=== PATIENT | female | born 1945 | race Caucasian/White ===

== ENCOUNTER → 2020-06-09 09:35 | Outpatient (BNVA) | payer MEDICARE, SELFPAY | PROVIDERS: PCP Internal Medicine; Referring Provider Internal Medicine; Visit Provider Orthopaedic Surgery | DX: M17.12 Unilateral primary osteoarthritis, left knee (principal) | CPT/HCPCS: 20610; 99212; J1040 ==

== ENCOUNTER 2020-08-05 10:40 | Outpatient (REF) | payer MEDICARE, SELFPAY ==
--- NOTE | ~2020-08-05 | XR_ITS ---
EXAMINATION: XR HIP, RIGHT CLINICAL INFORMATION: Pain COMPARISON: None TECHNIQUE: Two views of the right hip and one view of the pelvis. FINDINGS: There is right hip arthritis with joint space narrowing and osteophyte formation. There is a left hip replacement in satisfactory position. There is a soft tissue calcification or ossification adjacent to the left greater trochanter that is unchanged. Bones of the pelvis are unremarkable. There are central pelvic calcifications probably representing calcified fibroids that are stable. There is evidence of atherosclerotic disease. XR/XR hip RT w PEL1V IMPRESSION: Right hip arthritis. Satisfactory appearance of left hip replacement.
== END 2020-08-05 10:41 | disposition home or self-care (01) ==
LOC: HO.HOSX 10:40
PROVIDERS: Visit Provider Orthopaedic Surgery
DX: Z13.89 Encounter for screening for other disorder (principal)

== ENCOUNTER → 2020-08-07 09:01 | Outpatient (BNVA) | payer MEDICARE, SELFPAY | PROVIDERS: Visit Provider Orthopaedic Surgery | DX: M16.11 Unilateral primary osteoarthritis, right hip (principal) | CPT/HCPCS: 73502; 99212 ==

== ENCOUNTER → 2020-09-04 09:09 | Outpatient (BNVA) | payer MEDICARE, SELFPAY | PROVIDERS: Visit Provider Orthopaedic Surgery | DX: M16.11 Unilateral primary osteoarthritis, right hip (principal) | CPT/HCPCS: 99212 ==

== ENCOUNTER 2020-09-15 06:56 | Outpatient (REF) | payer MEDICARE, SELFPAY ==
[2020-09-15 07:29] LABS: Basophils Absolute Auto 0.1 X10*3/uL (0.0-0.2); Basophils Percent Auto 0.8 % (0-2); Eosinophils Absolute Auto 0.4 X10*3/uL (0.0-0.4); Eosinophils Percent Auto 4.5 % (0-4); Hematocrit 40.1 % (37-47); Hemoglobin 13.6 g/dl (12.0-16.0); Imm Gran Abs Auto 0.02 X10*3/uL (0.00-0.03); Imm Gran Pct Auto 0.3 % (0.0-0.4); Lymphocytes Absolute Auto 2.9 X10*3/uL (1.2-4.9); Lymphocytes Percent Auto 36.8 % (20-40); MANUAL DIFF FLAG NO; Mean Corpuscular HGB Conc 33.9 g/dl (31.0-35.0); Mean Corpuscular Hemoglobin 29.4 pg (27.0-33.0); Mean Corpuscular Volume 86.6 fL (80-98); Mean Platelet Volume 9.8 fL (9.4-12.3); Monocytes Absolute Auto 0.4 X10*3/uL (0.1-1.2); Monocytes Percent Auto 5.4 % (2-11); Neutrophils Absolute Auto 4.2 X10*3/uL (2.0-8.3); Neutrophils Percent Auto 52.2 % (45-73); Platelet Count 289 X10*3/uL (160-400); Red Blood Count 4.63 X10*6/uL (4.20-5.50); Red Cell Distribution Width 13.5 % (11.0-16.0)
[2020-09-15 07:55] LABS: Alanine Aminotransferase 24 U/L (0-31); Albumin Level 4.3 g/dL (3.5-5.0); Alkaline Phosphatase 59 U/L (39-117); Anion Gap 16 (12-20); Aspartate Amino Transferase 18 U/L (5-31); Bilirubin Total 0.7 mg/dL (0.0-1.0); Blood Urea Nitrogen 27 mg/dL (9-16); Calcium 9.2 mg/dL (8.4-10.2); Carbon Dioxide 21 mmol/L (22-29); Chloride 107 mmol/L (96-108); Cholesterol 93 mg/dL; Estimated Glomerular Filt Rate 54; Glucose Random 117 mg/dL (60-115); HDL Cholesterol 34 mg/dL; LDL Cholesterol Calculated 24 mg/dl; Potassium 4.8 mmol/L (3.3-5.1); Sodium 139 mmol/L (135-145); Total Protein 6.6 g/dL (6.5-8.0); Triglycerides 176 mg/dL
[2020-09-15 08:14] LABS: Free T4 (Free Thyroxine) 0.89 ng/dL (0.71-1.85); Thyroid Stimulating Hormone 3.23 uIU/mL (0.32-4.0); Vitamin D 25-OH Total 25.2 ng/mL (>30)
[2020-09-15 08:17] LABS: Estimated Average Glucose 157 mg/dL; Hemoglobin A1c % 7.1 %
[2020-09-15 09:28] LABS: Folate > 20.0 ng/mL (> or = 4.0); Vitamin B12 949 pg/mL (200-900)
[2020-09-15 11:19] LABS: Creatinine Urine 141.52 mg/dL; Microalbum/Creatinine Ratio Ur 15.5 ug/mg cr
== END 2020-09-15 06:57 | disposition home or self-care (01) ==
LOC: HO.LAB 06:56
PROVIDERS: PCP Internal Medicine; Visit Provider Internal Medicine
DX: I10 Essential (primary) hypertension (principal); E78.00 Pure hypercholesterolemia, unspecified; E11.65 Type 2 diabetes mellitus with hyperglycemia
CPT/HCPCS: 36415; 80053; 80061; 82043; 82306; 82607; 82746; 83036; 84439; 84443; 85025

== ENCOUNTER 2020-09-19 09:35 | Outpatient (REF) | payer MEDICARE, SELFPAY ==
--- NOTE | ~2020-09-19 | MM_ITS ---
EXAMINATION: MM SCREENING DIGITAL BREAST TOMOSYNTHESIS, BILATERAL CLINICAL INFORMATION: Screening. Asymptomatic. Remote history reduction mammoplasty 1986. The lifetime risk of breast cancer based on the Tyrer-Cuzick Model is 5%. COMPARISON: Mammography: 01/03/2019, 11/19/2015 TECHNIQUE: Digital breast tomosynthesis is performed in both the craniocaudal and mediolateral oblique views along with computer-aided detection (CAD). Synthesized 2D images are generated from the tomosynthesis. FINDINGS: There are scattered areas of fibroglandular density (ACR BI-RADS breast composition Category b). There are no significant masses, abnormal calcifications, or other abnormalities. Again, there is minor background scarring and scattered benign coarse and dystrophic calcifications, greater on left, consistent with the prior reduction mammoplasty. There are some dermal calcifications seen posterior medial breasts and a dermal lesion posterior medial left breast. There are no significant changes from prior studies. MM/MM tomosynthesis screening BI IMPRESSION: No mammographic evidence of malignancy. ASSESSMENT: BI-RADS 2: Benign RECOMMENDATION: Routine annual mammography screening. This patient's information was entered into a reminder system with a target due date for their next mammogram.
== END 2020-09-19 09:36 | disposition home or self-care (01) ==
LOC: HO.MAMMO 09:35
PROVIDERS: PCP Internal Medicine; Visit Provider Internal Medicine
DX: Z12.31 Encounter for screening mammogram for malignant neoplasm of breast (principal)
CPT/HCPCS: 77063; 77067

== ENCOUNTER → 2021-02-03 10:31 | Outpatient (BNVA) | payer MEDICARE, SELFPAY | PROVIDERS: PCP Internal Medicine; Visit Provider Orthopaedic Surgery | DX: M17.12 Unilateral primary osteoarthritis, left knee (principal) | CPT/HCPCS: 20610; 99212; J1040 ==

== ENCOUNTER → 2021-06-04 09:08 | Outpatient (BNVA) | payer MEDICARE, SELFPAY | PROVIDERS: PCP Internal Medicine; Visit Provider Orthopaedic Surgery | DX: M17.12 Unilateral primary osteoarthritis, left knee (principal); E11.65 Type 2 diabetes mellitus with hyperglycemia; F17.210 Nicotine dependence, cigarettes, uncomplicated | CPT/HCPCS: 20610; 99212; J1100 ==

== ENCOUNTER 2021-09-13 06:29 | Outpatient (REF) | payer MEDICARE, SELFPAY ==
[2021-09-13 06:45] LABS: MANUAL DIFF FLAG NO
[2021-09-13 07:21] LABS: Basophils Absolute Auto 0.1 X10*3/uL (0.0-0.2); Basophils Percent Auto 0.6 % (0-2); Eosinophils Absolute Auto 0.4 X10*3/uL (0.0-0.4); Eosinophils Percent Auto 3.3 % (0-4); Hematocrit 43.7 % (37.0-47.0); Hemoglobin 14.2 g/dl (12.0-16.0); Imm Gran Abs Auto 0.05 X10*3/uL (0.00-0.03); Imm Gran Pct Auto 0.4 % (0.0-0.4); Lymphocytes Absolute Auto 3.8 X10*3/uL (1.2-4.9); Lymphocytes Percent Auto 32.2 % (20-40); Mean Corpuscular HGB Conc 32.5 g/dl (31.0-35.0); Mean Corpuscular Hemoglobin 28.4 pg (27.0-33.0); Mean Corpuscular Volume 87.4 fL (80.0-98.0); Mean Platelet Volume 10.2 fL (9.4-12.3); Monocytes Absolute Auto 0.8 X10*3/uL (0.1-1.2); Monocytes Percent Auto 6.6 % (2-11); Neutrophils Absolute Auto 6.7 x10*3/uL (2.0-8.3); Neutrophils Percent Auto 56.9 % (45-73); Platelet Count 383 X10*3/uL (160-400); Red Cell Distribution Width 13.2 % (11.0-16.0); White Blood Count 11.8 X10*3/uL (4.8-10.8)
[2021-09-13 07:29] LABS: Estimated Average Glucose 148 mg/dL; Hemoglobin A1c % 6.8 %
[2021-09-13 07:59] LABS: Alanine Aminotransferase 31 U/L (0-31); Albumin Level 4.3 g/dL (3.5-5.0); Alkaline Phosphatase 71 U/L (39-117); Anion Gap 15 (12-20); Aspartate Amino Transferase 20 U/L (5-31); Bilirubin Total 0.6 mg/dL (0.0-1.0); Blood Urea Nitrogen 20 mg/dL (9-16); Calcium 10.1 mg/dL (8.4-10.2); Carbon Dioxide 21 mmol/L (22-29); Chloride 109 mmol/L (96-108); Cholesterol 87 mg/dL; Estimated Glomerular Filt Rate 55; Glucose Random 171 mg/dL (60-115); HDL Cholesterol 32 mg/dL; LDL Cholesterol Calculated 24 mg/dl; Potassium 5.2 mmol/L (3.3-5.1); Sodium 140 mmol/L (135-145); Total Protein 6.7 g/dL (6.5-8.0); Triglycerides 156 mg/dL
[2021-09-13 08:19] LABS: Free T4 (Free Thyroxine) 0.93 ng/dL (0.71-1.85); Thyroid Stimulating Hormone 2.47 uIU/mL (0.32-4.0); Vitamin D 25-OH Total 27.7 ng/mL (>30)
[2021-09-13 09:08] LABS: Folate > 20.0 ng/mL (> or = 4.0); Vitamin B12 1094 pg/mL (200-900)
[2021-09-13 13:15] LABS: Creatinine Urine 187.46 mg/dL; Microalbum/Creatinine Ratio Ur 33.6 ug/mg cr
== END 2021-09-13 06:30 | disposition home or self-care (01) ==
LOC: HO.LAB 06:29
PROVIDERS: PCP Internal Medicine; Visit Provider Internal Medicine
DX: I10 Essential (primary) hypertension (principal); E11.65 Type 2 diabetes mellitus with hyperglycemia; E78.00 Pure hypercholesterolemia, unspecified
CPT/HCPCS: 36415; 80053; 80061; 82043; 82306; 82607; 82746; 83036; 84439; 84443; 85025

== ENCOUNTER → 2021-10-11 10:23 | Outpatient (BNVA) | payer MEDICARE, SELFPAY | PROVIDERS: PCP Internal Medicine; Visit Provider Orthopaedic Surgery | DX: M17.0 Bilateral primary osteoarthritis of knee (principal); E11.65 Type 2 diabetes mellitus with hyperglycemia | CPT/HCPCS: 20610; 99212; J1100 ==

== ENCOUNTER 2021-10-12 09:33 | Outpatient (REF) | payer MEDICARE, SELFPAY ==
--- NOTE | ~2021-10-12 | MM_ITS ---
EXAMINATION: MM SCREENING DIGITAL BREAST TOMOSYNTHESIS, BILATERAL CLINICAL INFORMATION: Screening. Asymptomatic. Remote reduction mammoplasty, 1986. The lifetime risk of breast cancer based on the Tyrer-Cuzick Model is 4%. COMPARISON: Mammography: 09/19/2020, 01/03/2019, 11/19/2015 TECHNIQUE: Digital breast tomosynthesis is performed in both the craniocaudal and mediolateral oblique views along with computer-aided detection (CAD). Synthesized 2D images are generated from the tomosynthesis. FINDINGS: There are scattered areas of fibroglandular density (ACR BI-RADS breast composition Category b). There are no significant masses, abnormal calcifications, or other abnormalities. Parenchymal pattern is similar to prior studies. There is minor scarring and scattered benign dystrophic calcifications as noted previously consistent with the remote reduction mammoplasty. The axilla are unremarkable. There are no significant changes. MM/MM tomosynthesis screening BI IMPRESSION: No mammographic evidence of malignancy. ASSESSMENT: BI-RADS 2: Benign RECOMMENDATION: Routine annual mammography screening. This patient's information was entered into a reminder system with a target due date for their next mammogram.
== END 2021-10-12 09:34 | disposition home or self-care (01) ==
LOC: HO.MAMMO 09:33
PROVIDERS: PCP Internal Medicine; Visit Provider Internal Medicine
DX: Z12.31 Encounter for screening mammogram for malignant neoplasm of breast (principal)
CPT/HCPCS: 77063; 77067

== ENCOUNTER 2022-02-01 | Outpatient (REF) | payer MEDICARE, SELFPAY ==
--- NOTE | 2022-02-01 12:16 | ECG_ITS ---
Test Reason : z01.818 Blood Pressure : / mmHG Vent. Rate : 069 BPM Atrial Rate : 276 BPM P-R Int : 000 ms QRS Dur : 078 ms QT Int : 392 ms P-R-T Axes : 085 048 024 degrees QTc Int : 420 ms Atrial flutter with 4:1 A-V conduction Septal infarct , age undetermined Abnormal ECG When compared with ECG of 08-FEB-2009 15:12, Atrial flutter has replaced Sinus rhythm Criteria for Inferior infarct are no longer Present QT has shortened Referred By: Yoni Paul Electronically Signed By:PRINCE REYES
[2022-02-01 12:24] LABS: MANUAL DIFF FLAG NO
[2022-02-01 12:43] LABS: Basophils Absolute Auto 0.1 X10*3/uL (0.0-0.2); Basophils Percent Auto 0.7 % (0-2); Eosinophils Absolute Auto 0.4 X10*3/uL (0.0-0.4); Eosinophils Percent Auto 3.5 % (0-4); Hematocrit 44.2 % (37.0-47.0); Hemoglobin 14.9 g/dl (12.0-16.0); Imm Gran Abs Auto 0.05 X10*3/uL (0.00-0.03); Imm Gran Pct Auto 0.5 % (0.0-0.4); Lymphocytes Absolute Auto 2.9 X10*3/uL (1.2-4.9); Lymphocytes Percent Auto 27.5 % (20-40); Mean Corpuscular HGB Conc 33.7 g/dl (31.0-35.0); Mean Corpuscular Volume 83.1 fL (80.0-98.0); Mean Platelet Volume 9.6 fL (9.4-12.3); Monocytes Absolute Auto 0.7 X10*3/uL (0.1-1.2); Monocytes Percent Auto 6.6 % (2-11); Neutrophils Absolute Auto 6.5 x10*3/uL (2.0-8.3); Neutrophils Percent Auto 61.2 % (45-73); Platelet Count 326 X10*3/uL (160-400); Red Blood Count 5.32 X10*6/uL (4.20-5.50); Red Cell Distribution Width 12.6 % (11.0-16.0); White Blood Count 10.6 X10*3/uL (4.8-10.8)
[2022-02-01 13:29] LABS: Anion Gap 18 (12-20); Blood Urea Nitrogen 15 mg/dL (9-16); Carbon Dioxide 24 mmol/L (22-29); Chloride 101 mmol/L (96-108); Estimated Glomerular Filt Rate 51; Glucose Random 199 mg/dL (60-115); Potassium 4.5 mmol/L (3.3-5.1); Sodium 138 mmol/L (135-145)
== END 2022-02-01 00:01 ==
LOC: HO.PAT
PROVIDERS: PCP Internal Medicine; Visit Provider Orthopaedic Surgery
DX: Z01.818 Encounter for other preprocedural examination (principal)
CPT/HCPCS: 36415; 80048; 85025; 93005

== ENCOUNTER 2022-02-01 12:59 | Emergency (ER) | payer MEDICARE, SELFPAY ==
--- NOTE | ~2022-02-01 | XR_ITS ---
EXAMINATION: XR CHEST CLINICAL INFORMATION: Chest pain COMPARISON: 02/08/2009 TECHNIQUE: 2 views of the chest were obtained. FINDINGS: There are mildly increased interstitial markings bilaterally. No evidence of infiltrates nodules or pleural effusion and cardiomediastinal silhouette is normal XR/XR chest 2V IMPRESSION: There is interstitial markings
[2022-02-01 13:05] VITALS: BP 149/73; PULSE 70; RESP 14; O2SAT 97; BMI 28.0
--- NOTE | 2022-02-01 13:21 | ED_ITS ---
HPI - Arrhythmia/Palpitations General Chief Complaint: Arrhythmia/Palpitations Stated Complaint: abnormal ekg Time Seen by Provider: 02/01/22 13:19 Source: patient Mode of arrival: ambulatory Limitations: no limitations History of Present Illness HPI narrative: 76-year-old female who presents emergency department for evaluation of an abnormal EKG. The patient states that she was getting preop EKG and laboratory tests for medical clearance for a right total knee replacement scheduled for 02/15/2022. The patient had an EKG done by the formula technician and was found to be in atrial flutter and 4-1 block therefore she was brought to emergency department for evaluation. The patient does not have a history of atrial fibrillation, atrial flutter, MS or known coronary artery disease. She states that she was in her usual health and was not feeling ill in any way. She states that she occasionally gets chest pain and she had an episode of chest pain 1 week prior which she states was located in her left chest, lasted seconds to minutes, and was a ?faint pain ?which was 2/10 at its worst. She denied fever, chills, rhinorrhea, sore throat. She states she has an occasional nonproductive cough. She denied shortness of breath, dyspnea on exertion, orthopnea, peripheral extremity swelling, nausea, vomiting, diarrhea, abdominal pain. She denied dysuria but states she occasionally gets frequency. She denied black tarry stools or bloody stools. Twelve EKG done here in the emergency department at 12:21 hours revealed atrial flutter with a 4-1 block with poor R-wave progression from V1 through V3. I do not have an old EKG for comparison. Related Data Home Medications Medication Instructions Recorded Confirmed aspirin 81 mg tablet,delayed 81 mg PO DAILY 07/16/20 01/25/22 release (Adult Aspirin Regimen) clonazepam 1 mg tablet (Klonopin) 1 mg PO TID 07/16/20 01/25/22 fenofibrate 160 mg tablet 160 mg PO DAILY 07/16/20 01/25/22 sertraline 50 mg tablet (Zoloft) 50 mg PO DAILY 07/16/20 01/25/22 sitagliptin 100 mg tablet (Januvia) 100 mg PO DAILY 07/16/20 01/25/22 Previous Rx's Medication Instructions Recorded lancets 28 gauge (FreeStyle #3 boxes 10/23/20 Lancets) blood sugar diagnostic (FreeStyle 1 strip miscellaneous DAILY 90 04/19/21 Lite Strips) days #100 caps metformin 1,000 mg tablet 1,000 mg PO BID #180 caps 05/21/21 cholecalciferol (vitamin D3) 25 25 mcg PO DAILY #90 caps 07/01/21 mcg (1,000 unit) tablet lisinopril 20 mg tablet 20 mg PO DAILY #90 caps 07/01/21 cyanocobalamin (vitamin B-12) 1,000 mcg PO DAILY 90 days #90 caps 07/15/21 1,000 mcg tablet (Vitamin B-12) folic acid 1 mg tablet 1 mg PO DAILY #90 tabs 07/29/21 simvastatin 40 mg tablet 40 mg PO DAILY 90 days #90 tabs 07/29/21 Allergies Allergy/AdvReac Type Severity Reaction Status Date / Time No Known Allergies Allergy Verified 01/04/22 10:53 [No Known Allergies*] Review of Systems Review of Systems: Yes all other systems are reviewed and are negative PMFSH Past Medical History Medical History Hypercholesterolemia Hypertension Insomnia Obesity (BMI 30.0-34.9) Osteoarthrosis Overweight (BMI 25.0-29.9) Primary osteoarthritis of left knee Second degree AV block Tobacco abuse Type 2 diabetes mellitus with hyperglycemia Surgical History H/O breast reconstruction History of cholecystectomy History of hip replacement History of tonsillectomy Family History Family History Father Cancer Mother Medical history unknown Brother Liver cancer Sister Hypertension COPD (chronic obstructive pulmonary disease) Social History Social History Housing: Apartment Alcohol intake: never Patient Tobacco Use Status: Current someday Tobacco user Tobacco use type: Cigarette Cigarettes Per Day: 2 e-Cigarette/Vaping Use: Never Used Second Hand Smoke Exposure: No Use of substances other than those prescribed or required for medical reasons: No Advance Directives: No Advance Directives Information Provided: No service: No Current occupational status: retired Current occupation: Right Handed Cognitive needs: No Hearing needs: No Vision needs: Yes Physical Exam Vital Signs: Vital Signs: Last Vital Signs Temp 98.2 F 02/01/22 14:24 Pulse 63 02/01/22 14:24 Resp 13 02/01/22 14:24 BP 168/75 H 02/01/22 14:24 Pulse Ox 96 02/01/22 14:24 O2 Del Method 02/01/22 14:24 BMI result Body Mass Index 28.0 Const: General: cooperative and no acute distress Orientation/consciousness: oriented to person and oriented to place Limitations: no limitations HEENT: Head: Yes normal to inspection, Yes normocephalic and Yes atraumatic Ears: external ears normal General nose exam: Normal external nose present Face and sinus: Yes normal facial exam Mouth: Normal oral and palatal mucosa present Throat: Yes posterior oropharynx normal Eyes: General: appearance normal, both eyes and all related structures Pupils: Equal, round and reactive pupils present Neck: Neck: Yes normal visual inspection, Yes no lymphadenopathy, Yes trachea midline and Yes supple Chest: Chest palpation & inspection: normal inspection of the chest and normal palpation of entire chest wall Resp: Effort & Inspection: normal respiratory effort and able to speak in complete sentences Auscultation: clear to auscultation bilaterally Cardio: Rate: regular rate Rhythm: regular rhythm Heart sounds: S1 normal heart sound present, S2 normal heart sound present and no murmurs GI: Inspection: Yes normal to inspection Palpation (GI): Soft to palpation, nontender and no guarding Auscultation: normal bowel sounds : General: Yes no CVA tenderness Back/Spine/Pelvis: Back: no CVA tenderness Skin: General skin exam: no rashes or lesions noted Neuro: General: oriented to person and oriented to place Cranial nerves: Yes CN's II-XII intact bilaterally and Yes Equal, round and reactive pupils present Cognition (Neuro): normal cognition Motor exam (neuro): 5/5 motor strength present throughout Extrem: General: Yes normal to inspection Psych: Appearance: grossly normal Speech and movement: Normal speech and movement present Affect: normal affect Attitude: cooperative Thought process: Normal thought process present Thought content: Normal thought content present Course Course Course Narrative: 76-year-old female who presents emergency department for evaluation an abnormal EKG. The patient came to the hospital today to get her preop laboratory evaluation and preop EKG for medical clearance for a right total knee replace ment scheduled for 02/15/2022. Patient had an EKG that was consistent with atrial flutter and the EKG here in the emergency department revealed atrial flutter with a rate 70 with a 4-1 AV block. The patient has no symptoms. She states that she occasionally gets chest pain and had an episode of chest pain 1 week prior which was located in her left chest, was brief lasting minutes and was mild in intensity. I did order laboratory evaluation to include CBC, CMP,PT/INR, PTT, troponin, TSH with reflex T4. Two-view chest x-ray will also be obtained. Patient will be kept on a cardiac and O2 saturation monitor while she is here in the emergency department being evaluated. 1736: Patient's laboratory evaluation was unremarkable. Troponin was detectable but not elevated at 16.4. TSH was normal. Chest x-ray is unremarkable. I wanted to admit the patient for further evaluation and manageme nt of her atrial flutter however the patient states that she has to go home and does not want to stay in the hospital. She is aware that her heart rate goes down to 40 beats per minute and that it is possible she could go home, become lightheaded dizzy, fall and injure herself with she may have a stroke secondary to her atrial fibrillation. Despite these possible bad outcomes, the patient still wants to leave against medical advice. MDM - Arrhythmia/Palpitations Lab Data Attestation: I reviewed the patient's lab results. Result diagrams: 02/01/22 13:19 02/01/22 13:19 Labs: Lab Results 02/01/22 02/01/22 02/01/22 Range/Units 13:19 13:19 13:19 WBC 9.4 (4.8-10.8) X10*3/uL RBC 5.07 (4.20-5.50) X10*6/uL Hgb 14.2 (12.0-16.0) g/dl Hct 42.5 (37.0-47.0) % MCV 83.8 (80.0-98.0) fL MCH 28.0 (27.0-33.0) pg MCHC 33.4 (31.0-35.0) g/dl RDW 12.5 (11.0-16.0) % Plt Count 292 (160-400) X10*3/uL MPV 9.4 (9.4-12.3) fL Immature Gran % (Auto) 0.4 (0.0-0.4) % Neut % (Auto) 63.7 (45-73) % Lymph % (Auto) 25.5 (20-40) % [place] % (Auto) 6.3 (2-11) % Eos % (Auto) 3.4 (0-4) % Baso % (Auto) 0.7 (0-2) % Lymph # (Auto) 2.4 (1.2-4.9) X10*3/uL [place] # (Auto) 0.6 (0.1-1.2) X10*3/uL Eos # (Auto) 0.3 (0.0-0.4) X10*3/uL Baso # (Auto) 0.1 (0.0-0.2) X10*3/uL Abs Immat Gran (auto) 0.04 H (0.00-0.03) X10*3/uL Absolute Neuts (auto) 6.0 (2.0-8.3) x10*3/uL Absolute Nucleated RBC 0.000 (0.0-0.012) X10*3/uL Nucleated RBC % (auto) 0.0 (0.0-0.2) /100WBC PT 11.5 (10.0-13.1) SEC INR 1.0 (0.9-1.1) APTT 34.9 (26.0-36.4) SEC Sodium 138 (135-145) mmol/L Potassium 4.2 (3.3-5.1) mmol/L Chloride 102 (96-108) mmol/L Carbon Dioxide 25 (22-29) mmol/L Anion Gap 15 (12-20) BUN 15 (9-16) mg/dL Creatinine 1.03 (0.5-1.4) mg/dL Estim Creat Clear Calc 48.3 Estimated GFR 52 Random Glucose 226 H (60-115) mg/dL Calcium 9.6 (8.4-10.2) mg/dL Total Bilirubin 0.2 (0.0-1.0) mg/dL AST 20 (5-31) U/L ALT 24 (0-31) U/L Alkaline Phosphatase 64 (39-117) U/L Troponin I High Sens (<3.5-17.0) ng/L Total Protein 6.3 L (6.5-8.0) g/dL Albumin 4.0 (3.5-5.0) g/dL TSH 1.61 (0.32-4.0) uIU/mL 02/01/22 Range/Units 13:20 WBC (4.8-10.8) X10*3/uL RBC (4.20-5.50) X10*6/uL Hgb (12.0-16.0) g/dl Hct (37.0-47.0) % MCV (80.0-98.0) fL MCH (27.0-33.0) pg MCHC (31.0-35.0) g/dl RDW (11.0-16.0) % Plt Count (160-400) X10*3/uL MPV (9.4-12.3) fL Immature Gran % (Auto) (0.0-0.4) % Neut % (Auto) (45-73) % Lymph % (Auto) (20-40) % [place] % (Auto) (2-11) % Eos % (Auto) (0-4) % Baso % (Auto) (0-2) % Lymph # (Auto) (1.2-4.9) X10*3/uL [place] # (Auto) (0.1-1.2) X10*3/uL Eos # (Auto) (0.0-0.4) X10*3/uL Baso # (Auto) (0.0-0.2) X10*3/uL Abs Immat Gran (auto) (0.00-0.03) X10*3/uL Absolute Neuts (auto) (2.0-8.3) x10*3/uL Absolute Nucleated RBC (0.0-0.012) X10*3/uL Nucleated RBC % (auto) (0.0-0.2) /100WBC PT (10.0-13.1) SEC INR (0.9-1.1) APTT (26.0-36.4) SEC Sodium (135-145) mmol/L Potassium (3.3-5.1) mmol/L Chloride (96-108) mmol/L Carbon Dioxide (22-29) mmol/L Anion Gap (12-20) BUN (9-16) mg/dL Creatinine (0.5-1.4) mg/dL Estim Creat Clear Calc Estimated GFR Random Glucose (60-115) mg/dL Calcium (8.4-10.2) mg/dL Total Bilirubin (0.0-1.0) mg/dL AST (5-31) U/L ALT (0-31) U/L Alkaline Phosphatase (39-117) U/L Troponin I High Sens 16.4 (<3.5-17.0) ng/L Total Protein (6.5-8.0) g/dL Albumin (3.5-5.0) g/dL TSH (0.32-4.0) uIU/mL ECG Data Attestation: I personally reviewed and interpreted this ECG as follows: Interpretation: 1221: Atrial flutter with a ventricular rate of 69, 4-1 block, no ST segment elevation, no ST segment depression, poor R-wave progression V1 through V3, no PVCs. There is no old EKG for comparison. 1607: Atrial flutter with a rate of 52, no ST segment elevation or depression, poor R-wave progression V1 through V3, no PVCs, unchanged from the 1st EKG done as an outpatient at 12:21 Discharge Plan Discharge Clinical Impression: New onset atrial flutter Patient Disposition: Left Against Medical Advice Instructions: Atrial Flutter (ED) Additional Instructions: Your blood work was unremarkable. Your EKG however is consistent with atrial flutter. Atrial flutter can lead to strokes. Also, your heart rate is very slow and it is possible if you leave the hospital you could pass out, hit your head and . If you change your mind and want to be hospitalized, please return to the emergency department. Follow-up with your doctor tomorrow for re-evaluation. Your doctor can start you on blood thinners possibly other medications to help with your atrial flutter. Please return to the emergency department if your symptoms get worse or if you d evelop any symptoms that are concerning to you. Prescriptions: No Action (DME) lancets [FreeStyle Lancets] 28 gauge misc See Rx Instructions .ROUTE .MEDSUPPLY Qty: 3 3RF Rx Instructions: As directed check BS TID FreeStyle Lite Strips Strip 1 strip miscellaneous DAILY 90 Days Qty: 100 3RF metformin 1,000 mg tablet 1,000 mg PO BID Qty: 180 2RF lisinopril 20 mg tablet 20 mg PO DAILY Qty: 90 3RF cholecalciferol (vitamin D3) 25 mcg (1,000 unit) tablet 25 mcg PO DAILY Qty: 90 3RF cyanocobalamin (vitamin B-12) [Vitamin B-12] 1,000 mcg tablet 1,000 mcg PO DAILY 90 Days Qty: 90 2RF sertraline [Zoloft] 50 mg tablet 50 mg PO DAILY clonazepam [Klonopin] 1 mg tablet 1 mg PO TID fenofibrate 160 mg tablet 160 mg PO DAILY aspirin [Adult Aspirin Regimen] 81 mg tablet,delayed release (DR/EC) 81 mg PO DAILY Januvia 100 mg tablet 100 mg PO DAILY folic acid 1 mg tablet 1 mg PO DAILY Qty: 90 3RF simvastatin 40 mg tablet 40 mg PO DAILY 90 Days Qty: 90 2RF Stand Alone Forms: Against Medical Advice
[2022-02-01 13:25] LABS: MANUAL DIFF FLAG NO
[2022-02-01 13:27] LABS: Basophils Absolute Auto 0.1 X10*3/uL (0.0-0.2); Basophils Percent Auto 0.7 % (0-2); Eosinophils Absolute Auto 0.3 X10*3/uL (0.0-0.4); Eosinophils Percent Auto 3.4 % (0-4); Hematocrit 42.5 % (37.0-47.0); Hemoglobin 14.2 g/dl (12.0-16.0); Imm Gran Abs Auto 0.04 X10*3/uL (0.00-0.03); Imm Gran Pct Auto 0.4 % (0.0-0.4); Lymphocytes Absolute Auto 2.4 X10*3/uL (1.2-4.9); Lymphocytes Percent Auto 25.5 % (20-40); Mean Corpuscular HGB Conc 33.4 g/dl (31.0-35.0); Mean Corpuscular Volume 83.8 fL (80.0-98.0); Mean Platelet Volume 9.4 fL (9.4-12.3); Monocytes Absolute Auto 0.6 X10*3/uL (0.1-1.2); Monocytes Percent Auto 6.3 % (2-11); Neutrophils Percent Auto 63.7 % (45-73); Platelet Count 292 X10*3/uL (160-400); Red Blood Count 5.07 X10*6/uL (4.20-5.50); Red Cell Distribution Width 12.5 % (11.0-16.0); White Blood Count 9.4 X10*3/uL (4.8-10.8)
[2022-02-01 13:32] LABS: Prothrombin Time 11.5 SEC (10.0-13.1)
[2022-02-01 13:45] LABS: Alanine Aminotransferase 24 U/L (0-31); Alkaline Phosphatase 64 U/L (39-117); Anion Gap 15 (12-20); Aspartate Amino Transferase 20 U/L (5-31); Bilirubin Total 0.2 mg/dL (0.0-1.0); Blood Urea Nitrogen 15 mg/dL (9-16); Calcium 9.6 mg/dL (8.4-10.2); Carbon Dioxide 25 mmol/L (22-29); Chloride 102 mmol/L (96-108); Creatinine Clr Calc Pharmacy 48.3; Estimated Glomerular Filt Rate 52; Glucose Random 226 mg/dL (60-115); Potassium 4.2 mmol/L (3.3-5.1); Sodium 138 mmol/L (135-145); Total Protein 6.3 g/dL (6.5-8.0)
[2022-02-01 13:52] LABS: Troponin-I High Sensitivity 16.4 ng/L (<3.5-17.0)
--- NOTE | 2022-02-01 13:53 | PC.NURSE ---
Mitzi (daughter) work phone [phone] ext [phone]
[2022-02-01] MEDS: 0.9 % Sodium Chloride 1,000 ML 999 ML IV (13:56)
[2022-02-01 14:11] LABS: TSH reflex Free T4 1.61 uIU/mL (0.32-4.0)
[2022-02-01 14:24] VITALS: BP 168/75; PULSE 63; RESP 13; TEMP 36.8; O2SAT 96
--- NOTE | 2022-02-01 14:48 | PC.NURSE ---
Addendum entered by Dianne Santizo 02/01/22 14:55: pt's daughter (lyudmila' kodi) work extension is [phone]. Original Note: pt's daughter lyudmila brown (w- [phone]; c- [phone]) [place] [facility] [place].
[2022-02-01 14:52] LABS: Partial Thromboplastin Time 34.9 SEC (26.0-36.4)
--- NOTE | 2022-02-01 14:54 | PC.NURSE ---
Addendum entered by Bri Liu LPN 02/01/22 15:07: patient remains asymptomatic . Original Note: patient a/o x4 . pearrla . lungs clear . heart rate irregular 57-59 beats . skin pink warm and dry . abdomen soft non tender with positive bowel sounds in all four quadrants . patient reports having and EKG done today for preop and being told it was concerning and sent to ED for further evaluation . patient on teletypesetter monitor . patient currently in aflutter asymptomatic . . aware .
--- NOTE | 2022-02-01 16:07 | ECG_ITS ---
Test Reason : repeat Blood Pressure : / mmHG Vent. Rate : 052 BPM Atrial Rate : 264 BPM P-R Int : 000 ms QRS Dur : 100 ms QT Int : 460 ms P-R-T Axes : 259 014 046 degrees QTc Int : 427 ms Atrial flutter with variable A-V block Septal infarct (cited on or before 01-FEB-2022) Abnormal ECG When compared with ECG of 01-FEB-2022 12:21, QRS duration has increased Referred By: Jona Low Electronically Signed By:PRINCE REYES
== END 2022-02-01 18:01 | disposition left against medical advice (07) ==
PROVIDERS: Emergency Provider Emergency Medicine Emergency Medical Services; PCP Internal Medicine
DX: R00.2 Palpitations (principal); I48.92 Unspecified atrial flutter; R94.31 Abnormal electrocardiogram [ECG] [EKG]; F17.210 Nicotine dependence, cigarettes, uncomplicated; Z71.6 Tobacco abuse counseling; Z79.899 Other long term (current) drug therapy
CPT/HCPCS: 36415; 71046; 80053; 84443; 84484; 85025; 85610; 85730; 93005; 96360; 99284; 99285

== ENCOUNTER → 2022-02-11 10:18 | Outpatient (REF) | payer MEDICARE, SELFPAY ==
--- NOTE | 2022-02-11 10:21 | CA_ITS ---
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 Study Quality: Adequate ECG Rhythm: Atrial flutter Conclusions: - The left ventricular systolic function is normal. The calculated ejection fraction is 58% by biplane method. - Moderate to severe focal basal septal hypertrophy. - The basal inferior and basal inferolateral segments are akinetic. - No obvious valvular pathology seen on this study. Findings Left Ventricle Normal left ventricular cavity size. The left ventricular systolic function is normal. The calculated ejection fraction is 58% by biplane method. There is no evidence of regional wall motion abnormalities. Diastolic function is indeterminate on the basis of available data. Moderate to severe focal basal septal hypertrophy. Wall Motion Rest Echo Findings The basal inferior and basal inferolateral segments are akinetic. Right Ventricle Normal right ventricular cavity size and systolic function. Atria The left atrium is mildly dilated. The right atrium is normal in size. Aortic Valve There is a normal trileaflet aortic valve. There is mild calcification of the aortic valve. There is no aortic valve stenosis. There is trace (trivial) aortic valve regurgitation. Mitral Valve The mitral valve appears normal. There is no mitral valve regurgitation. There is no mitral valve stenosis. Pulmonic Valve The pulmonic valve is likely normal. Tricuspid Valve Normal tricuspid valve structure. There is no tricuspid valve regurgitation. Tricuspid regurgitation envelope is inadequate for calculation of right ventricular systolic pressure. Great Vessels The asc aorta is normal in size. Venous The inferior vena cava is normal in size and collapses greater than 50% with inspiration. Pericardium/Pleural There is no evidence of pericardial effusion. Prior Study Comparison No prior study available for comparison. Recommendations, Care & Conclusions No obvious valvular pathology seen on this study. Measurements 2D Linear Measurements IVSd: 1.47 0.6-0.9/0.6-1.0 cm LVIDd: 4.19 3.9-5.3/4.2-5.9 cm LVIDd Index: 2.33 2.4-3.2/2.2-3.1 cm/m2 LVIDs: 3.11 2.0-3.6 cm LVPWd: 0.79 0.7-1.1 cm LA Diam: 4.10 2.7-3.8/3.0-4.0 cm LAIDs Index: 2.28 1.5-2.3 cm/m2 LV Mass: 201.92 67-162/88-224 g LV Mass Index: 112.18 43-95/49-115 g/m2 LVOT Diam: 2.10 3.0+(-)1.3 cm 2D Systolic Function EF 4C: 61.60 >55% EF 2C: 58.60 >55% EF BiP: 57.90 >55% Mitral Valve MV Pk E: 1.23 E'Lateral: 11.00 E'Medial: 7.83 E/E' Med: 15.70 E/E' Lat: 11.20 Aortic Valve AoV Pk Donell: 1.34 AoV Mn Donell: 0.87 AoV VTI: 0.25 AoV Pk Grad: 7.00 Aov Mn Grad: 3.00 SAMIRA Cont.VTI: 2.84 LVOT LVOT Pk Donell: 1.11 LVOT Mn Donell: 0.74 LVOT VTI: 0.20 LVOT Pk Grad: 5.00 LVOT Mn Grad: 2.00 LVOT Diam: 2.10 LVOT Area: 3.46 Diastolic Function MV Pk E: 1.23 E'Medial: 7.83 E/E' Med: 15.70 E' Laterial: 11.00 E/E' Lat: 11.20 Right Ventricle TAPSE (mm): 17.50 TVS' Donell: 13.10 Tricuspid Valve RA Press: 3.00 Great Vessels Aorta Sinus of Valsalva: 3.10 2.0-3.5 cm Ao Asc: 3.30 2.1-3.4 cm Pulmonary Valve PV Pk Donell: 0.80 Peak PV Grad: 3.00 Updated in Other Vendor System with Status of Final Cooper Irizarry MD electronically signed on 02/13/2022 12:40:52 PM with status of Final
== END ==
LOC: HO.CARD 10:18
PROVIDERS: PCP Internal Medicine; Visit Provider Internal Medicine
DX: Z86.73 Personal history of transient ischemic attack (TIA), and cerebral infarction without residual deficits (principal)
CPT/HCPCS: 93306

== ENCOUNTER → 2022-03-10 13:12 | Outpatient (BNVA) | payer MEDICARE, SELFPAY | PROVIDERS: PCP Internal Medicine; Referring Provider Internal Medicine; Visit Provider Internal Medicine | DX: I48.92 Unspecified atrial flutter (principal); I25.10 Atherosclerotic heart disease of native coronary artery without angina pectoris; Z79.01 Long term (current) use of anticoagulants | CPT/HCPCS: 99202 ==

== ENCOUNTER → 2022-03-24 10:30 | Outpatient (BNVA) | payer MEDICARE, SELFPAY | PROVIDERS: PCP Internal Medicine; Visit Provider Orthopaedic Surgery | DX: M17.0 Bilateral primary osteoarthritis of knee (principal) | CPT/HCPCS: 20610; 99212; J1100 ==

== ENCOUNTER → 2022-03-25 10:08 | Outpatient (REF) | payer MEDICARE, SELFPAY ==
--- NOTE | ~2022-03-25 | NM_ITS ---
Myocardial perfusion study Indication: CAD Technique: The patient was brought in for a Lexiscan perfusion study on 03/25/2022. Patient performed low-level exercise and was injected 0.4 mg of Lexiscan intravenously. Within a minute of injection, 25 mCi of sestamibi was given intravenously. Images were obtained using the SPECT gamma camera interlaced with the gating device. Images were obtained in supine position. Resting perfusion study was performed on 03/30/2022. Patient was administered 25 mCi of sestamibi intravenously at rest. Images were then obtained in supine position. Images were processed with the software and compared side to side in short axis, horizontal long axis and vertical long axis views. Findings: The stress perfusion study showed non attenuated images show oral normal uptake of radiotracer in all segments of LV myocardium with some thinning of the apical portion of the inferolateral wall. Attenuation corrected images show overall normal uptake of radiotracer in all segments of LV myocardium on thinning of the apical wall.. The gated study shows normal LV systolic function with visually estimated LVEF of greater than 60%. LV cavity is normal in size. The gated study shows normal systolic wall thickening and contraction of segments. Resting study shows non attenuated images show no significant change compared to stress perfusion study. Attenuation corrected images are suboptimal with moderately reduced uptake in the distal anterior, apical and inferoapical wall of the LV myocardium.. Gating at rest reveals normal systolic wall motion with ejection fraction at 59%. The findings are consistent with likely normal myocardial perfusion. NM/NM saranya perf SPECT rest & str Impression: 1. Myocardial perfusion imaging study shows likely normal myocardial perfusion 2. Gated LVEF is 59% 3. Transient ischemic dilatation not present EKG is nondiagnostic for ischemia
--- NOTE | 2022-03-25 10:13 | CA_ITS ---
Acquisition Time: 2022-03-25 10:22:03 Total Exercise Time: 00:02:00 Test Indications: AFLUTTER Medications: Protocol: LEXISCAN Max HR: 086 BPM 59% of Pred: 144 BPM Max BP: 096/052 mmHG Max Work Load: 1.0 METS Pharmacological stress test with Lexiscan injection while sitting and kicking her legs, without anginal symptoms, with isolated PVCs, with normotensive response to injection, without EKG changes meeting criteria for ischemia. Nuclear images pending. Test reviewed with Dr Stone Referred By: Cooper Irizarry Overread By: LUISANA NOBLES
== END ==
LOC: HO.CARD 10:08
PROVIDERS: Visit Provider Internal Medicine
DX: I25.10 Atherosclerotic heart disease of native coronary artery without angina pectoris (principal); I48.92 Unspecified atrial flutter
CPT/HCPCS: 78452; 93017; A9500; J0280; J2785

== ENCOUNTER → 2022-03-25 12:20 | Outpatient (REF) | payer MEDICARE, SELFPAY | LOC: HO.CARD 12:20 | PROVIDERS: Visit Provider Internal Medicine | DX: Z13.89 Encounter for screening for other disorder (principal) ==

== ENCOUNTER → 2022-04-28 12:52 | Outpatient (BNVA) | payer MEDICARE, SELFPAY | PROVIDERS: PCP Internal Medicine; Referring Provider Internal Medicine; Visit Provider Internal Medicine | DX: Z01.810 Encounter for preprocedural cardiovascular examination (principal); I48.92 Unspecified atrial flutter; I25.10 Atherosclerotic heart disease of native coronary artery without angina pectoris | CPT/HCPCS: 99212 ==

== ENCOUNTER → 2022-05-05 14:55 | Outpatient (REF) | payer MEDICARE, SELFPAY ==
--- NOTE | 2022-05-05 14:59 | HM_ITS ---
Conclusion: 1. Patient was monitored for total period of 1 day and 17 hours with artifactual data 52% of the time 2. Baseline with atrial fibrillation/flutter with average heart of 52 beats per minute 3. Frequent slow ventricular response to atrial flutter/fibrillation with lowest heart rate of 38 beats per minute with heart rate below 60 beats per minute 62% of the time 4. Total of 641 PVCs accounting for 1% total beats account for occasional PVCs 5. No patient reported markers. MTDD
== END ==
LOC: HO.CARD 14:55
PROVIDERS: Visit Provider Internal Medicine
DX: I48.92 Unspecified atrial flutter (principal)
CPT/HCPCS: 93242

== ENCOUNTER 2022-06-28 13:35 | Inpatient (IN) | payer MEDICARE, SELFPAY ==
[2022-06-28] VITALS (14 sets, daily range): BP systolic 58–125; BP diastolic 32–76; PULSE 70–101; RESP 18–30; TEMP 34.9–37.7; O2SAT 90–97; BMI 27.8
--- NOTE | 2022-06-28 | ECG_ITS ---
Test Reason : CP Blood Pressure : / mmHG Vent. Rate : 097 BPM Atrial Rate : 300 BPM P-R Int : 000 ms QRS Dur : 082 ms QT Int : 340 ms P-R-T Axes : 252 048 058 degrees QTc Int : 431 ms Atrial flutter with 3:1 A-V conduction Anteroseptal infarct (cited on or before 01-FEB-2022) Lateral injury pattern ACUTE [place] / STEMI Abnormal ECG When compared with ECG of 28-JUN-2022 14:05, Anterolateral ST elevations present Referred By: Raheel Tobias Electronically Signed By:Howie Steele
--- NOTE | ~2022-06-28 | XR_ITS ---
EXAMINATION: XR CHEST CLINICAL INFORMATION: OG tube placement COMPARISON: 06/28/2022 TECHNIQUE: Frontal view of the chest was obtained. FINDINGS: Endotracheal tube terminates 3.5 cm above the keshia. Enteric tube terminates in the stomach with the side-port near the gastroesophageal junction. The lungs are well expanded. Mild patchy opacities at the left mid to lower lung peripherally are again noted. No pleural effusion or pneumothorax. The cardiomediastinal silhouette is unchanged, with a calcified aorta. XR/XR chest 1V IMPRESSION: 1. Endotracheal tube terminates 3.5 cm above the keshia. 2. Enteric tube terminates in the stomach with the side-port near the gastroesophageal junction. Consider advancement. 3. Patchy peripheral left mid to lower lung opacities are again noted.
--- NOTE | ~2022-06-28 | XR_ITS ---
EXAMINATION: XR ABDOMEN KUB CLINICAL INDICATION: Nausea and abdominal bloating COMPARISON: CT scan of June 28, 2022 TECHNIQUE: AP view of the abdomen. FINDINGS: There are gaseous distended loops of small bowel present measuring up to 5 cm in diameter. No definite secondary signs of free air identified. No evidence of small bowel wall thickening. Stool and gas is seen within nondilated colon. The appearances of possible small bowel obstruction or ileus. Calcified Uterine fibroids are present. There is scoliosis of the lumbar spine convex right with multilevel degenerative change. Patient status post left hip total arthroplasty. There is degenerative change of the right hip present. Status post cholecystectomy. XR/XR KUB IMPRESSION: Distended loops of small bowel consistent with small bowel obstruction or ileus.
--- NOTE | ~2022-06-28 | IR_ITS ---
EXAMINATION: IR FLUOROSCOPY-GUIDED CONVERSION OF TEMPORARY DIALYSIS CATHETER TO RIGHT PERMACATH CLINICAL INFORMATION: Needs permanent long-term dialysis. Temporary dialysis was inserted outside radiology department. COMPARISON: None. TECHNIQUE: Following explaining fluoroscopy-guided conversion of temporary dialysis catheter to a tunneled catheter procedure, benefits and risks, a written consent was obtained from the patient. Patient was placed supine on the angiography table and area around the right neck and right anterior chest wall was cleaned and draped in usual sterile manner. 1% lidocaine was inserted along the anterior chest wall approximately 1 gauze length from the right neck incision. A small skin incision was performed. 1% lidocaine was then administered deep to the subcutaneous tissue from the right anterior chest wall through the right neck incision. A blunt tunneler attached to the permacatheter was then tunneled blindly from the right anterior chest wall incision to the right neck incision. The tunneler with the catheter were pulled through the neck incision. The existent temporary dialysis catheter ports were flushed and aspirated making sure there was patency. A 0.035 J-wire was then advanced through one of the ports into the IVC under fluoroscopy monitoring and making sure there was no atrial fibrillation. The sutures were removed and the temporary dialysis catheter was removed. A 15 Finnish dilator with sheath was then inserted over the guidewire into the SVC. The guidewire and the dilator were removed. Permacatheter with tunneler was then inserted through the peel-away sheath into the SVC. The peel-away sheath was removed as the catheter was held in position. The tip of the catheter lies in the SVC with a slight kink at the neck incision. The catheter was then manipulated and the kink was removed. Both ports of the catheter were flushed with heparinized saline. The catheter was anchored to the right anterior chest wall with 3-0 nonabsorbable nylon sutures. The right neck incision was sutured with a single 3-0 absorbable suture. A simple dressing was applied at the puncture site. Patient tolerated the procedure extremely well. Conscious sedation was administered during the exam and patient monitored for 25 minutes during the exam by IR radiologist and nurse. FINDINGS: Both ports of the temporary dialysis catheter were patent. Successful exchange of temporary dialysis catheter with a tunneled permacatheter was performed without immediate complications. The catheter is 19 cm long and 14.5 Finnish. IR/IR cvc replace central tunnel IMPRESSION: Successful conversion of right temporary dialysis catheter with a tunneled right permacatheter. The catheter tip lies within the [id number] SVC and is ready for use. Fluoroscopy Time: 0.7 minutes. Dose Area Product: 127 cGy-cm2. Sedation Time: 45 minutes.
--- NOTE | ~2022-06-28 | XR_ITS ---
EXAMINATION: XR CHEST CLINICAL INFORMATION: Shortness of breath, Rales COMPARISON: X-ray 07/02/2022 TECHNIQUE: Frontal view of the chest was obtained. FINDINGS: Rotated positioning. Monitoring leads overlie the chest. Right IJ central venous catheter, tip over the proximal right atrium, similar to previous. There is central vascular prominence. There is increased bronchovascular markings in bilateral lungs, more prominent from previous. No dense consolidation. No significant pleural effusion is seen. No pneumothorax. XR/XR chest 1V IMPRESSION: Central vascular prominence. Increased bronchovascular markings in bilateral lungs, more prominent as compared to previous. This may reflect interstitial pulmonary edema, or could reflect infectious/inflammatory process. No dense consolidation is seen. Suggest follow-up imaging for reassessment.
--- NOTE | ~2022-06-28 | XR_ITS ---
EXAMINATION: XR CHEST CLINICAL INFORMATION: Chest pain COMPARISON: Chest x-ray 06/29/2022 TECHNIQUE: Frontal view of the chest was obtained. FINDINGS: Interval extubation and removal of NG tube. Right IJ central venous catheter tip projects over the proximal right atrium, unchanged. Lungs are mildly hypoinflated. Streaky linear opacities in the left mid to lower lung and patchy opacity at the left lung base likely atelectasis, similar to prior. No new focal airspace opacity. No pleural effusion or pneumothorax visualized. Unchanged cardiomediastinal silhouette. No cardiomegaly. Slight prominence of the central pulmonary vascular markings. No evidence of pulmonary edema. No acute osseous injury. Couple surgical clips project in the right upper quadrant. XR/XR chest 1V IMPRESSION: 1. Interval extubation and removal of NG tube. 2. Low lung volumes with probable mild left basilar atelectasis. 3. No acute pulmonary process. 4. No evidence of pulmonary edema or pleural effusions.
--- NOTE | ~2022-06-28 | CT_ITS ---
EXAMINATION: CT ABDOMEN AND PELVIS WITHOUT CONTRAST CLINICAL INFORMATION: Continued abdominal pain and nausea COMPARISON: CT abdomen and pelvis 06/28/2022 TECHNIQUE: Multidetector volumetric imaging was performed from the superior aspect of the liver through the pubic symphysis. Sagittal and coronal reformatted images were obtained on the technologist's workstation. This CT examination was performed using dose optimization techniques as appropriate, variously including the following: *Automated exposure control *Adjustment of mA and/or kV according to patient size (this includes techniques or standardized protocols for targeted exams where dose is matched to indication/reason for exam; i.e. extremities or head) *Use of iterative reconstruction technique DLP: 886 mGy-cm FINDINGS: LUNG BASES: New small left pleural effusion. Improved lingular atelectasis or consolidation with mild residual. Mild dependent left basilar opacity likely mild passive atelectasis. Some small patchy opacities in the right middle and lower lobes are noted in addition to mild atelectasis. Tip of a venous catheter terminates in the proximal right atrium. Coronary artery vascular calcifications noted. LIVER, GALLBLADDER, AND BILIARY TREE: Small subcentimeter hypodensity in segment 8 on series 3-17, too small to characterize likely a tiny cyst. No other liver lesion. No biliary ductal dilation. Status post cholecystectomy. PANCREAS: Unremarkable. SPLEEN: Unremarkable. ADRENAL GLANDS: Unremarkable. KIDNEYS AND URETERS: No hydronephrosis or radiodense urinary tract calculi. Redemonstrated 1.9 cm left lower pole simple appearing renal cyst. Similar smaller finding in the left upper pole. Cluster of thinly septated cyst with mild thin septal calcifications in the right midpole are unchanged. No perinephric fluid collection. BLADDER: Grossly unremarkable allowing for streak artifact from the patient's left hip prosthesis. GASTROINTESTINAL TRACT: Mild descending and proximal sigmoid diverticulosis. No evidence of acute diverticulitis. There is a relatively small overall colonic stool burden with small moderate amount of formed stool mildly distending the rectum. No dilated bowel loops. Gaseous distention of the transverse colon. Fecalization of contents of distal small bowel loops in the right lower quadrant/pelvis suggesting some stasis. Appendix not visualized. No inflammatory change seen at the cecal base. No ascites or free air. Mild presacral edema. ABDOMINAL WALL: Tiny fat-containing umbilical hernia. LYMPH NODES: No lymphadenopathy. VASCULAR: Normal caliber abdominal aorta. Relatively extensive atherosclerotic vascular calcifications including at the origins of the celiac and SMA as well as the proximal SMA. PELVIC VISCERA: Calcified uterine fibroids largest on the right side measuring up to 5.5 cm in approximate size. Small 2.6 cm low-density benign-appearing left adnexal cyst, unchanged. OSSEOUS STRUCTURES: No acute fracture or suspicious osseous lesion. Unchanged mild superior endplate compression deformity of T12. Moderate multilevel degenerative disc disease most advanced at L2-L3. CT/CT abdomen pelvis wo IV con IMPRESSION: 1. No acute intra-abdominal process identified. 2. No evidence of bowel obstruction. Fecalization of contents of distal small bowel loops in the right lower quadrant/pelvis suggesting some stasis. 3. Moderate amount of formed stool in the rectum. 4. New small left pleural effusion. Airspace consolidation in the left upper lobe/lingula has improved. There is some mild patchy opacity in the right middle and right lower lobe, presumably representing inflammatory/infectious etiology 5. Additional chronic findings, as described.
--- NOTE | ~2022-06-28 | XR_ITS ---
EXAMINATION: XR CHEST CLINICAL INFORMATION: Endotracheal tube and CVC placement COMPARISON: Chest x-ray 02/01/2022 TECHNIQUE: Frontal view of the chest was obtained. FINDINGS: Tip of an endotracheal tube terminates approximately 4.2 cm above the keshia. A right IJ central venous catheter tip projects over the right atrium. Patchy airspace opacities in the periphery of the left mid and lower lung and medial left lung base. Some streaky increased reticular markings in the right mid lower lung as well. Mildly increased reticular/vascular markings bilaterally. No pneumothorax. No appreciable pleural effusion. The cardiomediastinal silhouette is within normal limits. No evidence of overt pulmonary edema. No acute osseous injury. Cholecystectomy clips project in the right upper quadrant. XR/XR chest 1V IMPRESSION: 1. Endotracheal tube tip terminates approximately 4.2 cm above the keshia. 2. Right IJ central venous catheter tip projects over the right atrium. 3. No pneumothorax. 4. Patchy bilateral airspace opacities, left greater than right, suspicious for pneumonia.
--- NOTE | ~2022-06-28 | XR_ITS ---
EXAMINATION: XR HIP, RIGHT CLINICAL INFORMATION: Fall. Hip pain. COMPARISON: Pelvis and right hip 09/04/2020 TECHNIQUE: Frontal view of pelvis. Two views of the right hip. FINDINGS: No acute displaced fracture of the hip. There is moderate degenerative joint disease of the right hip with joint narrowing marginal bone spurs. Status post left hip replacement. Calcified fibroids in the pelvis. Solorzano catheter present. Degenerative spondylosis lower lumbar spine. Vascular calcification of femoral arteries. XR/XR hip RT w PEL1V IMPRESSION: 1. No acute displaced fracture of the hip. If the pain persists consider CT for follow-up. 2. 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
--- NOTE | ~2022-06-28 | CT_ITS ---
EXAMINATION: CT HEAD WITHOUT CONTRAST CT CERVICAL SPINE WITHOUT CONTRAST CLINICAL INFORMATION: Fall. COMPARISON: None. TECHNIQUE: Imaging was performed from the skull base to vertex without intravenous administration of contrast. In addition, helical noncontrast CT imaging was acquired through the cervical spine and source images were reviewed along with axial reconstructions and sagittal and coronal MPRs. [This CT examination was performed using dose optimization techniques as appropriate, variously including the following: *Automated exposure control *Adjustment of mA and/or kV according to patient size (this includes techniques or standardized protocols for targeted exams where dose is matched to indication/reason for exam; i.e. extremities or head) *Use of iterative reconstruction technique] DLP: 10.25+672.35+367.23 mGy-cm FINDINGS: HEAD: No intracranial mass, hemorrhage, or midline shift is visualized. There is generalized global volume loss. There is moderate prominence of the ventricles and the sulci . There is mild hypodensity of the periventricular white matter due to chronic small vessel ischemic disease. Stable focal hypodensity in the right frontal periventricular white matter unchanged since prior study likely due to old infarct. There are vascular calcifications of the internal carotid arteries bilaterally. . No extra-axial collections are identified. The paranasal sinuses and mastoid air cells are well aerated. CERVICAL SPINE: There is no evidence of acute cervical spine fracture. Vertebral bodies remain normal in height. Cervical vertebrae have normal alignment. There is multilevel degenerative spondylosis of the cervical spine with disc height narrowing and endplate spurs and facet joint arthrosis No pre- or paravertebral soft tissue abnormality is identified. There are vascular calcification of the carotid arteries bilaterally. Limited assessment of the lung apices is unremarkable. CT/CT cervical spine wo IV con IMPRESSION: 1. No acute intracranial pathology. 2. No CT evidence of acute cervical spine fracture or traumatic subluxation
--- NOTE | ~2022-06-28 | NM_ITS ---
Lexiscan Myocardial perfusion study Indication: Coronary artery disease Technique: The patient was brought in for a Lexiscan perfusion study on 07/06/2022 and was injected 0.4 mg of Lexiscan intravenously. Within a minute of this injection 25 mCi of sestamibi was given intravenously. Images were obtained using the SPECT gamma camera interlaced with the gating device. Images were obtained in supine position. Resting perfusion study was performed on 07/05/2022. Patient was administered 25 mCi of sestamibi intravenously at rest. Images were then obtained in supine position. Total DLP 98mGy-cm. Images were processed with the software and compared side to side in short axis, horizontal long axis and vertical long axis views. Findings: Raw acquisition reviewed. The stress perfusion study showed diminished tracer uptake in the mid to distal part of inferolateral wall. No significant change with CT attenuation correction. The gated study shows normal LV systolic function with calculated LVEF of 59%. LV cavity is normal in size. Reduced wall thickening and contractility in the above area. Resting study shows diminished tracer uptake in the mid to distal part of inferolateral wall, but improved compared to stress acquisition. Gating at rest reveals hypokinesis in the above area with LVEF 65%. The findings are consistent with mid to distal inferolateral defect with reversible/fixed components but mostly reversible. NM/NM saranya perf SPECT rest & str Impression: 1. Myocardial perfusion imaging study shows mixed ischemia/infarct pattern in the mid to distal inferolateral wall. 2. Gated LVEF is 59% during stress and 65% during rest. 3. Transient ischemic dilatation not present. EKG component of the test reported separately.
--- NOTE | ~2022-06-28 | CT_ITS ---
EXAMINATION: CT CHEST, ABDOMEN AND PELVIS WITHOUT CONTRAST CLINICAL INFORMATION: Trauma. COMPARISON: Chest x-ray 02/01/2022 TECHNIQUE: Multidetector volumetric CT imaging of the chest, abdomen and pelvis was obtained without oral or intravenous contrast. Coronal and sagittal reformatted images are performed at CT scanner [This CT examination was performed using dose optimization techniques as appropriate, variously including the following: *Automated exposure control *Adjustment of mA and/or kV according to patient size (this includes techniques or standardized protocols for targeted exams where dose is matched to indication/reason for exam; i.e. extremities or head) *Use of iterative reconstruction technique] DLP: 7.31+7.31+415.54+963.6 mGy-cm. FINDINGS: CT CHEST: Lungs: Focal dense consolidation with air bronchograms in the posterior left upper lobe. This extends into the lingula. There is mild bronchial wall thickening crowding of the bronchovascular markings due to atelectasis at the dependent lung bases bilaterally. Mediastinum: There is no mediastinal mass or significant lymphadenopathy. Heart size is prominent. There are vascular calcifications of aorta. There is no aneurysm of aorta. Pleura: There is no pleural effusion. No pleural mass or thickening. Axilla: No lymphadenopathy. CT ABDOMEN AND PELVIS: Liver, Gallbladder and Biliary Tree: The liver is normal in size, shape, and attenuation. No focal hepatic lesion or biliary ductal dilatation is present. Status post cholecystectomy Pancreas: No acute change of the pancreas. No mass. No pancreatic duct dilatation. Spleen: Spleen normal in size and contour. No focal lesion. Adrenal Glands: Adrenal glands are normal in size. No focal mass. Kidneys and Ureters: Multiple clustered cysts at the midpole of the right kidney. There are small calcification of the wall of several cysts. 2 cm cortical cyst lower pole of left kidney. Fullness of the right renal pelvis without calculus. No hydroureter. No ureteral stone. No stone or hydronephrosis of left kidney. Vascular calcifications of the left renal hilum. No follow-up imaging is recommended for simple renal cyst. Bladder: Unremarkable. Gastrointestinal Tract: The small and large bowel are unremarkable. The appendix is nonvisualized. Mesentery: No focal inflammation. No free fluid. No free air. Abdominal Wall: No significant hernia is appreciated. Lymph Nodes: Normal. Vascular: Vascular calcifications throughout the abdomen and the pelvis. No aneurysm of aorta. Pelvic Viscera: Uterus is anteverted. Calcified fibroids within uterus. Largest at the fundus on the left measuring about 5.7 cm. No adnexal abnormality. Osseous Structures: No acute osseous abnormality. Status post left hip replacement. Marked degenerative joint narrowing and bone spur of the right hip joint. Multilevel degenerative spondylosis of the spine. CT/CT abdomen pelvis wo IV con IMPRESSION: 1. Left upper lobe pneumonia. 2. No acute abnormality the abdomen or pelvis.
--- NOTE | 2022-06-28 13:58 | ECG_ITS ---
Test Reason : FALL Blood Pressure : / mmHG Vent. Rate : 070 BPM Atrial Rate : 280 BPM P-R Int : 000 ms QRS Dur : 078 ms QT Int : 452 ms P-R-T Axes : 090 013 -50 degrees QTc Int : 488 ms Atrial flutter with 4:1 A-V conduction Anteroseptal infarct (cited on or before 01-FEB-2022) ST & T wave abnormality, consider lateral ischemia Abnormal ECG When compared with ECG of 01-FEB-2022 16:07, Significant changes have occurred Referred By: Jona Low Electronically Signed By:Howie Steele
--- NOTE | 2022-06-28 13:59 | ED_ITS ---
HPI - Fall General Chief Complaint: Fall Stated Complaint: FALL T-1,ON FLOOR 24 HRS,+COLLAR Time Seen by Provider: 06/28/22 13:50 Source: patient Mode of arrival: EMS Limitations: no limitations History of Present Illness HPI Narrative: 77-year-old female who presents emergency department for evaluation of a fall t hat occurred 24 hours prior. The patient states she went to the bathroom and when she got up she states that she had a gentle fall to the bathroom floor. She was unable to get up. She states she tried to crawled to a phone but was unable to reach it. She has been lying on the floor for 24 hours. She was found by operations and maintenance manager approximately 1 hour prior to coming to the emergency department. Patient is complaining of pain over her entire body. She states she is feeling very weak. She denied being ill prior to falling. The patient is on Eliquis for atrial fibrillation. I did discuss with the paramedics how they found the patient. Apparently the patient fell in the bathroom and crawled into the living room. She was found in the living room lying on her left side between a table and leaning against a wall. She was incontinent urine and stool. Paramedics suspect that she crawled from the bathroom to the living room. Related Data Home Medications Medication Instructions Recorded Confirmed clonazepam 1 mg tablet (Klonopin) 1 mg PO TID 07/16/20 04/28/22 fenofibrate 160 mg tablet 160 mg PO DAILY 07/16/20 04/28/22 sertraline 50 mg tablet (Zoloft) 50 mg PO DAILY 07/16/20 04/28/22 sitagliptin phosphate 100 mg 100 mg PO DAILY 07/16/20 04/28/22 tablet (Januvia) hydroxyzine HCl 25 mg tablet 25 mg PO BID 03/10/22 04/28/22 Previous Rx's Medication Instructions Recorded lancets 28 gauge (FreeStyle #3 boxes 10/23/20 Lancets) cholecalciferol (vitamin D3) 25 25 mcg PO DAILY #90 caps 07/01/21 mcg (1,000 unit) tablet cyanocobalamin (vitamin B-12) 1,000 mcg PO DAILY 90 days #90 caps 07/15/21 1,000 mcg tablet (Vitamin B-12) folic acid 1 mg tablet 1 mg PO DAILY #90 tabs 07/29/21 metformin 1,000 mg tablet 1,000 mg PO BID #180 caps 02/20/22 lisinopril 40 mg tablet 40 mg PO DAILY 30 days #30 caps 03/01/22 diclofenac sodium 1 % topical gel 4 g topical QID #100 grams 04/19/22 (Voltaren Arthritis Pain) metoprolol succinate 25 mg 25 mg PO DAILY #30 tabs 04/19/22 tablet,extended release 24 hr apixaban 5 mg tablet (Eliquis) 5 mg PO BID #60 tabs 05/01/22 blood sugar diagnostic (FreeStyle 1 strip miscellaneous DAILY 90 05/25/22 Lite Strips) days #100 caps simvastatin 40 mg tablet 40 mg PO DAILY 90 days #90 tabs 06/06/22 Allergies Allergy/AdvReac Type Severity Reaction Status Date / Time No Known Allergies Allergy Verified 04/19/22 10:33 [No Known Allergies*] Review of Systems Review of Systems: Yes all other systems are reviewed and are negative PMFSH Past Medical History Medical History Hypercholesterolemia Hypertension Insomnia Obesity (BMI 30.0-34.9) Osteoarthrosis Overweight (BMI 25.0-29.9) Primary osteoarthritis of left knee Second degree AV block Tobacco abuse Type 2 diabetes mellitus with hyperglycemia Surgical History H/O breast reconstruction History of cholecystectomy History of hip replacement History of tonsillectomy Family History Family History Father Cancer Mother Medical history unknown Brother Liver cancer Sister Hypertension COPD (chronic obstructive pulmonary disease) Social History Social History Housing: Apartment Alcohol intake: former Patient Tobacco Use Status: Current someday Tobacco user Tobacco use type: Cigarette Cigarettes Per Day: 2 Smoked in Last 30 Days: Yes e-Cigarette/Vaping Use: Never Used Second Hand Smoke Exposure: No Advance Directives: No Advance Directives Information Provided: Yes service: No Current occupational status: retired Current occupation: Right Handed Cognitive needs: No Hearing needs: No Vision needs: Yes Physical Exam Vital Signs: Vital Signs: Last Vital Signs Temp 98.0 F 06/28/22 13:49 Pulse 92 06/28/22 14:29 Resp 23 H 06/28/22 14:29 BP 102/48 L 06/28/22 14:29 Pulse Ox 92 06/28/22 14:29 O2 Del Method 06/28/22 14:29 O2 Flow Rate 3 06/28/22 14:29 BMI result Body Mass Index 27.8 Vital signs reviewed, patient's O2 saturation low 91% on room air, BP low 101/57. General: Patient is awake but has a very soft, comprehensible voice, she has a strong ketotic odor to her breath most likely caused by starvation ketosis HEENT: Head is normal cephalic, no obvious hematomas or tenderness palpation of her scalp, pupils were equal round reactive light, sclera contact however normal, mouth revealed very dry mucous membranes, strong ketotic odor to her breath, no erythema or exudates Neck: Diffuse tenderness Chest: Diffusely tender, diffuse bilateral ecchymosis Heart: Regular rate rhythm, normal S1-S2, no murmurs rubs gallops Abdomen: Diffusely tender, obese, normoactive bowel sounds, no rebound Back: Patient has diffuse ecchymosis to her back with no point tenderness Extremities: Patient is weak but can move all her extremities Neurologic exam: Oriented to person and place, able to give history is of events that occurred to her prior to coming to emergency department, cranial nerves are intact strength is diffusely weak but not localizing Medications Administered Discontinued Medications Generic Name Dose Route Start Last Admin Trade Name Freq PRN Reason Stop Dose Admin Sodium Chloride 1,000 mls @ 999 mls/hr 06/28/22 13:55 06/28/22 14:35 Ns IV 06/28/22 14:55 999 mls/hr .Q1H1M STA Administration Sodium Chloride 1,000 mls @ 999 mls/hr 06/28/22 13:55 06/28/22 14:35 Ns IV 06/28/22 14:55 999 mls/hr .Q1H1M STA Administration Medical Decision Making Medical Decision Making MDM Narrative: 77-year-old female who presents emergency department for evaluation of fall in her bathroom that occurred 24 hours prior, the patient has not been able to get offer floor and was found on the floor today by painter sign maintenance approximately 1 hour prior to coming to the emergency department. Patient appears to be very weak and extremely dehydrated. She has a strong ketotic odor to her breath which I believe is more consistent with starvation ketosis from not eating and drinking for the past 24 hours. Patient's point of care glucose was elevated above 300. I ordered CBC, CMP, CPK, lipase, PT/INR, PTT, troponin, lactic acid, urinalysis, blood cultures x2, type and screen. I also ordered CT scan of the head, cervical spine, chest, abdomen and pelvis. I will also obtain a pelvic x- ray to rule out fracture. The patient is on Eliquis and concerned that she may have retroperitoneal bleed from her fall is the cause of her abdominal pain. Patient will be treated with normal saline IV x2 L. 1527: My interpretation patient's laboratory evaluations are as follows: WBC is pending but the patient is 27% bands. INR elevated 1.8. Sodium elevated 149, chloride elevated 112, bicarb low 9, anion gap elevated 33, BUN elevated 62, creatinine elevated 3.64. Glucose elevated 348. Lactic acid elevated 2.7. T bili elevated 1.1. AST and ALT elevated 412 and 180. CK elevated 32,574, troponin greater than 36,000. The patient's x-rays are pending however on my interpretation of the patient's CT scan of the chest she does have a left-sided pneumonia, most likely an aspiration pneumonia.The patient was ordered to get Zosyn 4.5 g IV. The patient's renal failure is most likely secondary rhabdomyolysis and being volume depleted. Her elevated anion gap , low bicarb and elevated take acid are most likely caused by starvation ketosis and not sepsis. Patient has received 2 L of normal saline and now is receiving a 3rd L of lactated Ringer's. I did discuss the patient's presentation with the covering stonework tracer, Dr. Yoo . He is concerned about the patient's renal failure, rhabdomyolysis and is concerned also about possible compartment syndrome. He will evaluate the patient in the emergency department. I did order a Solorzano catheterization so that we can track patient's urine output. 1544: Patient was seen by Dr. Yoo. After our discussion, he recommended that the patient get D5W with 3 amps of bicarb at 200 cc an hour this was ordered by me. Patient will be admitted to the intensive care unit for further treatment Differential Diagnosis Differential includes was not limited to skull fracture, cerebral bleed, cervical fracture, rib fractures, retroperitoneal bleed, hip fracture, anemia secondary to bleed, DKA, starvation ketosis Consult Healthcare Provider I discussed this patient with the stonework tracer, Dr. Yoo I also discuss this patient with the drill runner helper transported the patient to the emergency department for more details. Lab Data [facility] Lab Attestation statement: I reviewed the patient's lab results. Please see [facility] for discussion of results 06/28/22 13:59 06/28/22 13:59 Labs: Lab Results 06/28/22 06/28/22 06/28/22 Range/Units 13:50 13:59 13:59 RBC 4.69 (4.20-5.50) X10*6/uL Hgb 13.4 (12.0-16.0) g/dl Hct 41.7 (37.0-47.0) % MCV 88.9 (80.0-98.0) fL MCH 28.6 (27.0-33.0) pg MCHC 32.1 (31.0-35.0) g/dl RDW 14.0 (11.0-16.0) % Plt Count 407 H D (160-400) X10*3/uL MPV 11.1 (9.4-12.3) fL Immature Gran % (Auto) Cancelled Neut % (Auto) Cancelled Lymph % (Auto) Cancelled [place] % (Auto) Cancelled Eos % (Auto) Cancelled Baso % (Auto) Cancelled Lymph # (Auto) Cancelled [place] # (Auto) Cancelled Eos # (Auto) Cancelled Baso # (Auto) Cancelled Abs Immat Gran (auto) Cancelled Absolute Neuts (auto) Cancelled Absolute Nucleated RBC 0.000 (0.0-0.012) X10*3/uL Nucleated RBC % (auto) 0.0 (0.0-0.2) /100WBC Neutrophils % (Manual) 46 (45-73) % Band Neutrophils % 27 H (3-5) % Lymphocytes % (Manual) 18 L (20-40) % Monocytes % (Manual) 7 (2-11) % Metamyelocytes % 2 % Toxic Vacuolation PRESENT Platelet Estimate SLIGHTLY INCREASED (NORMAL) Plt Morphology Comment NORMAL RBC Morphology NOTED Ovalocytes 1+ (5-14) /OIF Ian Cells 3+ (>5) /OIF Acanthocytes (Spur) 1+ (0-2) /OIF PT 20.6 H (10.0-13.1) SEC INR 1.8 H (0.9-1.1) APTT 35.7 (26.0-36.4) SEC Sodium (135-145) mmol/L Potassium (3.3-5.1) mmol/L Chloride (96-108) mmol/L Carbon Dioxide (22-29) mmol/L Anion Gap (12-20) BUN (9-16) mg/dL Creatinine (0.5-1.4) mg/dL Estim Creat Clear Calc Estimated GFR POC Glucose 312 H (60-115) mg/dL Random Glucose (60-115) mg/dL Lactic Acid (0.5-2.0) mmol/L Calcium (8.4-10.2) mg/dL Total Bilirubin (0.0-1.0) mg/dL AST (5-31) U/L ALT (0-31) U/L Alkaline Phosphatase (39-117) U/L Troponin I High Sens (<3.5-17.0) ng/L Total Protein (6.5-8.0) g/dL Albumin (3.5-5.0) g/dL Lipase (8-78) U/L Blood Type Antibody Screen 06/28/22 06/28/22 06/28/22 Range/Units 13:59 13:59 13:59 RBC (4.20-5.50) X10*6/uL Hgb (12.0-16.0) g/dl Hct (37.0-47.0) % MCV (80.0-98.0) fL MCH (27.0-33.0) pg MCHC (31.0-35.0) g/dl RDW (11.0-16.0) % Plt Count (160-400) X10*3/uL MPV (9.4-12.3) fL Immature Gran % (Auto) Neut % (Auto) Lymph % (Auto) [place] % (Auto) Eos % (Auto) Baso % (Auto) Lymph # (Auto) [place] # (Auto) Eos # (Auto) Baso # (Auto) Abs Immat Gran (auto) Absolute Neuts (auto) Absolute Nucleated RBC (0.0-0.012) X10*3/uL Nucleated RBC % (auto) (0.0-0.2) /100WBC Neutrophils % (Manual) (45-73) % Band Neutrophils % (3-5) % Lymphocytes % (Manual) (20-40) % Monocytes % (Manual) (2-11) % Metamyelocytes % % Toxic Vacuolation Platelet Estimate (NORMAL) Plt Morphology Comment RBC Morphology Ovalocytes /OIF Ian Cells /OIF Acanthocytes (Spur) /OIF PT (10.0-13.1) SEC INR (0.9-1.1) APTT (26.0-36.4) SEC Sodium 149 H (135-145) mmol/L Potassium 4.9 (3.3-5.1) mmol/L Chloride 112 H (96-108) mmol/L Carbon Dioxide 9 L* D (22-29) mmol/L Anion Gap 33 H (12-20) BUN 62 H (9-16) mg/dL Creatinine 3.64 H (0.5-1.4) mg/dL Estim Creat Clear Calc 13.3 Estimated GFR 12 POC Glucose (60-115) mg/dL Random Glucose 348 H (60-115) mg/dL Lactic Acid 2.7 H* (0.5-2.0) mmol/L Calcium 9.3 (8.4-10.2) mg/dL Total Bilirubin 1.1 H (0.0-1.0) mg/dL AST 412 H (5-31) U/L ALT 180 H (0-31) U/L Alkaline Phosphatase 62 (39-117) U/L Troponin I High Sens > 3600.0 H* (<3.5-17.0) ng/L Total Protein 6.0 L (6.5-8.0) g/dL Albumin 3.6 (3.5-5.0) g/dL Lipase 9 (8-78) U/L Blood Type Antibody Screen 06/28/22 Range/Units 14:04 RBC (4.20-5.50) X10*6/uL Hgb (12.0-16.0) g/dl Hct (37.0-47.0) % MCV (80.0-98.0) fL MCH (27.0-33.0) pg MCHC (31.0-35.0) g/dl RDW (11.0-16.0) % Plt Count (160-400) X10*3/uL MPV (9.4-12.3) fL Immature Gran % (Auto) Neut % (Auto) Lymph % (Auto) [place] % (Auto) Eos % (Auto) Baso % (Auto) Lymph # (Auto) [place] # (Auto) Eos # (Auto) Baso # (Auto) Abs Immat Gran (auto) Absolute Neuts (auto) Absolute Nucleated RBC (0.0-0.012) X10*3/uL Nucleated RBC % (auto) (0.0-0.2) /100WBC Neutrophils % (Manual) (45-73) % Band Neutrophils % (3-5) % Lymphocytes % (Manual) (20-40) % Monocytes % (Manual) (2-11) % Metamyelocytes % % Toxic Vacuolation Platelet Estimate (NORMAL) Plt Morphology Comment RBC Morphology Ovalocytes /OIF [place] Cells /OIF Acanthocytes (Spur) /OIF PT (10.0-13.1) SEC INR (0.9-1.1) APTT (26.0-36.4) SEC Sodium (135-145) mmol/L Potassium (3.3-5.1) mmol/L Chloride (96-108) mmol/L Carbon Dioxide (22-29) mmol/L Anion Gap (12-20) BUN (9-16) mg/dL Creatinine (0.5-1.4) mg/dL Estim Creat Clear Calc Estimated GFR POC Glucose (60-115) mg/dL Random Glucose (60-115) mg/dL Lactic Acid (0.5-2.0) mmol/L Calcium (8.4-10.2) mg/dL Total Bilirubin (0.0-1.0) mg/dL AST (5-31) U/L ALT (0-31) U/L Alkaline Phosphatase (39-117) U/L Troponin I High Sens (<3.5-17.0) ng/L Total Protein (6.5-8.0) g/dL Albumin (3.5-5.0) g/dL Lipase (8-78) U/L Blood Type O Positive Antibody Screen NEGATIVE Independent Interpretation I performed an independent interpretation of an: EKG Interpretation: My independent interpretation of the patient's EKG done at 14:05: Atrial flutter with a 4-1 av conduction block with a ventricular rate of 70, normal QRS interval, prolonged QTC of 488 milliseconds, no ST segment elevation, no ST segment depression, no significant T-wave abnormalities Q-waves V1 through V3. Compared to EKG dated 02/01/2022 the Q-waves in V1 through V3 are old, atrial flutter is old-there are no acute changes. Radiology Impression Discussion of test interpretation with radiology: I have reviewed the radiologist's reading. Independent Historian Clinical information obtained from an independent historian. History obtained from or confirmed by: Other (I did get more information from the patient's daughter, Mitzi) Critical Care Time Critical Care Time Critical Care Time: Yes Total Critical Care Time: 80 Attestation: Critical Care: The patient was critically ill with a high probability of imminent or life threatening deterioration. I spent greater than 30 minutes of discontinuous time evaluating the patient,delivering critical care at the bedside, discussing and evaluating pertinent data with consultants. Critical care time does not include time spent performing separately billable procedures or teaching. Total time spent performing critical care was 80 minutes. Discharge Plan Discharge Prescriptions: No Action (DME) lancets [FreeStyle Lancets] 28 gauge misc See Rx Instructions .ROUTE .MEDSUPPLY Qty: 3 3RF Rx Instructions: As directed check BS TID cholecalciferol (vitamin D3) 25 mcg (1,000 unit) tablet 25 mcg PO DAILY Qty: 90 3RF cyanocobalamin (vitamin B-12) [Vitamin B-12] 1,000 mcg tablet 1,000 mcg PO DAILY 90 Days Qty: 90 2RF metformin 1,000 mg tablet 1,000 mg PO BID Qty: 180 2RF lisinopril 40 mg tablet 40 mg PO DAILY 30 Days Qty: 30 3RF Eliquis 5 mg tablet 5 mg PO BID Qty: 60 1RF FreeStyle Lite Strips Strip 1 strip miscellaneous DAILY 90 Days Qty: 100 3RF simvastatin 40 mg tablet 40 mg PO DAILY 90 Days Qty: 90 2RF sertraline [Zoloft] 50 mg tablet 50 mg PO DAILY clonazepam [Klonopin] 1 mg tablet 1 mg PO TID fenofibrate 160 mg tablet 160 mg PO DAILY Januvia 100 mg tablet 100 mg PO DAILY metoprolol succinate 25 mg tablet extended release 24 hr 25 mg PO DAILY Qty: 30 3RF diclofenac sodium [Voltaren Arthritis Pain] 1 % gel 4 g topical QID Qty: 100 4RF Rx Instructions: apply to single knee, ankle, foot; for foot includes sole/toes/top of foot folic acid 1 mg tablet 1 mg PO DAILY Qty: 90 3RF hydroxyzine HCl 25 mg tablet 25 mg PO BID
[2022-06-28 14:09] LABS: Glucose, Whole Blood 312 mg/dL (60-115)
[2022-06-28 14:23] LABS: Hematocrit 41.7 % (37.0-47.0); Hemoglobin 13.4 g/dl (12.0-16.0); Mean Corpuscular HGB Conc 32.1 g/dl (31.0-35.0); Mean Corpuscular Hemoglobin 28.6 pg (27.0-33.0); Mean Corpuscular Volume 88.9 fL (80.0-98.0); Mean Platelet Volume 11.1 fL (9.4-12.3); Platelet Count 407 X10*3/uL (160-400); Red Blood Count 4.69 X10*6/uL (4.20-5.50)
[2022-06-28 14:24] LABS: WBC ABN SCTR FOR CBC 1
[2022-06-28 14:29] LABS: INTERNATIONAL NORM RATIO 1.8 (0.9-1.1); Prothrombin Time 20.6 SEC (10.0-13.1)
[2022-06-28 14:32] LABS: Partial Thromboplastin Time 35.7 SEC (26.0-36.4)
[2022-06-28] MEDS: 0.9 % Sodium Chloride 1,000 ML 999 ML IV ×2 (14:35)
[2022-06-28 14:39] LABS: Alanine Aminotransferase 180 U/L (0-31); Albumin Level 3.6 g/dL (3.5-5.0); Alkaline Phosphatase 62 U/L (39-117); Aspartate Amino Transferase 412 U/L (5-31); Bilirubin Total 1.1 mg/dL (0.0-1.0); Blood Urea Nitrogen 62 mg/dL (9-16); Calcium 9.3 mg/dL (8.4-10.2); Creatinine Clr Calc Pharmacy 13.3; Estimated Glomerular Filt Rate 12; Glucose Random 348 mg/dL (60-115); Lipase 9 U/L (8-78)
--- NOTE | 2022-06-28 14:50 | PC.NURSE ---
patient a/ox3 . pearrla .heart rate irregular at 70-104 beats per minute . breathing even and labored . lungs clear throughout . skin dusky , bruising noted down left side of of hip , knee and foot . patient reports falling at 6am yesterday am after tripping on gown and being on ground at home since then no LOC . abdomen soft . positive bowel sounds in all four quadrants . patient to CT for images . patient on flight physician . normal saline started as ordered . patient remains in c-spin collar .till images return .labs have been set . patient and daughter aware of plan of care .
--- NOTE | 2022-06-28 14:51 | PC.NURSE ---
Crackles noted in upper airway .
[2022-06-28 14:53] LABS: Troponin-I High Sensitivity > 3600.0 ng/L (<3.5-17.0)
[2022-06-28 14:55] LABS: Anion Gap 33 (12-20); Carbon Dioxide 9 mmol/L (22-29); Chloride 112 mmol/L (96-108); Lactic Acid 2.7 mmol/L (0.5-2.0); Neutrophils Percent Manual 46 % (45-73); Potassium 4.9 mmol/L (3.3-5.1); Sodium 149 mmol/L (135-145)
[2022-06-28 14:57] LABS: Band Neutrophils Percent 27 % (3-5); Lymphocytes Percent Manual 18 % (20-40); Metamyelocytes Percent 2 %; Monocytes Percent Manual 7 % (2-11)
[2022-06-28 14:58] LABS: Platelet Estimate SLIGHTLY INCREASED (NORMAL); Platelet Morphology Comment NORMAL; RBC Morphology NOTED
[2022-06-28 14:59] LABS: Acanthocytes 1+ (0-2) /OIF; Burr Cells 3+ (>5) /OIF; Ovalocytes 1+ (5-14) /OIF; Toxic Vacuolation PRESENT
[2022-06-28] MEDS: Lactated Ringers 1,000 ML 999 ML IV (15:26)
[2022-06-28 15:40] LABS: Acetone, serum QL Moderate (Negative); Lymphocytes Absolute Manual 4.7 X10*3/uL (1.2-4.9); Metamyelocytes Absolute 0.5 X10*3/uL; Monocytes Absolute Manual 1.8 X10*3/uL (0.1-1.2); Neutrophils Absolute Manual 18.9 X10*3/uL (2.0-8.3); White Blood Count 25.9 X10*3/uL (4.8-10.8)
[2022-06-28 15:46] LABS: Influenza A PCR NEGATIVE (Negative); Influenza B PCR NEGATIVE (Negative); Resp Syncy Virus RNA Qual PCR NEGATIVE (Negative); SARS COV2 PCR INHOUSE NEGATIVE (Negative)
[2022-06-28] MEDS: Piperacillin Sodium/Tazobactam 4.5 GM in 0.9 % Sodium Chloride 100 ML IV (15:50)
[2022-06-28 16:01] LABS: VBG Base Excess -20.9 mmol/L; VBG HCO3 8 mmol/L (22-26); VBG pCO2 26 mmHg; VBG pH 7.06 (7.32-7.43); VBG pO2 51 mmHg
[2022-06-28 16:15] LABS: Reflex Lactate? Lactic Acid Added
--- NOTE | 2022-06-28 16:20 | PC.NURSE ---
Solorzano catheter placed , 200 ml dark armani urine out . patient tolerated well . U.A sent to lab . patient aware of plan of care .
[2022-06-28] MEDS: Sodium Bicarbonate 8.4% 50 MEQ/50 ML SYRINGE 100 MEQ IVPUSH (16:21)
[2022-06-28 16:22] LABS: Venous Blood Gas Refer to POC result
[2022-06-28 16:32] LABS: Appearance Urine Cloudy; Color Urine Dark Yellow; Glucose Urine UA >=1000 mg/dL (Negative); Leukocyte Esterase Urine Small (1+) (Negative); Nitrite Urine Negative (Negative); PH 5.5 (5.0-9.0); Specific Gravity - Urine >= 1.030 (1.005-1.025); UMIC TRIGGER UACC YES; Urine Blood Large (3+) (Negative); Urine Ketones 15 mg/dL (Negative); Urine Protein 300 (3+) mg/dL (Neg-Trace)
--- NOTE | 2022-06-28 16:43 | PC.NURSE ---
Patient to Xray for images . patient aware of plan of care .
[2022-06-28 16:51] LABS: Bacteria Urine None Seen (None Seen); Hyaline Casts Urine 0-2 /LPF (0-2); Other Crystals Urine Present; RBC Urine >20 /HPF (0-2); UACC Culture Trigger YES; WBC Urine 21-50 /HPF (0-5)
[2022-06-28 17:19] LABS: ~Lactic Acid-LAB USE ONLY 3.1 mmol/L (0.5-2.0)
[2022-06-28] MEDS: Sodium Bicarbonate 8.4% 150 MEQ in Dextrose 5 % 850 ML 200 MEQ IV ×2 (17:22→17:58)
[2022-06-28 18:06] LABS: ABG Base Excess -15.4 mmol/L; ABG HCO3 10 mmol/L (22-26); ABG pCO2 25 mmHg (32-45); ABG pH 7.21 (7.35-7.45); ABG pO2 73 mmHg (83-108)
--- NOTE | 2022-06-28 18:24 | PHA.MEDREC ---
Pharmacy Consult ? Medication Reconciliation Pharmacy has completed the medication reconciliation. Spoke with patient's daugther Mitzi who was able to confirm medications. She was unsure about sertraline and metformin both recently filled in [facility]. Delia Shukla, PharmD
--- NOTE | 2022-06-28 18:38 | PC.NURSE ---
RECEIVED REPORT FROM ER NURSE, PATIENT BROUGHT DOWN ON [employer]INFORMATICS ASSOCIATE. ADMISSION ASSESSMENT COMPLETED. PATIENT IN A-FLUTTER. WHEEZING NOTED TO LEFT LUNG PATIENT NOTED TO HAVE EXTENSIVE BRUISING AND REDNESS, PHOTOGRAPHS TAKEN AND DOCUMENTED. PATIENT DROWSY AND CONFUSED, SEE ASSESSMENT FOR FULL DETAILS. PATIENT CABRERA EMPTIED AND ACCOUNTED FOR. AFTER 1 HOUR NO URINE EMPTIED, BLADDER SCANNED FOR 289ML OF URINE. CABRERA FLUSHED WITH 10ML FLUSHED MD BEDSIDE FOR SCAN, INFORMED TO RESCAN BLADDER AT 1930. PATIENT BATHED, ORIENTED TO ROOM, AND INFORMED ON HEALTH STATUS.
[2022-06-28 18:41] LABS: Reflex Lactate? 2 Y
[2022-06-28 18:45] LABS: Glucose, Whole Blood 299 mg/dL (60-115)
[2022-06-28] MEDS: Insulin Lispro 100 UNIT/ML 3 ML VIAL SUBCUT ×2 (19:04→22:00)
[2022-06-28] MEDS: Heparin Sodium,Porcine 5,000 UNIT/ML VIAL 5000 UNIT SUBCUT (19:05)
--- NOTE | 2022-06-28 19:34 | P.HPCC_ITS ---
History of Present Illness Date of Service: 06/28/22 Attending physician on admission: Daryl Yoo Chief Complaint: Fall Patient is a 77-year-old female with a past medical history of diabetes mellitus, atrial flutter / atrial fibrillation ( on Eliquis), hypertension, CVA, coronary artery disease, hypercholesterolemia, and smoker who presented to the emergency room? after sustaining a fall. Patient reports fall over 24 hour before coming to the? emergency room where she lay on the floor for? prolonged periods of time on the left side.? She reported pain all over body, and felt very weak after the fall.?? On the emergency room,? patient was noted to be weak,? respiratory rate 30s, p ressure 101/57, satting 91% on room air.? ?Laboratory data? significant for WBC 25.9, platelets 407, serum sodium 149, chloride 112, serum bicarb 9, and anion gap 33, BUN 62, creatinine 3.64, serum o sm 352,? lactic acid 2.7, AST 412, [place] 180[place] [address], Trop sens >3600 Initial blood venous gas? 7.12/12/51/8 Imaging:? ?Head/ Cervical spine CT-? no acute findings ?Chest CT-? left lower pneumonia ?Abdominal CT:? no acute finding Xray of R Hip- No acute issues? ED course:? ?C-spine was cleared by ED physician ?Patient received Zosyn 4.5 g, 3 L fluid, 3 amps of bicarb IV push, and started on bicarb drip with 3 amp at 200 mL/ hr.? On arrival at ICU Patient alert and oriented x 3, slightly lethargic, but able to answer question appropriately, denied any chest pain, only reported pain on left hip and arm. Patient anuric. ? Repeat ABGs 7.21//73/10, BPs with MAP of 59-65. Renal consulted, spoke with Dr Ugalde, initially HD was not advised at this time , requested better perfusion with vasopressor support and further lab work.? Later, patient mentation worsened, minimally responding to painful stimuli,? required emergent intubation? for airway protection. Attending Dr Yoo, aware of the case,? He personally spoke to Renal, agreeable to start emergent hemodialysis. Dialysis catheter placed.? ?Patient also went into wide complex tachycardia? with a pulse. Previously the patient denies chest pain,? EKG did not show any acute finding.? Repeated? troponin and chemistries?? Review of Systems Constitutional: Constitutional: Denies anorexia, Denies chills, Denies fatigue, Denies headache(s) and Reports weakness ENT: Denies dizziness and Denies headache(s) Cardiovascular: Cardiovascular: Denies chest pain, Denies lightheadedness, Denies Loss of Consciousness and Denies dyspnea Respiratory: Respiratory: Denies cough and Denies dyspnea Genitourinary: Genitourinary: Reports urinary incontinence Musculoskeletal: Musculoskeletal: Denies muscle weakness and Denies numbness Integumentary/Breasts: Skin/Breast: Reports lesions and Reports erythema Comments: Extensive bruising on left Neurologic: Denies dizziness, Denies headache(s), Denies numbness and Reports weakness Endocrine: Endocrine: Denies fatigue PMFSH Past Medical History Medical History Hypercholesterolemia Hypertension Insomnia Obesity (BMI 30.0-34.9) Osteoarthrosis Overweight (BMI 25.0-29.9) Primary osteoarthritis of left knee Second degree AV block Tobacco abuse Type 2 diabetes mellitus with hyperglycemia Family History Family History Father Cancer Mother Medical history unknown Brother Liver cancer Sister Hypertension COPD (chronic obstructive pulmonary disease) Surgical History Surgical History H/O breast reconstruction History of cholecystectomy History of hip replacement History of tonsillectomy Social History Social History Household Members: Significant Other Housing: Apartment Do you presently have visiting nurse or other home services: No Alcohol intake: former Patient Tobacco Use Status: Former Tobacco user Tobacco use type: Cigarette Cigarettes Per Day: 2 Smoked in Last 30 Days: Yes e-Cigarette/Vaping Use: Never Used Second Hand Smoke Exposure: No Use of substances other than those prescribed or required for medical reasons: No Currently Displaying Signs/Symptoms of Drug Intoxication Withdrawal: No Have you been hit, kicked, punched, or otherwise hurt by someone within the past year? If so, by whom?: No Do you feel safe in your current relationship?: Yes Advance Directives: No Advance Directives Information Provided: Yes Do you have thoughts of harming others: None Do you have a plan to hurt others: No Plan Recently lost weight without trying: No Patient : No : No service: No Current occupational status: retired Current occupation: Right Handed Cognitive needs: No Hearing needs: No Vision needs: Yes Meds Allergies Allergy/AdvReac Type Severity Reaction Status Date / Time No Known Allergies Allergy Verified 04/19/22 10:33 [No Known Allergies*] Active Medications: Current Medications Heparin Sodium (Porcine) (Heparin Sodium,Porcine 5,000 Unit/Ml Vial) 5,000 unit SUBCUT Q8H [facility] Last Admin: 06/28/22 19:05 Dose: 5,000 unit Sodium Bicarbonate 150 meq/ (Dextrose) 1,000 mls @ 200 mls/hr IV .Q5H [facility] Last Admin: 06/28/22 17:58 Dose: 200 mls/hr Insulin Human Lispro (Insulin Lispro 100 Unit/Ml 3 Ml Vial) 0 unit SUBCUT Q6H [facility]; Protocol Last Admin: 06/28/22 19:04 Dose: 6 unit Home Medications Medication Instructions Recorded Confirmed Last Taken Type clonazepam 1 mg tablet (Klonopin) 1 mg PO BID 07/16/20 06/28/22 Unknown History hydroxyzine HCl 25 mg tablet 25 mg PO BID PRN Anxiety 03/10/22 06/28/22 Unknown History cholestyramine-aspartame 4 gram 1 ea PO BID diarrhea 06/28/22 06/28/22 Unknown History oral powder (Cholestyramine Light) diclofenac sodium 1 % topical gel 4 g topical QID PRN Pain 06/28/22 06/28/22 Unknown History (Voltaren Arthritis Pain) glipizide 5 mg tablet 1 tab PO DAILY 06/28/22 06/28/22 Unknown History sertraline 100 mg tablet 1 tab PO DAILY 06/28/22 06/28/22 Unknown History Physical Exam Vital Signs: Vital Signs: Last Vital Signs Temp 97.9 F 06/28/22 17:06 Pulse 76 06/28/22 19:00 Resp 28 H 06/28/22 19:00 BP 97/49 L 06/28/22 19:00 Pulse Ox 92 06/28/22 19:00 O2 Del Method 06/28/22 19:00 O2 Flow Rate 3 06/28/22 19:00 BMI result Body Mass Index 27.8 ?General:? Alert oriented x3, lethargic. Able to answer questions appropiately ?HEENT:? Head is normocephalic, atraumatic, pupils equal round reactive to light accommodation bilaterally.? Extraocular movements appear intact.? Buccal mucosa is dry, Neck is supple without lymphadenopathy. ?Cardiac:A flutter 3:1. no murmurs rubs or gallops. ?Pulmonary:Rhonchi throughout, no wheezes. No resp distress ?Abdomen:? ?Abdomen soft, non-tender, non-distended. Normal bowel sounds. No pulsatile mass. ?Musculoskeletal:? Moving all 4 extremities upon request a major joints, there is no crepitus or tenderness.? The strength is 5/5 bilaterally and throughout all 4 extremities.? Gait not assessed at this point. ?Neurologic:? cranial nerves 2-12 are grossly intact.? No focal deficits noted.Motor strength as above.?? ?Skin:? Multiple bruises on left side extending from arm to left hip. Vascular:? 2+ pulses upper and lower extremities distally Results Labs 06/28/22 13:59 06/28/22 13:59 Labs: Laboratory Results - last 24 hr 06/28/22 06/28/22 06/28/22 13:50 13:59 13:59 MCV 88.9 MCH 28.6 MCHC 32.1 RDW 14.0 Plt Count 407 H D MPV 11.1 Immature Gran % (Auto) Cancelled Neut % (Auto) Cancelled Lymph % (Auto) Cancelled [place] % (Auto) Cancelled Eos % (Auto) Cancelled Baso % (Auto) Cancelled Lymph # (Auto) Cancelled [place] # (Auto) Cancelled Eos # (Auto) Cancelled Baso # (Auto) Cancelled Abs Immat Gran (auto) Cancelled Absolute Neuts (auto) Cancelled Absolute Nucleated RBC 0.000 Nucleated RBC % (auto) 0.0 Neutrophils % (Manual) 46 Band Neutrophils % 27 H Lymphocytes % (Manual) 18 L Monocytes % (Manual) 7 Metamyelocytes % 2 Abs Neuts (Manual) 18.9 H Lymphocytes # (Manual) 4.7 Monocytes # (Manual) 1.8 H Metamyelocytes # 0.5 Toxic Vacuolation PRESENT Platelet Estimate SLIGHTLY INCREASED Plt Morphology Comment NORMAL RBC Morphology NOTED Ovalocytes 1+ (5-14) Ian Cells 3+ (>5) Acanthocytes (Spur) 1+ (0-2) PT 20.6 H INR 1.8 H APTT 35.7 O2 Saturation ABG pH at Pt Temp ABG pCO2 at Pt Temp ABG pO2 at Pt Temp ABG HCO3 ABG Base Excess (Actual) VBG pH VBG pCO2 VBG pO2 VBG HCO3 VBG O2 Saturation VBG Base Excess Anion Gap Estim Creat Clear Calc Estimated GFR POC Glucose 312 H Random Glucose Lactic Acid Lactic Acid F/U @ 2Hr Calcium Total Bilirubin AST ALT Alkaline Phosphatase Total Creatine Kinase Troponin I High Sens Total Protein Albumin Lipase Urine Color Urine Appearance Urine pH Ur Specific [place] Urine Protein Urine Glucose (UA) Urine Ketones Urine Blood Urine Nitrite Ur Leukocyte Esterase Urine RBC Urine WBC Ur Squamous Epith Cells Other Crystals Urine Bacteria Hyaline Casts Acetone, Qual Influenza Type A (PCR) Influenza Type B (PCR) RSV RNA Qual (PCR) SARS-CoV-2 RNA (RT-PCR) Blood Type Antibody Screen 06/28/22 06/28/22 06/28/22 13:59 13:59 13:59 MCV MCH MCHC RDW Plt Count MPV Immature Gran % (Auto) Neut % (Auto) Lymph % (Auto) [place] % (Auto) Eos % (Auto) Baso % (Auto) Lymph # (Auto) [place] # (Auto) Eos # (Auto) Baso # (Auto) Abs Immat Gran (auto) Absolute Neuts (auto) Absolute Nucleated RBC Nucleated RBC % (auto) Neutrophils % (Manual) Band Neutrophils % Lymphocytes % (Manual) Monocytes % (Manual) Metamyelocytes % Abs Neuts (Manual) Lymphocytes # (Manual) Monocytes # (Manual) Metamyelocytes # Toxic Vacuolation Platelet Estimate Plt Morphology Comment RBC Morphology Ovalocytes [place] Cells Acanthocytes (Spur) PT INR APTT O2 Saturation ABG pH at Pt Temp ABG pCO2 at Pt Temp ABG pO2 at Pt Temp ABG HCO3 ABG Base Excess (Actual) VBG pH VBG pCO2 VBG pO2 VBG HCO3 VBG O2 Saturation VBG Base Excess Anion Gap 33 H Estim Creat Clear Calc 13.3 Estimated GFR 12 POC Glucose Random Glucose 348 H Lactic Acid 2.7 H* Lactic Acid F/U @ 2Hr Calcium 9.3 Total Bilirubin 1.1 H AST 412 H ALT 180 H Alkaline Phosphatase 62 Total Creatine Kinase 74768 H Troponin I High Sens > 3600.0 H* Total Protein 6.0 L Albumin 3.6 Lipase 9 Urine Color Urine Appearance Urine pH Ur Specific [place] Urine Protein Urine Glucose (UA) Urine Ketones Urine Blood Urine Nitrite Ur Leukocyte Esterase Urine RBC Urine WBC Ur Squamous Epith Cells Other Crystals Urine Bacteria Hyaline Casts Acetone, Qual Moderate H Influenza Type A (PCR) Influenza Type B (PCR) RSV RNA Qual (PCR) SARS-CoV-2 RNA (RT-PCR) Blood Type Antibody Screen 06/28/22 06/28/22 06/28/22 14:04 15:00 15:47 MCV MCH MCHC RDW Plt Count MPV Immature Gran % (Auto) Neut % (Auto) Lymph % (Auto) [place] % (Auto) Eos % (Auto) Baso % (Auto) Lymph # (Auto) [place] # (Auto) Eos # (Auto) Baso # (Auto) Abs Immat Gran (auto) Absolute Neuts (auto) Absolute Nucleated RBC Nucleated RBC % (auto) Neutrophils % (Manual) Band Neutrophils % Lymphocytes % (Manual) Monocytes % (Manual) Metamyelocytes % Abs Neuts (Manual) Lymphocytes # (Manual) Monocytes # (Manual) Metamyelocytes # Toxic Vacuolation Platelet Estimate Plt Morphology Comment RBC Morphology Ovalocytes Ian Cells Acanthocytes (Spur) PT INR APTT O2 Saturation ABG pH at Pt Temp ABG pCO2 at Pt Temp ABG pO2 at Pt Temp ABG HCO3 ABG Base Excess (Actual) VBG pH VBG pCO2 VBG pO2 VBG HCO3 VBG O2 Saturation VBG Base Excess Anion Gap Estim Creat Clear Calc Estimated GFR POC Glucose Random Glucose Lactic Acid Lactic Acid F/U @ 2Hr Calcium Total Bilirubin AST ALT Alkaline Phosphatase Total Creatine Kinase 45414 H Troponin I High Sens Total Protein Albumin Lipase Urine Color Urine Appearance Urine pH Ur Specific [place] Urine Protein Urine Glucose (UA) Urine Ketones Urine Blood Urine Nitrite Ur Leukocyte Esterase Urine RBC Urine WBC Ur Squamous Epith Cells Other Crystals Urine Bacteria Hyaline Casts Acetone, Qual Influenza Type A (PCR) NEGATIVE Influenza Type B (PCR) NEGATIVE RSV RNA Qual (PCR) NEGATIVE SARS-CoV-2 RNA (RT-PCR) NEGATIVE Blood Type O Positive Antibody Screen NEGATIVE 06/28/22 06/28/22 06/28/22 15:52 16:19 16:37 MCV MCH MCHC RDW Plt Count MPV Immature Gran % (Auto) Neut % (Auto) Lymph % (Auto) [place] % (Auto) Eos % (Auto) Baso % (Auto) Lymph # (Auto) [place] # (Auto) Eos # (Auto) Baso # (Auto) Abs Immat Gran (auto) Absolute Neuts (auto) Absolute Nucleated RBC Nucleated RBC % (auto) Neutrophils % (Manual) Band Neutrophils % Lymphocytes % (Manual) Monocytes % (Manual) Metamyelocytes % Abs Neuts (Manual) Lymphocytes # (Manual) Monocytes # (Manual) Metamyelocytes # Toxic Vacuolation Platelet Estimate Plt Morphology Comment RBC Morphology Ovalocytes [place] Cells Acanthocytes (Spur) PT INR APTT O2 Saturation ABG pH at Pt Temp ABG pCO2 at Pt Temp ABG pO2 at Pt Temp ABG HCO3 ABG Base Excess (Actual) VBG pH 7.06 L* VBG pCO2 26 VBG pO2 51 VBG HCO3 8 L VBG O2 Saturation 68.0 VBG Base Excess -20.9 Anion Gap Estim Creat Clear Calc Estimated GFR POC Glucose Random Glucose Lactic Acid Lactic Acid F/U @ 2Hr 3.1 H* Calcium Total Bilirubin AST ALT Alkaline Phosphatase Total Creatine Kinase Troponin I High Sens Total Protein Albumin Lipase Urine Color Dark Yellow Urine Appearance Cloudy Urine pH 5.5 Ur Specific [place] >= 1.030 H Urine Protein 300 (3+) H Urine Glucose (UA) >=1000 H Urine Ketones 15 Urine Blood Large (3+) H Urine Nitrite Negative Ur Leukocyte Esterase Small (1+) H Urine RBC >20 H Urine WBC 21-50 H Ur Squamous Epith Cells 6-10 Other Crystals Present Urine Bacteria None Seen Hyaline Casts 0-2 Acetone, Qual Influenza Type A (PCR) Influenza Type B (PCR) RSV RNA Qual (PCR) SARS-CoV-2 RNA (RT-PCR) Blood Type Antibody Screen 06/28/22 06/28/22 17:58 18:41 MCV MCH MCHC RDW Plt Count MPV Immature Gran % (Auto) Neut % (Auto) Lymph % (Auto) [place] % (Auto) Eos % (Auto) Baso % (Auto) Lymph # (Auto) [place] # (Auto) Eos # (Auto) Baso # (Auto) Abs Immat Gran (auto) Absolute Neuts (auto) Absolute Nucleated RBC Nucleated RBC % (auto) Neutrophils % (Manual) Band Neutrophils % Lymphocytes % (Manual) Monocytes % (Manual) Metamyelocytes % Abs Neuts (Manual) Lymphocytes # (Manual) Monocytes # (Manual) Metamyelocytes # Toxic Vacuolation Platelet Estimate Plt Morphology Comment RBC Morphology Ovalocytes Ian Cells Acanthocytes (Spur) PT INR APTT O2 Saturation 90.0 ABG pH at Pt Temp 7.21 L ABG pCO2 at Pt Temp 25 L ABG pO2 at Pt Temp 73 L ABG HCO3 10 L ABG Base Excess (Actual) -15.4 VBG pH VBG pCO2 VBG pO2 VBG HCO3 VBG O2 Saturation VBG Base Excess Anion Gap Estim Creat Clear Calc Estimated GFR POC Glucose 299 H Random Glucose Lactic Acid Lactic Acid F/U @ 2Hr Calcium Total Bilirubin AST ALT Alkaline Phosphatase Total Creatine Kinase Troponin I High Sens Total Protein Albumin Lipase Urine Color Urine Appearance Urine pH Ur Specific [place] Urine Protein Urine Glucose (UA) Urine Ketones Urine Blood Urine Nitrite Ur Leukocyte Esterase Urine RBC Urine WBC Ur Squamous Epith Cells Other Crystals Urine Bacteria Hyaline Casts Acetone, Qual Influenza Type A (PCR) Influenza Type B (PCR) RSV RNA Qual (PCR) SARS-CoV-2 RNA (RT-PCR) Blood Type Antibody Screen Imaging Radiologist's Impressions: Impressions Chest CT 06/28/22 14:53 IMPRESSION: 1. Left upper lobe pneumonia. 2. No acute abnormality the abdomen or pelvis. Head CT 06/28/22 14:54 IMPRESSION: 1. No acute intracranial pathology. 2. No CT evidence of acute cervical spine fracture or traumatic subluxation Abdomen/Pelvis CT 06/28/22 14:55 IMPRESSION: 1. Left upper lobe pneumonia. 2. No acute abnormality the abdomen or pelvis. Cervical Spine CT 06/28/22 14:55 IMPRESSION: 1. No acute intracranial pathology. 2. No CT evidence of acute cervical spine fracture or traumatic subluxation Hip/Pelvis X-Ray 06/28/22 17:00 IMPRESSION: 1. No acute displaced fracture of the hip. If the pain persists consider CT for follow-up. 2. 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 Assessment and Plan (1) Acute renal failure: Status: Acute (2) Rhabdomyolysis: Qualifiers: Encounter type: initial encounter Status: Acute (3) Fluid volume depletion: Status: Acute (4) Fall: Qualifiers: Encounter type: initial encounter Qualified Code(s): W19.XXXA - Unspecified fall, initial encounter Status: Acute (5) Anuria: Status: Acute (6) Aspiration pneumonia: Qualifiers: Laterality: left Lung location: lower lobe of lung Status: Acute (7) Elevated troponin: Status: Acute (8) Atrial flutter: Status: Acute (9) Torsades de pointes: Status: Acute (10) Pneumonia: Status: Acute (11) Hyperglycemia: Status: Acute (12) Transaminitis: Status: Acute Plan Neuro:? Fall-? patient described a mechanical fall at home. CT head/cervical spine negative? for acute findings. Neuro assessment intact.? Cardiac:?? ?Rhabdomyolysis- Patient sustained a fall and was on the floor for approximately a day.? [place]? [place] [id number], with elevated BUN and creat. Received x 3 L fluids in ED.. Started on Bicarb drip with 150meq at 200/hr. Will cont with IV fluids ? Elevated troponin-? troponin >3600. patient denied chest pain during initial assessment.? Initial EKG? was stable.? Repeat troponin still >3600.? Will send out to [facility]? to have accurate reading.? ? Wide complex tachycardia? with pulse-? patient had? x2 episodes of torsades with a pulse.? Laboratory data show a drop? in magnesium.? Will place magnesium.? ? Elevated lactic-? no evidence of septic shock,? elevated lactic? likely in the setting of rhabdo.?? Pulmonary:? ?Left lower lobe pneumonia- Chest CT? did show some left lower lobe pneumonia. Requiring minimal amount of supplemental oxygenation. ? Treated with Zosyn in the ED.? Will continue Zosyn Renal:?? ?Acute renal failure: patient likely ATN from volume depletion and rhabdo. Received 3l in the ED. Had 200 Ml of urine during initial placement of cummings, but later became anuric. Renal consulted as stated above. Emergent dialysis tonight. Will repeat labs post dialysis. Labs send to outside hosp. Endo:?? ?Hyperglycemia- Patient sudden decompensation not likely DKA, but will initiate insulin drip for elevated blood sugar.? GI:? ?Transaminitis- ? no coagulopathy, could be related to rhabdo? Continue to trend LFTs? ?? ID:?? ?Left lower lobe pneumonia-? continue Zosyn.? Heme/Onc:? No acute issues. Psych:? No acute issues. Misc:? Patient? daughterTricia? updated of patient?s? status throughout the night Diet:NPO? Prophylaxis: on Eliquis at home, will use? pneumonic. GI: IV pepsid? Code? status:? FULL CODE, ? code status was confirmed with patient prior to? rapid decline.? ?Critical care time: x 120 min of critical care time? ?Case discussed with attending Dr Yoo? Time Spent With Patient Time: Total time managing care of this patient today __120__ minutes.
[2022-06-28 19:48] LABS: ~Lactic Acid-LAB USE ONLY 2.1 mmol/L (0.5-2.0)
[2022-06-28 20:47] LABS: VBG Base Excess -11.5 mmol/L; VBG HCO3 15 mmol/L (22-26); VBG pCO2 37 mmHg; VBG pH 7.21 (7.32-7.43); VBG pO2 46 mmHg
[2022-06-28 20:49] LABS: Venous Blood Gas Refer to POC result
--- NOTE | 2022-06-28 21:01 | P.PNCC_ITS ---
Critical Care Event Note Summary Date of Service: 06/28/22 Code activated: No Narrative: Case discussed with horse stud worker on-call Dr. Ugalde and emergent hemodialysis for profound metabolic acidosis requested. Investment Banking Manager on-call does not see a need for emergent hemodialysis and requests further work up including serum osmolality and work up for toxic ingestion. Serum osmolality is pending. Toxic alcohol panel is a send out lab - ordered. Critical Care Time (minutes): 0
[2022-06-28] MEDS: Sodium Bicarbonate 8.4% 50 MEQ/50 ML SYRINGE IVPUSH ×2 (21:10→21:38)
[2022-06-28 21:19] LABS: Osmolality, Serum 352 mosm/kg (281-305)
[2022-06-28 21:37] LABS: Anion Gap 28 (12-20); Blood Urea Nitrogen 67 mg/dL (9-16); Carbon Dioxide 14 mmol/L (22-29); Chloride 111 mmol/L (96-108); Creatinine Clr Calc Pharmacy 13.4; Estimated Glomerular Filt Rate 12; Ethanol < 10 mg/dL; Glucose Random 385 mg/dL (60-115); Potassium 4.3 mmol/L (3.3-5.1); Sodium 149 mmol/L (135-145)
[2022-06-28] MEDS: propofoL 200 MG/20 ML VIAL 100 MG IVPUSH (21:37)
[2022-06-28] MEDS: propofoL 1,000 MG/100 ML VIAL 13.66 MG IVCONT (21:38)
[2022-06-28] MEDS: Norepinephrine Bitartrate/D5W 8 MG/250 ML PLAST..BAG 7.12 MG IV (21:38)
--- NOTE | 2022-06-28 21:50 | ECG_ITS ---
Test Reason : CP Blood Pressure : / mmHG Vent. Rate : 101 BPM Atrial Rate : 303 BPM P-R Int : 000 ms QRS Dur : 082 ms QT Int : 324 ms P-R-T Axes : 080 029 029 degrees QTc Int : 420 ms Atrial flutter with 3:1 A-V conduction Low voltage QRS Septal infarct (cited on or before 01-FEB-2022) Abnormal ECG When compared with ECG of 28-JUN-2022 14:05, ST elevations improved in anterolateral leads Referred By: Raheel Tobias Electronically Signed By:Howie Steele
[2022-06-28] MEDS: Amiodarone/Dextrose 150 MG/100 ML PLAST..BAG 600 MG IV (22:00)
[2022-06-28 22:05] LABS: VBG Base Excess -3.9 mmol/L; VBG HCO3 20 mmol/L (22-26); VBG pCO2 34 mmHg; VBG pH 7.37 (7.32-7.43); VBG pO2 53 mmHg
[2022-06-28 22:36] LABS: Amphetamine Screen Urine Not Detected (Not Detect); Barbiturates, Urine Not Detected (Not Detect); Benzodiazepines Screen Urine Not Detected (Not Detect); Cannabinoid Screen Urine Not Detected (Not Detect); Cocaine Screen Urine Not Detected (Not Detect); Fentanyl, urine Not Detected (Not Detect); Opiate Screen Urine Not Detected (Not Detect); Phencyclidine Screen Urine Not Detected (Not Detect)
[2022-06-28 22:43] LABS: Alanine Aminotransferase 159 U/L (0-31); Albumin Level 2.9 g/dL (3.5-5.0); Alkaline Phosphatase 54 U/L (39-117); Anion Gap 30 (12-20); Aspartate Amino Transferase 300 U/L (5-31); Blood Urea Nitrogen 69 mg/dL (9-16); Carbon Dioxide 19 mmol/L (22-29); Chloride 109 mmol/L (96-108); Creatinine Clr Calc Pharmacy 12.6; Estimated Glomerular Filt Rate 11; Glucose Random 391 mg/dL (60-115); Sodium 154 mmol/L (135-145); Total Protein 4.7 g/dL (6.5-8.0)
[2022-06-28] MEDS: Insulin Regular/NS 100 UNIT/100 ML PLAST..BAG IVCONT (22:55)
[2022-06-28 23:04] LABS: Magnesium 1.6 mg/dL (1.6-2.6); Phosphorus 6.9 mg/dL (2.7-4.5)
[2022-06-28 23:13] LABS: Troponin-I High Sensitivity > 3600.0 ng/L (<3.5-17.0)
[2022-06-28] MEDS: Magnesium Sulfate/H2O 2 GM/50 ML PIGGYBACK IV (23:22)
[2022-06-29] VITALS (44 sets, daily range): BP systolic 79–154; BP diastolic 39–73; PULSE 72–94; RESP 15–35; TEMP 34.9–37.9; O2SAT 95–100; BMI 31.5
--- NOTE | 2022-06-29 00:04 | W.PM.CCHP ---
Procedures Date of Service Date of Service: 06/28/22 Intubation Intubation Comments: Patient required to be intubated for airway protection, Patient intubated with 7.5 cuffed ET tube under glide scope guidance with visualization of vocal cords, without immediate complications. ET with tube position verified with Chest XRAY. Consent for Procedure: Emergent-no informed consent obtained Time out performed: Yes Sedative: propofol Mg given: 100 ET tube size: 7.5 ET tube uncuffed: No Tube secured depth (cm): 22 Tube secured location: lips Tube placement confirmation: visualized tube passing through cords, equal breath sounds bilaterally, no breath sounds over epigastrium and confirmation by capnometry Patient tolerated procedure: well and no complications Intubation complications: none
[2022-06-29 00:18] LABS: Glucose, Whole Blood 258 mg/dL (60-115)
[2022-06-29] MEDS: Sodium Bicarbonate 8.4% 150 MEQ in Dextrose 5 % 850 ML 200 MEQ IV (01:04)
[2022-06-29 01:10] LABS: Glucose, Whole Blood 217 mg/dL (60-115)
[2022-06-29] MEDS: Sodium Bicarbonate 8.4% 50 MEQ/50 ML VIAL IVPUSH (01:30)
[2022-06-29] MEDS: Norepinephrine Bitartrate/D5W 8 MG/250 ML PLAST..BAG 55.5 MG IV (01:55)
[2022-06-29] MEDS: propofoL 1,000 MG/100 ML VIAL 13.66 MG IVCONT ×3 (01:56→21:56)
[2022-06-29 02:03] LABS: Glucose, Whole Blood 200 mg/dL (60-115)
[2022-06-29 03:12] LABS: Glucose, Whole Blood 175 mg/dL (60-115)
[2022-06-29 04:07] LABS: VBG Base Excess 2.3 mmol/L; VBG HCO3 26 mmol/L (22-26); VBG pCO2 37 mmHg; VBG pH 7.44 (7.32-7.43); VBG pO2 46 mmHg
[2022-06-29 04:09] LABS: Glucose, Whole Blood 196 mg/dL (60-115)
[2022-06-29 04:44] LABS: Hematocrit 36.5 % (37.0-47.0); Hemoglobin 12.4 g/dl (12.0-16.0); Mean Corpuscular Hemoglobin 28.4 pg (27.0-33.0); Mean Corpuscular Volume 83.7 fL (80.0-98.0); Mean Platelet Volume 10.4 fL (9.4-12.3); NRBC Pct Auto 0.1 /100WBC (0.0-0.2); Platelet Count 383 X10*3/uL (160-400); Red Blood Count 4.36 X10*6/uL (4.20-5.50); Red Cell Distribution Width 13.9 % (11.0-16.0)
[2022-06-29] MEDS: Dextrose 5 % and Lactated Ring 1,000 ML 150 ML IVCONT (04:44)
[2022-06-29] MEDS: Piperacillin Sodium/Tazobactam 2.25 GM in 0.9 % Sodium Chloride 50 ML IV ×4 (04:45→21:56)
[2022-06-29 05:05] LABS: Alanine Aminotransferase 161 U/L (0-31); Albumin Level 3.1 g/dL (3.5-5.0); Alkaline Phosphatase 69 U/L (39-117); Anion Gap 20 (12-20); Aspartate Amino Transferase 275 U/L (5-31); Bilirubin Total 1.2 mg/dL (0.0-1.0); Blood Urea Nitrogen 20 mg/dL (9-16); Calcium 8.1 mg/dL (8.4-10.2); Carbon Dioxide 22 mmol/L (22-29); Chloride 98 mmol/L (96-108); Estimated Glomerular Filt Rate 33; Glucose Random 207 mg/dL (60-115); Magnesium 1.6 mg/dL (1.6-2.6); Phosphorus 3.1 mg/dL (2.7-4.5); Potassium 3.2 mmol/L (3.3-5.1); Sodium 137 mmol/L (135-145)
[2022-06-29 05:07] LABS: Troponin-I High Sensitivity > 3600.0 ng/L (<3.5-17.0)
[2022-06-29 05:08] LABS: WBC ABN SCTR FOR CBC 1
[2022-06-29 05:09] LABS: White Blood Count 23.4 X10*3/uL (4.8-10.8)
[2022-06-29 05:17] LABS: Band Neutrophils Percent 25 % (3-5); Lymphocytes Absolute Manual 3.7 X10*3/uL (1.2-4.9); Lymphocytes Percent Manual 16 % (20-40); Metamyelocytes Absolute 0.7 X10*3/uL; Metamyelocytes Percent 3 %; Monocytes Absolute Manual 1.2 X10*3/uL (0.1-1.2); Monocytes Percent Manual 5 % (2-11); Myelocytes Absolute 0.2 X10*/uL; Myelocytes Percent 1 %; Neutrophils Absolute Manual 17.6 X10*3/uL (2.0-8.3); Neutrophils Percent Manual 50 % (45-73); RBC Morphology NOTED
[2022-06-29 05:17] LABS: Glucose, Whole Blood 203 mg/dL (60-115)
[2022-06-29 05:19] LABS: Acanthocytes 1+ (0-2) /OIF; Burr Cells 3+ (>5) /OIF; Dohle Bodies PRESENT; Large Platelet PRESENT; Ovalocytes 1+ (5-14) /OIF; Platelet Estimate NORMAL (NORMAL); Platelet Morphology Comment NORMAL; Toxic Vacuolation PRESENT
[2022-06-29] MEDS: Potassium Chloride/H20 40 MEQ/100 ML PIGGYBACK 50 MEQ IV (05:31)
[2022-06-29] MEDS: Magnesium Sulfate/H2O 2 GM/50 ML PIGGYBACK IV ×2 (05:31→09:51)
[2022-06-29 06:12] LABS: Glucose, Whole Blood 216 mg/dL (60-115)
[2022-06-29] MEDS: Norepinephrine Bitartrate/D5W 8 MG/250 ML PLAST..BAG 35.58 MG IV (06:14)
--- NOTE | 2022-06-29 06:19 | PC.NURSE ---
Upon initial assessment at 1900- Pt A&Ox3, lethargic, answers questions appropriately, Rashad changed at 1930 per PROCESS DESIGNER d/t ?patency, remains anuric. On bicarb gtt per aug. Nephrology consulted. At approx 2100- pt in respiratory distress (RR 30s, using accessory muscles, SpO2 90% on 5L NC), AMS- decision made to intubate for airway protection. Given propofol 100 mg IVP for RSI. At 2145- pt went into NSVT/TdP x2 on tele, PROCESS DESIGNER notified and to bedside. Given amiodarone 150 mg IV bolus x1 and magnesium 2 gm IV x1. HD cath placed to R IJ, HD started at 2320. pCXR completed. Insulin gtt started at approx 0000 for glucose of 391, started per protocol. Pt sedated on propofol, RASS -3, +cough/gag, responds to noxious stimuli. Aflutter 3:1 on tele, HR 70-90s. Levophed ordered and titrated to maintain MAP > 65. ETT #7.5, 22 cm at lip. On AC settings- 16/350/5/60%, RR 20s. 16fr OGT placed, connected to LWS, approx 100 ml of coffee grounds noted. Solorzano in place, anuric, 20 ml drained [id number]. IVF changed per aug. KCL 40 mEq IV x1 and magnesium 2 gm IV x1 replaced. Skin- extensive bruising to B/L extremities and flank, skin tear to L elbow and R foot, foam dressings placed. Full CHG bath given this AM. Repositioned q2hr, wedges utilized. Family updated by PROCESS DESIGNER on pt status/plan of care.
--- NOTE | 2022-06-29 07:00 | CA_ITS ---
Transthoracic Echocardiogram Patient (Last, First, Middle): Jennifer English K Gender: Female Date of : 1945 Age: 77 Procedure Date: 06/29/2022 Procedure Type: Transthoracic Echocardiogram Location: ICU Height: 165.1 cm Weight: 85.73 kg BSA: 1.93 m2 Heart Rate: 75 bpm BP: 134 / 64 mmHg Epic Manager: SB Referring MD: Daryl Yoo MD Symptoms: dyspnea Study Quality: Adequate w contrast ECG Rhythm: Atrial flutter Conclusions: - Normal left ventricular cavity size. There is mildly increased left ventricular wall thickness. The left ventricular systolic function is mildly decreased. The visually estimated ejection fraction is between 40-45%. - The entire apex is akinetic. 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 - The right ventricular systolic pressure is 45 mmHg. Moderately elevated right atrial pressure. Mild pulmonary hypertension is present. Findings Procedure Information Contrast agent, definity, is being given per protocol without apparent complications. Left Ventricle Normal left ventricular cavity size. There is mildly increased left ventricular wall thickness. The left ventricular systolic function is mildly decreased. The visually estimated ejection fraction is between 40-45%. There is evidence of regional wall motion abnormalities. Diastolic function is indeterminate on the basis of available data. There is severe septal asymmetric hypertrophy. Wall Motion Rest Echo Findings The entire apex is akinetic. Right Ventricle Normal right ventricular cavity size and systolic function. Atria The left atrium is mildly dilated. The right atrium is mildly dilated. Aortic Valve There is a normal trileaflet aortic valve. There is mild thickening of the aortic valve. There is no aortic valve stenosis. There is trace (trivial) aortic valve regurgitation. Mitral Valve Normal mitral valve structure and function. There is trace mitral valve regurgitation. There is no mitral valve stenosis. Pulmonic Valve Normal pulmonic valve structure and function. There is no pulmonic valve regurgitation. Tricuspid Valve Normal tricuspid valve structure. There is mild tricuspid valve regurgitation. The right ventricular systolic pressure is 45 mmHg. Moderately elevated right atrial pressure. Mild pulmonary hypertension is present. Great Vessels All visible segments of the aorta are normal in size. The visualized portions of the pulmonary artery and branches are normal. Venous The inferior vena cava is normal in size and collapses less than 50% with inspiration. Pericardium/Pleural There is no evidence of pericardial effusion. Prior Study Comparison Changes noted compared to prior study dated: 02/11/2022. EF 40-45%, apical RWMA Measurements 2D Linear Measurements IVSd: 1.53 0.6-0.9/0.6-1.0 cm LVIDd: 4.08 3.9-5.3/4.2-5.9 cm LVIDd Index: 2.11 2.4-3.2/2.2-3.1 cm/m2 LVIDs: 2.45 2.0-3.6 cm LVPWd: 0.91 0.7-1.1 cm LA Diam: 3.80 2.7-3.8/3.0-4.0 cm LAIDs Index: 1.97 1.5-2.3 cm/m2 LV Mass: 217.36 67-162/88-224 g LV Mass Index: 112.62 43-95/49-115 g/m2 LVOT Diam: 2.10 3.0+(-)1.3 cm 2D Systolic Function EF 4C: 45.80 >55% EF 2C: 47.50 >55% EF BiP: 44.90 >55% Mitral Valve MV Pk E: 0.72 Aortic Valve AoV Pk Donell: 1.32 AoV Pk Grad: 7.00 SAMIRA: 2.90 LVOT LVOT Pk Donell: 1.04 LVOT Mn Donell: 0.72 LVOT VTI: 0.16 LVOT Pk Grad: 4.00 LVOT Mn Grad: 2.00 LVOT Diam: 2.10 LVOT Area: 3.46 Diastolic Function MV Pk E: 0.72 Right Ventricle TAPSE (mm): 15.20 TVS' Donell: 15.40 Tricuspid Valve TR Pk Donell: 3.06 TR Pk Grad: 37.00 RA Press: 8.00 RVSP: 45.00 Great Vessels Aorta Sinus of Valsalva: 3.10 2.0-3.5 cm Ao Asc: 2.80 2.1-3.4 cm Pulmonary Valve PV Pk Donell: 0.83 Peak PV Grad: 3.00 Updated in Other Vendor System with Status of Final Howie Steele MD electronically signed on 06/29/2022 3:46:34 PM with status of Final
[2022-06-29 07:09] LABS: Glucose, Whole Blood 225 mg/dL (60-115)
[2022-06-29] MEDS: Famotidine/PF 20 MG/2 ML VIAL IVPUSH (07:36)
[2022-06-29] MEDS: Chlorhexidine Gluc Oral Rinse 15 ML MOUTHWASH BUCCAL ×3 (07:36→21:56)
[2022-06-29 07:56] LABS: Glucose, Whole Blood 241 mg/dL (60-115)
[2022-06-29] MEDS: Insulin Glargine,Hum.rec.anlog 100 UNIT/ML 10 ML VIAL 30 UNIT SUBCUT (08:02)
[2022-06-29] MEDS: Potassium Chloride/H20 40 MEQ/100 ML PIGGYBACK 100 MEQ IV (08:19)
[2022-06-29 09:08] LABS: Glucose, Whole Blood 214 mg/dL (60-115)
[2022-06-29] MEDS: Heparin Sodium,Porcine 5,000 UNIT/ML VIAL 5000 UNIT SUBCUT ×2 (09:51→18:07)
[2022-06-29 10:03] LABS: Analysis Performed on: WHOLE BLOOD; Methyl Alcohol Level NONE DETECTED (NONE DETECTED)
[2022-06-29 10:03] LABS: Acetone 33 mg/dL (NONE DETECTED); Analysis performed on: WHOLE BLOOD; Ethyl Alcohol g/dL (%) NONE DETECTED g/dL(%) (NONE DETECTED); Ethyl Alcohol mg/dL NONE DETECTED (NONE DETECTED); Isopropanol NONE DETECTED (NONE DETECTED)
--- NOTE | 2022-06-29 10:25 | MHC.CLN ---
RE: CONSULT PT IS INTUBATED AND SEDATED CURRENTLY NPO IF TF NEEDED; RECOMMEND GLUCERNA AT MAX GOAL RATE 50ML/HR TO PROVIDE 1200KCALS (1560KCALS WITH SEDATION; 23KCALS/KG), 50G PROTEIN, 1023ML FREE WATER FROM FORMULA MONITOR TOLERANCE, RESIDUALS AND LYTES SEE ALSO FULL CLINICAL NUTRITION ASSESSMENT
[2022-06-29 10:58] LABS: Methyl Alcohol NONE DETECTED
[2022-06-29 11:03] LABS: Ethylene Glycol NONE DETECTED (NONE DETECTED)
[2022-06-29 11:49] LABS: ABG Refer to POC result
[2022-06-29 11:50] LABS: Venous Blood Gas Refer to POC result
[2022-06-29 11:55] LABS: Venous Blood Gas Refer to POC result
[2022-06-29 11:59] LABS: Glucose, Whole Blood 247 mg/dL (60-115)
[2022-06-29] MEDS: Insulin Lispro 100 UNIT/ML 3 ML VIAL SUBCUT ×2 (12:00→17:06)
[2022-06-29] MEDS: propofoL 1,000 MG/100 ML VIAL 18.22 MG IVCONT ×2 (12:08→15:44)
--- NOTE | 2022-06-29 14:14 | MHC.CM.PN ---
This typewriter assembler meet w/ patient's daughter @ bedside to complete CM assessment. Patient from home, lives alone in apartment with no services prior to hospitalization. Vaccinated for COVID w/ booster. Daughter is unsure if patient has a completed HCP- call placed to [facility] records in search for copy. IMM delivered to daughter. PCP Dr. Pavon. D/C plan is pending ICU course, daughter is open to STR or Home w/ [facility] as appropriate.
--- NOTE | 2022-06-29 15:27 | PM.CCPN ---
Subjective Subjective Date of Service: 06/29/22 Interval History: 77-year-old lady underlying history of diabetes mellitus, a flutter on Eliquis, hypertension, CVA, CAD admitted on 06/28/2022 after patient sustained a mechanical fall and was on the floor for approximately 24 hours in her apartment, found by maintenance and brought to ER by EMS. On ER evaluation patient with acute renal failure, anuric, rhabdomyolysis with performed metabolic acidosis, admitted to the intensive care unit. Patient required initiation of home urgent hemodialysis support secondary to overwhelming of ability for respiratory compensation, also requiring intubation and ventilatory support. Empirically covered with broad-spectrum antibiotics. Acidosis and pressor requirements improved with dialysis. Events overnight as above, with nonsustained V-tach,still anuric. Critical Care Time (minutes): 60 Physical Exam Vital Signs: Vital Signs: Last Vital Signs Temp 99.5 F 06/29/22 15:00 Pulse 75 06/29/22 15:00 Resp 29 H 06/29/22 15:00 BP 109/57 L 06/29/22 15:00 Pulse Ox 100 06/29/22 15:00 O2 Del Method 06/29/22 15:00 O2 Flow Rate 3 06/28/22 20:00 FiO2 50 06/29/22 15:00 BMI result Body Mass Index 31.5 Const: General: no acute distress and other ( Sedated on the vent) Eyes: Sclerae: sclerae normal EOM: EOMs intact bilaterally Neck: Neck: Yes no lymphadenopathy, Yes trachea midline and Yes supple Resp: Effort & Inspection: normal respiratory effort and no respiratory distress Auscultation: clear to auscultation bilaterally Cardio: Rate: regular rate Rhythm: abnormal rhythm regularly irregular ( aflutter) Heart sounds: no gallops, no murmurs and no rubs GI: Palpation (GI): Soft to palpation and Other GI palpation findings present ( Nontender) Auscultation: normal bowel sounds Skin: General skin exam: ecchymosis ( over the left side /back) Extrem: General: No clubbing, No cyanosis and Yes edema ( trace bilateral) Objective Data Labs 06/29/22 04:00 06/29/22 04:00 Labs: Laboratory Results - last 24 hr 06/28/22 06/28/22 06/28/22 13:59 13:59 15:00 WBC 25.9 H RBC Hgb Hct MCV MCH MCHC RDW Plt Count MPV Immature Gran % (Auto) Neut % (Auto) Lymph % (Auto) [place] % (Auto) Eos % (Auto) Baso % (Auto) Lymph # (Auto) [place] # (Auto) Eos # (Auto) Baso # (Auto) Abs Immat Gran (auto) Absolute Neuts (auto) Absolute Nucleated RBC Nucleated RBC % (auto) Neutrophils % (Manual) Band Neutrophils % Lymphocytes % (Manual) Monocytes % (Manual) Metamyelocytes % Myelocytes % Abs Neuts (Manual) 18.9 H Lymphocytes # (Manual) 4.7 Monocytes # (Manual) 1.8 H Metamyelocytes # 0.5 Myelocytes # Toxic Vacuolation Dohle Bodies Platelet Estimate Large Platelets Plt Morphology Comment RBC Morphology Ovalocytes [place] Cells Acanthocytes (Spur) O2 Saturation ABG pH at Pt Temp ABG pCO2 at Pt Temp ABG pO2 at Pt Temp ABG HCO3 ABG Base Excess (Actual) VBG pH VBG pCO2 VBG pO2 VBG HCO3 VBG O2 Saturation VBG Base Excess Sodium Potassium Chloride Carbon Dioxide Anion Gap BUN Creatinine Estim Creat Clear Calc Estimated GFR POC Glucose Random Glucose Osmolality Lactic Acid F/U @ 2Hr Lactic Acid F/U @ 4Hr Calcium Phosphorus Magnesium Total Bilirubin AST ALT Alkaline Phosphatase Total Creatine Kinase Troponin I High Sens Total Protein Albumin Urine Color Urine Appearance Urine pH Ur Specific [place] Urine Protein Urine Glucose (UA) Urine Ketones Urine Blood Urine Nitrite Ur Leukocyte Esterase Urine RBC Urine WBC Ur Squamous Epith Cells Other Crystals Urine Bacteria Hyaline Casts Urine Opiates Screen Urine Fentanyl Screen Ur Barbiturates Screen Ur Phencyclidine Scrn Ur Amphetamines Screen U Benzodiazepines Scrn Urine Cocaine Screen U Marijuana (THC) Screen Ethylene Glycol Volat Analys Perform On Ethyl Alcohol Ethyl Alcohol mg/dL Ethyl Alcohol g/dL Methyl Alcohol Level Isopropyl Alc, Quant Acetone, Qual Moderate H Acetone Level Influenza Type A (PCR) NEGATIVE Influenza Type B (PCR) NEGATIVE RSV RNA Qual (PCR) NEGATIVE SARS-CoV-2 RNA (RT-PCR) NEGATIVE 06/28/22 06/28/22 06/28/22 15:47 15:52 16:19 WBC RBC Hgb Hct MCV MCH MCHC RDW Plt Count MPV Immature Gran % (Auto) Neut % (Auto) Lymph % (Auto) [place] % (Auto) Eos % (Auto) Baso % (Auto) Lymph # (Auto) [place] # (Auto) Eos # (Auto) Baso # (Auto) Abs Immat Gran (auto) Absolute Neuts (auto) Absolute Nucleated RBC Nucleated RBC % (auto) Neutrophils % (Manual) Band Neutrophils % Lymphocytes % (Manual) Monocytes % (Manual) Metamyelocytes % Myelocytes % Abs Neuts (Manual) Lymphocytes # (Manual) Monocytes # (Manual) Metamyelocytes # Myelocytes # Toxic Vacuolation Dohle Bodies Platelet Estimate Large Platelets Plt Morphology Comment RBC Morphology Ovalocytes [place] Cells Acanthocytes (Spur) O2 Saturation ABG pH at Pt Temp ABG pCO2 at Pt Temp ABG pO2 at Pt Temp ABG HCO3 ABG Base Excess (Actual) VBG pH 7.06 L* VBG pCO2 26 VBG pO2 51 VBG HCO3 8 L VBG O2 Saturation 68.0 VBG Base Excess -20.9 Sodium Potassium Chloride Carbon Dioxide Anion Gap BUN Creatinine Estim Creat Clear Calc Estimated GFR POC Glucose Random Glucose Osmolality Lactic Acid F/U @ 2Hr Lactic Acid F/U @ 4Hr Calcium Phosphorus Magnesium Total Bilirubin AST ALT Alkaline Phosphatase Total Creatine Kinase 73272 H Troponin I High Sens Total Protein Albumin Urine Color Dark Yellow Urine Appearance Cloudy Urine pH 5.5 Ur Specific [place] >= 1.030 H Urine Protein 300 (3+) H Urine Glucose (UA) >=1000 H Urine Ketones 15 Urine Blood Large (3+) H Urine Nitrite Negative Ur Leukocyte Esterase Small (1+) H Urine RBC >20 H Urine WBC 21-50 H Ur Squamous Epith Cells 6-10 Other Crystals Present Urine Bacteria None Seen Hyaline Casts 0-2 Urine Opiates Screen Urine Fentanyl Screen Ur Barbiturates Screen Ur Phencyclidine Scrn Ur Amphetamines Screen U Benzodiazepines Scrn Urine Cocaine Screen U Marijuana (THC) Screen Ethylene Glycol Volat Analys Perform On Ethyl Alcohol Ethyl Alcohol mg/dL Ethyl Alcohol g/dL Methyl Alcohol Level Isopropyl Alc, Quant Acetone, Qual Acetone Level Influenza Type A (PCR) Influenza Type B (PCR) RSV RNA Qual (PCR) SARS-CoV-2 RNA (RT-PCR) 06/28/22 06/28/22 06/28/22 16:37 17:58 18:41 WBC RBC Hgb Hct MCV MCH MCHC RDW Plt Count MPV Immature Gran % (Auto) Neut % (Auto) Lymph % (Auto) [place] % (Auto) Eos % (Auto) Baso % (Auto) Lymph # (Auto) [place] # (Auto) Eos # (Auto) Baso # (Auto) Abs Immat Gran (auto) Absolute Neuts (auto) Absolute Nucleated RBC Nucleated RBC % (auto) Neutrophils % (Manual) Band Neutrophils % Lymphocytes % (Manual) Monocytes % (Manual) Metamyelocytes % Myelocytes % Abs Neuts (Manual) Lymphocytes # (Manual) Monocytes # (Manual) Metamyelocytes # Myelocytes # Toxic Vacuolation Dohle Bodies Platelet Estimate Large Platelets Plt Morphology Comment RBC Morphology Ovalocytes Ian Cells Acanthocytes (Spur) O2 Saturation 90.0 ABG pH at Pt Temp 7.21 L ABG pCO2 at Pt Temp 25 L ABG pO2 at Pt Temp 73 L ABG HCO3 10 L ABG Base Excess (Actual) -15.4 VBG pH VBG pCO2 VBG pO2 VBG HCO3 VBG O2 Saturation VBG Base Excess Sodium Potassium Chloride Carbon Dioxide Anion Gap BUN Creatinine Estim Creat Clear Calc Estimated GFR POC Glucose 299 H Random Glucose Osmolality Lactic Acid F/U @ 2Hr 3.1 H* Lactic Acid F/U @ 4Hr Calcium Phosphorus Magnesium Total Bilirubin AST ALT Alkaline Phosphatase Total Creatine Kinase Troponin I High Sens Total Protein Albumin Urine Color Urine Appearance Urine pH Ur Specific [place] Urine Protein Urine Glucose (UA) Urine Ketones Urine Blood Urine Nitrite Ur Leukocyte Esterase Urine RBC Urine WBC Ur Squamous Epith Cells Other Crystals Urine Bacteria Hyaline Casts Urine Opiates Screen Urine Fentanyl Screen Ur Barbiturates Screen Ur Phencyclidine Scrn Ur Amphetamines Screen U Benzodiazepines Scrn Urine Cocaine Screen U Marijuana (THC) Screen Ethylene Glycol Volat Analys Perform On Ethyl Alcohol Ethyl Alcohol mg/dL Ethyl Alcohol g/dL Methyl Alcohol Level Isopropyl Alc, Quant Acetone, Qual Acetone Level Influenza Type A (PCR) Influenza Type B (PCR) RSV RNA Qual (PCR) SARS-CoV-2 RNA (RT-PCR) 06/28/22 06/28/22 06/28/22 19:21 20:31 20:31 WBC RBC Hgb Hct MCV MCH MCHC RDW Plt Count MPV Immature Gran % (Auto) Neut % (Auto) Lymph % (Auto) [place] % (Auto) Eos % (Auto) Baso % (Auto) Lymph # (Auto) [place] # (Auto) Eos # (Auto) Baso # (Auto) Abs Immat Gran (auto) Absolute Neuts (auto) Absolute Nucleated RBC Nucleated RBC % (auto) Neutrophils % (Manual) Band Neutrophils % Lymphocytes % (Manual) Monocytes % (Manual) Metamyelocytes % Myelocytes % Abs Neuts (Manual) Lymphocytes # (Manual) Monocytes # (Manual) Metamyelocytes # Myelocytes # Toxic Vacuolation Dohle Bodies Platelet Estimate Large Platelets Plt Morphology Comment RBC Morphology Ovalocytes [place] Cells Acanthocytes (Spur) O2 Saturation ABG pH at Pt Temp ABG pCO2 at Pt Temp ABG pO2 at Pt Temp ABG HCO3 ABG Base Excess (Actual) VBG pH VBG pCO2 VBG pO2 VBG HCO3 VBG O2 Saturation VBG Base Excess Sodium Potassium Chloride Carbon Dioxide Anion Gap BUN Creatinine Estim Creat Clear Calc Estimated GFR POC Glucose Random Glucose Osmolality 352 H Cancelled Lactic Acid F/U @ 2Hr Lactic Acid F/U @ 4Hr 2.1 H* Calcium Phosphorus Magnesium Total Bilirubin AST ALT Alkaline Phosphatase Total Creatine Kinase Troponin I High Sens Total Protein Albumin Urine Color Urine Appearance Urine pH Ur Specific [place] Urine Protein Urine Glucose (UA) Urine Ketones Urine Blood Urine Nitrite Ur Leukocyte Esterase Urine RBC Urine WBC Ur Squamous Epith Cells Other Crystals Urine Bacteria Hyaline Casts Urine Opiates Screen Urine Fentanyl Screen Ur Barbiturates Screen Ur Phencyclidine Scrn Ur Amphetamines Screen U Benzodiazepines Scrn Urine Cocaine Screen U Marijuana (THC) Screen Ethylene Glycol Volat Analys Perform On Ethyl Alcohol Ethyl Alcohol mg/dL Ethyl Alcohol g/dL Methyl Alcohol Level Isopropyl Alc, Quant Acetone, Qual Acetone Level Influenza Type A (PCR) Influenza Type B (PCR) RSV RNA Qual (PCR) SARS-CoV-2 RNA (RT-PCR) 06/28/22 06/28/22 06/28/22 20:31 20:37 20:38 WBC RBC Hgb Hct MCV MCH MCHC RDW Plt Count MPV Immature Gran % (Auto) Neut % (Auto) Lymph % (Auto) [place] % (Auto) Eos % (Auto) Baso % (Auto) Lymph # (Auto) [place] # (Auto) Eos # (Auto) Baso # (Auto) Abs Immat Gran (auto) Absolute Neuts (auto) Absolute Nucleated RBC Nucleated RBC % (auto) Neutrophils % (Manual) Band Neutrophils % Lymphocytes % (Manual) Monocytes % (Manual) Metamyelocytes % Myelocytes % Abs Neuts (Manual) Lymphocytes # (Manual) Monocytes # (Manual) Metamyelocytes # Myelocytes # Toxic Vacuolation Dohle Bodies Platelet Estimate Large Platelets Plt Morphology Comment RBC Morphology Ovalocytes [place] Cells Acanthocytes (Spur) O2 Saturation ABG pH at Pt Temp ABG pCO2 at Pt Temp ABG pO2 at Pt Temp ABG HCO3 ABG Base Excess (Actual) VBG pH 7.21 L VBG pCO2 37 VBG pO2 46 VBG HCO3 15 L VBG O2 Saturation 66.0 VBG Base Excess -11.5 Sodium 149 H Potassium 4.3 Chloride 111 H Carbon Dioxide 14 L Anion Gap 28 H BUN 67 H Creatinine 3.63 H Estim Creat Clear Calc 13.4 Estimated GFR 12 POC Glucose Random Glucose 385 H* Osmolality Lactic Acid F/U @ 2Hr Lactic Acid F/U @ 4Hr Calcium 8.0 L D Phosphorus Magnesium Total Bilirubin AST ALT Alkaline Phosphatase Total Creatine Kinase Troponin I High Sens Total Protein Albumin Urine Color Urine Appearance Urine pH Ur Specific [place] Urine Protein Urine Glucose (UA) Urine Ketones Urine Blood Urine Nitrite Ur Leukocyte Esterase Urine RBC Urine WBC Ur Squamous Epith Cells Other Crystals Urine Bacteria Hyaline Casts Urine Opiates Screen Not Detected Urine Fentanyl Screen Not Detected Ur Barbiturates Screen Not Detected Ur Phencyclidine Scrn Not Detected Ur Amphetamines Screen Not Detected U Benzodiazepines Scrn Not Detected Urine Cocaine Screen Not Detected U Marijuana (THC) Screen Not Detected Ethylene Glycol Volat Analys Perform On Ethyl Alcohol < 10 Ethyl Alcohol mg/dL Ethyl Alcohol g/dL Methyl Alcohol Level Isopropyl Alc, Quant Acetone, Qual Acetone Level Influenza Type A (PCR) Influenza Type B (PCR) RSV RNA Qual (PCR) SARS-CoV-2 RNA (RT-PCR) 06/28/22 06/28/22 06/28/22 21:58 22:02 22:02 WBC RBC Hgb Hct MCV MCH MCHC RDW Plt Count MPV Immature Gran % (Auto) Neut % (Auto) Lymph % (Auto) [place] % (Auto) Eos % (Auto) Baso % (Auto) Lymph # (Auto) [place] # (Auto) Eos # (Auto) Baso # (Auto) Abs Immat Gran (auto) Absolute Neuts (auto) Absolute Nucleated RBC Nucleated RBC % (auto) Neutrophils % (Manual) Band Neutrophils % Lymphocytes % (Manual) Monocytes % (Manual) Metamyelocytes % Myelocytes % Abs Neuts (Manual) Lymphocytes # (Manual) Monocytes # (Manual) Metamyelocytes # Myelocytes # Toxic Vacuolation Dohle Bodies Platelet Estimate Large Platelets Plt Morphology Comment RBC Morphology Ovalocytes [place] Cells Acanthocytes (Spur) O2 Saturation ABG pH at Pt Temp ABG pCO2 at Pt Temp ABG pO2 at Pt Temp ABG HCO3 ABG Base Excess (Actual) VBG pH 7.37 VBG pCO2 34 VBG pO2 53 VBG HCO3 20 L VBG O2 Saturation 79.0 VBG Base Excess -3.9 Sodium Potassium Chloride Carbon Dioxide Anion Gap BUN Creatinine Estim Creat Clear Calc Estimated GFR POC Glucose Random Glucose Osmolality Lactic Acid F/U @ 2Hr Lactic Acid F/U @ 4Hr Calcium Phosphorus Magnesium Total Bilirubin AST ALT Alkaline Phosphatase Total Creatine Kinase Troponin I High Sens > 3600.0 H* D Total Protein Albumin Urine Color Urine Appearance Urine pH Ur Specific [place] Urine Protein Urine Glucose (UA) Urine Ketones Urine Blood Urine Nitrite Ur Leukocyte Esterase Urine RBC Urine WBC Ur Squamous Epith Cells Other Crystals Urine Bacteria Hyaline Casts Urine Opiates Screen Urine Fentanyl Screen Ur Barbiturates Screen Ur Phencyclidine Scrn Ur Amphetamines Screen U Benzodiazepines Scrn Urine Cocaine Screen U Marijuana (THC) Screen Ethylene Glycol Volat Analys Perform On WHOLE BLOOD Ethyl Alcohol Ethyl Alcohol mg/dL NONE DETECTED Ethyl Alcohol g/dL NONE DETECTED Methyl Alcohol Level NONE DETECTED Isopropyl Alc, Quant NONE DETECTED Acetone, Qual Acetone Level 33 H Influenza Type A (PCR) Influenza Type B (PCR) RSV RNA Qual (PCR) SARS-CoV-2 RNA (RT-PCR) 06/28/22 06/28/22 06/28/22 22:02 22:05 22:11 WBC RBC Hgb Hct MCV MCH MCHC RDW Plt Count MPV Immature Gran % (Auto) Neut % (Auto) Lymph % (Auto) [place] % (Auto) Eos % (Auto) Baso % (Auto) Lymph # (Auto) [place] # (Auto) Eos # (Auto) Baso # (Auto) Abs Immat Gran (auto) Absolute Neuts (auto) Absolute Nucleated RBC Nucleated RBC % (auto) Neutrophils % (Manual) Band Neutrophils % Lymphocytes % (Manual) Monocytes % (Manual) Metamyelocytes % Myelocytes % Abs Neuts (Manual) Lymphocytes # (Manual) Monocytes # (Manual) Metamyelocytes # Myelocytes # Toxic Vacuolation Dohle Bodies Platelet Estimate Large Platelets Plt Morphology Comment RBC Morphology Ovalocytes Ian Cells Acanthocytes (Spur) O2 Saturation ABG pH at Pt Temp ABG pCO2 at Pt Temp ABG pO2 at Pt Temp ABG HCO3 ABG Base Excess (Actual) VBG pH VBG pCO2 VBG pO2 VBG HCO3 VBG O2 Saturation VBG Base Excess Sodium 154 H Potassium 4.0 Chloride 109 H Carbon Dioxide 19 L Anion Gap 30 H BUN 69 H D Creatinine 3.86 H Estim Creat Clear Calc 12.6 Estimated GFR 11 POC Glucose Random Glucose 391 H* Osmolality Lactic Acid F/U @ 2Hr Lactic Acid F/U @ 4Hr Calcium 8.0 L Phosphorus 6.9 H Magnesium 1.6 Total Bilirubin 1.0 AST 300 H ALT 159 H Alkaline Phosphatase 54 Total Creatine Kinase Troponin I High Sens Total Protein 4.7 L D Albumin 2.9 L D Urine Color Urine Appearance Urine pH Ur Specific [place] Urine Protein Urine Glucose (UA) Urine Ketones Urine Blood Urine Nitrite Ur Leukocyte Esterase Urine RBC Urine WBC Ur Squamous Epith Cells Other Crystals Urine Bacteria Hyaline Casts Urine Opiates Screen Urine Fentanyl Screen Ur Barbiturates Screen Ur Phencyclidine Scrn Ur Amphetamines Screen U Benzodiazepines Scrn Urine Cocaine Screen U Marijuana (THC) Screen Ethylene Glycol NONE DETECTED Volat Analys Perform On Ethyl Alcohol Ethyl Alcohol mg/dL Ethyl Alcohol g/dL Methyl Alcohol Level Isopropyl Alc, Quant Acetone, Qual Acetone Level Influenza Type A (PCR) Influenza Type B (PCR) RSV RNA Qual (PCR) SARS-CoV-2 RNA (RT-PCR) 06/28/22 06/29/22 06/29/22 22:11 00:06 01:06 WBC RBC Hgb Hct MCV MCH MCHC RDW Plt Count MPV Immature Gran % (Auto) Neut % (Auto) Lymph % (Auto) [place] % (Auto) Eos % (Auto) Baso % (Auto) Lymph # (Auto) [place] # (Auto) Eos # (Auto) Baso # (Auto) Abs Immat Gran (auto) Absolute Neuts (auto) Absolute Nucleated RBC Nucleated RBC % (auto) Neutrophils % (Manual) Band Neutrophils % Lymphocytes % (Manual) Monocytes % (Manual) Metamyelocytes % Myelocytes % Abs Neuts (Manual) Lymphocytes # (Manual) Monocytes # (Manual) Metamyelocytes # Myelocytes # Toxic Vacuolation Dohle Bodies Platelet Estimate Large Platelets Plt Morphology Comment RBC Morphology Ovalocytes [place] Cells Acanthocytes (Spur) O2 Saturation ABG pH at Pt Temp ABG pCO2 at Pt Temp ABG pO2 at Pt Temp ABG HCO3 ABG Base Excess (Actual) VBG pH VBG pCO2 VBG pO2 VBG HCO3 VBG O2 Saturation VBG Base Excess Sodium Potassium Chloride Carbon Dioxide Anion Gap BUN Creatinine Estim Creat Clear Calc Estimated GFR POC Glucose 258 H 217 H Random Glucose Osmolality Lactic Acid F/U @ 2Hr Lactic Acid F/U @ 4Hr Calcium Phosphorus Magnesium Total Bilirubin AST ALT Alkaline Phosphatase Total Creatine Kinase Troponin I High Sens Total Protein Albumin Urine Color Urine Appearance Urine pH Ur Specific [place] Urine Protein Urine Glucose (UA) Urine Ketones Urine Blood Urine Nitrite Ur Leukocyte Esterase Urine RBC Urine WBC Ur Squamous Epith Cells Other Crystals Urine Bacteria Hyaline Casts Urine Opiates Screen Urine Fentanyl Screen Ur Barbiturates Screen Ur Phencyclidine Scrn Ur Amphetamines Screen U Benzodiazepines Scrn Urine Cocaine Screen U Marijuana (THC) Screen Ethylene Glycol Volat Analys Perform On WHOLE BLOOD Ethyl Alcohol Ethyl Alcohol mg/dL Ethyl Alcohol g/dL Methyl Alcohol Level NONE DETECTED Isopropyl Alc, Quant Acetone, Qual Acetone Level Influenza Type A (PCR) Influenza Type B (PCR) RSV RNA Qual (PCR) SARS-CoV-2 RNA (RT-PCR) 06/29/22 06/29/22 06/29/22 01:59 03:07 04:00 WBC 23.4 H RBC 4.36 Hgb 12.4 Hct 36.5 L MCV 83.7 D MCH 28.4 MCHC 34.0 RDW 13.9 Plt Count 383 MPV 10.4 Immature Gran % (Auto) Cancelled Neut % (Auto) Cancelled Lymph % (Auto) Cancelled [place] % (Auto) Cancelled Eos % (Auto) Cancelled Baso % (Auto) Cancelled Lymph # (Auto) Cancelled [place] # (Auto) Cancelled Eos # (Auto) Cancelled Baso # (Auto) Cancelled Abs Immat Gran (auto) Cancelled Absolute Neuts (auto) Cancelled Absolute Nucleated RBC 0.030 H Nucleated RBC % (auto) 0.1 Neutrophils % (Manual) 50 Band Neutrophils % 25 H Lymphocytes % (Manual) 16 L Monocytes % (Manual) 5 Metamyelocytes % 3 Myelocytes % 1 Abs Neuts (Manual) 17.6 H Lymphocytes # (Manual) 3.7 Monocytes # (Manual) 1.2 Metamyelocytes # 0.7 Myelocytes # 0.2 Toxic Vacuolation PRESENT Dohle Bodies PRESENT Platelet Estimate NORMAL Large Platelets PRESENT Plt Morphology Comment NORMAL RBC Morphology NOTED Ovalocytes 1+ (5-14) [place] Cells 3+ (>5) Acanthocytes (Spur) 1+ (0-2) O2 Saturation ABG pH at Pt Temp ABG pCO2 at Pt Temp ABG pO2 at Pt Temp ABG HCO3 ABG Base Excess (Actual) VBG pH VBG pCO2 VBG pO2 VBG HCO3 VBG O2 Saturation VBG Base Excess Sodium Potassium Chloride Carbon Dioxide Anion Gap BUN Creatinine Estim Creat Clear Calc Estimated GFR POC Glucose 200 H 175 H Random Glucose Osmolality Lactic Acid F/U @ 2Hr Lactic Acid F/U @ 4Hr Calcium Phosphorus Magnesium Total Bilirubin AST ALT Alkaline Phosphatase Total Creatine Kinase Troponin I High Sens Total Protein Albumin Urine Color Urine Appearance Urine pH Ur Specific [place] Urine Protein Urine Glucose (UA) Urine Ketones Urine Blood Urine Nitrite Ur Leukocyte Esterase Urine RBC Urine WBC Ur Squamous Epith Cells Other Crystals Urine Bacteria Hyaline Casts Urine Opiates Screen Urine Fentanyl Screen Ur Barbiturates Screen Ur Phencyclidine Scrn Ur Amphetamines Screen U Benzodiazepines Scrn Urine Cocaine Screen U Marijuana (THC) Screen Ethylene Glycol Volat Analys Perform On Ethyl Alcohol Ethyl Alcohol mg/dL Ethyl Alcohol g/dL Methyl Alcohol Level Isopropyl Alc, Quant Acetone, Qual Acetone Level Influenza Type A (PCR) Influenza Type B (PCR) RSV RNA Qual (PCR) SARS-CoV-2 RNA (RT-PCR) 06/29/22 06/29/22 06/29/22 04:00 04:00 04:00 WBC RBC Hgb Hct MCV MCH MCHC RDW Plt Count MPV Immature Gran % (Auto) Neut % (Auto) Lymph % (Auto) [place] % (Auto) Eos % (Auto) Baso % (Auto) Lymph # (Auto) [place] # (Auto) Eos # (Auto) Baso # (Auto) Abs Immat Gran (auto) Absolute Neuts (auto) Absolute Nucleated RBC Nucleated RBC % (auto) Neutrophils % (Manual) Band Neutrophils % Lymphocytes % (Manual) Monocytes % (Manual) Metamyelocytes % Myelocytes % Abs Neuts (Manual) Lymphocytes # (Manual) Monocytes # (Manual) Metamyelocytes # Myelocytes # Toxic Vacuolation Dohle Bodies Platelet Estimate Large Platelets Plt Morphology Comment RBC Morphology Ovalocytes [place] Cells Acanthocytes (Spur) O2 Saturation ABG pH at Pt Temp ABG pCO2 at Pt Temp ABG pO2 at Pt Temp ABG HCO3 ABG Base Excess (Actual) VBG pH 7.44 H VBG pCO2 37 VBG pO2 46 VBG HCO3 26 VBG O2 Saturation 74.0 VBG Base Excess 2.3 Sodium 137 Potassium 3.2 L Chloride 98 Carbon Dioxide 22 Anion Gap 20 BUN 20 H D Creatinine 1.52 H Estim Creat Clear Calc 32.0 Estimated GFR 33 POC Glucose Random Glucose 207 H Osmolality Lactic Acid F/U @ 2Hr Lactic Acid F/U @ 4Hr Calcium 8.1 L Phosphorus 3.1 Magnesium 1.6 Total Bilirubin 1.2 H AST 275 H ALT 161 H Alkaline Phosphatase 69 D Total Creatine Kinase 89920 H Troponin I High Sens > 3600.0 H* Total Protein 5.0 L Albumin 3.1 L Urine Color Urine Appearance Urine pH Ur Specific [place] Urine Protein Urine Glucose (UA) Urine Ketones Urine Blood Urine Nitrite Ur Leukocyte Esterase Urine RBC Urine WBC Ur Squamous Epith Cells Other Crystals Urine Bacteria Hyaline Casts Urine Opiates Screen Urine Fentanyl Screen Ur Barbiturates Screen Ur Phencyclidine Scrn Ur Amphetamines Screen U Benzodiazepines Scrn Urine Cocaine Screen U Marijuana (THC) Screen Ethylene Glycol Volat Analys Perform On Ethyl Alcohol Ethyl Alcohol mg/dL Ethyl Alcohol g/dL Methyl Alcohol Level Isopropyl Alc, Quant Acetone, Qual Acetone Level Influenza Type A (PCR) Influenza Type B (PCR) RSV RNA Qual (PCR) SARS-CoV-2 RNA (RT-PCR) 06/29/22 06/29/22 06/29/22 04:06 05:13 06:05 WBC RBC Hgb Hct MCV MCH MCHC RDW Plt Count MPV Immature Gran % (Auto) Neut % (Auto) Lymph % (Auto) [place] % (Auto) Eos % (Auto) Baso % (Auto) Lymph # (Auto) [place] # (Auto) Eos # (Auto) Baso # (Auto) Abs Immat Gran (auto) Absolute Neuts (auto) Absolute Nucleated RBC Nucleated RBC % (auto) Neutrophils % (Manual) Band Neutrophils % Lymphocytes % (Manual) Monocytes % (Manual) Metamyelocytes % Myelocytes % Abs Neuts (Manual) Lymphocytes # (Manual) Monocytes # (Manual) Metamyelocytes # Myelocytes # Toxic Vacuolation Dohle Bodies Platelet Estimate Large Platelets Plt Morphology Comment RBC Morphology Ovalocytes Ian Cells Acanthocytes (Spur) O2 Saturation ABG pH at Pt Temp ABG pCO2 at Pt Temp ABG pO2 at Pt Temp ABG HCO3 ABG Base Excess (Actual) VBG pH VBG pCO2 VBG pO2 VBG HCO3 VBG O2 Saturation VBG Base Excess Sodium Potassium Chloride Carbon Dioxide Anion Gap BUN Creatinine Estim Creat Clear Calc Estimated GFR POC Glucose 196 H 203 H 216 H Random Glucose Osmolality Lactic Acid F/U @ 2Hr Lactic Acid F/U @ 4Hr Calcium Phosphorus Magnesium Total Bilirubin AST ALT Alkaline Phosphatase Total Creatine Kinase Troponin I High Sens Total Protein Albumin Urine Color Urine Appearance Urine pH Ur Specific [place] Urine Protein Urine Glucose (UA) Urine Ketones Urine Blood Urine Nitrite Ur Leukocyte Esterase Urine RBC Urine WBC Ur Squamous Epith Cells Other Crystals Urine Bacteria Hyaline Casts Urine Opiates Screen Urine Fentanyl Screen Ur Barbiturates Screen Ur Phencyclidine Scrn Ur Amphetamines Screen U Benzodiazepines Scrn Urine Cocaine Screen U Marijuana (THC) Screen Ethylene Glycol Volat Analys Perform On Ethyl Alcohol Ethyl Alcohol mg/dL Ethyl Alcohol g/dL Methyl Alcohol Level Isopropyl Alc, Quant Acetone, Qual Acetone Level Influenza Type A (PCR) Influenza Type B (PCR) RSV RNA Qual (PCR) SARS-CoV-2 RNA (RT-PCR) 06/29/22 06/29/22 06/29/22 07:06 07:53 09:02 WBC RBC Hgb Hct MCV MCH MCHC RDW Plt Count MPV Immature Gran % (Auto) Neut % (Auto) Lymph % (Auto) [place] % (Auto) Eos % (Auto) Baso % (Auto) Lymph # (Auto) [place] # (Auto) Eos # (Auto) Baso # (Auto) Abs Immat Gran (auto) Absolute Neuts (auto) Absolute Nucleated RBC Nucleated RBC % (auto) Neutrophils % (Manual) Band Neutrophils % Lymphocytes % (Manual) Monocytes % (Manual) Metamyelocytes % Myelocytes % Abs Neuts (Manual) Lymphocytes # (Manual) Monocytes # (Manual) Metamyelocytes # Myelocytes # Toxic Vacuolation Dohle Bodies Platelet Estimate Large Platelets Plt Morphology Comment RBC Morphology Ovalocytes Ian Cells Acanthocytes (Spur) O2 Saturation ABG pH at Pt Temp ABG pCO2 at Pt Temp ABG pO2 at Pt Temp ABG HCO3 ABG Base Excess (Actual) VBG pH VBG pCO2 VBG pO2 VBG HCO3 VBG O2 Saturation VBG Base Excess Sodium Potassium Chloride Carbon Dioxide Anion Gap BUN Creatinine Estim Creat Clear Calc Estimated GFR POC Glucose 225 H 241 H 214 H Random Glucose Osmolality Lactic Acid F/U @ 2Hr Lactic Acid F/U @ 4Hr Calcium Phosphorus Magnesium Total Bilirubin AST ALT Alkaline Phosphatase Total Creatine Kinase Troponin I High Sens Total Protein Albumin Urine Color Urine Appearance Urine pH Ur Specific [place] Urine Protein Urine Glucose (UA) Urine Ketones Urine Blood Urine Nitrite Ur Leukocyte Esterase Urine RBC Urine WBC Ur Squamous Epith Cells Other Crystals Urine Bacteria Hyaline Casts Urine Opiates Screen Urine Fentanyl Screen Ur Barbiturates Screen Ur Phencyclidine Scrn Ur Amphetamines Screen U Benzodiazepines Scrn Urine Cocaine Screen U Marijuana (THC) Screen Ethylene Glycol Volat Analys Perform On Ethyl Alcohol Ethyl Alcohol mg/dL Ethyl Alcohol g/dL Methyl Alcohol Level Isopropyl Alc, Quant Acetone, Qual Acetone Level Influenza Type A (PCR) Influenza Type B (PCR) RSV RNA Qual (PCR) SARS-CoV-2 RNA (RT-PCR) 06/29/22 11:54 WBC RBC Hgb Hct MCV MCH MCHC RDW Plt Count MPV Immature Gran % (Auto) Neut % (Auto) Lymph % (Auto) [place] % (Auto) Eos % (Auto) Baso % (Auto) Lymph # (Auto) [place] # (Auto) Eos # (Auto) Baso # (Auto) Abs Immat Gran (auto) Absolute Neuts (auto) Absolute Nucleated RBC Nucleated RBC % (auto) Neutrophils % (Manual) Band Neutrophils % Lymphocytes % (Manual) Monocytes % (Manual) Metamyelocytes % Myelocytes % Abs Neuts (Manual) Lymphocytes # (Manual) Monocytes # (Manual) Metamyelocytes # Myelocytes # Toxic Vacuolation Dohle Bodies Platelet Estimate Large Platelets Plt Morphology Comment RBC Morphology Ovalocytes [place] Cells Acanthocytes (Spur) O2 Saturation ABG pH at Pt Temp ABG pCO2 at Pt Temp ABG pO2 at Pt Temp ABG HCO3 ABG Base Excess (Actual) VBG pH VBG pCO2 VBG pO2 VBG HCO3 VBG O2 Saturation VBG Base Excess Sodium Potassium Chloride Carbon Dioxide Anion Gap BUN Creatinine Estim Creat Clear Calc Estimated GFR POC Glucose 247 H Random Glucose Osmolality Lactic Acid F/U @ 2Hr Lactic Acid F/U @ 4Hr Calcium Phosphorus Magnesium Total Bilirubin AST ALT Alkaline Phosphatase Total Creatine Kinase Troponin I High Sens Total Protein Albumin Urine Color Urine Appearance Urine pH Ur Specific [place] Urine Protein Urine Glucose (UA) Urine Ketones Urine Blood Urine Nitrite Ur Leukocyte Esterase Urine RBC Urine WBC Ur Squamous Epith Cells Other Crystals Urine Bacteria Hyaline Casts Urine Opiates Screen Urine Fentanyl Screen Ur Barbiturates Screen Ur Phencyclidine Scrn Ur Amphetamines Screen U Benzodiazepines Scrn Urine Cocaine Screen U Marijuana (THC) Screen Ethylene Glycol Volat Analys Perform On Ethyl Alcohol Ethyl Alcohol mg/dL Ethyl Alcohol g/dL Methyl Alcohol Level Isopropyl Alc, Quant Acetone, Qual Acetone Level Influenza Type A (PCR) Influenza Type B (PCR) RSV RNA Qual (PCR) SARS-CoV-2 RNA (RT-PCR) Microbiology Microbiology Results: Microbiology 06/28/22 17:03 Urine clean catch - Urine ryan top Urine Culture - Preliminary No growth to date. Progress Note: A&P Assessment and plan (1) Acute renal failure: Status: Acute (2) Rhabdomyolysis: Status: Acute (3) Aspiration pneumonitis: Status: Acute (4) Elevated troponin: Status: Acute (5) Atherosclerotic cardiovascular disease: Status: Acute (6) Atrial flutter: Status: Acute (7) Type 2 diabetes mellitus with hyperglycemia: Status: Acute (8) Acute respiratory failure: Status: Acute Plan Assessment: Plan: Neuro: No acute issues. Underlying history of CVA. Cardiac: Elevated troponin, increased mildly from 1400 to 1600 on reference lab examination, not consistent with acute UT. underlying a flutter, restart rate control and anticoagulation as tolerated. Pulmonary: Acute respiratory failure requiring ventilatory support, continue to titrate off as tolerated. Renal: Acute renal failure with anuria, likely ATN from volume depletion. Now requiring hemodialysis support. Metabolic acidosis resolved with hemodialysis. Nephrology service care appreciated. Continue to monitor renal indices and urine output. Endo: No acute issues. GI: No acute issues. ID: Empirically covered with broad-spectrum antibiotics, though sepsis is unlikely. Hypotension, elevated lactate, and end-organ dysfunction is from intravascular volume depletion and acute renal failure. Heme/Onc: No acute issues. Psych: No acute issues. Miscellaneous: No acute issues. Prophylaxis: Heparin Diet: nothing by mouth Critical care time spent: 60 minutes Quality Stroke Does the patient have a stroke diagnosis?: No VTE Prior VTE?: No VTE Risk Level:: Medical - moderate - high VTE Device Contraindication: N/A - Device Ordered VTE Drug Contraindication: Treatment Not Tolerated
[2022-06-29] MEDS: Norepinephrine Bitartrate/D5W 8 MG/250 ML PLAST..BAG 12.81 MG IV (15:46)
[2022-06-29 16:57] LABS: Glucose, Whole Blood 244 mg/dL (60-115)
[2022-06-29] MEDS: fentaNYL citrate/PF 100 MCG/2 ML VIAL IVPUSH (19:45)
--- NOTE | 2022-06-29 19:47 | P.CONNP_ITS ---
History of Present Illness Reason for Consult Consult date: 06/29/22 Chief Complaint Chief complaint: fall critical History of Present Illness Narrative: 77-year-old lady underlying history of diabetes mellitus, a flutter on Eliquis, hypertension, CVA, CAD admitted on 06/28/2022 after patient sustained a mechanical fall and was on the floor for approximately 24 hours in her apartment, found by maintenance and brought to? ER by EMS.? On ER evaluation patient with acute renal failure, anuric, rhabdomyolysis with performed metabolic acidosis, admitted to the intensive care unit.? Nephrology has been consulted to assist in her clinical care during her current hospital stay Review of Systems Review of Systems Yes Unobtainable due to mental condition PMFSH Past Medical History Medical History Hypercholesterolemia Hypertension Insomnia Obesity (BMI 30.0-34.9) Osteoarthrosis Overweight (BMI 25.0-29.9) Primary osteoarthritis of left knee Second degree AV block Tobacco abuse Type 2 diabetes mellitus with hyperglycemia Family History Family History Father Cancer Mother Medical history unknown Brother Liver cancer Sister Hypertension COPD (chronic obstructive pulmonary disease) Surgical History Surgical History H/O breast reconstruction History of cholecystectomy History of hip replacement History of tonsillectomy Social History Social History Household Members: Significant Other Housing: Apartment Do you presently have visiting nurse or other home services: No Alcohol intake: former Patient Tobacco Use Status: Former Tobacco user Tobacco use type: Cigarette Cigarettes Per Day: 2 Smoked in Last 30 Days: Yes e-Cigarette/Vaping Use: Never Used Second Hand Smoke Exposure: No Use of substances other than those prescribed or required for medical reasons: No Currently Displaying Signs/Symptoms of Drug Intoxication Withdrawal: No Have you been hit, kicked, punched, or otherwise hurt by someone within the past year? If so, by whom?: No Do you feel safe in your current relationship?: Yes Advance Directives: No Advance Directives Information Provided: Yes Do you have thoughts of harming others: None Do you have a plan to hurt others: No Plan Recently lost weight without trying: No Patient : No : No service: No Current occupational status: retired Current occupation: Right Handed Cognitive needs: No Hearing needs: No Vision needs: Yes Meds Allergies Allergy/AdvReac Type Severity Reaction Status Date / Time No Known Allergies Allergy Verified 04/19/22 10:33 [No Known Allergies*] Active Medications: Current Medications Amiodarone HCl (Amiodarone Hcl 200 Mg Tablet) 200 mg PO BID [facility] Chlorhexidine Gluconate (Chlorhexidine Gluc Oral Rinse 15 Ml Mouthwash) 15 ml BUCCAL TID [facility] Last Admin: 06/29/22 14:49 Dose: 15 ml Dextrose (Dextrose 50 % 25 Gm/50 Ml Syringe) 25 gm IVPUSH Q30M PRN PRN Reason: Nursing Actions in Insulin Infusion Protocol Famotidine (Famotidine/Pf 20 Mg/2 Ml Vial) 20 mg IVPUSH DAILY [facility] Last Admin: 06/29/22 07:36 Dose: 20 mg Heparin Sodium (Porcine) (Heparin Sodium,Porcine 5,000 Unit/Ml Vial) 5,000 unit SUBCUT Q8H [facility] Last Admin: 06/29/22 18:07 Dose: 5,000 unit Propofol (Diprivan) 1,000 mg in 100 mls @ 0 mls/hr IVCONT .Q0M [facility]; Protocol Last Titration: 06/29/22 16:00 Dose: 30 mcg/kg/min, 13.66 mls/hr Norepinephrine Bitartrate (Levophed) 8 mg in 250 mls @ 0 mls/hr IV .Q0M [facility]; Protocol Last Titration: 06/29/22 18:11 Dose: 0.7 mcg/kg/min, 99.62 mls/hr Piperacillin Sod/Tazobactam (Sod 2.25 gm/ Sodium Chloride) 50 mls @ 100 mls/hr IV Q6H [facility] Last Infusion: 06/29/22 17:07 Dose: Infused Insulin Glargine (Insulin Glargine,Hum.Rec.Anlog 100 Unit/Ml 10 Ml Vial) 30 unit SUBCUT DAILY [facility] Last Admin: 06/29/22 08:02 Dose: 30 unit Insulin Human Lispro (Insulin Lispro 100 Unit/Ml 3 Ml Vial) 0 unit SUBCUT Q6H [facility]; Protocol Last Admin: 06/29/22 17:06 Dose: 4 unit Home Medications Medication Instructions Recorded Confirmed Last Taken Type clonazepam 1 mg tablet (Klonopin) 1 mg PO BID 07/16/20 06/28/22 Unknown History hydroxyzine HCl 25 mg tablet 25 mg PO BID PRN Anxiety 03/10/22 06/28/22 Unknown History cholestyramine-aspartame 4 gram 1 ea PO BID diarrhea 06/28/22 06/28/22 Unknown History oral powder (Cholestyramine Light) diclofenac sodium 1 % topical gel 4 g topical QID PRN Pain 06/28/22 06/28/22 Unknown History (Voltaren Arthritis Pain) glipizide 5 mg tablet 1 tab PO DAILY 06/28/22 06/28/22 Unknown History sertraline 100 mg tablet 1 tab PO DAILY 06/28/22 06/28/22 Unknown History Physical Exam Vital Signs: Last Vital Signs Temp 99.9 F 06/29/22 19:00 Pulse 75 06/29/22 19:00 Resp 30 H 06/29/22 19:00 BP 123/61 06/29/22 19:00 Pulse Ox 96 06/29/22 19:00 O2 Del Method 06/29/22 19:00 O2 Flow Rate 3 06/28/22 20:00 FiO2 30 06/29/22 19:27 BMI result Body Mass Index 31.5 Const Other: Intubated and Ventilated General: no acute distress Neck Neck: Yes supple Resp Auscultation: diminished lung sounds Cardio Rate: regular rate GI Palpation (GI): Soft to palpation Neuro Other: Sedated Results Lab Results 06/29/22 04:00 06/29/22 04:00 Lab results: Chemistry 06/28/22 06/28/22 06/28/22 13:59 20:31 22:02 Sodium 149 H 149 H 154 H Potassium 4.9 4.3 4.0 Carbon Dioxide 9 L* D 14 L 19 L BUN 62 H 67 H 69 H D Creatinine 3.64 H 3.63 H 3.86 H Calcium 9.3 8.0 L D 8.0 L Phosphorus 6.9 H 06/29/22 04:00 Sodium 137 Potassium 3.2 L Carbon Dioxide 22 BUN 20 H D Creatinine 1.52 H Calcium 8.1 L Phosphorus 3.1 Hematology 06/28/22 06/29/22 13:59 04:00 WBC 25.9 H 23.4 H Hgb 13.4 12.4 Plt Count 407 H D 383 Urinalysis 06/28/22 16:19 Urine Color Dark Yellow Urine Appearance Cloudy Urine pH 5.5 Ur Specific [place] >= 1.030 H Urine Protein 300 (3+) H Urine Glucose (UA) >=1000 H Urine Ketones 15 Urine Blood Large (3+) H Urine Nitrite Negative Ur Leukocyte Esterase Small (1+) H Urine RBC >20 H Urine WBC 21-50 H Ur Squamous Epith Cells 6-10 Hyaline Casts 0-2 Assessment and Plan (1) Acute renal failure: Status: Acute Plan JHONNY due to tubular injury secondary to myoglobin Oligo anuric needing emergent HD Acidosis and lytes acceptable May need HD tomorrow C/W rest of current management Shall monitor closely for renal recovery Time Spent With Patient Time: Total time managing care of this patient today ____ minutes. Procedures Date of Service Date of Service: 06/29/22
[2022-06-29] MEDS: Norepinephrine Bitartrate/D5W 8 MG/250 ML PLAST..BAG 28.46 MG IV (21:50)
[2022-06-29] MEDS: Amiodarone HCL 200 MG TABLET PO (22:04)
[2022-06-30] VITALS (35 sets, daily range): BP systolic 101–142; BP diastolic 55–72; PULSE 56–79; RESP 19–26; TEMP 35–37.7; O2SAT 96–99; BMI 35.0
[2022-06-30] LABS: Glucose, Whole Blood 249 mg/dL (60-115)
[2022-06-30] MEDS: propofoL 1,000 MG/100 ML VIAL 13.66 MG IVCONT ×4 (03:33→19:24)
[2022-06-30] MEDS: Heparin Sodium,Porcine 5,000 UNIT/ML VIAL 5000 UNIT SUBCUT ×3 (03:35→18:12)
[2022-06-30] MEDS: Piperacillin Sodium/Tazobactam 2.25 GM in 0.9 % Sodium Chloride 50 ML IV ×4 (04:56→22:59)
[2022-06-30 05:10] LABS: VBG Base Excess -2.4 mmol/L; VBG HCO3 20 mmol/L (22-26); VBG pCO2 29 mmHg; VBG pH 7.44 (7.32-7.43); VBG pO2 46 mmHg
[2022-06-30 05:22] LABS: Hematocrit 34.5 % (37.0-47.0); Hemoglobin 11.7 g/dl (12.0-16.0); Mean Corpuscular HGB Conc 33.9 g/dl (31.0-35.0); Mean Corpuscular Volume 85.4 fL (80.0-98.0); Mean Platelet Volume 10.8 fL (9.4-12.3); Platelet Count 330 X10*3/uL (160-400); Red Blood Count 4.04 X10*6/uL (4.20-5.50); Red Cell Distribution Width 14.2 % (11.0-16.0); WBC ABN SCTR FOR CBC 1
[2022-06-30 05:24] LABS: White Blood Count 19.5 X10*3/uL (4.8-10.8)
[2022-06-30 05:49] LABS: Albumin Level 2.8 g/dL (3.5-5.0); Anion Gap 23 (12-20); Blood Urea Nitrogen 38 mg/dL (9-16); Carbon Dioxide 19 mmol/L (22-29); Chloride 103 mmol/L (96-108); Creatinine Clr Calc Pharmacy 14.2; Estimated Glomerular Filt Rate 12; Glucose Random 221 mg/dL (60-115); Magnesium 2.7 mg/dL (1.6-2.6); Phosphorus 4.6 mg/dL (2.7-4.5); Potassium 4.6 mmol/L (3.3-5.1); Sodium 140 mmol/L (135-145)
[2022-06-30 05:51] LABS: Band Neutrophils Percent 17 % (3-5); Eosinophils Absolute Manual 0.2 X10*3/uL (0.0-0.4); Eosinophils Percent Manual 1 % (0-4); Lymphocytes Absolute Manual 2.5 X10*3/uL (1.2-4.9); Lymphocytes Percent Manual 13 % (20-40); Monocytes Absolute Manual 0.6 X10*3/uL (0.1-1.2); Monocytes Percent Manual 3 % (2-11); Neutrophils Absolute Manual 16.2 X10*3/uL (2.0-8.3); Neutrophils Percent Manual 66 % (45-73)
[2022-06-30 05:51] LABS: Glucose, Whole Blood 211 mg/dL (60-115)
[2022-06-30 05:53] LABS: Burr Cells 1+ (0-2) /OIF; Platelet Estimate NORMAL (NORMAL); Platelet Morphology Comment NORMAL; RBC Morphology NOTED; Toxic Vacuolation PRESENT
[2022-06-30 05:59] LABS: Venous Blood Gas Refer to POC result
[2022-06-30] MEDS: Insulin Lispro 100 UNIT/ML 3 ML VIAL SUBCUT ×3 (06:00→13:03)
--- NOTE | 2022-06-30 06:34 | PC.NURSE ---
assumed care 0 seddated on prop,absent cough and gag, PERRLA, unarousable to noxious stimuli. rr 30s SUSTAINABLE DEVELOPMENT POLICY ANALYST Raheel made aware new order for 100mcg fentynal with good effect. bp Stable on levo. pt aflutter on tele, no urine outpt all shif SUSTAINABLE DEVELOPMENT POLICY ANALYST raheel made aware. pt diaphoretic, personal care provided multiple times throughout shift. Small BM this shift.
[2022-06-30] MEDS: Amiodarone HCL 200 MG TABLET PO (07:26)
[2022-06-30] MEDS: Famotidine/PF 20 MG/2 ML VIAL IVPUSH (07:27)
[2022-06-30] MEDS: Chlorhexidine Gluc Oral Rinse 15 ML MOUTHWASH BUCCAL ×3 (07:27→22:57)
[2022-06-30] MEDS: Insulin Glargine,Hum.rec.anlog 100 UNIT/ML 10 ML VIAL 30 UNIT SUBCUT (07:27)
[2022-06-30] MEDS: Albumin Human 25 % 100 ML IV ×3 (08:58→19:30)
--- NOTE | 2022-06-30 10:07 | PM.PNNEP ---
Subjective Subjective Date of Service: 06/30/22 Interval history: Seen AM. Oligoanuric. All recent data reviewed. D/W daughter Physical Exam Vital Signs: Vital Signs: Last Vital Signs Temp 99.1 F 06/30/22 10:00 Pulse 70 06/30/22 10:00 Resp 21 H 06/30/22 10:00 BP 112/64 06/30/22 10:00 Pulse Ox 98 06/30/22 10:00 O2 Del Method 06/30/22 10:00 O2 Flow Rate 3 06/28/22 20:00 FiO2 30 06/30/22 10:00 BMI result Body Mass Index 35.0 Const: Other: Intubated Neck: Neck: Yes supple Resp: Auscultation: diminished lung sounds Cardio: Rate: regular rate GI: Palpation (GI): Soft to palpation Neuro: Other: Sedated Objective Data Labs 06/30/22 05:05 06/30/22 05:05 Labs: Laboratory Results - last 24 hr 06/28/22 06/28/22 06/28/22 22:00 22:02 22:11 WBC RBC Hgb Hct MCV MCH MCHC RDW Plt Count MPV Immature Gran % (Auto) Neut % (Auto) Lymph % (Auto) [place] % (Auto) Eos % (Auto) Baso % (Auto) Lymph # (Auto) [place] # (Auto) Eos # (Auto) Baso # (Auto) Abs Immat Gran (auto) Absolute Neuts (auto) Absolute Nucleated RBC Nucleated RBC % (auto) Neutrophils % (Manual) Band Neutrophils % Lymphocytes % (Manual) Monocytes % (Manual) Eosinophils % (Manual) Abs Neuts (Manual) Lymphocytes # (Manual) Monocytes # (Manual) Eosinophils # (Manual) Toxic Vacuolation Platelet Estimate Plt Morphology Comment RBC Morphology [place] Cells VBG pH VBG pCO2 VBG pO2 VBG HCO3 VBG O2 Saturation VBG Base Excess Sodium Potassium Chloride Carbon Dioxide Anion Gap BUN Creatinine Estim Creat Clear Calc Estimated GFR POC Glucose Random Glucose Calcium Phosphorus Magnesium Albumin Ethylene Glycol NONE DETECTED Methyl Alcohol Level NONE DETECTED Ref Lab Test Result SEE NOTE 06/29/22 06/29/22 06/29/22 04:00 11:54 16:49 WBC RBC Hgb Hct MCV MCH MCHC RDW Plt Count MPV Immature Gran % (Auto) Neut % (Auto) Lymph % (Auto) [place] % (Auto) Eos % (Auto) Baso % (Auto) Lymph # (Auto) [place] # (Auto) Eos # (Auto) Baso # (Auto) Abs Immat Gran (auto) Absolute Neuts (auto) Absolute Nucleated RBC Nucleated RBC % (auto) Neutrophils % (Manual) Band Neutrophils % Lymphocytes % (Manual) Monocytes % (Manual) Eosinophils % (Manual) Abs Neuts (Manual) Lymphocytes # (Manual) Monocytes # (Manual) Eosinophils # (Manual) Toxic Vacuolation Platelet Estimate Plt Morphology Comment RBC Morphology [place] Cells VBG pH VBG pCO2 VBG pO2 VBG HCO3 VBG O2 Saturation VBG Base Excess Sodium Potassium Chloride Carbon Dioxide Anion Gap BUN Creatinine Estim Creat Clear Calc Estimated GFR POC Glucose 247 H 244 H Random Glucose Calcium Phosphorus Magnesium Albumin Ethylene Glycol Methyl Alcohol Level Ref Lab Test Result SEE NOTE 06/29/22 06/30/22 06/30/22 23:55 05:03 05:05 WBC 19.5 H RBC 4.04 L Hgb 11.7 L Hct 34.5 L MCV 85.4 MCH 29.0 MCHC 33.9 RDW 14.2 Plt Count 330 MPV 10.8 Immature Gran % (Auto) Cancelled Neut % (Auto) Cancelled Lymph % (Auto) Cancelled [place] % (Auto) Cancelled Eos % (Auto) Cancelled Baso % (Auto) Cancelled Lymph # (Auto) Cancelled [place] # (Auto) Cancelled Eos # (Auto) Cancelled Baso # (Auto) Cancelled Abs Immat Gran (auto) Cancelled Absolute Neuts (auto) Cancelled Absolute Nucleated RBC 0.000 Nucleated RBC % (auto) 0.0 Neutrophils % (Manual) 66 Band Neutrophils % 17 H Lymphocytes % (Manual) 13 L Monocytes % (Manual) 3 Eosinophils % (Manual) 1 Abs Neuts (Manual) 16.2 H Lymphocytes # (Manual) 2.5 Monocytes # (Manual) 0.6 Eosinophils # (Manual) 0.2 Toxic Vacuolation PRESENT Platelet Estimate NORMAL Plt Morphology Comment NORMAL RBC Morphology NOTED Ian Cells 1+ (0-2) VBG pH 7.44 H VBG pCO2 29 VBG pO2 46 VBG HCO3 20 L VBG O2 Saturation 70.0 VBG Base Excess -2.4 Sodium Potassium Chloride Carbon Dioxide Anion Gap BUN Creatinine Estim Creat Clear Calc Estimated GFR POC Glucose 249 H Random Glucose Calcium Phosphorus Magnesium Albumin Ethylene Glycol Methyl Alcohol Level Ref Lab Test Result 06/30/22 06/30/22 05:05 05:42 WBC RBC Hgb Hct MCV MCH MCHC RDW Plt Count MPV Immature Gran % (Auto) Neut % (Auto) Lymph % (Auto) [place] % (Auto) Eos % (Auto) Baso % (Auto) Lymph # (Auto) [place] # (Auto) Eos # (Auto) Baso # (Auto) Abs Immat Gran (auto) Absolute Neuts (auto) Absolute Nucleated RBC Nucleated RBC % (auto) Neutrophils % (Manual) Band Neutrophils % Lymphocytes % (Manual) Monocytes % (Manual) Eosinophils % (Manual) Abs Neuts (Manual) Lymphocytes # (Manual) Monocytes # (Manual) Eosinophils # (Manual) Toxic Vacuolation Platelet Estimate Plt Morphology Comment RBC Morphology [place] Cells VBG pH VBG pCO2 VBG pO2 VBG HCO3 VBG O2 Saturation VBG Base Excess Sodium 140 Potassium 4.6 D Chloride 103 Carbon Dioxide 19 L Anion Gap 23 H BUN 38 H Creatinine 3.65 H Estim Creat Clear Calc 14.2 Estimated GFR 12 POC Glucose 211 H Random Glucose 221 H Calcium 8.0 L Phosphorus 4.6 H Magnesium 2.7 H Albumin 2.8 L Ethylene Glycol Methyl Alcohol Level Ref Lab Test Result Microbiology Microbiology Results: Microbiology 06/28/22 15:42 Blood - Venous Blood Culture - Preliminary No growth after 24 hours. 06/28/22 13:59 Blood - Venous Blood Culture - Preliminary No growth after 24 hours. 06/28/22 17:03 Urine clean catch - Urine ryan top Urine Culture - Preliminary No growth to date. Procedures Date of Service Date of Service: 06/30/22 Assessment & Plan Assessment and plan (1) Acute renal failure: Status: Acute Assessment and Plan: JHONNY due to tubular injury secondary to myoglobin Oligo anuric needing emergent HD; Shall dialyze again today Acidosis and lytes acceptable; C/W rest of current management Shall monitor closely for renal recovery; C/W rest of current supp mgt Progress Note: Quality Stroke Does the patient have a stroke diagnosis?: No
[2022-06-30 12:55] LABS: Glucose, Whole Blood 220 mg/dL (60-115)
[2022-06-30] MEDS: Heparin Sodium,Porcine 5,000 UNIT/ML VIAL 5000 UNIT INTRACATH (13:03)
--- NOTE | 2022-06-30 14:37 | P.PNCC_ITS ---
Subjective Subjective Date of Service: 06/30/22 Interval History: 77-year-old lady underlying history of diabetes mellitus, a flutter on Eliquis, hypertension, CVA, CAD admitted on 06/28/2022 after patient sustained a mechanical fall and was on the floor for approximately 24 hours in her a partment, found by maintenance and brought to ER by EMS. On ER evaluation patient with acute renal failure, anuric, rhabdomyolysis with performed metabolic acidosis, admitted to the intensive care unit. Patient required initiation of home urgent hemodialysis support secondary to overwhelming of ability for respiratory compensation, also requiring intubation and ventilatory support. Empirically covered with broad-spectrum antibiotics. Acidosis and pressor requirements improved with dialysis. Patient still remains anuric. No events overnight. FiO2 requirements improved. Critical Care Time (minutes): 45 Physical Exam Vital Signs: Vital Signs: Last Vital Signs Temp 99.0 F 06/30/22 14:00 Pulse 70 06/30/22 14:00 Resp 20 06/30/22 14:00 BP 122/66 06/30/22 14:00 Pulse Ox 97 06/30/22 14:00 O2 Del Method 06/30/22 14:00 O2 Flow Rate 3 06/28/22 20:00 FiO2 30 06/30/22 14:00 BMI result Body Mass Index 35.0 Const: General: no acute distress and other (Sedated on the vent) Eyes: Sclerae: sclerae normal EOM: EOMs intact bilaterally Neck: Neck: Yes no lymphadenopathy, Yes trachea midline and Yes supple Resp: Auscultation: clear to auscultation bilaterally Cardio: Rate: regular rate (Aflutter) Rhythm: regular rhythm Heart sounds: no gallops, no murmurs and no rubs GI: Palpation (GI): Soft to palpation and Other GI palpation findings present ( Nontender) Auscultation: normal bowel sounds Extrem: General: Yes no pedal edema, No clubbing, No cyanosis and Yes edema (1+ bilateral) Objective Data Labs 06/30/22 05:05 06/30/22 05:05 Labs: Laboratory Results - last 24 hr 06/28/22 06/29/22 06/29/22 22:00 04:00 16:49 WBC RBC Hgb Hct MCV MCH MCHC RDW Plt Count MPV Immature Gran % (Auto) Neut % (Auto) Lymph % (Auto) [place] % (Auto) Eos % (Auto) Baso % (Auto) Lymph # (Auto) [place] # (Auto) Eos # (Auto) Baso # (Auto) Abs Immat Gran (auto) Absolute Neuts (auto) Absolute Nucleated RBC Nucleated RBC % (auto) Neutrophils % (Manual) Band Neutrophils % Lymphocytes % (Manual) Monocytes % (Manual) Eosinophils % (Manual) Abs Neuts (Manual) Lymphocytes # (Manual) Monocytes # (Manual) Eosinophils # (Manual) Toxic Vacuolation Platelet Estimate Plt Morphology Comment RBC Morphology Ian Cells VBG pH VBG pCO2 VBG pO2 VBG HCO3 VBG O2 Saturation VBG Base Excess Sodium Potassium Chloride Carbon Dioxide Anion Gap BUN Creatinine Estim Creat Clear Calc Estimated GFR POC Glucose 244 H Random Glucose Calcium Phosphorus Magnesium Albumin Ref Lab Test Result SEE NOTE SEE NOTE 06/29/22 06/30/22 06/30/22 23:55 05:03 05:05 WBC 19.5 H RBC 4.04 L Hgb 11.7 L Hct 34.5 L MCV 85.4 MCH 29.0 MCHC 33.9 RDW 14.2 Plt Count 330 MPV 10.8 Immature Gran % (Auto) Cancelled Neut % (Auto) Cancelled Lymph % (Auto) Cancelled [place] % (Auto) Cancelled Eos % (Auto) Cancelled Baso % (Auto) Cancelled Lymph # (Auto) Cancelled [place] # (Auto) Cancelled Eos # (Auto) Cancelled Baso # (Auto) Cancelled Abs Immat Gran (auto) Cancelled Absolute Neuts (auto) Cancelled Absolute Nucleated RBC 0.000 Nucleated RBC % (auto) 0.0 Neutrophils % (Manual) 66 Band Neutrophils % 17 H Lymphocytes % (Manual) 13 L Monocytes % (Manual) 3 Eosinophils % (Manual) 1 Abs Neuts (Manual) 16.2 H Lymphocytes # (Manual) 2.5 Monocytes # (Manual) 0.6 Eosinophils # (Manual) 0.2 Toxic Vacuolation PRESENT Platelet Estimate NORMAL Plt Morphology Comment NORMAL RBC Morphology NOTED Ian Cells 1+ (0-2) VBG pH 7.44 H VBG pCO2 29 VBG pO2 46 VBG HCO3 20 L VBG O2 Saturation 70.0 VBG Base Excess -2.4 Sodium Potassium Chloride Carbon Dioxide Anion Gap BUN Creatinine Estim Creat Clear Calc Estimated GFR POC Glucose 249 H Random Glucose Calcium Phosphorus Magnesium Albumin Ref Lab Test Result 06/30/22 06/30/22 06/30/22 05:05 05:42 12:50 WBC RBC Hgb Hct MCV MCH MCHC RDW Plt Count MPV Immature Gran % (Auto) Neut % (Auto) Lymph % (Auto) [place] % (Auto) Eos % (Auto) Baso % (Auto) Lymph # (Auto) [place] # (Auto) Eos # (Auto) Baso # (Auto) Abs Immat Gran (auto) Absolute Neuts (auto) Absolute Nucleated RBC Nucleated RBC % (auto) Neutrophils % (Manual) Band Neutrophils % Lymphocytes % (Manual) Monocytes % (Manual) Eosinophils % (Manual) Abs Neuts (Manual) Lymphocytes # (Manual) Monocytes # (Manual) Eosinophils # (Manual) Toxic Vacuolation Platelet Estimate Plt Morphology Comment RBC Morphology [place] Cells VBG pH VBG pCO2 VBG pO2 VBG HCO3 VBG O2 Saturation VBG Base Excess Sodium 140 Potassium 4.6 D Chloride 103 Carbon Dioxide 19 L Anion Gap 23 H BUN 38 H Creatinine 3.65 H Estim Creat Clear Calc 14.2 Estimated GFR 12 POC Glucose 211 H 220 H Random Glucose 221 H Calcium 8.0 L Phosphorus 4.6 H Magnesium 2.7 H Albumin 2.8 L Ref Lab Test Result Microbiology Microbiology Results: Microbiology 06/28/22 17:03 Urine clean catch - Urine ryan top Urine Culture - Final 06/28/22 15:42 Blood - Venous Blood Culture - Preliminary No growth after 24 hours. 06/28/22 13:59 Blood - Venous Blood Culture - Preliminary No growth after 24 hours. Progress Note: A&P Assessment and plan (1) Acute respiratory failure: Status: Acute (2) Aspiration pneumonitis: Status: Acute (3) Acute renal failure: Status: Acute (4) Rhabdomyolysis: Status: Acute (5) Atrial flutter: Status: Acute (6) Type 2 diabetes mellitus with hyperglycemia: Status: Acute Plan Assessment: Plan: Neuro: No acute issues. Underlying history of CVA. Cardiac: Elevated troponin, increased mildly from 1400 to 1600 on reference lab examination, not consistent with acute [place]. Underlying Aflutter, restart rate control and Eliquis. Pulmonary: Acute respiratory failure requiring ventilatory support, continue to titrate off as tolerated. Renal: Acute renal failure with anuria, likely ATN from volume depletion. Now requiring hemodialysis support. Metabolic acidosis resolved with hemodialysis. Nephrology service care appreciated. Continue to monitor renal indices and urine output. Endo: No acute issues. GI: No acute issues. ID: Empirically covered with broad-spectrum antibiotics, though sepsis is unlikely. Hypotension, elevated lactate, and end-organ dysfunction is from intravascular volume depletion and acute renal failure. Heme/Onc: No acute issues. Psych: No acute issues. Miscellaneous: No acute issues. Prophylaxis: Eliquis Diet: nothing by mouth Critical care time spent: 45 minutes Quality Stroke Does the patient have a stroke diagnosis?: No VTE Prior VTE?: No VTE Risk Level:: Medical - moderate - high VTE Device Contraindication: N/A - Device Ordered VTE Drug Contraindication: Treatment Not Tolerated
[2022-06-30 18:13] LABS: Glucose, Whole Blood 142 mg/dL (60-115)
[2022-06-30] MEDS: Norepinephrine Bitartrate/D5W 8 MG/250 ML PLAST..BAG 8.54 MG IV (18:13)
[2022-07-01] VITALS (34 sets, daily range): BP systolic 95–157; BP diastolic 50–77; PULSE 47–92; RESP 13–24; TEMP 34.9–37.3; O2SAT 90–99; BMI 31.5
[2022-07-01] LABS: Glucose, Whole Blood 152 mg/dL (60-115)
[2022-07-01] MEDS: fentaNYL citrate/PF 100 MCG/2 ML VIAL 50 MCG IVPUSH (00:41)
[2022-07-01] MEDS: propofoL 1,000 MG/100 ML VIAL 13.66 MG IVCONT ×2 (01:30→06:13)
[2022-07-01] MEDS: Albumin Human 25 % 100 ML IV (01:49)
[2022-07-01] MEDS: Heparin Sodium,Porcine 5,000 UNIT/ML VIAL 5000 UNIT SUBCUT ×2 (01:53→18:13)
[2022-07-01] MEDS: DOPamine HCL/D5W 400 MG/250 ML PLAST..BAG 17.93 MG IVCONT (04:47)
[2022-07-01] MEDS: Piperacillin Sodium/Tazobactam 2.25 GM in 0.9 % Sodium Chloride 50 ML IV ×2 (04:57→11:28)
--- NOTE | 2022-07-01 05:00 | PC.NURSE ---
assumed care at 1900 intubated, weak cough and gag, pupils round and reactive, sedated on prop, bp stable on levo, aflutter on tele HR dropping low 50s It Application Support Analyst raheel made aware, hold PO amnio, pt heart rate continue to dip into 50s, and low 40s, prop decreased to 20 pt arousable not following commands or answering questions, Hr continues to dip into 40s, Raheel made aware, new order to start Dopamine see aug. levo paused, Hr aflutter 60s-70s, pt anuric throughout shift, bp 150 systolic after Dopa started, turned and repo q2 hours, bed bath provided
[2022-07-01 05:25] LABS: VBG Base Excess -1.9 mmol/L; VBG HCO3 20 mmol/L (22-26); VBG pCO2 29 mmHg; VBG pH 7.45 (7.32-7.43); VBG pO2 58 mmHg; Venous Blood Gas Refer to POC result
[2022-07-01 05:37] LABS: MANUAL DIFF FLAG NO
[2022-07-01 05:41] LABS: Glucose, Whole Blood 165 mg/dL (60-115)
[2022-07-01 05:41] LABS: Basophils Absolute Auto 0.1 X10*3/uL (0.0-0.2); Basophils Percent Auto 0.5 % (0-2); Eosinophils Absolute Auto 0.1 X10*3/uL (0.0-0.4); Eosinophils Percent Auto 0.7 % (0-4); Hematocrit 30.5 % (37.0-47.0); Hemoglobin 10.2 g/dl (12.0-16.0); Imm Gran Abs Auto 0.15 X10*3/uL (0.00-0.03); Imm Gran Pct Auto 1.1 % (0.0-0.4); Lymphocytes Absolute Auto 1.7 X10*3/uL (1.2-4.9); Lymphocytes Percent Auto 13.2 % (20-40); Mean Corpuscular HGB Conc 33.4 g/dl (31.0-35.0); Mean Corpuscular Hemoglobin 28.8 pg (27.0-33.0); Mean Corpuscular Volume 86.2 fL (80.0-98.0); Mean Platelet Volume 10.8 fL (9.4-12.3); Monocytes Absolute Auto 0.6 X10*3/uL (0.1-1.2); Monocytes Percent Auto 4.9 % (2-11); Neutrophils Absolute Auto 10.5 x10*3/uL (2.0-8.3); Neutrophils Percent Auto 79.6 % (45-73); Platelet Count 226 X10*3/uL (160-400); Red Blood Count 3.54 X10*6/uL (4.20-5.50); Red Cell Distribution Width 14.2 % (11.0-16.0); White Blood Count 13.2 X10*3/uL (4.8-10.8)
[2022-07-01 06:01] LABS: Albumin Level 4.1 g/dL (3.5-5.0); Anion Gap 23 (12-20); Blood Urea Nitrogen 34 mg/dL (9-16); Calcium 8.6 mg/dL (8.4-10.2); Carbon Dioxide 17 mmol/L (22-29); Chloride 104 mmol/L (96-108); Creatinine Clr Calc Pharmacy 14.9; Estimated Glomerular Filt Rate 12; Glucose Random 160 mg/dL (60-115); Magnesium 2.4 mg/dL (1.6-2.6); Phosphorus 4.4 mg/dL (2.7-4.5); Sodium 140 mmol/L (135-145)
--- NOTE | 2022-07-01 09:42 | MHC.CLN ---
F/U PT IS INTUBATED DISCUSSED AT ROUNDS WITH MD REMAINS NPO GOAL FOR TODAY IS TO EXTUBATE IF DIET TO START; RECOMMEND 1500DM 2GM NA MONITOR PO INTAKE CLOSELY
[2022-07-01 10:32] LABS: Glucose, Whole Blood 156 mg/dL (60-115)
[2022-07-01] MEDS: Haloperidol Lactate 5 MG/ML VIAL IVPUSH (11:28)
--- NOTE | 2022-07-01 11:43 | P.PNCC_ITS ---
Subjective Subjective Date of Service: 07/01/22 Interval History: 77-year-old lady underlying history of diabetes mellitus, a flutter on Eliquis, hypertension, CVA, CAD admitted on 06/28/2022 after patient sustained a mechanical fall and was on the floor for approximately 24 hours in her a partment, found by maintenance and brought to ER by EMS. On ER evaluation patient with acute renal failure, anuric, rhabdomyolysis with performed metabolic acidosis, admitted to the intensive care unit. Patient required initiation of home urgent hemodialysis support secondary to overwhelming of ability for respiratory compensation, also requiring intubation and ventilatory support. Empirically covered with broad-spectrum antibiotics. Acidosis and pressor requirements improved with dialysis. Patient still remains anuric. No events overnight. Extubated uneventfully this a.m.. After extubation with significant delirium component. Critical Care Time (minutes): 45 Physical Exam Vital Signs: Vital Signs: Last Vital Signs Temp 98.2 F 07/01/22 10:00 Pulse 64 07/01/22 10:00 Resp 18 07/01/22 10:00 BP 137/61 07/01/22 10:00 Pulse Ox 91 L 07/01/22 10:00 O2 Del Method 07/01/22 10:00 O2 Flow Rate 3.5 07/01/22 10:00 FiO2 30 07/01/22 09:00 BMI result Body Mass Index 31.5 Const: General: no acute distress, alert and awake Eyes: Sclerae: sclerae normal EOM: EOMs intact bilaterally Neck: Neck: Yes no lymphadenopathy, Yes trachea midline and Yes supple Resp: Effort & Inspection: normal respiratory effort and no respiratory distress Auscultation: clear to auscultation bilaterally Cardio: Rate: regular rate Rhythm: regular rhythm (AFlutter) Heart sounds: no gallops, no murmurs and no rubs GI: Palpation (GI): Soft to palpation and Other GI palpation findings present ( Nontender) Auscultation: normal bowel sounds Extrem: General: Yes no pedal edema, No clubbing and No cyanosis Objective Data Labs 07/01/22 05:24 07/01/22 05:24 Labs: Laboratory Results - last 24 hr 06/30/22 06/30/22 06/30/22 12:50 18:09 23:56 WBC RBC Hgb Hct MCV MCH MCHC RDW Plt Count MPV Immature Gran % (Auto) Neut % (Auto) Lymph % (Auto) [place] % (Auto) Eos % (Auto) Baso % (Auto) Lymph # (Auto) [place] # (Auto) Eos # (Auto) Baso # (Auto) Abs Immat Gran (auto) Absolute Neuts (auto) Absolute Nucleated RBC Nucleated RBC % (auto) VBG pH VBG pCO2 VBG pO2 VBG HCO3 VBG O2 Saturation VBG Base Excess Sodium Potassium Chloride Carbon Dioxide Anion Gap BUN Creatinine Estim Creat Clear Calc Estimated GFR POC Glucose 220 H 142 H 152 H Random Glucose Calcium Phosphorus Magnesium Albumin 07/01/22 07/01/22 07/01/22 05:18 05:24 05:24 WBC 13.2 H RBC 3.54 L Hgb 10.2 L Hct 30.5 L MCV 86.2 MCH 28.8 MCHC 33.4 RDW 14.2 Plt Count 226 D MPV 10.8 Immature Gran % (Auto) 1.1 H Neut % (Auto) 79.6 H Lymph % (Auto) 13.2 L [place] % (Auto) 4.9 Eos % (Auto) 0.7 Baso % (Auto) 0.5 Lymph # (Auto) 1.7 [place] # (Auto) 0.6 Eos # (Auto) 0.1 Baso # (Auto) 0.1 Abs Immat Gran (auto) 0.15 H Absolute Neuts (auto) 10.5 H Absolute Nucleated RBC 0.000 Nucleated RBC % (auto) 0.0 VBG pH 7.45 H VBG pCO2 29 VBG pO2 58 VBG HCO3 20 L VBG O2 Saturation 84.0 VBG Base Excess -1.9 Sodium 140 Potassium 4.0 Chloride 104 Carbon Dioxide 17 L Anion Gap 23 H BUN 34 H Creatinine 3.67 H Estim Creat Clear Calc 14.9 Estimated GFR 12 POC Glucose Random Glucose 160 H Calcium 8.6 D Phosphorus 4.4 Magnesium 2.4 Albumin 4.1 07/01/22 07/01/22 05:32 10:27 WBC RBC Hgb Hct MCV MCH MCHC RDW Plt Count MPV Immature Gran % (Auto) Neut % (Auto) Lymph % (Auto) [place] % (Auto) Eos % (Auto) Baso % (Auto) Lymph # (Auto) [place] # (Auto) Eos # (Auto) Baso # (Auto) Abs Immat Gran (auto) Absolute Neuts (auto) Absolute Nucleated RBC Nucleated RBC % (auto) VBG pH VBG pCO2 VBG pO2 VBG HCO3 VBG O2 Saturation VBG Base Excess Sodium Potassium Chloride Carbon Dioxide Anion Gap BUN Creatinine Estim Creat Clear Calc Estimated GFR POC Glucose 165 H 156 H Random Glucose Calcium Phosphorus Magnesium Albumin Microbiology Microbiology Results: Microbiology 06/28/22 15:42 Blood - Venous Blood Culture - Preliminary No growth after 48 hours. 06/28/22 13:59 Blood - Venous Blood Culture - Preliminary No growth after 48 hours. 06/28/22 17:03 Urine clean catch - Urine ryan top Urine Culture - Final Progress Note: A&P Assessment and plan (1) Acute renal failure: Status: Acute (2) Atrial flutter: Status: Acute (3) Delirium: Status: Acute (4) Type 2 diabetes mellitus with hyperglycemia: Status: Acute Plan Assessment: Plan: Neuro: hospital-acquired delirium secondary to underlying medical condition, continue to monitor clinically. Underlying history of CVA. Cardiac: Elevated troponin, increased mildly from 1400 to 1600 on reference lab examination, not consistent with acute [place]. Underlying Aflutter, continue rate control and Eliquis. Pulmonary: Acute respiratory failure requiring ventilatory support, extubated uneventfully this morning. Continue to titrate of supplemental oxyg en. Renal: Acute renal failure with anuria, likely ATN from volume depletion. Now requiring hemodialysis support. Metabolic acidosis resolved with hemodialysis. Nephrology service care appreciated. Continue to monitor renal indices and urine output. Endo: No acute issues. GI: No acute issues. ID: Empirically covered with broad-spectrum antibiotics, until cultures are finalized. Heme/Onc: No acute issues. Psych: No acute issues. Miscellaneous: No acute issues. Prophylaxis: Eliquis Diet: Pending swallow evaluation Critical care time spent: 45 minutes Quality Stroke Does the patient have a stroke diagnosis?: No VTE Prior VTE?: No VTE Risk Level:: Medical - moderate - high VTE Device Contraindication: N/A - Device Ordered VTE Drug Contraindication: Treatment Not Tolerated
[2022-07-01 12:13] LABS: Glucose, Whole Blood 166 mg/dL (60-115)
--- NOTE | 2022-07-01 12:15 | P.PNNP_ITS ---
Subjective Subjective Date of Service: 07/01/22 Interval history: seen and examined confused Physical Exam Vital Signs: Vital Signs: Last Vital Signs Temp 98.2 F 07/01/22 10:00 Pulse 64 07/01/22 10:00 Resp 18 07/01/22 10:00 BP 137/61 07/01/22 10:00 Pulse Ox 91 L 07/01/22 10:00 O2 Del Method 07/01/22 10:00 O2 Flow Rate 3.5 07/01/22 10:00 FiO2 30 07/01/22 09:00 BMI result Body Mass Index 31.5 Const: General: no acute distress HEENT: Head: Yes normocephalic and Yes atraumatic Neck: Neck: Yes supple Resp: Auscultation: diminished lung sounds Cardio: Heart sounds: S1 normal heart sound present and S2 normal heart sound present GI: Palpation (GI): Soft to palpation and nontender Extrem: General: No edema Objective Data Labs 07/01/22 05:24 07/01/22 05:24 Labs: Laboratory Results - last 24 hr 06/30/22 06/30/22 06/30/22 12:50 18:09 23:56 WBC RBC Hgb Hct MCV MCH MCHC RDW Plt Count MPV Immature Gran % (Auto) Neut % (Auto) Lymph % (Auto) [place] % (Auto) Eos % (Auto) Baso % (Auto) Lymph # (Auto) [place] # (Auto) Eos # (Auto) Baso # (Auto) Abs Immat Gran (auto) Absolute Neuts (auto) Absolute Nucleated RBC Nucleated RBC % (auto) VBG pH VBG pCO2 VBG pO2 VBG HCO3 VBG O2 Saturation VBG Base Excess Sodium Potassium Chloride Carbon Dioxide Anion Gap BUN Creatinine Estim Creat Clear Calc Estimated GFR POC Glucose 220 H 142 H 152 H Random Glucose Calcium Phosphorus Magnesium Albumin 07/01/22 07/01/22 07/01/22 05:18 05:24 05:24 WBC 13.2 H RBC 3.54 L Hgb 10.2 L Hct 30.5 L MCV 86.2 MCH 28.8 MCHC 33.4 RDW 14.2 Plt Count 226 D MPV 10.8 Immature Gran % (Auto) 1.1 H Neut % (Auto) 79.6 H Lymph % (Auto) 13.2 L [place] % (Auto) 4.9 Eos % (Auto) 0.7 Baso % (Auto) 0.5 Lymph # (Auto) 1.7 [place] # (Auto) 0.6 Eos # (Auto) 0.1 Baso # (Auto) 0.1 Abs Immat Gran (auto) 0.15 H Absolute Neuts (auto) 10.5 H Absolute Nucleated RBC 0.000 Nucleated RBC % (auto) 0.0 VBG pH 7.45 H VBG pCO2 29 VBG pO2 58 VBG HCO3 20 L VBG O2 Saturation 84.0 VBG Base Excess -1.9 Sodium 140 Potassium 4.0 Chloride 104 Carbon Dioxide 17 L Anion Gap 23 H BUN 34 H Creatinine 3.67 H Estim Creat Clear Calc 14.9 Estimated GFR 12 POC Glucose Random Glucose 160 H Calcium 8.6 D Phosphorus 4.4 Magnesium 2.4 Albumin 4.1 07/01/22 07/01/22 07/01/22 05:32 10:27 12:06 WBC RBC Hgb Hct MCV MCH MCHC RDW Plt Count MPV Immature Gran % (Auto) Neut % (Auto) Lymph % (Auto) [place] % (Auto) Eos % (Auto) Baso % (Auto) Lymph # (Auto) [place] # (Auto) Eos # (Auto) Baso # (Auto) Abs Immat Gran (auto) Absolute Neuts (auto) Absolute Nucleated RBC Nucleated RBC % (auto) VBG pH VBG pCO2 VBG pO2 VBG HCO3 VBG O2 Saturation VBG Base Excess Sodium Potassium Chloride Carbon Dioxide Anion Gap BUN Creatinine Estim Creat Clear Calc Estimated GFR POC Glucose 165 H 156 H 166 H Random Glucose Calcium Phosphorus Magnesium Albumin Microbiology Microbiology Results: Microbiology 06/28/22 15:42 Blood - Venous Blood Culture - Preliminary No growth after 48 hours. 06/28/22 13:59 Blood - Venous Blood Culture - Preliminary No growth after 48 hours. 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 Progress Note: Quality Stroke Does the patient have a stroke diagnosis?: No
--- NOTE | 2022-07-01 14:30 | MHC.CM.PN ---
Pt extubated today and on n/c O2. Delerium noted. Original d/c plan for a return to home w/family support however, this seems unlikely given her ICU stay. Will follow over the weekend for clinical improvement following extubation and reassess pt's needs on 07/04 with pt family
[2022-07-01] MEDS: Nystatin Oral Susp 500,000 UNIT/5 ML ORAL.SUSP 100000 UNIT BUCCAL ×2 (15:28→20:35)
[2022-07-01] MEDS: Acetaminophen 325 MG TABLET 650 MG PO ×2 (15:32→19:41)
[2022-07-01 16:50] LABS: Glucose, Whole Blood 173 mg/dL (60-115)
[2022-07-01] MEDS: Insulin Lispro 100 UNIT/ML 3 ML VIAL SUBCUT (17:45)
[2022-07-01] MEDS: fentaNYL citrate/PF 100 MCG/2 ML VIAL 25 MCG IVPUSH (18:12)
--- NOTE | 2022-07-01 19:45 | PC.NURSE ---
Assumed care at 07:00. Patient tolerated sedation vacation well. Was able to follow commands and was extubated about 10 am, and continued on 3 LPM without any further respirtory trouble. Passed bedside swallow eval. Was cleared to eat diabetic diet. This morning patient was delierious at first, and was only orineted to self initially, was expressing paranoid concerns, and MD was notified and 5 mg of haldol was given IV. Patient also had pulled out an IV and was trying to pull another, and was not redirectable this mornning, and required re-ordering of bilateral upper extremity soft limb restraints. Family was contacted and came in to attend patient at bedside with good effect, and restraints were also discontinued without further incident. Patient has had 6 BMs this shift. MD and COMPRESSOR OPERATOR PORTABLE aware. Patient also with generalized pain report, discussed with MD, new order for tylenol, administered with minimal effect. MD re-notified and new order for one-time 25 mcg of fentanyl administered with good effect. Patient does have generalized brusing and abrasions scattered throughout her left side of her body, upper and lower extremities, also maceration marco a-anally, and had scant bleeding from coccygeal area after wiping, and a foam was applied there. Patient blood pressure and HR tolerated weaning off dopamine gtt per MD. HR 50's-80's, atrial flutter on telemetry.
[2022-07-02] VITALS (18 sets, daily range): BP systolic 137–181; BP diastolic 63–84; PULSE 58–76; RESP 14–27; TEMP 36.4–36.9; O2SAT 94–98; BMI 33.5
--- NOTE | 2022-07-02 | ECG_ITS ---
Test Reason : aflutter Blood Pressure : / mmHG Vent. Rate : 062 BPM Atrial Rate : 278 BPM P-R Int : 000 ms QRS Dur : 090 ms QT Int : 528 ms P-R-T Axes : -28 -16 -25 degrees QTc Int : 535 ms Atrial flutter with variable A-V block Low voltage QRS Anterior infarct , age undetermined ST & T wave abnormality, consider lateral ischemia Prolonged QT Abnormal ECG When compared with ECG of 02-JUL-2022 13:25, Left bundle branch block is no longer Present Minimal criteria for Anterior infarct are now Present Referred By: Leland Stearns Electronically Signed By:Howie Steele
[2022-07-02 05:24] LABS: VBG HCO3 19 mmol/L (22-26); VBG pCO2 26 mmHg; VBG pH 7.46 (7.32-7.43); VBG pO2 60 mmHg
[2022-07-02 05:27] LABS: MANUAL DIFF FLAG NO
[2022-07-02 05:37] LABS: Basophils Absolute Auto 0.1 X10*3/uL (0.0-0.2); Basophils Percent Auto 0.9 % (0-2); Eosinophils Absolute Auto 0.2 X10*3/uL (0.0-0.4); Eosinophils Percent Auto 1.1 % (0-4); Hematocrit 35.3 % (37.0-47.0); Hemoglobin 11.9 g/dl (12.0-16.0); Imm Gran Abs Auto 0.34 X10*3/uL (0.00-0.03); Imm Gran Pct Auto 2.5 % (0.0-0.4); Lymphocytes Absolute Auto 1.6 X10*3/uL (1.2-4.9); Lymphocytes Percent Auto 11.6 % (20-40); Mean Corpuscular HGB Conc 33.7 g/dl (31.0-35.0); Mean Corpuscular Hemoglobin 28.5 pg (27.0-33.0); Mean Corpuscular Volume 84.7 fL (80.0-98.0); Mean Platelet Volume 10.8 fL (9.4-12.3); Monocytes Absolute Auto 0.7 X10*3/uL (0.1-1.2); Monocytes Percent Auto 5.3 % (2-11); Neutrophils Absolute Auto 10.8 x10*3/uL (2.0-8.3); Neutrophils Percent Auto 78.6 % (45-73); Platelet Count 264 X10*3/uL (160-400); Red Blood Count 4.17 X10*6/uL (4.20-5.50); Red Cell Distribution Width 14.1 % (11.0-16.0); White Blood Count 13.7 X10*3/uL (4.8-10.8)
[2022-07-02 06:07] LABS: Albumin Level 3.5 g/dL (3.5-5.0); Anion Gap 25 (12-20); Blood Urea Nitrogen 62 mg/dL (9-16); Calcium 8.7 mg/dL (8.4-10.2); Carbon Dioxide 16 mmol/L (22-29); Chloride 92 mmol/L (96-108); Creatinine Clr Calc Pharmacy 10.5; Estimated Glomerular Filt Rate 8; Glucose Random 224 mg/dL (60-115); Magnesium 2.1 mg/dL (1.6-2.6); Phosphorus 5.4 mg/dL (2.7-4.5); Potassium 3.6 mmol/L (3.3-5.1); Sodium 127 mmol/L (135-145)
[2022-07-02 06:17] LABS: Venous Blood Gas Refer to POC result
[2022-07-02 07:38] LABS: Glucose, Whole Blood 215 mg/dL (60-115)
[2022-07-02] MEDS: Insulin Lispro 100 UNIT/ML 3 ML VIAL SUBCUT ×4 (08:11→20:11)
[2022-07-02] MEDS: Insulin Glargine,Hum.rec.anlog 100 UNIT/ML 10 ML VIAL 30 UNIT SUBCUT (08:11)
[2022-07-02] MEDS: Amiodarone HCL 200 MG TABLET PO (08:12)
--- NOTE | 2022-07-02 08:40 | ECG_ITS ---
Test Reason : chest pain Blood Pressure : / mmHG Vent. Rate : 065 BPM Atrial Rate : 278 BPM P-R Int : 000 ms QRS Dur : 094 ms QT Int : 422 ms P-R-T Axes : 240 043 019 degrees QTc Int : 438 ms Atrial flutter with variable A-V block with premature ventricular or aberrantly conducted complexes Minimal voltage criteria for LVH, may be normal variant ( [place] product ) Anteroseptal infarct (cited on or before 01-FEB-2022) Abnormal ECG When compared with ECG of 28-JUN-2022 23:24, Vent. rate has decreased BY 36 BPM Nonspecific T wave abnormality, improved in Anterolateral leads Referred By: Daryl Yoo Electronically Signed By:Howie Steele
[2022-07-02] MEDS: fentaNYL citrate/PF 100 MCG/2 ML VIAL 25 MCG IVPUSH (08:45)
--- NOTE | 2022-07-02 09:37 | PM.PNNEP ---
Subjective Subjective Date of Service: 07/02/22 Interval history: seen and examined discussed with ICU attending no complaints Physical Exam Vital Signs: Vital Signs: Last Vital Signs Temp 98.2 F 07/02/22 08:00 Pulse 69 07/02/22 09:00 Resp 26 H 07/02/22 09:00 BP 171/84 H 07/02/22 09:00 Pulse Ox 97 07/02/22 09:00 O2 Del Method 07/02/22 09:00 O2 Flow Rate 3 07/02/22 07:00 FiO2 30 07/01/22 09:00 BMI result Body Mass Index 33.5 Const: General: no acute distress HEENT: Head: Yes normocephalic and Yes atraumatic Neck: Neck: Yes supple Resp: Auscultation: diminished lung sounds Cardio: Heart sounds: S1 normal heart sound present and S2 normal heart sound present GI: Palpation (GI): Soft to palpation and nontender Extrem: General: No edema Objective Data Labs 07/02/22 05:17 07/02/22 05:17 Labs: Laboratory Results - last 24 hr 07/01/22 07/01/22 07/01/22 10:27 12:06 16:45 WBC RBC Hgb Hct MCV MCH MCHC RDW Plt Count MPV Immature Gran % (Auto) Neut % (Auto) Lymph % (Auto) [place] % (Auto) Eos % (Auto) Baso % (Auto) Lymph # (Auto) [place] # (Auto) Eos # (Auto) Baso # (Auto) Abs Immat Gran (auto) Absolute Neuts (auto) Absolute Nucleated RBC Nucleated RBC % (auto) VBG pH VBG pCO2 VBG pO2 VBG HCO3 VBG O2 Saturation VBG Base Excess Sodium Potassium Chloride Carbon Dioxide Anion Gap BUN Creatinine Estim Creat Clear Calc Estimated GFR POC Glucose 156 H 166 H 173 H Random Glucose Calcium Phosphorus Magnesium Albumin 07/02/22 07/02/22 07/02/22 05:17 05:17 05:17 WBC 13.7 H RBC 4.17 L Hgb 11.9 L Hct 35.3 L MCV 84.7 MCH 28.5 MCHC 33.7 RDW 14.1 Plt Count 264 MPV 10.8 Immature Gran % (Auto) 2.5 H Neut % (Auto) 78.6 H Lymph % (Auto) 11.6 L [place] % (Auto) 5.3 Eos % (Auto) 1.1 Baso % (Auto) 0.9 Lymph # (Auto) 1.6 [place] # (Auto) 0.7 Eos # (Auto) 0.2 Baso # (Auto) 0.1 Abs Immat Gran (auto) 0.34 H Absolute Neuts (auto) 10.8 H Absolute Nucleated RBC 0.000 Nucleated RBC % (auto) 0.0 VBG pH 7.46 H VBG pCO2 26 VBG pO2 60 VBG HCO3 19 L VBG O2 Saturation 87.0 VBG Base Excess -3.0 Sodium 127 L Potassium 3.6 Chloride 92 L Carbon Dioxide 16 L Anion Gap 25 H BUN 62 H Creatinine 5.06 H* Estim Creat Clear Calc 10.5 Estimated GFR 8 POC Glucose Random Glucose 224 H Calcium 8.7 Phosphorus 5.4 H Magnesium 2.1 Albumin 3.5 07/02/22 07:33 WBC RBC Hgb Hct MCV MCH MCHC RDW Plt Count MPV Immature Gran % (Auto) Neut % (Auto) Lymph % (Auto) [place] % (Auto) Eos % (Auto) Baso % (Auto) Lymph # (Auto) [place] # (Auto) Eos # (Auto) Baso # (Auto) Abs Immat Gran (auto) Absolute Neuts (auto) Absolute Nucleated RBC Nucleated RBC % (auto) VBG pH VBG pCO2 VBG pO2 VBG HCO3 VBG O2 Saturation VBG Base Excess Sodium Potassium Chloride Carbon Dioxide Anion Gap BUN Creatinine Estim Creat Clear Calc Estimated GFR POC Glucose 215 H Random Glucose Calcium Phosphorus Magnesium Albumin Microbiology Microbiology Results: Microbiology 06/28/22 15:42 Blood - Venous Blood Culture - Preliminary No growth after 48 hours. 06/28/22 13:59 Blood - Venous Blood Culture - Preliminary No growth after 48 hours. 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 Progress Note: Quality Stroke Does the patient have a stroke diagnosis?: No
[2022-07-02] MEDS: amLODIPine Besylate 10 MG TABLET PO (10:01)
[2022-07-02] MEDS: Heparin Sodium,Porcine 5,000 UNIT/ML VIAL 5000 UNIT SUBCUT (10:01)
--- NOTE | 2022-07-02 10:01 | P.PNCC_ITS ---
Subjective Subjective Date of Service: 07/02/22 Interval History: 77-year-old lady underlying history of diabetes mellitus, a flutter on Eliquis, hypertension, CVA, CAD admitted on 06/28/2022 after patient sustained a mechanical fall and was on the floor for approximately 24 hours in her a partment, found by maintenance and brought to ER by EMS. On ER evaluation patient with acute renal failure, anuric, rhabdomyolysis with performed metabolic acidosis, admitted to the intensive care unit. Patient required initiation of home urgent hemodialysis support secondary to overwhelming of ability for respiratory compensation, also requiring intubation and ventilatory support. Empirically covered with broad-spectrum antibiotics. Acidosis and pressor requirements improved with dialysis. Patient still remains anuric. No events overnight.Delirium is improving. Still is anuric. Critical Care Time (minutes): 0 Physical Exam Vital Signs: Vital Signs: Last Vital Signs Temp 98.2 F 07/02/22 08:00 Pulse 61 07/02/22 10:00 Resp 22 H 07/02/22 10:00 BP 171/84 H 07/02/22 10:00 Pulse Ox 94 07/02/22 10:00 O2 Del Method 07/02/22 10:00 O2 Flow Rate 3 07/02/22 07:00 FiO2 30 07/01/22 09:00 BMI result Body Mass Index 33.5 Const: General: no acute distress, alert and awake Eyes: Sclerae: sclerae normal EOM: EOMs intact bilaterally Neck: Neck: Yes no lymphadenopathy, Yes trachea midline and Yes supple Resp: Effort & Inspection: normal respiratory effort and no respiratory distress Auscultation: clear to auscultation bilaterally Cardio: Rate: regular rate Rhythm: regular rhythm (AFlutter) Heart sounds: no gallops, no murmurs and no rubs GI: Palpation (GI): Soft to palpation and Other GI palpation findings present ( Nontender) Auscultation: normal bowel sounds Extrem: General: No clubbing, No cyanosis and Yes edema ( Trace bilateral) Objective Data Labs 07/02/22 05:17 07/02/22 05:17 Labs: Laboratory Results - last 24 hr 07/01/22 07/01/22 07/01/22 10:27 12:06 16:45 WBC RBC Hgb Hct MCV MCH MCHC RDW Plt Count MPV Immature Gran % (Auto) Neut % (Auto) Lymph % (Auto) [place] % (Auto) Eos % (Auto) Baso % (Auto) Lymph # (Auto) [place] # (Auto) Eos # (Auto) Baso # (Auto) Abs Immat Gran (auto) Absolute Neuts (auto) Absolute Nucleated RBC Nucleated RBC % (auto) VBG pH VBG pCO2 VBG pO2 VBG HCO3 VBG O2 Saturation VBG Base Excess Sodium Potassium Chloride Carbon Dioxide Anion Gap BUN Creatinine Estim Creat Clear Calc Estimated GFR POC Glucose 156 H 166 H 173 H Random Glucose Calcium Phosphorus Magnesium Albumin 07/02/22 07/02/22 07/02/22 05:17 05:17 05:17 WBC 13.7 H RBC 4.17 L Hgb 11.9 L Hct 35.3 L MCV 84.7 MCH 28.5 MCHC 33.7 RDW 14.1 Plt Count 264 MPV 10.8 Immature Gran % (Auto) 2.5 H Neut % (Auto) 78.6 H Lymph % (Auto) 11.6 L [place] % (Auto) 5.3 Eos % (Auto) 1.1 Baso % (Auto) 0.9 Lymph # (Auto) 1.6 [place] # (Auto) 0.7 Eos # (Auto) 0.2 Baso # (Auto) 0.1 Abs Immat Gran (auto) 0.34 H Absolute Neuts (auto) 10.8 H Absolute Nucleated RBC 0.000 Nucleated RBC % (auto) 0.0 VBG pH 7.46 H VBG pCO2 26 VBG pO2 60 VBG HCO3 19 L VBG O2 Saturation 87.0 VBG Base Excess -3.0 Sodium 127 L Potassium 3.6 Chloride 92 L Carbon Dioxide 16 L Anion Gap 25 H BUN 62 H Creatinine 5.06 H* Estim Creat Clear Calc 10.5 Estimated GFR 8 POC Glucose Random Glucose 224 H Calcium 8.7 Phosphorus 5.4 H Magnesium 2.1 Albumin 3.5 07/02/22 07:33 WBC RBC Hgb Hct MCV MCH MCHC RDW Plt Count MPV Immature Gran % (Auto) Neut % (Auto) Lymph % (Auto) [place] % (Auto) Eos % (Auto) Baso % (Auto) Lymph # (Auto) [place] # (Auto) Eos # (Auto) Baso # (Auto) Abs Immat Gran (auto) Absolute Neuts (auto) Absolute Nucleated RBC Nucleated RBC % (auto) VBG pH VBG pCO2 VBG pO2 VBG HCO3 VBG O2 Saturation VBG Base Excess Sodium Potassium Chloride Carbon Dioxide Anion Gap BUN Creatinine Estim Creat Clear Calc Estimated GFR POC Glucose 215 H Random Glucose Calcium Phosphorus Magnesium Albumin Microbiology Microbiology Results: Microbiology 06/28/22 15:42 Blood - Venous Blood Culture - Preliminary No growth after 48 hours. 06/28/22 13:59 Blood - Venous Blood Culture - Preliminary No growth after 48 hours. 06/28/22 17:03 Urine clean catch - Urine ryan top Urine Culture - Final Progress Note: A&P Assessment and plan (1) JHONNY (acute kidney injury): Status: Acute (2) Acute respiratory failure: Status: Acute (3) History of CVA (cerebrovascular accident): Status: Acute (4) Atrial flutter: Status: Acute (5) Type 2 diabetes mellitus with hyperglycemia: Status: Acute Plan Assessment: 77-year-old lady with underlying diabetes mellitus, a aflutter, hypertension admitted with anuric acute renal failure requiring hemodialysis likely secondary to combination of rhabdomyolysis, intravascular volume depletion, arthrosclerotic disease on the background of falling down and laying on the floor for 24 hours, further complicated by profound metabolic acidosis requiring intubation and ventilatory support, now extubated Plan: Neuro: hospital-acquired delirium secondary to underlying medical condition, improved significantly, continue to monitor clinically. Underlying history of CVA. Cardiac: Elevated troponin, increased mildly from 1400 to 1600 on reference lab examination, not consistent with acute PR. Underlying Aflutter, continue r ate control and Eliquis. Pulmonary: Acute respiratory failure requiring ventilatory support, ext ubated on 07/01/2022. Continue to titrate of supplemental oxygen. Renal: Acute renal failure with anuria, likely ATN from volume depletion. Now requiring hemodialysis support. Metabolic acidosis resolved with hemodialysis. Nephrology service care appreciated. Continue to monitor renal indices and urine output. Endo: No acute issues. GI: No acute issues. ID: no acute issues. Initially covered with broad-spectrum antibiotics, now discontinued after cultures finalized. Heme/Onc: No acute issues. Psych: No acute issues. Miscellaneous: No acute issues. Prophylaxis: Eliquis Diet: Diabetic At this time patient is stable for transfer to telemetry [place]. Quality Stroke Does the patient have a stroke diagnosis?: No VTE Prior VTE?: No VTE Risk Level:: Medical - moderate - high VTE Device Contraindication: N/A - Device Ordered VTE Drug Contraindication: Treatment Not Tolerated
[2022-07-02] MEDS: Midazolam HCl/PF 2 MG/2 ML VIAL 0.5 MG IVPUSH (11:21)
[2022-07-02 12:18] LABS: Glucose, Whole Blood 157 mg/dL (60-115)
[2022-07-02] MEDS: Loperamide HCl Oral Liquid 2 MG/15 ML LIQUID 4 MG PO (12:21)
[2022-07-02] MEDS: clonazePAM 0.5 MG TABLET PO (12:21)
--- NOTE | 2022-07-02 13:24 | ECG_ITS ---
Test Reason : rhythm check Blood Pressure : / mmHG Vent. Rate : 071 BPM Atrial Rate : 300 BPM P-R Int : 000 ms QRS Dur : 178 ms QT Int : 502 ms P-R-T Axes : 265 -53 117 degrees QTc Int : 545 ms Atrial flutter Left axis deviation Left bundle branch block Abnormal ECG When compared with ECG of 02-JUL-2022 08:46, Left bundle branch block is now Present Referred By: Daryl Yoo Electronically Signed By:Howie Steele
[2022-07-02 15:11] LABS: Anion Gap 25 (12-20); Blood Urea Nitrogen 31 mg/dL (9-16); Calcium 9.2 mg/dL (8.4-10.2); Carbon Dioxide 16 mmol/L (22-29); Chloride 97 mmol/L (96-108); Creatinine Clr Calc Pharmacy 17.6; Estimated Glomerular Filt Rate 15; Glucose Random 158 mg/dL (60-115); Potassium 4.2 mmol/L (3.3-5.1); Sodium 134 mmol/L (135-145)
[2022-07-02 16:10] LABS: Glucose, Whole Blood 274 mg/dL (60-115)
[2022-07-02] MEDS: Clopidogrel Bisulfate 75 MG TABLET PO (16:34)
[2022-07-02] MEDS: Aspirin Enteric Coated 81 MG TABLET.DR PO (16:34)
[2022-07-02] MEDS: Nitroglycerin 2 % Oint 1 GM Packet 1 INCH TRANSDERMA (16:34)
[2022-07-02 16:45] LABS: Troponin-I High Sensitivity 655.2 ng/L (<3.5-17.0)
--- NOTE | 2022-07-02 17:36 | PC.NURSE ---
Report taken from ICU nurse pt on the floor. Transfer completed assessment and incontinent care provided. Complaining of 10/10 chest pain. Provider notified at bedside trop, EKG performed. Med given as order. Trop resulted high provider notify. Safety precautions maintained. PHR maintained.
--- NOTE | 2022-07-02 17:58 | PM.EVENT ---
Event Note Date of Service: 07/02/22 Event Note: Patient complaining of 10/10 chest pain midsternal. EKG with signs of ischemia; reviewed with Cardiology. Given Plavix nitro paste and morphine. Not a candidate for acute intervention at this time. Medical management Time Spent With Patient Time: Total time managing care of this patient today ____ minutes.
[2022-07-02] MEDS: Morphine Sulfate 4 MG/ML CARTRIDGE 3 MG IVPUSH (18:23)
[2022-07-02 19:51] LABS: Glucose, Whole Blood 256 mg/dL (60-115)
[2022-07-02] MEDS: Apixaban 2.5 MG TABLET PO (20:11)
[2022-07-02] MEDS: Nystatin Oral Susp 500,000 UNIT/5 ML ORAL.SUSP 100000 UNIT BUCCAL (20:11)
[2022-07-03] VITALS: BP 140/64; PULSE 69; RESP 20; TEMP 36.1; O2SAT 94
[2022-07-03 03:19] VITALS: BP 158/75; PULSE 69; RESP 20; TEMP 36.6; O2SAT 97
[2022-07-03 06:43] LABS: Hematocrit 36.9 % (37.0-47.0); Hemoglobin 12.7 g/dl (12.0-16.0); Mean Corpuscular HGB Conc 34.4 g/dl (31.0-35.0); Mean Corpuscular Hemoglobin 28.2 pg (27.0-33.0); Mean Corpuscular Volume 81.8 fL (80.0-98.0); Mean Platelet Volume 10.3 fL (9.4-12.3); Platelet Count 322 X10*3/uL (160-400); Red Blood Count 4.51 X10*6/uL (4.20-5.50); Red Cell Distribution Width 13.6 % (11.0-16.0); White Blood Count 17.5 X10*3/uL (4.8-10.8)
[2022-07-03 07:11] LABS: Atypical Lymph Absolute Manual 0.2 x10*3/uL; Atypical Lymphs Percent Manual 1 % (0-6); Band Neutrophils Percent 8 % (3-5); Eosinophils Absolute Manual 1.1 X10*3/uL (0.0-0.4); Eosinophils Percent Manual 6 % (0-4); Lymphocytes Absolute Manual 1.4 X10*3/uL (1.2-4.9); Lymphocytes Percent Manual 8 % (20-40); Metamyelocytes Absolute 0.4 X10*3/uL; Metamyelocytes Percent 2 %; Monocytes Absolute Manual 0.9 X10*3/uL (0.1-1.2); Monocytes Percent Manual 5 % (2-11); Neutrophils Absolute Manual 13.7 X10*3/uL (2.0-8.3); Neutrophils Percent Manual 70 % (45-73)
[2022-07-03 07:12] LABS: Burr Cells 2+ (3-5) /OIF; Platelet Estimate NORMAL (NORMAL); Platelet Morphology Comment NORMAL; RBC Morphology NOTED
[2022-07-03] MEDS: amLODIPine Besylate 10 MG TABLET PO (07:34)
[2022-07-03 07:35] LABS: Glucose, Whole Blood 147 mg/dL (60-115)
[2022-07-03] MEDS: Nystatin Oral Susp 500,000 UNIT/5 ML ORAL.SUSP 100000 UNIT BUCCAL ×3 (07:35→20:43)
[2022-07-03] MEDS: Amiodarone HCL 200 MG TABLET PO (07:35)
[2022-07-03] MEDS: Apixaban 2.5 MG TABLET PO ×2 (07:35→20:44)
[2022-07-03] MEDS: Insulin Glargine,Hum.rec.anlog 100 UNIT/ML 10 ML VIAL 30 UNIT SUBCUT (07:35)
[2022-07-03 07:38] LABS: Albumin Level 3.3 g/dL (3.5-5.0); Anion Gap 20 (12-20); Blood Urea Nitrogen 49 mg/dL (9-16); Calcium 8.9 mg/dL (8.4-10.2); Carbon Dioxide 20 mmol/L (22-29); Chloride 93 mmol/L (96-108); Creatinine Clr Calc Pharmacy 12.7; Estimated Glomerular Filt Rate 10; Glucose Random 139 mg/dL (60-115); Magnesium 1.9 mg/dL (1.6-2.6); Phosphorus 5.7 mg/dL (2.7-4.5); Potassium 4.1 mmol/L (3.3-5.1); Sodium 129 mmol/L (135-145)
[2022-07-03 08:00] VITALS: BP 175/83; PULSE 69; RESP 20; TEMP 36.5; O2SAT 97
--- NOTE | 2022-07-03 08:45 | PM.PNNEP ---
Subjective Subjective Date of Service: 07/03/22 Interval history: seen and examined had HD yesterday daughter at bedside updated feels weak Physical Exam Vital Signs: Vital Signs: Last Vital Signs Temp 97.7 F 07/03/22 08:00 Pulse 69 07/03/22 08:00 Resp 20 07/03/22 08:00 BP 175/83 H 07/03/22 08:00 Pulse Ox 97 07/03/22 08:00 O2 Del Method 07/03/22 08:00 O2 Flow Rate 3 07/02/22 07:00 FiO2 30 07/01/22 09:00 BMI result Body Mass Index 33.5 Const: General: no acute distress HEENT: Head: Yes normocephalic and Yes atraumatic Neck: Neck: Yes supple Resp: Auscultation: diminished lung sounds Cardio: Heart sounds: S1 normal heart sound present and S2 normal heart sound present GI: Palpation (GI): Soft to palpation and nontender Extrem: General: No edema Objective Data Labs 07/03/22 06:21 07/03/22 06:22 Labs: Laboratory Results - last 24 hr 07/02/22 07/02/22 07/02/22 12:14 14:29 15:51 WBC RBC Hgb Hct MCV MCH MCHC RDW Plt Count MPV Immature Gran % (Auto) Neut % (Auto) Lymph % (Auto) [place] % (Auto) Eos % (Auto) Baso % (Auto) Lymph # (Auto) [place] # (Auto) Eos # (Auto) Baso # (Auto) Abs Immat Gran (auto) Absolute Neuts (auto) Absolute Nucleated RBC Nucleated RBC % (auto) Neutrophils % (Manual) Band Neutrophils % Lymphocytes % (Manual) Atypical Lymphs % (Man) Monocytes % (Manual) Eosinophils % (Manual) Metamyelocytes % Abs Neuts (Manual) Lymphocytes # (Manual) Atyp Lymphs # (Manual) Monocytes # (Manual) Eosinophils # (Manual) Metamyelocytes # Platelet Estimate Plt Morphology Comment RBC Morphology [place] Cells Sodium 134 L Potassium 4.2 Chloride 97 Carbon Dioxide 16 L Anion Gap 25 H BUN 31 H Creatinine 3.04 H Estim Creat Clear Calc 17.6 Estimated GFR 15 POC Glucose 157 H Random Glucose 158 H Calcium 9.2 Phosphorus Magnesium 2.0 Total Creatine Kinase Troponin I High Sens 655.2 H* D Albumin 01/07/02/22 07/03/22 16:01 19:48 06:21 WBC 17.5 H RBC 4.51 Hgb 12.7 Hct 36.9 L MCV 81.8 MCH 28.2 MCHC 34.4 RDW 13.6 Plt Count 322 MPV 10.3 Immature Gran % (Auto) Cancelled Neut % (Auto) Cancelled Lymph % (Auto) Cancelled [place] % (Auto) Cancelled Eos % (Auto) Cancelled Baso % (Auto) Cancelled Lymph # (Auto) Cancelled [place] # (Auto) Cancelled Eos # (Auto) Cancelled Baso # (Auto) Cancelled Abs Immat Gran (auto) Cancelled Absolute Neuts (auto) Cancelled Absolute Nucleated RBC 0.000 Nucleated RBC % (auto) 0.0 Neutrophils % (Manual) 70 Band Neutrophils % 8 H Lymphocytes % (Manual) 8 L Atypical Lymphs % (Man) 1 Monocytes % (Manual) 5 Eosinophils % (Manual) 6 H Metamyelocytes % 2 Abs Neuts (Manual) 13.7 H Lymphocytes # (Manual) 1.4 Atyp Lymphs # (Manual) 0.2 Monocytes # (Manual) 0.9 Eosinophils # (Manual) 1.1 H Metamyelocytes # 0.4 Platelet Estimate NORMAL Plt Morphology Comment NORMAL RBC Morphology NOTED [place] Cells 2+ (3-5) Sodium Potassium Chloride Carbon Dioxide Anion Gap BUN Creatinine Estim Creat Clear Calc Estimated GFR POC Glucose 274 H 256 H Random Glucose Calcium Phosphorus Magnesium Total Creatine Kinase Troponin I High Sens Albumin 07/03/22 07/03/22 06:22 07:28 WBC RBC Hgb Hct MCV MCH MCHC RDW Plt Count MPV Immature Gran % (Auto) Neut % (Auto) Lymph % (Auto) [place] % (Auto) Eos % (Auto) Baso % (Auto) Lymph # (Auto) [place] # (Auto) Eos # (Auto) Baso # (Auto) Abs Immat Gran (auto) Absolute Neuts (auto) Absolute Nucleated RBC Nucleated RBC % (auto) Neutrophils % (Manual) Band Neutrophils % Lymphocytes % (Manual) Atypical Lymphs % (Man) Monocytes % (Manual) Eosinophils % (Manual) Metamyelocytes % Abs Neuts (Manual) Lymphocytes # (Manual) Atyp Lymphs # (Manual) Monocytes # (Manual) Eosinophils # (Manual) Metamyelocytes # Platelet Estimate Plt Morphology Comment RBC Morphology [place] Cells Sodium 129 L Potassium 4.1 Chloride 93 L Carbon Dioxide 20 L Anion Gap 20 BUN 49 H Creatinine 4.20 H* Estim Creat Clear Calc 12.7 Estimated GFR 10 POC Glucose 147 H Random Glucose 139 H Calcium 8.9 Phosphorus 5.7 H Magnesium 1.9 Total Creatine Kinase 1086 H Troponin I High Sens Albumin 3.3 L Microbiology Microbiology Results: Microbiology 06/28/22 15:42 Blood - Venous Blood Culture - Preliminary No growth after 48 hours. 06/28/22 13:59 Blood - Venous Blood Culture - Preliminary No growth after 48 hours. 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 Progress Note: Quality Stroke Does the patient have a stroke diagnosis?: No
[2022-07-03] MEDS: Nitroglycerin 2 % Oint 1 GM Packet 1 INCH TRANSDERMA (10:31)
[2022-07-03 11:24] LABS: Glucose, Whole Blood 318 mg/dL (60-115)
--- NOTE | 2022-07-03 11:27 | PM.CNCAR ---
History of Present Illness History of Present Illness Date of Service: 07/03/22 Requesting physician: Leland Stearns Chief complaint: NSTEMI Narrative: 77-year-old female who presented to the hospital after fall and rhabdomyolysis. She had acute kidney injury and required hemodialysis. She is still oliguric and not making significant amount of urine and requiring dialysis. On admission she had high sensitivity troponin levels drawn which were more than 3600. She has background of atrial flutter and was on Eliquis. She had echocardiogram performed which showed apical akinesis with differentials of multivessel disease versus takotsubo cardiomyopathy. Patient did not complain of any chest discomfort earlier. Her EKG on admission also showed anterolateral ST elevations in 1 of the ECGs which evolved into T-wave inversions. She still has biphasic T-waves precordial E and also had EKG which showed new left bundle-branch block. She started complaining of some chest discomfort last night while she was on the floor. She has been downgraded from ICU recently. Given the fact that she was on Eliquis already she was not given heparin but after discussion Plavix was added. Patient is complaining of a sharp sensation on the left side of her chest. She is saying it hurts sometimes when she breathes in but the area is not tender to touch. My discussion with Hospital Medicine has been that she has been vague in describing her overall symptoms. As mentioned she is still on hemodialysis. [facility] Past Medical History Medical History Hypercholesterolemia Hypertension Insomnia Obesity (BMI 30.0-34.9) Osteoarthrosis Overweight (BMI 25.0-29.9) Primary osteoarthritis of left knee Second degree AV block Tobacco abuse Type 2 diabetes mellitus with hyperglycemia Family History Family History Father Cancer Mother Medical history unknown Brother Liver cancer Sister Hypertension COPD (chronic obstructive pulmonary disease) Surgical History Surgical History H/O breast reconstruction History of cholecystectomy History of hip replacement History of tonsillectomy Social History Social History Household Members: Significant Other Housing: Apartment Do you presently have visiting nurse or other home services: No Alcohol intake: former Patient Tobacco Use Status: Former Tobacco user Tobacco use type: Cigarette Cigarettes Per Day: 2 e-Cigarette/Vaping Use: Never Used Second Hand Smoke Exposure: No service: No Current occupational status: retired Current occupation: Right Handed Cognitive needs: No Hearing needs: No Vision needs: Yes Meds Allergies Allergy/AdvReac Type Severity Reaction Status Date / Time No Known Allergies Allergy Verified 04/19/22 10:33 [No Known Allergies*] Active Medications: Current Medications Acetaminophen (Acetaminophen 325 Mg Tablet) 650 mg PO Q6H PRN PRN Reason: Pain, Moderate (Pain Scale 4-6 Last Admin: 07/01/22 19:41 Dose: 650 mg Amiodarone HCl (Amiodarone Hcl 200 Mg Tablet) 200 mg PO DAILY [facility] Last Admin: 07/03/22 07:35 Dose: 200 mg Amlodipine Besylate (Amlodipine Besylate 10 Mg Tablet) 10 mg PO DAILY [facility]; Protocol Last Admin: 07/03/22 07:34 Dose: 10 mg Apixaban (Apixaban 2.5 Mg Tablet) 2.5 mg PO BID [facility] Last Admin: 07/03/22 07:35 Dose: 2.5 mg Clonazepam (Clonazepam 0.5 Mg Tablet) 0.5 mg PO TID PRN PRN Reason: Anxiety Last Admin: 07/02/22 12:21 Dose: 0.5 mg Dextrose (Dextrose 50 % 25 Gm/50 Ml Syringe) 25 gm IVPUSH Q30M PRN PRN Reason: Nursing Actions in Insulin Infusion Protocol Fentanyl (Fentanyl Citrate/Pf 100 Mcg/2 Ml Vial) 50 mcg IVPUSH Q2H PRN; Protocol PRN Reason: Ventilator synchrony Last Admin: 07/01/22 00:41 Dose: 50 mcg Insulin Glargine (Insulin Glargine,Hum.Rec.Anlog 100 Unit/Ml 10 Ml Vial) 30 unit SUBCUT DAILY [facility] Last Admin: 07/03/22 07:35 Dose: 30 unit Insulin Human Lispro (Insulin Lispro 100 Unit/Ml 3 Ml Vial) 0.1 - 10 unit SUBCUT QIDACHS [facility]; Protocol Last Admin: 07/03/22 07:31 Dose: Not Given Loperamide HCl (Loperamide Hcl Oral Liquid 2 Mg/15 Ml Liquid) 4 mg PO Q6H PRN PRN Reason: Diarrhea Last Admin: 07/02/22 12:21 Dose: 4 mg Morphine Sulfate (Morphine Sulfate 4 Mg/Ml Cartridge) 3 mg IVPUSH Q3H PRN; Protocol PRN Reason: Pain, Severe (Pain Scale 7-10) Nitroglycerin (Nitroglycerin 0.4 Mg Tab.Subl) 0.4 mg SUBLINGUAL Q5MX3 PRN PRN Reason: Chest Pain Nitroglycerin (Nitroglycerin 2 % Oint 1 Gm Packet) 1 inch TRANSDERMA Q6H [facility] Last Admin: 07/03/22 10:31 Dose: 1 inch Nystatin (Nystatin Oral Susp 500,000 Unit/5 Ml Oral.Susp) 100,000 unit BUCCAL TID [facility]; Protocol Last Admin: 07/03/22 07:35 Dose: 100,000 unit Home Medications Medication Instructions Recorded Confirmed Last Taken Type clonazepam 1 mg tablet (Klonopin) 1 mg PO BID 07/16/20 06/28/22 Unknown History hydroxyzine HCl 25 mg tablet 25 mg PO BID PRN Anxiety 03/10/22 06/28/22 Unknown History cholestyramine-aspartame 4 gram 1 ea PO BID diarrhea 06/28/22 06/28/22 Unknown History oral powder (Cholestyramine Light) diclofenac sodium 1 % topical gel 4 g topical QID PRN Pain 06/28/22 06/28/22 Unknown History (Voltaren Arthritis Pain) glipizide 5 mg tablet 1 tab PO DAILY 06/28/22 06/28/22 Unknown History sertraline 100 mg tablet 1 tab PO DAILY 06/28/22 06/28/22 Unknown History Physical Exam Vital Signs: Vital Signs: Last Vital Signs Temp 97.7 F 07/03/22 08:00 Pulse 69 07/03/22 08:00 Resp 20 07/03/22 08:00 BP 175/83 H 07/03/22 08:00 Pulse Ox 97 07/03/22 08:00 O2 Del Method 07/03/22 08:00 O2 Flow Rate 3 07/02/22 07:00 FiO2 30 07/01/22 09:00 BMI result Body Mass Index 33.5 GENERAL APPEARANCE: in no acute distress. SKIN: no suspicious lesions, warm and dry. HEART: no murmurs, regular rate and rhythm. LUNGS: clear to auscultation bilaterally. No chest wall tenderness. ABDOMEN: soft, nontender. EXTREMITIES: no edema. PERIPHERAL PULSES: equal. NEUROLOGIC: No gross deficits, AAO X 3 Objective Labs and Meds 07/03/22 06:21 07/03/22 06:22 Lab results: Laboratory Results - last 24 hr 07/02/22 07/02/22 07/02/22 12:14 14:29 15:51 WBC RBC Hgb Hct MCV MCH MCHC RDW Plt Count MPV Immature Gran % (Auto) Neut % (Auto) Lymph % (Auto) [place] % (Auto) Eos % (Auto) Baso % (Auto) Lymph # (Auto) [place] # (Auto) Eos # (Auto) Baso # (Auto) Abs Immat Gran (auto) Absolute Neuts (auto) Absolute Nucleated RBC Nucleated RBC % (auto) Neutrophils % (Manual) Band Neutrophils % Lymphocytes % (Manual) Atypical Lymphs % (Man) Monocytes % (Manual) Eosinophils % (Manual) Metamyelocytes % Abs Neuts (Manual) Lymphocytes # (Manual) Atyp Lymphs # (Manual) Monocytes # (Manual) Eosinophils # (Manual) Metamyelocytes # Platelet Estimate Plt Morphology Comment RBC Morphology [place] Cells Sodium 134 L Potassium 4.2 Chloride 97 Carbon Dioxide 16 L Anion Gap 25 H BUN 31 H Creatinine 3.04 H Estim Creat Clear Calc 17.6 Estimated GFR 15 POC Glucose 157 H Random Glucose 158 H Calcium 9.2 Phosphorus Magnesium 2.0 Total Creatine Kinase Troponin I High Sens 655.2 H* D Albumin 07/02/22 07/02/22 07/03/22 16:01 19:48 06:21 WBC 17.5 H RBC 4.51 Hgb 12.7 Hct 36.9 L MCV 81.8 MCH 28.2 MCHC 34.4 RDW 13.6 Plt Count 322 MPV 10.3 Immature Gran % (Auto) Cancelled Neut % (Auto) Cancelled Lymph % (Auto) Cancelled [place] % (Auto) Cancelled Eos % (Auto) Cancelled Baso % (Auto) Cancelled Lymph # (Auto) Cancelled [place] # (Auto) Cancelled Eos # (Auto) Cancelled Baso # (Auto) Cancelled Abs Immat Gran (auto) Cancelled Absolute Neuts (auto) Cancelled Absolute Nucleated RBC 0.000 Nucleated RBC % (auto) 0.0 Neutrophils % (Manual) 70 Band Neutrophils % 8 H Lymphocytes % (Manual) 8 L Atypical Lymphs % (Man) 1 Monocytes % (Manual) 5 Eosinophils % (Manual) 6 H Metamyelocytes % 2 Abs Neuts (Manual) 13.7 H Lymphocytes # (Manual) 1.4 Atyp Lymphs # (Manual) 0.2 Monocytes # (Manual) 0.9 Eosinophils # (Manual) 1.1 H Metamyelocytes # 0.4 Platelet Estimate NORMAL Plt Morphology Comment NORMAL RBC Morphology NOTED [place] Cells 2+ (3-5) Sodium Potassium Chloride Carbon Dioxide Anion Gap BUN Creatinine Estim Creat Clear Calc Estimated GFR POC Glucose 274 H 256 H Random Glucose Calcium Phosphorus Magnesium Total Creatine Kinase Troponin I High Sens Albumin 07/03/22 07/03/22 07/03/22 06:22 07:28 11:10 WBC RBC Hgb Hct MCV MCH MCHC RDW Plt Count MPV Immature Gran % (Auto) Neut % (Auto) Lymph % (Auto) [place] % (Auto) Eos % (Auto) Baso % (Auto) Lymph # (Auto) [place] # (Auto) Eos # (Auto) Baso # (Auto) Abs Immat Gran (auto) Absolute Neuts (auto) Absolute Nucleated RBC Nucleated RBC % (auto) Neutrophils % (Manual) Band Neutrophils % Lymphocytes % (Manual) Atypical Lymphs % (Man) Monocytes % (Manual) Eosinophils % (Manual) Metamyelocytes % Abs Neuts (Manual) Lymphocytes # (Manual) Atyp Lymphs # (Manual) Monocytes # (Manual) Eosinophils # (Manual) Metamyelocytes # Platelet Estimate Plt Morphology Comment RBC Morphology [place] Cells Sodium 129 L Potassium 4.1 Chloride 93 L Carbon Dioxide 20 L Anion Gap 20 BUN 49 H Creatinine 4.20 H* Estim Creat Clear Calc 12.7 Estimated GFR 10 POC Glucose 147 H 318 H Random Glucose 139 H Calcium 8.9 Phosphorus 5.7 H Magnesium 1.9 Total Creatine Kinase 1086 H Troponin I High Sens Albumin 3.3 L Imaging Radiologist's impression: Impressions Chest X-Ray 07/02/22 16:17 IMPRESSION: 1. Interval extubation and removal of NG tube. 2. Low lung volumes with probable mild left basilar atelectasis. 3. No acute pulmonary process. 4. No evidence of pulmonary edema or pleural effusions. Assessment and Plan (1) JHONNY (acute kidney injury): Status: Acute (2) Atrial flutter: Status: Acute (3) NSTEMI (non-ST elevated myocardial infarction): Status: Acute Plan 77-year-old female who is presenting with fall and rhabdomyolysis with acute kidney injury requiring hemodialysis. On admission she had EKGs performed which have dynamic changes with anterolateral ST elevations and echocardiography showed apical wall motion abnormality with elevated biomarkers. A bio markers are difficult to explain purely from cardiovascular point of view given the fact that she had rhabdomyolysis which also leads to troponin elevation. She has complained of chest pain overnight and EKGs have shown biphasic T-waves in the precordial leads. I think this is just evolution of changes that were seen on admission. If this was an ischemic event this is at least 5-day-old at this stage. She is on Eliquis and I would not recommend giving her heparin because of increased risk of bleeding. Recommend adding Plavix to the regimen. She is extremely frail and weak right now and is having trouble moving her legs due to deconditioning. Also the fact that she has acute commencement of hemodialysis and it is unclear whether there will be any renal recovery or not I think giving her any contrast exposure can have consequences long-term. She is not complaining of any cardiac sounding chest pain to me right now. She is complaining of sharp left-sided chest discomfort which can be some pericarditis after acute coronary syndrome. She also has diarrhea right now also I would recommend not giving her colchicine. We will repeat limited echocardiogram on her tomorrow to see how the ejection fraction and wall motion appears. Blood pressure is elevated. She is already on amlodipine 10 mg daily. Would at 30 mg of isosorbide and consider stopping the nitro paste for now. Stop the amiodarone and put her on 25 mg b.i.d. of metoprolol tartrate. Thank you for allowing me to participate in the care of your patient. Please feel free to contact me if you have any questions. Time Spent With Patient Time: Total time managing care of this patient today ____ minutes. Procedures Date of Service Date of Service: 07/03/22
[2022-07-03 11:34] VITALS: BP 140/65; PULSE 68; RESP 20; TEMP 36.8; O2SAT 94
[2022-07-03] MEDS: Insulin Lispro 100 UNIT/ML 3 ML VIAL SUBCUT ×3 (11:48→20:44)
--- NOTE | 2022-07-03 13:11 | P.PNIM_ITS ---
Subjective Subjective Date of Service: 07/03/22 Interval History: Episodic 10/10 left-sided chest pain this a.m. similar to last evening. EKG reviewed with anterior changes. Given nitro paste and morphine with good results. Improved this a.m. Review of Systems Admits to intermittent chest pain Denies shortness of breath Denies nausea vomiting diarrhea Denies fever chills Physical Exam Vital Signs: Vital Signs: Last Vital Signs Temp 98.2 F 07/03/22 11:34 Pulse 68 07/03/22 11:34 Resp 20 07/03/22 11:34 BP 140/65 H 07/03/22 11:34 Pulse Ox 94 07/03/22 11:34 O2 Del Method 07/03/22 11:34 O2 Flow Rate 3 07/02/22 07:00 FiO2 30 07/01/22 09:00 BMI result Body Mass Index 33.5 Const: Other: Ill-appearing no acute distress Resp: Other: Diminished at bases but otherwise clear no rales rhonchi wheezes Cardio: Other: No S4; positive S1-S2; no S3 murmurs rubs or gallops Extrem: Other: Bilateral edema Objective Data Active Medications Acetaminophen (Acetaminophen 325 Mg Tablet) 650 mg PO Q6H PRN PRN Reason: Pain, Moderate (Pain Scale 4-6 Last Admin: 07/01/22 19:41 Dose: 650 mg Documented By: LUKAS Amiodarone HCl (Amiodarone Hcl 200 Mg Tablet) 200 mg PO DAILY [facility] Last Admin: 07/03/22 07:35 Dose: 200 mg Documented By: ELISA Amlodipine Besylate (Amlodipine Besylate 10 Mg Tablet) 10 mg PO DAILY [facility]; Protocol Last Admin: 07/03/22 07:34 Dose: 10 mg Documented By: ELISA Apixaban (Apixaban 2.5 Mg Tablet) 2.5 mg PO BID [facility] Last Admin: 07/03/22 07:35 Dose: 2.5 mg Documented By: ELISA Clonazepam (Clonazepam 0.5 Mg Tablet) 0.5 mg PO TID PRN PRN Reason: Anxiety Last Admin: 07/02/22 12:21 Dose: 0.5 mg Documented By: ELISA Clopidogrel Bisulfate (Clopidogrel Bisulfate 75 Mg Tablet) 75 mg PO DAILY [facility] Dextrose (Dextrose 50 % 25 Gm/50 Ml Syringe) 25 gm IVPUSH Q30M PRN PRN Reason: Nursing Actions in Insulin Infusion Protocol Fentanyl (Fentanyl Citrate/Pf 100 Mcg/2 Ml Vial) 50 mcg IVPUSH Q2H PRN; Protocol PRN Reason: Ventilator synchrony Last Admin: 07/01/22 00:41 Dose: 50 mcg Documented By: MARY Insulin Glargine (Insulin Glargine,Hum.Rec.Anlog 100 Unit/Ml 10 Ml Vial) 30 unit SUBCUT DAILY [facility] Last Admin: 07/03/22 07:35 Dose: 30 unit Documented By: ELISA Insulin Human Lispro (Insulin Lispro 100 Unit/Ml 3 Ml Vial) 0.1 - 10 unit SUBCUT QIDACHS [facility]; Protocol Last Admin: 07/03/22 11:48 Dose: 8 unit Documented By: ELISA Loperamide HCl (Loperamide Hcl Oral Liquid 2 Mg/15 Ml Liquid) 4 mg PO Q6H PRN PRN Reason: Diarrhea Last Admin: 07/02/22 12:21 Dose: 4 mg Documented By: ELISA Morphine Sulfate (Morphine Sulfate 4 Mg/Ml Cartridge) 3 mg IVPUSH Q3H PRN; Protocol PRN Reason: Pain, Severe (Pain Scale 7-10) Nitroglycerin (Nitroglycerin 0.4 Mg Tab.Subl) 0.4 mg SUBLINGUAL Q5MX3 PRN PRN Reason: Chest Pain Nystatin (Nystatin Oral Susp 500,000 Unit/5 Ml Oral.Susp) 100,000 unit BUCCAL TID [facility]; Protocol Last Admin: 07/03/22 07:35 Dose: 100,000 unit Documented By: ELISA Labs 07/03/22 06:21 07/03/22 06:22 Labs: Laboratory Results - last 24 hr 07/02/22 07/02/22 07/02/22 14:29 15:51 16:01 MCV MCH MCHC RDW Plt Count MPV Immature Gran % (Auto) Neut % (Auto) Lymph % (Auto) [place] % (Auto) Eos % (Auto) Baso % (Auto) Lymph # (Auto) [place] # (Auto) Eos # (Auto) Baso # (Auto) Abs Immat Gran (auto) Absolute Neuts (auto) Absolute Nucleated RBC Nucleated RBC % (auto) Neutrophils % (Manual) Band Neutrophils % Lymphocytes % (Manual) Atypical Lymphs % (Man) Monocytes % (Manual) Eosinophils % (Manual) Metamyelocytes % Abs Neuts (Manual) Lymphocytes # (Manual) Atyp Lymphs # (Manual) Monocytes # (Manual) Eosinophils # (Manual) Metamyelocytes # Platelet Estimate Plt Morphology Comment RBC Morphology [place] Cells Anion Gap 25 H Estim Creat Clear Calc 17.6 Estimated GFR 15 POC Glucose 274 H Random Glucose 158 H Calcium 9.2 Phosphorus Magnesium 2.0 Total Creatine Kinase Troponin I High Sens 655.2 H* D Albumin 07/02/22 07/03/22 07/03/22 19:48 06:21 06:22 MCV 81.8 MCH 28.2 MCHC 34.4 RDW 13.6 Plt Count 322 MPV 10.3 Immature Gran % (Auto) Cancelled Neut % (Auto) Cancelled Lymph % (Auto) Cancelled [place] % (Auto) Cancelled Eos % (Auto) Cancelled Baso % (Auto) Cancelled Lymph # (Auto) Cancelled [place] # (Auto) Cancelled Eos # (Auto) Cancelled Baso # (Auto) Cancelled Abs Immat Gran (auto) Cancelled Absolute Neuts (auto) Cancelled Absolute Nucleated RBC 0.000 Nucleated RBC % (auto) 0.0 Neutrophils % (Manual) 70 Band Neutrophils % 8 H Lymphocytes % (Manual) 8 L Atypical Lymphs % (Man) 1 Monocytes % (Manual) 5 Eosinophils % (Manual) 6 H Metamyelocytes % 2 Abs Neuts (Manual) 13.7 H Lymphocytes # (Manual) 1.4 Atyp Lymphs # (Manual) 0.2 Monocytes # (Manual) 0.9 Eosinophils # (Manual) 1.1 H Metamyelocytes # 0.4 Platelet Estimate NORMAL Plt Morphology Comment NORMAL RBC Morphology NOTED [place] Cells 2+ (3-5) Anion Gap 20 Estim Creat Clear Calc 12.7 Estimated GFR 10 POC Glucose 256 H Random Glucose 139 H Calcium 8.9 Phosphorus 5.7 H Magnesium 1.9 Total Creatine Kinase 1086 H Troponin I High Sens Albumin 3.3 L 07/03/22 07/03/22 07:28 11:10 MCV MCH MCHC RDW Plt Count MPV Immature Gran % (Auto) Neut % (Auto) Lymph % (Auto) [place] % (Auto) Eos % (Auto) Baso % (Auto) Lymph # (Auto) [place] # (Auto) Eos # (Auto) Baso # (Auto) Abs Immat Gran (auto) Absolute Neuts (auto) Absolute Nucleated RBC Nucleated RBC % (auto) Neutrophils % (Manual) Band Neutrophils % Lymphocytes % (Manual) Atypical Lymphs % (Man) Monocytes % (Manual) Eosinophils % (Manual) Metamyelocytes % Abs Neuts (Manual) Lymphocytes # (Manual) Atyp Lymphs # (Manual) Monocytes # (Manual) Eosinophils # (Manual) Metamyelocytes # Platelet Estimate Plt Morphology Comment RBC Morphology [place] Cells Anion Gap Estim Creat Clear Calc Estimated GFR POC Glucose 147 H 318 H Random Glucose Calcium Phosphorus Magnesium Total Creatine Kinase Troponin I High Sens Albumin Assessment and Plan (1) NSTEMI (non-ST elevated myocardial infarction): Status: Acute (2) Rhabdomyolysis: Status: Acute (3) Acute renal failure: Status: Acute Plan 77-year-old female presents emergency department after a fall in her bathroom any 24-36 hour down time. Patient found to have sodium 149 chloride 112; BUN creatinine 3.64; also noted to have a total CK of 32,000 and a troponin greater than 36,000. Was given volume in the ER along with empiric Zosyn for what appeared to be left upper lobe pneumonia on CT. She was found to be extremely acidotic and mildly hypotensive and was intubated for safety. 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 She was successfully extubated and transferred to the floor. Initially EKG with changes however patient was too unstable for any intervention. 1.NSTEMI -as per Cardiology; will treat conservatively with nitrates beta blockades Plavix and aspirin. -limited echo to assess LV function in a.m. -consideration for invasive imaging if condition worsens 2. Rhabdomyolysis -CK is 1000 this a.m. -continue to follow clinically 3. Pigment nephropathy requiring HD -as per Renal -follow renals/divalents -HD -- 4.HTN -acceptable control -follow response to cardiac medicine adjustments 5. Atrial flutter -acceptable rate control -continue Daryl Brito Full Code Patient requires ongoing hospitalization for hemodialysis treat pigment nephr opathy Time Spent With Patient Time: Total time managing care of this patient today ____ minutes. Quality Stroke Does the patient have a stroke diagnosis?: No VTE Prior VTE?: No VTE Risk Level:: Medical - moderate - high VTE Device Contraindication: N/A - Device Ordered VTE Drug Contraindication: Treatment Not Tolerated
[2022-07-03 15:36] VITALS: BP 156/72; PULSE 69; RESP 17; TEMP 36.4; O2SAT 94
[2022-07-03 15:43] LABS: Glucose, Whole Blood 253 mg/dL (60-115)
[2022-07-03] MEDS: clonazePAM 0.5 MG TABLET PO (15:45)
[2022-07-03] MEDS: Clopidogrel Bisulfate 75 MG TABLET PO (15:46)
[2022-07-03] MEDS: Isosorbide Mononitrate 30 MG TAB.ER.24H PO (15:46)
--- NOTE | 2022-07-03 18:19 | PC.NURSE ---
PATIENT ANXIOUS DAY WENT ON. 0.5MG PRN KLONOPIN GIVEN, SEE EMAR. GOOD EFFECT NOTED PER PATIENT STATEMENT. PATIENT AND FAMILY UPDATED ON CURRENT HEALTH STATUS.
[2022-07-03 19:13] VITALS: BP 119/58; PULSE 68; RESP 16; TEMP 36.3; O2SAT 96
[2022-07-03 19:30] LABS: Glucose, Whole Blood 178 mg/dL (60-115)
[2022-07-04] VITALS (8 sets, daily range): BP systolic 108–160; BP diastolic 57–79; PULSE 51–88; RESP 16–20; TEMP 36.1–36.7; O2SAT 92–96; BMI 28.9
[2022-07-04 07:15] LABS: Hematocrit 34.5 % (37.0-47.0); Hemoglobin 11.9 g/dl (12.0-16.0); Mean Corpuscular HGB Conc 34.5 g/dl (31.0-35.0); Mean Corpuscular Hemoglobin 28.3 pg (27.0-33.0); Mean Corpuscular Volume 81.9 fL (80.0-98.0); Mean Platelet Volume 10.1 fL (9.4-12.3); Platelet Count 369 X10*3/uL (160-400); Red Blood Count 4.21 X10*6/uL (4.20-5.50); Red Cell Distribution Width 13.4 % (11.0-16.0)
[2022-07-04 07:16] LABS: WBC ABN SCTR FOR CBC 1
[2022-07-04 07:18] LABS: Alanine Aminotransferase 101 U/L (0-31); Albumin Level 3.2 g/dL (3.5-5.0); Alkaline Phosphatase 63 U/L (39-117); Aspartate Amino Transferase 56 U/L (5-31); Bilirubin Total 0.6 mg/dL (0.0-1.0); Blood Urea Nitrogen 68 mg/dL (9-16); Calcium 8.9 mg/dL (8.4-10.2); Creatinine Clr Calc Pharmacy 8.8; Estimated Glomerular Filt Rate 7; Glucose Fasting 106 mg/dL (60-99); Total Protein 5.2 g/dL (6.5-8.0)
[2022-07-04 07:32] LABS: Anion Gap 26 (12-20); Carbon Dioxide 16 mmol/L (22-29); Chloride 93 mmol/L (96-108); Potassium 4.8 mmol/L (3.3-5.1); Sodium 130 mmol/L (135-145)
[2022-07-04 07:35] LABS: Glucose, Whole Blood 149 mg/dL (60-115)
[2022-07-04 08:07] LABS: Band Neutrophils Percent 6 % (3-5); Eosinophils Percent Manual 4 % (0-4); Lymphocytes Percent Manual 16 % (20-40); Monocytes Percent Manual 5 % (2-11); Neutrophils Percent Manual 69 % (45-73)
[2022-07-04 08:08] LABS: Burr Cells 2+ (3-5) /OIF; Platelet Estimate NORMAL (NORMAL); Platelet Morphology Comment NORMAL; RBC Morphology NOTED; Toxic Granulation PRESENT
[2022-07-04 08:09] LABS: Eosinophils Absolute Manual 0.8 X10*3/uL (0.0-0.4); Lymphocytes Absolute Manual 3.3 X10*3/uL (1.2-4.9); Neutrophils Absolute Manual 15.3 X10*3/uL (2.0-8.3); White Blood Count 20.4 X10*3/uL (4.8-10.8)
[2022-07-04] MEDS: Metoprolol Tartrate 25 MG TABLET PO ×2 (09:25→20:34)
[2022-07-04] MEDS: Isosorbide Mononitrate 30 MG TAB.ER.24H PO (09:25)
[2022-07-04] MEDS: Apixaban 2.5 MG TABLET PO ×2 (09:25→20:33)
[2022-07-04] MEDS: Clopidogrel Bisulfate 75 MG TABLET PO (09:25)
[2022-07-04] MEDS: amLODIPine Besylate 10 MG TABLET PO (09:25)
[2022-07-04] MEDS: Insulin Glargine,Hum.rec.anlog 100 UNIT/ML 10 ML VIAL 30 UNIT SUBCUT (09:26)
[2022-07-04] MEDS: Nystatin Oral Susp 500,000 UNIT/5 ML ORAL.SUSP 100000 UNIT BUCCAL ×2 (09:27→20:34)
--- NOTE | 2022-07-04 09:28 | P.PNNP_ITS ---
Subjective Subjective Date of Service: 07/04/22 Interval history: seen and examined no complaints Physical Exam Vital Signs: Vital Signs: Last Vital Signs Temp 98.1 F 07/04/22 08:00 Pulse 66 07/04/22 08:00 Resp 18 07/04/22 08:00 BP 160/72 H 07/04/22 08:00 Pulse Ox 95 07/04/22 08:00 O2 Del Method 07/04/22 08:00 O2 Flow Rate 3 07/02/22 07:00 FiO2 30 07/01/22 09:00 BMI result Body Mass Index 28.9 Const: General: no acute distress HEENT: Head: Yes normocephalic and Yes atraumatic Neck: Neck: Yes supple Resp: Auscultation: diminished lung sounds Cardio: Heart sounds: S1 normal heart sound present and S2 normal heart sound present GI: Palpation (GI): Soft to palpation and nontender Extrem: General: No edema Objective Data Labs 07/04/22 06:20 07/04/22 06:20 Labs: Laboratory Results - last 24 hr 07/03/22 07/03/22 07/03/22 11:10 15:39 19:16 WBC RBC Hgb Hct MCV MCH MCHC RDW Plt Count MPV Immature Gran % (Auto) Neut % (Auto) Lymph % (Auto) [place] % (Auto) Eos % (Auto) Baso % (Auto) Lymph # (Auto) [place] # (Auto) Eos # (Auto) Baso # (Auto) Abs Immat Gran (auto) Absolute Neuts (auto) Absolute Nucleated RBC Nucleated RBC % (auto) Neutrophils % (Manual) Band Neutrophils % Lymphocytes % (Manual) Monocytes % (Manual) Eosinophils % (Manual) Abs Neuts (Manual) Lymphocytes # (Manual) Monocytes # (Manual) Eosinophils # (Manual) Toxic Granulation Platelet Estimate Plt Morphology Comment RBC Morphology [place] Cells Sodium Potassium Chloride Carbon Dioxide Anion Gap BUN Creatinine Estim Creat Clear Calc Estimated GFR POC Glucose 318 H 253 H 178 H Fasting Glucose Calcium Total Bilirubin AST ALT Alkaline Phosphatase Total Creatine Kinase Total Protein Albumin 07/04/22 07/04/22 07/04/22 06:20 06:20 07:29 WBC 20.4 H RBC 4.21 Hgb 11.9 L Hct 34.5 L MCV 81.9 MCH 28.3 MCHC 34.5 RDW 13.4 Plt Count 369 MPV 10.1 Immature Gran % (Auto) Cancelled Neut % (Auto) Cancelled Lymph % (Auto) Cancelled [place] % (Auto) Cancelled Eos % (Auto) Cancelled Baso % (Auto) Cancelled Lymph # (Auto) Cancelled [place] # (Auto) Cancelled Eos # (Auto) Cancelled Baso # (Auto) Cancelled Abs Immat Gran (auto) Cancelled Absolute Neuts (auto) Cancelled Absolute Nucleated RBC 0.000 Nucleated RBC % (auto) 0.0 Neutrophils % (Manual) 69 Band Neutrophils % 6 H Lymphocytes % (Manual) 16 L Monocytes % (Manual) 5 Eosinophils % (Manual) 4 Abs Neuts (Manual) 15.3 H Lymphocytes # (Manual) 3.3 Monocytes # (Manual) 1.0 Eosinophils # (Manual) 0.8 H Toxic Granulation PRESENT Platelet Estimate NORMAL Plt Morphology Comment NORMAL RBC Morphology NOTED [place] Cells 2+ (3-5) Sodium 130 L Potassium 4.8 Chloride 93 L Carbon Dioxide 16 L Anion Gap 26 H BUN 68 H Creatinine 5.59 H* Estim Creat Clear Calc 8.8 Estimated GFR 7 POC Glucose 149 H Fasting Glucose 106 H Calcium 8.9 Total Bilirubin 0.6 AST 56 H ALT 101 H Alkaline Phosphatase 63 Total Creatine Kinase 428 H Total Protein 5.2 L Albumin 3.2 L Microbiology Microbiology Results: Microbiology 06/28/22 15:42 Blood - Venous Blood Culture - Final No growth after 5 days. 06/28/22 13:59 Blood - Venous Blood Culture - Final No growth after 5 days. 06/28/22 17:03 Urine clean catch - Urine ryan top Urine Culture - Final Procedures Date of Service Date of Service: 07/04/22 Assessment & Plan Assessment and plan (1) JHONNY (acute kidney injury): Status: Acute (2) Hyponatremia: Status: Acute (3) Metabolic acidosis: Status: Acute Plan oligo anuric JHONNY due to heme pigment nephrotoxicity HD dependent no sign of recovery yet normal baseline kidney function hypervolemic hyponatremia REC HD today UF as tolerated monitor urine output follow kidney function and electrolytes Time Spent With Patient Time: Total time managing care of this patient today ____ minutes. Progress Note: Quality Stroke Does the patient have a stroke diagnosis?: No
--- NOTE | 2022-07-04 10:19 | PM.PNCARD ---
Subjective Subjective Date of Service: 07/04/22 Principal diagnosis: atrial flutter, NSTEMI Interval history: patient currently not having any chest pain. Said sharp chest pain yesterday worse with breathing. Remains in atrial flutter. Kidney functions are still not improved. Denies shortness of breath or orthopnea. Review of Systems Constitutional: Reports no additional constitutional complaints Cardiovascular: Reports chest pain ( Sharp worse with breathing yesterday), Denies lightheadedness, Denies palpitations and Denies orthopnea Respiratory: Reports no additional respiratory complaints Genitourinary: Reports no additional female genitourinary complaints Musculoskeletal: Reports no additional musculoskeletal complaints Endocrine: Denies palpitations Physical Exam Vital Signs: Last Vital Signs Temp 98.1 F 07/04/22 08:00 Pulse 66 07/04/22 08:00 Resp 18 07/04/22 08:00 BP 160/72 H 07/04/22 08:00 Pulse Ox 95 07/04/22 08:00 O2 Del Method 07/04/22 08:00 O2 Flow Rate 3 07/02/22 07:00 FiO2 30 07/01/22 09:00 BMI result Body Mass Index 28.9 GENERAL APPEARANCE: in no acute distress. SKIN: no suspicious lesions, warm and dry. HEART: no murmurs, regular rate and rhythm. LUNGS: clear to auscultation bilaterally. No chest wall tenderness. ABDOMEN: soft, nontender. EXTREMITIES: no edema. PERIPHERAL PULSES: equal. NEUROLOGIC: No gross deficits, AAO X 3 Objective Labs and Meds 07/04/22 06:20 07/04/22 06:20 Lab results: Laboratory Results - last 24 hr 07/03/22 07/03/22 07/03/22 11:10 15:39 19:16 WBC RBC Hgb Hct MCV MCH MCHC RDW Plt Count MPV Immature Gran % (Auto) Neut % (Auto) Lymph % (Auto) [place] % (Auto) Eos % (Auto) Baso % (Auto) Lymph # (Auto) [place] # (Auto) Eos # (Auto) Baso # (Auto) Abs Immat Gran (auto) Absolute Neuts (auto) Absolute Nucleated RBC Nucleated RBC % (auto) Neutrophils % (Manual) Band Neutrophils % Lymphocytes % (Manual) Monocytes % (Manual) Eosinophils % (Manual) Abs Neuts (Manual) Lymphocytes # (Manual) Monocytes # (Manual) Eosinophils # (Manual) Toxic Granulation Platelet Estimate Plt Morphology Comment RBC Morphology [place] Cells Sodium Potassium Chloride Carbon Dioxide Anion Gap BUN Creatinine Estim Creat Clear Calc Estimated GFR POC Glucose 318 H 253 H 178 H Fasting Glucose Calcium Total Bilirubin AST ALT Alkaline Phosphatase Total Creatine Kinase Total Protein Albumin 07/04/22 07/04/22 07/04/22 06:20 06:20 07:29 WBC 20.4 H RBC 4.21 Hgb 11.9 L Hct 34.5 L MCV 81.9 MCH 28.3 MCHC 34.5 RDW 13.4 Plt Count 369 MPV 10.1 Immature Gran % (Auto) Cancelled Neut % (Auto) Cancelled Lymph % (Auto) Cancelled [place] % (Auto) Cancelled Eos % (Auto) Cancelled Baso % (Auto) Cancelled Lymph # (Auto) Cancelled [place] # (Auto) Cancelled Eos # (Auto) Cancelled Baso # (Auto) Cancelled Abs Immat Gran (auto) Cancelled Absolute Neuts (auto) Cancelled Absolute Nucleated RBC 0.000 Nucleated RBC % (auto) 0.0 Neutrophils % (Manual) 69 Band Neutrophils % 6 H Lymphocytes % (Manual) 16 L Monocytes % (Manual) 5 Eosinophils % (Manual) 4 Abs Neuts (Manual) 15.3 H Lymphocytes # (Manual) 3.3 Monocytes # (Manual) 1.0 Eosinophils # (Manual) 0.8 H Toxic Granulation PRESENT Platelet Estimate NORMAL Plt Morphology Comment NORMAL RBC Morphology NOTED [place] Cells 2+ (3-5) Sodium 130 L Potassium 4.8 Chloride 93 L Carbon Dioxide 16 L Anion Gap 26 H BUN 68 H Creatinine 5.59 H* Estim Creat Clear Calc 8.8 Estimated GFR 7 POC Glucose 149 H Fasting Glucose 106 H Calcium 8.9 Total Bilirubin 0.6 AST 56 H ALT 101 H Alkaline Phosphatase 63 Total Creatine Kinase 428 H Total Protein 5.2 L Albumin 3.2 L Progress Note: A&P Assessment and plan (1) NSTEMI (non-ST elevated myocardial infarction): Status: Acute Assessment and Plan: NSTEMI in this elderly woman could be multifactorial, could be secondary related acute kidney injury and medical illness, takotsubo cardiomyopathy or with underlying significant coronary artery disease given her risk factors. Consider repeat echocardiogram at this point in time. If she has completely normalized apical wall motion abnormality would most likely suggest stress-induced cardiomyopathy management with medical therapy. She has lot of other medical issues. She has persistent wall motion abnormality would suggest ischemic workup with vasodilating myocardial perfusion imaging tomorrow and day after tomorrow. Management still would be conservative given her multiple medical issues and frailty at this point in time. But will help with prognosis and better blood pressure control is required. consider adding Isordil and hydralazine to her regimen (2) Atrial flutter: Status: Acute Assessment and Plan: atrial flutter with adequate rate control. Continue full oral anticoagulation currently on apixaban 2.5 mg b.i.d. for renal failure. Will continue to follow with the patient Time Spent With Patient Time: Total time managing care of this patient today ____ minutes. Progress Note: Quality Stroke Does the patient have a stroke diagnosis?: No Procedures Date of Service Date of Service: 07/04/22
--- NOTE | 2022-07-04 10:24 | MHC.CM.PN ---
Per ROUNDS discussion, Patient is not yet medically cleared for dc (new HD/awaiting recovery & ECHO today); STR appears likely pending PT eval and CM will continue to follow.
--- NOTE | 2022-07-04 10:55 | MHC.CLN ---
F/U PO INTAKE VARIABLE RANGING FROM 25-100% DIET RX: 1800DM-APPROPRIATE MONITOR PO INTAKE CLOSELY
--- NOTE | 2022-07-04 11:30 | P.PNIM_ITS ---
Subjective Subjective Date of Service: 07/04/22 Interval History: denies chest pain no dyspnea to HD today Review of Systems Review of Systems: Yes all other systems are reviewed and are negative Physical Exam Vital Signs: Vital Signs: Last Vital Signs Temp 97.5 F 07/04/22 11:24 Pulse 66 07/04/22 11:24 Resp 18 07/04/22 11:24 BP 150/68 H 07/04/22 11:24 Pulse Ox 95 07/04/22 11:24 O2 Del Method 07/04/22 11:24 O2 Flow Rate 3 07/02/22 07:00 FiO2 30 07/01/22 09:00 BMI result Body Mass Index 28.9 Gen: in no acute distress HEENT: sclera anicteric, moist mucus membranes Neck: supple, RIJ HD catheter Lungs: clear to auscultation bilaterally Heart: regular rate and rhythm, no murmurs Abd: soft, non-tender, non-distended Ext: no edema Skin: warm/well-perfused Neuro: alert and oriented x3, no focal findings Psych: appropriate affect Objective Data Active Medications Acetaminophen (Acetaminophen 325 Mg Tablet) 650 mg PO Q6H PRN PRN Reason: Pain, Moderate (Pain Scale 4-6 Last Admin: 07/01/22 19:41 Dose: 650 mg Documented By: LUKAS Amlodipine Besylate (Amlodipine Besylate 10 Mg Tablet) 10 mg PO DAILY [facility]; Protocol Last Admin: 07/04/22 09:25 Dose: 10 mg Documented By: SONJA Apixaban (Apixaban 2.5 Mg Tablet) 2.5 mg PO BID [facility] Last Admin: 07/04/22 09:25 Dose: 2.5 mg Documented By: SONJA Clonazepam (Clonazepam 0.5 Mg Tablet) 0.5 mg PO TID PRN PRN Reason: Anxiety Last Admin: 07/03/22 15:45 Dose: 0.5 mg Documented By: ELISA Clopidogrel Bisulfate (Clopidogrel Bisulfate 75 Mg Tablet) 75 mg PO DAILY [facility] Last Admin: 07/04/22 09:25 Dose: 75 mg Documented By: SONJA Dextrose (Dextrose 50 % 25 Gm/50 Ml Syringe) 25 gm IVPUSH Q30M PRN PRN Reason: Nursing Actions in Insulin Infusion Protocol Fentanyl (Fentanyl Citrate/Pf 100 Mcg/2 Ml Vial) 50 mcg IVPUSH Q2H PRN; Protocol PRN Reason: Ventilator synchrony Last Admin: 07/01/22 00:41 Dose: 50 mcg Documented By: MARY Insulin Glargine (Insulin Glargine,Hum.Rec.Anlog 100 Unit/Ml 10 Ml Vial) 30 unit SUBCUT DAILY [facility] Last Admin: 07/04/22 09:26 Dose: 30 unit Documented By: SONJA Insulin Human Lispro (Insulin Lispro 100 Unit/Ml 3 Ml Vial) 0.1 - 10 unit SUBCUT QIDACHS [facility]; Protocol Last Admin: 07/04/22 08:58 Dose: Not Given Documented By: SONJA Non-Admin Reason: No Insulin Coverage Isosorbide Mononitrate (Isosorbide Mononitrate 30 Mg Tab.Er.24h) 30 mg PO DAILY [facility]; Protocol Last Admin: 07/04/22 09:25 Dose: 30 mg Documented By: SONJA Loperamide HCl (Loperamide Hcl Oral Liquid 2 Mg/15 Ml Liquid) 4 mg PO Q6H PRN PRN Reason: Diarrhea Last Admin: 07/02/22 12:21 Dose: 4 mg Documented By: ELISA Metoprolol Tartrate (Metoprolol Tartrate 25 Mg Tablet) 25 mg PO BID [facility]; Protocol Last Admin: 07/04/22 09:25 Dose: 25 mg Documented By: SONJA Morphine Sulfate (Morphine Sulfate 4 Mg/Ml Cartridge) 3 mg IVPUSH Q3H PRN; Protocol PRN Reason: Pain, Severe (Pain Scale 7-10) Nitroglycerin (Nitroglycerin 0.4 Mg Tab.Subl) 0.4 mg SUBLINGUAL Q5MX3 PRN PRN Reason: Chest Pain Nystatin (Nystatin Oral Susp 500,000 Unit/5 Ml Oral.Susp) 100,000 unit BUCCAL TID [facility]; Protocol Last Admin: 07/04/22 09:27 Dose: 100,000 unit Documented By: SONJA Labs 07/04/22 06:20 07/04/22 06:20 Labs: Laboratory Results - last 24 hr 07/03/22 07/03/22 07/04/22 15:39 19:16 06:20 MCV 81.9 MCH 28.3 MCHC 34.5 RDW 13.4 Plt Count 369 MPV 10.1 Immature Gran % (Auto) Cancelled Neut % (Auto) Cancelled Lymph % (Auto) Cancelled [place] % (Auto) Cancelled Eos % (Auto) Cancelled Baso % (Auto) Cancelled Lymph # (Auto) Cancelled [place] # (Auto) Cancelled Eos # (Auto) Cancelled Baso # (Auto) Cancelled Abs Immat Gran (auto) Cancelled Absolute Neuts (auto) Cancelled Absolute Nucleated RBC 0.000 Nucleated RBC % (auto) 0.0 Neutrophils % (Manual) 69 Band Neutrophils % 6 H Lymphocytes % (Manual) 16 L Monocytes % (Manual) 5 Eosinophils % (Manual) 4 Abs Neuts (Manual) 15.3 H Lymphocytes # (Manual) 3.3 Monocytes # (Manual) 1.0 Eosinophils # (Manual) 0.8 H Toxic Granulation PRESENT Platelet Estimate NORMAL Plt Morphology Comment NORMAL RBC Morphology NOTED [place] Cells 2+ (3-5) Anion Gap Estim Creat Clear Calc Estimated GFR POC Glucose 253 H 178 H Fasting Glucose Calcium Total Bilirubin AST ALT Alkaline Phosphatase Total Creatine Kinase Total Protein Albumin 07/04/22 07/04/22 06:20 07:29 MCV MCH MCHC RDW Plt Count MPV Immature Gran % (Auto) Neut % (Auto) Lymph % (Auto) [place] % (Auto) Eos % (Auto) Baso % (Auto) Lymph # (Auto) [place] # (Auto) Eos # (Auto) Baso # (Auto) Abs Immat Gran (auto) Absolute Neuts (auto) Absolute Nucleated RBC Nucleated RBC % (auto) Neutrophils % (Manual) Band Neutrophils % Lymphocytes % (Manual) Monocytes % (Manual) Eosinophils % (Manual) Abs Neuts (Manual) Lymphocytes # (Manual) Monocytes # (Manual) Eosinophils # (Manual) Toxic Granulation Platelet Estimate Plt Morphology Comment RBC Morphology [place] Cells Anion Gap 26 H Estim Creat Clear Calc 8.8 Estimated GFR 7 POC Glucose 149 H Fasting Glucose 106 H Calcium 8.9 Total Bilirubin 0.6 AST 56 H ALT 101 H Alkaline Phosphatase 63 Total Creatine Kinase 428 H Total Protein 5.2 L Albumin 3.2 L Microbiology Microbiology Results: Microbiology 06/28/22 15:42 Blood Culture - Final Blood - Venous No growth after 5 days. 06/28/22 13:59 Blood Culture - Final Blood - Venous No growth after 5 days. Assessment and Plan (1) NSTEMI (non-ST elevated myocardial infarction): Status: Acute (2) Rhabdomyolysis: Status: Acute (3) Acute renal failure: Status: Acute Plan d#7 77yo F with DM, HTN, atrial flutter who fell in her bathroom and was down an estimated 24-36 hr. Found to be an JHONNY due to rhabdomyolysis, with NSTEMI. Intubated and subsequently required HD. 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 if persistent WMA, more likely ACS and will need inpatient MPS. 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 # acute metabolic acidosis # rhabdomyolysis - Nephro following, on HD MWF, awaiting renal recovery - CPK now well below 1000 # atrial flutter - rate-controlled on metoprolol, continue apixaban # HTN - continue metoprolol + amlodipine; Isordil + hydralazine as above # DM2 - basal-bolus insulin # VTE ppx: apixaban # dispo: PT eval, will eventually need STR In my clinical judgment, the patient requires continued inpatient hospitalization for the following reasons: JHONNY, NSTEMI Time Spent With Patient Time: Total time managing care of this patient today __50__ minutes. Quality Stroke Does the patient have a stroke diagnosis?: No VTE Prior VTE?: No VTE Risk Level:: Medical - moderate - high VTE Device Contraindication: N/A - Device Ordered VTE Drug Contraindication: Treatment Not Tolerated
[2022-07-04 11:51] LABS: Glucose, Whole Blood 80 mg/dL (60-115)
[2022-07-04 17:26] LABS: Glucose, Whole Blood 146 mg/dL (60-115)
[2022-07-04] MEDS: Isosorbide Dinitrate 10 MG TABLET PO (17:34)
[2022-07-04 20:18] LABS: Glucose, Whole Blood 212 mg/dL (60-115)
[2022-07-04] MEDS: hydrALAZINE HCl 25 MG TABLET PO (20:33)
[2022-07-04] MEDS: Melatonin 3 MG TABLET 6 MG PO (20:34)
[2022-07-04] MEDS: clonazePAM 0.5 MG TABLET PO (20:34)
[2022-07-05] VITALS (7 sets, daily range): BP systolic 122–143; BP diastolic 50–67; PULSE 43–65; RESP 16–18; TEMP 36.1–36.6; O2SAT 94–96
--- NOTE | 2022-07-05 | CA_ITS ---
Acquisition Time: 2022-07-06 10:23:02 Total Exercise Time: 00:02:00 Test Indications: I25.10 Medications: See H Protocol: LEXISCAN Max HR: 067 BPM 46% of Pred: 144 BPM Max BP: 132/050 mmHG Max Work Load: 1.0 METS Pharmacological stress test with Lexiscan injection, while laying on strecher and moving feet, without anginal symptoms, without arrythmia, with normotensive response to injection, with nondiagnostic EKG for ischemia. Nuclear images pending. Test reviewed with Dr Stone Referred By: Valeriano Pichardo Overread By: LUISANA NOBLES
[2022-07-05 06:53] LABS: Hemoglobin 11.5 g/dl (12.0-16.0); Mean Corpuscular HGB Conc 33.8 g/dl (31.0-35.0); Mean Corpuscular Hemoglobin 28.3 pg (27.0-33.0); Mean Corpuscular Volume 83.7 fL (80.0-98.0); Mean Platelet Volume 10.2 fL (9.4-12.3); Platelet Count 443 X10*3/uL (160-400); Red Blood Count 4.06 X10*6/uL (4.20-5.50); Red Cell Distribution Width 13.8 % (11.0-16.0); WBC ABN SCTR FOR CBC 1
--- NOTE | 2022-07-05 07:00 | CA_ITS ---
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 Left Ventricle Normal left ventricular cavity size. The left ventricular systolic function is normal. The visually estimated ejection fraction is between 60-65%. Spectral Doppler is indicative of an impaired relaxation filling pattern. Wall Motion Rest Echo Findings The apex, apical anterior, apical lateral, and apical septum segments are hypokinetic. The basal inferior segment is akinetic. All other scored wall segments showed normal motion. Venous The inferior vena cava is normal in size and collapses greater than 50% with inspiration. Prior Study Comparison Changes noted compared to prior study dated: 06/29/2022. LV systolic function has improved but regional wall motion abnormality a persistent Measurements 2D Systolic Function EF 4C: 73.70 >55% EF 2C: 63.80 >55% EF BiP: 69.70 >55% Tricuspid Valve RA Press: 8.00 Updated in Other Vendor System with Status of Final David Stone MD electronically signed on 07/05/2022 12:13:35 PM with status of Final
[2022-07-05 07:15] LABS: Alanine Aminotransferase 84 U/L (0-31); Alkaline Phosphatase 63 U/L (39-117); Aspartate Amino Transferase 46 U/L (5-31); Bilirubin Total 0.6 mg/dL (0.0-1.0); Blood Urea Nitrogen 48 mg/dL (9-16); Calcium 8.4 mg/dL (8.4-10.2); Creatinine Clr Calc Pharmacy 10.9; Estimated Glomerular Filt Rate 9; Glucose Fasting 150 mg/dL (60-99); Total Protein 5.1 g/dL (6.5-8.0)
[2022-07-05 07:26] LABS: Anion Gap 21 (12-20); Carbon Dioxide 17 mmol/L (22-29); Chloride 97 mmol/L (96-108); Potassium 4.1 mmol/L (3.3-5.1); Sodium 131 mmol/L (135-145)
[2022-07-05 07:36] LABS: Band Neutrophils Percent 12 % (3-5); Eosinophils Percent Manual 2 % (0-4); Lymphocytes Percent Manual 16 % (20-40); Monocytes Percent Manual 7 % (2-11); Neutrophils Percent Manual 63 % (45-73)
[2022-07-05 07:41] LABS: Burr Cells 3+ (>5) /OIF; Ovalocytes 1+ (5-14) /OIF; RBC Morphology NOTED
[2022-07-05 07:43] LABS: Toxic Granulation PRESENT
[2022-07-05 07:45] LABS: Platelet Estimate SLIGHTLY DECREASED (NORMAL); Platelet Morphology Comment NORM
[2022-07-05 07:46] LABS: Eosinophils Absolute Manual 0.4 X10*3/uL (0.0-0.4); Lymphocytes Absolute Manual 3.1 X10*3/uL (1.2-4.9); Monocytes Absolute Manual 1.4 X10*3/uL (0.1-1.2); Neutrophils Absolute Manual 14.7 X10*3/uL (2.0-8.3); White Blood Count 19.6 X10*3/uL (4.8-10.8)
[2022-07-05 08:06] LABS: Glucose, Whole Blood 152 mg/dL (60-115)
[2022-07-05] MEDS: Apixaban 2.5 MG TABLET PO ×2 (08:33→21:26)
[2022-07-05] MEDS: Isosorbide Dinitrate 10 MG TABLET PO ×3 (08:33→16:40)
[2022-07-05] MEDS: amLODIPine Besylate 10 MG TABLET PO (08:33)
[2022-07-05] MEDS: Clopidogrel Bisulfate 75 MG TABLET PO (08:33)
[2022-07-05] MEDS: Nystatin Oral Susp 500,000 UNIT/5 ML ORAL.SUSP 100000 UNIT BUCCAL ×3 (08:34→21:26)
[2022-07-05] MEDS: hydrALAZINE HCl 25 MG TABLET PO ×3 (08:34→21:26)
[2022-07-05] MEDS: Insulin Lispro 100 UNIT/ML 3 ML VIAL SUBCUT ×4 (08:36→21:26)
[2022-07-05] MEDS: Insulin Glargine,Hum.rec.anlog 100 UNIT/ML 10 ML VIAL 30 UNIT SUBCUT (08:37)
--- NOTE | 2022-07-05 10:38 | P.PNNP_ITS ---
Subjective Subjective Date of Service: 07/05/22 Principal diagnosis: atrial flutter, NSTEMI Interval history: Events noted HD yesterday UO sluggish Physical Exam Vital Signs: Vital Signs: Last Vital Signs Temp 97.6 F 07/05/22 07:34 Pulse 64 07/05/22 09:49 Resp 18 07/05/22 07:34 BP 143/67 H 07/05/22 07:34 Pulse Ox 96 07/05/22 07:34 O2 Del Method 07/05/22 07:34 O2 Flow Rate 3 07/02/22 07:00 FiO2 30 07/01/22 09:00 BMI result Body Mass Index 28.9 Const: General: no acute distress HEENT: Head: Yes normocephalic and Yes atraumatic Neck: Neck: Yes supple Resp: Auscultation: diminished lung sounds Cardio: Rate: regular rate Heart sounds: S1 normal heart sound present and S2 normal heart sound present GI: Palpation (GI): Soft to palpation and nontender Neuro: Other: Sedated Extrem: General: No edema Objective Data Labs 07/05/22 06:13 07/05/22 06:13 Labs: Laboratory Results - last 24 hr 07/04/22 07/04/22 07/04/22 11:35 17:22 20:03 WBC RBC Hgb Hct MCV MCH MCHC RDW Plt Count MPV Immature Gran % (Auto) Neut % (Auto) Lymph % (Auto) [place] % (Auto) Eos % (Auto) Baso % (Auto) Lymph # (Auto) [place] # (Auto) Eos # (Auto) Baso # (Auto) Abs Immat Gran (auto) Absolute Neuts (auto) Absolute Nucleated RBC Nucleated RBC % (auto) Neutrophils % (Manual) Band Neutrophils % Lymphocytes % (Manual) Monocytes % (Manual) Eosinophils % (Manual) Abs Neuts (Manual) Lymphocytes # (Manual) Monocytes # (Manual) Eosinophils # (Manual) Toxic Granulation Platelet Estimate Plt Morphology Comment RBC Morphology Ovalocytes Ian Cells Sodium Potassium Chloride Carbon Dioxide Anion Gap BUN Creatinine Estim Creat Clear Calc Estimated GFR POC Glucose 80 146 H 212 H Fasting Glucose Calcium Total Bilirubin AST ALT Alkaline Phosphatase Total Creatine Kinase Total Protein Albumin 07/05/22 07/05/22 07/05/22 06:13 06:13 07:58 WBC 19.6 H RBC 4.06 L Hgb 11.5 L Hct 34.0 L MCV 83.7 MCH 28.3 MCHC 33.8 RDW 13.8 Plt Count 443 H MPV 10.2 Immature Gran % (Auto) Cancelled Neut % (Auto) Cancelled Lymph % (Auto) Cancelled [place] % (Auto) Cancelled Eos % (Auto) Cancelled Baso % (Auto) Cancelled Lymph # (Auto) Cancelled [place] # (Auto) Cancelled Eos # (Auto) Cancelled Baso # (Auto) Cancelled Abs Immat Gran (auto) Cancelled Absolute Neuts (auto) Cancelled Absolute Nucleated RBC 0.000 Nucleated RBC % (auto) 0.0 Neutrophils % (Manual) 63 Band Neutrophils % 12 H Lymphocytes % (Manual) 16 L Monocytes % (Manual) 7 Eosinophils % (Manual) 2 Abs Neuts (Manual) 14.7 H Lymphocytes # (Manual) 3.1 Monocytes # (Manual) 1.4 H Eosinophils # (Manual) 0.4 Toxic Granulation PRESENT Platelet Estimate SLIGHTLY DECREASED Plt Morphology Comment NORM RBC Morphology NOTED Ovalocytes 1+ (5-14) [place] Cells 3+ (>5) Sodium 131 L Potassium 4.1 Chloride 97 Carbon Dioxide 17 L Anion Gap 21 H BUN 48 H Creatinine 4.53 H* Estim Creat Clear Calc 10.9 Estimated GFR 9 POC Glucose 152 H Fasting Glucose 150 H Calcium 8.4 Total Bilirubin 0.6 AST 46 H ALT 84 H Alkaline Phosphatase 63 Total Creatine Kinase 719 H Total Protein 5.1 L Albumin 3.0 L Microbiology Microbiology Results: Microbiology 06/28/22 15:42 Blood - Venous Blood Culture - Final No growth after 5 days. 06/28/22 13:59 Blood - Venous Blood Culture - Final No growth after 5 days. 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 Progress Note: Quality Stroke Does the patient have a stroke diagnosis?: No
[2022-07-05 11:14] LABS: Glucose, Whole Blood 234 mg/dL (60-115)
--- NOTE | 2022-07-05 11:55 | P.PNIM_ITS ---
Subjective Subjective Date of Service: 07/05/22 Interval History: no chest pain no dizziness awaiting renal recovery Review of Systems Review of Systems: Yes all other systems are reviewed and are negative Physical Exam Vital Signs: Vital Signs: Last Vital Signs Temp 97.9 F 07/05/22 11:53 Pulse 52 07/05/22 11:53 Resp 16 07/05/22 11:53 BP 136/62 07/05/22 11:53 Pulse Ox 96 07/05/22 11:53 O2 Del Method 07/05/22 11:53 O2 Flow Rate 3 07/02/22 07:00 FiO2 30 07/01/22 09:00 BMI result Body Mass Index 28.9 Gen: in no acute distress HEENT: sclera anicteric, moist mucus membranes Neck: supple, RIJ HD catheter Lungs: clear to auscultation bilaterally Heart: bradycardic [in atrial flutter], no murmurs Abd: soft, non-tender, non-distended Ext: no edema Skin: warm/well-perfused Neuro: alert and oriented x3, no focal findings Psych: appropriate affect Objective Data Active Medications Acetaminophen (Acetaminophen 325 Mg Tablet) 650 mg PO Q6H PRN PRN Reason: Pain, Moderate (Pain Scale 4-6 Last Admin: 07/01/22 19:41 Dose: 650 mg Documented By: LUKAS Amlodipine Besylate (Amlodipine Besylate 10 Mg Tablet) 10 mg PO DAILY [facility]; Protocol Last Admin: 07/05/22 08:33 Dose: 10 mg Documented By: FREDDIE Apixaban (Apixaban 2.5 Mg Tablet) 2.5 mg PO BID [facility] Last Admin: 07/05/22 08:33 Dose: 2.5 mg Documented By: FREDDIE Clonazepam (Clonazepam 0.5 Mg Tablet) 0.5 mg PO TID PRN PRN Reason: Anxiety Last Admin: 07/04/22 20:34 Dose: 0.5 mg Documented By: BARBZEToby Clopidogrel Bisulfate (Clopidogrel Bisulfate 75 Mg Tablet) 75 mg PO DAILY [facility] Last Admin: 07/05/22 08:33 Dose: 75 mg Documented By: FREDDIE Dextrose (Dextrose 50 % 25 Gm/50 Ml Syringe) 25 gm IVPUSH Q30M PRN PRN Reason: Nursing Actions in Insulin Infusion Protocol Hydralazine HCl (Hydralazine Hcl 25 Mg Tablet) 25 mg PO TID [facility]; Protocol Last Admin: 07/05/22 08:34 Dose: 25 mg Documented By: FREDDIE Insulin Glargine (Insulin Glargine,Hum.Rec.Anlog 100 Unit/Ml 10 Ml Vial) 30 unit SUBCUT DAILY [facility] Last Admin: 07/05/22 08:37 Dose: 30 unit Documented By: FREDDIE Insulin Human Lispro (Insulin Lispro 100 Unit/Ml 3 Ml Vial) 0.1 - 10 unit SUBCUT QIDACHS [facility]; Protocol Last Admin: 07/05/22 08:36 Dose: 2 unit Documented By: FREDDIE Isosorbide Dinitrate (Isosorbide Dinitrate 10 Mg Tablet) 10 mg PO TID@0800,1300,1800 [facility]; Protocol Last Admin: 07/05/22 08:33 Dose: 10 mg Documented By: FREDDIE Loperamide HCl (Loperamide Hcl Oral Liquid 2 Mg/15 Ml Liquid) 4 mg PO Q6H PRN PRN Reason: Diarrhea Last Admin: 07/02/22 12:21 Dose: 4 mg Documented By: MELLYEAPartha Melatonin (Melatonin 3 Mg Tablet) 6 mg PO BEDTIME PRN PRN Reason: insomnia Last Admin: 07/04/22 20:34 Dose: 6 mg Documented By: ANAHI-NURAZEToby Metoprolol Tartrate (Metoprolol Tartrate 25 Mg Tablet) 25 mg PO BID [facility]; Protocol Last Admin: 07/05/22 09:20 Dose: Not Given Documented By: FREDDIE Non-Admin Reason: per policy Morphine Sulfate (Morphine Sulfate 4 Mg/Ml Cartridge) 3 mg IVPUSH Q3H PRN; Protocol PRN Reason: Pain, Severe (Pain Scale 7-10) Nitroglycerin (Nitroglycerin 0.4 Mg Tab.Subl) 0.4 mg SUBLINGUAL Q5MX3 PRN PRN Reason: Chest Pain Nystatin (Nystatin Oral Susp 500,000 Unit/5 Ml Oral.Susp) 100,000 unit BUCCAL TID [facility]; Protocol Last Admin: 07/05/22 08:34 Dose: 100,000 unit Documented By: FREDDIE Labs 07/05/22 06:13 07/05/22 06:13 Labs: Laboratory Results - last 24 hr 07/04/22 07/04/22 07/05/22 17:22 20:03 06:13 MCV 83.7 MCH 28.3 MCHC 33.8 RDW 13.8 Plt Count 443 H MPV 10.2 Immature Gran % (Auto) Cancelled Neut % (Auto) Cancelled Lymph % (Auto) Cancelled [place] % (Auto) Cancelled Eos % (Auto) Cancelled Baso % (Auto) Cancelled Lymph # (Auto) Cancelled [place] # (Auto) Cancelled Eos # (Auto) Cancelled Baso # (Auto) Cancelled Abs Immat Gran (auto) Cancelled Absolute Neuts (auto) Cancelled Absolute Nucleated RBC 0.000 Nucleated RBC % (auto) 0.0 Neutrophils % (Manual) 63 Band Neutrophils % 12 H Lymphocytes % (Manual) 16 L Monocytes % (Manual) 7 Eosinophils % (Manual) 2 Abs Neuts (Manual) 14.7 H Lymphocytes # (Manual) 3.1 Monocytes # (Manual) 1.4 H Eosinophils # (Manual) 0.4 Toxic Granulation PRESENT Platelet Estimate SLIGHTLY DECREASED Plt Morphology Comment NORM RBC Morphology NOTED Ovalocytes 1+ (5-14) [place] Cells 3+ (>5) Anion Gap Estim Creat Clear Calc Estimated GFR POC Glucose 146 H 212 H Fasting Glucose Calcium Total Bilirubin AST ALT Alkaline Phosphatase Total Creatine Kinase Total Protein Albumin 07/05/22 07/05/22 07/05/22 06:13 07:58 11:08 MCV MCH MCHC RDW Plt Count MPV Immature Gran % (Auto) Neut % (Auto) Lymph % (Auto) [place] % (Auto) Eos % (Auto) Baso % (Auto) Lymph # (Auto) [place] # (Auto) Eos # (Auto) Baso # (Auto) Abs Immat Gran (auto) Absolute Neuts (auto) Absolute Nucleated RBC Nucleated RBC % (auto) Neutrophils % (Manual) Band Neutrophils % Lymphocytes % (Manual) Monocytes % (Manual) Eosinophils % (Manual) Abs Neuts (Manual) Lymphocytes # (Manual) Monocytes # (Manual) Eosinophils # (Manual) Toxic Granulation Platelet Estimate Plt Morphology Comment RBC Morphology Ovalocytes [place] Cells Anion Gap 21 H Estim Creat Clear Calc 10.9 Estimated GFR 9 POC Glucose 152 H 234 H Fasting Glucose 150 H Calcium 8.4 Total Bilirubin 0.6 AST 46 H ALT 84 H Alkaline Phosphatase 63 Total Creatine Kinase 719 H Total Protein 5.1 L Albumin 3.0 L Assessment and Plan (1) NSTEMI (non-ST elevated myocardial infarction): Status: Acute (2) Rhabdomyolysis: Status: Acute (3) Acute renal failure: Status: Acute Plan d#8 77yo F with DM, HTN, atrial flutter who fell in her bathroom and was down an estimated 24-36 hr. Found to be an JHONNY due to rhabdomyolysis, with NSTEMI. Intubated and subsequently required HD. 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 if persistent WMA, more likely ACS and will need inpatient MPS. 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 # acute metabolic acidosis # rhabdomyolysis - Nephro following, on HD MWF, awaiting renal recovery- will convert to Permacath - CPK now well below 1000 # atrial flutter - rate-controlled on metoprolol- decrease dose as HR is in the 40s-50s, continue apixaban # HTN - continue metoprolol + amlodipine; Isordil + hydralazine as above # DM2 - basal-bolus insulin # VTE ppx: apixaban # dispo: will eventually need AIR In my clinical judgment, the patient requires continued inpatient hospitalization for the following reasons: JHONNY, NSTEMI Time Spent With Patient Time: Total time managing care of this patient today __40__ minutes. Quality Stroke Does the patient have a stroke diagnosis?: No VTE Prior VTE?: No VTE Risk Level:: Medical - moderate - high VTE Device Contraindication: N/A - Device Ordered VTE Drug Contraindication: Treatment Not Tolerated
[2022-07-05 16:13] LABS: Glucose, Whole Blood 162 mg/dL (60-115)
[2022-07-05] MEDS: Loperamide HCl Oral Liquid 2 MG/15 ML LIQUID 4 MG PO (17:30)
[2022-07-05 20:02] LABS: Glucose, Whole Blood 177 mg/dL (60-115)
[2022-07-05] MEDS: Melatonin 3 MG TABLET 6 MG PO (21:26)
[2022-07-05] MEDS: clonazePAM 0.5 MG TABLET PO (21:26)
[2022-07-06] VITALS (7 sets, daily range): BP systolic 123–134; BP diastolic 60–63; PULSE 51–68; RESP 15–20; TEMP 36.1–36.7; O2SAT 94–96; BMI 28.8
[2022-07-06] MEDS: Loperamide HCl Oral Liquid 2 MG/15 ML LIQUID 4 MG PO
[2022-07-06 02:33] LABS: Beta-Hydroxybutyrate 6.69 mmol/L
[2022-07-06 06:12] LABS: Hemoglobin 10.9 g/dl (12.0-16.0); Mean Corpuscular Hemoglobin 28.5 pg (27.0-33.0); Mean Corpuscular Volume 86.4 fL (80.0-98.0); Mean Platelet Volume 9.7 fL (9.4-12.3); Platelet Count 437 X10*3/uL (160-400); Red Blood Count 3.82 X10*6/uL (4.20-5.50)
[2022-07-06 06:13] LABS: WBC ABN SCTR FOR CBC 1; White Blood Count 19.6 X10*3/uL (4.8-10.8)
[2022-07-06 06:41] LABS: Alanine Aminotransferase 75 U/L (0-31); Alkaline Phosphatase 63 U/L (39-117); Anion Gap 20 (12-20); Aspartate Amino Transferase 44 U/L (5-31); Bilirubin Total 0.6 mg/dL (0.0-1.0); Blood Urea Nitrogen 67 mg/dL (9-16); Calcium 8.5 mg/dL (8.4-10.2); Carbon Dioxide 17 mmol/L (22-29); Chloride 99 mmol/L (96-108); Glucose Fasting 92 mg/dL (60-99); Glucose Random 92 mg/dL (60-115); Sodium 132 mmol/L (135-145); Total Protein 5.1 g/dL (6.5-8.0)
[2022-07-06 06:42] LABS: Band Neutrophils Percent 6 % (3-5); Creatinine Clr Calc Pharmacy 8.5; Eosinophils Absolute Manual 0.4 X10*3/uL (0.0-0.4); Eosinophils Percent Manual 2 % (0-4); Estimated Glomerular Filt Rate 7; Lymphocytes Absolute Manual 1.2 X10*3/uL (1.2-4.9); Lymphocytes Percent Manual 6 % (20-40); Metamyelocytes Absolute 0.2 X10*3/uL; Metamyelocytes Percent 1 %; Neutrophils Absolute Manual 17.8 X10*3/uL (2.0-8.3); Neutrophils Percent Manual 85 % (45-73)
[2022-07-06 06:43] LABS: Burr Cells 1+ (0-2) /OIF; Platelet Estimate SLIGHTLY INCREASED (NORMAL); Platelet Morphology Comment NORMAL; RBC Morphology NORMAL; Smudge Cells PRESENT; Toxic Granulation PRESENT
[2022-07-06 07:36] LABS: Glucose, Whole Blood 87 mg/dL (60-115)
[2022-07-06 08:00] LABS: HBS Num1 6.78 mIU/mL (0-7.99); HBc Num1 0.16 S/CO (0.00-0.79); Hepatitis B Core Antibody Nonreactive (Nonreactive); Hepatitis B Surface Antigen Negative (Negative); ~Hepatitis B Surface Antibody NONREACTIVE (Nonreactive)
--- NOTE | 2022-07-06 10:50 | HO.PM.IMPN ---
Subjective Subjective Date of Service: 07/06/22 Interval History: denies chest pain or dyspnea HD and stress test today Physical Exam Vital Signs: Vital Signs: Last Vital Signs Temp 97.7 F 07/06/22 07:22 Pulse 51 07/06/22 07:22 Resp 20 07/06/22 07:22 BP 134/63 07/06/22 07:22 Pulse Ox 95 07/06/22 07:22 O2 Del Method 07/06/22 07:22 O2 Flow Rate 3 07/02/22 07:00 FiO2 30 07/01/22 09:00 BMI result Body Mass Index 28.8 Gen: in no acute distress HEENT: sclera anicteric, moist mucus membranes Neck: supple, RIJ HD catheter Lungs: clear to auscultation bilaterally Heart: bradycardic [in atrial flutter], no murmurs Abd: soft, non-tender, non-distended Ext: no edema Skin: warm/well-perfused Neuro: alert and oriented x3, no focal findings Psych: appropriate affect Objective Data Active Medications Acetaminophen (Acetaminophen 325 Mg Tablet) 650 mg PO Q6H PRN PRN Reason: Pain, Moderate (Pain Scale 4-6 Last Admin: 07/01/22 19:41 Dose: 650 mg Documented By: LUKAS Amlodipine Besylate (Amlodipine Besylate 10 Mg Tablet) 10 mg PO DAILY [facility]; Protocol Last Admin: 07/06/22 09:49 Dose: Not Given Documented By: FREDDIE Non-Admin Reason: Off Unit: Surgery Apixaban (Apixaban 2.5 Mg Tablet) 2.5 mg PO BID [facility] Last Admin: 07/06/22 09:49 Dose: Not Given Documented By: FREDDIE Non-Admin Reason: Off Unit: Surgery Clonazepam (Clonazepam 0.5 Mg Tablet) 0.5 mg PO TID PRN PRN Reason: Anxiety Last Admin: 07/05/22 21:26 Dose: 0.5 mg Documented By: LILLIAN Clopidogrel Bisulfate (Clopidogrel Bisulfate 75 Mg Tablet) 75 mg PO DAILY [facility] Last Admin: 07/06/22 09:49 Dose: Not Given Documented By: FREDDIE Non-Admin Reason: Off Unit: Surgery Dextrose (Dextrose 50 % 25 Gm/50 Ml Syringe) 25 gm IVPUSH Q30M PRN PRN Reason: Nursing Actions in Insulin Infusion Protocol Hydralazine HCl (Hydralazine Hcl 25 Mg Tablet) 25 mg PO TID [facility]; Protocol Last Admin: 07/06/22 09:49 Dose: Not Given Documented By: FREDDIE Non-Admin Reason: Off Unit: Surgery Insulin Glargine (Insulin Glargine,Hum.Rec.Anlog 100 Unit/Ml 10 Ml Vial) 30 unit SUBCUT DAILY [facility] Last Admin: 07/06/22 09:48 Dose: Not Given Documented By: FREDDIE Non-Admin Reason: Off Unit: Surgery Insulin Human Lispro (Insulin Lispro 100 Unit/Ml 3 Ml Vial) 0.1 - 10 unit SUBCUT QIDACHS [facility]; Protocol Last Admin: 07/06/22 09:47 Dose: Not Given Documented By: FREDDIE Non-Admin Reason: No Insulin Coverage Isosorbide Dinitrate (Isosorbide Dinitrate 10 Mg Tablet) 10 mg PO TID@0800,1300,1800 [facility]; Protocol Last Admin: 07/06/22 09:50 Dose: Not Given Documented By: FREDDIE Non-Admin Reason: Off Unit: Surgery Loperamide HCl (Loperamide Hcl Oral Liquid 2 Mg/15 Ml Liquid) 4 mg PO Q6H PRN PRN Reason: Diarrhea Last Admin: 07/06/22 00:00 Dose: 4 mg Documented By: LILLIAN Melatonin (Melatonin 3 Mg Tablet) 6 mg PO BEDTIME PRN PRN Reason: insomnia Last Admin: 07/05/22 21:26 Dose: 6 mg Documented By: LILLIAN Metoprolol Tartrate (Metoprolol Tartrate 12.5 Mg Halftab) 12.5 mg PO BID [facility]; Protocol Last Admin: 07/06/22 09:54 Dose: Not Given Documented By: FREDDIE Non-Admin Reason: hr below 60 Morphine Sulfate (Morphine Sulfate 4 Mg/Ml Cartridge) 3 mg IVPUSH Q3H PRN; Protocol PRN Reason: Pain, Severe (Pain Scale 7-10) Nitroglycerin (Nitroglycerin 0.4 Mg Tab.Subl) 0.4 mg SUBLINGUAL Q5MX3 PRN PRN Reason: Chest Pain Nystatin (Nystatin Oral Susp 500,000 Unit/5 Ml Oral.Susp) 100,000 unit BUCCAL TID [facility]; Protocol Last Admin: 07/06/22 09:54 Dose: Not Given Documented By: FREDDIE Non-Admin Reason: Off Unit: Surgery Labs 07/06/22 06:01 07/06/22 06:01 Labs: Laboratory Results - last 24 hr 06/28/22 07/05/22 07/05/22 22:02 11:08 16:10 MCV MCH MCHC RDW Plt Count MPV Immature Gran % (Auto) Neut % (Auto) Lymph % (Auto) [place] % (Auto) Eos % (Auto) Baso % (Auto) Lymph # (Auto) [place] # (Auto) Eos # (Auto) Baso # (Auto) Abs Immat Gran (auto) Absolute Neuts (auto) Absolute Nucleated RBC Nucleated RBC % (auto) Neutrophils % (Manual) Band Neutrophils % Lymphocytes % (Manual) Eosinophils % (Manual) Metamyelocytes % Abs Neuts (Manual) Lymphocytes # (Manual) Eosinophils # (Manual) Metamyelocytes # Smudge Cells Toxic Granulation Platelet Estimate Plt Morphology Comment RBC Morphology [place] Cells Anion Gap Estim Creat Clear Calc Estimated GFR POC Glucose 234 H 162 H Random Glucose Fasting Glucose Calcium Total Bilirubin AST ALT Alkaline Phosphatase Total Creatine Kinase Total Protein Albumin Beta-Hydroxybutyrate/Acetoacetate 6.69 H Hep Bs Antigen Hep Bs Antibody Hep B Core Total Ab 07/05/22 07/06/22 07/06/22 19:59 06:01 06:01 MCV 86.4 MCH 28.5 MCHC 33.0 RDW 14.0 Plt Count 437 H MPV 9.7 Immature Gran % (Auto) Cancelled Neut % (Auto) Cancelled Lymph % (Auto) Cancelled [place] % (Auto) Cancelled Eos % (Auto) Cancelled Baso % (Auto) Cancelled Lymph # (Auto) Cancelled [place] # (Auto) Cancelled Eos # (Auto) Cancelled Baso # (Auto) Cancelled Abs Immat Gran (auto) Cancelled Absolute Neuts (auto) Cancelled Absolute Nucleated RBC 0.000 Nucleated RBC % (auto) 0.0 Neutrophils % (Manual) 85 H Band Neutrophils % 6 H Lymphocytes % (Manual) 6 L Eosinophils % (Manual) 2 Metamyelocytes % 1 Abs Neuts (Manual) 17.8 H Lymphocytes # (Manual) 1.2 Eosinophils # (Manual) 0.4 Metamyelocytes # 0.2 [place] Cells PRESENT Toxic Granulation PRESENT Platelet Estimate SLIGHTLY INCREASED Plt Morphology Comment NORMAL RBC Morphology NORMAL [place] Cells 1+ (0-2) Anion Gap 20 Estim Creat Clear Calc 8.5 Estimated GFR 7 POC Glucose 177 H Random Glucose 92 Fasting Glucose 92 Calcium 8.5 Total Bilirubin 0.6 AST 44 H ALT 75 H Alkaline Phosphatase 63 Total Creatine Kinase 665 H Total Protein 5.1 L Albumin 3.0 L Beta-Hydroxybutyrate/Acetoacetate Hep Bs Antigen Hep Bs Antibody Hep B Core Total Ab 07/06/22 07/06/22 06:01 07:24 MCV MCH MCHC RDW Plt Count MPV Immature Gran % (Auto) Neut % (Auto) Lymph % (Auto) [place] % (Auto) Eos % (Auto) Baso % (Auto) Lymph # (Auto) [place] # (Auto) Eos # (Auto) Baso # (Auto) Abs Immat Gran (auto) Absolute Neuts (auto) Absolute Nucleated RBC Nucleated RBC % (auto) Neutrophils % (Manual) Band Neutrophils % Lymphocytes % (Manual) Eosinophils % (Manual) Metamyelocytes % Abs Neuts (Manual) Lymphocytes # (Manual) Eosinophils # (Manual) Metamyelocytes # [place] Cells Toxic Granulation Platelet Estimate Plt Morphology Comment RBC Morphology [place] Cells Anion Gap Estim Creat Clear Calc Estimated GFR POC Glucose 87 Random Glucose Fasting Glucose Calcium Total Bilirubin AST ALT Alkaline Phosphatase Total Creatine Kinase Total Protein Albumin Beta-Hydroxybutyrate/Acetoacetate Hep Bs Antigen Negative Hep Bs Antibody NONREACTIVE Hep B Core Total Ab Nonreactive TTE 07/05/22 - Normal LV systolic function persistent regional wall motion? ? abnormality in mid to distal LAD territory ? Assessment and Plan (1) NSTEMI (non-ST elevated myocardial infarction): Status: Acute (2) Rhabdomyolysis: Status: Acute (3) Acute renal failure: Status: Acute Plan d#9 77yo F with DM, HTN, atrial flutter who fell in her bathroom and was down an estimated 24-36 hr. Found to be an JHONNY due to rhabdomyolysis, with NSTEMI. Intubated and subsequently required HD. 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 Quality Stroke Does the patient have a stroke diagnosis?: No VTE Prior VTE?: No VTE Risk Level:: Medical - moderate - high VTE Device Contraindication: N/A - Device Ordered VTE Drug Contraindication: Treatment Not Tolerated
--- NOTE | 2022-07-06 11:03 | PM.PNNEP ---
Subjective Subjective Date of Service: 07/07/22 Principal diagnosis: atrial flutter, NSTEMI Interval history: Events noted Physical Exam Vital Signs: Vital Signs: Last Vital Signs Temp 97.7 F 07/06/22 07:22 Pulse 51 07/06/22 07:22 Resp 20 07/06/22 07:22 BP 134/63 07/06/22 07:22 Pulse Ox 95 07/06/22 07:22 O2 Del Method 07/06/22 07:22 O2 Flow Rate 3 07/02/22 07:00 FiO2 30 07/01/22 09:00 BMI result Body Mass Index 28.8 Const: General: no acute distress HEENT: Head: Yes normocephalic and Yes atraumatic Neck: Neck: Yes supple Resp: Auscultation: diminished lung sounds Cardio: Rate: regular rate Heart sounds: S1 normal heart sound present and S2 normal heart sound present GI: Palpation (GI): Soft to palpation and nontender Neuro: Other: Sedated Extrem: General: No edema Objective Data Labs 07/06/22 06:01 07/06/22 06:01 Labs: Laboratory Results - last 24 hr 06/28/22 07/05/22 07/05/22 22:02 11:08 16:10 WBC RBC Hgb Hct MCV MCH MCHC RDW Plt Count MPV Immature Gran % (Auto) Neut % (Auto) Lymph % (Auto) [place] % (Auto) Eos % (Auto) Baso % (Auto) Lymph # (Auto) [place] # (Auto) Eos # (Auto) Baso # (Auto) Abs Immat Gran (auto) Absolute Neuts (auto) Absolute Nucleated RBC Nucleated RBC % (auto) Neutrophils % (Manual) Band Neutrophils % Lymphocytes % (Manual) Eosinophils % (Manual) Metamyelocytes % Abs Neuts (Manual) Lymphocytes # (Manual) Eosinophils # (Manual) Metamyelocytes # [place] Cells Toxic Granulation Platelet Estimate Plt Morphology Comment RBC Morphology [place] Cells Sodium Potassium Chloride Carbon Dioxide Anion Gap BUN Creatinine Estim Creat Clear Calc Estimated GFR POC Glucose 234 H 162 H Random Glucose Fasting Glucose Calcium Total Bilirubin AST ALT Alkaline Phosphatase Total Creatine Kinase Total Protein Albumin Beta-Hydroxybutyrate/Acetoacetate 6.69 H Hep Bs Antigen Hep Bs Antibody Hep B Core Total Ab 07/05/22 07/06/22 07/06/22 19:59 06:01 06:01 WBC 19.6 H RBC 3.82 L Hgb 10.9 L Hct 33.0 L MCV 86.4 MCH 28.5 MCHC 33.0 RDW 14.0 Plt Count 437 H MPV 9.7 Immature Gran % (Auto) Cancelled Neut % (Auto) Cancelled Lymph % (Auto) Cancelled [place] % (Auto) Cancelled Eos % (Auto) Cancelled Baso % (Auto) Cancelled Lymph # (Auto) Cancelled [place] # (Auto) Cancelled Eos # (Auto) Cancelled Baso # (Auto) Cancelled Abs Immat Gran (auto) Cancelled Absolute Neuts (auto) Cancelled Absolute Nucleated RBC 0.000 Nucleated RBC % (auto) 0.0 Neutrophils % (Manual) 85 H Band Neutrophils % 6 H Lymphocytes % (Manual) 6 L Eosinophils % (Manual) 2 Metamyelocytes % 1 Abs Neuts (Manual) 17.8 H Lymphocytes # (Manual) 1.2 Eosinophils # (Manual) 0.4 Metamyelocytes # 0.2 [place] Cells PRESENT Toxic Granulation PRESENT Platelet Estimate SLIGHTLY INCREASED Plt Morphology Comment NORMAL RBC Morphology NORMAL [place] Cells 1+ (0-2) Sodium 132 L Potassium 4.0 Chloride 99 Carbon Dioxide 17 L Anion Gap 20 BUN 67 H Creatinine 5.80 H* Estim Creat Clear Calc 8.5 Estimated GFR 7 POC Glucose 177 H Random Glucose 92 Fasting Glucose 92 Calcium 8.5 Total Bilirubin 0.6 AST 44 H ALT 75 H Alkaline Phosphatase 63 Total Creatine Kinase 665 H Total Protein 5.1 L Albumin 3.0 L Beta-Hydroxybutyrate/Acetoacetate Hep Bs Antigen Hep Bs Antibody Hep B Core Total Ab 07/06/22 07/06/22 06:01 07:24 WBC RBC Hgb Hct MCV MCH MCHC RDW Plt Count MPV Immature Gran % (Auto) Neut % (Auto) Lymph % (Auto) [place] % (Auto) Eos % (Auto) Baso % (Auto) Lymph # (Auto) [place] # (Auto) Eos # (Auto) Baso # (Auto) Abs Immat Gran (auto) Absolute Neuts (auto) Absolute Nucleated RBC Nucleated RBC % (auto) Neutrophils % (Manual) Band Neutrophils % Lymphocytes % (Manual) Eosinophils % (Manual) Metamyelocytes % Abs Neuts (Manual) Lymphocytes # (Manual) Eosinophils # (Manual) Metamyelocytes # [place] Cells Toxic Granulation Platelet Estimate Plt Morphology Comment RBC Morphology Ian Cells Sodium Potassium Chloride Carbon Dioxide Anion Gap BUN Creatinine Estim Creat Clear Calc Estimated GFR POC Glucose 87 Random Glucose Fasting Glucose Calcium Total Bilirubin AST ALT Alkaline Phosphatase Total Creatine Kinase Total Protein Albumin Beta-Hydroxybutyrate/Acetoacetate Hep Bs Antigen Negative Hep Bs Antibody NONREACTIVE Hep B Core Total Ab Nonreactive Microbiology Microbiology Results: Microbiology 06/28/22 15:42 Blood - Venous Blood Culture - Final No growth after 5 days. 06/28/22 13:59 Blood - Venous Blood Culture - Final No growth after 5 days. 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 Progress Note: Quality Stroke Does the patient have a stroke diagnosis?: No
--- NOTE | 2022-07-06 11:48 | MHC.CM.PN ---
Per ROUNDS discussion, Patient is not yet medically cleared for dc (stress test today, needs perma cath for HD); STR is now the goal (denied at all 3 Acute Rehabs)and CM will continue to follow.
[2022-07-06 12:03] LABS: Glucose, Whole Blood 154 mg/dL (60-115)
[2022-07-06] MEDS: Insulin Lispro 100 UNIT/ML 3 ML VIAL SUBCUT ×2 (12:05→21:59)
[2022-07-06 16:05] LABS: Glucose, Whole Blood 98 mg/dL (60-115)
--- NOTE | 2022-07-06 16:25 | P.PNCA_ITS ---
Subjective Subjective Date of Service: 07/06/22 <ERLIN Ernandez - Last Filed: 07/06/22 16:45> 07/06/22 <David Stone MD - Last Filed: 07/06/22 20:37> Principal diagnosis: atrial flutter, NSTEMI <ERLIN Ernandez - Last Filed: 07/06/22 16:45> Interval history: Seen at 1000. In stress lab this am, laying on stretcher. Reports feeling tired but denies having chest pains or sob. No heart palpitations or dizziness reported. blind hanger showing atrial flutter with rates 50-60s. Cr remains elevated, 5.8 today. She reports plan for dialysis later today. <ERLIN Ernandez - Last Filed: 07/06/22 16:45> Review of Systems Review of Systems as above <ERLIN Ernandez - Last Filed: 07/06/22 16:45> Yes all other systems are reviewed and are negative <ERLIN Ernandez - Last Filed: 07/06/22 16:45> Physical Exam Vital Signs: Last Vital Signs Temp 97.0 F 07/06/22 12:00 Pulse 66 07/06/22 12:00 Resp 18 07/06/22 12:00 BP 131/63 07/06/22 12:00 Pulse Ox 94 07/06/22 12:00 O2 Del Method 07/06/22 12:00 O2 Flow Rate 3 07/02/22 07:00 FiO2 30 07/01/22 09:00 BMI result Body Mass Index 28.8 <ERLIN Ernandez - Last Filed: 07/06/22 16:45> Const General: cooperative and no acute distress <ERLIN Ernandez Last Filed: 07/06/22 16:45> Orientation/consciousness: patient oriented x3 <ERLIN Ernandez Last Filed: 07/06/22 16:45> HEENT Head: Yes normal to inspection <ERLIN Ernandez Last Filed: 07/06/22 16:45> Neck Neck: Yes normal visual inspection and Yes no JVD <ERLIN Ernandez Last Filed: 07/06/22 16:45> Resp Effort & Inspection: normal respiratory effort <Renetta Crawford [facility] - Last Filed: 07/06/22 16:45> Auscultation: clear to auscultation bilaterally, no rhonchi and no wheezes <Renetta Crawford [facility] - Last Filed: 07/06/22 16:45> Cardio Rate: regular rate <Renetta Crawford [facility] - Last Filed: 07/06/22 16:45> Rhythm: regular rhythm <Renetta Crawford [facility] - Last Filed: 07/06/22 16:45> Heart sounds: S1 normal heart sound present, S2 normal heart sound present, no gallops, no murmurs and no rubs <Renetta Crawford [facility] - Last Filed: 07/06/22 16:45> Peripheral pulses: Peripheral pulses 2+ throughout <Renetta Crawford [facility] - Last Filed: 07/06/22 16:45> GI Inspection: Yes normal to inspection <Renetta Crawford [facility] - Last Filed: 07/06/22 16:45> Neuro General: patient oriented x3 <Renetta Crawford [facility] - Last Filed: 07/06/22 16:45> Extrem General: Yes normal to inspection <Renetta Crawford [facility] - Last Filed: 07/06/22 16:45> Psych Mental Status: mental status grossly normal <Renetta Crawford [facility] - Last Filed: 07/06/22 16:45> Speech and movement: Normal speech and movement present <Renetta Crawford [facility] - Last Filed: 07/06/22 16:45> Objective Labs and Meds Result diagrams: 07/06/22 06:01 07/06/22 06:01 <Renetta Crawford [facility] - Last Filed: 07/06/22 16:45> Lab results: Laboratory Results - last 24 hr 06/28/22 07/05/22 07/06/22 22:02 19:59 06:01 WBC 19.6 H RBC 3.82 L Hgb 10.9 L Hct 33.0 L MCV 86.4 MCH 28.5 MCHC 33.0 RDW 14.0 Plt Count 437 H MPV 9.7 Immature Gran % (Auto) Cancelled Neut % (Auto) Cancelled Lymph % (Auto) Cancelled Hand % (Auto) Cancelled Eos % (Auto) Cancelled Baso % (Auto) Cancelled Lymph # (Auto) Cancelled Hand # (Auto) Cancelled Eos # (Auto) Cancelled Baso # (Auto) Cancelled Abs Immat Gran (auto) Cancelled Absolute Neuts (auto) Cancelled Absolute Nucleated RBC 0.000 Nucleated RBC % (auto) 0.0 Neutrophils % (Manual) 85 H Band Neutrophils % 6 H Lymphocytes % (Manual) 6 L Eosinophils % (Manual) 2 Metamyelocytes % 1 Abs Neuts (Manual) 17.8 H Lymphocytes # (Manual) 1.2 Eosinophils # (Manual) 0.4 Metamyelocytes # 0.2 Smudge Cells PRESENT Toxic Granulation PRESENT Platelet Estimate SLIGHTLY INCREASED Plt Morphology Comment NORMAL RBC Morphology NORMAL Ian Cells 1+ (0-2) Sodium Potassium Chloride Carbon Dioxide Anion Gap BUN Creatinine Estim Creat Clear Calc Estimated GFR POC Glucose 177 H Random Glucose Fasting Glucose Calcium Total Bilirubin AST ALT Alkaline Phosphatase Total Creatine Kinase Total Protein Albumin Beta-Hydroxybutyrate/Acetoacetate 6.69 H Hep Bs Antigen Hep Bs Antibody Hep B Core Total Ab 07/06/22 07/06/22 07/06/22 06:01 06:01 07:24 WBC RBC Hgb Hct MCV MCH MCHC RDW Plt Count MPV Immature Gran % (Auto) Neut % (Auto) Lymph % (Auto) Hand % (Auto) Eos % (Auto) Baso % (Auto) Lymph # (Auto) Hand # (Auto) Eos # (Auto) Baso # (Auto) Abs Immat Gran (auto) Absolute Neuts (auto) Absolute Nucleated RBC Nucleated RBC % (auto) Neutrophils % (Manual) Band Neutrophils % Lymphocytes % (Manual) Eosinophils % (Manual) Metamyelocytes % Abs Neuts (Manual) Lymphocytes # (Manual) Eosinophils # (Manual) Metamyelocytes # Smudge Cells Toxic Granulation Platelet Estimate Plt Morphology Comment RBC Morphology Ian Cells Sodium 132 L Potassium 4.0 Chloride 99 Carbon Dioxide 17 L Anion Gap 20 BUN 67 H Creatinine 5.80 H* Estim Creat Clear Calc 8.5 Estimated GFR 7 POC Glucose 87 Random Glucose 92 Fasting Glucose 92 Calcium 8.5 Total Bilirubin 0.6 AST 44 H ALT 75 H Alkaline Phosphatase 63 Total Creatine Kinase 665 H Total Protein 5.1 L Albumin 3.0 L Beta-Hydroxybutyrate/Acetoacetate Hep Bs Antigen Negative Hep Bs Antibody NONREACTIVE Hep B Core Total Ab Nonreactive 07/06/22 07/06/22 12:00 16:03 WBC RBC Hgb Hct MCV MCH MCHC RDW Plt Count MPV Immature Gran % (Auto) Neut % (Auto) Lymph % (Auto) Hand % (Auto) Eos % (Auto) Baso % (Auto) Lymph # (Auto) Hand # (Auto) Eos # (Auto) Baso # (Auto) Abs Immat Gran (auto) Absolute Neuts (auto) Absolute Nucleated RBC Nucleated RBC % (auto) Neutrophils % (Manual) Band Neutrophils % Lymphocytes % (Manual) Eosinophils % (Manual) Metamyelocytes % Abs Neuts (Manual) Lymphocytes # (Manual) Eosinophils # (Manual) Metamyelocytes # Smudge Cells Toxic Granulation Platelet Estimate Plt Morphology Comment RBC Morphology Ian Cells Sodium Potassium Chloride Carbon Dioxide Anion Gap BUN Creatinine Estim Creat Clear Calc Estimated GFR POC Glucose 154 H 98 Random Glucose Fasting Glucose Calcium Total Bilirubin AST ALT Alkaline Phosphatase Total Creatine Kinase Total Protein Albumin Beta-Hydroxybutyrate/Acetoacetate Hep Bs Antigen Hep Bs Antibody Hep B Core Total Ab <ERLIN Ernandez - Last Filed: 07/06/22 16:45> Imaging Radiologist's impression: Impressions Myocardial Perfusion Scan Nuc Med 07/06/22 12:00 Impression: 1. Myocardial perfusion imaging study shows mixed ischemia/infarct pattern in the mid to distal inferolateral wall. 2. Gated LVEF is 59% during stress and 65% during rest. 3. Transient ischemic dilatation not present. EKG component of the test reported separately. <ERLIN Ernandez - Last Filed: 07/06/22 16:45> Progress Note: A&P Assessment and plan (1) NSTEMI (non-ST elevated myocardial infarction): Status: Acute <ERLIN Ernandez - Last Filed: 07/06/22 16:45> Assessment and Plan: Admit after fall with rhabdomyolysis. Has JHONNY and has required dialysis. She ruled in for NSTEMI which could be multifactorial: possibly secondary to JHONNY, acute illness, Takotsubo CMP and possible significant CAD. Initial echo 06/29/22 with EF 40-45%, apex akinetic. She did have a repeat echo yesterday with EF 60-65%, with WMA in mid to distal LAD territory. She is undergoing a nuclear stress test to evaluate for ischemia. Stress images obtained today and rest images will be obtained tomorrow. She denies having CP or sob presently. She is currently being managed medically with Plavix, Isordil, hydralazine, Metoprolol, Amlodipine. She is not on aspirin as she is on Eliquis. Will continue conservative care given her multiple medical issues and frailty. We plan to review stress test results when available. We will follow. <ERLIN Ernandez - Last Filed: 07/06/22 16:45> Admit after fall with rhabdomyolysis. Has JHONNY and has required dialysis. She ruled in for NSTEMI which could be multifactorial: possibly secondary to JHONNY, acute illness, Takotsubo CMP and possible significant CAD. Initial echo 06/29/22 with EF 40-45%, apex akinetic. She did have a repeat echo yesterday with EF 60-65%, with WMA in mid to distal LAD territory. She is undergoing a nuclear stress test to evaluate for ischemia. Stress images obtained today and rest images will be obtained tomorrow. She denies having CP or sob presently. She is currently being managed medically with Plavix, Isordil, hydralazine, Metoprolol, Amlodipine. She is not on aspirin as she is on Eliquis. Will continue conservative care given her multiple medical issues and frailty. We plan to review stress test results when available. We will follow. Patient discussed with Renetta. No cardiac symptoms at present. Stree MIBI showing distal infero;ateral [place]/ischemia, brnach vessel in LCx distribution. Medical therapy will be pursued with metoprolol, amlodipine, statins and Eliquis. May discharge on medical therapy <Dvaid Stone MD - Last Filed: 07/06/22 20:37> (2) Atrial flutter: Status: Acute <ERLIN Ernandez - Last Filed: 07/06/22 16:45> Assessment and Plan: Persistent atrial flutter. Rate controlled with Metoprolol. She denies heart palpitations. On Eliquis at renal dose for anticoagulation. No bleeding issues noted. Ongoing tele monitoring while inpt. <ERLIN Ernandez - Last Filed: 07/06/22 16:45> Persistent atrial flutter. Rate controlled with Metoprolol. She denies heart palpitations. On Eliquis at renal dose for anticoagulation. No bleeding issues noted. Ongoing tele monitoring while inpt. Plan as above <David Stone MD - Last Filed: 07/06/22 20:37> Time Spent With Patient Time: Total time managing care of this patient today _22___ minutes. <ERLIN Ernandez - Last Filed: 07/06/22 16:45> Progress Note: Quality Stroke Does the patient have a stroke diagnosis?: No <ERLIN Ernandez - Last Filed: 07/06/22 16:45> Procedures Date of Service Date of Service: 07/06/22 <ERLIN Ernandez - Last Filed: 07/06/22 16:45>
[2022-07-06] MEDS: Nystatin Oral Susp 500,000 UNIT/5 ML ORAL.SUSP 100000 UNIT BUCCAL ×2 (16:50→20:53)
[2022-07-06] MEDS: hydrALAZINE HCl 25 MG TABLET PO ×2 (16:51→20:53)
[2022-07-06] MEDS: Isosorbide Dinitrate 10 MG TABLET PO (16:51)
[2022-07-06 19:52] LABS: Glucose, Whole Blood 193 mg/dL (60-115)
[2022-07-06] MEDS: Metoprolol Tartrate 12.5 MG HALFTAB PO (20:53)
[2022-07-06] MEDS: Cholestyramine (With Sugar) 4 GM POWD.PACK 2 GM PO (20:53)
[2022-07-07 03:41] VITALS: BP 132/42; PULSE 55; RESP 15; TEMP 35.9; O2SAT 95
[2022-07-07 05:52] VITALS: BMI 29.0
[2022-07-07 07:54] VITALS: BP 138/65; PULSE 51; RESP 20; TEMP 36.6; O2SAT 95
[2022-07-07 08:06] LABS: Glucose, Whole Blood 146 mg/dL (60-115)
[2022-07-07] MEDS: Nystatin Oral Susp 500,000 UNIT/5 ML ORAL.SUSP 100000 UNIT BUCCAL ×3 (09:27→20:35)
[2022-07-07] MEDS: Clopidogrel Bisulfate 75 MG TABLET PO (09:27)
[2022-07-07] MEDS: hydrALAZINE HCl 25 MG TABLET PO ×3 (09:27→20:36)
[2022-07-07] MEDS: amLODIPine Besylate 10 MG TABLET PO (09:27)
[2022-07-07] MEDS: Isosorbide Dinitrate 10 MG TABLET PO ×3 (09:27→16:37)
[2022-07-07] MEDS: Metoprolol Tartrate 12.5 MG HALFTAB PO ×2 (09:27→20:36)
[2022-07-07] MEDS: Insulin Glargine,Hum.rec.anlog 100 UNIT/ML 10 ML VIAL 30 UNIT SUBCUT (09:28)
--- NOTE | 2022-07-07 10:54 | HO.PM.IMPN ---
Subjective Subjective Date of Service: 07/07/22 Physical Exam Vital Signs: Vital Signs: Last Vital Signs Temp 97.8 F 07/07/22 07:54 Pulse 51 07/07/22 07:54 Resp 20 07/07/22 07:54 BP 138/65 07/07/22 07:54 Pulse Ox 95 07/07/22 07:54 O2 Del Method 07/07/22 07:54 O2 Flow Rate 3 07/02/22 07:00 FiO2 30 07/01/22 09:00 BMI result Body Mass Index 29.0 Gen: in no acute distress HEENT: sclera anicteric, moist mucus membranes Neck: supple, RIJ HD catheter Lungs: clear to auscultation bilaterally Heart: regular, no murmurs Abd: soft, non-tender, non-distended Ext: no edema Skin: warm/well-perfused Neuro: alert and oriented x3, no focal findings Psych: appropriate affect Objective Data Active Medications Acetaminophen (Acetaminophen 325 Mg Tablet) 650 mg PO Q6H PRN PRN Reason: Pain, Moderate (Pain Scale 4-6 Last Admin: 07/01/22 19:41 Dose: 650 mg Documented By: LUKAS Amlodipine Besylate (Amlodipine Besylate 10 Mg Tablet) 10 mg PO DAILY [facility]; Protocol Last Admin: 07/07/22 09:27 Dose: 10 mg Documented By: BUDDY Apixaban (Apixaban 2.5 Mg Tablet) 2.5 mg PO BID [facility] Last Admin: 07/06/22 09:49 Dose: Not Given Documented By: FREDDIE Non-Admin Reason: Off Unit: Surgery Clonazepam (Clonazepam 0.5 Mg Tablet) 0.5 mg PO TID PRN PRN Reason: Anxiety Last Admin: 07/05/22 21:26 Dose: 0.5 mg Documented By: LILLIAN Clopidogrel Bisulfate (Clopidogrel Bisulfate 75 Mg Tablet) 75 mg PO DAILY [facility] Last Admin: 07/07/22 09:27 Dose: 75 mg Documented By: BUDDY Dextrose (Dextrose 50 % 25 Gm/50 Ml Syringe) 25 gm IVPUSH Q30M PRN PRN Reason: Nursing Actions in Insulin Infusion Protocol Hydralazine HCl (Hydralazine Hcl 25 Mg Tablet) 25 mg PO TID [facility]; Protocol Last Admin: 07/07/22 09:27 Dose: 25 mg Documented By: BUDDY Insulin Glargine (Insulin Glargine,Hum.Rec.Anlog 100 Unit/Ml 10 Ml Vial) 30 unit SUBCUT DAILY [facility] Last Admin: 07/07/22 09:28 Dose: 30 unit Documented By: BUDDY Insulin Human Lispro (Insulin Lispro 100 Unit/Ml 3 Ml Vial) 0.1 - 10 unit SUBCUT QIDACHS [facility]; Protocol Last Admin: 07/07/22 08:15 Dose: Not Given Documented By: BUDDY Non-Admin Reason: No Insulin Coverage Isosorbide Dinitrate (Isosorbide Dinitrate 10 Mg Tablet) 10 mg PO TID@0800,1300,1800 [facility]; Protocol Last Admin: 07/07/22 09:27 Dose: 10 mg Documented By: BUDDY Loperamide HCl (Loperamide Hcl 2 Mg Capsule) 2 mg PO Q4H PRN PRN Reason: diarrhea Melatonin (Melatonin 3 Mg Tablet) 6 mg PO BEDTIME PRN PRN Reason: insomnia Last Admin: 07/05/22 21:26 Dose: 6 mg Documented By: LILLIAN Metoprolol Tartrate (Metoprolol Tartrate 12.5 Mg Halftab) 12.5 mg PO BID [facility]; Protocol Last Admin: 07/07/22 09:27 Dose: 12.5 mg Documented By: BUDDY Morphine Sulfate (Morphine Sulfate 4 Mg/Ml Cartridge) 3 mg IVPUSH Q3H PRN; Protocol PRN Reason: Pain, Severe (Pain Scale 7-10) Nitroglycerin (Nitroglycerin 0.4 Mg Tab.Subl) 0.4 mg SUBLINGUAL Q5MX3 PRN PRN Reason: Chest Pain Nystatin (Nystatin Oral Susp 500,000 Unit/5 Ml Oral.Susp) 100,000 unit BUCCAL TID [facility]; Protocol Last Admin: 07/07/22 09:27 Dose: 100,000 unit Documented By: BUDDY Labs 07/06/22 06:01 07/06/22 06:01 Labs: Laboratory Results - last 24 hr 07/06/22 07/06/22 07/06/22 12:00 16:03 19:48 POC Glucose 154 H 98 193 H 07/07/22 07:56 POC Glucose 146 H Assessment and Plan (1) NSTEMI (non-ST elevated myocardial infarction): Status: Acute (2) Rhabdomyolysis: Status: Acute (3) Acute renal failure: Status: Acute Plan d#10 77yo F with DM, HTN, atrial flutter who fell in her bathroom and was down an estimated 24-36 hr. Found to be an JHONNY due to rhabdomyolysis, with NSTEMI. Intubated and subsequently required HD. Extubated and stepped down to C 07/02/22. Now HD-dependent. Also has positive stress MIBI. # NSTEMI - persistent WMA on repeat TTE, nuclear stress test with mixed ischemia/infarct pattern in the mid to distal inferolateral wall. 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 # acute metabolic acidosis # rhabdomyolysis - Nephro following, on HD MWF, awaiting renal recovery- will convert to Permacath- scheduled for 07/11/22 - CPK now well below 1000 # atrial flutter - rate-controlled on metoprolol, continue apixaban [apixaban on hold for Permacath placement] # HTN - continue metoprolol + amlodipine; Isordil + hydralazine as above # DM2 - basal-bolus insulin # L elbow wound - Wound Care consult # VTE ppx: apixaban [on hold for Permacath placement] # dispo: will eventually need AIR In my clinical judgment, the patient requires continued inpatient hospitalization for the following reasons: JHONNY, NSTEMI Daughter Mitzi updated by phone yesterday Time Spent With Patient Time: Total time managing care of this patient today _50___ minutes. Quality Stroke Does the patient have a stroke diagnosis?: No VTE Prior VTE?: No VTE Risk Level:: Medical - moderate - high VTE Device Contraindication: N/A - Device Ordered VTE Drug Contraindication: Treatment Not Tolerated
[2022-07-07 11:30] LABS: Glucose, Whole Blood 213 mg/dL (60-115)
[2022-07-07 12:00] VITALS: BP 124/60; PULSE 63; RESP 20; TEMP 36.6; O2SAT 95
--- NOTE | 2022-07-07 12:14 | P.CONWO_ITS ---
History of Present Illness Data of Consult Service Date: 07/07/22 Requesting physician: Valeriano Pichardo Primary Care Provider: Nayan Pavon MD [facility] Reason for consult: left elbow wound [id number]: 77-year-old female out of the ICU now intermed care unit, after fall in the bathroom with unclear down time, DKA and renal failure upon admission confounded by left lower lobe pneumonia. On Eliquis for aflutter. Denies history of stroke with neurologic deficit. Requires cues for orientation . Most recently seen by Nephrology. Currently in pursuit of ACS/non STEMI work up per documentation. Denies shortness of breath and chest pain right now. Dry clean gauze is removed from the left elbow. Denies localized pain to left elbow. Thinks she may have dragged along the carpet to get help when she fell. Sees Dr. Paul for knee arthritis per her report but no recent surgery reported. Central line catheter observed in right IJ. On modified diet to include thickened liquids. Review of Systems Review of Systems: No left elbow pain. Denies fever/chills. No chest pain or shortness of breath. Yes all other systems are reviewed and are negative [facility] Medical History Hypercholesterolemia Hypertension Insomnia Obesity (BMI 30.0-34.9) Osteoarthrosis Overweight (BMI 25.0-29.9) Primary osteoarthritis of left knee Second degree AV block Tobacco abuse Type 2 diabetes mellitus with hyperglycemia Family History Father Cancer Mother Medical history unknown Brother Liver cancer Sister Hypertension COPD (chronic obstructive pulmonary disease) Surgical History H/O breast reconstruction History of cholecystectomy History of hip replacement History of tonsillectomy Social History Household Members: Significant Other Housing: Apartment Do you presently have visiting nurse or other home services: No Alcohol intake: former Patient Tobacco Use Status: Former Tobacco user Tobacco use type: Cigarette Cigarettes Per Day: 2 e-Cigarette/Vaping Use: Never Used Second Hand Smoke Exposure: No service: No Current occupational status: retired Current occupation: Right Handed Cognitive needs: No Hearing needs: No Vision needs: Yes Meds Allergies Allergy/AdvReac Type Severity Reaction Status Date / Time No Known Allergies Allergy Verified 04/19/22 10:33 [No Known Allergies*] Active Medications: Current Medications Acetaminophen (Acetaminophen 325 Mg Tablet) 650 mg PO Q6H PRN PRN Reason: Pain, Moderate (Pain Scale 4-6 Last Admin: 07/01/22 19:41 Dose: 650 mg Amlodipine Besylate (Amlodipine Besylate 10 Mg Tablet) 10 mg PO DAILY [facility]; Protocol Last Admin: 07/07/22 09:27 Dose: 10 mg Apixaban (Apixaban 2.5 Mg Tablet) 2.5 mg PO BID [facility] Last Admin: 07/06/22 09:49 Dose: Not Given Clonazepam (Clonazepam 0.5 Mg Tablet) 0.5 mg PO TID PRN PRN Reason: Anxiety Last Admin: 07/05/22 21:26 Dose: 0.5 mg Clopidogrel Bisulfate (Clopidogrel Bisulfate 75 Mg Tablet) 75 mg PO DAILY [facility] Last Admin: 07/07/22 09:27 Dose: 75 mg Dextrose (Dextrose 50 % 25 Gm/50 Ml Syringe) 25 gm IVPUSH Q30M PRN PRN Reason: Nursing Actions in Insulin Infusion Protocol Hydralazine HCl (Hydralazine Hcl 25 Mg Tablet) 25 mg PO TID [facility]; Protocol Last Admin: 07/07/22 09:27 Dose: 25 mg Insulin Glargine (Insulin Glargine,Hum.Rec.Anlog 100 Unit/Ml 10 Ml Vial) 30 unit SUBCUT DAILY [facility] Last Admin: 07/07/22 09:28 Dose: 30 unit Insulin Human Lispro (Insulin Lispro 100 Unit/Ml 3 Ml Vial) 0.1 - 10 unit SUBCUT QIDACHS [facility]; Protocol Last Admin: 07/07/22 08:15 Dose: Not Given Isosorbide Dinitrate (Isosorbide Dinitrate 10 Mg Tablet) 10 mg PO TID@0800,1300,1800 [facility]; Protocol Last Admin: 07/07/22 09:27 Dose: 10 mg Loperamide HCl (Loperamide Hcl 2 Mg Capsule) 2 mg PO Q4H PRN PRN Reason: diarrhea Melatonin (Melatonin 3 Mg Tablet) 6 mg PO BEDTIME PRN PRN Reason: insomnia Last Admin: 07/05/22 21:26 Dose: 6 mg Metoprolol Tartrate (Metoprolol Tartrate 12.5 Mg Halftab) 12.5 mg PO BID [facility]; Protocol Last Admin: 07/07/22 09:27 Dose: 12.5 mg Morphine Sulfate (Morphine Sulfate 4 Mg/Ml Cartridge) 3 mg IVPUSH Q3H PRN; Protocol PRN Reason: Pain, Severe (Pain Scale 7-10) Nitroglycerin (Nitroglycerin 0.4 Mg Tab.Subl) 0.4 mg SUBLINGUAL Q5MX3 PRN PRN Reason: Chest Pain Nystatin (Nystatin Oral Susp 500,000 Unit/5 Ml Oral.Susp) 100,000 unit BUCCAL TID [facility]; Protocol Last Admin: 07/07/22 09:27 Dose: 100,000 unit Home Medications Medication Instructions Recorded Confirmed Last Taken Type clonazepam 1 mg tablet (Klonopin) 1 mg PO BID 07/16/20 06/28/22 Unknown History hydroxyzine HCl 25 mg tablet 25 mg PO BID PRN Anxiety 03/10/22 06/28/22 Unknown History cholestyramine-aspartame 4 gram 1 ea PO BID diarrhea 06/28/22 06/28/22 Unknown History oral powder (Cholestyramine Light) diclofenac sodium 1 % topical gel 4 g topical QID PRN Pain 06/28/22 06/28/22 Unknown History (Voltaren Arthritis Pain) glipizide 5 mg tablet 1 tab PO DAILY 06/28/22 06/28/22 Unknown History sertraline 100 mg tablet 1 tab PO DAILY 06/28/22 06/28/22 Unknown History Physical Exam Vital Signs and Narrative: Vital Signs: Last Vital Signs Temp 97.8 F 07/07/22 07:54 Pulse 51 07/07/22 07:54 Resp 20 07/07/22 07:54 BP 138/65 07/07/22 07:54 Pulse Ox 95 07/07/22 07:54 O2 Del Method 07/07/22 07:54 O2 Flow Rate 3 07/02/22 07:00 FiO2 30 07/01/22 09:00 BMI result Body Mass Index 29.0 No focal edema of the left elbow to suggest acute fracture. Moderate lateral epicondylar pain to palpation but medial epicondyle and olecranon bursa palpation do not cause pain. She can pronate and supinate without pain, mild restriction with extension but near full extension achieved passively. Eschar of biceps is dry and intact. Large wet area of slough directly over olecranon is associated with 2 cm blister/seroma which expresses serous drainage. No warmth or streaking to suggest cellulititis. Surrounding periwound is abraded, possibly from carpet burn , partial thickness at the perimeter but could be full thickness beneath large intact blister. One ponders the possibility of septic arthritis as opposed to just localized trauma given longevity of hospital stay. No suggestion of pressure, friction or shear from bedding as contributing factor. Results Labs 07/06/22 06:01 07/06/22 06:01 Labs: Laboratory Results - last 24 hr 07/06/22 07/06/22 07/07/22 16:03 19:48 07:56 POC Glucose 98 193 H 146 H 07/07/22 11:24 POC Glucose 213 H Imaging Radiologist's Impressions: Impressions Myocardial Perfusion Scan Nuc Med 07/06/22 12:00 Impression: 1. Myocardial perfusion imaging study shows mixed ischemia/infarct pattern in the mid to distal inferolateral wall. 2. Gated LVEF is 59% during stress and 65% during rest. 3. Transient ischemic dilatation not present. EKG component of the test reported separately. Assessment and Plan (1) Abrasion of left elbow: Status: Acute Plan 77-year-old female with medical complexity to include ACS/ non STEMI with ?torsades documented after unwitnessed trauma, followed closely for renal insufficiency after bout of dehydration and ketoacidosis with prolonged down time. If clinical picture allows, a left elbow x-ray may be indicated to rule out fracture in the setting of unwitnessed trauma. She does not have clinical olecranon fracture but septic arthritis might be a consideration verses local ized large serous draining blister. Silver alginate cut to fit the open wound is the best topical dressing. This will help manage drainage and keep the area affected clean and dry. Secondary dressing of gauze in either [place] wrap or spandage. Wound care follow up is appropriate after discharge or orthopedics, particularly if left elbow XR is abnormal. Time Spent With Patient Time: Total time managing care of this patient today ____ minutes.
[2022-07-07] MEDS: Insulin Lispro 100 UNIT/ML 3 ML VIAL SUBCUT ×3 (12:16→20:41)
--- NOTE | 2022-07-07 13:55 | PM.PNNEP ---
Subjective Subjective Date of Service: 07/07/22 Principal diagnosis: atrial flutter, NSTEMI Interval history: Events noted Physical Exam Vital Signs: Vital Signs: Last Vital Signs Temp 97.9 F 07/07/22 12:00 Pulse 63 07/07/22 12:00 Resp 20 07/07/22 12:00 BP 124/60 07/07/22 12:00 Pulse Ox 95 07/07/22 12:00 O2 Del Method 07/07/22 12:00 O2 Flow Rate 3 07/02/22 07:00 FiO2 30 07/01/22 09:00 BMI result Body Mass Index 29.0 Const: General: no acute distress HEENT: Head: Yes normocephalic and Yes atraumatic Neck: Neck: Yes supple Resp: Auscultation: diminished lung sounds Cardio: Rate: regular rate Heart sounds: S1 normal heart sound present and S2 normal heart sound present GI: Palpation (GI): Soft to palpation and nontender Neuro: Other: Sedated Extrem: General: No edema Objective Data Labs 07/06/22 06:01 07/06/22 06:01 Labs: Laboratory Results - last 24 hr 07/06/22 07/06/22 07/07/22 16:03 19:48 07:56 POC Glucose 98 193 H 146 H 07/07/22 11:24 POC Glucose 213 H Microbiology Microbiology Results: Microbiology 06/28/22 15:42 Blood - Venous Blood Culture - Final No growth after 5 days. 06/28/22 13:59 Blood - Venous Blood Culture - Final No growth after 5 days. 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 Progress Note: Quality Stroke Does the patient have a stroke diagnosis?: No
[2022-07-07 14:56] VITALS: BP 160/70; PULSE 66; RESP 20; TEMP 36.1; O2SAT 97
[2022-07-07 16:10] LABS: Glucose, Whole Blood 157 mg/dL (60-115)
[2022-07-07 20:00] VITALS: BP 137/61; PULSE 61; RESP 20; TEMP 36.4; O2SAT 96
[2022-07-07] MEDS: Cholestyramine (With Sugar) 4 GM POWD.PACK PO (20:34)
[2022-07-07] MEDS: Melatonin 3 MG TABLET 6 MG PO (20:36)
[2022-07-07] MEDS: clonazePAM 0.5 MG TABLET PO (20:36)
[2022-07-07 20:43] LABS: Glucose, Whole Blood 190 mg/dL (60-115)
[2022-07-08] VITALS (7 sets, daily range): BP systolic 118–154; BP diastolic 58–69; PULSE 43–94; RESP 16–20; TEMP 36.3–37.2; O2SAT 94–96
[2022-07-08 07:00] LABS: Hematocrit 32.4 % (37.0-47.0); Hemoglobin 10.8 g/dl (12.0-16.0); Mean Corpuscular HGB Conc 33.3 g/dl (31.0-35.0); Mean Corpuscular Hemoglobin 28.2 pg (27.0-33.0); Mean Corpuscular Volume 84.6 fL (80.0-98.0); Mean Platelet Volume 9.4 fL (9.4-12.3); Platelet Count 448 X10*3/uL (160-400); Red Blood Count 3.83 X10*6/uL (4.20-5.50); Red Cell Distribution Width 14.3 % (11.0-16.0); White Blood Count 20.1 X10*3/uL (4.8-10.8)
[2022-07-08 07:18] LABS: Anion Gap 20 (12-20); Blood Urea Nitrogen 62 mg/dL (9-16); Calcium 8.2 mg/dL (8.4-10.2); Carbon Dioxide 16 mmol/L (22-29); Chloride 98 mmol/L (96-108); Creatinine Clr Calc Pharmacy 8.1; Estimated Glomerular Filt Rate 7; Glucose Random 123 mg/dL (60-115); Potassium 4.3 mmol/L (3.3-5.1); Sodium 130 mmol/L (135-145)
[2022-07-08 07:26] LABS: INTERNATIONAL NORM RATIO 1.1 (0.9-1.1); Prothrombin Time 12.3 SEC (10.0-13.1)
[2022-07-08 07:28] LABS: Partial Thromboplastin Time 29.2 SEC (26.0-36.4)
[2022-07-08 07:41] LABS: Glucose, Whole Blood 135 mg/dL (60-115)
[2022-07-08] MEDS: Insulin Glargine,Hum.rec.anlog 100 UNIT/ML 10 ML VIAL 30 UNIT SUBCUT (08:14)
[2022-07-08] MEDS: Nystatin Oral Susp 500,000 UNIT/5 ML ORAL.SUSP 100000 UNIT BUCCAL ×3 (08:14→21:05)
--- NOTE | 2022-07-08 08:20 | PC.NURSE ---
Pt off unit at this time; pt at dialysis. Blood pressure medication held at this time per Unique Brown
--- NOTE | 2022-07-08 11:12 | PM.PNNEP ---
Subjective Subjective Date of Service: 07/08/22 Principal diagnosis: atrial flutter, NSTEMI Interval history: Events noted Seen on HD Physical Exam Vital Signs: Vital Signs: Last Vital Signs Temp 97.5 F 07/08/22 07:19 Pulse 50 07/08/22 07:19 Resp 20 07/08/22 07:19 BP 154/69 H 07/08/22 07:19 Pulse Ox 94 07/08/22 07:19 O2 Del Method 07/08/22 07:19 O2 Flow Rate 3 07/02/22 07:00 FiO2 30 07/01/22 09:00 BMI result Body Mass Index 29.0 Const: General: no acute distress HEENT: Head: Yes normocephalic and Yes atraumatic Neck: Neck: Yes supple Resp: Auscultation: diminished lung sounds Cardio: Rate: regular rate Heart sounds: S1 normal heart sound present and S2 normal heart sound present GI: Palpation (GI): Soft to palpation and nontender Neuro: Other: Sedated Extrem: General: No edema Objective Data Labs 07/08/22 06:45 07/08/22 06:45 Labs: Laboratory Results - last 24 hr 07/07/22 07/07/22 07/07/22 11:24 16:03 20:35 WBC RBC Hgb Hct MCV MCH MCHC RDW Plt Count MPV Absolute Nucleated RBC Nucleated RBC % (auto) PT INR APTT Sodium Potassium Chloride Carbon Dioxide Anion Gap BUN Creatinine Estim Creat Clear Calc Estimated GFR POC Glucose 213 H 157 H 190 H Random Glucose Calcium 07/08/22 07/08/22 07/08/22 06:45 06:45 06:45 WBC 20.1 H RBC 3.83 L Hgb 10.8 L Hct 32.4 L MCV 84.6 MCH 28.2 MCHC 33.3 RDW 14.3 Plt Count 448 H MPV 9.4 Absolute Nucleated RBC 0.000 Nucleated RBC % (auto) 0.0 PT 12.3 INR 1.1 APTT 29.2 Sodium 130 L Potassium 4.3 Chloride 98 Carbon Dioxide 16 L Anion Gap 20 BUN 62 H Creatinine 6.16 H* Estim Creat Clear Calc 8.1 Estimated GFR 7 POC Glucose Random Glucose 123 H Calcium 8.2 L 07/08/22 07:32 WBC RBC Hgb Hct MCV MCH MCHC RDW Plt Count MPV Absolute Nucleated RBC Nucleated RBC % (auto) PT INR APTT Sodium Potassium Chloride Carbon Dioxide Anion Gap BUN Creatinine Estim Creat Clear Calc Estimated GFR POC Glucose 135 H Random Glucose Calcium Microbiology Microbiology Results: Microbiology 06/28/22 15:42 Blood - Venous Blood Culture - Final No growth after 5 days. 06/28/22 13:59 Blood - Venous Blood Culture - Final No growth after 5 days. 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 Progress Note: Quality Stroke Does the patient have a stroke diagnosis?: No
--- NOTE | 2022-07-08 11:30 | PC.NURSE ---
Pt back from dialysis at this time. Blood pressure checked; morning b.p medication given at this time. Blood pressure reassessed and within normal limits.
[2022-07-08 11:49] LABS: Glucose, Whole Blood 120 mg/dL (60-115)
[2022-07-08] MEDS: hydrALAZINE HCl 25 MG TABLET PO ×2 (12:05→21:04)
[2022-07-08] MEDS: Isosorbide Dinitrate 10 MG TABLET PO ×2 (12:05→17:13)
[2022-07-08] MEDS: amLODIPine Besylate 10 MG TABLET PO (12:05)
[2022-07-08] MEDS: Metoprolol Tartrate 12.5 MG HALFTAB PO ×2 (12:05→21:04)
--- NOTE | 2022-07-08 13:31 | HO.PM.IMPN ---
Subjective Subjective Date of Service: 07/08/22 Review of Systems Follow up nstemi no pain abd felt gassy she stated Physical Exam Vital Signs: Vital Signs: Last Vital Signs Temp 98.6 F 07/08/22 11:49 Pulse 60 07/08/22 11:49 Resp 20 07/08/22 11:49 BP 135/63 07/08/22 11:49 Pulse Ox 95 07/08/22 11:49 O2 Del Method 07/08/22 11:49 O2 Flow Rate 3 07/02/22 07:00 FiO2 30 07/01/22 09:00 BMI result Body Mass Index 29.0 Appearing in no acute distress head is normocephalic atraumatic eyes pupils are PERRLA sclera is anicteric mouth throat mucous membranes are intact and moist neck is supple no lymphadenopathy, no JVD noted lung sounds are clear to auscultation heart regular rate rhythm, clear S1, S2 positive bowel sounds, abdomen is soft, nontender neuro patient is alert x3, no focal deficits Objective Data Active Medications Acetaminophen (Acetaminophen 325 Mg Tablet) 650 mg PO Q6H PRN PRN Reason: Pain, Moderate (Pain Scale 4-6 Last Admin: 07/01/22 19:41 Dose: 650 mg Documented By: LUKAS Amlodipine Besylate (Amlodipine Besylate 10 Mg Tablet) 10 mg PO DAILY [facility]; Protocol Last Admin: 07/08/22 12:05 Dose: 10 mg Documented By: BUDDY Apixaban (Apixaban 2.5 Mg Tablet) 2.5 mg PO BID [facility] Last Admin: 07/06/22 09:49 Dose: Not Given Documented By: FREDDIE Non-Admin Reason: Off Unit: Surgery Clonazepam (Clonazepam 0.5 Mg Tablet) 0.5 mg PO TID PRN PRN Reason: Anxiety Last Admin: 07/07/22 20:36 Dose: 0.5 mg Documented By: MARLEN Clopidogrel Bisulfate (Clopidogrel Bisulfate 75 Mg Tablet) 75 mg PO DAILY [facility] Last Admin: 07/07/22 09:27 Dose: 75 mg Documented By: BUDDY Dextrose (Dextrose 50 % 25 Gm/50 Ml Syringe) 25 gm IVPUSH Q30M PRN PRN Reason: Nursing Actions in Insulin Infusion Protocol Hydralazine HCl (Hydralazine Hcl 25 Mg Tablet) 25 mg PO TID [facility]; Protocol Last Admin: 07/08/22 12:05 Dose: 25 mg Documented By: BUDDY Insulin Glargine (Insulin Glargine,Hum.Rec.Anlog 100 Unit/Ml 10 Ml Vial) 30 unit SUBCUT DAILY [facility] Last Admin: 07/08/22 08:14 Dose: 30 unit Documented By: BUDDY Insulin Human Lispro (Insulin Lispro 100 Unit/Ml 3 Ml Vial) 0.1 - 10 unit SUBCUT QIDACHS [facility]; Protocol Last Admin: 07/08/22 12:01 Dose: Not Given Documented By: BUDDY Non-Admin Reason: No Insulin Coverage Isosorbide Dinitrate (Isosorbide Dinitrate 10 Mg Tablet) 10 mg PO TID@0800,1300,1800 [facility]; Protocol Last Admin: 07/08/22 12:05 Dose: 10 mg Documented By: BUDDY Loperamide HCl (Loperamide Hcl 2 Mg Capsule) 2 mg PO Q4H PRN PRN Reason: diarrhea Melatonin (Melatonin 3 Mg Tablet) 6 mg PO BEDTIME PRN PRN Reason: insomnia Last Admin: 07/07/22 20:36 Dose: 6 mg Documented By: MARLEN Metoprolol Tartrate (Metoprolol Tartrate 12.5 Mg Halftab) 12.5 mg PO BID [facility]; Protocol Last Admin: 07/08/22 12:05 Dose: 12.5 mg Documented By: BUDDY Nitroglycerin (Nitroglycerin 0.4 Mg Tab.Subl) 0.4 mg SUBLINGUAL Q5MX3 PRN PRN Reason: Chest Pain Nystatin (Nystatin Oral Susp 500,000 Unit/5 Ml Oral.Susp) 100,000 unit BUCCAL TID [facility]; Protocol Last Admin: 07/08/22 08:14 Dose: 100,000 unit Documented By: BUDDY Labs 07/08/22 06:45 07/08/22 06:45 Labs: Laboratory Results - last 24 hr 07/07/22 07/07/22 07/08/22 16:03 20:35 06:45 MCV 84.6 MCH 28.2 MCHC 33.3 RDW 14.3 Plt Count 448 H MPV 9.4 Absolute Nucleated RBC 0.000 Nucleated RBC % (auto) 0.0 PT INR APTT Anion Gap Estim Creat Clear Calc Estimated GFR POC Glucose 157 H 190 H Random Glucose Calcium 07/08/22 07/08/22 07/08/22 06:45 06:45 07:32 MCV MCH MCHC RDW Plt Count MPV Absolute Nucleated RBC Nucleated RBC % (auto) PT 12.3 INR 1.1 APTT 29.2 Anion Gap 20 Estim Creat Clear Calc 8.1 Estimated GFR 7 POC Glucose 135 H Random Glucose 123 H Calcium 8.2 L 07/08/22 11:45 MCV MCH MCHC RDW Plt Count MPV Absolute Nucleated RBC Nucleated RBC % (auto) PT INR APTT Anion Gap Estim Creat Clear Calc Estimated GFR POC Glucose 120 H Random Glucose Calcium Assessment and Plan (1) NSTEMI (non-ST elevated myocardial infarction): Status: Acute Plan 77yo F with DM, HTN, atrial flutter who fell in her bathroom and was down an estimated 24-36 hr.? Found to be an JHONNY due to rhabdomyolysis, with NSTEMI.? Intubated and subsequently required HD.? Extubated and stepped down to [facility] 07/02/22.? Now HD-dependent.? Also has positive stress MIBI. 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 Garcia In my clinical judgment, the patient requires continued inpatient hospitalization for the following reasons: JHONNY, NSTEMI Time Spent With Patient Time: Total time managing care of this patient today ____ minutes. Quality Stroke Does the patient have a stroke diagnosis?: No VTE Prior VTE?: No VTE Risk Level:: Medical - moderate - high VTE Device Contraindication: N/A - Device Ordered VTE Drug Contraindication: Treatment Not Tolerated
[2022-07-08 15:58] LABS: Glucose, Whole Blood 168 mg/dL (60-115)
[2022-07-08] MEDS: Insulin Lispro 100 UNIT/ML 3 ML VIAL SUBCUT (17:14)
[2022-07-08 20:24] LABS: Glucose, Whole Blood 147 mg/dL (60-115)
[2022-07-08] MEDS: Loperamide HCl 2 MG CAPSULE PO (21:04)
[2022-07-08] MEDS: Melatonin 3 MG TABLET 6 MG PO (21:04)
[2022-07-08] MEDS: clonazePAM 0.5 MG TABLET PO (21:04)
[2022-07-09 04:00] VITALS: BP 120/57; PULSE 48; RESP 16; TEMP 36.2; O2SAT 94
[2022-07-09 06:00] VITALS: BMI 27.8
[2022-07-09 07:05] LABS: Anion Gap 18 (12-20); Blood Urea Nitrogen 41 mg/dL (9-16); Calcium 8.6 mg/dL (8.4-10.2); Carbon Dioxide 20 mmol/L (22-29); Chloride 100 mmol/L (96-108); Creatinine Clr Calc Pharmacy 10.4; Estimated Glomerular Filt Rate 9; Glucose Random 68 mg/dL (60-115); Potassium 3.9 mmol/L (3.3-5.1); Sodium 134 mmol/L (135-145)
[2022-07-09 07:26] VITALS: BP 140/70; PULSE 43; RESP 16; TEMP 36.2; O2SAT 95
[2022-07-09 07:29] LABS: Glucose, Whole Blood 74 mg/dL (60-115)
[2022-07-09] MEDS: amLODIPine Besylate 10 MG TABLET PO (08:26)
[2022-07-09] MEDS: Nystatin Oral Susp 500,000 UNIT/5 ML ORAL.SUSP 100000 UNIT BUCCAL ×3 (08:26→20:30)
[2022-07-09] MEDS: hydrALAZINE HCl 25 MG TABLET PO ×3 (08:26→20:30)
[2022-07-09] MEDS: Isosorbide Dinitrate 10 MG TABLET PO ×3 (08:26→18:43)
[2022-07-09] MEDS: Insulin Glargine,Hum.rec.anlog 100 UNIT/ML 10 ML VIAL 30 UNIT SUBCUT (08:28)
--- NOTE | 2022-07-09 09:07 | HO.PM.IMPN ---
Subjective Subjective Date of Service: 07/10/22 Review of Systems Follow up nstemi no pain abd felt gassy and she is nauseas Physical Exam Vital Signs: Vital Signs: Last Vital Signs Temp 97.2 F 07/09/22 07:26 Pulse 43 L 07/09/22 07:26 Resp 16 07/09/22 07:26 BP 140/70 H 07/09/22 07:26 Pulse Ox 95 07/09/22 07:26 O2 Del Method 07/09/22 07:26 O2 Flow Rate 3 07/02/22 07:00 FiO2 30 07/01/22 09:00 BMI result Body Mass Index 27.8 Appearing in no acute distress lung sounds are clear to auscultation heart regular rate rhythm, clear S1, S2 positive bowel sounds, abdomen is soft, nontender neuro patient is alert x3, no focal deficits Objective Data Active Medications Acetaminophen (Acetaminophen 325 Mg Tablet) 650 mg PO Q6H PRN PRN Reason: Pain, Moderate (Pain Scale 4-6 Last Admin: 07/01/22 19:41 Dose: 650 mg Documented By: LUKAS Amlodipine Besylate (Amlodipine Besylate 10 Mg Tablet) 10 mg PO DAILY [facility]; Protocol Last Admin: 07/09/22 08:26 Dose: 10 mg Documented By: FREDDIE Apixaban (Apixaban 2.5 Mg Tablet) 2.5 mg PO BID [facility] Last Admin: 07/06/22 09:49 Dose: Not Given Documented By: FREDDIE Non-Admin Reason: Off Unit: Surgery Clonazepam (Clonazepam 0.5 Mg Tablet) 0.5 mg PO TID PRN PRN Reason: Anxiety Last Admin: 07/08/22 21:04 Dose: 0.5 mg Documented By: EVON Clopidogrel Bisulfate (Clopidogrel Bisulfate 75 Mg Tablet) 75 mg PO DAILY [facility] Last Admin: 07/07/22 09:27 Dose: 75 mg Documented By: BUDDY Dextrose (Dextrose 50 % 25 Gm/50 Ml Syringe) 25 gm IVPUSH Q30M PRN PRN Reason: Nursing Actions in Insulin Infusion Protocol Hydralazine HCl (Hydralazine Hcl 25 Mg Tablet) 25 mg PO TID [facility]; Protocol Last Admin: 07/09/22 08:26 Dose: 25 mg Documented By: FREDDIE Insulin Glargine (Insulin Glargine,Hum.Rec.Anlog 100 Unit/Ml 10 Ml Vial) 30 unit SUBCUT DAILY [facility] Last Admin: 07/09/22 08:28 Dose: 30 unit Documented By: FREDDIE Insulin Human Lispro (Insulin Lispro 100 Unit/Ml 3 Ml Vial) 0.1 - 10 unit SUBCUT QIDACHS [facility]; Protocol Last Admin: 07/09/22 07:30 Dose: Not Given Documented By: FREDDIE Non-Admin Reason: No Insulin Coverage Isosorbide Dinitrate (Isosorbide Dinitrate 10 Mg Tablet) 10 mg PO TID@0800,1300,1800 [facility]; Protocol Last Admin: 07/09/22 08:26 Dose: 10 mg Documented By: FREDDIE Loperamide HCl (Loperamide Hcl 2 Mg Capsule) 2 mg PO Q4H PRN PRN Reason: diarrhea Last Admin: 07/08/22 21:04 Dose: 2 mg Documented By: EVON Melatonin (Melatonin 3 Mg Tablet) 6 mg PO BEDTIME PRN PRN Reason: insomnia Last Admin: 07/08/22 21:04 Dose: 6 mg Documented By: EVON Metoprolol Tartrate (Metoprolol Tartrate 12.5 Mg Halftab) 12.5 mg PO BID [facility]; Protocol Last Admin: 07/08/22 21:04 Dose: 12.5 mg Documented By: EVON Nitroglycerin (Nitroglycerin 0.4 Mg Tab.Subl) 0.4 mg SUBLINGUAL Q5MX3 PRN PRN Reason: Chest Pain Nystatin (Nystatin Oral Susp 500,000 Unit/5 Ml Oral.Susp) 100,000 unit BUCCAL TID [facility]; Protocol Last Admin: 07/09/22 08:26 Dose: 100,000 unit Documented By: FREDDIE Labs 07/08/22 06:45 07/09/22 06:23 Labs: Laboratory Results - last 24 hr 07/08/22 07/08/22 07/08/22 11:45 15:54 20:21 Anion Gap Estim Creat Clear Calc Estimated GFR POC Glucose 120 H 168 H 147 H Random Glucose Calcium 07/09/22 07/09/22 06:23 07:24 Anion Gap 18 Estim Creat Clear Calc 10.4 Estimated GFR 9 POC Glucose 74 Random Glucose 68 Calcium 8.6 Assessment and Plan (1) NSTEMI (non-ST elevated myocardial infarction): Status: Acute Plan 77yo F with DM, HTN, atrial flutter who fell in her bathroom and was down an estimated 24-36 hr.? Found to be an JHONNY due to rhabdomyolysis, with NSTEMI.? Intubated and subsequently required HD.? Extubated and stepped down to [facility] [place] 07/02/22.? Now HD-dependent.? Also has positive stress MIBI. Nausea and abd bloating KUB pending simethicone NSTEMI persistent WMA on repeat TTE, nuclear stress test with?mixed ischemia / infarct to the mid to distal inferior lateral wall, medical management as per Cardiology Isordil, hydralazine, metoprolol, and clopidogrel [clopidogrel on hold for Permacath placement] Hyponatremia. 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 Dowling In my clinical judgment, the patient requires continued inpatient hospitalization for the following reasons: JHONNY, NSTEMI Time Spent With Patient Time: Total time managing care of this patient today ____ minutes. Quality Stroke Does the patient have a stroke diagnosis?: No VTE Prior VTE?: No VTE Risk Level:: Medical - moderate - high VTE Device Contraindication: N/A - Device Ordered VTE Drug Contraindication: Treatment Not Tolerated
[2022-07-09 09:51] LABS: Magnesium 1.8 mg/dL (1.6-2.6)
[2022-07-09 11:07] LABS: Glucose, Whole Blood 156 mg/dL (60-115)
[2022-07-09] MEDS: Insulin Lispro 100 UNIT/ML 3 ML VIAL SUBCUT ×2 (11:13→20:30)
[2022-07-09 11:26] VITALS: BP 125/62; PULSE 68; RESP 16; TEMP 36.3; O2SAT 97
[2022-07-09] MEDS: Simethicone 80 MG TAB.CHEW PO ×3 (13:03→20:30)
--- NOTE | 2022-07-09 13:27 | PM.PNNEP ---
Subjective Subjective Date of Service: 07/09/22 Principal diagnosis: atrial flutter, NSTEMI Interval history: Events noted c/o Nausea Physical Exam Vital Signs: Vital Signs: Last Vital Signs Temp 97.3 F 07/09/22 11:26 Pulse 68 07/09/22 11:26 Resp 16 07/09/22 11:26 BP 125/62 07/09/22 11:26 Pulse Ox 97 07/09/22 11:26 O2 Del Method 07/09/22 11:26 O2 Flow Rate 3 07/02/22 07:00 FiO2 30 07/01/22 09:00 BMI result Body Mass Index 27.8 Appearing in no acute distress lung sounds are clear to auscultation heart regular rate rhythm, clear S1, S2 positive bowel sounds, abdomen is soft, nontender neuro patient is alert x3, no focal deficits Objective Data Labs 07/08/22 06:45 07/09/22 06:23 Labs: Laboratory Results - last 24 hr 07/08/22 07/08/22 07/09/22 15:54 20:21 06:23 Sodium 134 L Potassium 3.9 Chloride 100 Carbon Dioxide 20 L Anion Gap 18 BUN 41 H Creatinine 4.70 H* Estim Creat Clear Calc 10.4 Estimated GFR 9 POC Glucose 168 H 147 H Random Glucose 68 Calcium 8.6 Magnesium 1.8 07/09/22 07/09/22 07:24 11:02 Sodium Potassium Chloride Carbon Dioxide Anion Gap BUN Creatinine Estim Creat Clear Calc Estimated GFR POC Glucose 74 156 H Random Glucose Calcium Magnesium Microbiology Microbiology Results: Microbiology 06/28/22 15:42 Blood - Venous Blood Culture - Final No growth after 5 days. 06/28/22 13:59 Blood - Venous Blood Culture - Final No growth after 5 days. 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 Mancini - Apparently going to be done on Monday follow kidney function and electrolytes Time Spent With Patient Time: Total time managing care of this patient today ____ minutes. Progress Note: Quality Stroke Does the patient have a stroke diagnosis?: No
[2022-07-09 16:00] VITALS: BP 110/61; PULSE 60; TEMP 36.4; O2SAT 95
[2022-07-09 16:17] LABS: Glucose, Whole Blood 110 mg/dL (60-115)
[2022-07-09 19:08] VITALS: BP 122/58; PULSE 57; RESP 18; TEMP 36.2; O2SAT 93
[2022-07-09 20:04] LABS: Glucose, Whole Blood 167 mg/dL (60-115)
[2022-07-09] MEDS: Loperamide HCl 2 MG CAPSULE PO (20:35)
[2022-07-09] MEDS: Melatonin 3 MG TABLET 6 MG PO (20:35)
[2022-07-09] MEDS: clonazePAM 0.5 MG TABLET PO (20:35)
[2022-07-09 23:49] VITALS: BP 130/62; PULSE 52; RESP 20; TEMP 36; O2SAT 94
--- NOTE | 2022-07-10 | ECG_ITS ---
Test Reason : cp Blood Pressure : / mmHG Vent. Rate : 054 BPM Atrial Rate : 267 BPM P-R Int : 000 ms QRS Dur : 090 ms QT Int : 464 ms P-R-T Axes : 000 -13 -30 degrees QTc Int : 440 ms Atrial flutter with variable A-V block Low voltage QRS Septal infarct (cited on or before 02-JUL-2022) ST & T wave abnormality, consider anterolateral ischemia Abnormal ECG When compared with ECG of 02-JUL-2022 15:49, No significant changes seen Referred By: Unique Brown Electronically Signed By:SHIRA PASCUAL
[2022-07-10 03:11] VITALS: BP 134/63; PULSE 62; RESP 20; TEMP 36.1; O2SAT 93
[2022-07-10 05:43] VITALS: BMI 27.8
[2022-07-10 07:16] VITALS: BP 142/65; PULSE 59; RESP 16; TEMP 36.3; O2SAT 95
[2022-07-10 07:22] LABS: Glucose, Whole Blood 101 mg/dL (60-115)
[2022-07-10] MEDS: Isosorbide Dinitrate 10 MG TABLET PO ×3 (07:46→17:32)
[2022-07-10] MEDS: Simethicone 80 MG TAB.CHEW PO ×4 (07:47→20:13)
[2022-07-10] MEDS: hydrALAZINE HCl 25 MG TABLET PO ×3 (07:47→20:13)
[2022-07-10] MEDS: Cholestyramine (With Sugar) 4 GM POWD.PACK PO (07:47)
[2022-07-10] MEDS: Magnesium Sulfate/H2O 2 GM/50 ML PIGGYBACK IV (07:59)
[2022-07-10] MEDS: Nystatin Oral Susp 500,000 UNIT/5 ML ORAL.SUSP 100000 UNIT BUCCAL ×3 (08:00→20:12)
[2022-07-10] MEDS: Insulin Glargine,Hum.rec.anlog 100 UNIT/ML 10 ML VIAL 30 UNIT SUBCUT (08:00)
[2022-07-10] MEDS: amLODIPine Besylate 10 MG TABLET PO (08:00)
[2022-07-10 08:38] LABS: MANUAL DIFF FLAG NO
[2022-07-10 08:41] LABS: Basophils Absolute Auto 0.1 X10*3/uL (0.0-0.2); Basophils Percent Auto 0.4 % (0-2); Eosinophils Absolute Auto 0.2 X10*3/uL (0.0-0.4); Eosinophils Percent Auto 0.9 % (0-4); Imm Gran Abs Auto 0.33 X10*3/uL (0.00-0.03); Imm Gran Pct Auto 1.7 % (0.0-0.4); Lymphocytes Percent Auto 10.3 % (20-40); Mean Corpuscular HGB Conc 33.3 g/dl (31.0-35.0); Mean Corpuscular Hemoglobin 28.6 pg (27.0-33.0); Mean Corpuscular Volume 85.7 fL (80.0-98.0); Mean Platelet Volume 9.3 fL (9.4-12.3); Monocytes Percent Auto 5.2 % (2-11); Neutrophils Absolute Auto 15.5 x10*3/uL (2.0-8.3); Neutrophils Percent Auto 81.5 % (45-73); Platelet Count 427 X10*3/uL (160-400); Red Cell Distribution Width 14.4 % (11.0-16.0)
--- NOTE | 2022-07-10 08:51 | P.CONGS_ITS ---
History of Present Illness Consult details Consult date: 07/10/22 Narrative: The patient is a 77-year-old woman who fell and has been admitted to the hospital since around June 28. She denies any prior abdominal operations that would lead to adhesions but notes she has had a lap choly in the past, many years ago. She notes that since admission, she has had bloating and decreased appetite. She is passing gas and had a small bowel movement yesterday. Flat plate of the abdomen showed an ileus versus small-bowel obstruction, I was asked to see the patient for a small-bowel obstruction although the patient is not having any vomiting or crampy abdominal pain typical of an SBO. She denies prior history of SBO. Review of Systems Review of Systems: Yes all other systems are reviewed and are negative Constitutional: Constitutional: Reports as per [facility] Past Medical History Medical History Hypercholesterolemia Hypertension Insomnia Obesity (BMI 30.0-34.9) Osteoarthrosis Overweight (BMI 25.0-29.9) Primary osteoarthritis of left knee Second degree AV block Tobacco abuse Type 2 diabetes mellitus with hyperglycemia Family History Family History Father Cancer Mother Medical history unknown Brother Liver cancer Sister Hypertension COPD (chronic obstructive pulmonary disease) Surgical History Surgical History H/O breast reconstruction History of cholecystectomy History of hip replacement History of tonsillectomy Social History Social History Household Members: Significant Other Housing: Apartment Do you presently have visiting nurse or other home services: No Alcohol intake: former Patient Tobacco Use Status: Former Tobacco user Tobacco use type: Cigarette Cigarettes Per Day: 2 e-Cigarette/Vaping Use: Never Used Second Hand Smoke Exposure: No service: No Current occupational status: retired Current occupation: Right Handed Cognitive needs: No Hearing needs: No Vision needs: Yes Meds Allergies Allergy/AdvReac Type Severity Reaction Status Date / Time No Known Allergies Allergy Verified 04/19/22 10:33 [No Known Allergies*] Active Medications: Current Medications Acetaminophen (Acetaminophen 325 Mg Tablet) 650 mg PO Q6H PRN PRN Reason: Pain, Moderate (Pain Scale 4-6 Last Admin: 07/01/22 19:41 Dose: 650 mg Amlodipine Besylate (Amlodipine Besylate 10 Mg Tablet) 10 mg PO DAILY [facility]; Protocol Last Admin: 07/10/22 08:00 Dose: 10 mg Apixaban (Apixaban 2.5 Mg Tablet) 2.5 mg PO BID [facility] Last Admin: 07/06/22 09:49 Dose: Not Given Cholestyramine Resin (Cholestyramine (With Sugar) 4 Gm Powd.Pack) 4 gm PO DAILY [facility] Last Admin: 07/10/22 07:47 Dose: 4 gm Clonazepam (Clonazepam 0.5 Mg Tablet) 0.5 mg PO TID PRN PRN Reason: Anxiety Last Admin: 07/09/22 20:35 Dose: 0.5 mg Clopidogrel Bisulfate (Clopidogrel Bisulfate 75 Mg Tablet) 75 mg PO DAILY [facility] Last Admin: 07/07/22 09:27 Dose: 75 mg Dextrose (Dextrose 50 % 25 Gm/50 Ml Syringe) 25 gm IVPUSH Q30M PRN PRN Reason: Nursing Actions in Insulin Infusion Protocol Hydralazine HCl (Hydralazine Hcl 25 Mg Tablet) 25 mg PO TID [facility]; Protocol Last Admin: 07/10/22 07:47 Dose: 25 mg Magnesium Sulfate (Magnesium Sulfate/H2o) 2 gm in 50 mls @ 25 mls/hr IV ONCE ONE Stop: 07/10/22 09:44 Last Admin: 07/10/22 07:59 Dose: 25 mls/hr Dextrose/Sodium Chloride (D5ns) 1,000 mls @ 50 mls/hr IVCONT .Q20H [facility] Insulin Glargine (Insulin Glargine,Hum.Rec.Anlog 100 Unit/Ml 10 Ml Vial) 30 unit SUBCUT DAILY [facility] Last Admin: 07/10/22 08:00 Dose: 30 unit Insulin Human Lispro (Insulin Lispro 100 Unit/Ml 3 Ml Vial) 0.1 - 10 unit SUBCUT QIDACHS [facility]; Protocol Last Admin: 07/10/22 07:37 Dose: Not Given Isosorbide Dinitrate (Isosorbide Dinitrate 10 Mg Tablet) 10 mg PO TID@0800,1300,1800 [facility]; Protocol Last Admin: 07/10/22 07:46 Dose: 10 mg Loperamide HCl (Loperamide Hcl 2 Mg Capsule) 2 mg PO Q4H PRN PRN Reason: diarrhea Last Admin: 07/09/22 20:35 Dose: 2 mg Melatonin (Melatonin 3 Mg Tablet) 6 mg PO BEDTIME PRN PRN Reason: insomnia Last Admin: 07/09/22 20:35 Dose: 6 mg Metoprolol Tartrate (Metoprolol Tartrate 12.5 Mg Halftab) 12.5 mg PO BID [facility]; Protocol Last Admin: 07/08/22 21:04 Dose: 12.5 mg Nitroglycerin (Nitroglycerin 0.4 Mg Tab.Subl) 0.4 mg SUBLINGUAL Q5MX3 PRN PRN Reason: Chest Pain Nystatin (Nystatin Oral Susp 500,000 Unit/5 Ml Oral.Susp) 100,000 unit BUCCAL TID [facility]; Protocol Last Admin: 07/10/22 08:00 Dose: 100,000 unit Simethicone (Simethicone 80 Mg Tab.Chew) 80 mg PO QIDWMHS [facility] Last Admin: 07/10/22 07:47 Dose: 80 mg Home Medications Medication Instructions Recorded Confirmed Last Taken Type clonazepam 1 mg tablet (Klonopin) 1 mg PO BID 07/16/20 06/28/22 Unknown History hydroxyzine HCl 25 mg tablet 25 mg PO BID PRN Anxiety 03/10/22 06/28/22 Unknown History cholestyramine-aspartame 4 gram 1 ea PO BID diarrhea 06/28/22 06/28/22 Unknown History oral powder (Cholestyramine Light) diclofenac sodium 1 % topical gel 4 g topical QID PRN Pain 06/28/22 06/28/22 Unknown History (Voltaren Arthritis Pain) glipizide 5 mg tablet 1 tab PO DAILY 06/28/22 06/28/22 Unknown History sertraline 100 mg tablet 1 tab PO DAILY 06/28/22 06/28/22 Unknown History Physical Exam Vital Signs: Vital Signs: Last Vital Signs Temp 97.4 F 07/10/22 07:16 Pulse 59 07/10/22 07:16 Resp 16 07/10/22 07:16 BP 142/65 H 07/10/22 07:16 Pulse Ox 95 07/10/22 07:16 O2 Del Method 07/10/22 07:16 O2 Flow Rate 3 07/02/22 07:00 FiO2 30 07/01/22 09:00 BMI result Body Mass Index 27.8 The patient is non-toxic & in good spirits NC/AT, PERRLA, EOMI Mood, affect & judgment all appear appropriate Sclera anicteric conjunctiva pink and moist Oropharynx is clear with no aphthous ulcers, mucous membranes moist Neck is supple with no masses, adenopathy or bruits Heart is regular, normal S1-S2 no rubs or murmurs Lungs are clear and equal anteriorly with no audible wheezing, rubs or dullness to percussion Abdomen is overweight with no demonstrable incisional or inguinal hernias. No HSM, rebound, rigidity, guarding, masses or bruits are present. Tympany is noted with no peritoneal sign Rectal exam is deferred Skin has good turgor and is free of rashes Extremities free of cyanosis clubbing edema Results Labs 07/10/22 08:11 07/09/22 06:23 Labs: Abnormal lab results 07/09/22 07/09/22 07/10/22 Range/Units 11:02 19:58 08:11 WBC 19.0 H (4.8-10.8) X10*3/uL RBC 3.50 L (4.20-5.50) X10*6/uL Hgb 10.0 L (12.0-16.0) g/dl Hct 30.0 L (37.0-47.0) % Plt Count 427 H (160-400) X10*3/uL MPV 9.3 L (9.4-12.3) fL Immature Gran % (Auto) 1.7 H (0.0-0.4) % Neut % (Auto) 81.5 H (45-73) % Lymph % (Auto) 10.3 L (20-40) % Abs Immat Gran (auto) 0.33 H (0.00-0.03) X10*3/uL Absolute Neuts (auto) 15.5 H (2.0-8.3) x10*3/uL POC Glucose 156 H 167 H (60-115) mg/dL Short CBC 07/10/22 Range/Units 08:11 WBC 19.0 H (4.8-10.8) X10*3/uL Hgb 10.0 L (12.0-16.0) g/dl Hct 30.0 L (37.0-47.0) % Plt Count 427 H (160-400) X10*3/uL Urine 06/28/22 Range/Units 16:19 Urine Color Dark Yellow Urine Appearance Cloudy Urine pH 5.5 (5.0-9.0) Ur Specific Barry >= 1.030 H (1.005-1.025) Urine Protein 300 (3+) H (Neg-Trace) mg/dL Urine Glucose (UA) >=1000 H (Negative) mg/dL All other labs normal. Imaging Abdominal x-ray: report reviewed and image reviewed Assessment and Plan (1) Ileus: Status: Acute (2) NSTEMI (non-ST elevated myocardial infarction): Status: Acute (3) JHONNY (acute kidney injury): Status: Acute (4) Fall: Qualifiers: Encounter type: initial encounter Qualified Code(s): W19.XXXA - Unspecified fall, initial encounter Status: Acute (5) Tobacco abuse: Status: Acute (6) Hypertension: Qualifiers: Hypertension type: essential hypertension Qualified Code(s): I10 - Essential (primary) hypertension Status: Acute (7) Type 2 diabetes mellitus with hyperglycemia: Qualifiers: Diabetes mellitus detention insulin use: 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 There does not appear to be an acute surgical process and her history and exam are not consistent with an acute small-bowel obstruction but rather an ileus. Would minimize narcotics, optimize her electrolytes and blood sugars, taper wean the antidiarrhea medication. A bowel regime is in order and if additional help with this is required, discussion with Gastroenterology may be helpful. Patient does not have abdominal operations that typically cause adhesions for small-bowel obstruction and does not have any inguinal or femoral or umbilical hernias on exam, so I think a CT will be low yield. Please call if other questions arise. Time Spent With Patient Time: Total time managing care of this patient today ____ minutes. Procedures Date of Service Date of Service: 07/10/22
--- NOTE | 2022-07-10 08:59 | P.PNIM_ITS ---
Subjective Subjective Date of Service: 07/10/22 Review of Systems Follow up nstemi no pain abd felt gassy and she is nauseas Physical Exam Vital Signs: Vital Signs: Last Vital Signs Temp 97.4 F 07/10/22 07:16 Pulse 59 07/10/22 07:16 Resp 16 07/10/22 07:16 BP 142/65 H 07/10/22 07:16 Pulse Ox 95 07/10/22 07:16 O2 Del Method 07/10/22 07:16 O2 Flow Rate 3 07/02/22 07:00 FiO2 30 07/01/22 09:00 BMI result Body Mass Index 27.8 Appearing in no acute distress lung sounds are clear to auscultation heart regular rate rhythm, clear S1, S2 positive bowel sounds, abdomen is soft, diffuse tenderness neuro patient is alert x3, no focal deficits Objective Data Active Medications Acetaminophen (Acetaminophen 325 Mg Tablet) 650 mg PO Q6H PRN PRN Reason: Pain, Moderate (Pain Scale 4-6 Last Admin: 07/01/22 19:41 Dose: 650 mg Documented By: LUKAS Amlodipine Besylate (Amlodipine Besylate 10 Mg Tablet) 10 mg PO DAILY [facility]; Protocol Last Admin: 07/10/22 08:00 Dose: 10 mg Documented By: FREDDIE Apixaban (Apixaban 2.5 Mg Tablet) 2.5 mg PO BID [facility] Last Admin: 07/06/22 09:49 Dose: Not Given Documented By: FREDDIE Non-Admin Reason: Off Unit: Surgery Cholestyramine Resin (Cholestyramine (With Sugar) 4 Gm Powd.Pack) 4 gm PO DAILY [facility] Last Admin: 07/10/22 07:47 Dose: 4 gm Documented By: FREDDIE Clonazepam (Clonazepam 0.5 Mg Tablet) 0.5 mg PO TID PRN PRN Reason: Anxiety Last Admin: 07/09/22 20:35 Dose: 0.5 mg Documented By: LUIS ANGEL Clopidogrel Bisulfate (Clopidogrel Bisulfate 75 Mg Tablet) 75 mg PO DAILY [facility] Last Admin: 07/07/22 09:27 Dose: 75 mg Documented By: BUDDY Dextrose (Dextrose 50 % 25 Gm/50 Ml Syringe) 25 gm IVPUSH Q30M PRN PRN Reason: Nursing Actions in Insulin Infusion Protocol Hydralazine HCl (Hydralazine Hcl 25 Mg Tablet) 25 mg PO TID [facility]; Protocol Last Admin: 07/10/22 07:47 Dose: 25 mg Documented By: FREDDIE Magnesium Sulfate (Magnesium Sulfate/H2o) 2 gm in 50 mls @ 25 mls/hr IV ONCE ONE Stop: 07/10/22 09:44 Last Admin: 07/10/22 07:59 Dose: 25 mls/hr Documented By: FREDDIE Dextrose/Sodium Chloride (D5ns) 1,000 mls @ 50 mls/hr IVCONT .Q20H [facility] Insulin Glargine (Insulin Glargine,Hum.Rec.Anlog 100 Unit/Ml 10 Ml Vial) 30 unit SUBCUT DAILY [facility] Last Admin: 07/10/22 08:00 Dose: 30 unit Documented By: FREDDIE Insulin Human Lispro (Insulin Lispro 100 Unit/Ml 3 Ml Vial) 0.1 - 10 unit SUBCU T QIDACHS [facility]; Protocol Last Admin: 07/10/22 07:37 Dose: Not Given Documented By: FREDDIE Non-Admin Reason: No Insulin Coverage Isosorbide Dinitrate (Isosorbide Dinitrate 10 Mg Tablet) 10 mg PO TID@0800,1300,1800 [facility]; Protocol Last Admin: 07/10/22 07:46 Dose: 10 mg Documented By: FREDDIE Loperamide HCl (Loperamide Hcl 2 Mg Capsule) 2 mg PO Q4H PRN PRN Reason: diarrhea Last Admin: 07/09/22 20:35 Dose: 2 mg Documented By: LUIS ANGEL Melatonin (Melatonin 3 Mg Tablet) 6 mg PO BEDTIME PRN PRN Reason: insomnia Last Admin: 07/09/22 20:35 Dose: 6 mg Documented By: LUIS ANGEL Metoprolol Tartrate (Metoprolol Tartrate 12.5 Mg Halftab) 12.5 mg PO BID [facility]; Protocol Last Admin: 07/08/22 21:04 Dose: 12.5 mg Documented By: EVON Nitroglycerin (Nitroglycerin 0.4 Mg Tab.Subl) 0.4 mg SUBLINGUAL Q5MX3 PRN PRN Reason: Chest Pain Nystatin (Nystatin Oral Susp 500,000 Unit/5 Ml Oral.Susp) 100,000 unit BUCCAL TID [facility]; Protocol Last Admin: 07/10/22 08:00 Dose: 100,000 unit Documented By: FREDDIE Simethicone (Simethicone 80 Mg Tab.Chew) 80 mg PO QIDWMHS [facility] Last Admin: 07/10/22 07:47 Dose: 80 mg Documented By: FREDDIE Labs 07/10/22 08:11 07/09/22 06:23 Labs: Laboratory Results - last 24 hr 07/09/22 07/09/22 07/09/22 06:23 11:02 16:09 MCV MCH MCHC RDW Plt Count MPV Immature Gran % (Auto) Neut % (Auto) Lymph % (Auto) [place] % (Auto) Eos % (Auto) Baso % (Auto) Lymph # (Auto) [place] # (Auto) Eos # (Auto) Baso # (Auto) Abs Immat Gran (auto) Absolute Neuts (auto) Absolute Nucleated RBC Nucleated RBC % (auto) POC Glucose 156 H 110 Magnesium 1.8 07/09/22 07/10/22 07/10/22 19:58 07:18 08:11 MCV 85.7 MCH 28.6 MCHC 33.3 RDW 14.4 Plt Count 427 H MPV 9.3 L Immature Gran % (Auto) 1.7 H Neut % (Auto) 81.5 H Lymph % (Auto) 10.3 L [place] % (Auto) 5.2 Eos % (Auto) 0.9 Baso % (Auto) 0.4 Lymph # (Auto) 2.0 [place] # (Auto) 1.0 Eos # (Auto) 0.2 Baso # (Auto) 0.1 Abs Immat Gran (auto) 0.33 H Absolute Neuts (auto) 15.5 H Absolute Nucleated RBC 0.000 Nucleated RBC % (auto) 0.0 POC Glucose 167 H 101 Magnesium Assessment and Plan (1) NSTEMI (non-ST elevated myocardial infarction): Status: Acute Plan 77yo F with DM, HTN, atrial flutter who fell in her bathroom and was down an estimated 24-36 hr.? Found to be an JHONNY due to rhabdomyolysis, with NSTEMI.? Intubated and subsequently required HD.? Extubated and stepped down to [facility] 07/02/22.? Now HD-dependent.? Also has positive stress MIBI. Nausea and abd bloating KUB showing SBO v ileus no vomiting or abdominal cramping gen surg consult, seems more likely ileus rather than SBO, rec bowel regimine stop loperamide NSTEMI persistent WMA on repeat TTE, nuclear stress test with?mixed ischemia / infarct to the mid to distal inferior lateral wall, medical management as per Cardiology Isordil, hydralazine, metoprolol, and clopidogrel [clopidogrel on hold for Permacath placement] Hyponatremia. 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 Stearns In my clinical judgment, the patient requires continued inpatient hospitalizat ion for the following reasons: JHONNY, NSTEMI Time Spent With Patient Time: Total time managing care of this patient today ____ minutes. Quality Stroke Does the patient have a stroke diagnosis?: No VTE Prior VTE?: No VTE Risk Level:: Medical - moderate - high VTE Device Contraindication: N/A - Device Ordered VTE Drug Contraindication: Treatment Not Tolerated
[2022-07-10 09:16] LABS: Anion Gap 22 (12-20); Blood Urea Nitrogen 68 mg/dL (9-16); Calcium 8.3 mg/dL (8.4-10.2); Carbon Dioxide 16 mmol/L (22-29); Chloride 100 mmol/L (96-108); Creatinine Clr Calc Pharmacy 7.7; Estimated Glomerular Filt Rate 6; Glucose Random 102 mg/dL (60-115); Potassium 4.2 mmol/L (3.3-5.1); Sodium 134 mmol/L (135-145)
[2022-07-10 09:26] LABS: Estimated Average Glucose 169 mg/dL; Hemoglobin A1c % 7.5 %
[2022-07-10] MEDS: Dextrose 5 % and 0.9 % NaCl 1,000 ML 50 ML IVCONT (10:31)
[2022-07-10 10:54] VITALS: BP 126/60; PULSE 60; RESP 16; TEMP 36.4; O2SAT 95
[2022-07-10 11:00] LABS: Glucose, Whole Blood 184 mg/dL (60-115)
[2022-07-10] MEDS: Insulin Lispro 100 UNIT/ML 3 ML VIAL SUBCUT (11:21)
[2022-07-10] MEDS: Docusate Sodium 100 MG CAPSULE PO ×2 (11:25→20:13)
[2022-07-10] MEDS: Sennosides 8.6 MG TABLET PO (11:25)
--- NOTE | 2022-07-10 14:36 | PM.PNNEP ---
Subjective Subjective Date of Service: 07/10/22 Principal diagnosis: atrial flutter, NSTEMI Interval history: Events noted c/o Nausea Physical Exam Vital Signs: Vital Signs: Last Vital Signs Temp 97.5 F 07/10/22 10:54 Pulse 60 07/10/22 10:54 Resp 16 07/10/22 10:54 BP 126/60 07/10/22 10:54 Pulse Ox 95 07/10/22 10:54 O2 Del Method 07/10/22 10:54 O2 Flow Rate 3 07/02/22 07:00 FiO2 30 07/01/22 09:00 BMI result Body Mass Index 27.8 Appearing in no acute distress lung sounds are clear to auscultation heart regular rate rhythm, clear S1, S2 positive bowel sounds, abdomen is soft, diffuse tenderness neuro patient is alert x3, no focal deficits Objective Data Labs 07/10/22 08:11 07/10/22 08:11 Labs: Laboratory Results - last 24 hr 07/09/22 07/09/22 07/10/22 16:09 19:58 07:18 WBC RBC Hgb Hct MCV MCH MCHC RDW Plt Count MPV Immature Gran % (Auto) Neut % (Auto) Lymph % (Auto) [place] % (Auto) Eos % (Auto) Baso % (Auto) Lymph # (Auto) [place] # (Auto) Eos # (Auto) Baso # (Auto) Abs Immat Gran (auto) Absolute Neuts (auto) Absolute Nucleated RBC Nucleated RBC % (auto) Sodium Potassium Chloride Carbon Dioxide Anion Gap BUN Creatinine Estim Creat Clear Calc Estimated GFR POC Glucose 110 167 H 101 Random Glucose Estimat Average Glucose Hemoglobin A1c % Calcium 07/10/22 07/10/22 07/10/22 08:11 08:11 08:11 WBC 19.0 H RBC 3.50 L Hgb 10.0 L Hct 30.0 L MCV 85.7 MCH 28.6 MCHC 33.3 RDW 14.4 Plt Count 427 H MPV 9.3 L Immature Gran % (Auto) 1.7 H Neut % (Auto) 81.5 H Lymph % (Auto) 10.3 L [place] % (Auto) 5.2 Eos % (Auto) 0.9 Baso % (Auto) 0.4 Lymph # (Auto) 2.0 [place] # (Auto) 1.0 Eos # (Auto) 0.2 Baso # (Auto) 0.1 Abs Immat Gran (auto) 0.33 H Absolute Neuts (auto) 15.5 H Absolute Nucleated RBC 0.000 Nucleated RBC % (auto) 0.0 Sodium 134 L Potassium 4.2 Chloride 100 Carbon Dioxide 16 L Anion Gap 22 H BUN 68 H Creatinine 6.30 H* Estim Creat Clear Calc 7.7 Estimated GFR 6 POC Glucose Random Glucose 102 Estimat Average Glucose 169 Hemoglobin A1c % 7.5 Calcium 8.3 L 07/10/22 10:56 WBC RBC Hgb Hct MCV MCH MCHC RDW Plt Count MPV Immature Gran % (Auto) Neut % (Auto) Lymph % (Auto) [place] % (Auto) Eos % (Auto) Baso % (Auto) Lymph # (Auto) [place] # (Auto) Eos # (Auto) Baso # (Auto) Abs Immat Gran (auto) Absolute Neuts (auto) Absolute Nucleated RBC Nucleated RBC % (auto) Sodium Potassium Chloride Carbon Dioxide Anion Gap BUN Creatinine Estim Creat Clear Calc Estimated GFR POC Glucose 184 H Random Glucose Estimat Average Glucose Hemoglobin A1c % Calcium Microbiology Microbiology Results: Microbiology 06/28/22 15:42 Blood - Venous Blood Culture - Final No growth after 5 days. 06/28/22 13:59 Blood - Venous Blood Culture - Final No growth after 5 days. 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 Mancini - Apparently going to be done on Monday -Please confirm with IR Keep Pt NPO after MN follow kidney function and electrolytes Time Spent With Patient Time: Total time managing care of this patient today ____ minutes. Progress Note: Quality Stroke Does the patient have a stroke diagnosis?: No
[2022-07-10 15:17] VITALS: BP 135/78; PULSE 66; RESP 18; TEMP 36.6; O2SAT 97
[2022-07-10 15:33] LABS: Glucose, Whole Blood 132 mg/dL (60-115)
[2022-07-10 20:00] VITALS: BP 129/61; PULSE 61; RESP 20; TEMP 36.2; O2SAT 94
[2022-07-10 20:01] LABS: Glucose, Whole Blood 100 mg/dL (60-115)
[2022-07-10] MEDS: Sennosides 8.6 MG TABLET 17.2 MG PO (20:13)
[2022-07-10] MEDS: clonazePAM 0.5 MG TABLET PO (20:13)
[2022-07-10 23:37] VITALS: BP 125/60; PULSE 44; RESP 20; TEMP 36.2; O2SAT 97
[2022-07-11] VITALS (7 sets, daily range): BP systolic 123–150; BP diastolic 55–79; PULSE 50–71; RESP 12–20; TEMP 36.3–37.1; O2SAT 92–98; BMI 31.0
[2022-07-11] MEDS: Dextrose 5 % and 0.9 % NaCl 1,000 ML 50 ML IVCONT (05:19)
[2022-07-11 07:18] LABS: Glucose, Whole Blood 74 mg/dL (60-115)
[2022-07-11] MEDS: Simethicone 80 MG TAB.CHEW PO ×4 (09:06→20:39)
[2022-07-11] MEDS: Docusate Sodium 100 MG CAPSULE PO ×2 (09:07→20:39)
[2022-07-11] MEDS: Nystatin Oral Susp 500,000 UNIT/5 ML ORAL.SUSP 100000 UNIT BUCCAL ×3 (09:07→20:39)
[2022-07-11] MEDS: Isosorbide Dinitrate 10 MG TABLET PO ×2 (09:07→18:11)
[2022-07-11] MEDS: Sennosides 8.6 MG TABLET 17.2 MG PO ×2 (09:07→20:43)
[2022-07-11] MEDS: amLODIPine Besylate 10 MG TABLET PO (09:07)
[2022-07-11] MEDS: hydrALAZINE HCl 25 MG TABLET PO ×3 (09:09→20:39)
--- NOTE | 2022-07-11 09:50 | HO.PM.IMPN ---
Subjective Subjective Date of Service: 07/11/22 Review of Systems Follow up nstemi no pain abd felt gassy and she is nauseas Physical Exam Vital Signs: Vital Signs: Last Vital Signs Temp 97.3 F 07/11/22 07:34 Pulse 52 07/11/22 07:34 Resp 12 07/11/22 07:34 BP 150/79 H 07/11/22 07:34 Pulse Ox 94 07/11/22 07:34 O2 Del Method 07/11/22 07:34 O2 Flow Rate 3 07/02/22 07:00 FiO2 30 07/01/22 09:00 BMI result Body Mass Index 31.0 Appearing in no acute distress lung sounds are clear to auscultation heart regular rate rhythm, clear S1, S2 positive bowel sounds, abdomen is soft, nontender neuro patient is alert x3, no focal deficits Left elbow eschar noted Objective Data Active Medications Acetaminophen (Acetaminophen 325 Mg Tablet) 650 mg PO Q6H PRN PRN Reason: Pain, Moderate (Pain Scale 4-6 Last Admin: 07/01/22 19:41 Dose: 650 mg Documented By: LUKAS Amlodipine Besylate (Amlodipine Besylate 10 Mg Tablet) 10 mg PO DAILY [facility]; Protocol Last Admin: 07/11/22 09:07 Dose: 10 mg Documented By: TERRELL Apixaban (Apixaban 2.5 Mg Tablet) 2.5 mg PO BID [facility] Last Admin: 07/06/22 09:49 Dose: Not Given Documented By: FREDDIE Non-Admin Reason: Off Unit: Surgery Cholestyramine Resin (Cholestyramine (With Sugar) 4 Gm Powd.Pack) 4 gm PO DAILY [facility] Last Admin: 07/10/22 07:47 Dose: 4 gm Documented By: FREDDIE Clonazepam (Clonazepam 0.5 Mg Tablet) 0.5 mg PO TID PRN PRN Reason: Anxiety Last Admin: 07/10/22 20:13 Dose: 0.5 mg Documented By: TISH Clopidogrel Bisulfate (Clopidogrel Bisulfate 75 Mg Tablet) 75 mg PO DAILY [facility] Last Admin: 07/07/22 09:27 Dose: 75 mg Documented By: BUDDY Dextrose (Dextrose 50 % 25 Gm/50 Ml Syringe) 25 gm IVPUSH Q30M PRN PRN Reason: Nursing Actions in Insulin Infusion Protocol Docusate Sodium (Docusate Sodium 100 Mg Capsule) 100 mg PO BID [facility] Last Admin: 07/11/22 09:07 Dose: 100 mg Documented By: TERRELL Hydralazine HCl (Hydralazine Hcl 25 Mg Tablet) 25 mg PO TID [facility]; Protocol Last Admin: 07/11/22 09:09 Dose: 25 mg Documented By: TERRELL Insulin Glargine (Insulin Glargine,Hum.Rec.Anlog 100 Unit/Ml 10 Ml Vial) 30 unit SUBCUT DAILY [facility] Last Admin: 07/11/22 09:09 Dose: Not Given Documented By: TERRELL Non-Admin Reason: NPO Insulin Human Lispro (Insulin Lispro 100 Unit/Ml 3 Ml Vial) 0.1 - 10 unit SUBCUT QIDACHS [facility]; Protocol Last Admin: 07/11/22 07:27 Dose: Not Given Documented By: TERRELL Non-Admin Reason: No Insulin Coverage Isosorbide Dinitrate (Isosorbide Dinitrate 10 Mg Tablet) 10 mg PO TID@0800,1300,1800 [facility]; Protocol Last Admin: 07/11/22 09:07 Dose: 10 mg Documented By: TERRELL Melatonin (Melatonin 3 Mg Tablet) 6 mg PO BEDTIME PRN PRN Reason: insomnia Last Admin: 07/09/22 20:35 Dose: 6 mg Documented By: LUIS ANGEL Metoprolol Tartrate (Metoprolol Tartrate 12.5 Mg Halftab) 12.5 mg PO BID [facility]; Protocol Last Admin: 07/08/22 21:04 Dose: 12.5 mg Documented By: EVON Nitroglycerin (Nitroglycerin 0.4 Mg Tab.Subl) 0.4 mg SUBLINGUAL Q5MX3 PRN PRN Reason: Chest Pain Nystatin (Nystatin Oral Susp 500,000 Unit/5 Ml Oral.Susp) 100,000 unit BUCCAL TID [facility]; Protocol Last Admin: 07/11/22 09:07 Dose: 100,000 unit Documented By: TERRELL Ondansetron HCl (Ondansetron Hcl 4 Mg/2 Ml Vial) 4 mg IVPUSH Q8H PRN PRN Reason: nausea Senna (Sennosides 8.6 Mg Tablet) 17.2 mg PO BID [facility] Last Admin: 07/11/22 09:07 Dose: 17.2 mg Documented By: TERRELL Simethicone (Simethicone 80 Mg Tab.Chew) 80 mg PO QIDWMHS [facility] Last Admin: 07/11/22 09:06 Dose: 80 mg Documented By: TERRELL Labs 07/10/22 08:11 07/10/22 08:11 Labs: Laboratory Results - last 24 hr 07/10/22 07/10/22 07/10/22 10:56 15:29 19:58 POC Glucose 184 H 132 H 100 07/11/22 07:10 POC Glucose 74 Assessment and Plan (1) NSTEMI (non-ST elevated myocardial infarction): Status: Acute Plan 77yo F with DM, HTN, atrial flutter who fell in her bathroom and was down an estimated 24-36 hr.? Found to be an JHONNY due to rhabdomyolysis, with NSTEMI.? Intubated and subsequently required HD.? Extubated and stepped down to [facility] 07/02/22.? Now HD-dependent.? Also has positive stress MIBI. L elbow wound Wound Care consult rec Silver alginate cut to fit wound and gauze gen surg consult for debridement, not needed at this time continue wound care orders every other day Nausea and abd bloating KUB showing SBO v ileus no vomiting or abdominal cramping gen surg consult, ileus still with abd pain, abd CT not showing SBO or ileus but stool stasis, fleets enema and continue bowel regime NSTEMI persistent WMA on repeat TTE, nuclear stress test with?mixed ischemia / infarct to the mid to distal inferior lateral wall, medical management as per Cardiology Isordil, hydralazine, metoprolol, and clopidogrel [clopidogrel on hold for Permacath placement] Hyponatremia. 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 Garcia In my clinical judgment, the patient requires continued inpatient hospitalization for the following reasons: JHONNY, NSTEMI Time Spent With Patient Time: Total time managing care of this patient today ____ minutes. Quality Stroke Does the patient have a stroke diagnosis?: No VTE Prior VTE?: No VTE Risk Level:: Medical - moderate - high VTE Device Contraindication: N/A - Device Ordered VTE Drug Contraindication: Treatment Not Tolerated
--- NOTE | 2022-07-11 10:11 | PC.NURSE ---
LATE ENTRY: [employer] message sent to Boris Brown NP 07/08/22 0944am asking what is causing WBC to be elevated. No reply received. Pt has an order for Permacath on 07/11/22. Dr Dennison was notified and he also sent a [employer] message on 07/08/22 inquiring about elevated WBC.
--- NOTE | 2022-07-11 10:43 | P.CONGS_ITS ---
History of Present Illness Consult details Consult date: 07/11/22 Narrative: 77 year old female patient? presenting with a past medical history of a flutter on Eliquis, non STEMI, acute kidney injury, aspiration pneumonia, atherosclerotic cardiovascular disease, and CVA presenting after a fall upon transfer to a [facility] resulting in injury to the left elbow. Patient reports pain in the left elbow with an open wound with some bleeding. The pain is localized to the elbow and slightly below. She is able to bend her elbow without difficulties. She was seen by wound care on 07/07/2022 and silver alginate recommended. Surgical consultation was requested for possible debridement. She is awaiting access for dialysis. Review of Systems Review of Systems: Yes Unobtainable due to mental condition PMF Past Medical History Medical History Hypercholesterolemia Hypertension Insomnia Obesity (BMI 30.0-34.9) Osteoarthrosis Overweight (BMI 25.0-29.9) Primary osteoarthritis of left knee Second degree AV block Tobacco abuse Type 2 diabetes mellitus with hyperglycemia Family History Family History Father Cancer Mother Medical history unknown Brother Liver cancer Sister Hypertension COPD (chronic obstructive pulmonary disease) Surgical History Surgical History H/O breast reconstruction History of cholecystectomy History of hip replacement History of tonsillectomy Social History Social History Household Members: Significant Other Housing: Apartment Do you presently have visiting nurse or other home services: No Alcohol intake: former Patient Tobacco Use Status: Former Tobacco user Tobacco use type: Cigarette Cigarettes Per Day: 2 e-Cigarette/Vaping Use: Never Used Second Hand Smoke Exposure: No service: No Current occupational status: retired Current occupation: Right Handed Cognitive needs: No Hearing needs: No Vision needs: Yes Meds Allergies Allergy/AdvReac Type Severity Reaction Status Date / Time No Known Allergies Allergy Verified 04/19/22 10:33 [No Known Allergies*] Active Medications: Current Medications Acetaminophen (Acetaminophen 325 Mg Tablet) 650 mg PO Q6H PRN PRN Reason: Pain, Moderate (Pain Scale 4-6 Last Admin: 07/01/22 19:41 Dose: 650 mg Amlodipine Besylate (Amlodipine Besylate 10 Mg Tablet) 10 mg PO DAILY [facility]; Protocol Last Admin: 07/11/22 09:07 Dose: 10 mg Apixaban (Apixaban 2.5 Mg Tablet) 2.5 mg PO BID [facility] Last Admin: 07/06/22 09:49 Dose: Not Given Cholestyramine Resin (Cholestyramine (With Sugar) 4 Gm Powd.Pack) 4 gm PO DAILY [facility] Last Admin: 07/10/22 07:47 Dose: 4 gm Clonazepam (Clonazepam 0.5 Mg Tablet) 0.5 mg PO TID PRN PRN Reason: Anxiety Last Admin: 07/10/22 20:13 Dose: 0.5 mg Clopidogrel Bisulfate (Clopidogrel Bisulfate 75 Mg Tablet) 75 mg PO DAILY [facility] Last Admin: 07/07/22 09:27 Dose: 75 mg Dextrose (Dextrose 50 % 25 Gm/50 Ml Syringe) 25 gm IVPUSH Q30M PRN PRN Reason: Nursing Actions in Insulin Infusion Protocol Docusate Sodium (Docusate Sodium 100 Mg Capsule) 100 mg PO BID [facility] Last Admin: 07/11/22 09:07 Dose: 100 mg Hydralazine HCl (Hydralazine Hcl 25 Mg Tablet) 25 mg PO TID [facility]; Protocol Last Admin: 07/11/22 09:09 Dose: 25 mg Insulin Glargine (Insulin Glargine,Hum.Rec.Anlog 100 Unit/Ml 10 Ml Vial) 30 unit SUBCUT DAILY [facility] Last Admin: 07/11/22 09:09 Dose: Not Given Insulin Human Lispro (Insulin Lispro 100 Unit/Ml 3 Ml Vial) 0.1 - 10 unit SUBCUT QIDACHS [facility]; Protocol Last Admin: 07/11/22 07:27 Dose: Not Given Isosorbide Dinitrate (Isosorbide Dinitrate 10 Mg Tablet) 10 mg PO TID@0800,1300,1800 [facility]; Protocol Last Admin: 07/11/22 09:07 Dose: 10 mg Melatonin (Melatonin 3 Mg Tablet) 6 mg PO BEDTIME PRN PRN Reason: insomnia Last Admin: 07/09/22 20:35 Dose: 6 mg Metoprolol Tartrate (Metoprolol Tartrate 12.5 Mg Halftab) 12.5 mg PO BID [facility]; Protocol Last Admin: 07/08/22 21:04 Dose: 12.5 mg Nitroglycerin (Nitroglycerin 0.4 Mg Tab.Subl) 0.4 mg SUBLINGUAL Q5MX3 PRN PRN Reason: Chest Pain Nystatin (Nystatin Oral Susp 500,000 Unit/5 Ml Oral.Susp) 100,000 unit BUCCAL TID [facility]; Protocol Last Admin: 07/11/22 09:07 Dose: 100,000 unit Ondansetron HCl (Ondansetron Hcl 4 Mg/2 Ml Vial) 4 mg IVPUSH Q8H PRN PRN Reason: nausea Senna (Sennosides 8.6 Mg Tablet) 17.2 mg PO BID [facility] Last Admin: 07/11/22 09:07 Dose: 17.2 mg Simethicone (Simethicone 80 Mg Tab.Chew) 80 mg PO QIDWMHS [facility] Last Admin: 07/11/22 09:06 Dose: 80 mg Home Medications Medication Instructions Recorded Confirmed Last Taken Type clonazepam 1 mg tablet (Klonopin) 1 mg PO BID 07/16/20 06/28/22 Unknown History hydroxyzine HCl 25 mg tablet 25 mg PO BID PRN Anxiety 03/10/22 06/28/22 Unknown History cholestyramine-aspartame 4 gram 1 ea PO BID diarrhea 06/28/22 06/28/22 Unknown History oral powder (Cholestyramine Light) diclofenac sodium 1 % topical gel 4 g topical QID PRN Pain 06/28/22 06/28/22 Unknown History (Voltaren Arthritis Pain) glipizide 5 mg tablet 1 tab PO DAILY 06/28/22 06/28/22 Unknown History sertraline 100 mg tablet 1 tab PO DAILY 06/28/22 06/28/22 Unknown History Physical Exam Vital Signs: Vital Signs: Last Vital Signs Temp 97.3 F 07/11/22 07:34 Pulse 68 07/11/22 10:24 Resp 12 07/11/22 07:34 BP 150/79 H 07/11/22 07:34 Pulse Ox 94 07/11/22 07:34 O2 Del Method 07/11/22 07:34 O2 Flow Rate 3 07/02/22 07:00 FiO2 30 07/01/22 09:00 BMI result Body Mass Index 31.0 Const: General: no acute distress, lethargic and tired appearing Nutritional Appearance: well nourished Orientation/consciousness: lethargic HEENT: Head: Yes normocephalic and Yes atraumatic Ears: hearing grossly normal bilaterally Resp: Effort & Inspection: normal respiratory effort, no audible wheezes, no cough and no respiratory distress Skin: Other: warm, dry, no rash, see extremities below Extrem: Other: left arm with an open wound measuring approximately 5 cm in diameter with a central area of eschar and a surrounding area of de-epithelialized skin. No underlying abscess is appreciated. Eschar appears to be lifting and there is no under lying cellulitis or infection. Patient has good range of motion at the elbow. The injury is located just below the elbow as noted below. Results Labs 07/10/22 08:11 07/10/22 08:11 Labs: Abnormal lab results 07/10/22 07/10/22 Range/Units 10:56 15:29 POC Glucose 184 H 132 H (60-115) mg/dL Urine 06/28/22 Range/Units 16:19 Urine Color Dark Yellow Urine Appearance Cloudy Urine pH 5.5 (5.0-9.0) Ur Specific Jones >= 1.030 H (1.005-1.025) Urine Protein 300 (3+) H (Neg-Trace) mg/dL Urine Glucose (UA) >=1000 H (Negative) mg/dL All other labs normal. Assessment and Plan (1) Abrasion of left elbow: Status: Acute Plan 77-year-old female patient status post fall with abrasion to the left elbow. Patient has a central area of eschar with surrounding area of the epithelialized skin. Eschar should lift with time and does not require debridement at this time. Recommend applying silver alginate to the wound q.o.d. followed by fluffed gauze. Please avoid applying tape to skin in use stockinette instead to hold dressing in place. Will monitor the the wound during her hospitalization. Time Spent With Patient Time: Total time managing care of this patient today ____ minutes. Procedures Date of Service Date of Service: 07/11/22
[2022-07-11 10:47] LABS: Glucose, Whole Blood 70 mg/dL (60-115)
[2022-07-11] MEDS: Cholestyramine (With Sugar) 4 GM POWD.PACK PO (12:46)
--- NOTE | 2022-07-11 15:11 | MHC.CM.PN ---
DP STR VIA BLS. [facility] is following. Updated clinical information has been sent to the facility. A [employer] text has been sent to Dr Santos informing him of the STR following. Permacath is Pending.
[2022-07-11 16:23] LABS: Glucose, Whole Blood 85 mg/dL (60-115)
[2022-07-11] MEDS: Mineral OiL enema 133 ML ENEMA PR (19:09)
--- NOTE | 2022-07-11 19:18 | PC.NURSE ---
This am Pt NPO awaiting a procedure for permacath placement. Blood glucose 74 hold lispro/lantus and gave a sip of apple juice with morning meds per provider orders. At 11am BG was 70, notify surgical team and medical provider to verify if pt was ok to go for the procedure with a BG of 70. Per medical provider instructions a sip of apple juice given. Surgical team reschedule the procedure for tomorrow as pt should be NPO.
[2022-07-11 19:59] LABS: Glucose, Whole Blood 202 mg/dL (60-115)
[2022-07-11] MEDS: clonazePAM 0.5 MG TABLET PO (20:39)
--- NOTE | 2022-07-11 23:00 | PM.PNNEP ---
Subjective Subjective Date of Service: 07/11/22 Principal diagnosis: atrial flutter, NSTEMI Interval history: Seen and examined, events noted Physical Exam Vital Signs: Vital Signs: Last Vital Signs Temp 98.2 F 07/11/22 19:22 Pulse 71 07/11/22 19:22 Resp 20 07/11/22 19:22 BP 123/55 L 07/11/22 19:22 Pulse Ox 94 07/11/22 19:22 O2 Del Method 07/11/22 19:22 O2 Flow Rate 3 07/02/22 07:00 FiO2 30 07/01/22 09:00 BMI result Body Mass Index 31.0 Const: Other: Intubated General: no acute distress HEENT: Head: Yes normocephalic and Yes atraumatic Neck: Neck: Yes supple Resp: Auscultation: diminished lung sounds Cardio: Rate: regular rate Heart sounds: S1 normal heart sound present and S2 normal heart sound present GI: Palpation (GI): Soft to palpation and nontender Neuro: Other: Sedated Extrem: General: No edema Objective Data Labs 07/10/22 08:11 07/10/22 08:11 Labs: Laboratory Results - last 24 hr 07/11/22 07/11/22 07/11/22 07:10 10:44 16:20 POC Glucose 74 70 85 07/11/22 19:54 POC Glucose 202 H Microbiology Microbiology Results: Microbiology 06/28/22 15:42 Blood - Venous Blood Culture - Final No growth after 5 days. 06/28/22 13:59 Blood - Venous Blood Culture - Final No growth after 5 days. 06/28/22 17:03 Urine clean catch - Urine ryan top Urine Culture - Final Procedures Date of Service Date of Service: 07/11/22 Assessment & Plan Assessment and plan (1) JHONNY (acute kidney injury): Status: Acute (2) Hyponatremia: Status: Acute (3) Metabolic acidosis: Status: Acute Plan - Oliguric JHONNY: working Dx is Rhabdo assoc ATN with delayed recovery and cont HD dependent BSL SCr 1.0 -Hemoaccess: PC arianne placed by IR REC: cont HD mwf for now and I will arrange an outpt HD spot;ideally would consider a Dx kidney Bx but overall very frail and thus willhold off with Bx for now and instead cont to monitor for signs of renal recovery Time Spent With Patient Time: Total time managing care of this patient today ____ minutes. Progress Note: Quality Stroke Does the patient have a stroke diagnosis?: No
[2022-07-12 03:10] VITALS: BP 138/63; PULSE 68; RESP 18; TEMP 36.7; O2SAT 96
[2022-07-12 05:32] VITALS: BMI 27.6
[2022-07-12 06:28] LABS: Anion Gap 18 (12-20); Blood Urea Nitrogen 39 mg/dL (9-16); Calcium 8.3 mg/dL (8.4-10.2); Carbon Dioxide 20 mmol/L (22-29); Chloride 100 mmol/L (96-108); Creatinine Clr Calc Pharmacy 10.4; Estimated Glomerular Filt Rate 9; Glucose Random 119 mg/dL (60-115); Potassium 3.9 mmol/L (3.3-5.1); Sodium 134 mmol/L (135-145)
[2022-07-12 07:09] VITALS: BP 143/61; PULSE 66; RESP 12; TEMP 36.3; O2SAT 94
[2022-07-12 07:30] LABS: Glucose, Whole Blood 124 mg/dL (60-115)
--- NOTE | 2022-07-12 07:52 | HO.PM.IMPN ---
Subjective Subjective Date of Service: 07/12/22 Review of Systems Follow up nstemi, jhonny no pain sitting u in bed working with PT feels better after having BM Physical Exam Vital Signs: Vital Signs: Last Vital Signs Temp 97.4 F 07/12/22 07:09 Pulse 66 07/12/22 07:09 Resp 12 07/12/22 07:09 BP 143/61 H 07/12/22 07:09 Pulse Ox 94 07/12/22 07:09 O2 Del Method 07/12/22 07:09 O2 Flow Rate 3 07/02/22 07:00 FiO2 30 07/01/22 09:00 BMI result Body Mass Index 27.6 Appearing in no acute distress lung sounds are clear to auscultation heart regular rate rhythm, clear S1, S2 positive bowel sounds, abdomen is soft, nontender neuro patient is alert x3, no focal deficits Left foot Left elbow Objective Data Active Medications Acetaminophen (Acetaminophen 325 Mg Tablet) 650 mg PO Q6H PRN PRN Reason: Pain, Moderate (Pain Scale 4-6 Last Admin: 07/01/22 19:41 Dose: 650 mg Documented By: LUKAS Amlodipine Besylate (Amlodipine Besylate 10 Mg Tablet) 10 mg PO DAILY [facility]; Protocol Last Admin: 07/11/22 09:07 Dose: 10 mg Documented By: TERRELL Apixaban (Apixaban 2.5 Mg Tablet) 2.5 mg PO BID [facility] Last Admin: 07/06/22 09:49 Dose: Not Given Documented By: FREDDIE Non-Admin Reason: Off Unit: Surgery Cholestyramine Resin (Cholestyramine (With Sugar) 4 Gm Powd.Pack) 4 gm PO DAILY [facility] Last Admin: 07/11/22 12:46 Dose: 4 gm Documented By: TERRELL Clonazepam (Clonazepam 0.5 Mg Tablet) 0.5 mg PO TID PRN PRN Reason: anxiety/restlessness Last Admin: 07/11/22 20:39 Dose: 0.5 mg Documented By: EVON Clopidogrel Bisulfate (Clopidogrel Bisulfate 75 Mg Tablet) 75 mg PO DAILY [facility] Last Admin: 07/07/22 09:27 Dose: 75 mg Documented By: BUDDY Dextrose (Dextrose 50 % 25 Gm/50 Ml Syringe) 25 gm IVPUSH Q30M PRN PRN Reason: Nursing Actions in Insulin Infusion Protocol Docusate Sodium (Docusate Sodium 100 Mg Capsule) 100 mg PO BID [facility] Last Admin: 07/11/22 20:39 Dose: 100 mg Documented By: EVON Hydralazine HCl (Hydralazine Hcl 25 Mg Tablet) 25 mg PO TID [facility]; Protocol Last Admin: 07/11/22 20:39 Dose: 25 mg Documented By: EVON Insulin Glargine (Insulin Glargine,Hum.Rec.Anlog 100 Unit/Ml 10 Ml Vial) 30 unit SUBCUT DAILY [facility] Last Admin: 07/11/22 09:09 Dose: Not Given Documented By: TERRELL Non-Admin Reason: NPO Insulin Human Lispro (Insulin Lispro 100 Unit/Ml 3 Ml Vial) 0.1 - 10 unit SUBCUT QIDACHS [facility]; Protocol Last Admin: 07/11/22 20:52 Dose: Not Given Documented By: EVON Non-Admin Reason: Physician Held Med Isosorbide Dinitrate (Isosorbide Dinitrate 10 Mg Tablet) 10 mg PO TID@0800,1300,1800 [facility]; Protocol Last Admin: 07/11/22 18:11 Dose: 10 mg Documented By: TERRELL Melatonin (Melatonin 3 Mg Tablet) 6 mg PO BEDTIME PRN PRN Reason: insomnia Last Admin: 07/09/22 20:35 Dose: 6 mg Documented By: LUIS ANGEL Metoprolol Tartrate (Metoprolol Tartrate 12.5 Mg Halftab) 12.5 mg PO BID [facility]; Protocol Last Admin: 07/08/22 21:04 Dose: 12.5 mg Documented By: EVON Nitroglycerin (Nitroglycerin 0.4 Mg Tab.Subl) 0.4 mg SUBLINGUAL Q5MX3 PRN PRN Reason: Chest Pain Nystatin (Nystatin Oral Susp 500,000 Unit/5 Ml Oral.Susp) 100,000 unit BUCCAL TID [facility]; Protocol Last Admin: 07/11/22 20:39 Dose: 100,000 unit Documented By: EVON Ondansetron HCl (Ondansetron Hcl 4 Mg/2 Ml Vial) 4 mg IVPUSH Q8H PRN PRN Reason: nausea Senna (Sennosides 8.6 Mg Tablet) 17.2 mg PO BID [facility] Last Admin: 07/11/22 20:43 Dose: 17.2 mg Documented By: EVON Simethicone (Simethicone 80 Mg Tab.Chew) 80 mg PO QIDWMHS [facility] Last Admin: 07/11/22 20:39 Dose: 80 mg Documented By: EVON Labs 07/10/22 08:11 07/12/22 05:42 Labs: Laboratory Results - last 24 hr 07/11/22 07/11/22 07/11/22 10:44 16:20 19:54 Anion Gap Estim Creat Clear Calc Estimated GFR POC Glucose 70 85 202 H Random Glucose Calcium 07/12/22 07/12/22 05:42 07:08 Anion Gap 18 Estim Creat Clear Calc 10.4 Estimated GFR 9 POC Glucose 124 H Random Glucose 119 H Calcium 8.3 L Assessment and Plan (1) NSTEMI (non-ST elevated myocardial infarction): Status: Acute Plan 77yo F with DM, HTN, atrial flutter who fell in her bathroom and was down an estimated 24-36 hr.? Found to be an JHONNY due to rhabdomyolysis, with NSTEMI.? Intubated and subsequently required HD.? Extubated and stepped down to [facility] 07/02/22.? Now HD-dependent.? Also has positive stress MIBI. L elbow wound, left foot wound, left hip, coccyx Wound Care consult rec Silver alginate cut to fit wound and gauze gen surg consult for debridement for elbow wound, not needed at this time continue wound care orders every other day Nausea and abd bloating. KUB showing SBO v ileus, gen surg consult suggest ileus abd CT not showed no SBO or ileus but stool stasis resolved after multiple BM's after fleets enema, continue bowel regime diet will advance to solid ada diet after permacath placed NSTEMI persistent WMA on repeat TTE, nuclear stress test with?mixed ischemia / infarct to the mid to distal inferior lateral wall, medical management as per Cardiology Isordil, hydralazine, metoprolol, and clopidogrel [clopidogrel on hold for Permacath placement] Hyponatremia. 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 Garcia DISPO plan for STR when medically clear, maybe next 1-2 days In my clinical judgment, the patient requires continued inpatient hospitalization for the following reasons: JHONNY, NSTEMI Time Spent With Patient Time: Total time managing care of this patient today ____ minutes. Quality Stroke Does the patient have a stroke diagnosis?: No VTE Prior VTE?: No VTE Risk Level:: Medical - moderate - high VTE Device Contraindication: N/A - Device Ordered VTE Drug Contraindication: Treatment Not Tolerated
[2022-07-12] MEDS: Isosorbide Dinitrate 10 MG TABLET PO ×2 (08:44→17:14)
[2022-07-12] MEDS: hydrALAZINE HCl 25 MG TABLET PO ×2 (08:44→20:26)
[2022-07-12] MEDS: Sennosides 8.6 MG TABLET 17.2 MG PO ×2 (08:44→20:26)
[2022-07-12] MEDS: Docusate Sodium 100 MG CAPSULE PO ×2 (08:44→20:26)
[2022-07-12] MEDS: amLODIPine Besylate 10 MG TABLET PO (08:44)
[2022-07-12] MEDS: Simethicone 80 MG TAB.CHEW PO ×3 (08:44→20:26)
[2022-07-12] MEDS: Nystatin Oral Susp 500,000 UNIT/5 ML ORAL.SUSP 100000 UNIT BUCCAL ×2 (08:45→20:25)
[2022-07-12 08:52] LABS: Alcohol, Ethyl Urine Screen NEGATIVE
[2022-07-12 10:58] VITALS: BP 118/59; PULSE 62; RESP 12; TEMP 36.2; O2SAT 96
--- NOTE | 2022-07-12 11:00 | MHC.CM.PN ---
CM spoke with Patient's Daughter/Malissa @ [phone], Ext. [phone] and per her request, CM has left a blank HCP in Patient's room. CM discussed dc planning with Patient and Malissa and the goal is STR @ [facility] or [facility] (both have on-site HD); CM will follow.
[2022-07-12 11:13] LABS: Glucose, Whole Blood 135 mg/dL (60-115)
--- NOTE | 2022-07-12 12:40 | PM.PNNEP ---
Subjective Subjective Date of Service: 07/12/22 Principal diagnosis: atrial flutter, NSTEMI Interval history: Seen and examined, events noted Physical Exam Vital Signs: Vital Signs: Last Vital Signs Temp 97.1 F 07/12/22 10:58 Pulse 62 07/12/22 10:58 Resp 12 07/12/22 10:58 BP 118/59 L 07/12/22 10:58 Pulse Ox 96 07/12/22 10:58 O2 Del Method 07/12/22 10:58 O2 Flow Rate 3 07/02/22 07:00 FiO2 30 07/01/22 09:00 BMI result Body Mass Index 27.6 Const: Other: Intubated General: no acute distress HEENT: Head: Yes normocephalic and Yes atraumatic Neck: Neck: Yes supple Resp: Auscultation: diminished lung sounds Cardio: Rate: regular rate Heart sounds: S1 normal heart sound present and S2 normal heart sound present GI: Palpation (GI): Soft to palpation and nontender Neuro: Other: Sedated Extrem: General: No edema Objective Data Labs 07/10/22 08:11 07/12/22 05:42 Labs: Laboratory Results - last 24 hr 06/28/22 07/11/22 07/11/22 20:37 16:20 19:54 Sodium Potassium Chloride Carbon Dioxide Anion Gap BUN Creatinine Estim Creat Clear Calc Estimated GFR POC Glucose 85 202 H Random Glucose Calcium Urine Ethyl Alcohol NEGATIVE 07/12/22 07/12/22 07/12/22 05:42 07:08 10:59 Sodium 134 L Potassium 3.9 Chloride 100 Carbon Dioxide 20 L Anion Gap 18 BUN 39 H Creatinine 4.66 H* Estim Creat Clear Calc 10.4 Estimated GFR 9 POC Glucose 124 H 135 H Random Glucose 119 H Calcium 8.3 L Urine Ethyl Alcohol Microbiology Microbiology Results: Microbiology 06/28/22 15:42 Blood - Venous Blood Culture - Final No growth after 5 days. 06/28/22 13:59 Blood - Venous Blood Culture - Final No growth after 5 days. 06/28/22 17:03 Urine clean catch - Urine ryan top Urine Culture - Final Procedures Date of Service Date of Service: 07/12/22 Assessment & Plan Assessment and plan (1) JHONNY (acute kidney injury): Status: Acute (2) Hyponatremia: Status: Acute (3) Metabolic acidosis: Status: Acute Plan - Oliguric JHONNY: working Dx is Rhabdo assoc ATN with delayed recovery and cont HD dependent BSL SCr 1.0 -Hemoaccess: PC to be placed by IR ( was not done yesterday) REC: cont HD mwf for now and I will arrange an outpt HD spot ( I called and they are working on getting her a spot);ideally would consider a Dx kidney Bx but overall very frail and thus will hold off with Bx for now and instead cont to monitor for signs of renal recovery Time Spent With Patient Time: Total time managing care of this patient today ____ minutes. Progress Note: Quality Stroke Does the patient have a stroke diagnosis?: No
[2022-07-12 13:16] LABS: Glucose, Whole Blood 127 mg/dL (60-115)
--- NOTE | 2022-07-12 13:23 | P.CDIC_ITS ---
CDI Concurrent Query Documentation Clarification: PHYSICIAN'S DOCUMENTATION REQUEST Date of Query: 07/12/22 1323 Patient Name: Jennifer English Admit Date: 06/28/22 Dear Doctor, A review of the medical record indicates additional documentation may be needed. Please review below and update the documentation accordingly. Clinical Indicators: The suspected diagnosis of septic arthritis was documented on 07/08/22 but is not consistently noted in subsequent documentation. Please confirm/rule out this diagnosis based on the correlated findings below: Risk Factors/Clinical Indicators/Treatments POA/RESOLVED/TREAT/RULE OUT Per wound consult on 07/08: septic arthritis might be a consideration verses localized large serous draining blister Per provider progress notes: L elbow wound Wound Care consult rec Silver alginate cut to fit wound and gauze gen surg consult for debridement Other indicators: -(+) leukocytosis -lactic acid elevated on admission (06/28 : 2.7) -Patient with tachypnea on admission (RR reaching 27) Please clarify the following: * Septic arthritis was present on admission and is now resolved * Septic arthritis was present on admission and is still being monitored, evaluated, or treated * Septic arthritis is still a likely, suspected, probable diagnosis * Septic arthritis is/was ruled out * Other (please specify) * Unable to determine Use of terms such as suspected, likely, concern for, or probable (associated with a specific diagnosis that is being evaluated, monitored, or treated as if it exists) are acceptable and can be coded in the inpatient setting, when documented at the time of discharge. Thank you, Dianna Young MS, RN, CCRN Extension: [phone] Please use your independent medical judgment in providing your response. THIS QUERY IS PART OF THE PERMANENT MEDICAL RECORD Other Diagnosis: not septic arthritis
--- NOTE | 2022-07-12 13:36 | P.CDIC_ITS ---
CDI Concurrent Query Documentation Clarification: PHYSICIAN'S DOCUMENTATION REQUEST Date of Query: 07/12/22 1338 Patient Name: Jennifer English Admit Date: 06/28/22 Dear Doctor, A review of the medical record indicates additional documentation may be needed. Please review below and update the documentation accordingly. Clinical Indicators: Is there a diagnosis that correlates with the findings below: Risk Factors/Clinical Indicators/Treatments Per chest xray on 07/11: Central vascular prominence. Increased bronchovascular markings in bilateral lungs, more prominent as compared to previous. This may reflect interstitial pulmonary edema Other indicators/risk factors: -Patient treated for PNA -Patient treated for NSTEMI -Patient with ARF Based on the above, could you please provide, in the Progress Notes, further specificity regarding the acuity and etiology of the pulmonary edema? * Pulmonary edema * Other * Unable to determine Use of terms such as suspected, likely, concern for, or probable (associated with a specific diagnosis that is being evaluated, monitored, or treated as if it exists) are acceptable and can be coded in the inpatient setting, when documented at the time of discharge. Thank you, Dianna Young, MS, RN, CCRN Extension: [phone] Please use your independent medical judgment in providing your response. THIS QUERY IS PART OF THE PERMANENT MEDICAL RECORD Other Diagnosis: not pulmonary edema
[2022-07-12 15:00] VITALS: BP 115/41; PULSE 53; RESP 17; TEMP 36.7; O2SAT 94
[2022-07-12 15:15] VITALS: BP 114/48; PULSE 56; RESP 17; TEMP 36.6; O2SAT 95
[2022-07-12 16:04] LABS: Glucose, Whole Blood 120 mg/dL (60-115)
[2022-07-12 20:00] VITALS: BP 144/87; PULSE 68; RESP 20; TEMP 36.8; O2SAT 94
[2022-07-12 20:12] LABS: Glucose, Whole Blood 214 mg/dL (60-115)
[2022-07-12] MEDS: Insulin Lispro 100 UNIT/ML 3 ML VIAL SUBCUT (20:25)
[2022-07-12] MEDS: clonazePAM 0.5 MG TABLET PO (20:26)
[2022-07-12] MEDS: Melatonin 3 MG TABLET 6 MG PO (20:27)
[2022-07-13] VITALS (8 sets, daily range): BP systolic 117–150; BP diastolic 55–67; PULSE 60–74; RESP 18–20; TEMP 36.7–37; O2SAT 94–97; BMI 28.8
[2022-07-13] MEDS: Acetaminophen 325 MG TABLET 650 MG PO (05:59)
[2022-07-13] MEDS: Simethicone 80 MG TAB.CHEW PO ×4 (06:01→19:48)
[2022-07-13 06:22] LABS: Hematocrit 26.9 % (37.0-47.0); Hemoglobin 9.1 g/dl (12.0-16.0); Mean Corpuscular HGB Conc 33.8 g/dl (31.0-35.0); Mean Corpuscular Hemoglobin 28.7 pg (27.0-33.0); Mean Corpuscular Volume 84.9 fL (80.0-98.0); Mean Platelet Volume 9.5 fL (9.4-12.3); Platelet Count 293 X10*3/uL (160-400); Red Blood Count 3.17 X10*6/uL (4.20-5.50); Red Cell Distribution Width 14.5 % (11.0-16.0); White Blood Count 14.2 X10*3/uL (4.8-10.8)
[2022-07-13 07:46] LABS: Anion Gap 23 (12-20); Blood Urea Nitrogen 63 mg/dL (9-16); Calcium 8.1 mg/dL (8.4-10.2); Carbon Dioxide 16 mmol/L (22-29); Chloride 96 mmol/L (96-108); Creatinine Clr Calc Pharmacy 7.5; Estimated Glomerular Filt Rate 6; Glucose Random 144 mg/dL (60-115); Potassium 4.9 mmol/L (3.3-5.1); Sodium 130 mmol/L (135-145)
[2022-07-13 08:02] LABS: Glucose, Whole Blood 125 mg/dL (60-115)
[2022-07-13] MEDS: hydrALAZINE HCl 25 MG TABLET PO ×3 (10:06→19:48)
[2022-07-13] MEDS: Cholestyramine (With Sugar) 4 GM POWD.PACK PO (10:06)
[2022-07-13] MEDS: Sennosides 8.6 MG TABLET 17.2 MG PO ×2 (10:09→19:48)
[2022-07-13] MEDS: amLODIPine Besylate 10 MG TABLET PO (10:10)
[2022-07-13] MEDS: Nystatin Oral Susp 500,000 UNIT/5 ML ORAL.SUSP 100000 UNIT BUCCAL ×2 (10:10→19:49)
[2022-07-13] MEDS: Isosorbide Dinitrate 10 MG TABLET PO ×3 (10:10→18:01)
[2022-07-13] MEDS: Insulin Glargine,Hum.rec.anlog 100 UNIT/ML 10 ML VIAL 30 UNIT SUBCUT (10:11)
[2022-07-13] MEDS: Docusate Sodium 100 MG CAPSULE PO ×2 (10:11→19:48)
--- NOTE | 2022-07-13 10:30 | MHC.CM.PN ---
Per ROUNDS discussion, Patient is medically cleared for dc. Patient has been accepted at both SNFs that have on-site HD but [facility] will not have a HD slot until Monday07/15/2022 and [facility] will not have a HD slot until week of 07/18/2022. CM has reached out to Dr. Santos and informed Dr. Dowling of this information. CM will follow.
[2022-07-13 11:09] LABS: Glucose, Whole Blood 224 mg/dL (60-115)
[2022-07-13] MEDS: Insulin Lispro 100 UNIT/ML 3 ML VIAL SUBCUT ×3 (11:45→20:08)
[2022-07-13] MEDS: clonazePAM 0.5 MG TABLET PO ×2 (11:48→19:48)
--- NOTE | 2022-07-13 15:36 | HO.PM.IMPN ---
Subjective Subjective Date of Service: 07/13/22 Interval History: Resting in bed offers no acute complaints other than tiredness, status post PermCath placement yesterday, Plavix and Eliquis are on hold, denies chest pain complaining of discomfort elbow left foot at site of wound, denies fever chills no other acute issues overnight, received hemodialysis this morning Review of Systems Review of Systems: Yes all other systems are reviewed and are negative Physical Exam Vital Signs: Vital Signs: Last Vital Signs Temp 98.4 F 07/13/22 11:01 Pulse 74 07/13/22 11:59 Resp 20 07/13/22 11:01 BP 137/64 07/13/22 11:01 Pulse Ox 96 07/13/22 11:01 O2 Del Method 07/13/22 11:01 O2 Flow Rate 3 07/02/22 07:00 FiO2 30 07/01/22 09:00 BMI result Body Mass Index 28.8 Const: Other: General frail appearing, resting comfortably in no acute distress. Neck is supple no JVD. CVS regular rate rhythm, Respiratory lungs clear to auscultation, no respiratory distress, no wheeze, no rhonchi. Gastrointestinal abdomen soft, nontender, bowel sounds audible Extremities no edema. Neuro nonfocal, speech clear. Left foot plantar ulcer, left elbow wound with dressing in place no drainage Psych flat affect Objective Data Active Medications Acetaminophen (Acetaminophen 325 Mg Tablet) 650 mg PO Q6H PRN PRN Reason: Pain, Moderate (Pain Scale 4-6 Last Admin: 07/13/22 05:59 Dose: 650 mg Documented By: IFRAH Amlodipine Besylate (Amlodipine Besylate 10 Mg Tablet) 10 mg PO DAILY [facility]; Protocol Last Admin: 07/13/22 10:10 Dose: 10 mg Documented By: IFRAH Apixaban (Apixaban 2.5 Mg Tablet) 2.5 mg PO BID [facility] Last Admin: 07/06/22 09:49 Dose: Not Given Documented By: FREDDIE Non-Admin Reason: Off Unit: Surgery Cholestyramine Resin (Cholestyramine (With Sugar) 4 Gm Powd.Pack) 4 gm PO DAILY [facility] Last Admin: 07/13/22 10:06 Dose: 4 gm Documented By: IFRAH Clonazepam (Clonazepam 0.5 Mg Tablet) 0.5 mg PO TID PRN PRN Reason: anxiety/restlessness Last Admin: 07/13/22 11:48 Dose: 0.5 mg Documented By: GLENDY Clopidogrel Bisulfate (Clopidogrel Bisulfate 75 Mg Tablet) 75 mg PO DAILY [facility] Last Admin: 07/07/22 09:27 Dose: 75 mg Documented By: BUDDY Dextrose (Dextrose 50 % 25 Gm/50 Ml Syringe) 25 gm IVPUSH Q30M PRN PRN Reason: Nursing Actions in Insulin Infusion Protocol Docusate Sodium (Docusate Sodium 100 Mg Capsule) 100 mg PO BID [facility] Last Admin: 07/13/22 10:11 Dose: 100 mg Documented By: IFRAH Hydralazine HCl (Hydralazine Hcl 25 Mg Tablet) 25 mg PO TID [facility]; Protocol Last Admin: 07/13/22 10:06 Dose: 25 mg Documented By: IFRAH Insulin Glargine (Insulin Glargine,Hum.Rec.Anlog 100 Unit/Ml 10 Ml Vial) 30 unit SUBCUT DAILY [facility] Last Admin: 07/13/22 10:11 Dose: 30 unit Documented By: IFRAH Insulin Human Lispro (Insulin Lispro 100 Unit/Ml 3 Ml Vial) 0.1 - 10 unit SUBCUT QIDACHS [facility]; Protocol Last Admin: 07/13/22 11:45 Dose: 4 unit Documented By: GLENDY Isosorbide Dinitrate (Isosorbide Dinitrate 10 Mg Tablet) 10 mg PO TID@0800,1300,1800 [facility]; Protocol Last Admin: 07/13/22 14:49 Dose: 10 mg Documented By: GLENDY Melatonin (Melatonin 3 Mg Tablet) 6 mg PO BEDTIME PRN PRN Reason: insomnia Last Admin: 07/12/22 20:27 Dose: 6 mg Documented By: MARLEN Metoprolol Tartrate (Metoprolol Tartrate 12.5 Mg Halftab) 12.5 mg PO BID [facility]; Protocol Last Admin: 07/08/22 21:04 Dose: 12.5 mg Documented By: EVON Nitroglycerin (Nitroglycerin 0.4 Mg Tab.Subl) 0.4 mg SUBLINGUAL Q5MX3 PRN PRN Reason: Chest Pain Nystatin (Nystatin Oral Susp 500,000 Unit/5 Ml Oral.Susp) 100,000 unit BUCCAL TID [facility]; Protocol Last Admin: 07/13/22 14:51 Dose: Not Given Documented By: GLENDY Non-Admin Reason: Patient Refused Ondansetron HCl (Ondansetron Hcl 4 Mg/2 Ml Vial) 4 mg IVPUSH Q8H PRN PRN Reason: nausea Senna (Sennosides 8.6 Mg Tablet) 17.2 mg PO BID [facility] Last Admin: 07/13/22 10:09 Dose: 17.2 mg Documented By: IFRAH Simethicone (Simethicone 80 Mg Tab.Chew) 80 mg PO QIDWMHS [facility] Last Admin: 07/13/22 11:45 Dose: 80 mg Documented By: GLENDY Labs 07/13/22 05:36 07/13/22 05:36 Labs: Laboratory Results - last 24 hr 07/12/22 07/12/22 07/13/22 15:57 20:09 05:36 MCV 84.9 MCH 28.7 MCHC 33.8 RDW 14.5 Plt Count 293 D MPV 9.5 Absolute Nucleated RBC 0.000 Nucleated RBC % (auto) 0.0 Anion Gap Estim Creat Clear Calc Estimated GFR POC Glucose 120 H 214 H Random Glucose Calcium 07/13/22 07/13/22 07/13/22 05:36 07:58 11:05 MCV MCH MCHC RDW Plt Count MPV Absolute Nucleated RBC Nucleated RBC % (auto) Anion Gap 23 H Estim Creat Clear Calc 7.5 Estimated GFR 6 POC Glucose 125 H 224 H Random Glucose 144 H Calcium 8.1 L Assessment and Plan (1) NSTEMI (non-ST elevated myocardial infarction): Status: Acute Plan 77yo F with DM, HTN, atrial flutter who fell in her bathroom and was down an estimated 24-36 hr.? Found to be an JHONNY due to rhabdomyolysis, with NSTEMI.? Intubated and subsequently required HD.? Extubated and stepped down [facility] 07[facility]22.? Now HD-dependent.? Also has positive stress MIBI. L elbow wound, left foot wound, left hip, coccyx Wound Care consult rec. Silver alginate cut to fit wound and gauze Seen by Dr. Mazzucco he recommend no further debridement,continue wound care orders every other day Nausea and abd. bloating due to stool stasis, patient received Fleet enema with good results. Continue ada diet. NSTEMI persistent WMA on repeat TTE, nuclear stress test with?mixed ischemia / infarct to the mid to distal inferior lateral wall, patient did not receive heparin since was on Eliquis, subsequently Plavix added, medical management as per Cardiology continue Isordil, hydralazine, metoprolol, and clopidogrel Hyponatremia. 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 Hypertension continue amlodipine; Isordil, metoprolol and hydralazine DM2 Blood sugar elevated this morning continue insulin sliding scale, ada diet VTE ppx: apixaban DISPO plan for STR In my clinical judgment, the patient requires continued inpatient hospitalization for continued hemodialysis while arrangements being made for outpatient hemodialysis. Time Spent With Patient Time: Total time managing care of this patient today ____ minutes. Quality Stroke Does the patient have a stroke diagnosis?: No VTE Prior VTE?: No VTE Risk Level:: Medical - moderate - high VTE Device Contraindication: N/A - Device Ordered VTE Drug Contraindication: Treatment Not Tolerated
[2022-07-13 16:35] LABS: Glucose, Whole Blood 293 mg/dL (60-115)
[2022-07-13] MEDS: Melatonin 3 MG TABLET 6 MG PO (19:48)
[2022-07-13] MEDS: Apixaban 2.5 MG TABLET PO (19:48)
[2022-07-13 20:00] LABS: Glucose, Whole Blood 168 mg/dL (60-115)
[2022-07-14] VITALS (7 sets, daily range): BP systolic 116–148; BP diastolic 54–73; PULSE 66–70; RESP 12–20; TEMP 36.2–36.6; O2SAT 92–96; BMI 27.3
[2022-07-14 07:49] LABS: Glucose, Whole Blood 133 mg/dL (60-115)
[2022-07-14] MEDS: Nystatin Oral Susp 500,000 UNIT/5 ML ORAL.SUSP 100000 UNIT BUCCAL ×3 (08:25→20:50)
[2022-07-14] MEDS: Cholestyramine (With Sugar) 4 GM POWD.PACK PO (08:25)
[2022-07-14] MEDS: Insulin Glargine,Hum.rec.anlog 100 UNIT/ML 10 ML VIAL 30 UNIT SUBCUT (08:25)
[2022-07-14] MEDS: Apixaban 2.5 MG TABLET PO ×2 (08:26→20:49)
[2022-07-14] MEDS: Isosorbide Dinitrate 10 MG TABLET PO ×3 (08:26→16:05)
[2022-07-14] MEDS: Simethicone 80 MG TAB.CHEW PO ×4 (08:26→20:48)
[2022-07-14] MEDS: hydrALAZINE HCl 25 MG TABLET PO ×3 (08:26→20:51)
[2022-07-14] MEDS: Docusate Sodium 100 MG CAPSULE PO ×2 (08:26→20:48)
[2022-07-14] MEDS: Sennosides 8.6 MG TABLET 17.2 MG PO ×2 (08:26→20:49)
[2022-07-14] MEDS: amLODIPine Besylate 10 MG TABLET PO (08:27)
[2022-07-14] MEDS: Clopidogrel Bisulfate 75 MG TABLET PO (08:27)
[2022-07-14] MEDS: clonazePAM 0.5 MG TABLET PO ×2 (08:31→20:49)
[2022-07-14 11:35] LABS: Glucose, Whole Blood 202 mg/dL (60-115)
--- NOTE | 2022-07-14 11:49 | PM.PNNEP ---
Subjective Subjective Date of Service: 07/14/22 Principal diagnosis: atrial flutter, NSTEMI Interval history: Seen and examined, events noted Physical Exam Vital Signs: Vital Signs: Last Vital Signs Temp 97.6 F 07/14/22 11:25 Pulse 70 07/14/22 11:25 Resp 12 07/14/22 11:25 BP 119/58 L 07/14/22 11:25 Pulse Ox 96 07/14/22 11:25 O2 Del Method 07/14/22 11:25 O2 Flow Rate 3 07/02/22 07:00 FiO2 30 07/01/22 09:00 BMI result Body Mass Index 27.3 Const: Other: Intubated General: no acute distress HEENT: Head: Yes normocephalic and Yes atraumatic Neck: Neck: Yes supple Resp: Auscultation: diminished lung sounds Cardio: Rate: regular rate Heart sounds: S1 normal heart sound present and S2 normal heart sound present GI: Palpation (GI): Soft to palpation and nontender Neuro: Other: Sedated Extrem: General: No edema Objective Data Labs 07/13/22 05:36 07/13/22 05:36 Labs: Laboratory Results - last 24 hr 07/13/22 07/13/22 07/14/22 16:32 19:54 07:28 POC Glucose 293 H 168 H 133 H 07/14/22 11:21 POC Glucose 202 H Microbiology Microbiology Results: Microbiology 06/28/22 15:42 Blood - Venous Blood Culture - Final No growth after 5 days. 06/28/22 13:59 Blood - Venous Blood Culture - Final No growth after 5 days. 06/28/22 17:03 Urine clean catch - Urine ryan top Urine Culture - Final Procedures Date of Service Date of Service: 07/14/22 Assessment & Plan Assessment and plan (1) JHONNY (acute kidney injury): Status: Acute (2) Hyponatremia: Status: Acute (3) Metabolic acidosis: Status: Acute Plan - Oliguric JHONNY: working Dx is Rhabdo assoc ATN with delayed recovery and cont HD dependent BSL SCr 1.0 -Hemoaccess: PC to be placed by IR ( was not done yesterday) REC: cont HD mwf for now and I will arrange an outpt HD spot ( I called and they are working on getting her a spot);ideally would consider a Dx kidney Bx but overall very frail and thus will hold off with Bx for now and instead cont to monitor for signs of renal recovery and will consider kidney Bx next wk as outpt but would need to be off eliquis to do Bx Time Spent With Patient Time: Total time managing care of this patient today ____ minutes. Progress Note: Quality Stroke Does the patient have a stroke diagnosis?: No
[2022-07-14] MEDS: Insulin Lispro 100 UNIT/ML 3 ML VIAL SUBCUT ×3 (12:08→20:57)
[2022-07-14 15:30] LABS: Glucose, Whole Blood 199 mg/dL (60-115)
--- NOTE | 2022-07-14 15:48 | HO.PM.IMPN ---
Subjective Subjective Date of Service: 07/14/22 Physical Exam Vital Signs: Vital Signs: Last Vital Signs Temp 97.9 F 07/14/22 14:59 Pulse 67 07/14/22 14:59 Resp 17 07/14/22 14:59 BP 128/65 07/14/22 14:59 Pulse Ox 95 07/14/22 14:59 O2 Del Method 07/14/22 14:59 O2 Flow Rate 3 07/02/22 07:00 FiO2 30 07/01/22 09:00 BMI result Body Mass Index 27.3 Objective Data Active Medications Acetaminophen (Acetaminophen 325 Mg Tablet) 650 mg PO Q6H PRN PRN Reason: Pain, Moderate (Pain Scale 4-6 Last Admin: 07/13/22 05:59 Dose: 650 mg Documented By: IFRAH Amlodipine Besylate (Amlodipine Besylate 10 Mg Tablet) 10 mg PO DAILY [facility]; Protocol Last Admin: 07/14/22 08:27 Dose: 10 mg Documented By: HORACE Apixaban (Apixaban 2.5 Mg Tablet) 2.5 mg PO BID [facility] Last Admin: 07/14/22 08:26 Dose: 2.5 mg Documented By: HORACE Cholestyramine Resin (Cholestyramine (With Sugar) 4 Gm Powd.Pack) 4 gm PO DAILY [facility] Last Admin: 07/14/22 08:25 Dose: 4 gm Documented By: HORACE Clonazepam (Clonazepam 0.5 Mg Tablet) 0.5 mg PO TID PRN PRN Reason: anxiety/restlessness Last Admin: 07/14/22 08:31 Dose: 0.5 mg Documented By: HORACE Clopidogrel Bisulfate (Clopidogrel Bisulfate 75 Mg Tablet) 75 mg PO DAILY [facility] Last Admin: 07/14/22 08:27 Dose: 75 mg Documented By: HORACE Dextrose (Dextrose 50 % 25 Gm/50 Ml Syringe) 25 gm IVPUSH Q30M PRN PRN Reason: Nursing Actions in Insulin Infusion Protocol Docusate Sodium (Docusate Sodium 100 Mg Capsule) 100 mg PO BID [facility] Last Admin: 07/14/22 08:26 Dose: 100 mg Documented By: HORACE Hydralazine HCl (Hydralazine Hcl 25 Mg Tablet) 25 mg PO TID [facility]; Protocol Last Admin: 07/14/22 08:26 Dose: 25 mg Documented By: HORACE Insulin Glargine (Insulin Glargine,Hum.Rec.Anlog 100 Unit/Ml 10 Ml Vial) 30 unit SUBCUT DAILY [facility] Last Admin: 07/14/22 08:25 Dose: 30 unit Documented By: HORACE Insulin Human Lispro (Insulin Lispro 100 Unit/Ml 3 Ml Vial) 0.1 - 10 unit SUBCUT QIDACHS [facility]; Protocol Last Admin: 07/14/22 12:08 Dose: 4 unit Documented By: HORACE Isosorbide Dinitrate (Isosorbide Dinitrate 10 Mg Tablet) 10 mg PO TID@0800,1300,1800 [facility]; Protocol Last Admin: 07/14/22 12:08 Dose: 10 mg Documented By: HORACE Melatonin (Melatonin 3 Mg Tablet) 6 mg PO BEDTIME PRN PRN Reason: insomnia Last Admin: 07/13/22 19:48 Dose: 6 mg Documented By: ED Metoprolol Tartrate (Metoprolol Tartrate 12.5 Mg Halftab) 12.5 mg PO BID [facility]; Protocol Last Admin: 07/08/22 21:04 Dose: 12.5 mg Documented By: EVON Nitroglycerin (Nitroglycerin 0.4 Mg Tab.Subl) 0.4 mg SUBLINGUAL Q5MX3 PRN PRN Reason: Chest Pain Nystatin (Nystatin Oral Susp 500,000 Unit/5 Ml Oral.Susp) 100,000 unit BUCCAL TID [facility]; Protocol Last Admin: 07/14/22 08:25 Dose: 100,000 unit Documented By: HORACE Ondansetron HCl (Ondansetron Hcl 4 Mg/2 Ml Vial) 4 mg IVPUSH Q8H PRN PRN Reason: nausea Senna (Sennosides 8.6 Mg Tablet) 17.2 mg PO BID [facility] Last Admin: 07/14/22 08:26 Dose: 17.2 mg Documented By: HORACE Sertraline HCl (Sertraline Hcl 25 Mg Tablet) 25 mg PO BEDTIME [facility] Simethicone (Simethicone 80 Mg Tab.Chew) 80 mg PO QIDWMHS [facility] Last Admin: 07/14/22 12:08 Dose: 80 mg Documented By: HORACE Labs 07/13/22 05:36 07/13/22 05:36 Labs: Laboratory Results - last 24 hr 07/13/22 07/13/22 07/14/22 16:32 19:54 07:28 POC Glucose 293 H 168 H 133 H 07/14/22 07/14/22 11:21 15:25 POC Glucose 202 H 199 H Assessment and Plan (1) NSTEMI (non-ST elevated myocardial infarction): Status: Acute Plan 77yo F with DM, HTN, atrial flutter who fell in her bathroom and was down an estimated 24-36 hr.? Found to be an JHONNY due to rhabdomyolysis, with NSTEMI.? Intubated and subsequently required HD.? Extubated and stepped down to [facility] 07/02/22.? Now HD-dependent.? Also has positive stress MIBI. L elbow wound, left foot wound, left hip, coccyx Wound Care consult rec. Silver alginate cut to fit wound and gauze Seen by Dr. Singh he recommend no further debridement,continue wound care orders every other day Nausea and abd. bloating due to stool stasis, patient received Fleet enema with good results. Continue ada diet. Acute MA persistent WMA on repeat TTE, nuclear stress test with?mixed ischemia/infarct to the mid to distal inferior lateral wall, patient did not receive heparin since was on Eliquis, subsequently Plavix added, medical management as per Cardiology continue Isordil, hydralazine, metoprolol, and clopidogrel. Hyponatremia. 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 Hypertension continue amlodipine; Isordil, and hydralazine DM2 Blood sugar elevated , on insulin sliding scale, ada diet was on glipizide and metformin, hemoglobin A1c 7.5 Depression patient complained of being depressed, was started on Klonopin 0.5 mg t.i.d. as needed, patient wishes to be seen by psychiatrist therefore psychiatry consult obtained patient seen by Dr. Morataya and started on low-dose Zoloft psych also recommend therapy. VTE ppx: apixaban DISPO plan for STR In my clinical judgment, the patient requires continued inpatient hospitalization for continued hemodialysis while arrangements being made for outpatient hemodialysis. Time Spent With Patient Time: Total time managing care of this patient today ____ minutes. Quality Stroke Does the patient have a stroke diagnosis?: No VTE Prior VTE?: No VTE Risk Level:: Medical - moderate - high VTE Device Contraindication: N/A - Device Ordered VTE Drug Contraindication: Treatment Not Tolerated
[2022-07-14] MEDS: Acetaminophen 325 MG TABLET 650 MG PO (16:05)
--- NOTE | 2022-07-14 18:28 | P.CNPS_ITS ---
History of Present Illness Date of Service: 07/14/2022 Chief Complaint: Dialysis Reason for Consult: depression HPI Narrative: CTSP for c/o depression. pt is a 77 yo female with recent complicated and severe medical problems, who reportedly has complained of low mood since admission. she reports having been admitted between 1 and 2 weeks ago. she states that prior to her admission to the hospital her mood was good, she was sleeping 8 hours nightly (her usual), she was motivated and enjoyed her usual activities, she was not having hopeless or ruminatively guilty thoughts, her energy was good, her concentration was adequate, her appetite was good, and she had no suicidal ideations. in short, she was having no symptoms of depression. her demoralization in the face of such serious medical problems was normalized, and she was strongly encouraged to engage in therapy to get through this difficult time in her life. she requested medication as well, and R/B of sertraline were discussed with her. she agreed to start sertraline 25 mg QHS as of tonight. Past Psychiatric History: hospitalizations: pt reports h/o 2 psychiatric hospitalizations, remote, for depression SA: denies suicide attempt. SIB: denies self-injurious behavior. denies h/o trauma, explicitly physical or sexual abuse. reports ongoing therapy, once every 2-3 months denies any h/o psychiatric medication, including during and after her 2 hospitalizations. Medical Evaluation Reviewed: Yes [facility] Medical History Hypercholesterolemia Hypertension Insomnia Obesity (BMI 30.0-34.9) Osteoarthrosis Overweight (BMI 25.0-29.9) Primary osteoarthritis of left knee Second degree AV block Tobacco abuse Type 2 diabetes mellitus with hyperglycemia Surgical History H/O breast reconstruction History of cholecystectomy History of hip replacement History of tonsillectomy Family History: denies Social History: HS grad. 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 lives in a rented apartment, alone. never , one child, a daughter now 51 yo. one of 4 children. her brother and one of her two sisters are . her surviving sister was at bedside at the start of the interview. Substance History: alcohol - states none in 1-2 years tobacco - last used a few months ago denies problematic substance use Hx or use of substances other than the above. Trauma History: denies Diagnostics Vital Signs (24Hr): Vital Signs - 24 hr 07/13/22 19:39 07/13/22 23:52 07/14/22 03:26 Temperature 98.4 F 98.6 F 97.4 F Pulse Rate 70 68 67 Respiratory Rate 18 18 14 Blood Pressure 134/61 139/60 148/73 H Pulse Oximetry 96 94 94 Oxygen Delivery Method Room Air Room Air Room Air 07/14/22 08:00 07/14/22 11:25 07/14/22 14:59 Temperature 97.5 F 97.6 F 97.9 F Pulse Rate 69 70 67 Respiratory Rate 12 12 17 Blood Pressure 141/61 H 119/58 L 128/65 Pulse Oximetry 92 96 95 Oxygen Delivery Method Room Air Room Air Room Air BMI result Body Mass Index 27.3 Labs 07/13/22 05:36 07/13/22 05:36 Labs: Laboratory Results - last 48 hr 07/12/22 07/13/22 07/13/22 20:09 05:36 05:36 WBC 14.2 H RBC 3.17 L Hgb 9.1 L Hct 26.9 L MCV 84.9 MCH 28.7 MCHC 33.8 RDW 14.5 Plt Count 293 D MPV 9.5 Absolute Nucleated RBC 0.000 Nucleated RBC % (auto) 0.0 Sodium 130 L Potassium 4.9 D Chloride 96 Carbon Dioxide 16 L Anion Gap 23 H BUN 63 H Creatinine 6.58 H* Estim Creat Clear Calc 7.5 Estimated GFR 6 POC Glucose 214 H Random Glucose 144 H Calcium 8.1 L 07/13/22 07/13/22 07/13/22 07:58 11:05 16:32 WBC RBC Hgb Hct MCV MCH MCHC RDW Plt Count MPV Absolute Nucleated RBC Nucleated RBC % (auto) Sodium Potassium Chloride Carbon Dioxide Anion Gap BUN Creatinine Estim Creat Clear Calc Estimated GFR POC Glucose 125 H 224 H 293 H Random Glucose Calcium 07/13/22 07/14/22 07/14/22 19:54 07:28 11:21 WBC RBC Hgb Hct MCV MCH MCHC RDW Plt Count MPV Absolute Nucleated RBC Nucleated RBC % (auto) Sodium Potassium Chloride Carbon Dioxide Anion Gap BUN Creatinine Estim Creat Clear Calc Estimated GFR POC Glucose 168 H 133 H 202 H Random Glucose Calcium 07/14/22 15:25 WBC RBC Hgb Hct MCV MCH MCHC RDW Plt Count MPV Absolute Nucleated RBC Nucleated RBC % (auto) Sodium Potassium Chloride Carbon Dioxide Anion Gap BUN Creatinine Estim Creat Clear Calc Estimated GFR POC Glucose 199 H Random Glucose Calcium Imaging Radiology Impressions: ITS Impressions Chest CT 06/28/22 14:53 IMPRESSION: 1. Left upper lobe pneumonia. 2. No acute abnormality the abdomen or pelvis. Head CT 06/28/22 14:54 IMPRESSION: 1. No acute intracranial pathology. 2. No CT evidence of acute cervical spine fracture or traumatic subluxation Abdomen/Pelvis CT 06/28/22 14:55 IMPRESSION: 1. Left upper lobe pneumonia. 2. No acute abnormality the abdomen or pelvis. Cervical Spine CT 06/28/22 14:55 IMPRESSION: 1. No acute intracranial pathology. 2. No CT evidence of acute cervical spine fracture or traumatic subluxation Hip/Pelvis X-Ray 06/28/22 17:00 IMPRESSION: 1. No acute displaced fracture of the hip. If the pain persists consider CT for follow-up. 2. 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 Chest X-Ray 06/28/22 22:00 IMPRESSION: 1. Endotracheal tube tip terminates approximately 4.2 cm above the keshia. 2. Right IJ central venous catheter tip projects over the right atrium. 3. No pneumothorax. 4. Patchy bilateral airspace opacities, left greater than right, suspicious for pneumonia. Chest X-Ray 06/29/22 04:55 IMPRESSION: 1. Endotracheal tube terminates 3.5 cm above the keshia. 2. Enteric tube terminates in the stomach with the side-port near the gastroesophageal junction. Consider advancement. 3. Patchy peripheral left mid to lower lung opacities are again noted. Chest X-Ray 07/02/22 16:17 IMPRESSION: 1. Interval extubation and removal of NG tube. 2. Low lung volumes with probable mild left basilar atelectasis. 3. No acute pulmonary process. 4. No evidence of pulmonary edema or pleural effusions. Myocardial Perfusion Scan Nuc Med 07/06/22 12:00 Impression: 1. Myocardial perfusion imaging study shows mixed ischemia/infarct pattern in the mid to distal inferolateral wall. 2. Gated LVEF is 59% during stress and 65% during rest. 3. Transient ischemic dilatation not present. EKG component of the test reported separately. KUB X-Ray 07/09/22 09:56 IMPRESSION: Distended loops of small bowel consistent with small bowel obstruction or ileus. Chest X-Ray 07/11/22 10:13 IMPRESSION: Central vascular prominence. Increased bronchovascular markings in bilateral lungs, more prominent as compared to previous. This may reflect interstitial pulmonary edema, or could reflect infectious/inflammatory process. No dense consolidation is seen. Suggest follow-up imaging for reassessment. Abdomen/Pelvis CT 07/11/22 17:37 IMPRESSION: 1. No acute intra-abdominal process identified. 2. No evidence of bowel obstruction. Fecalization of contents of distal small bowel loops in the right lower quadrant/pelvis suggesting some stasis. 3. Moderate amount of formed stool in the rectum. 4. New small left pleural effusion. Airspace consolidation in the left upper lobe/lingula has improved. There is some mild patchy opacity in the right middle and right lower lobe, presumably representing inflammatory/infectious etiology 5. Additional chronic findings, as described. Catheter Change 07/12/22 14:46 IMPRESSION: Successful conversion of right temporary dialysis catheter with a tunneled right permacatheter. The catheter tip lies within the [id number] SVC and is ready for use. Fluoroscopy Time: 0.7 minutes. Dose Area Product: 127 cGy-cm2. Sedation Time: 45 minutes. Mental Status Exam Mental Status Exam Narrative: supine in hospital bed wearing [facility]. disheveled. no PMA/PMR. cooperative. speech soft, flat, decreased in amount, increased in latency. thoughts linear and logical without delusions or paranoia. affect constricted, hypo-intense, non-labile. mood not too bad today. denies SI/HI/AVH. grossly cognitively intact. Medications Medications Current Medications Acetaminophen (Acetaminophen 325 Mg Tablet) 650 mg PO Q6H PRN PRN Reason: Pain, Moderate (Pain Scale 4-6 Last Admin: 07/14/22 16:05 Dose: 650 mg Amlodipine Besylate (Amlodipine Besylate 10 Mg Tablet) 10 mg PO DAILY [facility]; Protocol Last Admin: 07/14/22 08:27 Dose: 10 mg Apixaban (Apixaban 2.5 Mg Tablet) 2.5 mg PO BID [facility] Last Admin: 07/14/22 08:26 Dose: 2.5 mg Cholestyramine Resin (Cholestyramine (With Sugar) 4 Gm Powd.Pack) 4 gm PO DAILY [facility] Last Admin: 07/14/22 08:25 Dose: 4 gm Clonazepam (Clonazepam 0.5 Mg Tablet) 0.5 mg PO TID PRN PRN Reason: anxiety/restlessness Last Admin: 07/14/22 08:31 Dose: 0.5 mg Clopidogrel Bisulfate (Clopidogrel Bisulfate 75 Mg Tablet) 75 mg PO DAILY [facility] Last Admin: 07/14/22 08:27 Dose: 75 mg Dextrose (Dextrose 50 % 25 Gm/50 Ml Syringe) 25 gm IVPUSH Q30M PRN PRN Reason: Nursing Actions in Insulin Infusion Protocol Docusate Sodium (Docusate Sodium 100 Mg Capsule) 100 mg PO BID [facility] Last Admin: 07/14/22 08:26 Dose: 100 mg Hydralazine HCl (Hydralazine Hcl 25 Mg Tablet) 25 mg PO TID [facility]; Protocol Last Admin: 07/14/22 15:59 Dose: 25 mg Insulin Glargine (Insulin Glargine,Hum.Rec.Anlog 100 Unit/Ml 10 Ml Vial) 30 unit SUBCUT DAILY [facility] Last Admin: 07/14/22 08:25 Dose: 30 unit Insulin Human Lispro (Insulin Lispro 100 Unit/Ml 3 Ml Vial) 0.1 - 10 unit SUBCUT QIDACHS [facility]; Protocol Last Admin: 07/14/22 15:59 Dose: 2 unit Isosorbide Dinitrate (Isosorbide Dinitrate 10 Mg Tablet) 10 mg PO TID@0800,1300,1800 [facility]; Protocol Last Admin: 07/14/22 16:05 Dose: 10 mg Melatonin (Melatonin 3 Mg Tablet) 6 mg PO BEDTIME PRN PRN Reason: insomnia Last Admin: 07/13/22 19:48 Dose: 6 mg Metoprolol Tartrate (Metoprolol Tartrate 12.5 Mg Halftab) 12.5 mg PO BID [facility]; Protocol Last Admin: 07/08/22 21:04 Dose: 12.5 mg Nitroglycerin (Nitroglycerin 0.4 Mg Tab.Subl) 0.4 mg SUBLINGUAL Q5MX3 PRN PRN Reason: Chest Pain Nystatin (Nystatin Oral Susp 500,000 Unit/5 Ml Oral.Susp) 100,000 unit BUCCAL TID [facility]; Protocol Last Admin: 07/14/22 15:58 Dose: 100,000 unit Ondansetron HCl (Ondansetron Hcl 4 Mg/2 Ml Vial) 4 mg IVPUSH Q8H PRN PRN Reason: nausea Senna (Sennosides 8.6 Mg Tablet) 17.2 mg PO BID [facility] Last Admin: 07/14/22 08:26 Dose: 17.2 mg Sertraline HCl (Sertraline Hcl 25 Mg Tablet) 25 mg PO BEDTIME [facility] Simethicone (Simethicone 80 Mg Tab.Chew) 80 mg PO QIDWMHS [facility] Last Admin: 07/14/22 15:59 Dose: 80 mg Allergies Allergies Allergy/AdvReac Type Severity Reaction Status Date / Time No Known Allergies Allergy Verified 04/19/22 10:33 [No Known Allergies*] Assessment & Plan Assessment & Plan (1) Adjustment disorder with depressed mood: Status: Acute Code(s): F43.21 - Adjustment disorder with depressed mood Plan pt counseled to engage in therapy through this difficult time. she requested antidepressant, zoloft was started at 25 mg QHS. Total time managing care of this patient today ___50_ minutes.
[2022-07-14 19:33] LABS: Glucose, Whole Blood 183 mg/dL (60-115)
[2022-07-14] MEDS: Melatonin 3 MG TABLET 6 MG PO (20:48)
[2022-07-14] MEDS: Sertraline HCL 25 MG TABLET PO (20:49)
[2022-07-15 04:00] VITALS: BP 144/75; PULSE 68; RESP 20; TEMP 36.3; O2SAT 94
[2022-07-15 06:00] VITALS: BMI 28.5
[2022-07-15 08:00] VITALS: BP 152/66; PULSE 69; RESP 14; TEMP 36.3; O2SAT 94
[2022-07-15 08:10] LABS: Glucose, Whole Blood 116 mg/dL (60-115)
[2022-07-15] MEDS: Apixaban 2.5 MG TABLET PO (09:12)
[2022-07-15] MEDS: Clopidogrel Bisulfate 75 MG TABLET PO (09:12)
[2022-07-15] MEDS: Nystatin Oral Susp 500,000 UNIT/5 ML ORAL.SUSP 100000 UNIT BUCCAL ×2 (09:12→16:33)
[2022-07-15] MEDS: Docusate Sodium 100 MG CAPSULE PO (09:12)
[2022-07-15] MEDS: Cholestyramine (With Sugar) 4 GM POWD.PACK PO (09:12)
[2022-07-15] MEDS: Simethicone 80 MG TAB.CHEW PO ×3 (09:12→16:33)
[2022-07-15] MEDS: hydrALAZINE HCl 25 MG TABLET PO ×2 (09:13→16:32)
[2022-07-15] MEDS: Sennosides 8.6 MG TABLET 17.2 MG PO (09:13)
[2022-07-15] MEDS: Isosorbide Dinitrate 10 MG TABLET PO ×2 (09:13→13:30)
[2022-07-15] MEDS: amLODIPine Besylate 10 MG TABLET PO (09:14)
--- NOTE | 2022-07-15 11:44 | PM.PNNEP ---
Subjective Subjective Date of Service: 07/15/22 Principal diagnosis: atrial flutter, NSTEMI Interval history: seen and examined on dialysis no complaints Physical Exam Vital Signs: Vital Signs: Last Vital Signs Temp 97.3 F 07/15/22 08:00 Pulse 69 07/15/22 08:00 Resp 14 07/15/22 08:00 BP 152/66 H 07/15/22 08:00 Pulse Ox 94 07/15/22 08:00 O2 Del Method 07/15/22 08:00 O2 Flow Rate 3 07/02/22 07:00 FiO2 30 07/01/22 09:00 BMI result Body Mass Index 28.5 Const: General: no acute distress HEENT: Head: Yes normocephalic and Yes atraumatic Neck: Neck: Yes supple Resp: Auscultation: diminished lung sounds Cardio: Heart sounds: S1 normal heart sound present and S2 normal heart sound present GI: Palpation (GI): Soft to palpation and nontender Extrem: General: No edema Objective Data Labs 07/13/22 05:36 07/13/22 05:36 Labs: Laboratory Results - last 24 hr 07/14/22 07/14/22 07/15/22 15:25 19:24 08:05 POC Glucose 199 H 183 H 116 H Microbiology Microbiology Results: Microbiology 06/28/22 15:42 Blood - Venous Blood Culture - Final No growth after 5 days. 06/28/22 13:59 Blood - Venous Blood Culture - Final No growth after 5 days. 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 Progress Note: Quality Stroke Does the patient have a stroke diagnosis?: No
[2022-07-15 11:46] LABS: Glucose, Whole Blood 153 mg/dL (60-115)
--- NOTE | 2022-07-15 13:12 | P.DS_ITS ---
DS: Providers Provider Date of Service: 07/15/22 Date of admission: 06/28/22 15:59 Primary care physician: Nayan Pavon MD Consults: 06/28/22 19:30 Consult to Nephrology Stat Consulting Provider: Jerilyn Ugalde Reason for consultation: Dialysis Has provider been notified: Yes 07/03/22 09:25 Consult to Cardiology Stat Consulting Provider: Howie Steele Reason for consultation: chest pain Has provider been notified: Yes 07/06/22 17:21 Consult to Wound Care Routine Consulting Provider: Karen Blanchard Reason for consultation: wound to Left elbow Has provider been notified: Yes 07/10/22 07:46 Consult to General Surgery Routine Consulting Provider: Calvin Zamora Reason for consultation: SBO 07/11/22 07:34 Consult to General Surgery Routine Consulting Provider: Evans Singh Reason for consultation: elbow debridement 07/14/22 11:12 Consult to Psychiatry Routine Consulting Provider: Zayda Diaz Reason for consultation: depression Has provider been notified: No DS: Diagnosis Discharge Diagnosis (1) JHONNY (acute kidney injury): Status: Acute (2) Metabolic acidosis: Status: Acute DS: Summary Hospital Course Hospital Course: Date of Service: 06/28/22 Attending physician on admission: Daryl Yoo Chief Complaint: Fall Patient is a 77-year-old female with a past medical history of diabetes mellitus, atrial flutter / atrial fibrillation ( on Eliquis), hypertension, CVA, coronary artery disease, hypercholesterolemia, and smoker who presented to the emergency room? after sustaining a fall. Patient reports fall over 24 hour before coming to the? emergency room where she lay on the floor for? prolonged periods of time on the left side.? She reported pain all over body, and felt very weak after the fall.?? On the emergency room,? patient was noted to be weak,? respiratory rate 30s, pressure 101/57, satting 91% on room air.? ?Laboratory data? significant for WBC 25.9, platelets 407, serum sodium 149, chloride 112, serum bicarb 9, and anion gap 33, BUN 62, creatinine 3.64, serum osm 352,? lactic acid 2.7, AST 412, [place] 180[place] [address], Trop sens >3600 Initial blood venous gas? 7.06/26/51/8 Imaging:? ?Head/ Cervical spine CT-? no acute findings ?Chest CT-? left lower pneumonia ?Abdominal CT:? no acute finding Xray of R Hip- No acute issues? ED course:? ?C-spine was cleared by ED physician ?Patient received Zosyn 4.5 g, 3 L fluid, 3 amps of bicarb IV push, and started on bicarb drip with 3 amp at 200 mL/ hr.? On arrival at ICU Patient alert and oriented x 3, slightly lethargic, but able to answer question appropriately, denied any chest pain, only reported pain on left hip and arm. Patient anuric. ? Repeat ABGs 7.//10, BPs with MAP of 59-65. Renal consulted, spoke with Dr Ugalde, initially HD was not advised at this time , requested better perfusion with vasopressor support and further lab work.? Later, patient mentation worsened, minimally responding to painful stimuli,? required emergent intubation? for airway protection. Attending Dr Yoo, aware of the case,? He personally spoke to Renal, agreeable to start emergent hemodialysis. Dialysis catheter placed.? ?Patient also went into wide complex tachycardia? with a pulse. Previously the patient denies chest pain,? EKG did not show any acute finding.? Repeated? troponin and chemistries. Hospital course 77yo F with DM, HTN, atrial flutter who fell in her bathroom and was down an estimated 24-36 hr.? Found to be an JHONNY due to rhabdomyolysis, with acute ND.? Intubated and subsequently required HD.? Extub[place] and [place] [facility].? Now HD-dependent.? Also has positive stress MIBI. 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 Sanots. Acute ND patient also noted to have abnormal EKG and elevated troponins, had no chest pain initial echo showed wall motion abnormality with low EF there was concern for takotsubo cardiomyopathy versus underlying ischemia a repeat Angel transthoracic echo go showed persistent WMA , therefore underwent nuclear stress test with?mixed ischemia/infarct to the mid to distal inferior lateral wall, patient did not receive heparin since was on Eliquis, subsequently Plavix added, was followed closely by Cardiology they recommend medical management due to multiple comorbidities, patient started on Plavix, Isordil, hydralazine, and metoprolol that was subsequently discontinued due to bradycardia. Hyponatremia. Sodium 130,secondary to hypervolemia, continue dialysis MWF, and follow BMP In regard to atrial flutter continue Eliquis renally dosed patient was on metoprolol that was discontinued due to bradycardia continue to follow ventricular rate at present patient is in atrial flutter with ventricular rate in 70s L elbow wound, left foot wound, left hip,and coccyx due to fall, patient seen by Wound Care they rec. Silver alginate cut to fit wound and gauze, Seen by Dr. Singh from General surgery he recommend no further debridement,continue wound care orders every other day Hypertension good blood pressure control, continue? amlodipine; Isordil, and hydralazine DM2 was on glipizide and metformin that are discontinued patient now on Lantus insulin and and insulin sliding scale hemoglobin A1c 7.5 Depression evaluated by Psychiatry patient placed on low-dose Zoloft 25 mg and on Klonopin 0.5 mg t.i.d. as needed for anxiety. Time Spent with Patient Time attestation: Total time managing care of this patient today ____ minutes. Discharge coordination time: Greater than 30 minutes Quality: Safe Use of Opioids Does Pt have an Active Cancer Diagnosis on the Problem List?: No Quality: Stroke Does the patient have a stroke diagnosis?: No Physical Exam Vital Signs: Vital Signs: Last Vital Signs Temp 97.3 F 07/15/22 08:00 Pulse 69 07/15/22 08:00 Resp 14 07/15/22 08:00 BP 152/66 H 07/15/22 08:00 Pulse Ox 94 07/15/22 08:00 O2 Del Method 07/15/22 08:00 O2 Flow Rate 3 07/02/22 07:00 FiO2 30 07/01/22 09:00 BMI result Body Mass Index 28.5 Const: Other: General frail appe aring, resting com fortably in no acu te distress.? Neck is supple no JVD. CVS? regular rate rhythm, Respirato ry lungs clear to auscultation, no r espiratory distres s, no wheeze, no r honchi. Gastrointe stinal abdomen sof t, nontender, romero l sounds audible E xtremities no scar a. Neuro nonfocal, speech clear. 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 Acute ND Left elbow, left foot and left coccyx wound Atrial flutter rate control Hypertension Referrals: [facility] [Outside] - 1 Week Po,Nayan Rodriguez MD [Primary Care Provider] - 1 Week Discharge Medications: New Eliquis 2.5 mg Tablet 2.5 mg PO BID Qty: 60 0RF insulin glargine [Lantus U-100 Insulin] 100 unit/mL Solution 30 unit subcut DAILY Qty: 10 0RF clopidogrel 75 mg Tablet 75 mg PO DAILY Qty: 30 0RF insulin lispro [Humalog U-100 Insulin] 100 unit/mL Solution 0.1 - 10 unit subcut QIDACHS Qty: 10 0RF Protocol: Insulin Correction Scale Less than or equal to 110 ---- Give (units): 0 111 to 150 Give (units): 0 151 to 200 Give (units): 2 201 to 250 Give (units): 4 251 to 300 Give (units): 6 301 to 350 Give (units): 8 Greater than 350 Give (units): 10 Call MD if Blood Glucose > : 350 melatonin 3 mg Tablet 6 mg PO BEDTIME PRN (Reason: insomnia) Qty: 30 0RF clonazepam 0.5 mg Tablet 0.5 mg PO TID PRN (Reason: Anxiety/Restlessness) Qty: 20 0RF amlodipine 10 mg Tablet 10 mg PO DAILY Qty: 10 0RF Protocol: Hold for SBP< HOLD for SBP < : 90 sertraline 25 mg Tablet 25 mg PO BEDTIME Qty: 30 0RF isosorbide dinitrate 10 mg Tablet 10 mg PO TID@0800,1300,1800 Qty: 90 0RF Protocol: Hold for SBP< HOLD for SBP < : 90 acetaminophen 325 mg Tablet 650 mg PO Q6H PRN (Reason: Pain, Moderate (Pain Scale 4-6) Qty: 30 0RF hydralazine 25 mg Tablet 25 mg PO TID Qty: 90 0RF Protocol: Hold for SBP< HOLD for SBP < : 90 nitroglycerin [Nitrostat] 0.4 mg Tablet, Sublingual 0.4 mg sublingual Q5MX3 PRN (Reason: Chest Pain) Qty: 30 0RF docusate sodium 100 mg Capsule 100 mg PO BID Qty: 60 0RF sennosides [Senna Lax] 8.6 mg Tablet 17.2 mg PO BID Qty: 30 0RF simethicone [Gas Relief (simethicone)] 80 mg Tablet,Chewable 80 mg PO BID PRN (Reason: gastrointestinal spasms or cramping) Qty: 30 0RF Continued cholecalciferol (vitamin D3) 25 mcg (1,000 unit) tablet 25 mcg PO DAILY Qty: 90 3RF cyanocobalamin (vitamin B-12) [Vitamin B-12] 1,000 mcg tablet 1,000 mcg PO DAILY 90 Days Qty: 90 2RF simvastatin 40 mg tablet 40 mg PO DAILY 90 Days Qty: 90 2RF folic acid 1 mg tablet 1 mg PO DAILY Qty: 90 3RF Discontinued (DME) lancets [FreeStyle Lancets] 28 gauge misc See Rx Instructions .ROUTE .MEDSUPPLY Qty: 3 3RF Rx Instructions: As directed check BS TID metformin 1,000 mg tablet 1,000 mg PO BID Qty: 180 2RF lisinopril 40 mg tablet 40 mg PO DAILY 30 Days Qty: 30 3RF Eliquis 5 mg tablet 5 mg PO BID Qty: 60 1RF sertraline 100 mg tablet 1 tab PO DAILY Cholestyramine Light 4 gram powder 1 ea PO BID glipizide 5 mg tablet 1 tab PO DAILY diclofenac sodium [Voltaren Arthritis Pain] 1 % gel 4 g topical QID PRN (Reason: Pain) Rx Instructions: apply to single knee, ankle, foot; for foot includes sole/toes/top of foot clonazepam [Klonopin] 1 mg tablet 1 mg PO BID metoprolol succinate 25 mg tablet extended release 24 hr 25 mg PO DAILY Qty: 30 3RF hydroxyzine HCl 25 mg tablet 25 mg PO BID PRN (Reason: Anxiety) Discharge Orders: Discharge Order (Routine); Ordered 07/15/22 Ordered By: Nelly Dowling Diet: Diabetic diet Activity on Discharge: As tolerated Stand Alone Forms: Patient Portal Discharge page Care Plan Goals: Acute kidney injury now hemodialysis dependent continue hemodialysis Wednesdays and Fridays Acute ND continue all medications as prescribed beta-blockers held due to bradycardia, follow LFTs in 2-3 weeks since started back on Zocor, follow-up with Cardiology Continue stool softeners and hold for diarrhea Diabetes mellitus started on Lantus and insulin sliding scale monitor blood sugar q.i.d. Health Concerns: Dressing order Silver alginate to left elbow, left foot, left hip and coccyx wounds with gauze and non stick dressing Plan of Treatment: Follow-up with primary care physician call for appointment, follow up with Nephrology continue hemodialysis Monday and Monday, return to hospital with symptoms of chest pain shortness of breath. Assessment: As above
[2022-07-15] MEDS: Insulin Lispro 100 UNIT/ML 3 ML VIAL SUBCUT ×2 (13:50→17:18)
[2022-07-15 14:02] LABS: COVID-19 Test Negative (Negative); IDNOW Serial# BCCEAD1C
--- NOTE | 2022-07-15 14:04 | MHC.CM.PN ---
IMM 07/15/22 Patient is discharged today. She will transfer to [facility] via [facility]
[2022-07-15 14:41] VITALS: BP 134/67; PULSE 70; RESP 18; TEMP 36.2; O2SAT 95
[2022-07-15 15:35] LABS: Glucose, Whole Blood 197 mg/dL (60-115)
== END 2022-07-15 18:18 | disposition skilled nursing facility (03) | DRG 673 ==
LOC: HO.ED 15:53 → HO.EDOVER 16:08 → HO.ICU 16:11 → HO.IMC 07-02 13:30
PROVIDERS: Family Medicine; Hospitalist; Internal Medicine Hypertension Specialist; Nurse Practitioner Acute Care; Radiology Diagnostic Radiology; Registered Nurse Community Health; Surgery; Admitting Provider Internal Medicine Pulmonary Disease; Emergency Provider Emergency Medicine Emergency Medical Services; PCP Internal Medicine; Visit Provider Hospitalist
PROC: 0JH63XZ Insertion of Tunneled Vascular Access Device into Chest Subcutaneous Tissue and Fascia, Percutaneous Approach (ICD-10-PCS; principal; 2022-07-12 13:30)
DX: N17.0 Acute kidney failure with tubular necrosis (principal); I21.4 Non-ST elevation (NSTEMI) myocardial infarction; J69.0 Pneumonitis due to inhalation of food and vomit; J96.01 Acute respiratory failure with hypoxia; M62.82 Rhabdomyolysis; I48.92 Unspecified atrial flutter; I47.21 Torsades de pointes; F05 Delirium due to known physiological condition; E87.1 Hypo-osmolality and hyponatremia; I51.81 Takotsubo syndrome; E87.21 Acute metabolic acidosis; K56.7 Ileus, unspecified; I44.7 Left bundle-branch block, unspecified; E78.00 Pure hypercholesterolemia, unspecified; I25.10 Atherosclerotic heart disease of native coronary artery without angina pectoris; I10 Essential (primary) hypertension; E86.1 Hypovolemia; I95.9 Hypotension, unspecified; N14.11 Contrast-induced nephropathy; E11.65 Type 2 diabetes mellitus with hyperglycemia; T50.8X5A Adverse effect of diagnostic agents, initial encounter; F43.21 Adjustment disorder with depressed mood; S70.212A Abrasion, left hip, initial encounter; S30.810A Abrasion of lower back and pelvis, initial encounter; S50.312A Abrasion of left elbow, initial encounter; R74.01 Elevation of levels of liver transaminase levels; W19.XXXA Unspecified fall, initial encounter; Z20.822 Contact with and (suspected) exposure to COVID-19; Z99.2 Dependence on renal dialysis; Z86.73 Personal history of transient ischemic attack (TIA), and cerebral infarction without residual deficits; Z87.891 Personal history of nicotine dependence; Z79.01 Long term (current) use of anticoagulants; Z79.4 Long term (current) use of insulin; Z79.899 Other long term (current) drug therapy
CPT/HCPCS: 0241U; 36415; 36581; 36600; 70450; 71045; 71250; 72125; 73502; 74018; 74176; 78452; 80048; 80053; 80307; 80320; 81001; 82009; 82010; 82040; 82077; 82550; 82693; 82803; 82947; 83036; 83605; 83690; 83735; 83930; 84100; 84484; 85007; 85025; 85027; 85610; 85730; 86704; 86706; 86850; 86900; 86901; 87040; 87086; 87340; 87635; 90935; 90999; 93005; 93017; 93306; 93308; 94002; 94003; 97110; 97116; 97162; 97166; 97530; 97535; 99153; 99285; A9500; C1751; C1758; C1769; J0283; J1265; J1643; J2250; J2270; J2543; J2785; J3010; J3475; P9047; Q9957

== ENCOUNTER 2022-07-18 06:53 | Outpatient (REF) | payer MEDICARE, SELFPAY ==
[2022-07-18 06:56] LABS: MANUAL DIFF FLAG NO
[2022-07-18 07:48] LABS: Basophils Absolute Auto 0.1 X10*3/uL (0.0-0.2); Basophils Percent Auto 0.8 % (0-2); Eosinophils Absolute Auto 0.3 X10*3/uL (0.0-0.4); Eosinophils Percent Auto 3.5 % (0-4); Hematocrit 25.5 % (37.0-47.0); Hemoglobin 8.4 g/dl (12.0-16.0); Imm Gran Abs Auto 0.07 X10*3/uL (0.00-0.03); Imm Gran Pct Auto 0.7 % (0.0-0.4); Lymphocytes Absolute Auto 1.8 X10*3/uL (1.2-4.9); Lymphocytes Percent Auto 18.5 % (20-40); Mean Corpuscular HGB Conc 32.9 g/dl (31.0-35.0); Mean Corpuscular Hemoglobin 28.2 pg (27.0-33.0); Mean Corpuscular Volume 85.6 fL (80.0-98.0); Mean Platelet Volume 9.9 fL (9.4-12.3); Monocytes Absolute Auto 0.6 X10*3/uL (0.1-1.2); Monocytes Percent Auto 6.4 % (2-11); Neutrophils Absolute Auto 6.6 x10*3/uL (2.0-8.3); Neutrophils Percent Auto 70.1 % (45-73); Platelet Count 325 X10*3/uL (160-400); Red Blood Count 2.98 X10*6/uL (4.20-5.50); Red Cell Distribution Width 14.1 % (11.0-16.0); White Blood Count 9.5 X10*3/uL (4.8-10.8)
[2022-07-18 08:21] LABS: Alanine Aminotransferase 11 U/L (0-31); Albumin Level 2.9 g/dL (3.5-5.0); Alkaline Phosphatase 68 U/L (39-117); Anion Gap 21 (12-20); Aspartate Amino Transferase 23 U/L (5-31); Bilirubin Total 0.5 mg/dL (0.0-1.0); Blood Urea Nitrogen 70 mg/dL (9-16); Calcium 8.3 mg/dL (8.4-10.2); Carbon Dioxide 17 mmol/L (22-29); Chloride 102 mmol/L (96-108); Estimated Glomerular Filt Rate 8; Glucose Random 102 mg/dL (60-115); Potassium 4.8 mmol/L (3.3-5.1); Sodium 135 mmol/L (135-145); Total Protein 5.1 g/dL (6.5-8.0)
== END 2022-07-18 06:54 | disposition home or self-care (01) ==
LOC: HO.MMNH2L 06:53
PROVIDERS: Visit Provider Family Medicine
DX: N18.6 End stage renal disease (principal)
CPT/HCPCS: 36415; 80053; 85025

== ENCOUNTER 2022-07-25 07:23 | Outpatient (REF) | payer MEDICARE, SELFPAY ==
[2022-07-25 06:36] LABS: MANUAL DIFF FLAG NO
[2022-07-25 07:04] LABS: Basophils Absolute Auto 0.1 X10*3/uL (0.0-0.2); Basophils Percent Auto 0.9 % (0-2); Eosinophils Absolute Auto 0.4 X10*3/uL (0.0-0.4); Eosinophils Percent Auto 5.7 % (0-4); Hematocrit 23.8 % (37.0-47.0); Hemoglobin 7.7 g/dl (12.0-16.0); Imm Gran Abs Auto 0.06 X10*3/uL (0.00-0.03); Imm Gran Pct Auto 0.9 % (0.0-0.4); Lymphocytes Percent Auto 28.4 % (20-40); Mean Corpuscular HGB Conc 32.4 g/dl (31.0-35.0); Mean Corpuscular Volume 86.5 fL (80.0-98.0); Mean Platelet Volume 9.9 fL (9.4-12.3); Monocytes Absolute Auto 0.5 X10*3/uL (0.1-1.2); Neutrophils Percent Auto 57.1 % (45-73); Platelet Count 321 X10*3/uL (160-400); Red Blood Count 2.75 X10*6/uL (4.20-5.50); Red Cell Distribution Width 14.2 % (11.0-16.0)
[2022-07-25 07:34] LABS: Anion Gap 13 (12-20); Blood Urea Nitrogen 26 mg/dL (9-16); Calcium 8.3 mg/dL (8.4-10.2); Carbon Dioxide 25 mmol/L (22-29); Chloride 104 mmol/L (96-108); Estimated Glomerular Filt Rate 32; Glucose Random 97 mg/dL (60-115); Potassium 3.2 mmol/L (3.3-5.1); Sodium 139 mmol/L (135-145)
== END 2022-07-25 07:24 | disposition home or self-care (01) ==
LOC: HO.MMNH1L 07:23
PROVIDERS: Visit Provider Family Medicine
DX: N18.6 End stage renal disease (principal)
CPT/HCPCS: 36415; 80048; 85025

== ENCOUNTER 2022-09-23 19:16 | Inpatient (IN) | payer MEDICARE, SELFPAY ==
--- NOTE | 2022-09-23 | ECG_ITS ---
Test Reason : CHEST PAIN Blood Pressure : / mmHG Vent. 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
--- NOTE | ~2022-09-23 | CT_ITS ---
EXAMINATION: CT HEAD WITHOUT CONTRAST CT CERVICAL SPINE WITHOUT CONTRAST CLINICAL INFORMATION: Trauma. COMPARISON: CT head and cervical spine 06/28/2022. TECHNIQUE: Contiguous axial imaging was performed from the skull base to vertex without intravenous administration of contrast. Contiguous axial imaging was performed from the upper chest through the skull base without intravenous administration of contrast. Coronal and sagittal reformats were obtained at the acquisition workstation. This CT examination was performed using dose optimization techniques as appropriate, variously including the following: *Automated exposure control *Adjustment of mA and/or kV according to patient size (this includes techniques or standardized protocols for targeted exams where dose is matched to indication/reason for exam; i.e. extremities or head) *Use of iterative reconstruction technique DLP: 607 and 371 mGy-cm FINDINGS: Head: Chronic encephalomalacia/gliosis adjacent to the right frontal horn (3:46). Chronic bilateral lacunar infarctions in the basal ganglia. There is no evidence of acute intracranial hemorrhage or edematous territorial infarction. Scattered hypoattenuation in the periventricular and deep white matter are consistent with moderate microangiopathy. Ty-white matter differentiation is preserved. Proportional prominence of the ventricles and sulcal spaces. No evidence for obstructive hydrocephalus. No abnormal mass effect or midline shift. No extra-axial fluid collections. No acute soft tissue or osseous abnormalities. The mastoid air cells and paranasal sinuses are clear. Cervical Spine: Evaluation is limited by motion. The atlantooccipital and atlantoaxial articulations remain well aligned. Straightening of the normal cervical lordosis. Otherwise, there is anatomic alignment of the vertebral bodies and posterior elements. No evidence of acute fracture or subluxation. Multilevel cervical spondylosis causing various degrees of neural foraminal encroachment and central canal stenosis. There is no prevertebral soft tissue swelling. The thyroid gland and remaining cervical soft tissues are normal in appearance. Limited evaluation of the upper lungs due to motion with emphysematous changes. CT/CT cervical spine wo IV con IMPRESSION: 1. No acute intracranial pathology. 2. Chronic encephalomalacia/gliosis adjacent to the right frontal horn. Chronic bilateral lacunar infarctions in the basal ganglia. 3. Nonspecific straightening of the cervical lordosis with moderate to severe multifocal cervical spondylosis. No acute compression deformity or evidence of traumatic subluxation.
--- NOTE | ~2022-09-23 | XR_ITS ---
EXAMINATION: XR CHEST CLINICAL INFORMATION: Weakness. COMPARISON: Chest radiograph 07/11/2022. TECHNIQUE: Frontal view of the chest was obtained. FINDINGS: Stable appearance of the cardiomediastinal silhouette. Right IJ large bore central venous catheter with the tip projecting over the superior cavoatrial junction. Increased central vasculature congestion and diffuse reticulation suggesting pulmonary edema. No pleural effusion or pneumothorax. No displaced rib fractures. XR/XR chest 1V IMPRESSION: 1. Findings most suggestive of pulmonary edema. 2. No pleural effusion or pneumothorax. 3. No displaced rib fractures.
--- NOTE | ~2022-09-23 | XR_ITS ---
X-ray bilateral knees CLINICAL HISTORY: Pain. COMPARISON: 02/20/2019. TECHNIQUE: 3 views of each knee. FINDINGS: Right knee: No acute fractures or subluxation. Moderate joint space narrowing and subcortical sclerosis of the medial and patellofemoral compartments. Tricompartmental marginal osteophytes. Small joint effusion. Scattered vascular calcifications. Left knee: No acute fracture or subluxation. Moderate joint space narrowing and subcortical cirrhosis of the medial and patellofemoral compartments with marginal osteophytes. No joint effusion. Scattered vascular calcifications. XR/XR knee LT 3V IMPRESSION: 1. No acute fractures or subluxation. 2. Moderate degenerative osteoarthritis of the medial and patellofemoral compartments of both knees, slightly greater on the left knee. 3. Small right-sided joint effusion.
--- NOTE | ~2022-09-23 | CT_ITS ---
EXAMINATION: CT ABDOMEN AND PELVIS WITH CONTRAST CLINICAL INFORMATION: Vomiting, elevated white blood cell count. COMPARISON: CT abdomen/pelvis 07/11/2022. TECHNIQUE: Multidetector volumetric images were obtained from the superior aspect of the liver through the pubic symphysis following administration 85 mL of Omnipaque 350 intravenous contrast. Sagittal and coronal reformatted images were obtained on the technologist's workstation. Oral contrast: No This CT examination was performed using dose optimization techniques as appropriate, variously including the following: *Automated exposure control *Adjustment of mA and/or kV according to patient size (this includes techniques or standardized protocols for targeted exams where dose is matched to indication/reason for exam; i.e. extremities or head) *Use of iterative reconstruction technique DLP: 528 mGy-cm FINDINGS: LUNG BASES: No focal consolidation or pleural effusion. LIVER, GALLBLADDER, AND BILIARY TREE: Mild hepatomegaly with decreased attenuation of the parenchyma suggesting hepatic steatosis. Stable calcifications along the periphery of the right hepatic lobe. No new focal liver lesion. Cholecystectomy. Unchanged mild dilatation of the common bile duct. No intrahepatic biliary ductal dilatation. PANCREAS: Atrophic. No peripancreatic free fluid or fat stranding. SPLEEN: Unchanged mild splenomegaly. ADRENAL GLANDS: No adrenal mass. KIDNEYS AND URETERS: Redemonstration of clustered of cysts in the mid to lower right kidney, one of which demonstrates multiple septations with associated calcifications measuring approximately 3.2 cm (3:40). Simple cysts in the left kidney, for which no imaging follow-up is indicated. No hydronephrosis or significant perinephric fat stranding. BLADDER: Unremarkable. GASTROINTESTINAL TRACT: Small hiatal hernia. The stomach and the small bowel are nondilated. Mild wall thickening of the descending colon with no significant associated pericolonic inflammatory changes. Query additional area of wall thickening in the mid transverse colon (4:298). No evidence of bowel obstruction. Large stool content in the rectum. ABDOMINAL WALL: Depending anasarca. No significant hernia. LYMPH NODES: No lymphadenopathy. VASCULAR: Extensive atherosclerotic disease. No aneurysm. PELVIC VISCERA: Enlarged uterus with redemonstration of multiple masses, many of which are calcified. The endometrial cavity is not well seen. No adnexal mass. No free fluid. OSSEOUS STRUCTURES: Stable compression deformity in the superior endplate of T12. Multilevel degenerative changes of the spine. Left-sided hip arthroplasty. CT/CT abdomen pelvis w IV con IMPRESSION: 1. Mild wall thickening of the descending colon, most suggestive of acute colitis, less likely diverticulitis in view of the long segment of involvement. Possible additional area of short segment of wall thickening in the mid transverse colon, suboptimally assessed due to underdistention, if not recently obtained correlation with colonoscopy is recommended to ensure the absence of underlying mass. 2. Large stool burden in the rectum suggesting constipation. 3. Redemonstration of cluster of septated cysts in the right kidney, one of which demonstrates multiple internal septations with coarse calcifications; recommend further evaluation with a dynamic abdominal MRI with and without IV contrast renal mass protocol to better distinguishing in between a Bosniak 2F versus 3 cystic mass. 4. Enlarged uterus with multiple masses, many of which are calcified, statistically favored to represent fibroids. The endometrial cavity is not well seen in this examination. If indicated, correlation with a pelvic ultrasound could be obtained. 5. Mild hepatosplenomegaly with hepatic steatosis, unchanged.
--- NOTE | ~2022-09-23 | XR_ITS ---
X-ray bilateral knees CLINICAL HISTORY: Pain. COMPARISON: 02/20/2019. TECHNIQUE: 3 views of each knee. FINDINGS: Right knee: No acute fractures or subluxation. Moderate joint space narrowing and subcortical sclerosis of the medial and patellofemoral compartments. Tricompartmental marginal osteophytes. Small joint effusion. Scattered vascular calcifications. Left knee: No acute fracture or subluxation. Moderate joint space narrowing and subcortical cirrhosis of the medial and patellofemoral compartments with marginal osteophytes. No joint effusion. Scattered vascular calcifications. XR/XR knee RT 3V IMPRESSION: 1. No acute fractures or subluxation. 2. Moderate degenerative osteoarthritis of the medial and patellofemoral compartments of both knees, slightly greater on the left knee. 3. Small right-sided joint effusion.
--- NOTE | ~2022-09-23 | XR_ITS ---
EXAMINATION: XR ELBOW, LEFT CLINICAL INFORMATION: Pain. COMPARISON: None available. TECHNIQUE: AP, lateral, and oblique views of the left elbow. FINDINGS: No acute fractures or subluxation. No joint effusion. No unexpected radiopaque foreign bodies. XR/XR elbow LT min 3V IMPRESSION: No acute fractures or subluxation.
[2022-09-23 19:28] VITALS: BP 128/68; BP 198/44; PULSE 90; PULSE 94; RESP 20; TEMP 36.8; O2SAT 95; O2SAT 97; BMI 25.8
[2022-09-23 20:12] LABS: Anion Gap 20 (12-20); Blood Urea Nitrogen 17 mg/dL (9-16); Calcium 9.3 mg/dL (8.4-10.2); Carbon Dioxide 15 mmol/L (22-29); Chloride 96 mmol/L (96-108); Creatinine Clr Calc Pharmacy 40.3; Estimated Glomerular Filt Rate 43; Glucose Random 464 mg/dL (60-115); Potassium 5.4 mmol/L (3.3-5.1); Sodium 126 mmol/L (135-145)
[2022-09-23 20:12] LABS: INTERNATIONAL NORM RATIO 1.6 (0.9-1.1); Prothrombin Time 18.3 SEC (10.0-13.1)
[2022-09-23 20:15] LABS: Partial Thromboplastin Time 35.7 SEC (26.0-36.4)
[2022-09-23 20:15] LABS: Troponin-I High Sensitivity 70.2 ng/L (<3.5-17.0)
[2022-09-23 20:17] LABS: Hematocrit 37.9 % (37.0-47.0); Hemoglobin 12.7 g/dl (12.0-16.0); Mean Corpuscular HGB Conc 33.5 g/dl (31.0-35.0); Mean Corpuscular Hemoglobin 28.8 pg (27.0-33.0); Mean Corpuscular Volume 85.9 fL (80.0-98.0); Platelet Count 246 X10*3/uL (160-400); Red Blood Count 4.41 X10*6/uL (4.20-5.50); Red Cell Distribution Width 13.6 % (11.0-16.0); White Blood Count 21.9 X10*3/uL (4.8-10.8)
--- OUTSIDE RECORDS SUMMARY | 2022-09-23 20:33 | XMS_ITS ---
Author Name Alvaro Persaud Address [address] [place] [address] Organization [facility] Address [address] [place] [address] Care Team Providers Care Senior Technical Specialist Name Role Phone Alvaro Persaud Unavailable [phone] PROBLEMS Type Condition ICD9-CM Code [id number] Code Onset Dates Condition Status SNOMED Code Problem Change in bowel function R19.4 Active 24348438 Problem Diarrhea, unspecified type R19.7 Active 15688916 Problem Encounter for screening for malignant neoplasm of colon Z12.11 Active 514117406 ALLERGIES No Known Allergies ENCOUNTERS Encounter Location Date Diagnosis [facility] [address] [place] [phone] Sep, [facility] [address] [place] [phone] Aug, [facility] [address] [place] [phone] Mar, Diarrhea, unspecified type R19.7 [facility] [address] [place] [phone] Nov, Diarrhea, unspecified type R19.7 and Change in bowel function R19.4 [facility] [address] [place] [phone] Sep, [facility] [address] [place] [phone] Jul, [facility] [address] [place] [phone] Mar, [facility] [address] [place] [address] Feb, [facility] [address] [place] [address] [place], [facility] [address] [facility] [place] [phone] Dec, [facility] [address] [place] [address] Nov, Diarrhea, unspecified type R19.7 ; Change in bowel function R19.4 and Encounter for screening for malignant neoplasm of colon Z12.11 [facility] [address] [place] [address] Nov, [facility] [address] [place] [address] October, [facility] [address] [place] [address] Sep, [facility] [place] [address] [facility] [place] [phone] May, [facility] [place] [address] [facility] [place] [phone] Nov, IMMUNIZATIONS No Known Immunizations SOCIAL HISTORY Qualifiers Date Current Smoker REASON FOR REFERRAL FUNCTIONAL STATUS PLAN OF CARE Activity Details VITAL SIGNS Weight 177 lbs 2020-04-14 Weight 170 lbs 2019-11-27 Weight 175 lbs 2016-12-08 Height 65 in 2020-04-14 Height 65 in 2019-11-27 Height 65 in 2016-12-08 BMI 29.45 kg/m2 2020-04-14 BMI 28.29 kg/m2 2019-11-27 BMI 29.12 kg/m2 2016-12-08 Heart Rate 60 /min 2016-12-08 Temperature 97.1 degrees Fahrenheit Blood pressure systolic 000 mm Hg Blood pressure diastolic 00 mm Hg 2020-03 MEDICATIONS Medication Instructions Dosage Frequency Start Date End Date Duration Status Sertraline HCl 50 MG TAKE ONE TABLET BY MOUTH EVERY DAY 30 Active Fenofibrate 160 MG TAKE 1 TABLET BY MOUTH ONCE A DAY (WITH A MEAL) 30 Active Aspirin 81 81 MG Orally Once a day 1 tablet 24h 30 day(s) Active Vitamin D3 25 MCG (1000 UT) TAKE 1 TABLET BY MOUTH ONCE A DAY.. 90 Active Cholestyramine Light 4 GM Orally Once or twice a day for diarrhea 1 scoop Sep, 30 day(s) Active metFORMIN HCl 500 MG TAKE TWO TABLETS BY MOUTH EVERY MORNING AND 1 TABLET IN THE EVENING BY MOUTH TWICE DAILY 30 Active Folic Acid 1 MG TAKE ONE TABLET BY MOUTH EVERY DAY 30 Active Dicyclomine HCl 10 MG Orally Four times a day prn abdominal discomfort/bloa ting/cramps 1-2 capsules Jan, 30 day(s) Active clonazePAM 1 MG (Schedule IV Drug) TAKE 1 TABLET BY MOUTH TWICE DAILY NEEDED FOR ANXIETY 30 Active chlorproMAZINE HCl 50 MG TAKE ONE TABLET BY MOUTH AT BEDTIME 30 Active hydrOXYzine HCl 25 MG TAKE ONE TABLET BY MOUTH TWICE A DAY NEEDED 30 Active Lisinopril 20 MG TAKE 1 TABLET BY MOUTH ONCE A DAY 30 Active Cholestyramine Light 4 GM/DOSE TAKE ONE SCOOP BY MOUTH EVERY DAY TO TWO TIMES A DAY FOR DIARRHEA (MIX IN 2 TO 4 OUNCES OF BEVERAGE BEFORE CONSUMING). 30 Active Dicyclomine HCl 10 MG Orally Four times a day prn abdominal pain/discomfort 1-2 capsules Sep, 30 day(s) Active Cholestyramine 4 GM/DOSE Orally QD-BID for diarrhea 1/2 to 1 scoop mixed in water or OJ Aug, 30 day(s) Not-[place] bishop glipiZIDE 5 MG TAKE 1 TABLET DAILY 30 Active Simvastatin 40 MG TAKE ONE TABLET BY MOUTH EVERY DAY 90 Active Dicyclomine HCl 10 MG Orally Four times a day prn abdominal cramps/discomfo rt/bloating 1-2 capsules Feb, 30 day(s) Active PROCEDURES Procedure Date Ordered Result Body Site BP SCR PRFRM RCMDD DEFIND SCR INTVL Apr 14, 2020 TOBACCO NON-USER Apr 14, 2020 DOC MEDS VERIFIED W/PT OR RE Apr 14, 2020 COLORECTAL CA SCREEN DOC REV Apr 14, 2020 PRES/ABSN URINE INCON ASSESS Apr 14, 2020 TV 21+ Minutes November 27, 2019 RESULTS Name Result Date Reference Range GI BIOPSY 2017-01-02 G.I. BIOPSY T4 (THYROXINE) 2016-12-08 T4 3.8 4.5-12.0 TSH (THYROID STIMULATING HORMONE) 2016-11 TSH 1.97 0.32-4.0 CBC with MANUAL DIFFERENTIAL 2016-12-08 WBC 8.6 4.8-10.8 ABSOLUTE NEUTROPHIL COUNT 4.3 2. 2-7.9 RBC 4.79 4.20-5.50 HEMOGLOBIN 14.3 12.0-16.0 HEMATOCRIT 41.5 37-47 MCV 86.7 80-98 MCH 29.9 27.0-33.0 MCHC 34.4 31.0-35.0 PLATELET COUNT 305 160-400 RDW 12.7 11.0-16.0 SEGS 47 45-73 BANDS 1 3-5 LYMPHOCYTES 37 20-40 VARIANT LYMPHS 4 0-6 MONOCYTES 10 2-11 EOSINOPHILS 1 0-4 PLATELET ESTIMATE NORMAL NORMAL PLATELET MORPHOLOGY NORMAL NORMAL RBC MORPHOLOGY NORMAL NORMAL CELIAC PANEL #10 2016-12-08 IgA, SERUM 82 81-463 ANTI-GLIADIN AB - IGA 3 <20 ANTI-GLIADIN AB - IGG 4 <20 TRANSGLUTAMINASE AB IGA 1 <4 TRANSGLUTAMINASE AB IGG 1 <6 REASON FOR VISIT refill Cholestyramine , refill: Cholestyramine , PATIENT PRESENTS TODAY FOR diarrhea, PATIENT PRESENTS TODAY FOR diarrhea, needs r/f on dicyclomine, still having diarrhea, refill on medication, INCREASED DICYCLOMINE, abd pain,diarrhea,food not digesting, screening colonoscopy, diarrhea, diarrhea, Dr Pavon would like sooner appt, diarrhea, PRE-COLON Insurance Providers Health Insurance Type Health Plan Insurance Address Health Plan Insurance Phone Health Plan Insurance Name Health Plan Coverage Dates Member ID Patient Relationship to Subscriber Patient Address Patient Phone Patient Name Patient Date of Subscriber ID Subscriber Name Subscriber Date of Group [facility] [address] [place] [phone] [place] [address] teresa Baugh [id number]
[2022-09-23] MEDS: 0.9 % Sodium Chloride 1,000 ML 999 ML IV (20:37)
--- NOTE | 2022-09-23 20:39 | ED.GENADULT ---
HPI - General Adult General Chief complaint: Fall Stated complaint: FALLS Time Seen by Provider: 09/23/22 19:45 Source: patient, EMS, RN notes reviewed and old records reviewed Mode of arrival: EMS Limitations: no limitations History of Present Illness HPI narrative: 77-year-old female with past medical history significant for diabetes, atrial flutter on Eliquis, hypertension, CVA, coronary artery disease, hyperlipidemia who presents to the ER for evaluation of multiple falls. Patient reports that she fell out of bed twice today, once at 6:00 a.m. and again around noon. She denies any prolonged period of lying on the ground. Patient denies any injuries She states that she has chronic bilateral knee pain which is unchanged. Per nursing notes, the patient reports to feeling increased weakness for the last 3 weeks Denies any fevers, chills, cough, abdominal pain, nausea vomiting, urinary complaints Of note, the patient a very complicated hospital admission at this facility in June of this year for JHONNY, rhabdomyolysis and a subsequent MA Related Data Home Medications Medication Instructions Recorded Confirmed metformin 1,000 mg tablet 1,000 mg PO BIDWMEAL 08/05/22 08/05/22 Previous Rx's Medication Instructions Recorded cyanocobalamin (vitamin B-12) 1,000 mcg PO DAILY 90 days #90 caps 07/15/21 1,000 mcg tablet (Vitamin B-12) simvastatin 40 mg tablet 40 mg PO DAILY 90 days #90 tabs 06/06/22 acetaminophen 325 mg tablet 650 mg PO Q6H PRN Pain, Moderate 07/15/22 (Pain Scale 4-6 #30 tabs amlodipine 10 mg tablet 10 mg PO DAILY #10 tabs 07/15/22 clonazepam 0.5 mg tablet 0.5 mg PO TID PRN 07/15/22 Anxiety/Restlessness #20 tabs clopidogrel 75 mg tablet 75 mg PO DAILY #30 tabs 07/15/22 hydralazine 25 mg tablet 25 mg PO TID #90 tabs 07/15/22 isosorbide dinitrate 10 mg tablet 10 mg PO TID@0800,1300,1800 #90 07/15/22 tabs melatonin 3 mg tablet 6 mg PO BEDTIME PRN insomnia #30 07/15/22 tabs nitroglycerin 0.4 mg sublingual 0.4 mg sublingual [id number] PRN Chest 07/15/22 tablet (Nitrostat) Pain #30 tabs sennosides 8.6 mg tablet (Senna 17.2 mg PO BID #30 tabs 07/15/22 Lax) sertraline 25 mg tablet 25 mg PO BEDTIME #30 tabs 07/15/22 simethicone 80 mg chewable tablet 80 mg PO BID PRN gastrointestinal 07/15/22 (Gas Relief (simethicone)) spasms or cramping #30 tabs cholecalciferol (vitamin D3) 25 25 mcg PO DAILY #90 caps 08/03/22 mcg (1,000 unit) tablet apixaban 2.5 mg tablet (Eliquis) 2.5 mg PO BID 90 days #180 tabs 08/23/22 folic acid 1 mg tablet 1 mg PO DAILY #90 tabs 09/05/22 lancets 28 gauge (FreeStyle #100 ea 09/12/22 Lancets) Allergies Allergy/AdvReac Type Severity Reaction Status Date / Time No Known Allergies Allergy Verified 08/05/22 12:37 [No Known Allergies*] Review of Systems Constitutional: Constitutional: Reports as per HPI, Denies chills, Denies fever(s) and Denies headache(s) ENT: Denies headache(s) Cardiovascular: Cardiovascular: Denies chest pain and Denies dyspnea Respiratory: Respiratory: Denies cough and Denies dyspnea Gastrointestinal: Gastrointestinal: Denies abdominal pain, Denies constipation and Denies vomiting Genitourinary: Genitourinary: Denies dysuria Musculoskeletal: Musculoskeletal: Reports arthralgias and Reports joint swelling Neurologic: Denies headache(s) and Denies focal weakness [facility] Past Medical History Medical History (Updated 09/24/22 @ 02:47 by Juancarlos Hill) Adjustment disorder with depressed mood Annual physical exam Annual physical exam Atherosclerotic cardiovascular disease Atrial flutter Frequency of micturition Generalized anxiety disorder History of CVA (cerebrovascular accident) Hypercholesterolemia Hypertension Hyponatremia Impacted cerumen of both ears Insomnia Obesity (BMI 30.0-34.9) Osteoarthrosis Overweight (BMI 25.0-29.9) Preop exam for internal medicine Preoperative cardiovascular examination Primary osteoarthritis of left knee Second degree AV block Tobacco abuse Type 2 diabetes mellitus with hyperglycemia Surgical History H/O breast reconstruction History of cholecystectomy History of hip replacement History of tonsillectomy Family History Family History Father Cancer Mother Medical history unknown Brother Liver cancer Sister Hypertension COPD (chronic obstructive pulmonary disease) Social History Social History Household Members: Significant Other Housing: Apartment Do you presently have visiting nurse or other home services: No Alcohol intake: never Patient Tobacco Use Status: Former Tobacco user Tobacco use type: Cigarette Cigarettes Per Day: 2 Smoked in Last 30 Days: No e-Cigarette/Vaping Use: Never Used Second Hand Smoke Exposure: No Use of substances other than those prescribed or required for medical reasons: No Advance Directives: No Advance Directives Information Provided: No service: No Current occupational status: retired Current occupation: Right Handed Cognitive needs: No Hearing needs: No Vision needs: Yes Physical Exam ED Vital Signs: Vital Signs - 24 hr 09/23/22 19:28 09/23/22 22:01 09/23/22 23:42 Temperature 98.2 F 98 F 99.9 F Pulse Rate 94 90 93 Respiratory Rate 20 18 18 Blood Pressure 198/44 H 137/59 L 180/68 H Pulse Oximetry 95 97 94 Oxygen Delivery Method Room Air Room Air Room Air 09/24/22 00:41 09/24/22 02:10 Temperature 100 F 98.3 F Pulse Rate 87 73 Respiratory Rate 18 18 Blood Pressure 100/68 160/86 H Pulse Oximetry 94 97 Oxygen Delivery Method Room Air Room Air BMI result Body Mass Index 25.8 Const General: healthy appearing, comfortable, no acute distress, alert and awake Nutritional Appearance: well nourished Orientation/consciousness: patient oriented x3 HENMT Head: Yes normocephalic and Yes atraumatic Throat: Yes posterior oropharynx normal Eyes Eyelids: Yes eyelids normal Conjunctivae: conjunctivae normal Sclerae: sclerae normal Corneas: corneas normal Pupils: Equal, round and reactive pupils present EOM: EOMs intact bilaterally and Nystagmus present (left lateral nystagmus) Neck Neck: Yes full ROM Resp Effort & Inspection: normal respiratory effort, able to speak in complete sentences, no audible wheezes and not labored Auscultation: clear to auscultation bilaterally Cardio Rate: regular rate Rhythm: regular rhythm GI Inspection: No distended Palpation (GI): Soft to palpation, not firm, nontender, no guarding and not rigid Auscultation: normoactive bowel sounds Skin Other: Patient has chronic appearing wounds to the bilateral knees have scabbed over. There is also a chronic wound to the left elbow with some surrounding erythema, no increased warmth or purulence General skin exam: elasticity normal Neuro General: patient oriented x3 Cranial nerves: Yes CN's II-XII intact bilaterally, Yes Equal, round and reactive pupils present, Yes Bilaterally intact EOM present and Yes Nystagmus present (left lateral nystagmus) Cognition (Neuro): normal cognition Extrem Other: Tenderness to manipulation of the bilateral knees with mild edema. No calf tenderness or edema Course Course Course Narrative: Patient's sodium was low at 126, but corrected for her glucose is 135. Potassium is 5.4 which is likely related to hypovolemia. Patient's creatinine is actually the limits at 1.21. Troponin is elevated to 70.2 which is significantly improved from recent admission but still elevated. Will get a repeat in 3 hours. The patient denies any chest pain and her EKG is without acute findings. [place] [id number], we will look for infectious causes. The patient's chest x-ray shows findings consistent with pulmonary edema, however clinically, the patient is hypovolemic. I did add on a BNP Reevaluation(s) Reevaluation #1: Patient now the temperature of 99.9?, we will obtain blood cultures, lactic acid, treat the patient with Tylenol. I will also give CT scan of the abdomen and pelvis, as the patient vomited once which is new for the patient. I re-evaluated the patient, she denies abdominal pain reports she vomited because she was ?choking on my phlegm. ? However given the significant white count of 21.9 K, we will get a CT scan of the abdomen pelvis. Patient's troponin from 70-79, there were no EKG changes the patient does not have any chest pain. Time: 23:32 Reevaluation #2: Patient's CT scan shows findings consistent with acute colitis and constipation. The patient reports her last bowel movement was testing was normal. She reports a history of persistent diarrhea has been given medication to present loose stools. She feels as though her bowel movements have been quite regular. She denies any abdominal pain and has no abdominal tenderness on exam. No other source of infection has been found. The patient does have a right chest dialysis catheter that on inspection does not have any sterile dressing. The patient reports that the dressing ?fell off 1 week ago. She reports that the catheter is due to be removed this coming . A 3rd blood culture was drawn off this line to check for infection of the line. Time: 01:48 Reevaluation #3: I discussed with patient's daughter, Mitzi. She reports the patient lives by herself and has had numerous frequent falls in the last couple of weeks. She has no further history to add. Will discuss with hospitalist for admission. Discussed with Dr Thurman who recommends holding vancomycin unless the blood culture from the dialysis line is positive. We will give Zosyn to cover colitis and the possible UTI Time: 02:15 Additional Reevaluation(s): The patient was seen by Dr. Thurman who would like to start vancomycin as she is also concerned about line infection after evaluating the patient. This was ordered Medications Administered Discontinued Medications Generic Name Dose Route Start Last Admin Trade Name Freq PRN Reason Stop Dose Admin Acetaminophen 975 mg 09/23/22 23:33 09/23/22 23:53 Acetaminophen 325 Mg Tablet PO 09/23/22 23:34 975 mg ONCE ONE Administration Sodium Chloride 1,000 mls @ 999 mls/hr 09/23/22 20:30 09/23/22 21:14 Ns IV 09/23/22 21:30 Infused .Q1H1M MADELINE Infusion Insulin Human Regular 10 unit 09/23/22 20:46 09/23/22 21:04 Insulin Regular, Human 100 Unit/Ml 3 Ml Vial IVPUSH 09/23/22 20:47 10 unit ONCE ONE Administration Iohexol 85 ml 09/24/22 00:41 09/24/22 00:42 Iohexol 350 Mg/Ml 100 Ml Infus..Btl IV 09/24/22 00:42 85 ml ONCE ONE Administration Medical Decision Making Medical Decision Making [facility] Narrative: This is a 77-year-old female presented with weakness and frequent falls. We will work the patient up for traumatic injuries including the knees, left elbow, cervical spine and brain. Will also look for metabolic causes for increased weakness check basic labs, chest x-ray, EKG. Will also check a UA. The patient is hypertensive to 198/44 on arrival. No other significant abnormalities vital signs, she is afebrile. Differential Diagnosis Weakness UTI Sepsis Rhabdomyolysis Cardiac arrhythmia Knee fracture Knee sprain Contusion Elbow fracture Intracranial hemorrhage Cervical spine fracture JHONNY DKA Lab Data MDM Lab Attestation statement: I reviewed the patient's lab results. (See above) 09/23/22 19:46 09/23/22 19:46 Labs: Lab Results 09/23/22 09/23/22 09/23/22 Range/Units 19:46 19:46 19:46 WBC 21.9 H (4.8-10.8) X10*3/uL RBC 4.41 D (4.20-5.50) X10*6/uL Hgb 12.7 D (12.0-16.0) g/dl Hct 37.9 D (37.0-47.0) % MCV 85.9 (80.0-98.0) fL MCH 28.8 (27.0-33.0) pg MCHC 33.5 (31.0-35.0) g/dl RDW 13.6 (11.0-16.0) % Plt Count 246 (160-400) X10*3/uL MPV 10.0 (9.4-12.3) fL Absolute Nucleated RBC 0.000 (0.0-0.012) X10*3/uL Nucleated RBC % (auto) 0.0 (0.0-0.2) /100WBC PT (10.0-13.1) SEC INR (0.9-1.1) APTT (26.0-36.4) SEC Sodium 126 L (135-145) mmol/L Potassium 5.4 H D (3.3-5.1) mmol/L Chloride 96 (96-108) mmol/L Carbon Dioxide 15 L (22-29) mmol/L Anion Gap 20 (12-20) BUN 17 H (9-16) mg/dL Creatinine 1.21 (0.5-1.4) mg/dL Estim Creat Clear Calc 40.3 Estimated GFR 43 POC Glucose (60-115) mg/dL Random Glucose 464 H* (60-115) mg/dL Lactic Acid (0.5-2.0) mmol/L Lactic Acid F/U @ 2Hr (0.5-2.0) mmol/L Calcium 9.3 D (8.4-10.2) mg/dL Total Bilirubin 0.8 (0.0-1.0) mg/dL Direct Bilirubin 0.3 (0.0-0.5) mg/dL AST 20 (5-31) U/L ALT 20 (0-31) U/L Alkaline Phosphatase 70 (39-117) U/L Total Creatine Kinase 224 H (26-140) U/L Troponin I High Sens 70.2 H* D (<3.5-17.0) ng/L B-Natriuretic Peptide (<100) pg/mL Total Protein 6.6 (6.5-8.0) g/dL Albumin 4.1 (3.5-5.0) g/dL Lipase 18 (8-78) U/L Urine Color Urine Appearance Urine pH (5.0-9.0) Ur Specific [place] (1.005-1.025) Urine Protein (Neg-Trace) mg/dL Urine Glucose (UA) (Negative) mg/dL Urine Ketones (Negative) mg/dL Urine Blood (Negative) Urine Nitrite (Negative) Ur Leukocyte Esterase (Negative) Urine RBC (0-2) /HPF Urine WBC (0-5) /HPF Ur Squamous Epith Cells (0-2) /HPF Urine Bacteria (None Seen) Hyaline Casts (0-2) /LPF Influenza Type A (PCR) (Negative) Influenza Type B (PCR) (Negative) RSV RNA Qual (PCR) (Negative) SARS-CoV-2 RNA (RT-PCR) (Negative) 09/23/22 09/23/22 09/23/22 Range/Units 20:00 21:38 22:50 WBC (4.8-10.8) X10*3/uL RBC (4.20-5.50) X10*6/uL Hgb (12.0-16.0) g/dl Hct (37.0-47.0) % MCV (80.0-98.0) fL MCH (27.0-33.0) pg MCHC (31.0-35.0) g/dl RDW (11.0-16.0) % Plt Count (160-400) X10*3/uL MPV (9.4-12.3) fL Absolute Nucleated RBC (0.0-0.012) X10*3/uL Nucleated RBC % (auto) (0.0-0.2) /100WBC PT 18.3 H (10.0-13.1) SEC INR 1.6 H (0.9-1.1) APTT 35.7 D (26.0-36.4) SEC Sodium (135-145) mmol/L Potassium (3.3-5.1) mmol/L Chloride (96-108) mmol/L Carbon Dioxide (22-29) mmol/L Anion Gap (12-20) BUN (9-16) mg/dL Creatinine (0.5-1.4) mg/dL Estim Creat Clear Calc Estimated GFR POC Glucose 287 H (60-115) mg/dL Random Glucose (60-115) mg/dL Lactic Acid (0.5-2.0) mmol/L Lactic Acid F/U @ 2Hr (0.5-2.0) mmol/L Calcium (8.4-10.2) mg/dL Total Bilirubin (0.0-1.0) mg/dL Direct Bilirubin (0.0-0.5) mg/dL AST (5-31) U/L ALT (0-31) U/L Alkaline Phosphatase (39-117) U/L Total Creatine Kinase (26-140) U/L Troponin I High Sens 79.0 H* (<3.5-17.0) ng/L B-Natriuretic Peptide (<100) pg/mL Total Protein (6.5-8.0) g/dL Albumin (3.5-5.0) g/dL Lipase (8-78) U/L Urine Color Urine Appearance Urine pH (5.0-9.0) Ur Specific [place] (1.005-1.025) Urine Protein (Neg-Trace) mg/dL Urine Glucose (UA) (Negative) mg/dL Urine Ketones (Negative) mg/dL Urine Blood (Negative) Urine Nitrite (Negative) Ur Leukocyte Esterase (Negative) Urine RBC (0-2) /HPF Urine WBC (0-5) /HPF Ur Squamous Epith Cells (0-2) /HPF Urine Bacteria (None Seen) Hyaline Casts (0-2) /LPF Influenza Type A (PCR) (Negative) Influenza Type B (PCR) (Negative) RSV RNA Qual (PCR) (Negative) SARS-CoV-2 RNA (RT-PCR) (Negative) 09/23/22 09/23/22 09/23/22 Range/Units 23:34 23:38 23:39 WBC (4.8-10.8) X10*3/uL RBC (4.20-5.50) X10*6/uL Hgb (12.0-16.0) g/dl Hct (37.0-47.0) % MCV (80.0-98.0) fL MCH (27.0-33.0) pg MCHC (31.0-35.0) g/dl RDW (11.0-16.0) % Plt Count (160-400) X10*3/uL MPV (9.4-12.3) fL Absolute Nucleated RBC (0.0-0.012) X10*3/uL Nucleated RBC % (auto) (0.0-0.2) /100WBC PT (10.0-13.1) SEC INR (0.9-1.1) APTT (26.0-36.4) SEC Sodium (135-145) mmol/L Potassium (3.3-5.1) mmol/L Chloride (96-108) mmol/L Carbon Dioxide (22-29) mmol/L Anion Gap (12-20) BUN (9-16) mg/dL Creatinine (0.5-1.4) mg/dL Estim Creat Clear Calc Estimated GFR POC Glucose (60-115) mg/dL Random Glucose (60-115) mg/dL Lactic Acid 2.2 H* (0.5-2.0) mmol/L Lactic Acid F/U @ 2Hr (0.5-2.0) mmol/L Calcium (8.4-10.2) mg/dL Total Bilirubin (0.0-1.0) mg/dL Direct Bilirubin (0.0-0.5) mg/dL AST (5-31) U/L ALT (0-31) U/L Alkaline Phosphatase (39-117) U/L Total Creatine Kinase (26-140) U/L Troponin I High Sens (<3.5-17.0) ng/L B-Natriuretic Peptide (<100) pg/mL Total Protein (6.5-8.0) g/dL Albumin (3.5-5.0) g/dL Lipase (8-78) U/L Urine Color Yellow Urine Appearance Cloudy Urine pH 5.5 (5.0-9.0) Ur Specific [place] >= 1.030 H (1.005-1.025) Urine Protein 30 (1+) H (Neg-Trace) mg/dL Urine Glucose (UA) >=1000 H (Negative) mg/dL Urine Ketones 40 (Negative) mg/dL Urine Blood Trace H (Negative) Urine Nitrite Negative (Negative) Ur Leukocyte Esterase Trace H (Negative) Urine RBC 0-2 (0-2) /HPF Urine WBC 0-5 (0-5) /HPF Ur Squamous Epith Cells 0-2 (0-2) /HPF Urine Bacteria Trace (None Seen) Hyaline Casts 0-2 (0-2) /LPF Influenza Type A (PCR) NEGATIVE (Negative) Influenza Type B (PCR) NEGATIVE (Negative) RSV RNA Qual (PCR) NEGATIVE (Negative) SARS-CoV-2 RNA (RT-PCR) NEGATIVE (Negative) 09/23/22 09/24/22 09/24/22 Range/Units 23:57 00:12 01:56 WBC (4.8-10.8) X10*3/uL RBC (4.20-5.50) X10*6/uL Hgb (12.0-16.0) g/dl Hct (37.0-47.0) % MCV (80.0-98.0) fL MCH (27.0-33.0) pg MCHC (31.0-35.0) g/dl RDW (11.0-16.0) % Plt Count (160-400) X10*3/uL MPV (9.4-12.3) fL Absolute Nucleated RBC (0.0-0.012) X10*3/uL Nucleated RBC % (auto) (0.0-0.2) /100WBC PT (10.0-13.1) SEC INR (0.9-1.1) APTT (26.0-36.4) SEC Sodium (135-145) mmol/L Potassium (3.3-5.1) mmol/L Chloride (96-108) mmol/L Carbon Dioxide (22-29) mmol/L Anion Gap (12-20) BUN (9-16) mg/dL Creatinine (0.5-1.4) mg/dL Estim Creat Clear Calc Estimated GFR POC Glucose 261 H (60-115) mg/dL Random Glucose (60-115) mg/dL Lactic Acid (0.5-2.0) mmol/L Lactic Acid F/U @ 2Hr 1.4 (0.5-2.0) mmol/L Calcium (8.4-10.2) mg/dL Total Bilirubin (0.0-1.0) mg/dL Direct Bilirubin (0.0-0.5) mg/dL AST (5-31) U/L ALT (0-31) U/L Alkaline Phosphatase (39-117) U/L Total Creatine Kinase (26-140) U/L Troponin I High Sens (<3.5-17.0) ng/L B-Natriuretic Peptide 528 H (<100) pg/mL Total Protein (6.5-8.0) g/dL Albumin (3.5-5.0) g/dL Lipase (8-78) U/L Urine Color Urine Appearance Urine pH (5.0-9.0) Ur Specific [place] (1.005-1.025) Urine Protein (Neg-Trace) mg/dL Urine Glucose (UA) (Negative) mg/dL Urine Ketones (Negative) mg/dL Urine Blood (Negative) Urine Nitrite (Negative) Ur Leukocyte Esterase (Negative) Urine RBC (0-2) /HPF Urine WBC (0-5) /HPF Ur Squamous Epith Cells (0-2) /HPF Urine Bacteria (None Seen) Hyaline Casts (0-2) /LPF Influenza Type A (PCR) (Negative) Influenza Type B (PCR) (Negative) RSV RNA Qual (PCR) (Negative) SARS-CoV-2 RNA (RT-PCR) (Negative) Radiology Impression Discussion of test interpretation with radiology: I have reviewed the radiologist's reading. (Findings most consistent with pulmonary edema) Discharge Plan Discharge Clinical Impression: Weakness, Colitis Patient Disposition: Admitted As Inpatient
[2022-09-23] MEDS: Insulin Regular, Human 100 UNIT/ML 3 ML VIAL 10 UNIT IVPUSH (21:04)
[2022-09-23 21:05] LABS: Alanine Aminotransferase 20 U/L (0-31); Albumin Level 4.1 g/dL (3.5-5.0); Alkaline Phosphatase 70 U/L (39-117); Aspartate Amino Transferase 20 U/L (5-31); Bilirubin Direct 0.3 mg/dL (0.0-0.5); Bilirubin Total 0.8 mg/dL (0.0-1.0); Total Protein 6.6 g/dL (6.5-8.0)
[2022-09-23 21:28] LABS: Lipase 18 U/L (8-78)
[2022-09-23 21:42] LABS: Glucose, Whole Blood 287 mg/dL (60-115)
[2022-09-23 22:01] VITALS: BP 137/59; PULSE 90; RESP 18; TEMP 36.6; O2SAT 97
[2022-09-23 23:40] LABS: Appearance Urine Cloudy; Color Urine Yellow; Glucose Urine UA >=1000 mg/dL (Negative); Leukocyte Esterase Urine Trace (Negative); Nitrite Urine Negative (Negative); PH 5.5 (5.0-9.0); Specific Gravity - Urine >= 1.030 (1.005-1.025); UMIC TRIGGER UACC YES; Urine Blood Trace (Negative); Urine Ketones 40 mg/dL (Negative); Urine Protein 30 (1+) mg/dL (Neg-Trace)
[2022-09-23 23:42] VITALS: BP 180/68; PULSE 93; RESP 18; TEMP 37.7; O2SAT 94
[2022-09-23 23:44] LABS: Bacteria Urine Trace (None Seen); Hyaline Casts Urine 0-2 /LPF (0-2); RBC Urine 0-2 /HPF (0-2); Squamous Epithelial Cell Urine 0-2 /HPF (0-2); WBC Urine 0-5 /HPF (0-5)
[2022-09-23] MEDS: Acetaminophen 325 MG TABLET 975 MG PO (23:53)
[2022-09-24] VITALS (9 sets, daily range): BP systolic 100–160; BP diastolic 49–86; PULSE 66–91; RESP 18–21; TEMP 36.1–37.7; O2SAT 92–97; BMI 25.0
[2022-09-24 00:07] LABS: Lactic Acid 2.2 mmol/L (0.5-2.0)
[2022-09-24 00:16] LABS: Glucose, Whole Blood 261 mg/dL (60-115)
[2022-09-24 00:31] LABS: B Type Natriuretic Peptide 528 pg/mL (<100)
[2022-09-24 00:32] LABS: Influenza A PCR NEGATIVE (Negative); Influenza B PCR NEGATIVE (Negative); Resp Syncy Virus RNA Qual PCR NEGATIVE (Negative); SARS COV2 PCR INHOUSE NEGATIVE (Negative)
[2022-09-24] MEDS: iohexoL 350 MG/ML 100 ML INFUS..BTL 85 ML IV (00:42)
[2022-09-24 01:52] LABS: Reflex Lactate? Lactic Acid Added
[2022-09-24 02:19] LABS: ~Lactic Acid-LAB USE ONLY 1.4 mmol/L (0.5-2.0)
[2022-09-24] MEDS: Piperacillin Sodium/Tazobactam 3.375 GM in 0.9 % Sodium Chloride 50 ML IV ×4 (03:34→21:48)
[2022-09-24 04:58] LABS: Glucose, Whole Blood 302 mg/dL (60-115)
[2022-09-24] MEDS: Lactated Ringers 1,000 ML 100 ML IVCONT (05:02)
[2022-09-24] MEDS: vancomycin HCL 1,000 MG in 0.9 % Sodium Chloride 250 ML 270 MG IV (05:03)
[2022-09-24 06:42] LABS: MANUAL DIFF FLAG NO
[2022-09-24 06:46] LABS: Basophils Absolute Auto 0.1 X10*3/uL (0.0-0.2); Basophils Percent Auto 0.4 % (0-2); Eosinophils Absolute Auto 0.2 X10*3/uL (0.0-0.4); Hematocrit 33.1 % (37.0-47.0); Hemoglobin 11.1 g/dl (12.0-16.0); Imm Gran Abs Auto 0.09 X10*3/uL (0.00-0.03); Imm Gran Pct Auto 0.5 % (0.0-0.4); Lymphocytes Absolute Auto 1.1 X10*3/uL (1.2-4.9); Lymphocytes Percent Auto 6.5 % (20-40); Mean Corpuscular HGB Conc 33.5 g/dl (31.0-35.0); Mean Corpuscular Hemoglobin 29.2 pg (27.0-33.0); Mean Corpuscular Volume 87.1 fL (80.0-98.0); Mean Platelet Volume 9.7 fL (9.4-12.3); Monocytes Percent Auto 6.1 % (2-11); Neutrophils Absolute Auto 14.1 x10*3/uL (2.0-8.3); Neutrophils Percent Auto 85.5 % (45-73); Platelet Count 197 X10*3/uL (160-400); White Blood Count 16.5 X10*3/uL (4.8-10.8)
--- NOTE | 2022-09-24 06:46 | P.HPHOSP_ITS ---
History of Present Illness Date of Service: 09/24/22 Chief Complaint: weakness This is a 77-year-old female with past medical history of CVA, HTN, HLD, type 2 diabetes, history a flutter, presents the hospital with complaints of weakness. Patient reports that she has been progressively getting weaker over the past few weeks, she denies having any headache or change in vision, no chest pain, no abdominal pain nausea or vomiting, no diarrhea constipation, no urinary symptoms and no lower extremity edema. She denies any frequency urgency or dysuria. She just states that she has had difficulty with ambulation, had 2 falls yesterday, without loss of consciousness, no chest pain, no palpitations. She states is just generally weak with no acute complaint otherwise. Of note patient had an extensive hospital stay in June due to acute [place], JHONNY, Rhabdo, intibated and requiring HD. Patient currently has a PermCath in place because she is hemodialysis dependent. She denies any pain, or drainage from th e site of the PermCath. On arrival to the ED patient found to have temp of 99.9, blood pressure 180/68, WBC count of 16.5, hemoglobin of 11.1, hematocrit 33.1, INR of 1.6, sodium 131 corrected for hyperglycemia, potassium of 5.4, glucose of 464, lactic acid of 2.2, troponin of 70 increased to 79, BNP of 528, and UA that is positive for leukocyte Estrace and WBC as well as bacteria COVID-19 negative, Review of Systems Review of Systems: Yes all other systems are reviewed and are negative [facility] Medical History Adjustment disorder with depressed mood Annual physical exam Annual physical exam Atherosclerotic cardiovascular disease Atrial flutter Frequency of micturition Generalized anxiety disorder History of CVA (cerebrovascular accident) Hypercholesterolemia Hypertension Hyponatremia Impacted cerumen of both ears Insomnia Obesity (BMI 30.0-34.9) Osteoarthrosis Overweight (BMI 25.0-29.9) Preop exam for internal medicine Preoperative cardiovascular examination Primary osteoarthritis of left knee Second degree AV block Tobacco abuse Type 2 diabetes mellitus with hyperglycemia Family History Father Cancer Mother Medical history unknown Brother Liver cancer Sister Hypertension COPD (chronic obstructive pulmonary disease) Surgical History H/O breast reconstruction History of cholecystectomy History of hip replacement History of tonsillectomy Social History Household Members: None Housing: Apartment Do you presently have visiting nurse or other home services: No Alcohol intake: never Patient Tobacco Use Status: Former Tobacco user Quit Date: 06/2022 Tobacco use type: Cigarette Cigarettes Per Day: 2 Smoked in Last 30 Days: No e-Cigarette/Vaping Use: Never Used Patient Interested in Nicotine Replacement: No Second Hand Smoke Exposure: No Use of substances other than those prescribed or required for medical reasons: No Have you been hit, kicked, punched, or otherwise hurt by someone within the past year? If so, by whom?: No Do you feel safe in your current relationship?: No Current Relationship Is there a partner from a previous relationship who is making you feel unsafe now?: No Are you made to feel afraid or neglected: No Advance Directives: No Advance Directives Information Provided: No Do you have thoughts of harming others: None Do you have a plan to hurt others: No Plan Recently lost weight without trying: No Nutrition Risks: No Nutritional Risk Patient : No : No Poor oral hygiene: No service: No Current occupational status: retired Current occupation: Right Handed Cognitive needs: No Hearing needs: No Vision needs: Yes Meds Allergies Allergy/AdvReac Type Severity Reaction Status Date / Time No Known Allergies Allergy Verified 08/05/22 12:37 [No Known Allergies*] Active Medications: Current Medications Acetaminophen (Acetaminophen 325 Mg Tablet) 650 mg PO Q6H PRN PRN Reason: Pain, Mild (Pain Scale 1-3) Lactated Ringer's (Lr) 1,000 mls @ 100 mls/hr IVCONT .Q10H MADELINE Last Admin: 09/24/22 05:02 Dose: 100 mls/hr Vancomycin HCl 1,250 mg/ (Sodium Chloride) 250 mls @ 166.667 mls/hr IV Q12H MADELINE Piperacillin Sod/Tazobactam (Sod 3.375 gm/ Sodium Chloride) 50 mls @ 100 mls/hr IV Q6H MADELINE Ondansetron HCl (Ondansetron Hcl 4 Mg/2 Ml Vial) 4 mg IVPUSH Q8H PRN PRN Reason: Nausea and Vomiting Pharmacy Consult (Consult Rx Perform Med Rec) 1 each MISCELLANE ONCE PRN PRN Reason: Consult order Pharmacy Consult (Consult Rx Vancomycin Dosing) 1 each MISCELLANE DAILY PRN PRN Reason: Consult order Sodium Chloride (0.9 % Sodium Chloride Flush 3 Ml Syringe) [facility] Medications Medication Instructions Recorded Confirmed Last Taken Type metformin 1,000 mg tablet 1,000 mg PO BIDWMEAL 08/05/22 08/05/22 Unknown History Physical Exam Vital Signs and Narrative: Vital Signs: Last Vital Signs Temp 98 F 09/24/22 04:00 Pulse 69 09/24/22 04:00 Resp 18 09/24/22 04:00 BP 105/54 L 09/24/22 04:00 Pulse Ox 95 09/24/22 04:00 O2 Del Method Room Air 09/24/22 04:00 BMI result Body Mass Index 25.0 Const: General: cooperative and no acute distress Orientation/consciousness: patient oriented x3 Eyes: General: appearance normal, both eyes and all related structures Chest: Other: Patient has a right PermCath in place and the subclavian, the site appears erythematous, warm Resp: Effort & Inspection: normal respiratory effort Auscultation: clear to auscultation bilaterally Cardio: Rate: regular rate Rhythm: regular rhythm GI: Palpation (GI): Soft to palpation Auscultation: normal bowel sounds Skin: Other: site of the permacath on the left chest appears, warm, erythmatous General skin exam: no rashes or lesions noted Neuro: General: patient oriented x3 Cognition (Neuro): normal cognition Extrem: General: Yes normal to inspection and Yes no pedal edema Results Labs 09/23/22 19:46 09/23/22 19:46 Labs: Laboratory Results - last 24 hr 09/23/22 09/23/22 09/23/22 19:46 19:46 19:46 MCV 85.9 MCH 28.8 MCHC 33.5 RDW 13.6 Plt Count 246 MPV 10.0 Absolute Nucleated RBC 0.000 Nucleated RBC % (auto) 0.0 PT INR APTT Anion Gap 20 Estim Creat Clear Calc 40.3 Estimated GFR 43 POC Glucose Random Glucose 464 H* Lactic Acid Lactic Acid F/U @ 2Hr Calcium 9.3 D Total Bilirubin 0.8 Direct Bilirubin 0.3 AST 20 ALT 20 Alkaline Phosphatase 70 Total Creatine Kinase 224 H Troponin I High Sens 70.2 H* D B-Natriuretic Peptide Total Protein 6.6 Albumin 4.1 Lipase 18 Urine Color Urine Appearance Urine pH Ur Specific [place] Urine Protein Urine Glucose (UA) Urine Ketones Urine Blood Urine Nitrite Ur Leukocyte Esterase Urine RBC Urine WBC Ur Squamous Epith Cells Urine Bacteria Hyaline Casts Influenza Type A (PCR) Influenza Type B (PCR) RSV RNA Qual (PCR) SARS-CoV-2 RNA (RT-PCR) 09/23/22 09/23/22 09/23/22 20:00 21:38 22:50 MCV MCH MCHC RDW Plt Count MPV Absolute Nucleated RBC Nucleated RBC % (auto) PT 18.3 H INR 1.6 H APTT 35.7 D Anion Gap Estim Creat Clear Calc Estimated GFR POC Glucose 287 H Random Glucose Lactic Acid Lactic Acid F/U @ 2Hr Calcium Total Bilirubin Direct Bilirubin AST ALT Alkaline Phosphatase Total Creatine Kinase Troponin I High Sens 79.0 H* B-Natriuretic Peptide Total Protein Albumin Lipase Urine Color Urine Appearance Urine pH Ur Specific [place] Urine Protein Urine Glucose (UA) Urine Ketones Urine Blood Urine Nitrite Ur Leukocyte Esterase Urine RBC Urine WBC Ur Squamous Epith Cells Urine Bacteria Hyaline Casts Influenza Type A (PCR) Influenza Type B (PCR) RSV RNA Qual (PCR) SARS-CoV-2 RNA (RT-PCR) 09/23/22 09/23/22 09/23/22 23:34 23:38 23:39 MCV MCH MCHC RDW Plt Count MPV Absolute Nucleated RBC Nucleated RBC % (auto) PT INR APTT Anion Gap Estim Creat Clear Calc Estimated GFR POC Glucose Random Glucose Lactic Acid 2.2 H* Lactic Acid F/U @ 2Hr Calcium Total Bilirubin Direct Bilirubin AST ALT Alkaline Phosphatase Total Creatine Kinase Troponin I High Sens B-Natriuretic Peptide Total Protein Albumin Lipase Urine Color Yellow Urine Appearance Cloudy Urine pH 5.5 Ur Specific [place] >= 1.030 H Urine Protein 30 (1+) H Urine Glucose (UA) >=1000 H Urine Ketones 40 Urine Blood Trace H Urine Nitrite Negative Ur Leukocyte Esterase Trace H Urine RBC 0-2 Urine WBC 0-5 Ur Squamous Epith Cells 0-2 Urine Bacteria Trace Hyaline Casts 0-2 Influenza Type A (PCR) NEGATIVE Influenza Type B (PCR) NEGATIVE RSV RNA Qual (PCR) NEGATIVE SARS-CoV-2 RNA (RT-PCR) NEGATIVE 09/23/22 09/24/22 09/24/22 23:57 00:12 01:56 MCV MCH MCHC RDW Plt Count MPV Absolute Nucleated RBC Nucleated RBC % (auto) PT INR APTT Anion Gap Estim Creat Clear Calc Estimated GFR POC Glucose 261 H Random Glucose Lactic Acid Lactic Acid F/U @ 2Hr 1.4 Calcium Total Bilirubin Direct Bilirubin AST ALT Alkaline Phosphatase Total Creatine Kinase Troponin I High Sens B-Natriuretic Peptide 528 H Total Protein Albumin Lipase Urine Color Urine Appearance Urine pH Ur Specific [place] Urine Protein Urine Glucose (UA) Urine Ketones Urine Blood Urine Nitrite Ur Leukocyte Esterase Urine RBC Urine WBC Ur Squamous Epith Cells Urine Bacteria Hyaline Casts Influenza Type A (PCR) Influenza Type B (PCR) RSV RNA Qual (PCR) SARS-CoV-2 RNA (RT-PCR) 09/24/22 04:54 MCV MCH MCHC RDW Plt Count MPV Absolute Nucleated RBC Nucleated RBC % (auto) PT INR APTT Anion Gap Estim Creat Clear Calc Estimated GFR POC Glucose 302 H Random Glucose Lactic Acid Lactic Acid F/U @ 2Hr Calcium Total Bilirubin Direct Bilirubin AST ALT Alkaline Phosphatase Total Creatine Kinase Troponin I High Sens B-Natriuretic Peptide Total Protein Albumin Lipase Urine Color Urine Appearance Urine pH Ur Specific [place] Urine Protein Urine Glucose (UA) Urine Ketones Urine Blood Urine Nitrite Ur Leukocyte Esterase Urine RBC Urine WBC Ur Squamous Epith Cells Urine Bacteria Hyaline Casts Influenza Type A (PCR) Influenza Type B (PCR) RSV RNA Qual (PCR) SARS-CoV-2 RNA (RT-PCR) Imaging Radiologist's Impressions: Impressions Cervical Spine CT 09/23/22 20:23 IMPRESSION: 1. No acute intracranial pathology. 2. Chronic encephalomalacia/gliosis adjacent to the right frontal horn. Chronic bilateral lacunar infarctions in the basal ganglia. 3. Nonspecific straightening of the cervical lordosis with moderate to severe multifocal cervical spondylosis. No acute compression deformity or evidence of traumatic subluxation. Head CT 09/23/22 20:23 IMPRESSION: 1. No acute intracranial pathology. 2. Chronic encephalomalacia/gliosis adjacent to the right frontal horn. Chronic bilateral lacunar infarctions in the basal ganglia. 3. Nonspecific straightening of the cervical lordosis with moderate to severe multifocal cervical spondylosis. No acute compression deformity or evidence of traumatic subluxation. Chest X-Ray 09/23/22 20:25 IMPRESSION: 1. Findings most suggestive of pulmonary edema. 2. No pleural effusion or pneumothorax. 3. No displaced rib fractures. Elbow X-Ray 09/23/22 20:25 IMPRESSION: No acute fractures or subluxation. Knee X-Ray 09/23/22 20:25 IMPRESSION: 1. No acute fractures or subluxation. 2. Moderate degenerative osteoarthritis of the medial and patellofemoral compartments of both knees, slightly greater on the left knee. 3. Small right-sided joint effusion. Knee X-Ray 09/23/22 20:25 IMPRESSION: 1. No acute fractures or subluxation. 2. Moderate degenerative osteoarthritis of the medial and patellofemoral compartments of both knees, slightly greater on the left knee. 3. Small right-sided joint effusion. Abdomen/Pelvis CT 09/24/22 00:46 IMPRESSION: 1. Mild wall thickening of the descending colon, most suggestive of acute colitis, less likely diverticulitis in view of the long segment of involvement. Possible additional area of short segment of wall thickening in the mid transverse colon, suboptimally assessed due to underdistention, if not recently obtained correlation with colonoscopy is recommended to ensure the absence of underlying mass. 2. Large stool burden in the rectum suggesting constipation. 3. Redemonstration of cluster of septated cysts in the right kidney, one of which demonstrates multiple internal septations with coarse calcifications; recommend further evaluation with a dynamic abdominal MRI with and without IV contrast renal mass protocol to better distinguishing in between a Bosniak 2F versus 3 cystic mass. 4. Enlarged uterus with multiple masses, many of which are calcified, statistically favored to represent fibroids. The endometrial cavity is not well seen in this examination. If indicated, correlation with a pelvic ultrasound could be obtained. 5. Mild hepatosplenomegaly with hepatic steatosis, unchanged. Assessment and Plan (1) Leukocytosis: Status: Acute (2) Weakness: Status: Acute (3) Colitis: Status: Acute (4) UTI (urinary tract infection): Status: Acute (5) Central line infection: Status: Acute Plan 77-year-old female with past medical history that includes HTN HLD, recent MRI in June, JHONNY secondary to rhabdomyolysis in June that is now hemodialysis dependent with a PermCath in place presents to the hospital with weakness. Found to have multiple abnormalities. # leukocytosis - possibly secondary to colitis versus UTI versus multifactorial as well as evidence of PermCath site infection - will treat with IV antibiotics - follow cultures # colitis - patient has no abdominal pain, denies any nausea vomiting or diarrhea - given the leukocytosis, weakness, will treat with broad-spectrum antibiotic - folic cultures # acute UTI - given weakness and fall will treat positive UA - follow cultures # there is evidence of cellulitis surrounding the PermCath line with erythema, warmth, slightly tender - blood cultures have been drawn from the line - at this time will keep the line pending cultures - pt started on broad spectrum abx - follow cultures # HDS- Nephrology consulted # Fall - Likely multifactorial but cn be attributed to acute infections mentioned above - PT/OT eval prior to discharge # DM/Hyperglycemia - LDDSI -hold oral antihyperglyceimics - Diabetic diet # A flutter - continue eliquis # HTN - continue home antihypertensives DVT ppx: Eliquis given pt need for IV abx while further evaluation acute issues including acute leukocytosis pt will require min 2 nights inpatient hospital stay for furthe rmanagement # recent history of CAD Time Spent With Patient Time: Total time managing care of this patient today ____ minutes. Quality Stroke Does the patient have a stroke diagnosis?: No VTE Prior VTE?: No VTE Risk Level:: Medical - moderate - high VTE Device Contraindication: Treatment Not Indicated VTE Drug Contraindication: N/A - Med Ordered
[2022-09-24 07:08] LABS: Anion Gap 15 (12-20); Blood Urea Nitrogen 18 mg/dL (9-16); Calcium 8.7 mg/dL (8.4-10.2); Carbon Dioxide 17 mmol/L (22-29); Chloride 103 mmol/L (96-108); Creatinine Clr Calc Pharmacy 43.9; Estimated Glomerular Filt Rate 53; Glucose Random 293 mg/dL (60-115); Potassium 4.4 mmol/L (3.3-5.1); Sodium 131 mmol/L (135-145)
[2022-09-24 08:08] LABS: Glucose, Whole Blood 278 mg/dL (60-115)
[2022-09-24] MEDS: Insulin Lispro 100 UNIT/ML 3 ML VIAL SUBCUT ×4 (09:13→21:47)
--- NOTE | 2022-09-24 10:22 | PHA.MEDREC ---
Pharmacy Consult ? Medication Reconciliation Pharmacy has completed the medication reconciliation. The patient states they do not take several medications they were supposed to start after their discharge on 07/15/22. The patient states they do not currently take amlodipine 10mg daily, clopidogrel 75mg daily, hydralazine 25mg TID, Lantus 30 units daily, Humalog SS QID, isosorbide dinitrate 10mg TID, and Nitrostat. However, these are new medications that the patient was supposed to be discharged with by Dr. Dowling on 07/15/22. The patient's pharmacy also states that these medications were never filled. In addition, the patient states that they are currently taking medications that were supposed to be discontinued on the same date. These medications include Cholestyramine, Metformin 1g BID, and Sertraline 100mg daily. The patient's pharmacy also states that the patient had picked up a Metoprolol succinate 25mg daily prescription after the discharge date (08/12/22), but this medication was also supposed to be discontinued.
[2022-09-24 11:58] LABS: Glucose, Whole Blood 343 mg/dL (60-115)
--- NOTE | 2022-09-24 15:35 | MHC.CM.PN ---
IMM 09/24/22 DELIVERED TO BEDSIDE, EMR REVIEWED, PT ADMITTED W/SEPSIS AND INFECTED CENTRAL LINE, CM MET W/PT WHO REPORTS HER REHAB AT [facility] WENT WELL AND HER CREDIT RESOLUTION REPRESENTATIVE TOLD HER SHE DIDN'T NEED TO BE ON HD ANYMORE, PT REPORTS SHE HAS A WALKER/WC FOR DME AND HAS VNA SERVICES HOWEVER DOES NOT RECALL THE NAME OF THE COMPANY, CM HAS LEFT MESSAGE FOR [facility] AT NUMBER ON FILE W/REQUEST FOR VNA INFO, PT REPORTS SHE HAS ALSO CONTACTED [facility] AND HAS AN APPT TO BE ASSESSED FOR HOME HEALTH SERVICES, PT UNSURE OF DATE OF APPT. PT VERIFIES PCP IS CHARY WINSLOW, HCP IS [facility]TR CHERRY [phone] EXT [phone], COVID VAX X3. DISPO PENDING PT MENDYAL
[2022-09-24 17:01] LABS: Glucose, Whole Blood 363 mg/dL (60-115)
[2022-09-24 20:31] LABS: Glucose, Whole Blood 302 mg/dL (60-115)
[2022-09-24] MEDS: 0.9 % Sodium Chloride Flush 3 ML SYRINGE IVFLUSH (21:54)
[2022-09-24] MEDS: Apixaban 2.5 MG TABLET PO (22:22)
[2022-09-24] MEDS: chlorproMAZINE HCl 25 MG TABLET 50 MG PO (22:23)
[2022-09-24] MEDS: clonazePAM 1 MG TABLET PO (22:23)
[2022-09-25] MEDS: Piperacillin Sodium/Tazobactam 3.375 GM in 0.9 % Sodium Chloride 50 ML IV ×4 (03:16→20:28)
--- NOTE | 2022-09-25 03:19 | CONS_ITS ---
DATE OF SERVICE: REASON FOR CONSULTATION: Consult requested by the medical team to evaluate and help in management of patient with renal insufficiency. HISTORY OF PRESENT ILLNESS: The patient is a 77-year-old female with past medical history of CVA, history of hyperlipidemia, hypertension, type 2 diabetes. Patient presents to hospital with complaints of weakness. This has been happening for the last few weeks. She denies any chest pain, shortness of breath, abdominal pain, nausea, vomiting. There is no diarrhea. No edema. She denies any frequent urination or dysuria. She has had difficulty in ambulating. She has had extensive history in June when she was in the hospital with acute kidney injury, AKA, rhabdo, and intubated requiring hemodialysis. She did have a PermCath placed and was on hemodialysis at [facility]. Apparently, the PermCath dialysis was stopped. In the ER, patient was febrile and uncontrolled hypertension. BUN and creatinine were acceptable around 18 and 1.21. When she was discharged, her creatinine was 5.09. There was redness around the PermCath site, but there was no discharge or pain. REVIEW OF SYSTEMS: As noted above. Other systems were reviewed, negative. PAST MEDICAL HISTORY: CVA, history of anxiety disorder, depression, history of coronary artery disease, hypercholesterolemia, hypertension, hyponatremia, insomnia, obesity, osteoarthritis, second-degree AV block, tobacco abuse, type 2 diabetes mellitus, chronic kidney disease at baseline. FAMILY HISTORY: Patient's father had cancer, the exact cancer is unknown. Brother had liver disease. PAST SURGICAL HISTORY: History of breast reconstruction, cholecystectomy, hip replacement, tonsillectomy. SOCIAL HISTORY: Patient does not drink alcohol. Was a former smoker, quit in June 2022. Does not use drugs at the present time. ALLERGIES: PATIENT HAS NO KNOWN DRUG ALLERGIES. HOME MEDICATIONS: Include metformin and other medications are unknown. PHYSICAL EXAMINATION: GENERAL: Patient is resting in the bed. Awake, alert, comfortable. VITAL SIGNS: Blood pressure was 105/54, pulse 69, afebrile. HEENT: Shows pupils equal bilaterally. No jugular venous distention noted. Mucosa dry. There is no scleral icterus or conjunctival congestion. There was redness around the PermCath site. There was no discharge. No tenderness. NECK: Supple. No thyromegaly is noted. CARDIOVASCULAR SYSTEM: S1, S2 without rub or murmur. RESPIRATORY: Decreased in bases. No crepitation or rhonchi noted. ABDOMEN: Soft, nontender. No guarding noted. Bowel sounds normal. EXTREMITIES: Showed no edema. There is no peripheral cyanosis or clubbing. LABORATORY DATA: Done today WBC 16.5, hemoglobin 11.1, hematocrit 33.1, platelets 197, Polys 85.5, lymphocytes 6.5. INR 1.6, PTT 35.7. Sodium 131, potassium 4.4, chloride 103, CO2 of 17, anion gap 15, BUN 18, creatinine 1.02, estimated GFR was 53, glucose 302, calcium 8.7. Urine studies were reviewed. IMPRESSION: 1. A 77-year-old female with acute kidney injury in the setting of acute tubular necrosis/rhabdomyolysis/pigment nephropathy, which is improved. She is off dialysis at the present time. 2. Chronic kidney disease stage 3 at baseline in setting of longstanding hypertension and DM in the setting of acute kidney injury. 3. Leukocytosis with fever, likely due to PermCath related infection. 4. Colitis. 5. Type 2 diabetes mellitus. RECOMMENDATION: At this juncture, the patient's volume status is acceptable. She does not require renal replacement therapy and her renal function is acceptable. There is no need for the PermCath at this juncture, and I have advised medical team to get Interventional Radiology or Surgery to remove the PermCath as soon as possible. I agree with the following with blood cultures results and continue vancomycin for now. Follow vancomycin level. We should avoid using nephrotoxic agents on this patient. The patient has mild hyperkalemia and I have given a dose of Lokelma 10 g. The patient also has metabolic acidosis and I will initiate the patient on sodium bicarbonate 650 mg p.o. b.i.d. Once bicarb improves to above 22, we can discontinue this medication. Thank you for allowing me to participate in medical management MD DANIELLE Alvarado/RACQUEL / [phone] MTDLonnie
[2022-09-25 04:00] VITALS: BP 124/58; PULSE 88; RESP 18; TEMP 36.7; O2SAT 93
[2022-09-25 08:00] VITALS: BP 133/63; PULSE 84; RESP 20; TEMP 37.1; O2SAT 94
[2022-09-25] MEDS: Cholestyramine (With Sugar) 4 GM POWD.PACK PO (08:43)
[2022-09-25] MEDS: Insulin Lispro 100 UNIT/ML 3 ML VIAL SUBCUT ×4 (08:43→20:28)
[2022-09-25] MEDS: Folic Acid 1 MG TABLET PO (08:44)
[2022-09-25] MEDS: Insulin Glargine,Hum.rec.anlog 100 UNIT/ML 10 ML VIAL 8 UNIT SUBCUT (08:44)
[2022-09-25] MEDS: Apixaban 2.5 MG TABLET PO ×2 (08:44→20:28)
[2022-09-25] MEDS: clonazePAM 1 MG TABLET PO ×2 (08:44→20:28)
[2022-09-25] MEDS: Atorvastatin Calcium 20 MG TABLET PO (08:44)
[2022-09-25] MEDS: Sertraline HCL 100 MG TABLET PO (08:44)
[2022-09-25] MEDS: Cyanocobalamin (Vitamin B-12) 1,000 MCG TABLET 1000 MCG PO (08:44)
[2022-09-25] MEDS: 0.9 % Sodium Chloride Flush 3 ML SYRINGE IVFLUSH ×2 (08:45→17:38)
[2022-09-25 08:55] LABS: Glucose, Whole Blood 248 mg/dL (60-115)
--- NOTE | 2022-09-25 10:58 | P.CONGS_ITS ---
History of Present Illness Consult details Consult date: 09/25/22 Narrative: The chart was reviewed and patient evaluated. Consult for removal of hemodialysis PermCath because of bacteremia / infection From the catheter. [facility] Past Medical History Medical History Adjustment disorder with depressed mood Annual physical exam Annual physical exam Atherosclerotic cardiovascular disease Atrial flutter Frequency of micturition Generalized anxiety disorder History of CVA (cerebrovascular accident) Hypercholesterolemia Hypertension Hyponatremia Impacted cerumen of both ears Insomnia Obesity (BMI 30.0-34.9) Osteoarthrosis Overweight (BMI 25.0-29.9) Preop exam for internal medicine Preoperative cardiovascular examination Primary osteoarthritis of left knee Second degree AV block Tobacco abuse Type 2 diabetes mellitus with hyperglycemia Family History Family History Father Cancer Mother Medical history unknown Brother Liver cancer Sister Hypertension COPD (chronic obstructive pulmonary disease) Surgical History Surgical History H/O breast reconstruction History of cholecystectomy History of hip replacement History of tonsillectomy Social History Social History Household Members: None Housing: Apartment Do you presently have visiting nurse or other home services: No Alcohol intake: never Patient Tobacco Use Status: Former Tobacco user Quit Date: 06/2022 Tobacco use type: Cigarette Cigarettes Per Day: 2 Smoked in Last 30 Days: No e-Cigarette/Vaping Use: Never Used Patient Interested in Nicotine Replacement: No Second Hand Smoke Exposure: No Use of substances other than those prescribed or required for medical reasons: No Currently Displaying Signs/Symptoms of Drug Intoxication Withdrawal: No Have you been hit, kicked, punched, or otherwise hurt by someone within the past year? If so, by whom?: No Do you feel safe in your current relationship?: No Current Relationship Is there a partner from a previous relationship who is making you feel unsafe now?: No Are you made to feel afraid or neglected: No Advance Directives: No Advance Directives Information Provided: No Do you have thoughts of harming others: None Do you have a plan to hurt others: No Plan Recently lost weight without trying: No Nutrition Risks: No Nutritional Risk Patient : No : No Poor oral hygiene: No service: No Current occupational status: retired Current occupation: Right Handed Cognitive needs: No Hearing needs: No Vision needs: Yes Meds Allergies Allergy/AdvReac Type Severity Reaction Status Date / Time No Known Allergies Allergy Verified 08/05/22 12:37 [No Known Allergies*] Active Medications: Current Medications Acetaminophen (Acetaminophen 325 Mg Tablet) 650 mg PO Q6H PRN PRN Reason: Pain, Mild (Pain Scale 1-3) Apixaban (Apixaban 2.5 Mg Tablet) 2.5 mg PO BID [facility] Last Admin: 09/25/22 08:44 Dose: 2.5 mg Atorvastatin Calcium (Atorvastatin Calcium 20 Mg Tablet) 20 mg PO DAILY [facility] Last Admin: 09/25/22 08:44 Dose: 20 mg Chlorpromazine HCl (Chlorpromazine Hcl 25 Mg Tablet) 50 mg PO BEDTIME [facility] Last Admin: 09/24/22 22:23 Dose: 50 mg Cholestyramine Resin (Cholestyramine (With Sugar) 4 Gm Powd.Pack) 4 gm PO DAILY [facility] Last Admin: 09/25/22 08:43 Dose: 4 gm Clonazepam (Clonazepam 1 Mg Tablet) 1 mg PO BID [facility] Last Admin: 09/25/22 08:44 Dose: 1 mg Cyanocobalamin (Cyanocobalamin (Vitamin B-12) 1,000 Mcg Tablet) 1,000 mcg PO DAILY [facility] Last Admin: 09/25/22 08:44 Dose: 1,000 mcg Folic Acid (Folic Acid 1 Mg Tablet) 1 mg PO DAILY [facility] Last Admin: 09/25/22 08:44 Dose: 1 mg Glucose (Glucose Gel 15 Gm Gel..Gram.) 15 gm PO Q15M PRN; Protocol PRN Reason: per Hypoglycemia Standing Ord. Piperacillin Sod/Tazobactam (Sod 3.375 gm/ Sodium Chloride) 50 mls @ 100 mls/hr IV Q6H [facility] Last Admin: 09/25/22 08:45 Dose: 100 mls/hr Dextrose (D10) 250 mls @ 750 mls/hr IV Q15M PRN; Protocol PRN Reason: per Hypoglycemia Standing Ord. Vancomycin HCl 1,250 mg/ (Sodium Chloride) 250 mls @ 166.667 mls/hr IV Q24H [facility] Insulin Glargine (Insulin Glargine,Hum.Rec.Anlog 100 Unit/Ml 10 Ml Vial) 8 unit SUBCUT DAILY [facility] Last Admin: 09/25/22 08:44 Dose: 8 unit Insulin Human Lispro (Insulin Lispro 100 Unit/Ml 3 Ml Vial) 0 unit SUBCUT QIDACHS [facility]; Protocol Last Admin: 09/25/22 08:43 Dose: 4 unit Melatonin (Melatonin 3 Mg Tablet) 6 mg PO BEDTIME PRN PRN Reason: insomnia Ondansetron HCl (Ondansetron Hcl 4 Mg/2 Ml Vial) 4 mg IVPUSH Q8H PRN PRN Reason: Nausea and Vomiting Pharmacy Consult (Consult Rx Perform Med Rec) 1 each MISCELLANE ONCE PRN PRN Reason: Consult order Pharmacy Consult (Consult Rx Vancomycin Dosing) 1 each MISCELLANE DAILY PRN PRN Reason: Consult order Sertraline HCl (Sertraline Hcl 100 Mg Tablet) 100 mg PO DAILY [facility] Last Admin: 09/25/22 08:44 Dose: 100 mg Sodium Chloride (0.9 % Sodium Chloride Flush 3 Ml Syringe) [facility] Last Admin: 09/25/22 08:45 Dose: 3 ml Home Medications Medication Instructions Recorded Confirmed Last Taken Type metformin 1,000 mg tablet 1,000 mg PO BIDWMEAL 08/05/22 09/24/22 09/23/22 History chlorpromazine 50 mg tablet 50 mg PO BEDTIME 09/24/22 09/24/22 09/23/22 History cholestyramine-aspartame 4 gram 1 ea PO DAILY diarrhea 09/24/22 09/24/22 09/23/22 History oral powder (Cholestyramine Light) clonazepam 1 mg tablet 1 mg PO BID 09/24/22 09/24/22 Unknown History sertraline 100 mg tablet 100 mg PO DAILY 09/24/22 09/24/22 09/23/22 History Physical Exam Vital Signs: Vital Signs: Last Vital Signs Temp 98.8 F 09/25/22 08:00 Pulse 84 09/25/22 08:00 Resp 20 09/25/22 08:00 BP 133/63 09/25/22 08:00 Pulse Ox 94 09/25/22 08:00 O2 Del Method Room Air 09/25/22 08:00 BMI result Body Mass Index 25.0 Chest: Other: Chest; breathsounds bilaterally. right subclavian PermCath with surrounding erythema and edema Results Labs 09/24/22 06:29 09/24/22 06:29 Labs: Abnormal lab results 09/24/22 09/24/22 09/24/22 Range/Units 11:02 16:33 20:17 POC Glucose 343 H 363 H* 302 H (60-115) mg/dL 09/25/22 Range/Units 08:04 POC Glucose 248 H (60-115) mg/dL Urine 09/23/22 Range/Units 23:34 Urine Color Yellow Urine Appearance Cloudy Urine pH 5.5 (5.0-9.0) Ur Specific [place] >= 1.030 H (1.005-1.025) Urine Protein 30 (1+) H (Neg-Trace) mg/dL Urine Glucose (UA) >=1000 H (Negative) mg/dL All other labs normal. Assessment and Plan (1) Central line infection: Status: Acute Plan The risks, benefits, alternatives of perm-A-Cath removal reviewed with the patient and included but not limited to bleeding, infection, numbness, pain, scarring and she wished to proceed. Patient is apparently finished with her hemodialysis and will not require a new PermCath which would not be placed at this sitting in light of the infection anyway. Time Spent With Patient Time: Total time managing care of this patient today ____ minutes. Procedures Date of Service Date of Service: 09/25/22
[2022-09-25 11:18] VITALS: BP 149/66; PULSE 73; RESP 19; TEMP 36.8; O2SAT 97
--- NOTE | 2022-09-25 12:13 | P.CONAN_ITS ---
HPI - Anesthesia Eval Consult details Narrative: Infected Perm-catheter PMFSH Active Problems Active Problems: All Active Problems (Updated 09/24/22 @ 07:03 by Claudette Thurman MD) Central line infection (Acute) UTI (urinary tract infection) (Acute) Leukocytosis (Acute) Weakness (Acute) Colitis (Acute) Type 2 diabetes mellitus with hyperglycemia (Acute) Adjustment disorder with depressed mood (Acute) Atherosclerotic cardiovascular disease (Acute) Atrial flutter (Acute) Open wound of left elbow (Acute) End stage renal disease (Acute) Myocardial infarction (Acute) Abrasion of left elbow (Acute) Metabolic acidosis (Acute) Age-related osteoporosis without current pathological fracture (Acute) Primary localized osteoarthritis of knees, bilateral (Acute) Primary osteoarthritis of right hip (Acute) Overweight (BMI 25.0-29.9) (Acute) Insomnia (Acute) Hypercholesterolemia (Acute) Osteoarthrosis (Acute) Past Medical History Medical History Adjustment disorder with depressed mood Annual physical exam Annual physical exam Atherosclerotic cardiovascular disease Atrial flutter Frequency of micturition Generalized anxiety disorder History of CVA (cerebrovascular accident) Hypercholesterolemia Hypertension Hyponatremia Impacted cerumen of both ears Insomnia Obesity (BMI 30.0-34.9) Osteoarthrosis Overweight (BMI 25.0-29.9) Preop exam for internal medicine Preoperative cardiovascular examination Primary osteoarthritis of left knee Second degree AV block Tobacco abuse Type 2 diabetes mellitus with hyperglycemia Family History Family History Father Cancer Mother Medical history unknown Brother Liver cancer Sister Hypertension COPD (chronic obstructive pulmonary disease) Family history of problems with anesthesia: No Surgical History Surgical History H/O breast reconstruction History of cholecystectomy History of hip replacement History of tonsillectomy History of Problems with Anesthesia: No Social History Social History Household Members: None Housing: Apartment Do you presently have visiting nurse or other home services: No Alcohol intake: never Patient Tobacco Use Status: Former Tobacco user Quit Date: 06/2022 Tobacco use type: Cigarette Cigarettes Per Day: 2 Smoked in Last 30 Days: No e-Cigarette/Vaping Use: Never Used Patient Interested in Nicotine Replacement: No Second Hand Smoke Exposure: No Use of substances other than those prescribed or required for medical reasons: No Currently Displaying Signs/Symptoms of Drug Intoxication Withdrawal: No Have you been hit, kicked, punched, or otherwise hurt by someone within the past year? If so, by whom?: No Do you feel safe in your current relationship?: No Current Relationship Is there a partner from a previous relationship who is making you feel unsafe now?: No Are you made to feel afraid or neglected: No Advance Directives: No Advance Directives Information Provided: No Do you have thoughts of harming others: None Do you have a plan to hurt others: No Plan Recently lost weight without trying: No Nutrition Risks: No Nutritional Risk Patient : No : No Poor oral hygiene: No service: No Current occupational status: retired Current occupation: Right Handed Cognitive needs: No Hearing needs: No Vision needs: Yes Meds Allergies Allergy/AdvReac Type Severity Reaction Status Date / Time No Known Allergies Allergy Verified 08/05/22 12:37 [No Known Allergies*] Active Medications: Current Medications Acetaminophen (Acetaminophen 325 Mg Tablet) 650 mg PO Q6H PRN PRN Reason: Pain, Mild (Pain Scale 1-3) Apixaban (Apixaban 2.5 Mg Tablet) 2.5 mg PO BID [facility] Last Admin: 09/25/22 08:44 Dose: 2.5 mg Atorvastatin Calcium (Atorvastatin Calcium 20 Mg Tablet) 20 mg PO DAILY [facility] Last Admin: 09/25/22 08:44 Dose: 20 mg Chlorpromazine HCl (Chlorpromazine Hcl 25 Mg Tablet) 50 mg PO BEDTIME [facility] Last Admin: 09/24/22 22:23 Dose: 50 mg Cholestyramine Resin (Cholestyramine (With Sugar) 4 Gm Powd.Pack) 4 gm PO DAILY [facility] Last Admin: 09/25/22 08:43 Dose: 4 gm Clonazepam (Clonazepam 1 Mg Tablet) 1 mg PO BID [facility] Last Admin: 09/25/22 08:44 Dose: 1 mg Cyanocobalamin (Cyanocobalamin (Vitamin B-12) 1,000 Mcg Tablet) 1,000 mcg PO DAILY [facility] Last Admin: 09/25/22 08:44 Dose: 1,000 mcg Folic Acid (Folic Acid 1 Mg Tablet) 1 mg PO DAILY [facility] Last Admin: 09/25/22 08:44 Dose: 1 mg Glucose (Glucose Gel 15 Gm Gel..Gram.) 15 gm PO Q15M PRN; Protocol PRN Reason: per Hypoglycemia Standing Ord. Piperacillin Sod/Tazobactam (Sod 3.375 gm/ Sodium Chloride) 50 mls @ 100 mls/hr IV Q6H [facility] Last Admin: 09/25/22 08:45 Dose: 100 mls/hr Dextrose (D10) 250 mls @ 750 mls/hr IV Q15M PRN; Protocol PRN Reason: per Hypoglycemia Standing Ord. Vancomycin HCl 1,250 mg/ (Sodium Chloride) 250 mls @ 166.667 mls/hr IV Q24H [facility] Insulin Glargine (Insulin Glargine,Hum.Rec.Anlog 100 Unit/Ml 10 Ml Vial) 8 unit SUBCUT DAILY [facility] Last Admin: 09/25/22 08:44 Dose: 8 unit Insulin Human Lispro (Insulin Lispro 100 Unit/Ml 3 Ml Vial) 0 unit SUBCUT QIDACHS [facility]; Protocol Last Admin: 09/25/22 08:43 Dose: 4 unit Melatonin (Melatonin 3 Mg Tablet) 6 mg PO BEDTIME PRN PRN Reason: insomnia Ondansetron HCl (Ondansetron Hcl 4 Mg/2 Ml Vial) 4 mg IVPUSH Q8H PRN PRN Reason: Nausea and Vomiting Pharmacy Consult (Consult Rx Perform Med Rec) 1 each MISCELLANE ONCE PRN PRN Reason: Consult order Pharmacy Consult (Consult Rx Vancomycin Dosing) 1 each MISCELLANE DAILY PRN PRN Reason: Consult order Sertraline HCl (Sertraline Hcl 100 Mg Tablet) 100 mg PO DAILY [facility] Last Admin: 09/25/22 08:44 Dose: 100 mg Sodium Chloride (0.9 % Sodium Chloride Flush 3 Ml Syringe) [facility] Last Admin: 09/25/22 08:45 Dose: 3 ml Home Medications Medication Instructions Recorded Confirmed Last Taken Type metformin 1,000 mg tablet 1,000 mg PO BIDWMEAL 08/05/22 09/24/22 09/23/22 History chlorpromazine 50 mg tablet 50 mg PO BEDTIME 09/24/22 09/24/22 09/23/22 History cholestyramine-aspartame 4 gram 1 ea PO DAILY diarrhea 09/24/22 09/24/22 09/23/22 History oral powder (Cholestyramine Light) clonazepam 1 mg tablet 1 mg PO BID 09/24/22 09/24/22 Unknown History sertraline 100 mg tablet 100 mg PO DAILY 09/24/22 09/24/22 09/23/22 History Exam Exam Date and Time: September 25, 2022 1213 Height,Weight and Vital Signs: Height 5 ft 6 in Weight 70.2 kg Last Vital Signs Temp 98.2 F 09/25/22 11:18 Pulse 73 09/25/22 11:18 Resp 19 09/25/22 11:18 BP 149/66 H 09/25/22 11:18 Pulse Ox 97 09/25/22 11:18 O2 Del Method Room Air 09/25/22 11:18 Pertinent Lab Results Pertinent Lab Results: Laboratory Tests 09/23/22 09/23/22 09/23/22 19:46 19:46 19:46 WBC 21.9 H RBC 4.41 D Hgb 12.7 D Hct 37.9 D MCV 85.9 MCH 28.8 MCHC 33.5 RDW 13.6 Plt Count 246 MPV 10.0 Immature Gran % (Auto) Neut % (Auto) Lymph % (Auto) [place] % (Auto) Eos % (Auto) Baso % (Auto) Lymph # (Auto) [place] # (Auto) Eos # (Auto) Baso # (Auto) Abs Immat Gran (auto) Absolute Neuts (auto) Absolute Nucleated RBC 0.000 Nucleated RBC % (auto) 0.0 PT INR APTT Sodium 126 L Potassium 5.4 H D Chloride 96 Carbon Dioxide 15 L Anion Gap 20 BUN 17 H Creatinine 1.21 Estim Creat Clear Calc 40.3 Estimated GFR 43 POC Glucose Random Glucose 464 H* Lactic Acid Lactic Acid F/U @ 2Hr Calcium 9.3 D Total Bilirubin 0.8 Direct Bilirubin 0.3 AST 20 ALT 20 Alkaline Phosphatase 70 Total Creatine Kinase 224 H Troponin I High Sens 70.2 H* D B-Natriuretic Peptide Total Protein 6.6 Albumin 4.1 Lipase 18 Urine Color Urine Appearance Urine pH Ur Specific [place] Urine Protein Urine Glucose (UA) Urine Ketones Urine Blood Urine Nitrite Ur Leukocyte Esterase Urine RBC Urine WBC Ur Squamous Epith Cells Urine Bacteria Hyaline Casts Influenza Type A (PCR) Influenza Type B (PCR) RSV RNA Qual (PCR) SARS-CoV-2 RNA (RT-PCR) 09/23/22 09/23/22 09/23/22 20:00 21:38 22:50 WBC RBC Hgb Hct MCV MCH MCHC RDW Plt Count MPV Immature Gran % (Auto) Neut % (Auto) Lymph % (Auto) [place] % (Auto) Eos % (Auto) Baso % (Auto) Lymph # (Auto) [place] # (Auto) Eos # (Auto) Baso # (Auto) Abs Immat Gran (auto) Absolute Neuts (auto) Absolute Nucleated RBC Nucleated RBC % (auto) PT 18.3 H INR 1.6 H APTT 35.7 D Sodium Potassium Chloride Carbon Dioxide Anion Gap BUN Creatinine Estim Creat Clear Calc Estimated GFR POC Glucose 287 H Random Glucose Lactic Acid Lactic Acid F/U @ 2Hr Calcium Total Bilirubin Direct Bilirubin AST ALT Alkaline Phosphatase Total Creatine Kinase Troponin I High Sens 79.0 H* B-Natriuretic Peptide Total Protein Albumin Lipase Urine Color Urine Appearance Urine pH Ur Specific [place] Urine Protein Urine Glucose (UA) Urine Ketones Urine Blood Urine Nitrite Ur Leukocyte Esterase Urine RBC Urine WBC Ur Squamous Epith Cells Urine Bacteria Hyaline Casts Influenza Type A (PCR) Influenza Type B (PCR) RSV RNA Qual (PCR) SARS-CoV-2 RNA (RT-PCR) 09/23/22 09/23/22 09/23/22 23:34 23:38 23:39 WBC RBC Hgb Hct MCV MCH MCHC RDW Plt Count MPV Immature Gran % (Auto) Neut % (Auto) Lymph % (Auto) [place] % (Auto) Eos % (Auto) Baso % (Auto) Lymph # (Auto) [place] # (Auto) Eos # (Auto) Baso # (Auto) Abs Immat Gran (auto) Absolute Neuts (auto) Absolute Nucleated RBC Nucleated RBC % (auto) PT INR APTT Sodium Potassium Chloride Carbon Dioxide Anion Gap BUN Creatinine Estim Creat Clear Calc Estimated GFR POC Glucose Random Glucose Lactic Acid 2.2 H* Lactic Acid F/U @ 2Hr Calcium Total Bilirubin Direct Bilirubin AST ALT Alkaline Phosphatase Total Creatine Kinase Troponin I High Sens B-Natriuretic Peptide Total Protein Albumin Lipase Urine Color Yellow Urine Appearance Cloudy Urine pH 5.5 Ur Specific [place] >= 1.030 H Urine Protein 30 (1+) H Urine Glucose (UA) >=1000 H Urine Ketones 40 Urine Blood Trace H Urine Nitrite Negative Ur Leukocyte Esterase Trace H Urine RBC 0-2 Urine WBC 0-5 Ur Squamous Epith Cells 0-2 Urine Bacteria Trace Hyaline Casts 0-2 Influenza Type A (PCR) NEGATIVE Influenza Type B (PCR) NEGATIVE RSV RNA Qual (PCR) NEGATIVE SARS-CoV-2 RNA (RT-PCR) NEGATIVE 09/23/22 09/24/22 09/24/22 23:57 00:12 01:56 WBC RBC Hgb Hct MCV MCH MCHC RDW Plt Count MPV Immature Gran % (Auto) Neut % (Auto) Lymph % (Auto) [place] % (Auto) Eos % (Auto) Baso % (Auto) Lymph # (Auto) [place] # (Auto) Eos # (Auto) Baso # (Auto) Abs Immat Gran (auto) Absolute Neuts (auto) Absolute Nucleated RBC Nucleated RBC % (auto) PT INR APTT Sodium Potassium Chloride Carbon Dioxide Anion Gap BUN Creatinine Estim Creat Clear Calc Estimated GFR POC Glucose 261 H Random Glucose Lactic Acid Lactic Acid F/U @ 2Hr 1.4 Calcium Total Bilirubin Direct Bilirubin AST ALT Alkaline Phosphatase Total Creatine Kinase Troponin I High Sens B-Natriuretic Peptide 528 H Total Protein Albumin Lipase Urine Color Urine Appearance Urine pH Ur Specific [place] Urine Protein Urine Glucose (UA) Urine Ketones Urine Blood Urine Nitrite Ur Leukocyte Esterase Urine RBC Urine WBC Ur Squamous Epith Cells Urine Bacteria Hyaline Casts Influenza Type A (PCR) Influenza Type B (PCR) RSV RNA Qual (PCR) SARS-CoV-2 RNA (RT-PCR) 09/24/22 09/24/22 09/24/22 04:54 06:29 06:29 WBC 16.5 H RBC 3.80 L Hgb 11.1 L Hct 33.1 L MCV 87.1 MCH 29.2 MCHC 33.5 RDW 14.0 Plt Count 197 MPV 9.7 Immature Gran % (Auto) 0.5 H Neut % (Auto) 85.5 H Lymph % (Auto) 6.5 L [place] % (Auto) 6.1 Eos % (Auto) 1.0 Baso % (Auto) 0.4 Lymph # (Auto) 1.1 L [place] # (Auto) 1.0 Eos # (Auto) 0.2 Baso # (Auto) 0.1 Abs Immat Gran (auto) 0.09 H Absolute Neuts (auto) 14.1 H Absolute Nucleated RBC 0.000 Nucleated RBC % (auto) 0.0 PT INR APTT Sodium 131 L Potassium 4.4 Chloride 103 Carbon Dioxide 17 L Anion Gap 15 BUN 18 H Creatinine 1.02 Estim Creat Clear Calc 43.9 Estimated GFR 53 POC Glucose 302 H Random Glucose 293 H Lactic Acid Lactic Acid F/U @ 2Hr Calcium 8.7 D Total Bilirubin Direct Bilirubin AST ALT Alkaline Phosphatase Total Creatine Kinase Troponin I High Sens B-Natriuretic Peptide Total Protein Albumin Lipase Urine Color Urine Appearance Urine pH Ur Specific [place] Urine Protein Urine Glucose (UA) Urine Ketones Urine Blood Urine Nitrite Ur Leukocyte Esterase Urine RBC Urine WBC Ur Squamous Epith Cells Urine Bacteria Hyaline Casts Influenza Type A (PCR) Influenza Type B (PCR) RSV RNA Qual (PCR) SARS-CoV-2 RNA (RT-PCR) 09/24/22 09/24/22 09/24/22 07:23 11:02 16:33 WBC RBC Hgb Hct MCV MCH MCHC RDW Plt Count MPV Immature Gran % (Auto) Neut % (Auto) Lymph % (Auto) [place] % (Auto) Eos % (Auto) Baso % (Auto) Lymph # (Auto) [place] # (Auto) Eos # (Auto) Baso # (Auto) Abs Immat Gran (auto) Absolute Neuts (auto) Absolute Nucleated RBC Nucleated RBC % (auto) PT INR APTT Sodium Potassium Chloride Carbon Dioxide Anion Gap BUN Creatinine Estim Creat Clear Calc Estimated GFR POC Glucose 278 H 343 H 363 H* Random Glucose Lactic Acid Lactic Acid F/U @ 2Hr Calcium Total Bilirubin Direct Bilirubin AST ALT Alkaline Phosphatase Total Creatine Kinase Troponin I High Sens B-Natriuretic Peptide Total Protein Albumin Lipase Urine Color Urine Appearance Urine pH Ur Specific [place] Urine Protein Urine Glucose (UA) Urine Ketones Urine Blood Urine Nitrite Ur Leukocyte Esterase Urine RBC Urine WBC Ur Squamous Epith Cells Urine Bacteria Hyaline Casts Influenza Type A (PCR) Influenza Type B (PCR) RSV RNA Qual (PCR) SARS-CoV-2 RNA (RT-PCR) 09/24/22 09/25/22 20:17 08:04 WBC RBC Hgb Hct MCV MCH MCHC RDW Plt Count MPV Immature Gran % (Auto) Neut % (Auto) Lymph % (Auto) [place] % (Auto) Eos % (Auto) Baso % (Auto) Lymph # (Auto) [place] # (Auto) Eos # (Auto) Baso # (Auto) Abs Immat Gran (auto) Absolute Neuts (auto) Absolute Nucleated RBC Nucleated RBC % (auto) PT INR APTT Sodium Potassium Chloride Carbon Dioxide Anion Gap BUN Creatinine Estim Creat Clear Calc Estimated GFR POC Glucose 302 H 248 H Random Glucose Lactic Acid Lactic Acid F/U @ 2Hr Calcium Total Bilirubin Direct Bilirubin AST ALT Alkaline Phosphatase Total Creatine Kinase Troponin I High Sens B-Natriuretic Peptide Total Protein Albumin Lipase Urine Color Urine Appearance Urine pH Ur Specific [place] Urine Protein Urine Glucose (UA) Urine Ketones Urine Blood Urine Nitrite Ur Leukocyte Esterase Urine RBC Urine WBC Ur Squamous Epith Cells Urine Bacteria Hyaline Casts Influenza Type A (PCR) Influenza Type B (PCR) RSV RNA Qual (PCR) SARS-CoV-2 RNA (RT-PCR) Airway Mallampati Class: II TM Dist: >3cm Heart: RRR Lungs: CTA Assessment and Plan Assessment Anesthesia Assessment: Anesthesia Plan Discussed and Chart Reviewed Final Anesthetic Review Family History of Problems with Anesthesia: No History of Problems with Anesthesia: No NPO: No ASA Class: III and Emergency Final Preanesthetic Review: No Changes in Pt Med Stat, Meds/Allgs Chart Reviewed, Consent Obtained/Reviewed and Anes Risks/Benef Reviewed Patient Risk: High Procedure Risk: Low Anesthetic Plan Anesthetic Plan: MAC: Disposition: Standard PACU
[2022-09-25 12:19] LABS: Glucose, Whole Blood 341 mg/dL (60-115)
--- NOTE | 2022-09-25 12:35 | HO.PM.IMPN ---
Subjective Subjective Date of Service: 09/25/22 Interval History: Seen and evaluated this morning report feeling weak and has no energy denies any fever or chills blood cultures positive for GPC no other overnight events reported Review of Systems Review of Systems: Yes all other systems are reviewed and are negative Physical Exam Vital Signs: Vital Signs: Last Vital Signs Temp 98.2 F 09/25/22 11:18 Pulse 73 09/25/22 11:18 Resp 19 09/25/22 11:18 BP 149/66 H 09/25/22 11:18 Pulse Ox 97 09/25/22 11:18 O2 Del Method Room Air 09/25/22 11:18 BMI result Body Mass Index 25.0 Const: Other: Constitutional : Awake, interactive, not in distress Neck : Normal inspection, Supple Chest: site of Permacath with erythema, tenderness Cardiovascular : RRR, no JVP, no lower extremity edema Respiratory : good bilateral air entry, no crackles, wheezes or rhonchi Gastrointestinal: soft, lax, Normal bowel sounds, Non tender Skin : Warm, Dry Neurological : Alert & oriented x3, No focal deficit , CN 2-12 within normal Objective Data Active Medications Acetaminophen (Acetaminophen 325 Mg Tablet) 650 mg PO Q6H PRN PRN Reason: Pain, Mild (Pain Scale 1-3) Apixaban (Apixaban 2.5 Mg Tablet) 2.5 mg PO BID [facility] Last Admin: 09/25/22 08:44 Dose: 2.5 mg Documented By: SELINA Atorvastatin Calcium (Atorvastatin Calcium 20 Mg Tablet) 20 mg PO DAILY [facility] Last Admin: 09/25/22 08:44 Dose: 20 mg Documented By: SELINA Chlorpromazine HCl (Chlorpromazine Hcl 25 Mg Tablet) 50 mg PO BEDTIME [facility] Last Admin: 09/24/22 22:23 Dose: 50 mg Documented By: SHARMAINE Cholestyramine Resin (Cholestyramine (With Sugar) 4 Gm Powd.Pack) 4 gm PO DAILY [facility] Last Admin: 09/25/22 08:43 Dose: 4 gm Documented By: SELINA Clonazepam (Clonazepam 1 Mg Tablet) 1 mg PO BID [facility] Last Admin: 09/25/22 08:44 Dose: 1 mg Documented By: SELINA Cyanocobalamin (Cyanocobalamin (Vitamin B-12) 1,000 Mcg Tablet) 1,000 mcg PO DAILY [facility] Last Admin: 09/25/22 08:44 Dose: 1,000 mcg Documented By: SELINA Fentanyl (Fentanyl Citrate/Pf 100 Mcg/2 Ml Vial) 25 mcg IVPUSH Q5M PRN; Protocol PRN Reason: Pain, Moderate (Pain Scale 4-6 Folic Acid (Folic Acid 1 Mg Tablet) 1 mg PO DAILY [facility] Last Admin: 09/25/22 08:44 Dose: 1 mg Documented By: SELINA Glucose (Glucose Gel 15 Gm Gel..Gram.) 15 gm PO Q15M PRN; Protocol PRN Reason: per Hypoglycemia Standing Ord. Piperacillin Sod/Tazobactam (Sod 3.375 gm/ Sodium Chloride) 50 mls @ 100 mls/hr IV Q6H [facility] Last Admin: 09/25/22 08:45 Dose: 100 mls/hr Documented By: SELINA Dextrose (D10) 250 mls @ 750 mls/hr IV Q15M PRN; Protocol PRN Reason: per Hypoglycemia Standing Ord. Vancomycin HCl 1,250 mg/ (Sodium Chloride) 250 mls @ 166.667 mls/hr IV Q24H [facility] Insulin Glargine (Insulin Glargine,Hum.Rec.Anlog 100 Unit/Ml 10 Ml Vial) 8 unit SUBCUT DAILY [facility] Last Admin: 09/25/22 08:44 Dose: 8 unit Documented By: SELINA Insulin Human Lispro (Insulin Lispro 100 Unit/Ml 3 Ml Vial) 0 unit SUBCUT QIDACHS [facility]; Protocol Last Admin: 09/25/22 08:43 Dose: 4 unit Documented By: SELINA Melatonin (Melatonin 3 Mg Tablet) 6 mg PO BEDTIME PRN PRN Reason: insomnia Ondansetron HCl (Ondansetron Hcl 4 Mg/2 Ml Vial) 4 mg IVPUSH Q8H PRN PRN Reason: Nausea and Vomiting Pharmacy Consult (Consult Rx Perform Med Rec) 1 each MISCELLANE ONCE PRN PRN Reason: Consult order Pharmacy Consult (Consult Rx Vancomycin Dosing) 1 each MISCELLANE DAILY PRN PRN Reason: Consult order Sertraline HCl (Sertraline Hcl 100 Mg Tablet) 100 mg PO DAILY [facility] Last Admin: 09/25/22 08:44 Dose: 100 mg Documented By: SELINA Sodium Chloride (0.9 % Sodium Chloride Flush 3 Ml Syringe) 3 ml IVFLUSH QSHIFT [facility] Last Admin: 09/25/22 08:45 Dose: 3 ml Documented By: SELINA Labs 09/24/22 06:29 09/24/22 06:29 Labs: Laboratory Results - last 24 hr 09/24/22 09/24/22 09/25/22 16:33 20:17 08:04 POC Glucose 363 H* 302 H 248 H 09/25/22 11:17 POC Glucose 341 H Microbiology Microbiology Results: Microbiology 09/24/22 02:53 Blood Culture - Preliminary Blood - Central Line Staphylococcus aureus 09/23/22 23:52 Blood Culture - Preliminary Blood - Venous Staphylococcus aureus 09/23/22 23:40 Blood Culture - Preliminary Blood - Venous Staphylococcus aureus 09/24/22 13:49 Blood Culture - Preliminary Blood - Venous Prelim: GPC Gram Stain only 09/24/22 13:42 Blood Culture - Preliminary Blood - Venous Prelim: GPC Gram Stain only Assessment and Plan (1) Central line infection: Status: Acute (2) Colitis: Status: Acute (3) Staphylococcus aureus bacteremia: Status: Acute Plan 77-year-old female with past medical history that includes HTN HLD, recent MRI in June, JHONNY secondary to rhabdomyolysis in June that is now hemodialysis dependent with a PermCath in place presents to the hospital with weakness. Found to have multiple abnormalities. # staph aureus bacteremia 2/2 PermCath site infection repeated cx positive, to repeat On Vancomycin and Zosyn Surgery to remove the Permacath ID consult follow vanco trough # questionable colitis CT scan showing mild colon wall thickening abdominal pain, denies any nausea vomiting or diarrhea on broad-spectrum antibiotic tolerating diet # Hx of hemodialysis did no t need HD for 2 weeks # Fall multifactorial PT/OT eval prior to discharge # DM/Hyperglycemia LDDSI hold oral antihyperglyceimics Diabetic diet # A flutter continue eliquis # HTN continue home antihypertensives DVT ppx: Eliquis given pt need for IV abx while further evaluation acute issues including acute leukocytosis pt will overnight inpatient hospital stay for furthe rmanagement # recent history of CAD Time Spent With Patient Time: Total time managing care of this patient today ____ minutes. Quality Stroke Does the patient have a stroke diagnosis?: No VTE Prior VTE?: No VTE Risk Level:: Medical - moderate - high VTE Device Contraindication: Treatment Not Indicated VTE Drug Contraindication: N/A - Med Ordered
--- NOTE | 2022-09-25 13:17 | P.OP_ITS ---
Operative Note Operative Note Date of Service: 09/25/22 Narrative: Preoperative diagnosis: [] Postop diagnosis: [] infected right neck PermCath Procedure [] same Surgeon: [] right Production Assembly Operator: [] Type of Anesthesia: [] MAC Indication for surgery: [] infected PermCath Findings: [] Infected PermCath. Culture of tip was undertaken. The patient brought the OR, and kept in her transport bed, and after adequate level of preparation of the patient, the PermCath was being prepped and a was very infected and slimy and actually removed quite easily. Tip of catheter was sent for permanent culture. Entry site was irrigated, secured hemostasis, and sterile dressing applied. Sponge, needle, and instrument counts were reported to be correct. Patient tolerated procedure well and emerged from the OR room in stable condition. EBL minimum
--- NOTE | 2022-09-25 13:40 | PM.PNNEP ---
Subjective Subjective Date of Service: 10/20/22 Interval history: Seen and evaluated report feeling weak denies any fever or chills blood cultures positive for GPC no other overnight events reported Physical Exam Vital Signs: Vital Signs: Last Vital Signs Temp 98.2 F 09/25/22 11:18 Pulse 73 09/25/22 11:18 Resp 19 09/25/22 11:18 BP 149/66 H 09/25/22 11:18 Pulse Ox 97 09/25/22 11:18 O2 Del Method Room Air 09/25/22 11:18 BMI result Body Mass Index 25.0 Const: Other: Constitutional : Awake, interactive, not in distress Neck : Normal inspection, Supple Chest: site of Permacath with erythema, tenderness Cardiovascular : RRR, no JVP, no lower extremity edema Respiratory : good bilateral air entry, no crackles, wheezes or rhonchi Gastrointestinal: soft, lax, Normal bowel sounds, Non tender Skin : Warm, Dry Neurological : Alert & oriented x3, No focal deficit , CN 2-12 within normal Objective Data Labs 09/24/22 06:29 09/24/22 06:29 Labs: Laboratory Results - last 24 hr 09/24/22 09/24/22 09/25/22 16:33 20:17 08:04 POC Glucose 363 H* 302 H 248 H 09/25/22 11:17 POC Glucose 341 H Microbiology Microbiology Results: Microbiology 09/24/22 02:53 Blood - Central Line Blood Culture - Preliminary Staphylococcus aureus 09/23/22 23:52 Blood - Venous Blood Culture - Preliminary Staphylococcus aureus 09/23/22 23:40 Blood - Venous Blood Culture - Preliminary Staphylococcus aureus 09/24/22 13:49 Blood - Venous Blood Culture - Preliminary Prelim: GPC Gram Stain only 09/24/22 13:42 Blood - Venous Blood Culture - Preliminary Prelim: GPC Gram Stain only Procedures Date of Service Date of Service: 09/25/22 Assessment & Plan Assessment and plan (1) JHONNY (acute kidney injury): Status: Resolved (2) Metabolic acidosis: Status: Resolved Plan JHONNY : 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 Progress Note: Quality Stroke Does the patient have a stroke diagnosis?: No
[2022-09-25 15:00] VITALS: BP 109/59; PULSE 70; RESP 20; TEMP 36.7; O2SAT 94
[2022-09-25] MEDS: metFORMIN HCl 1,000 MG TABLET 1000 MG PO (17:38)
[2022-09-25 19:01] VITALS: BP 136/61; PULSE 75; RESP 20; TEMP 36.7; O2SAT 94
[2022-09-25 20:01] LABS: Glucose, Whole Blood 315 mg/dL (60-115)
[2022-09-25] MEDS: chlorproMAZINE HCl 25 MG TABLET 50 MG PO (20:28)
[2022-09-25] MEDS: Melatonin 3 MG TABLET 6 MG PO (20:30)
[2022-09-26] MEDS: 0.9 % Sodium Chloride Flush 3 ML SYRINGE IVFLUSH ×3 (00:07→17:20)
[2022-09-26 03:07] VITALS: BP 121/59; PULSE 65; RESP 20; TEMP 36.6; O2SAT 93
[2022-09-26] MEDS: Piperacillin Sodium/Tazobactam 3.375 GM in 0.9 % Sodium Chloride 50 ML IV ×2 (03:36→08:24)
[2022-09-26 06:00] VITALS: BMI 27.0
[2022-09-26 06:39] LABS: Hematocrit 30.4 % (37.0-47.0); Hemoglobin 10.1 g/dl (12.0-16.0); Mean Corpuscular HGB Conc 33.2 g/dl (31.0-35.0); Mean Corpuscular Hemoglobin 28.7 pg (27.0-33.0); Mean Corpuscular Volume 86.4 fL (80.0-98.0); Mean Platelet Volume 10.4 fL (9.4-12.3); Platelet Count 222 X10*3/uL (160-400); Red Blood Count 3.52 X10*6/uL (4.20-5.50); White Blood Count 9.4 X10*3/uL (4.8-10.8)
[2022-09-26 07:01] LABS: Vancomycin Trough 2.7 mcg/mL (10.0-20.0)
[2022-09-26 07:12] VITALS: BP 119/58; PULSE 61; RESP 20; TEMP 37.2; O2SAT 95
[2022-09-26 07:19] LABS: Anion Gap 13 (12-20); Blood Urea Nitrogen 18 mg/dL (9-16); Calcium 8.4 mg/dL (8.4-10.2); Carbon Dioxide 19 mmol/L (22-29); Chloride 107 mmol/L (96-108); Creatinine Clr Calc Pharmacy 54.7; Estimated Glomerular Filt Rate > 60; Glucose Random 193 mg/dL (60-115); Potassium 3.8 mmol/L (3.3-5.1); Sodium 135 mmol/L (135-145)
[2022-09-26 07:58] LABS: Glucose, Whole Blood 205 mg/dL (60-115)
[2022-09-26] MEDS: Insulin Glargine,Hum.rec.anlog 100 UNIT/ML 10 ML VIAL 8 UNIT SUBCUT (08:13)
[2022-09-26] MEDS: Insulin Lispro 100 UNIT/ML 3 ML VIAL SUBCUT ×4 (08:13→21:23)
[2022-09-26] MEDS: Folic Acid 1 MG TABLET PO (08:14)
[2022-09-26] MEDS: Apixaban 2.5 MG TABLET PO ×2 (08:14→21:23)
[2022-09-26] MEDS: Cyanocobalamin (Vitamin B-12) 1,000 MCG TABLET 1000 MCG PO (08:14)
[2022-09-26] MEDS: Sertraline HCL 100 MG TABLET PO (08:14)
[2022-09-26] MEDS: metFORMIN HCl 1,000 MG TABLET 1000 MG PO ×2 (08:14→17:20)
[2022-09-26] MEDS: clonazePAM 1 MG TABLET PO ×2 (08:14→21:23)
[2022-09-26] MEDS: Atorvastatin Calcium 20 MG TABLET PO (08:14)
[2022-09-26] MEDS: Cholecalciferol (Vitamin D3) 25 MCG TABLET PO (08:14)
[2022-09-26] MEDS: vancomycin HCL 1,000 MG, vancomycin HCL 750 MG in 0.9 % Sodium Chloride 500 ML 267.5 MG IV (09:14)
[2022-09-26] MEDS: Cholestyramine (With Sugar) 4 GM POWD.PACK PO (09:15)
--- NOTE | 2022-09-26 09:47 | HE.PHANOTE ---
Vancomycin Dose Level 2.3 today. Patient did not receive dose yesterday as dose was enter to be given 09/26/2023. Also patient did not receive an adequate load dose for patient's weight. Since patient has sepsis will reload the patient with a one-time 1750 mg dose (23mg/kg) then start patient on 1250 mg Q24H 09/27/22 @ 0900. Level will be drawn 09/28 @ 0700. Pharmacy will monitor renal function daily. Delia Shukla, Chepe[facility]
--- NOTE | 2022-09-26 09:56 | HO.POSTANES ---
Post Anesthesia Evaluation Post Anesthesia Evaluation Vital Signs: Vital Signs Temp Pulse Resp BP Pulse Ox O2 Del Method 09/26/22 07:12 98.9 F 61 20 119/58 L 95 Room Air 09/26/22 03:07 97.8 F 65 20 121/59 L 93 Room Air Anesthesia: Monitored Mental Status: Awake Pain Control: Satisfactory Nausea/Vomiting: None Hydration: Adequate Anesthesia-Related Issues: No Anes. Related Issues
--- NOTE | 2022-09-26 10:20 | P.PNGS_ITS ---
Subjective Subjective Date of Service: 09/26/22 Interval history: Patient feeling much better status post PermCath removal yesterday. She is tolerating her diet. Physical Exam Vital Signs: Vital Signs: Last Vital Signs Temp 98.9 F 09/26/22 07:12 Pulse 61 09/26/22 07:12 Resp 20 09/26/22 07:12 BP 119/58 L 09/26/22 07:12 Pulse Ox 95 09/26/22 07:12 O2 Del Method Room Air 09/26/22 07:12 BMI result Body Mass Index 27.0 Const: Other: Patient more alert and awake and conversant this morning. Chest: Other: Right neck and chest erythema much improved and receding from yesterday's marked area. Objective Data Active Medications Acetaminophen (Acetaminophen 325 Mg Tablet) 650 mg PO Q6H PRN PRN Reason: Pain, Mild (Pain Scale 1-3) Acetaminophen (Acetaminophen 325 Mg Tablet) 650 mg PO Q6H PRN PRN Reason: Pain, Moderate (Pain Scale 4-6 Apixaban (Apixaban 2.5 Mg Tablet) 2.5 mg PO BID [facility] Last Admin: 09/26/22 08:14 Dose: 2.5 mg Documented By: KATHIE Atorvastatin Calcium (Atorvastatin Calcium 20 Mg Tablet) 20 mg PO DAILY [facility] Last Admin: 09/26/22 08:14 Dose: 20 mg Documented By: KATHIE Chlorpromazine HCl (Chlorpromazine Hcl 25 Mg Tablet) 50 mg PO BEDTIME [facility] Last Admin: 09/25/22 20:28 Dose: 50 mg Documented By: BORIS Cholestyramine Resin (Cholestyramine (With Sugar) 4 Gm Powd.Pack) 4 gm PO DAILY [facility] Last Admin: 09/26/22 09:15 Dose: 4 gm Documented By: KATHIE Clonazepam (Clonazepam 1 Mg Tablet) 1 mg PO BID [facility] Last Admin: 09/26/22 08:14 Dose: 1 mg Documented By: KATHIE Cyanocobalamin (Cyanocobalamin (Vitamin B-12) 1,000 Mcg Tablet) 1,000 mcg PO D AILY [facility] Last Admin: 09/26/22 08:14 Dose: 1,000 mcg Documented By: KATHIE Fentanyl (Fentanyl Citrate/Pf 100 Mcg/2 Ml Vial) 25 mcg IVPUSH Q5M PRN; Protocol PRN Reason: Pain, Moderate (Pain Scale 4-6 Folic Acid (Folic Acid 1 Mg Tablet) 1 mg PO DAILY [facility] Last Admin: 09/26/22 08:14 Dose: 1 mg Documented By: KATHIE Glucose (Glucose Gel 15 Gm Gel..Gram.) 15 gm PO Q15M PRN; Protocol PRN Reason: per Hypoglycemia Standing Ord. Piperacillin Sod/Tazobactam (Sod 3.375 gm/ Sodium Chloride) 50 mls @ 100 mls/hr IV Q6H [facility] Last Infusion: 09/26/22 09:13 Dose: 0 mls/hr Documented By: KATHIE Dextrose (D10) 250 mls @ 750 mls/hr IV Q15M PRN; Protocol PRN Reason: per Hypoglycemia Standing Ord. Vancomycin HCl 1,250 mg/ (Sodium Chloride) 250 mls @ 166.667 mls/hr IV Q24H [facility] Insulin Glargine (Insulin Glargine,Hum.Rec.Anlog 100 Unit/Ml 10 Ml Vial) 8 unit SUBCUT DAILY [facility] Last Admin: 09/26/22 08:13 Dose: 8 unit Documented By: KATHIE Insulin Human Lispro (Insulin Lispro 100 Unit/Ml 3 Ml Vial) 0 unit SUBCUT QIDACHS [facility]; Protocol Last Admin: 09/26/22 08:13 Dose: 4 unit Documented By: KATHIE Melatonin (Melatonin 3 Mg Tablet) 6 mg PO BEDTIME PRN PRN Reason: insomnia Last Admin: 09/25/22 20:30 Dose: 6 mg Documented By: BORIS Metformin HCl (Metformin Hcl 1,000 Mg Tablet) 1,000 mg PO BIDWM [facility] Last Admin: 09/26/22 08:14 Dose: 1,000 mg Documented By: KATHIE Ondansetron HCl (Ondansetron Hcl 4 Mg/2 Ml Vial) 4 mg IVPUSH Q8H PRN PRN Reason: Nausea and Vomiting Pharmacy Consult (Consult Rx Perform Med Rec) 1 each MISCELLANE ONCE PRN PRN Reason: Consult order Pharmacy Consult (Consult Rx Vancomycin Dosing) 1 each MISCELLANE DAILY PRN PRN Reason: Consult order Sertraline HCl (Sertraline Hcl 100 Mg Tablet) 100 mg PO DAILY [facility] Last Admin: 09/26/22 08:14 Dose: 100 mg Documented By: KATHIE Sodium Chloride (0.9 % Sodium Chloride Flush 3 Ml Syringe) 3 ml IVFLUSH QSHIFT [facility] Last Admin: 09/26/22 08:14 Dose: 3 ml Documented By: KATHIE Vitamin D (Cholecalciferol (Vitamin D3) 25 Mcg Tablet) 25 mcg PO DAILY [facility] Last Admin: 09/26/22 08:14 Dose: 25 mcg Documented By: KATHIE Labs 09/26/22 06:13 09/26/22 06:13 Labs: Laboratory Results - last 24 hr 09/25/22 09/25/22 09/26/22 11:17 19:47 06:13 MCV MCH MCHC RDW Plt Count MPV Absolute Nucleated RBC Nucleated RBC % (auto) Anion Gap Estim Creat Clear Calc Estimated GFR POC Glucose 341 H 315 H Random Glucose Calcium Vancomycin Trough 2.7 L 09/26/22 09/26/22 09/26/22 06:13 06:13 07:12 MCV 86.4 MCH 28.7 MCHC 33.2 RDW 14.0 Plt Count 222 MPV 10.4 Absolute Nucleated RBC 0.000 Nucleated RBC % (auto) 0.0 Anion Gap 13 Estim Creat Clear Calc 54.7 Estimated GFR > 60 POC Glucose 205 H Random Glucose 193 H Calcium 8.4 Vancomycin Trough Microbiology Microbiology Results: Microbiology 09/25/22 06:54 Blood Culture - Preliminary Blood - Venous Prelim: GPC Gram Stain only 09/25/22 06:54 Blood Culture - Preliminary Blood - Venous Prelim: GPC Gram Stain only 09/24/22 02:53 Blood Culture - Final Blood - Central Line Staphylococcus aureus 09/23/22 23:52 Blood Culture - Final Blood - Venous Staphylococcus aureus 09/23/22 23:40 Blood Culture - Final Blood - Venous Staphylococcus aureus 09/25/22 13:10 Gram Stain - Final Chest 09/24/22 13:49 Blood Culture - Preliminary Blood - Venous Prelim: GPC Gram Stain only 09/24/22 13:42 Blood Culture - Preliminary Blood - Venous Prelim: GPC Gram Stain only Procedures Date of Service Date of Service: 09/26/22 Progress Note: A&P Assessment and plan (1) Central line infection: Status: Acute (2) Staphylococcus aureus bacteremia: Status: Acute Plan Patient doing well. Continue dressing changes. Will follow p.r.n.. Time Spent With Patient Time: Total time managing care of this patient today ____ minutes. Quality Stroke Does the patient have a stroke diagnosis?: No VTE Prior VTE?: No VTE Risk Level:: Medical - moderate - high VTE Device Contraindication: Treatment Not Indicated VTE Drug Contraindication: N/A - Med Ordered
--- NOTE | 2022-09-26 10:43 | MHC.CM.PN ---
CM spoke with Daughter/HCP/Mitzi at listed # to determine Patient's VNA. Patient has had [facility] in the past but per Mitzi, [facility] is the goal ([facility] is first choice, then [facility] but NOT [facility]). CM will follow.
--- NOTE | 2022-09-26 11:01 | HO.PM.IMPN ---
Subjective Subjective Date of Service: 09/26/22 Interval History: Seen and evaluated this morning feels better this morning Permacath removed yesterday denies any fever or chills blood cultures positive for staph no other overnight events reported Review of Systems Review of Systems: Yes all other systems are reviewed and are negative Physical Exam Vital Signs: Vital Signs: Last Vital Signs Temp 98.9 F 09/26/22 07:12 Pulse 61 09/26/22 07:12 Resp 20 09/26/22 07:12 BP 119/58 L 09/26/22 07:12 Pulse Ox 95 09/26/22 07:12 O2 Del Method Room Air 09/26/22 07:12 BMI result Body Mass Index 27.0 Const: Other: Constitutional : Awake, interactive, not in distress Neck : Normal inspection, Supple Chest: site of removed Permacath with resolving erythema and tenderness Cardiovascular : RRR, no JVP, no lower extremity edema Respiratory : good bilateral air entry, no crackles, wheezes or rhonchi Gastrointestinal: soft, lax, Normal bowel sounds, Non tender Skin : Warm, Dry Neurological : Alert & oriented x3, No focal deficit , CN 2-12 within normal Objective Data Active Medications Acetaminophen (Acetaminophen 325 Mg Tablet) 650 mg PO Q6H PRN PRN Reason: Pain, Mild (Pain Scale 1-3) Acetaminophen (Acetaminophen 325 Mg Tablet) 650 mg PO Q6H PRN PRN Reason: Pain, Moderate (Pain Scale 4-6 Apixaban (Apixaban 2.5 Mg Tablet) 2.5 mg PO BID [facility] Last Admin: 09/26/22 08:14 Dose: 2.5 mg Documented By: KATHIE Atorvastatin Calcium (Atorvastatin Calcium 20 Mg Tablet) 20 mg PO DAILY [facility] Last Admin: 09/26/22 08:14 Dose: 20 mg Documented By: KATHIE Chlorpromazine HCl (Chlorpromazine Hcl 25 Mg Tablet) 50 mg PO BEDTIME [facility] Last Admin: 09/25/22 20:28 Dose: 50 mg Documented By: BORIS Cholestyramine Resin (Cholestyramine (With Sugar) 4 Gm Powd.Pack) 4 gm PO DAILY [facility] Last Admin: 09/26/22 09:15 Dose: 4 gm Documented By: KATHIE Clonazepam (Clonazepam 1 Mg Tablet) 1 mg PO BID [facility] Last Admin: 09/26/22 08:14 Dose: 1 mg Documented By: KATHIE Cyanocobalamin (Cyanocobalamin (Vitamin B-12) 1,000 Mcg Tablet) 1,000 mcg PO DAILY [facility] Last Admin: 09/26/22 08:14 Dose: 1,000 mcg Documented By: KATHIE Fentanyl (Fentanyl Citrate/Pf 100 Mcg/2 Ml Vial) 25 mcg IVPUSH Q5M PRN; Protocol PRN Reason: Pain, Moderate (Pain Scale 4-6 Folic Acid (Folic Acid 1 Mg Tablet) 1 mg PO DAILY [facility] Last Admin: 09/26/22 08:14 Dose: 1 mg Documented By: KATHIE Glucose (Glucose Gel 15 Gm Gel..Gram.) 15 gm PO Q15M PRN; Protocol PRN Reason: per Hypoglycemia Standing Ord. Piperacillin Sod/Tazobactam (Sod 3.375 gm/ Sodium Chloride) 50 mls @ 100 mls/hr IV Q6H [facility] Last Infusion: 09/26/22 09:13 Dose: 0 mls/hr Documented By: KATHIE Dextrose (D10) 250 mls @ 750 mls/hr IV Q15M PRN; Protocol PRN Reason: per Hypoglycemia Standing Ord. Vancomycin HCl 1,250 mg/ (Sodium Chloride) 250 mls @ 166.667 mls/hr IV Q24H [facility] Insulin Glargine (Insulin Glargine,Hum.Rec.Anlog 100 Unit/Ml 10 Ml Vial) 8 unit SUBCUT DAILY [facility] Last Admin: 09/26/22 08:13 Dose: 8 unit Documented By: KATHIE Insulin Human Lispro (Insulin Lispro 100 Unit/Ml 3 Ml Vial) 0 unit SUBCUT QIDACHS [facility]; Protocol Last Admin: 09/26/22 08:13 Dose: 4 unit Documented By: KATHIE Melatonin (Melatonin 3 Mg Tablet) 6 mg PO BEDTIME PRN PRN Reason: insomnia Last Admin: 09/25/22 20:30 Dose: 6 mg Documented By: BORIS Metformin HCl (Metformin Hcl 1,000 Mg Tablet) 1,000 mg PO BIDWM [facility] Last Admin: 09/26/22 08:14 Dose: 1,000 mg Documented By: KATHIE Ondansetron HCl (Ondansetron Hcl 4 Mg/2 Ml Vial) 4 mg IVPUSH Q8H PRN PRN Reason: Nausea and Vomiting Pharmacy Consult (Consult Rx Perform Med Rec) 1 each MISCELLANE ONCE PRN PRN Reason: Consult order Pharmacy Consult (Consult Rx Vancomycin Dosing) 1 each MISCELLANE DAILY PRN PRN Reason: Consult order Sertraline HCl (Sertraline Hcl 100 Mg Tablet) 100 mg PO DAILY [facility] Last Admin: 09/26/22 08:14 Dose: 100 mg Documented By: KATHIE Sodium Chloride (0.9 % Sodium Chloride Flush 3 Ml Syringe) 3 ml IVFLUSH QSHIFT [facility] Last Admin: 09/26/22 08:14 Dose: 3 ml Documented By: KATHIE Vitamin D (Cholecalciferol (Vitamin D3) 25 Mcg Tablet) 25 mcg PO DAILY [facility] Last Admin: 09/26/22 08:14 Dose: 25 mcg Documented By: KATHIE Labs 09/26/22 06:13 09/26/22 06:13 Labs: Laboratory Results - last 24 hr 09/25/22 09/25/22 09/26/22 11:17 19:47 06:13 MCV MCH MCHC RDW Plt Count MPV Absolute Nucleated RBC Nucleated RBC % (auto) Anion Gap Estim Creat Clear Calc Estimated GFR POC Glucose 341 H 315 H Random Glucose Calcium Vancomycin Trough 2.7 L 09/26/22 09/26/22 09/26/22 06:13 06:13 07:12 MCV 86.4 MCH 28.7 MCHC 33.2 RDW 14.0 Plt Count 222 MPV 10.4 Absolute Nucleated RBC 0.000 Nucleated RBC % (auto) 0.0 Anion Gap 13 Estim Creat Clear Calc 54.7 Estimated GFR > 60 POC Glucose 205 H Random Glucose 193 H Calcium 8.4 Vancomycin Trough Microbiology Microbiology Results: Microbiology 09/25/22 13:10 Gram Stain - Final Chest Routine Culture - Preliminary Staphylococcus aureus 09/25/22 06:54 Blood Culture - Preliminary Blood - Venous Prelim: GPC Gram Stain only 09/25/22 06:54 Blood Culture - Preliminary Blood - Venous Prelim: GPC Gram Stain only 09/24/22 02:53 Blood Culture - Final Blood - Central Line Staphylococcus aureus 09/23/22 23:52 Blood Culture - Final Blood - Venous Staphylococcus aureus 09/23/22 23:40 Blood Culture - Final Blood - Venous Staphylococcus aureus 09/24/22 13:49 Blood Culture - Preliminary Blood - Venous Prelim: GPC Gram Stain only 09/24/22 13:42 Blood Culture - Preliminary Blood - Venous Prelim: GPC Gram Stain only Assessment and Plan (1) Staphylococcus aureus bacteremia: Status: Acute (2) Central line infection: Status: Acute Plan 77-year-old female with past medical history that includes HTN HLD, recent MRI in June, JHONNY secondary to rhabdomyolysis in June that is now hemodialysis dependent with a PermCath in place presents to the hospital with weakness. Found to have multiple abnormalities. # MSSA bacteremia 2/2 PermCath site infection repeated cx positive, to repeat On Vancomycin DC Zosyn Surgery to removed Permacath pending ID consult follow vanco trough # questionable colitis CT scan showing mild colon wall thickening not convinving clinically with no evidence of pain or GI symptoms. DC Zosyn tolerating diet # Hx of hemodialysis did no t need HD for 2 weeks # Fall multifactorial PT/OT eval prior to discharge # DM/Hyperglycemia LDDSI hold oral antihyperglyceimics Diabetic diet # A flutter continue eliquis # HTN continue home antihypertensives DVT ppx: Eliquis Patient will need overnight hospital stay for treatment of bacteremia pending negative blood culture and placement Time Spent With Patient Time: Total time managing care of this patient today ____ minutes. Quality Stroke Does the patient have a stroke diagnosis?: No VTE Prior VTE?: No VTE Risk Level:: Medical - moderate - high VTE Device Contraindication: Treatment Not Indicated VTE Drug Contraindication: N/A - Med Ordered
[2022-09-26 11:37] VITALS: BP 118/59; PULSE 61; RESP 20; TEMP 37; O2SAT 96
[2022-09-26 11:40] LABS: Glucose, Whole Blood 259 mg/dL (60-115)
[2022-09-26 12:15] VITALS: O2SAT 95
--- NOTE | 2022-09-26 15:26 | W.PM.IDCN ---
History of Present Illness Data of Consult Service Date: 09/26/22 Requesting physician: Reggie Juarez Primary Care Provider: Nayan Pavon MD HPI Reason for consult: sepsis,MSSA She presents with weakness after falls at home. She denies fever or chills. She had stay in June and had JHONNY and rhabdomyolysis and sent home with right chest Permacath. Blood cultures MSSA. Permacath removed on 09/25. Review of Systems Review of Systems: Yes all other systems are reviewed and are negative [facility] Past Medical History Medical History Adjustment disorder with depressed mood Annual physical exam Annual physical exam Atherosclerotic cardiovascular disease Atrial flutter Frequency of micturition Generalized anxiety disorder History of CVA (cerebrovascular accident) Hypercholesterolemia Hypertension Hyponatremia Impacted cerumen of both ears Insomnia Obesity (BMI 30.0-34.9) Osteoarthrosis Overweight (BMI 25.0-29.9) Preop exam for internal medicine Preoperative cardiovascular examination Primary osteoarthritis of left knee Second degree AV block Tobacco abuse Type 2 diabetes mellitus with hyperglycemia Family History Family History Father Cancer Mother Medical history unknown Brother Liver cancer Sister Hypertension COPD (chronic obstructive pulmonary disease) Family history: reviewed and not pertinent Surgical History Surgical History H/O breast reconstruction History of cholecystectomy History of hip replacement History of tonsillectomy Social History Social History Household Members: None Housing: Apartment Do you presently have visiting nurse or other home services: No Alcohol intake: never Patient Tobacco Use Status: Former Tobacco user Quit Date: 06/2022 Tobacco use type: Cigarette Cigarettes Per Day: 2 Smoked in Last 30 Days: No e-Cigarette/Vaping Use: Never Used Patient Interested in Nicotine Replacement: No Second Hand Smoke Exposure: No Use of substances other than those prescribed or required for medical reasons: No Currently Displaying Signs/Symptoms of Drug Intoxication Withdrawal: No Have you been hit, kicked, punched, or otherwise hurt by someone within the past year? If so, by whom?: No Do you feel safe in your current relationship?: No Current Relationship Is there a partner from a previous relationship who is making you feel unsafe now?: No Are you made to feel afraid or neglected: No Advance Directives: No Advance Directives Information Provided: No Do you have thoughts of harming others: None Do you have a plan to hurt others: No Plan Recently lost weight without trying: No Nutrition Risks: No Nutritional Risk Patient : No : No Poor oral hygiene: No service: No Current occupational status: retired Current occupation: Right Handed Cognitive needs: No Hearing needs: No Vision needs: Yes Meds Allergies Allergy/AdvReac Type Severity Reaction Status Date / Time No Known Allergies Allergy Verified 08/05/22 12:37 [No Known Allergies*] Active Medications: Current Medications Acetaminophen (Acetaminophen 325 Mg Tablet) 650 mg PO Q6H PRN PRN Reason: Pain, Mild (Pain Scale 1-3) Acetaminophen (Acetaminophen 325 Mg Tablet) 650 mg PO Q6H PRN PRN Reason: Pain, Moderate (Pain Scale 4-6 Apixaban (Apixaban 2.5 Mg Tablet) 2.5 mg PO BID [facility] Last Admin: 09/26/22 08:14 Dose: 2.5 mg Atorvastatin Calcium (Atorvastatin Calcium 20 Mg Tablet) 20 mg PO DAILY [facility] Last Admin: 09/26/22 08:14 Dose: 20 mg Chlorpromazine HCl (Chlorpromazine Hcl 25 Mg Tablet) 50 mg PO BEDTIME [facility] Last Admin: 09/25/22 20:28 Dose: 50 mg Cholestyramine Resin (Cholestyramine (With Sugar) 4 Gm Powd.Pack) 4 gm PO DAILY [facility] Last Admin: 09/26/22 09:15 Dose: 4 gm Clonazepam (Clonazepam 1 Mg Tablet) 1 mg PO BID [facility] Last Admin: 09/26/22 08:14 Dose: 1 mg Cyanocobalamin (Cyanocobalamin (Vitamin B-12) 1,000 Mcg Tablet) 1,000 mcg PO DAILY [facility] Last Admin: 09/26/22 08:14 Dose: 1,000 mcg Fentanyl (Fentanyl Citrate/Pf 100 Mcg/2 Ml Vial) 25 mcg IVPUSH Q5M PRN; Protocol PRN Reason: Pain, Moderate (Pain Scale 4-6 Folic Acid (Folic Acid 1 Mg Tablet) 1 mg PO DAILY [facility] Last Admin: 09/26/22 08:14 Dose: 1 mg Glucose (Glucose Gel 15 Gm Gel..Gram.) 15 gm PO Q15M PRN; Protocol PRN Reason: per Hypoglycemia Standing Ord. Dextrose (D10) 250 mls @ 750 mls/hr IV Q15M PRN; Protocol PRN Reason: per Hypoglycemia Standing Ord. Vancomycin HCl 1,250 mg/ (Sodium Chloride) 250 mls @ 166.667 mls/hr IV Q24H [facility] Insulin Glargine (Insulin Glargine,Hum.Rec.Anlog 100 Unit/Ml 10 Ml Vial) 8 unit SUBCUT DAILY [facility] Last Admin: 09/26/22 08:13 Dose: 8 unit Insulin Human Lispro (Insulin Lispro 100 Unit/Ml 3 Ml Vial) 0 unit SUBCUT QIDACHS [facility]; Protocol Last Admin: 09/26/22 11:51 Dose: 6 unit Melatonin (Melatonin 3 Mg Tablet) 6 mg PO BEDTIME PRN PRN Reason: insomnia Last Admin: 09/25/22 20:30 Dose: 6 mg Metformin HCl (Metformin Hcl 1,000 Mg Tablet) 1,000 mg PO BIDWM [facility] Last Admin: 09/26/22 08:14 Dose: 1,000 mg Ondansetron HCl (Ondansetron Hcl 4 Mg/2 Ml Vial) 4 mg IVPUSH Q8H PRN PRN Reason: Nausea and Vomiting Pharmacy Consult (Consult Rx Perform Med Rec) 1 each MISCELLANE ONCE PRN PRN Reason: Consult order Pharmacy Consult (Consult Rx Vancomycin Dosing) 1 each MISCELLANE DAILY PRN PRN Reason: Consult order Sertraline HCl (Sertraline Hcl 100 Mg Tablet) 100 mg PO DAILY [facility] Last Admin: 09/26/22 08:14 Dose: 100 mg Sodium Chloride (0.9 % Sodium Chloride Flush 3 Ml Syringe) 3 ml IVFLUSH QSHIFT [facility] Last Admin: 09/26/22 08:14 Dose: 3 ml Vitamin D (Cholecalciferol (Vitamin D3) 25 Mcg Tablet) 25 mcg PO DAILY [facility] Last Admin: 09/26/22 08:14 Dose: 25 mcg Home Medications Medication Instructions Recorded Confirmed Last Taken Type metformin 1,000 mg tablet 1,000 mg PO BIDWMEAL 08/05/22 09/24/22 09/23/22 History chlorpromazine 50 mg tablet 50 mg PO BEDTIME 04/02/0809/24/22 09/23/22 History cholestyramine-aspartame 4 gram 1 ea PO DAILY diarrhea 09/24/22 09/24/22 09/23/22 History oral powder (Cholestyramine Light) clonazepam 1 mg tablet 1 mg PO BID 09/24/22 09/24/22 Unknown History sertraline 100 mg tablet 100 mg PO DAILY 09/24/22 09/24/22 09/23/22 History Physical Exam Vital Signs: Vital Signs: Last Vital Signs Temp 98.6 F 09/26/22 11:37 Pulse 61 09/26/22 11:37 Resp 20 09/26/22 11:37 BP 118/59 L 09/26/22 11:37 Pulse Ox 95 09/26/22 12:15 O2 Del Method Room Air 09/26/22 12:15 BMI result Body Mass Index 27.0 Const: General: cooperative HEENT: Head: Yes normal to inspection Face and sinus: Yes normal facial exam Mouth: Normal oral and palatal mucosa present Teeth and gingiva: dentition normal Eyes: General: appearance normal, both eyes and all related structures Pupils: Equal, round and reactive pupils present Resp: Effort & Inspection: normal respiratory effort Cardio: Rate: regular rate Rhythm: regular rhythm GI: Palpation (GI): Soft to palpation and nontender : General: Yes no CVA tenderness Back/Spine/Pelvis: Back: no CVA tenderness Skin: Other: right chest wall redness resolving General skin exam: no rashes or lesions noted Neuro: Other: weakness all extremities General: moves all extremities Cranial nerves: Yes Equal, round and reactive pupils present Extrem: General: Yes normal to inspection Psych: Appearance: grossly normal Results Labs 09/26/22 06:13 09/26/22 06:13 Labs: Short CBC 09/26/22 Range/Units 06:13 WBC 9.4 (4.8-10.8) X10*3/uL Hgb 10.1 L (12.0-16.0) g/dl Hct 30.4 L (37.0-47.0) % Plt Count 222 (160-400) X10*3/uL BMP 09/26/22 06:13 Sodium 135 Potassium 3.8 Chloride 107 Carbon Dioxide 19 L BUN 18 H Creatinine 0.91 Calcium 8.4 Microbiology Microbiology Results: Microbiology 09/24/22 13:49 Blood - Venous Blood Culture - Final Staphylococcus aureus 09/24/22 13:42 Blood - Venous Blood Culture - Final Staphylococcus aureus 09/25/22 13:10 Chest Gram Stain - Final 09/25/22 13:10 Chest Routine Culture - Preliminary Staphylococcus aureus 09/25/22 06:54 Blood - Venous Blood Culture - Preliminary Prelim: GPC Gram Stain only 09/25/22 06:54 Blood - Venous Blood Culture - Preliminary Prelim: GPC Gram Stain only 09/24/22 02:53 Blood - Central Line Blood Culture - Final Staphylococcus aureus 09/23/22 23:52 Blood - Venous Blood Culture - Final Staphylococcus aureus 09/23/22 23:40 Blood - Venous Blood Culture - Final Staphylococcus aureus Assessment and Plan (1) Staphylococcus aureus bacteremia: Status: Acute She has MSSA bacteremia likely from central line,needing HD She has no other metastatic areas seen of infection. (2) Central line infection: Status: Acute Plan Would give Kefzol for four weeks. Check echo. If remaining on dialysis can dose 2 g after dialysis. Time Spent With Patient Time: Total time managing care of this patient today ____ minutes.
[2022-09-26 15:27] VITALS: BP 127/66; PULSE 56; RESP 20; TEMP 36.9; O2SAT 97
[2022-09-26 16:58] LABS: Glucose, Whole Blood 223 mg/dL (60-115)
[2022-09-26] MEDS: Acetaminophen 325 MG TABLET 650 MG PO (17:20)
[2022-09-26 19:08] VITALS: BP 153/66; PULSE 59; RESP 20; TEMP 37.1; O2SAT 97
[2022-09-26 20:54] LABS: Glucose, Whole Blood 235 mg/dL (60-115)
[2022-09-26] MEDS: chlorproMAZINE HCl 25 MG TABLET 50 MG PO (21:23)
[2022-09-27] VITALS (8 sets, daily range): BP systolic 122–181; BP diastolic 56–98; PULSE 54–68; RESP 18–20; TEMP 36.1–37.3; O2SAT 93–97; BMI 26.0
[2022-09-27 05:56] LABS: Hematocrit 29.5 % (37.0-47.0); Hemoglobin 9.7 g/dl (12.0-16.0); Mean Corpuscular HGB Conc 32.9 g/dl (31.0-35.0); Mean Corpuscular Hemoglobin 28.5 pg (27.0-33.0); Mean Corpuscular Volume 86.8 fL (80.0-98.0); Mean Platelet Volume 10.2 fL (9.4-12.3); Platelet Count 260 X10*3/uL (160-400); White Blood Count 8.3 X10*3/uL (4.8-10.8)
[2022-09-27 06:19] LABS: Anion Gap 10 (12-20); Blood Urea Nitrogen 17 mg/dL (9-16); Calcium 8.7 mg/dL (8.4-10.2); Carbon Dioxide 22 mmol/L (22-29); Chloride 109 mmol/L (96-108); Estimated Glomerular Filt Rate > 60; Glucose Random 144 mg/dL (60-115); Sodium 137 mmol/L (135-145)
--- NOTE | 2022-09-27 07:00 | CA_ITS ---
Transthoracic Echocardiogram Patient (Last, First, Middle): Jennifer English K Gender: Female Date of : 1945 Age: 77 Procedure Date: 09/27/2022 Procedure Type: Transthoracic Echocardiogram Location: [facility] [place] Height: 167.64 cm Weight: 73.03 kg BSA: 1.82 m2 Heart Rate: 53 bpm BP: 162 / 68 mmHg Project Engineer: SB Referring MD: Reggie Juarez MD Interior Assemblies Developer Prover: David Stone MD Symptoms: Staph bacteremia R O vegetations Study Quality: Adequate ECG Rhythm: Bradycardia Conclusions: - 1. Normal LV systolic function with impaired relaxation filling pattern 2. Trivial aortic regurgitation 3. No obvious vegetations on this study 4. No gross pericardial effusion Findings Left Ventricle Normal left ventricular size, thickness, and systolic function. The visually estimated ejection fraction is between 60-65%. Spectral Doppler is indicative of an impaired relaxation filling pattern. E/E prime ratio is between 8 and 15 consistent with indeterminate filling pressures. Wall Motion Rest Echo Findings The basal inferior segment is akinetic. All other scored wall segments showed normal motion. Right Ventricle Normal right ventricular cavity size. There is mildly decreased right ventricular systolic function. Atria The left atrium is mildly dilated. There is lipomatous hypertrophy of the interatrial septum. There is no evidence of interatrial shunt. The right atrium is normal in size. Aortic Valve There is mild calcification of the aortic valve. There is no aortic valve stenosis. There is trace (trivial) aortic valve regurgitation. Mitral Valve There is mild anterior and posterior mitral leaflet thickening. There is trace mitral valve regurgitation. There is no mitral valve stenosis. Pulmonic Valve The pulmonic valve was not well visualized. Tricuspid Valve Likely normal tricuspid valve structure and function. Tricuspid regurgitation envelope is inadequate for calculation of right ventricular systolic pressure. Normal right atrial pressure. Great Vessels All visible segments of the aorta are normal in size. The pulmonary artery was not well visualized. Venous The inferior vena cava is normal in size and collapses greater than 50% with inspiration. Pericardium/Pleural There is no evidence of pericardial effusion. Recommendations, Care & Conclusions Consider a LEONEL if clinically appropriate. Measurements 2D Linear Measurements IVSd: 0.47 0.6-0.9/0.6-1.0 cm LVIDd: 5.23 3.9-5.3/4.2-5.9 cm LVIDd Index: 2.87 2.4-3.2/2.2-3.1 cm/m2 LVIDs: 4.04 2.0-3.6 cm LVPWd: 0.72 0.7-1.1 cm LA Diam: 3.60 2.7-3.8/3.0-4.0 cm LAIDs Index: 1.98 1.5-2.3 cm/m2 LV Mass: 126.16 67-162/88-224 g LV Mass Index: 69.32 43-95/49-115 g/m2 LVOT Diam: 1.90 3.0+(-)1.3 cm 2D Systolic Function EF 4C: 56.20 >55% EF 2C: 64.20 >55% EF BiP: 61.80 >55% Mitral Valve MV Pk E: 0.74 MV PK A: 0.84 MV Decel Time: 225.00 E/A: 0.90 E'Lateral: 6.85 E'Medial: 5.77 E/E' Med: 12.80 E/E' Lat: 10.80 PHT: 66.00 MVA PHT: 3.33 Decel [place]: 3.27 Aortic Valve AoV Pk Donell: 1.65 AoV Pk Grad: 11.00 SAMIRA: 2.03 LVOT LVOT Pk Donell: 1.15 LVOT Mn Don[place]: 0.76 LVOT VTI: 0.22 LVOT Pk Grad: 5.00 LVOT Mn Grad: 3.00 LVOT Diam: 1.90 LVOT Area: 2.84 Diastolic Function MV Pk E: 0.74 MV Pk A: 0.84 E/A: 0.90 E'Medial: 5.77 E/E' Med: 12.80 E' Laterial: 6.85 E/E' Lat: 10.80 Right Ventricle TAPSE (mm): 14.60 TVS' Donell: 17.40 Tricuspid Valve RA Press: 3.00 Great Vessels Aorta Sinus of Valsalva: 2.90 2.0-3.5 cm Ao Asc: 3.30 2.1-3.4 cm Pulmonary Veins Pulm Vein S/D 1.80 Pulmonary Valve PV Pk Donell: 0.92 Peak PV Grad: 3.00 Updated in Other Vendor System with Status of Final David Stone MD electronically signed on 09/27/2022 3:55:49 PM with status of Final
--- NOTE | 2022-09-27 07:16 | HE.PHANOTE ---
Vancomycin Dosing Renal function stable. Continue current regimen. Next level 09/28 @ 0700. Chepe FentonD
--- NOTE | 2022-09-27 07:34 | P.CDIM_ITS ---
PROVIDER RESPONSE TEXT: To clarify, the appropriate diagnosis supported by the clinical indicators: Sepsis QUERY TEXT: PHYSICIAN'S DOCUMENTATION REQUEST Date of Query: 09/26/2022 12:13 PM EDT Patient Name: Jennifer English Admit Date: 09/24/2022 Dear Reggie Juarez, A review of the medical record indicates additional documentation may be needed. Please review below and update the documentation accordingly. Clinical Indicators: WBC 21.9 LA 2.2 heart rate 94 treated with IV Vancomycin for Perma cath line infection Please clarify which, if any, of the following is the most likely etiology of the above symptoms and treatment rendered: Sepsis Localized infection only, without systemic illness Bacteremia (abnormal lab finding only, does not indicate systemic illness) Other (explain) Clinically unable to determine (explain) Thank you, Jennyfer Cruz RN Use of terms such as suspected, likely, concern for, or probable (associated with a specific diagnosi s that is being evaluated, monitored, or treated as if it exists) are acceptable and can be coded in the inpatient se tting, when documented at the time of discharge. Please use your independent medical judgment in providing your response. THIS QUERY IS PART OF THE PERMANENT MEDICAL RECORD
[2022-09-27 08:02] LABS: Glucose, Whole Blood 167 mg/dL (60-115)
[2022-09-27] MEDS: ceFAZolin Sodium/Dextrose,Iso 2 GM/50 ML PIGGYBACK IV ×2 (09:13→15:34)
[2022-09-27] MEDS: Cholecalciferol (Vitamin D3) 25 MCG TABLET PO (09:14)
[2022-09-27] MEDS: Sertraline HCL 100 MG TABLET PO (09:14)
[2022-09-27] MEDS: metFORMIN HCl 1,000 MG TABLET 1000 MG PO ×2 (09:14→16:47)
[2022-09-27] MEDS: Cyanocobalamin (Vitamin B-12) 1,000 MCG TABLET 1000 MCG PO (09:14)
[2022-09-27] MEDS: clonazePAM 1 MG TABLET PO ×2 (09:14→21:37)
[2022-09-27] MEDS: Cholestyramine (With Sugar) 4 GM POWD.PACK PO (09:14)
[2022-09-27] MEDS: Apixaban 2.5 MG TABLET PO ×2 (09:14→21:37)
[2022-09-27] MEDS: Atorvastatin Calcium 20 MG TABLET PO (09:14)
[2022-09-27] MEDS: Folic Acid 1 MG TABLET PO (09:14)
[2022-09-27] MEDS: Insulin Lispro 100 UNIT/ML 3 ML VIAL SUBCUT ×4 (09:33→21:37)
[2022-09-27] MEDS: Insulin Glargine,Hum.rec.anlog 100 UNIT/ML 10 ML VIAL 8 UNIT SUBCUT (09:33)
[2022-09-27] MEDS: Acetaminophen 325 MG TABLET 650 MG PO (09:39)
[2022-09-27 11:27] LABS: Glucose, Whole Blood 302 mg/dL (60-115)
--- NOTE | 2022-09-27 13:06 | HO.PM.IMPN ---
Subjective Subjective Date of Service: 09/27/22 Interval History: Seen and evaluated this morning feels better overall Permacath removed yesterday denies any fever or chills repeated blood cultures positive for staph no other overnight events reported Review of Systems Review of Systems: Yes all other systems are reviewed and are negative Physical Exam Vital Signs: Vital Signs: Last Vital Signs Temp 98.0 F 09/27/22 11:19 Pulse 60 09/27/22 11:19 Resp 18 09/27/22 11:19 BP 158/69 H 09/27/22 11:19 Pulse Ox 97 09/27/22 11:21 O2 Del Method Room Air 09/27/22 11:21 BMI result Body Mass Index 26.0 Const: Other: Constitutional : Awake, interactive, not in distress Neck : Normal inspection, Supple Chest: site of removed Permacath with resolving erythema and tenderness Cardiovascular : RRR, no JVP, no lower extremity edema Respiratory : good bilateral air entry, no crackles, wheezes or rhonchi Gastrointestinal: soft, lax, Normal bowel sounds, Non tender Skin : Warm, Dry Neurological : Alert & oriented x3, No focal deficit , CN 2-12 within normal Objective Data Active Medications Acetaminophen (Acetaminophen 325 Mg Tablet) 650 mg PO Q6H PRN PRN Reason: Pain, Mild (Pain Scale 1-3) Last Admin: 09/27/22 09:39 Dose: 650 mg Documented By: JUAN CARLOS Acetaminophen (Acetaminophen 325 Mg Tablet) 650 mg PO Q6H PRN PRN Reason: Pain, Moderate (Pain Scale 4-6 Apixaban (Apixaban 2.5 Mg Tablet) 2.5 mg PO BID [facility] Last Admin: 09/27/22 09:14 Dose: 2.5 mg Documented By: JUAN CARLOS Atorvastatin Calcium (Atorvastatin Calcium 20 Mg Tablet) 20 mg PO DAILY [facility] Last Admin: 09/27/22 09:14 Dose: 20 mg Documented By: JUAN CARLOS Chlorpromazine HCl (Chlorpromazine Hcl 25 Mg Tablet) 50 mg PO BEDTIME [facility] Last Admin: 09/26/22 21:23 Dose: 50 mg Documented By: JUANA Cholestyramine Resin (Cholestyramine (With Sugar) 4 Gm Powd.Pack) 4 gm PO DAILY [facility] Last Admin: 09/27/22 09:14 Dose: 4 gm Documented By: JUAN CARLOS Clonazepam (Clonazepam 1 Mg Tablet) 1 mg PO BID [facility] Last Admin: 09/27/22 09:14 Dose: 1 mg Documented By: JUAN CARLOS Cyanocobalamin (Cyanocobalamin (Vitamin B-12) 1,000 Mcg Tablet) 1,000 mcg PO DAILY [facility] Last Admin: 09/27/22 09:14 Dose: 1,000 mcg Documented By: JUAN CARLOS Fentanyl (Fentanyl Citrate/Pf 100 Mcg/2 Ml Vial) 25 mcg IVPUSH Q5M PRN; Protocol PRN Reason: Pain, Moderate (Pain Scale 4-6 Folic Acid (Folic Acid 1 Mg Tablet) 1 mg PO DAILY [facility] Last Admin: 09/27/22 09:14 Dose: 1 mg Documented By: JUAN CARLOS Glucose (Glucose Gel 15 Gm Gel..Gram.) 15 gm PO Q15M PRN; Protocol PRN Reason: per Hypoglycemia Standing Ord. Dextrose (D10) 250 mls @ 750 mls/hr IV Q15M PRN; Protocol PRN Reason: per Hypoglycemia Standing Ord. Cefazolin Sodium/Dextrose (Ancef) 2 gm in 50 mls @ 100 mls/hr IV Q8H [facility] Last Infusion: 09/27/22 09:44 Dose: 0 mls/hr Documented By: JUAN CARLOS Insulin Glargine (Insulin Glargine,Hum.Rec.Anlog 100 Unit/Ml 10 Ml Vial) 8 unit SUBCUT DAILY [facility] Last Admin: 09/27/22 09:33 Dose: 8 unit Documented By: JUAN CARLOS Insulin Human Lispro (Insulin Lispro 100 Unit/Ml 3 Ml Vial) 0 unit SUBCUT QIDACHS [facility]; Protocol Last Admin: 09/27/22 11:55 Dose: 8 unit Documented By: JUAN CARLOS Melatonin (Melatonin 3 Mg Tablet) 6 mg PO BEDTIME PRN PRN Reason: insomnia Last Admin: 09/25/22 20:30 Dose: 6 mg Documented By: BORIS Metformin HCl (Metformin Hcl 1,000 Mg Tablet) 1,000 mg PO BIDWM [facility] Last Admin: 09/27/22 09:14 Dose: 1,000 mg Documented By: JUAN CARLOS Ondansetron HCl (Ondansetron Hcl 4 Mg/2 Ml Vial) 4 mg IVPUSH Q8H PRN PRN Reason: Nausea and Vomiting Pharmacy Consult (Consult Rx Perform Med Rec) 1 each MISCELLANE ONCE PRN PRN Reason: Consult order Sertraline HCl (Sertraline Hcl 100 Mg Tablet) 100 mg PO DAILY [facility] Last Admin: 09/27/22 09:14 Dose: 100 mg Documented By: JUAN CARLOS Sodium Chloride (0.9 % Sodium Chloride Flush 3 Ml Syringe) 3 ml IVFLUSH QSHIFT [facility] Last Admin: 09/27/22 07:21 Dose: Not Given Documented By: JUAN CARLOS Non-Admin Reason: See Note Vitamin D (Cholecalciferol (Vitamin D3) 25 Mcg Tablet) 25 mcg PO DAILY [facility] Last Admin: 09/27/22 09:14 Dose: 25 mcg Documented By: JUAN CARLOS Labs 09/27/22 05:26 09/27/22 05:26 Labs: Laboratory Results - last 24 hr 09/26/22 09/26/22 09/27/22 16:35 19:12 05:26 MCV 86.8 MCH 28.5 MCHC 32.9 RDW 14.0 Plt Count 260 MPV 10.2 Absolute Nucleated RBC 0.000 Nucleated RBC % (auto) 0.0 Anion Gap Estim Creat Clear Calc Estimated GFR POC Glucose 223 H 235 H Random Glucose Calcium 09/27/22 09/27/22 09/27/22 05:26 07:37 11:20 MCV MCH MCHC RDW Plt Count MPV Absolute Nucleated RBC Nucleated RBC % (auto) Anion Gap 10 L Estim Creat Clear Calc 62.0 Estimated GFR > 60 POC Glucose 167 H 302 H Random Glucose 144 H Calcium 8.7 Microbiology Microbiology Results: Microbiology 09/26/22 08:35 Blood Culture - Preliminary Blood - Venous Prelim: GPC Gram Stain only 09/26/22 08:34 Blood Culture - Preliminary Blood - Venous Prelim: GPC Gram Stain only 09/25/22 06:54 Blood Culture - Final Blood - Venous Staphylococcus aureus 09/25/22 06:54 Blood Culture - Final Blood - Venous Staphylococcus aureus 09/25/22 13:10 Gram Stain - Final Chest Routine Culture - Preliminary Staphylococcus aureus 09/24/22 13:49 Blood Culture - Final Blood - Venous Staphylococcus aureus 09/24/22 13:42 Blood Culture - Final Blood - Venous Staphylococcus aureus Assessment and Plan (1) Staphylococcus aureus bacteremia: Status: Acute (2) Central line infection: Status: Acute Plan 77-year-old female with past medical history that includes HTN HLD, recent MRI in June, JHONNY secondary to rhabdomyolysis in June that is now hemodialysis dependent with a PermCath in place presents to the hospital with weakness. Found to have multiple abnormalities. # persistent MSSA bacteremia 2/2 PermCath site infection repeated cx positive, to repeat DC Vancomycin start Cefazolin Surgery to removed Permacath ID consult, IV Cefazolin for 4 weeks check ECHO # abnormal CT abd questionable colitis CT scan showing mild colon wall thickening not convinving clinically with no evidence of pain or GI symptoms. DC Zosyn tolerating diet # Hx of hemodialysis did not need HD for 2 weeks, no need for dialysis cath # Fall multifactorial PT eval # DM/Hyperglycemia LDDSI hold oral antihyperglyceimics Diabetic diet # A flutter continue eliquis # HTN continue home antihypertensives DVT ppx: Eliquis Patient will need overnight hospital stay for treatment of bacteremia pending negative blood culture and placement Time Spent With Patient Time: Total time managing care of this patient today ____ minutes. Quality Stroke Does the patient have a stroke diagnosis?: No VTE Prior VTE?: No VTE Risk Level:: Medical - moderate - high VTE Device Contraindication: Treatment Not Indicated VTE Drug Contraindication: N/A - Med Ordered
[2022-09-27 16:08] LABS: Glucose, Whole Blood 260 mg/dL (60-115)
[2022-09-27 19:55] LABS: Glucose, Whole Blood 223 mg/dL (60-115)
[2022-09-27] MEDS: chlorproMAZINE HCl 25 MG TABLET 50 MG PO (21:37)
[2022-09-28] VITALS (8 sets, daily range): BP systolic 161–190; BP diastolic 59–81; PULSE 53–65; RESP 16–20; TEMP 36.1–37; O2SAT 92–98; BMI 25.4
[2022-09-28] MEDS: ceFAZolin Sodium/Dextrose,Iso 2 GM/50 ML PIGGYBACK IV ×3 (00:31→15:26)
[2022-09-28] MEDS: 0.9 % Sodium Chloride Flush 3 ML SYRINGE IVFLUSH ×4 (00:34→20:42)
[2022-09-28] MEDS: Acetaminophen 325 MG TABLET 650 MG PO (05:13)
[2022-09-28] MEDS: hydrALAZINE HCl 20 MG/ML VIAL 5 MG IVPUSH (05:46)
[2022-09-28 07:27] LABS: Vancomycin Trough 5.2 mcg/mL (10.0-20.0)
[2022-09-28 07:28] LABS: Anion Gap 12 (12-20); Blood Urea Nitrogen 16 mg/dL (9-16); Calcium 8.9 mg/dL (8.4-10.2); Carbon Dioxide 22 mmol/L (22-29); Chloride 106 mmol/L (96-108); Creatinine Clr Calc Pharmacy 67.2; Estimated Glomerular Filt Rate > 60; Glucose Random 173 mg/dL (60-115); Potassium 3.6 mmol/L (3.3-5.1); Sodium 136 mmol/L (135-145)
[2022-09-28 07:29] LABS: Creatinine Clr Calc Pharmacy 65.5; Estimated Glomerular Filt Rate > 60
[2022-09-28 07:51] LABS: Glucose, Whole Blood 173 mg/dL (60-115)
[2022-09-28] MEDS: metFORMIN HCl 1,000 MG TABLET 1000 MG PO ×2 (08:37→16:53)
[2022-09-28] MEDS: clonazePAM 1 MG TABLET PO ×2 (08:37→20:39)
[2022-09-28] MEDS: Folic Acid 1 MG TABLET PO (08:37)
[2022-09-28] MEDS: Atorvastatin Calcium 20 MG TABLET PO (08:37)
[2022-09-28] MEDS: Apixaban 2.5 MG TABLET PO ×2 (08:37→20:39)
[2022-09-28] MEDS: Cholecalciferol (Vitamin D3) 25 MCG TABLET PO (08:37)
[2022-09-28] MEDS: Sertraline HCL 100 MG TABLET PO (08:37)
[2022-09-28] MEDS: Cyanocobalamin (Vitamin B-12) 1,000 MCG TABLET 1000 MCG PO (08:37)
[2022-09-28] MEDS: Insulin Glargine,Hum.rec.anlog 100 UNIT/ML 10 ML VIAL 8 UNIT SUBCUT (08:38)
[2022-09-28] MEDS: Insulin Lispro 100 UNIT/ML 3 ML VIAL SUBCUT ×3 (08:38→16:53)
[2022-09-28] MEDS: Cholestyramine (With Sugar) 4 GM POWD.PACK PO (08:51)
--- NOTE | 2022-09-28 09:14 | MHC.CM.PN ---
EMR REVIEWED, PT W/BACTEREMIA IN NEED OF 4WKS IV CEFAZOLIN, CURRENTLY RECEIVING 2GMS Q8HRS, BC'S ARE PENDING, ONCE NEGATIVE PT WILL NEED MID/PICC LINE PLACED PRIOR TO D/C TO [facility], [facility] FOLLOWING, CM WILL CONT TO FOLLOW D/C NEEDS.
[2022-09-28 11:14] LABS: Glucose, Whole Blood 250 mg/dL (60-115)
--- NOTE | 2022-09-28 11:49 | P.PNIM_ITS ---
Subjective Subjective Date of Service: 09/28/22 Interval History: poor sleep Physical Exam Vital Signs: Vital Signs: Last Vital Signs Temp 97.0 F 09/28/22 10:48 Pulse 56 09/28/22 10:48 Resp 17 09/28/22 10:48 BP 172/66 H 09/28/22 10:48 Pulse Ox 97 09/28/22 11:12 O2 Del Method Room Air 09/28/22 11:12 BMI result Body Mass Index 25.4 General: AO X 3, no acute distress Resp: CTA bilateral, no accessory muscles used CVS: S1,S2,RRR GI: soft, non tender, non distended Neuro: motor grossly intact, alert Psych: appropriate affect, appropriate insight Objective Data Active Medications Acetaminophen (Acetaminophen 325 Mg Tablet) 650 mg PO Q6H PRN PRN Reason: Pain, Mild (Pain Scale 1-3) Last Admin: 09/27/22 09:39 Dose: 650 mg Documented By: ANAHI-SOFFA Acetaminophen (Acetaminophen 325 Mg Tablet) 650 mg PO Q6H PRN PRN Reason: Pain, Moderate (Pain Scale 4-6 Last Admin: 09/28/22 05:13 Dose: 650 mg Documented By: NAFLAKOOC Apixaban (Apixaban 2.5 Mg Tablet) 2.5 mg PO BID [facility] Last Admin: 09/28/22 08:37 Dose: 2.5 mg Documented By: BRANDEN Atorvastatin Calcium (Atorvastatin Calcium 20 Mg Tablet) 20 mg PO DAILY [facility] Last Admin: 09/28/22 08:37 Dose: 20 mg Documented By: BRANDEN Chlorpromazine HCl (Chlorpromazine Hcl 25 Mg Tablet) 50 mg PO BEDTIME [facility] Last Admin: 09/27/22 21:37 Dose: 50 mg Documented By: DIAZDEM Cholestyramine Resin (Cholestyramine (With Sugar) 4 Gm Powd.Pack) 4 gm PO DAILY [facility] Last Admin: 09/28/22 08:51 Dose: 4 gm Documented By: BRANDEN Clonazepam (Clonazepam 1 Mg Tablet) 1 mg PO BID [facility] Last Admin: 09/28/22 08:37 Dose: 1 mg Documented By: BRANDEN Cyanocobalamin (Cyanocobalamin (Vitamin B-12) 1,000 Mcg Tablet) 1,000 mcg PO DAILY [facility] Last Admin: 09/28/22 08:37 Dose: 1,000 mcg Documented By: BRANDEN Fentanyl (Fentanyl Citrate/Pf 100 Mcg/2 Ml Vial) 25 mcg IVPUSH Q5M PRN; Protocol PRN Reason: Pain, Moderate (Pain Scale 4-6 Folic Acid (Folic Acid 1 Mg Tablet) 1 mg PO DAILY [facility] Last Admin: 09/28/22 08:37 Dose: 1 mg Documented By: BRANDEN Glucose (Glucose Gel 15 Gm Gel..Gram.) 15 gm PO Q15M PRN; Protocol PRN Reason: per Hypoglycemia Standing Ord. Dextrose (D10) 250 mls @ 750 mls/hr IV Q15M PRN; Protocol PRN Reason: per Hypoglycemia Standing Ord. Cefazolin Sodium/Dextrose (Ancef) 2 gm in 50 mls @ 100 mls/hr IV Q8H [facility] Last Infusion: 09/28/22 09:28 Dose: 0 mls/hr Documented By: BRANDEN Insulin Glargine (Insulin Glargine,Hum.Rec.Anlog 100 Unit/Ml 10 Ml Vial) 8 unit SUBCUT DAILY [facility] Last Admin: 09/28/22 08:38 Dose: 8 unit Documented By: BRANDEN Insulin Human Lispro (Insulin Lispro 100 Unit/Ml 3 Ml Vial) 0 unit SUBCUT QIDACHS [facility]; Protocol Last Admin: 09/28/22 08:38 Dose: 2 unit Documented By: BRANDEN Melatonin (Melatonin 3 Mg Tablet) 6 mg PO BEDTIME PRN PRN Reason: insomnia Last Admin: 09/25/22 20:30 Dose: 6 mg Documented By: BORIS Metformin HCl (Metformin Hcl 1,000 Mg Tablet) 1,000 mg PO BIDWM [facility] Last Admin: 09/28/22 08:37 Dose: 1,000 mg Documented By: BRANDEN Ondansetron HCl (Ondansetron Hcl 4 Mg/2 Ml Vial) 4 mg IVPUSH Q8H PRN PRN Reason: Nausea and Vomiting Pharmacy Consult (Consult Rx Perform Med Rec) 1 each MISCELLANE ONCE PRN PRN Reason: Consult order Sertraline HCl (Sertraline Hcl 100 Mg Tablet) 100 mg PO DAILY [facility] Last Admin: 09/28/22 08:37 Dose: 100 mg Documented By: BRANDEN Sodium Chloride (0.9 % Sodium Chloride Flush 3 Ml Syringe) 3 ml IVFLUSH QSHIFT [facility] Last Admin: 09/28/22 08:39 Dose: 3 ml Documented By: BRANDEN Vitamin D (Cholecalciferol (Vitamin D3) 25 Mcg Tablet) 25 mcg PO DAILY [facility] Last Admin: 09/28/22 08:37 Dose: 25 mcg Documented By: BRANDEN Labs 09/27/22 05:26 09/28/22 06:47 Labs: Laboratory Results - last 24 hr 09/27/22 09/27/22 09/28/22 16:03 19:47 06:47 Anion Gap Estim Creat Clear Calc Estimated GFR POC Glucose 260 H 223 H Random Glucose Calcium Vancomycin Trough 5.2 L 09/28/22 09/28/22 09/28/22 06:47 06:47 07:48 Anion Gap 12 Estim Creat Clear Calc 65.5 67.2 Estimated GFR > 60 > 60 POC Glucose 173 H Random Glucose 173 H Calcium 8.9 Vancomycin Trough 09/28/22 11:01 Anion Gap Estim Creat Clear Calc Estimated GFR POC Glucose 250 H Random Glucose Calcium Vancomycin Trough Microbiology Microbiology Results: Microbiology 09/26/22 08:34 Blood Culture - Final Blood - Venous Staphylococcus aureus 09/26/22 08:35 Blood Culture - Final Blood - Venous Staphylococcus aureus 09/25/22 13:10 Gram Stain - Final Chest Routine Culture - Final Staphylococcus aureus 09/25/22 06:54 Blood Culture - Final Blood - Venous Staphylococcus aureus 09/25/22 06:54 Blood Culture - Final Blood - Venous Staphylococcus aureus Assessment and Plan (1) Staphylococcus aureus bacteremia: Status: Acute (2) Central line infection: Status: Acute Plan 77F past medical history that includes HTN HLD, JHONNY secondary to rhabdomyolysis in June that required hemodialysis with a PermCath in place presented to the hospital with weakness severe sepsis due to MSSA bacteremia due to permacath permacath now removed when cultures negative, plan for 4 weeks iv ancef via picc (okay with nephro) echo - no vegetations recent jhonny due to rhabdo resolved, no longer on HD DM with hyperglcemia insulin, metformin permanent A flutter continue eliquis HTN not on home meds, monitor mood disorder zoloft klonipin thorazine hld statin DVT ppx: Eliquis full code reason for continued hospitalization:awaiting negative cultures Time Spent With Patient Time: Total time managing care of this patient today ____ minutes. Quality Stroke Does the patient have a stroke diagnosis?: No VTE Prior VTE?: No VTE Risk Level:: Medical - moderate - high VTE Device Contraindication: Treatment Not Indicated VTE Drug Contraindication: N/A - Med Ordered
[2022-09-28] MEDS: amLODIPine Besylate 5 MG TABLET PO (15:26)
[2022-09-28 16:07] LABS: Glucose, Whole Blood 219 mg/dL (60-115)
[2022-09-28 19:45] LABS: Glucose, Whole Blood 149 mg/dL (60-115)
[2022-09-28] MEDS: Melatonin 3 MG TABLET 6 MG PO (20:39)
[2022-09-28] MEDS: chlorproMAZINE HCl 25 MG TABLET 50 MG PO (20:39)
[2022-09-29] VITALS (8 sets, daily range): BP systolic 140–200; BP diastolic 60–86; PULSE 55–63; RESP 16–18; TEMP 36.2–37.1; O2SAT 92–96; BMI 25.5
[2022-09-29] MEDS: ceFAZolin Sodium/Dextrose,Iso 2 GM/50 ML PIGGYBACK IV ×4 (01:13→23:33)
--- NOTE | 2022-09-29 02:02 | PC.NURSE ---
Pt transferred to [id number], report called to nurse, no distress noted.
[2022-09-29 07:03] LABS: Creatinine Clr Calc Pharmacy 71.5; Estimated Glomerular Filt Rate > 60
[2022-09-29] MEDS: metFORMIN HCl 1,000 MG TABLET 1000 MG PO ×2 (07:19→17:02)
[2022-09-29 07:46] LABS: Glucose, Whole Blood 155 mg/dL (60-115)
[2022-09-29] MEDS: clonazePAM 1 MG TABLET PO ×2 (08:35→20:05)
[2022-09-29] MEDS: Cholecalciferol (Vitamin D3) 25 MCG TABLET PO (08:35)
[2022-09-29] MEDS: Folic Acid 1 MG TABLET PO (08:35)
[2022-09-29] MEDS: Cyanocobalamin (Vitamin B-12) 1,000 MCG TABLET 1000 MCG PO (08:35)
[2022-09-29] MEDS: amLODIPine Besylate 5 MG TABLET PO (08:35)
[2022-09-29] MEDS: Apixaban 2.5 MG TABLET PO ×2 (08:35→20:05)
[2022-09-29] MEDS: Atorvastatin Calcium 20 MG TABLET PO (08:35)
[2022-09-29] MEDS: Sertraline HCL 100 MG TABLET PO (08:35)
[2022-09-29] MEDS: Insulin Lispro 100 UNIT/ML 3 ML VIAL SUBCUT ×4 (08:37→21:32)
[2022-09-29] MEDS: Insulin Glargine,Hum.rec.anlog 100 UNIT/ML 10 ML VIAL 8 UNIT SUBCUT (08:38)
[2022-09-29] MEDS: 0.9 % Sodium Chloride Flush 3 ML SYRINGE IVFLUSH ×3 (08:40→20:05)
--- NOTE | 2022-09-29 10:20 | HO.PM.IMPN ---
Subjective Subjective Date of Service: 09/29/22 Interval History: poor sleep Physical Exam Vital Signs: Vital Signs: Last Vital Signs Temp 97.5 F 09/29/22 07:03 Pulse 63 09/29/22 07:03 Resp 16 09/29/22 07:03 BP 140/74 H 09/29/22 07:54 Pulse Ox 92 09/29/22 07:03 O2 Del Method Room Air 09/29/22 07:03 BMI result Body Mass Index 25.5 General: AO X 3, no acute distress Resp: CTA bilateral, no accessory muscles used CVS: S1,S2,RRR GI: soft, non tender, non distended Neuro: motor grossly intact, alert Psych: appropriate affect, appropriate insight Objective Data Active Medications Acetaminophen (Acetaminophen 325 Mg Tablet) 650 mg PO Q6H PRN PRN Reason: Pain, Mild (Pain Scale 1-3) Last Admin: 09/27/22 09:39 Dose: 650 mg Documented By: JUAN CARLOS Acetaminophen (Acetaminophen 325 Mg Tablet) 650 mg PO Q6H PRN PRN Reason: Pain, Moderate (Pain Scale 4-6 Last Admin: 09/28/22 05:13 Dose: 650 mg Documented By: DAPHNIE Amlodipine Besylate (Amlodipine Besylate 5 Mg Tablet) 5 mg PO DAILY [facility]; Protocol Last Admin: 09/29/22 08:35 Dose: 5 mg Documented By: WENDIE Apixaban (Apixaban 2.5 Mg Tablet) 2.5 mg PO BID [facility] Last Admin: 09/29/22 08:35 Dose: 2.5 mg Documented By: WENDIE Atorvastatin Calcium (Atorvastatin Calcium 20 Mg Tablet) 20 mg PO DAILY [facility] Last Admin: 09/29/22 08:35 Dose: 20 mg Documented By: WENDIE Chlorpromazine HCl (Chlorpromazine Hcl 25 Mg Tablet) 50 mg PO BEDTIME [facility] Last Admin: 09/28/22 20:39 Dose: 50 mg Documented By: TEDDY Cholestyramine Resin (Cholestyramine (With Sugar) 4 Gm Powd.Pack) 4 gm PO DAILY [facility] Last Admin: 09/28/22 08:51 Dose: 4 gm Documented By: BRANDEN Clonazepam (Clonazepam 1 Mg Tablet) 1 mg PO BID [facility] Last Admin: 09/29/22 08:35 Dose: 1 mg Documented By: WENDIE Cyanocobalamin (Cyanocobalamin (Vitamin B-12) 1,000 Mcg Tablet) 1,000 mcg PO DAILY [facility] Last Admin: 09/29/22 08:35 Dose: 1,000 mcg Documented By: WENDIE Fentanyl (Fentanyl Citrate/Pf 100 Mcg/2 Ml Vial) 25 mcg IVPUSH Q5M PRN; Protocol PRN Reason: Pain, Moderate (Pain Scale 4-6 Folic Acid (Folic Acid 1 Mg Tablet) 1 mg PO DAILY [facility] Last Admin: 09/29/22 08:35 Dose: 1 mg Documented By: WENDIE Glucose (Glucose Gel 15 Gm Gel..Gram.) 15 gm PO Q15M PRN; Protocol PRN Reason: per Hypoglycemia Standing Ord. Dextrose (D10) 250 mls @ 750 mls/hr IV Q15M PRN; Protocol PRN Reason: per Hypoglycemia Standing Ord. Cefazolin Sodium/Dextrose (Ancef) 2 gm in 50 mls @ 100 mls/hr IV Q8H [facility] Last Infusion: 09/29/22 08:28 Dose: 0 mls/hr Documented By: WENDIE Insulin Glargine (Insulin Glargine,Hum.Rec.Anlog 100 Unit/Ml 10 Ml Vial) 8 unit SUBCUT DAILY [facility] Last Admin: 09/29/22 08:38 Dose: 8 unit Documented By: WENDIE Insulin Human Lispro (Insulin Lispro 100 Unit/Ml 3 Ml Vial) 0 unit SUBCUT QIDACHS [facility]; Protocol Last Admin: 09/29/22 08:37 Dose: 2 unit Documented By: WENDIE Melatonin (Melatonin 3 Mg Tablet) 6 mg PO BEDTIME PRN PRN Reason: insomnia Last Admin: 09/28/22 20:39 Dose: 6 mg Documented By: ANAHI-JENNIFER Metformin HCl (Metformin Hcl 1,000 Mg Tablet) 1,000 mg PO BIDWM [facility] Last Admin: 09/29/22 07:19 Dose: 1,000 mg Documented By: WENDIE Ondansetron HCl (Ondansetron Hcl 4 Mg/2 Ml Vial) 4 mg IVPUSH Q8H PRN PRN Reason: Nausea and Vomiting Pharmacy Consult (Consult Rx Perform Med Rec) 1 each MISCELLANE ONCE PRN PRN Reason: Consult order Sertraline HCl (Sertraline Hcl 100 Mg Tablet) 100 mg PO DAILY [facility] Last Admin: 09/29/22 08:35 Dose: 100 mg Documented By: WENDIE Sodium Chloride (0.9 % Sodium Chloride Flush 3 Ml Syringe) 3 ml IVFLUSH QSHIFT [facility] Last Admin: 09/29/22 08:40 Dose: 3 ml Documented By: WENDIE Vitamin D (Cholecalciferol (Vitamin D3) 25 Mcg Tablet) 25 mcg PO DAILY [facility] Last Admin: 09/29/22 08:35 Dose: 25 mcg Documented By: WENDIE Labs 09/27/22 05:26 09/29/22 05:19 Labs: Laboratory Results - last 24 hr 09/28/22 09/28/22 09/28/22 11:01 16:03 19:38 Estim Creat Clear Calc Estimated GFR POC Glucose 250 H 219 H 149 H 09/29/22 09/29/22 05:19 07:06 Estim Creat Clear Calc 71.5 Estimated GFR > 60 POC Glucose 155 H Microbiology Microbiology Results: Microbiology 09/27/22 13:36 Blood Culture - Preliminary Blood - Venous No growth after 24 hours. 09/27/22 13:36 Blood Culture - Preliminary Blood - Venous No growth after 24 hours. 09/26/22 08:34 Blood Culture - Final Blood - Venous Staphylococcus aureus 09/26/22 08:35 Blood Culture - Final Blood - Venous Staphylococcus aureus 09/25/22 13:10 Gram Stain - Final Chest Routine Culture - Final Staphylococcus aureus Assessment and Plan (1) Staphylococcus aureus bacteremia: Status: Acute (2) Central line infection: Status: Acute Plan 77F past medical history that includes HTN HLD, JHONNY secondary to rhabdomyolysis in June that required hemodialysis with a PermCath in place presented to the hospital with weakness severe sepsis due to MSSA bacteremia due to permacath permacath now removed cultures negative from 09/27/22, plan for 4 weeks iv ancef via picc (okay with nephro), end date would be 10/24/22 echo - no vegetations recent jhonny due to rhabdo resolved, no longer on HD DM with hyperglcemia insulin, metformin permanent A flutter continue eliquis HTN not on home meds, monitor mood disorder zoloft klonipin thorazine hld statin DVT ppx: Eliquis full code reason for continued hospitalization:needs access and set up for outpatient iv abx Time Spent With Patient Time: Total time managing care of this patient today ____ minutes. Quality Stroke Does the patient have a stroke diagnosis?: No VTE Prior VTE?: No VTE Risk Level:: Medical - moderate - high VTE Device Contraindication: Treatment Not Indicated VTE Drug Contraindication: N/A - Med Ordered
[2022-09-29] MEDS: Cholestyramine (With Sugar) 4 GM POWD.PACK PO (10:38)
[2022-09-29 11:44] LABS: Glucose, Whole Blood 209 mg/dL (60-115)
[2022-09-29 16:42] LABS: Glucose, Whole Blood 202 mg/dL (60-115)
[2022-09-29] MEDS: Melatonin 3 MG TABLET 6 MG PO (20:05)
[2022-09-29] MEDS: chlorproMAZINE HCl 25 MG TABLET 50 MG PO (20:05)
[2022-09-29 21:25] LABS: Glucose, Whole Blood 222 mg/dL (60-115)
[2022-09-30] VITALS (10 sets, daily range): BP systolic 141–188; BP diastolic 62–80; PULSE 53–62; RESP 14–18; TEMP 36.3–37.1; O2SAT 92–96; BMI 25.4
[2022-09-30 08:01] LABS: Glucose, Whole Blood 182 mg/dL (60-115)
[2022-09-30] MEDS: ceFAZolin Sodium/Dextrose,Iso 2 GM/50 ML PIGGYBACK IV ×3 (08:20→23:24)
[2022-09-30] MEDS: 0.9 % Sodium Chloride Flush 3 ML SYRINGE IVFLUSH ×3 (08:21→20:12)
[2022-09-30] MEDS: metFORMIN HCl 1,000 MG TABLET 1000 MG PO ×2 (08:21→17:17)
[2022-09-30] MEDS: Insulin Lispro 100 UNIT/ML 3 ML VIAL SUBCUT ×4 (08:21→20:22)
--- NOTE | 2022-09-30 09:42 | HO.PM.IMPN ---
Subjective Subjective Date of Service: 09/30/22 Interval History: no new complaints Physical Exam Vital Signs: Vital Signs: Last Vital Signs Temp 98.7 F 09/30/22 08:00 Pulse 59 09/30/22 08:00 Resp 18 09/30/22 08:00 BP 156/73 H 09/30/22 08:00 Pulse Ox 94 09/30/22 08:00 O2 Del Method Room Air 09/30/22 08:00 BMI result Body Mass Index 25.4 General: AO X 3, no acute distress Resp: CTA bilateral, no accessory muscles used CVS: S1,S2,RRR GI: soft, non tender, non distended Neuro: motor grossly intact, alert Psych: appropriate affect, appropriate insight Objective Data Active Medications Acetaminophen (Acetaminophen 325 Mg Tablet) 650 mg PO Q6H PRN PRN Reason: Pain, Mild (Pain Scale 1-3) Last Admin: 09/27/22 09:39 Dose: 650 mg Documented By: ANAHI-KRISTI Acetaminophen (Acetaminophen 325 Mg Tablet) 650 mg PO Q6H PRN PRN Reason: Pain, Moderate (Pain Scale 4-6 Last Admin: 09/28/22 05:13 Dose: 650 mg Documented By: DAPHNIE Amlodipine Besylate (Amlodipine Besylate 5 Mg Tablet) 5 mg PO DAILY [facility]; Protocol Last Admin: 09/29/22 08:35 Dose: 5 mg Documented By: WENDIE Apixaban (Apixaban 2.5 Mg Tablet) 2.5 mg PO BID [facility] Last Admin: 09/29/22 20:05 Dose: 2.5 mg Documented By: MARYAN Atorvastatin Calcium (Atorvastatin Calcium 20 Mg Tablet) 20 mg PO DAILY [facility] Last Admin: 09/29/22 08:35 Dose: 20 mg Documented By: WENDIE Chlorpromazine HCl (Chlorpromazine Hcl 25 Mg Tablet) 50 mg PO BEDTIME [facility] Last Admin: 09/29/22 20:05 Dose: 50 mg Documented By: MARYAN Cholestyramine Resin (Cholestyramine (With Sugar) 4 Gm Powd.Pack) 4 gm PO DAILY [facility] Last Admin: 09/29/22 10:38 Dose: 4 gm Documented By: WENDIE Cyanocobalamin (Cyanocobalamin (Vitamin B-12) 1,000 Mcg Tablet) 1,000 mcg PO DAILY [facility] Last Admin: 09/29/22 08:35 Dose: 1,000 mcg Documented By: WENDIE Fentanyl (Fentanyl Citrate/Pf 100 Mcg/2 Ml Vial) 25 mcg IVPUSH Q5M PRN; Protocol PRN Reason: Pain, Moderate (Pain Scale 4-6 Folic Acid (Folic Acid 1 Mg Tablet) 1 mg PO DAILY [facility] Last Admin: 09/29/22 08:35 Dose: 1 mg Documented By: WENDIE Glucose (Glucose Gel 15 Gm Gel..Gram.) 15 gm PO Q15M PRN; Protocol PRN Reason: per Hypoglycemia Standing Ord. Dextrose (D10) 250 mls @ 750 mls/hr IV Q15M PRN; Protocol PRN Reason: per Hypoglycemia Standing Ord. Cefazolin Sodium/Dextrose (Ancef) 2 gm in 50 mls @ 100 mls/hr IV Q8H [facility] Last Infusion: 09/30/22 09:08 Dose: 0 mls/hr Documented By: OSCAR Insulin Glargine (Insulin Glargine,Hum.Rec.Anlog 100 Unit/Ml 10 Ml Vial) 8 unit SUBCUT DAILY [facility] Last Admin: 09/29/22 08:38 Dose: 8 unit Documented By: WENDIE Insulin Human Lispro (Insulin Lispro 100 Unit/Ml 3 Ml Vial) 0 unit SUBCUT QIDACHS [facility]; Protocol Last Admin: 09/30/22 08:21 Dose: 2 unit Documented By: JORDI Melatonin (Melatonin 3 Mg Tablet) 6 mg PO BEDTIME PRN PRN Reason: insomnia Last Admin: 09/29/22 20:05 Dose: 6 mg Documented By: ODRISPartha Metformin HCl (Metformin Hcl 1,000 Mg Tablet) 1,000 mg PO BIDWM [facility] Last Admin: 09/30/22 08:21 Dose: 1,000 mg Documented By: JORDI Ondansetron HCl (Ondansetron Hcl 4 Mg/2 Ml Vial) 4 mg IVPUSH Q8H PRN PRN Reason: Nausea and Vomiting Pharmacy Consult (Consult Rx Perform Med Rec) 1 each MISCELLANE ONCE PRN PRN Reason: Consult order Sertraline HCl (Sertraline Hcl 100 Mg Tablet) 100 mg PO DAILY [facility] Last Admin: 09/29/22 08:35 Dose: 100 mg Documented By: WENDIE Sodium Chloride (0.9 % Sodium Chloride Flush 3 Ml Syringe) 3 ml IVFLUSH QSHIFT [facility] Last Admin: 09/30/22 08:21 Dose: 3 ml Documented By: JORDI Vitamin D (Cholecalciferol (Vitamin D3) 25 Mcg Tablet) 25 mcg PO DAILY [facility] Last Admin: 09/29/22 08:35 Dose: 25 mcg Documented By: WENDIE Labs 09/27/22 05:26 09/29/22 05:19 Labs: Laboratory Results - last 24 hr 09/29/22 09/29/22 09/29/22 11:26 16:35 21:21 POC Glucose 209 H 202 H 222 H 09/30/22 07:57 POC Glucose 182 H Microbiology Microbiology Results: Microbiology 09/27/22 13:36 Blood Culture - Preliminary Blood - Venous No growth after 48 hours. 09/27/22 13:36 Blood Culture - Preliminary Blood - Venous Prelim: GPC Gram Stain only Assessment and Plan (1) Staphylococcus aureus bacteremia: Status: Acute (2) Central line infection: Status: Acute Plan 77F past medical history that includes HTN HLD, JHONNY secondary to rhabdomyolysis in June that required hemodialysis with a PermCath in place presented to the hospital with weakness severe sepsis due to MSSA bacteremia due to permacath permacath now removed cultures still positive from 09/27/22, plan for 4 weeks iv ancef via picc (okay with nephro), end date would be 10/26/22 if remains negative from 09/29/22 echo - no vegetations recent jhonny due to rhabdo resolved, no longer on HD DM with hyperglcemia insulin, metformin permanent A flutter continue eliquis HTN not on home meds, started on amlodipine 5mg daily mood disorder zoloft klonipin thorazine hld statin DVT ppx: Eliquis full code reason for continued hospitalization:needs access and set up for outpatient iv abx Time Spent With Patient Time: Total time managing care of this patient today ____ minutes. Quality Stroke Does the patient have a stroke diagnosis?: No VTE Prior VTE?: No VTE Risk Level:: Medical - moderate - high VTE Device Contraindication: Treatment Not Indicated VTE Drug Contraindication: N/A - Med Ordered
[2022-09-30] MEDS: Apixaban 2.5 MG TABLET PO ×2 (10:09→20:14)
[2022-09-30] MEDS: Cholecalciferol (Vitamin D3) 25 MCG TABLET PO (10:10)
[2022-09-30] MEDS: Cyanocobalamin (Vitamin B-12) 1,000 MCG TABLET 1000 MCG PO (10:10)
[2022-09-30] MEDS: Atorvastatin Calcium 20 MG TABLET PO (10:10)
[2022-09-30] MEDS: Folic Acid 1 MG TABLET PO (10:10)
[2022-09-30] MEDS: Sertraline HCL 100 MG TABLET PO (10:10)
[2022-09-30] MEDS: amLODIPine Besylate 5 MG TABLET PO (10:10)
[2022-09-30] MEDS: Insulin Glargine,Hum.rec.anlog 100 UNIT/ML 10 ML VIAL 8 UNIT SUBCUT (10:10)
[2022-09-30] MEDS: Cholestyramine (With Sugar) 4 GM POWD.PACK PO (10:10)
[2022-09-30 11:26] LABS: Glucose, Whole Blood 219 mg/dL (60-115)
[2022-09-30 16:35] LABS: Glucose, Whole Blood 224 mg/dL (60-115)
[2022-09-30 20:12] LABS: Glucose, Whole Blood 166 mg/dL (60-115)
[2022-09-30] MEDS: chlorproMAZINE HCl 25 MG TABLET 50 MG PO (20:14)
[2022-09-30] MEDS: Melatonin 3 MG TABLET 6 MG PO (20:14)
[2022-10-01 06:00] VITALS: BMI 26.4
[2022-10-01 07:27] VITALS: BP 152/64; PULSE 53; RESP 16; TEMP 36.3; O2SAT 94
[2022-10-01 07:31] LABS: Glucose, Whole Blood 171 mg/dL (60-115)
[2022-10-01] MEDS: metFORMIN HCl 1,000 MG TABLET 1000 MG PO ×2 (08:13→16:19)
[2022-10-01] MEDS: Insulin Lispro 100 UNIT/ML 3 ML VIAL SUBCUT ×4 (08:13→21:09)
--- NOTE | 2022-10-01 09:05 | P.PNIM_ITS ---
Subjective Subjective Date of Service: 10/01/22 Interval History: no complaints Physical Exam Vital Signs: Vital Signs: Last Vital Signs Temp 97.4 F 10/01/22 07:27 Pulse 53 10/01/22 07:27 Resp 16 10/01/22 07:27 BP 152/64 H 10/01/22 07:27 Pulse Ox 94 10/01/22 07:27 O2 Del Method Room Air 10/01/22 07:27 BMI result Body Mass Index 26.4 General: AO X 3, no acute distress Resp: CTA bilateral, no accessory muscles used CVS: S1,S2,RRR GI: soft, non tender, non distended Neuro: motor grossly intact, alert Psych: appropriate affect, appropriate insight Objective Data Active Medications Acetaminophen (Acetaminophen 325 Mg Tablet) 650 mg PO Q6H PRN PRN Reason: Pain, Mild (Pain Scale 1-3) Last Admin: 09/27/22 09:39 Dose: 650 mg Documented By: ANAHI-KRISTI Acetaminophen (Acetaminophen 325 Mg Tablet) 650 mg PO Q6H PRN PRN Reason: Pain, Moderate (Pain Scale 4-6 Last Admin: 09/28/22 05:13 Dose: 650 mg Documented By: DAPHNIE Amlodipine Besylate (Amlodipine Besylate 5 Mg Tablet) 5 mg PO DAILY [facility]; Protocol Last Admin: 09/30/22 10:10 Dose: 5 mg Documented By: JORDI Apixaban (Apixaban 2.5 Mg Tablet) 2.5 mg PO BID [facility] Last Admin: 09/30/22 20:14 Dose: 2.5 mg Documented By: ANTONIA Atorvastatin Calcium (Atorvastatin Calcium 20 Mg Tablet) 20 mg PO DAILY [facility] Last Admin: 09/30/22 10:10 Dose: 20 mg Documented By: JORDI Chlorpromazine HCl (Chlorpromazine Hcl 25 Mg Tablet) 50 mg PO BEDTIME [facility] Last Admin: 09/30/22 20:14 Dose: 50 mg Documented By: ANTONIA Cholestyramine Resin (Cholestyramine (With Sugar) 4 Gm Powd.Pack) 4 gm PO DAILY [facility] Last Admin: 09/30/22 10:10 Dose: 4 gm Documented By: JORDI Cyanocobalamin (Cyanocobalamin (Vitamin B-12) 1,000 Mcg Tablet) 1,000 mcg PO DAILY [facility] Last Admin: 09/30/22 10:10 Dose: 1,000 mcg Documented By: JORDI Folic Acid (Folic Acid 1 Mg Tablet) 1 mg PO DAILY [facility] Last Admin: 09/30/22 10:10 Dose: 1 mg Documented By: JORDI Glucose (Glucose Gel 15 Gm Gel..Gram.) 15 gm PO Q15M PRN; Protocol PRN Reason: per Hypoglycemia Standing Ord. Dextrose (D10) 250 mls @ 750 mls/hr IV Q15M PRN; Protocol PRN Reason: per Hypoglycemia Standing Ord. Cefazolin Sodium/Dextrose (Ancef) 2 gm in 50 mls @ 100 mls/hr IV Q8H [facility] Last Infusion: 10/01/22 00:08 Dose: 0 mls/hr Documented By: ANTONIA Insulin Glargine (Insulin Glargine,Hum.Rec.Anlog 100 Unit/Ml 10 Ml Vial) 8 unit SUBCUT DAILY [facility] Last Admin: 09/30/22 10:10 Dose: 8 unit Documented By: JORDI Insulin Human Lispro (Insulin Lispro 100 Unit/Ml 3 Ml Vial) 0 unit SUBCUT QIDACHS [facility]; Protocol Last Admin: 10/01/22 08:13 Dose: 2 unit Documented By: FRANCISCO Melatonin (Melatonin 3 Mg Tablet) 6 mg PO BEDTIME PRN PRN Reason: insomnia Last Admin: 09/30/22 20:14 Dose: 6 mg Documented By: ANTONIA Metformin HCl (Metformin Hcl 1,000 Mg Tablet) 1,000 mg PO BIDWM [facility] Last Admin: 10/01/22 08:13 Dose: 1,000 mg Documented By: FRANCISCO Ondansetron HCl (Ondansetron Hcl 4 Mg/2 Ml Vial) 4 mg IVPUSH Q8H PRN PRN Reason: Nausea and Vomiting Pharmacy Consult (Consult Rx Perform Med Rec) 1 each MISCELLANE ONCE PRN PRN Reason: Consult order Sertraline HCl (Sertraline Hcl 100 Mg Tablet) 100 mg PO DAILY [facility] Last Admin: 09/30/22 10:10 Dose: 100 mg Documented By: JORDI Sodium Chloride (0.9 % Sodium Chloride Flush 3 Ml Syringe) 3 ml IVFLUSH QSHIFT [facility] Last Admin: 04/14/23 20:12 Dose: 3 ml Documented By: ANTONIA Vitamin D (Cholecalciferol (Vitamin D3) 25 Mcg Tablet) 25 mcg PO DAILY [facility] Last Admin: 09/30/22 10:10 Dose: 25 mcg Documented By: JORDI Labs 09/27/22 05:26 09/29/22 05:19 Labs: Laboratory Results - last 24 hr 09/30/22 09/30/22 09/30/22 11:22 16:26 20:05 POC Glucose 219 H 224 H 166 H 10/01/22 07:08 POC Glucose 171 H Microbiology Microbiology Results: Microbiology 09/30/22 06:04 Blood Culture - Preliminary Blood - Venous No growth after 24 hours. 09/30/22 06:05 Blood Culture - Preliminary Blood - Venous No growth after 24 hours. 09/27/22 13:36 Blood Culture - Final Blood - Venous Staphylococcus aureus Assessment and Plan (1) Staphylococcus aureus bacteremia: Status: Acute (2) Central line infection: Status: Acute Plan 77F past medical history that includes HTN HLD, JHONNY secondary to rhabdomyolysis in June that required hemodialysis with a PermCath in place presented to the hospital with weakness severe sepsis due to MSSA bacteremia due to permacath permacath now removed cultures still positive from 09/27/22, plan for 4 weeks iv ancef via picc (okay with nephro), end date would be 10/26/22 if remains negative from 09/29/22 echo - no vegetations recent jhonny due to rhabdo resolved, no longer on HD DM with hyperglcemia insulin, metformin permanent A flutter continue eliquis HTN not on home meds, started on amlodipine 5mg daily mood disorder zoloft klonipin thorazine hld statin DVT ppx: Eliquis full code reason for continued hospitalization:needs access and set up for outpatient iv abx Time Spent With Patient Time: Total time managing care of this patient today ____ minutes. Quality Stroke Does the patient have a stroke diagnosis?: No VTE Prior VTE?: No VTE Risk Level:: Medical - moderate - high VTE Device Contraindication: Treatment Not Indicated VTE Drug Contraindication: N/A - Med Ordered
[2022-10-01] MEDS: ceFAZolin Sodium/Dextrose,Iso 2 GM/50 ML PIGGYBACK IV ×3 (09:09→23:31)
[2022-10-01] MEDS: 0.9 % Sodium Chloride Flush 3 ML SYRINGE IVFLUSH ×3 (09:09→20:00)
[2022-10-01 10:07] VITALS: BP 150/70
[2022-10-01] MEDS: Atorvastatin Calcium 20 MG TABLET PO (10:14)
[2022-10-01] MEDS: Folic Acid 1 MG TABLET PO (10:14)
[2022-10-01] MEDS: Cholecalciferol (Vitamin D3) 25 MCG TABLET PO (10:14)
[2022-10-01] MEDS: amLODIPine Besylate 5 MG TABLET PO (10:14)
[2022-10-01] MEDS: Cyanocobalamin (Vitamin B-12) 1,000 MCG TABLET 1000 MCG PO (10:15)
[2022-10-01] MEDS: Apixaban 2.5 MG TABLET PO ×2 (10:15→20:00)
[2022-10-01] MEDS: Cholestyramine (With Sugar) 4 GM POWD.PACK PO (10:15)
[2022-10-01] MEDS: Sertraline HCL 100 MG TABLET PO (10:15)
[2022-10-01] MEDS: Acetaminophen 325 MG TABLET 650 MG PO (10:15)
[2022-10-01] MEDS: Insulin Glargine,Hum.rec.anlog 100 UNIT/ML 10 ML VIAL 8 UNIT SUBCUT (10:16)
[2022-10-01 11:27] LABS: Glucose, Whole Blood 218 mg/dL (60-115)
[2022-10-01 12:00] VITALS: O2SAT 95
[2022-10-01 15:37] VITALS: BP 152/60; PULSE 55; RESP 18; TEMP 36.5; O2SAT 94
[2022-10-01 16:23] LABS: Glucose, Whole Blood 213 mg/dL (60-115)
[2022-10-01 19:06] VITALS: BP 153/68; PULSE 60; RESP 14; TEMP 36.4; O2SAT 97
[2022-10-01] MEDS: chlorproMAZINE HCl 25 MG TABLET 50 MG PO (20:00)
[2022-10-01] MEDS: Melatonin 3 MG TABLET 6 MG PO (20:00)
[2022-10-01 20:28] LABS: Glucose, Whole Blood 213 mg/dL (60-115)
[2022-10-01 23:59] VITALS: BP 155/70; PULSE 60; RESP 18; TEMP 36.2; O2SAT 95
[2022-10-02 06:00] VITALS: BMI 26.3
[2022-10-02 07:41] VITALS: BP 163/72; PULSE 64; RESP 18; TEMP 36.9; O2SAT 93
[2022-10-02 07:47] LABS: Glucose, Whole Blood 180 mg/dL (60-115)
[2022-10-02] MEDS: Sertraline HCL 100 MG TABLET PO (07:53)
[2022-10-02] MEDS: Folic Acid 1 MG TABLET PO (07:53)
[2022-10-02] MEDS: Apixaban 2.5 MG TABLET PO ×2 (07:53→21:26)
[2022-10-02] MEDS: Cyanocobalamin (Vitamin B-12) 1,000 MCG TABLET 1000 MCG PO (07:53)
[2022-10-02] MEDS: Cholecalciferol (Vitamin D3) 25 MCG TABLET PO (07:53)
[2022-10-02] MEDS: metFORMIN HCl 1,000 MG TABLET 1000 MG PO ×2 (07:53→17:01)
[2022-10-02] MEDS: amLODIPine Besylate 5 MG TABLET PO (07:54)
[2022-10-02] MEDS: Atorvastatin Calcium 20 MG TABLET PO (07:54)
[2022-10-02] MEDS: Acetaminophen 325 MG TABLET 650 MG PO (07:58)
[2022-10-02] MEDS: Cholestyramine (With Sugar) 4 GM POWD.PACK PO (07:59)
[2022-10-02] MEDS: Insulin Lispro 100 UNIT/ML 3 ML VIAL SUBCUT ×4 (08:00→21:26)
[2022-10-02] MEDS: Insulin Glargine,Hum.rec.anlog 100 UNIT/ML 10 ML VIAL 8 UNIT SUBCUT (08:00)
[2022-10-02] MEDS: ceFAZolin Sodium/Dextrose,Iso 2 GM/50 ML PIGGYBACK IV ×2 (08:03→17:02)
[2022-10-02] MEDS: 0.9 % Sodium Chloride Flush 3 ML SYRINGE IVFLUSH ×2 (08:04→17:02)
--- NOTE | 2022-10-02 08:49 | P.PNIM_ITS ---
Subjective Subjective Date of Service: 10/02/22 Interval History: no complaints Physical Exam Vital Signs: Vital Signs: Last Vital Signs Temp 98.5 F 10/02/22 07:41 Pulse 64 10/02/22 07:41 Resp 18 10/02/22 07:41 BP 163/72 H 10/02/22 07:41 Pulse Ox 93 10/02/22 07:41 O2 Del Method Room Air 10/02/22 07:41 BMI result Body Mass Index 26.3 General: AO X 3, no acute distress Resp: CTA bilateral, no accessory muscles used CVS: S1,S2,RRR GI: soft, non tender, non distended Neuro: motor grossly intact, alert Psych: appropriate affect, appropriate insight Objective Data Active Medications Acetaminophen (Acetaminophen 325 Mg Tablet) 650 mg PO Q6H PRN PRN Reason: Pain, Mild (Pain Scale 1-3) Last Admin: 10/02/22 07:58 Dose: 650 mg Documented By: WENDIE Acetaminophen (Acetaminophen 325 Mg Tablet) 650 mg PO Q6H PRN PRN Reason: Pain, Moderate (Pain Scale 4-6 Last Admin: 09/28/22 05:13 Dose: 650 mg Documented By: DAPHNIE Amlodipine Besylate (Amlodipine Besylate 5 Mg Tablet) 5 mg PO DAILY [facility]; Protocol Last Admin: 10/02/22 07:54 Dose: 5 mg Documented By: WENDIE Apixaban (Apixaban 2.5 Mg Tablet) 2.5 mg PO BID [facility] Last Admin: 10/02/22 07:53 Dose: 2.5 mg Documented By: WENDIE Atorvastatin Calcium (Atorvastatin Calcium 20 Mg Tablet) 20 mg PO DAILY [facility] Last Admin: 10/02/22 07:54 Dose: 20 mg Documented By: WENDIE Chlorpromazine HCl (Chlorpromazine Hcl 25 Mg Tablet) 50 mg PO BEDTIME [facility] Last Admin: 10/01/22 20:00 Dose: 50 mg Documented By: ODRISM Cholestyramine Resin (Cholestyramine (With Sugar) 4 Gm Powd.Pack) 4 gm PO DAILY [facility] Last Admin: 10/02/22 07:59 Dose: 4 gm Documented By: WENDIE Cyanocobalamin (Cyanocobalamin (Vitamin B-12) 1,000 Mcg Tablet) 1,000 mcg PO D AILY [facility] Last Admin: 10/02/22 07:53 Dose: 1,000 mcg Documented By: WENDIE Folic Acid (Folic Acid 1 Mg Tablet) 1 mg PO DAILY [facility] Last Admin: 10/02/22 07:53 Dose: 1 mg Documented By: WENDIE Glucose (Glucose Gel 15 Gm Gel..Gram.) 15 gm PO Q15M PRN; Protocol PRN Reason: per Hypoglycemia Standing Ord. Dextrose (D10) 250 mls @ 750 mls/hr IV Q15M PRN; Protocol PRN Reason: per Hypoglycemia Standing Ord. Cefazolin Sodium/Dextrose (Ancef) 2 gm in 50 mls @ 100 mls/hr IV Q8H [facility] Last Infusion: 10/02/22 08:33 Dose: 0 mls/hr Documented By: WENDIE Insulin Glargine (Insulin Glargine,Hum.Rec.Anlog 100 Unit/Ml 10 Ml Vial) 8 unit SUBCUT DAILY [facility] Last Admin: 10/02/22 08:00 Dose: 8 unit Documented By: WENDIE Insulin Human Lispro (Insulin Lispro 100 Unit/Ml 3 Ml Vial) 0 unit SUBCUT QIDACHS [facility]; Protocol Last Admin: 10/02/22 08:00 Dose: 2 unit Documented By: WENDIE Melatonin (Melatonin 3 Mg Tablet) 6 mg PO BEDTIME PRN PRN Reason: insomnia Last Admin: 10/01/22 20:00 Dose: 6 mg Documented By: ODRISPartha Metformin HCl (Metformin Hcl 1,000 Mg Tablet) 1,000 mg PO BIDWM [facility] Last Admin: 10/02/22 07:53 Dose: 1,000 mg Documented By: WENDIE Ondansetron HCl (Ondansetron Hcl 4 Mg/2 Ml Vial) 4 mg IVPUSH Q8H PRN PRN Reason: Nausea and Vomiting Pharmacy Consult (Consult Rx Perform Med Rec) 1 each MISCELLANE ONCE PRN PRN Reason: Consult order Sertraline HCl (Sertraline Hcl 100 Mg Tablet) 100 mg PO DAILY [facility] Last Admin: 10/02/22 07:53 Dose: 100 mg Documented By: WENDIE Sodium Chloride (0.9 % Sodium Chloride Flush 3 Ml Syringe) 3 ml IVFLUSH QSHIFT [facility] Last Admin: 10/02/22 08:04 Dose: 3 ml Documented By: WENDIE Vitamin D (Cholecalciferol (Vitamin D3) 25 Mcg Tablet) 25 mcg PO DAILY [facility] Last Admin: 10/02/22 07:53 Dose: 25 mcg Documented By: WENDIE Labs 09/27/22 05:26 09/29/22 05:19 Labs: Laboratory Results - last 24 hr 10/01/22 10/01/22 10/01/22 11:23 16:14 20:24 POC Glucose 218 H 213 H 213 H 10/02/22 07:40 POC Glucose 180 H Microbiology Microbiology Results: Microbiology 09/30/22 06:04 Blood Culture - Preliminary Blood - Venous No growth after 24 hours. 09/30/22 06:05 Blood Culture - Preliminary Blood - Venous No growth after 24 hours. Assessment and Plan (1) Staphylococcus aureus bacteremia: Status: Acute (2) Central line infection: Status: Acute Plan 77F past medical history that includes HTN HLD, JHONNY secondary to rhabdomyolysis in June that required hemodialysis with a PermCath in place presented to the hospital with weakness severe sepsis due to MSSA bacteremia due to permacath permacath now removed cultures still positive from 09/27/22, plan for 4 weeks iv ancef via picc (okay with nephro), end date would be 10/26/22 if remains negative from 09/29/22 echo - no vegetations recent jhonny due to rhabdo resolved, no longer on HD DM with hyperglcemia insulin, metformin permanent A flutter continue eliquis HTN not on home meds, started on amlodipine 5mg daily mood disorder zoloft klonipin thorazine hld statin DVT ppx: Eliquis full code reason for continued hospitalization:needs access and set up for outpatient iv abx Time Spent With Patient Time: Total time managing care of this patient today ____ minutes. Quality Stroke Does the patient have a stroke diagnosis?: No VTE Prior VTE?: No VTE Risk Level:: Medical - moderate - high VTE Device Contraindication: Treatment Not Indicated VTE Drug Contraindication: N/A - Med Ordered
[2022-10-02 11:18] LABS: Glucose, Whole Blood 213 mg/dL (60-115)
[2022-10-02 11:31] VITALS: O2SAT 95
[2022-10-02 12:00] VITALS: BP 162/58; PULSE 62; TEMP 36.6; O2SAT 95
[2022-10-02 15:41] VITALS: BP 156/70; PULSE 53; RESP 16; TEMP 36.2; O2SAT 94
[2022-10-02 16:30] LABS: Glucose, Whole Blood 187 mg/dL (60-115)
[2022-10-02 19:42] VITALS: BP 167/72; PULSE 52; RESP 16; TEMP 36.1; O2SAT 95
[2022-10-02 20:27] LABS: Glucose, Whole Blood 169 mg/dL (60-115)
[2022-10-02] MEDS: chlorproMAZINE HCl 25 MG TABLET 50 MG PO (21:26)
[2022-10-03] VITALS (8 sets, daily range): BP systolic 145–172; BP diastolic 62–77; PULSE 51–64; RESP 16–18; TEMP 36.1–36.8; O2SAT 94–97; BMI 26.0
[2022-10-03] MEDS: ceFAZolin Sodium/Dextrose,Iso 2 GM/50 ML PIGGYBACK IV ×3 (00:51→15:40)
[2022-10-03] MEDS: Melatonin 3 MG TABLET 6 MG PO (00:53)
[2022-10-03] MEDS: clonazePAM 1 MG TABLET PO ×3 (04:39→20:21)
[2022-10-03] MEDS: Folic Acid 1 MG TABLET PO (07:48)
[2022-10-03] MEDS: Sertraline HCL 100 MG TABLET PO (07:48)
[2022-10-03] MEDS: Insulin Glargine,Hum.rec.anlog 100 UNIT/ML 10 ML VIAL 8 UNIT SUBCUT (07:48)
[2022-10-03] MEDS: Cholestyramine (With Sugar) 4 GM POWD.PACK PO (07:48)
[2022-10-03] MEDS: metFORMIN HCl 1,000 MG TABLET 1000 MG PO ×2 (07:48→17:28)
[2022-10-03] MEDS: Apixaban 2.5 MG TABLET PO ×2 (07:48→20:21)
[2022-10-03] MEDS: Atorvastatin Calcium 20 MG TABLET PO (07:48)
[2022-10-03] MEDS: amLODIPine Besylate 5 MG TABLET PO (07:48)
[2022-10-03] MEDS: Cyanocobalamin (Vitamin B-12) 1,000 MCG TABLET 1000 MCG PO (07:48)
[2022-10-03] MEDS: Cholecalciferol (Vitamin D3) 25 MCG TABLET PO (07:48)
[2022-10-03] MEDS: Insulin Lispro 100 UNIT/ML 3 ML VIAL SUBCUT ×4 (07:49→20:21)
[2022-10-03] MEDS: 0.9 % Sodium Chloride Flush 3 ML SYRINGE IVFLUSH ×3 (07:57→20:22)
[2022-10-03 07:58] LABS: Glucose, Whole Blood 153 mg/dL (60-115)
--- NOTE | 2022-10-03 09:50 | P.PNIM_ITS ---
Subjective Subjective Date of Service: 10/03/22 Interval History: no complaints Physical Exam Vital Signs: Vital Signs: Last Vital Signs Temp 98.3 F 10/03/22 07:11 Pulse 64 10/03/22 07:11 Resp 16 10/03/22 07:11 BP 168/73 H 10/03/22 07:11 Pulse Ox 95 10/03/22 07:11 O2 Del Method Room Air 10/03/22 07:11 BMI result Body Mass Index 26.0 Objective Data Active Medications Acetaminophen (Acetaminophen 325 Mg Tablet) 650 mg PO Q6H PRN PRN Reason: Pain, Mild (Pain Scale 1-3) Last Admin: 10/02/22 07:58 Dose: 650 mg Documented By: WENDIE Acetaminophen (Acetaminophen 325 Mg Tablet) 650 mg PO Q6H PRN PRN Reason: Pain, Moderate (Pain Scale 4-6 Last Admin: 09/28/22 05:13 Dose: 650 mg Documented By: DAPHNIE Amlodipine Besylate (Amlodipine Besylate 5 Mg Tablet) 5 mg PO DAILY [facility]; Protocol Last Admin: 10/03/22 07:48 Dose: 5 mg Documented By: OSCAR Apixaban (Apixaban 2.5 Mg Tablet) 2.5 mg PO BID [facility] Last Admin: 10/03/22 07:48 Dose: 2.5 mg Documented By: OSCAR Atorvastatin Calcium (Atorvastatin Calcium 20 Mg Tablet) 20 mg PO DAILY [facility] Last Admin: 10/03/22 07:48 Dose: 20 mg Documented By: OSCAR Chlorpromazine HCl (Chlorpromazine Hcl 25 Mg Tablet) 50 mg PO BEDTIME [facility] Last Admin: 10/02/22 21:26 Dose: 50 mg Documented By: CORINA Cholestyramine Resin (Cholestyramine (With Sugar) 4 Gm Powd.Pack) 4 gm PO DAILY [facility] Last Admin: 10/03/22 07:48 Dose: 4 gm Documented By: OSCAR Cyanocobalamin (Cyanocobalamin (Vitamin B-12) 1,000 Mcg Tablet) 1,000 mcg PO DAILY [facility] Last Admin: 10/03/22 07:48 Dose: 1,000 mcg Documented By: OSCAR Folic Acid (Folic Acid 1 Mg Tablet) 1 mg PO DAILY [facility] Last Admin: 10/03/22 07:48 Dose: 1 mg Documented By: OSCAR Glucose (Glucose Gel 15 Gm Gel..Gram.) 15 gm PO Q15M PRN; Protocol PRN Reason: per Hypoglycemia Standing Ord. Dextrose (D10) 250 mls @ 750 mls/hr IV Q15M PRN; Protocol PRN Reason: per Hypoglycemia Standing Ord. Cefazolin Sodium/Dextrose (Ancef) 2 gm in 50 mls @ 100 mls/hr IV Q8H [facility] Last Infusion: 10/03/22 08:32 Dose: 0 mls/hr Documented By: OSCAR Insulin Glargine (Insulin Glargine,Hum.Rec.Anlog 100 Unit/Ml 10 Ml Vial) 8 unit SUBCUT DAILY [facility] Last Admin: 10/03/22 07:48 Dose: 8 unit Documented By: OSCAR Insulin Human Lispro (Insulin Lispro 100 Unit/Ml 3 Ml Vial) 0 unit SUBCUT QIDACHS [facility]; Protocol Last Admin: 10/03/22 07:49 Dose: 2 unit Documented By: OSCAR Melatonin (Melatonin 3 Mg Tablet) 6 mg PO BEDTIME PRN PRN Reason: insomnia Last Admin: 10/03/22 00:53 Dose: 6 mg Documented By: CORINA Metformin HCl (Metformin Hcl 1,000 Mg Tablet) 1,000 mg PO BIDWM [facility] Last Admin: 10/03/22 07:48 Dose: 1,000 mg Documented By: OSCAR Ondansetron HCl (Ondansetron Hcl 4 Mg/2 Ml Vial) 4 mg IVPUSH Q8H PRN PRN Reason: Nausea and Vomiting Pharmacy Consult (Consult Rx Perform Med Rec) 1 each MISCELLANE ONCE PRN PRN Reason: Consult order Sertraline HCl (Sertraline Hcl 100 Mg Tablet) 100 mg PO DAILY [facility] Last Admin: 10/03/22 07:48 Dose: 100 mg Documented By: OSCAR Sodium Chloride (0.9 % Sodium Chloride Flush 3 Ml Syringe) 3 ml IVFLUSH QSHIFT [facility] Last Admin: 10/03/22 07:57 Dose: 3 ml Documented By: OSCAR Vitamin D (Cholecalciferol (Vitamin D3) 25 Mcg Tablet) 25 mcg PO DAILY [facility] Last Admin: 10/03/22 07:48 Dose: 25 mcg Documented By: OSCAR Labs 09/27/22 05:26 09/29/22 05:19 Labs: Laboratory Results - last 24 hr 10/02/22 10/02/22 10/02/22 11:13 16:25 20:23 POC Glucose 213 H 187 H 169 H 10/03/22 07:14 POC Glucose 153 H Microbiology Microbiology Results: Microbiology 09/27/22 13:36 Blood Culture - Final Blood - Venous No growth after 5 days. 09/30/22 06:05 Blood Culture - Preliminary Blood - Venous No growth after 48 hours. 09/30/22 06:04 Blood Culture - Preliminary Blood - Venous No growth after 48 hours. Assessment and Plan (1) Staphylococcus aureus bacteremia: Status: Acute (2) Central line infection: Status: Acute Plan 77F past medical history that includes HTN HLD, JHONNY secondary to rhabdomyolysis in June that required hemodialysis with a PermCath in place presented to the hospital with weakness severe sepsis due to MSSA bacteremia due to permacath permacath now removed cultures still positive from 09/27/22, plan for 4 weeks iv ancef via picc (okay with nephro), end date would be 10/26/22 if remains negative from 09/29/22 echo - no vegetations recent jhonny due to rhabdo resolved, no longer on HD DM with hyperglcemia insulin, metformin permanent A flutter continue eliquis HTN not on home meds, started on amlodipine 5mg daily mood disorder zoloft klonipin thorazine hld statin DVT ppx: Eliquis full code reason for continued hospitalization:needs access and set up for outpatient iv abx Time Spent With Patient Time: Total time managing care of this patient today ____ minutes. Quality Stroke Does the patient have a stroke diagnosis?: No VTE Prior VTE?: No VTE Risk Level:: Medical - moderate - high VTE Device Contraindication: Treatment Not Indicated VTE Drug Contraindication: N/A - Med Ordered
[2022-10-03 11:35] LABS: Glucose, Whole Blood 216 mg/dL (60-115)
[2022-10-03 16:35] LABS: Glucose, Whole Blood 200 mg/dL (60-115)
[2022-10-03 19:54] LABS: Glucose, Whole Blood 169 mg/dL (60-115)
[2022-10-03] MEDS: chlorproMAZINE HCl 25 MG TABLET 50 MG PO (20:21)
[2022-10-04] MEDS: ceFAZolin Sodium/Dextrose,Iso 2 GM/50 ML PIGGYBACK IV ×3 (01:04→17:15)
[2022-10-04 03:30] VITALS: BP 151/67; PULSE 62; RESP 14; TEMP 36.4; O2SAT 92
[2022-10-04 06:00] VITALS: BMI 25.3
[2022-10-04 07:06] VITALS: BP 187/79; PULSE 58; RESP 16; TEMP 36.3; O2SAT 94
[2022-10-04 07:33] LABS: Glucose, Whole Blood 125 mg/dL (60-115)
[2022-10-04] MEDS: 0.9 % Sodium Chloride Flush 3 ML SYRINGE IVFLUSH ×3 (08:35→20:47)
[2022-10-04] MEDS: Sertraline HCL 100 MG TABLET PO (08:36)
[2022-10-04] MEDS: Atorvastatin Calcium 20 MG TABLET PO (08:36)
[2022-10-04] MEDS: Cholecalciferol (Vitamin D3) 25 MCG TABLET PO (08:36)
[2022-10-04] MEDS: Folic Acid 1 MG TABLET PO (08:36)
[2022-10-04] MEDS: Cholestyramine (With Sugar) 4 GM POWD.PACK PO (08:36)
[2022-10-04] MEDS: Cyanocobalamin (Vitamin B-12) 1,000 MCG TABLET 1000 MCG PO (08:36)
[2022-10-04] MEDS: metFORMIN HCl 1,000 MG TABLET 1000 MG PO ×2 (08:36→17:15)
[2022-10-04] MEDS: clonazePAM 1 MG TABLET PO ×2 (08:36→20:47)
[2022-10-04] MEDS: Insulin Glargine,Hum.rec.anlog 100 UNIT/ML 10 ML VIAL 8 UNIT SUBCUT (08:36)
[2022-10-04] MEDS: Apixaban 2.5 MG TABLET PO ×2 (08:36→20:46)
[2022-10-04] MEDS: amLODIPine Besylate 5 MG TABLET PO (08:36)
--- NOTE | 2022-10-04 11:17 | HO.PM.IMPN ---
Subjective Subjective Date of Service: 10/04/22 Interval History: no complaints Physical Exam Vital Signs: Vital Signs: Last Vital Signs Temp 97.4 F 10/04/22 07:06 Pulse 58 10/04/22 07:06 Resp 16 10/04/22 07:06 BP 187/79 H 10/04/22 07:06 Pulse Ox 94 10/04/22 07:06 O2 Del Method Room Air 10/04/22 07:06 BMI result Body Mass Index 25.3 General: AO X 3, no acute distress Resp: CTA bilateral, no accessory muscles used CVS: S1,S2,RRR GI: soft, non tender, non distended Neuro: motor grossly intact, alert Psych: appropriate affect, appropriate insight Objective Data Active Medications Acetaminophen (Acetaminophen 325 Mg Tablet) 650 mg PO Q6H PRN PRN Reason: Pain, Mild (Pain Scale 1-3) Last Admin: 10/02/22 07:58 Dose: 650 mg Documented By: WENDIE Acetaminophen (Acetaminophen 325 Mg Tablet) 650 mg PO Q6H PRN PRN Reason: Pain, Moderate (Pain Scale 4-6 Last Admin: 09/28/22 05:13 Dose: 650 mg Documented By: DAPHNIE Amlodipine Besylate (Amlodipine Besylate 5 Mg Tablet) 5 mg PO DAILY [facility]; Protocol Last Admin: 10/04/22 08:36 Dose: 5 mg Documented By: OSCAR Apixaban (Apixaban 2.5 Mg Tablet) 2.5 mg PO BID [facility] Last Admin: 10/04/22 08:36 Dose: 2.5 mg Documented By: OSCAR Atorvastatin Calcium (Atorvastatin Calcium 20 Mg Tablet) 20 mg PO DAILY [facility] Last Admin: 10/04/22 08:36 Dose: 20 mg Documented By: OSCAR Chlorpromazine HCl (Chlorpromazine Hcl 25 Mg Tablet) 50 mg PO BEDTIME [facility] Last Admin: 10/03/22 20:21 Dose: 50 mg Documented By: CORINA Cholestyramine Resin (Cholestyramine (With Sugar) 4 Gm Powd.Pack) 4 gm PO DAILY [facility] Last Admin: 10/04/22 08:36 Dose: 4 gm Documented By: OSCAR Clonazepam (Clonazepam 1 Mg Tablet) 1 mg PO BID [facility] Last Admin: 10/04/22 08:36 Dose: 1 mg Documented By: OSCAR Cyanocobalamin (Cyanocobalamin (Vitamin B-12) 1,000 Mcg Tablet) 1,000 mcg PO DAILY [facility] Last Admin: 10/04/22 08:36 Dose: 1,000 mcg Documented By: OSCAR Folic Acid (Folic Acid 1 Mg Tablet) 1 mg PO DAILY [facility] Last Admin: 10/04/22 08:36 Dose: 1 mg Documented By: OSCAR Glucose (Glucose Gel 15 Gm Gel..Gram.) 15 gm PO Q15M PRN; Protocol PRN Reason: per Hypoglycemia Standing Ord. Dextrose (D10) 250 mls @ 750 mls/hr IV Q15M PRN; Protocol PRN Reason: per Hypoglycemia Standing Ord. Cefazolin Sodium/Dextrose (Ancef) 2 gm in 50 mls @ 100 mls/hr IV Q8H [facility] Last Infusion: 10/04/22 09:20 Dose: 0 mls/hr Documented By: OSCAR Insulin Glargine (Insulin Glargine,Hum.Rec.Anlog 100 Unit/Ml 10 Ml Vial) 8 unit SUBCUT DAILY [facility] Last Admin: 10/04/22 08:36 Dose: 8 unit Documented By: OSCAR Insulin Human Lispro (Insulin Lispro 100 Unit/Ml 3 Ml Vial) 0 unit SUBCUT QIDACHS [facility]; Protocol Last Admin: 10/04/22 08:34 Dose: Not Given Documented By: OSCAR Non-Admin Reason: No Insulin Coverage Melatonin (Melatonin 3 Mg Tablet) 6 mg PO BEDTIME PRN PRN Reason: insomnia Last Admin: 10/03/22 00:53 Dose: 6 mg Documented By: CORINA Metformin HCl (Metformin Hcl 1,000 Mg Tablet) 1,000 mg PO BIDWM [facility] Last Admin: 10/04/22 08:36 Dose: 1,000 mg Documented By: OSCAR Ondansetron HCl (Ondansetron Hcl 4 Mg/2 Ml Vial) 4 mg IVPUSH Q8H PRN PRN Reason: Nausea and Vomiting Pharmacy Consult (Consult Rx Perform Med Rec) 1 each MISCELLANE ONCE PRN PRN Reason: Consult order Sertraline HCl (Sertraline Hcl 100 Mg Tablet) 100 mg PO DAILY [facility] Last Admin: 10/04/22 08:36 Dose: 100 mg Documented By: OSCAR Sodium Chloride (0.9 % Sodium Chloride Flush 3 Ml Syringe) 3 ml IVFLUSH QSHIFT [facility] Last Admin: 10/04/22 08:35 Dose: 3 ml Documented By: OSCAR Vitamin D (Cholecalciferol (Vitamin D3) 25 Mcg Tablet) 25 mcg PO DAILY [facility] Last Admin: 10/04/22 08:36 Dose: 25 mcg Documented By: OSCAR Labs 09/27/22 05:26 09/29/22 05:19 Labs: Laboratory Results - last 24 hr 10/03/22 10/03/22 10/03/22 11:08 16:31 19:47 POC Glucose 216 H 200 H 169 H 10/04/22 07:10 POC Glucose 125 H Assessment and Plan (1) Staphylococcus aureus bacteremia: Status: Acute (2) Central line infection: Status: Acute Plan 77F past medical history that includes HTN HLD, JHONNY secondary to rhabdomyolysis in June that required hemodialysis with a PermCath in place presented to the hospital with weakness severe sepsis due to MSSA bacteremia due to permacath permacath now removed cultures positive from 09/27/22, plan for 4 weeks iv ancef via picc (okay with nephro), end date would be 10/27/22 if remains negative from 09/30/22 echo - no vegetations at this time patient refusing picc/midline, requesting oral treatment, patient aware this is not standard of care and has higher risk of failure. patient's daughter would like oppurtunity to discuss with patient. recent jhonny due to rhabdo resolved, no longer on HD DM with hyperglcemia insulin, metformin permanent A flutter continue eliquis HTN not on home meds, started on amlodipine 5mg daily mood disorder zoloft klonipin thorazine hld statin DVT ppx: Eliquis full code reason for continued hospitalization: dispo to be determined - home on orals vs SNF with iv abx Time Spent With Patient Time: Total time managing care of this patient today ____ minutes. Quality Stroke Does the patient have a stroke diagnosis?: No VTE Prior VTE?: No VTE Risk Level:: Medical - moderate - high VTE Device Contraindication: Treatment Not Indicated VTE Drug Contraindication: N/A - Med Ordered
[2022-10-04 11:58] LABS: Glucose, Whole Blood 230 mg/dL (60-115)
[2022-10-04 12:00] VITALS: O2SAT 94
[2022-10-04] MEDS: Insulin Lispro 100 UNIT/ML 3 ML VIAL SUBCUT ×2 (12:17→20:47)
[2022-10-04 15:45] VITALS: BP 155/78; PULSE 59; RESP 18; O2SAT 95
[2022-10-04 16:25] LABS: Glucose, Whole Blood 150 mg/dL (60-115)
[2022-10-04 19:22] VITALS: BP 164/72; PULSE 54; RESP 16; TEMP 36.1; O2SAT 95
[2022-10-04 20:38] LABS: Glucose, Whole Blood 191 mg/dL (60-115)
[2022-10-04] MEDS: Acetaminophen 325 MG TABLET 650 MG PO (20:46)
[2022-10-04] MEDS: chlorproMAZINE HCl 25 MG TABLET 50 MG PO (20:46)
[2022-10-05] VITALS (7 sets, daily range): BP systolic 144–186; BP diastolic 68–79; PULSE 52–68; RESP 16–18; TEMP 36–36.4; O2SAT 94–96; BMI 25.7
[2022-10-05] MEDS: ceFAZolin Sodium/Dextrose,Iso 2 GM/50 ML PIGGYBACK IV ×3 (01:29→16:25)
[2022-10-05 07:29] LABS: Glucose, Whole Blood 140 mg/dL (60-115)
[2022-10-05] MEDS: Sertraline HCL 100 MG TABLET PO (08:21)
[2022-10-05] MEDS: Cholestyramine (With Sugar) 4 GM POWD.PACK PO (08:21)
[2022-10-05] MEDS: metFORMIN HCl 1,000 MG TABLET 1000 MG PO ×2 (08:22→16:25)
[2022-10-05] MEDS: clonazePAM 1 MG TABLET PO ×2 (08:22→20:55)
[2022-10-05] MEDS: Insulin Glargine,Hum.rec.anlog 100 UNIT/ML 10 ML VIAL 8 UNIT SUBCUT (08:22)
[2022-10-05] MEDS: Apixaban 2.5 MG TABLET PO ×2 (08:22→20:55)
[2022-10-05] MEDS: Folic Acid 1 MG TABLET PO (08:22)
[2022-10-05] MEDS: amLODIPine Besylate 5 MG TABLET PO (08:22)
[2022-10-05] MEDS: Cholecalciferol (Vitamin D3) 25 MCG TABLET PO (08:22)
[2022-10-05] MEDS: Cyanocobalamin (Vitamin B-12) 1,000 MCG TABLET 1000 MCG PO (08:22)
[2022-10-05] MEDS: Atorvastatin Calcium 20 MG TABLET PO (08:22)
[2022-10-05 11:32] LABS: Glucose, Whole Blood 187 mg/dL (60-115)
--- NOTE | 2022-10-05 11:52 | MHC.CM.PN ---
[facility] [place]
[2022-10-05] MEDS: Insulin Lispro 100 UNIT/ML 3 ML VIAL SUBCUT (11:55)
--- NOTE | 2022-10-05 14:23 | HO.MIDLINE ---
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 Using ultrasound guidance, the right brachial vein access was obtained in a single attempt by this RN. a 20 guage 8cm Non-PASV Midline was positioned. The procedure was performed in S272. Ultrasound was used to document vein patency and for needle entry. A formal ultrasound picture was recorded. [facility] has released the line for use and it is currently dressed with a StatLock, Tegaderm, and CHG disc. Verification has been performed for blood return and line patency. Arm Circumference: 27 cm Equipment: [employer] Power[employer] ST Midline Catheter Type: 20 guage 8 cm Non-PASV Lot #: [id number]
--- NOTE | 2022-10-05 14:33 | P.PNIM_ITS ---
Subjective Subjective Date of Service: 10/05/22 Interval History: No acute events overnight. Awaiting midline Review of Systems Denies chest pain Denies shortness of breath Denies nausea vomiting diarrhea Denies fever chills Physical Exam Vital Signs: Vital Signs: Last Vital Signs Temp 97.3 F 10/05/22 07:16 Pulse 52 10/05/22 11:24 Resp 18 10/05/22 11:24 BP 166/71 H 10/05/22 11:24 Pulse Ox 95 10/05/22 11:24 O2 Del Method Room Air 10/05/22 11:24 BMI result Body Mass Index 25.7 Const: Other: No acute distress Resp: Other: Clear to auscultation bilaterally no rales rhonchi wheezes Cardio: Other: No S4; positive S1-S2; no S3 murmurs rubs gallops Extrem: Other: No edema bilaterally Objective Data Active Medications Acetaminophen (Acetaminophen 325 Mg Tablet) 650 mg PO Q6H PRN PRN Reason: Pain, Mild (Pain Scale 1-3) Last Admin: 10/04/22 20:46 Dose: 650 mg Documented By: WILLARD Acetaminophen (Acetaminophen 325 Mg Tablet) 650 mg PO Q6H PRN PRN Reason: Pain, Moderate (Pain Scale 4-6 Last Admin: 09/28/22 05:13 Dose: 650 mg Documented By: DAPHNIE Amlodipine Besylate (Amlodipine Besylate 5 Mg Tablet) 5 mg PO DAILY [facility]; Protocol Last Admin: 10/05/22 08:22 Dose: 5 mg Documented By: ANAHI-KRISTI Apixaban (Apixaban 2.5 Mg Tablet) 2.5 mg PO BID [facility] Last Admin: 10/05/22 08:22 Dose: 2.5 mg Documented By: JUAN CARLOS Atorvastatin Calcium (Atorvastatin Calcium 20 Mg Tablet) 20 mg PO DAILY [facility] Last Admin: 10/05/22 08:22 Dose: 20 mg Documented By: JUAN CARLOS Chlorpromazine HCl (Chlorpromazine Hcl 25 Mg Tablet) 50 mg PO BEDTIME [facility] Last Admin: 10/04/22 20:46 Dose: 50 mg Documented By: WILLARD Cholestyramine Resin (Cholestyramine (With Sugar) 4 Gm Powd.Pack) 4 gm PO DAILY [facility] Last Admin: 10/05/22 08:21 Dose: 4 gm Documented By: JUAN CARLOS Clonazepam (Clonazepam 1 Mg Tablet) 1 mg PO BID [facility] Last Admin: 10/05/22 08:22 Dose: 1 mg Documented By: JUAN CARLOS Cyanocobalamin (Cyanocobalamin (Vitamin B-12) 1,000 Mcg Tablet) 1,000 mcg PO DAILY [facility] Last Admin: 10/05/22 08:22 Dose: 1,000 mcg Documented By: ANAHI-KRISTI Folic Acid (Folic Acid 1 Mg Tablet) 1 mg PO DAILY [facility] Last Admin: 10/05/22 08:22 Dose: 1 mg Documented By: JUAN CARLOS Glucose (Glucose Gel 15 Gm Gel..Gram.) 15 gm PO Q15M PRN; Protocol PRN Reason: per Hypoglycemia Standing Ord. Dextrose (D10) 250 mls @ 750 mls/hr IV Q15M PRN; Protocol PRN Reason: per Hypoglycemia Standing Ord. Cefazolin Sodium/Dextrose (Ancef) 2 gm in 50 mls @ 100 mls/hr IV Q8H [facility] Last Infusion: 10/05/22 09:00 Dose: 0 mls/hr Documented By: ANAHI-KRISTI Insulin Glargine (Insulin Glargine,Hum.Rec.Anlog 100 Unit/Ml 10 Ml Vial) 8 unit SUBCUT DAILY [facility] Last Admin: 10/05/22 08:22 Dose: 8 unit Documented By: JUAN CARLOS Insulin Human Lispro (Insulin Lispro 100 Unit/Ml 3 Ml Vial) 0 unit SUBCUT QIDACHS [facility]; Protocol Last Admin: 10/05/22 11:55 Dose: 2 unit Documented By: JUAN CARLOS Melatonin (Melatonin 3 Mg Tablet) 6 mg PO BEDTIME PRN PRN Reason: insomnia Last Admin: 10/03/22 00:53 Dose: 6 mg Documented By: CORINA Metformin HCl (Metformin Hcl 1,000 Mg Tablet) 1,000 mg PO BIDWM [facility] Last Admin: 10/05/22 08:22 Dose: 1,000 mg Documented By: ANAHI-KRISTI Ondansetron HCl (Ondansetron Hcl 4 Mg/2 Ml Vial) 4 mg IVPUSH Q8H PRN PRN Reason: Nausea and Vomiting Pharmacy Consult (Consult Rx Perform Med Rec) 1 each MISCELLANE ONCE PRN PRN Reason: Consult order Sertraline HCl (Sertraline Hcl 100 Mg Tablet) 100 mg PO DAILY [facility] Last Admin: 10/05/22 08:21 Dose: 100 mg Documented By: JUAN CARLOS Sodium Chloride (0.9 % Sodium Chloride Flush 3 Ml Syringe) 3 ml IVFLUSH QSHIFT [facility] Last Admin: 10/05/22 13:53 Dose: Not Given Documented By: JUAN CARLOS Non-Admin Reason: See Note Sodium Chloride (0.9 % Sodium Chloride Flush 10 Ml Syringe) 5 ml IVFLUSH TID [facility] Last Admin: 10/05/22 14:30 Dose: Not Given Documented By: JUAN CARLOS Non-Admin Reason: See Note Vitamin D (Cholecalciferol (Vitamin D3) 25 Mcg Tablet) 25 mcg PO DAILY [facility] Last Admin: 10/05/22 08:22 Dose: 25 mcg Documented By: JUAN CARLOS Labs 09/27/22 05:26 09/29/22 05:19 Labs: Laboratory Results - last 24 hr 10/04/22 10/04/22 10/05/22 16:22 19:25 07:03 POC Glucose 150 H 191 H 140 H 10/05/22 11:28 POC Glucose 187 H Microbiology Microbiology Results: Microbiology 09/30/22 06:05 Blood Culture - Final Blood - Venous No growth after 5 days. 09/30/22 06:04 Blood Culture - Final Blood - Venous No growth after 5 days. Assessment and Plan (1) Severe sepsis: Status: Acute (2) Atrial flutter: Status: Acute Plan 77F past medical history that includes HTN HLD, JHONNY secondary to rhabdomyolysis in June that required hemodialysis with a PermCath in place presented to the hospital with weakness; subsequent cultures grew MSSA 1.Severe sepsis(MSSA bacteremia due to permacath) -PICC placed today -cultures negative -Ancef(03/16) 2.DM with hyperglcemia -acceptable control on current therapies -adjust as indicated 3.Permanent A flutter -eliquis 4.HTN -acceptable control on current therapies -adjust as indicated Eliquis Full code Requires ongoing hospitalization for IV antibiotics to treat MSSA bacteremia Time Spent With Patient Time: Total time managing care of this patient today ____ minutes. Quality Stroke Does the patient have a stroke diagnosis?: No VTE Prior VTE?: No VTE Risk Level:: Medical - moderate - high VTE Device Contraindication: Treatment Not Indicated VTE Drug Contraindication: N/A - Med Ordered
--- NOTE | 2022-10-05 14:33 | PC.NURSE ---
informed md of pt's BP no new orders at this time
[2022-10-05 16:09] LABS: Glucose, Whole Blood 107 mg/dL (60-115)
[2022-10-05 20:54] LABS: Glucose, Whole Blood 143 mg/dL (60-115)
[2022-10-05] MEDS: chlorproMAZINE HCl 25 MG TABLET 50 MG PO (20:55)
[2022-10-05] MEDS: Melatonin 3 MG TABLET 6 MG PO (20:55)
[2022-10-05] MEDS: 0.9 % Sodium Chloride Flush 10 ML SYRINGE 5 ML IVFLUSH (20:56)
[2022-10-06] MEDS: ceFAZolin Sodium/Dextrose,Iso 2 GM/50 ML PIGGYBACK IV ×3 (00:20→15:47)
[2022-10-06] MEDS: 0.9 % Sodium Chloride Flush 3 ML SYRINGE IVFLUSH ×2 (00:21→16:19)
[2022-10-06 04:00] VITALS: BP 151/69; PULSE 57; RESP 16; TEMP 36.4; O2SAT 92
[2022-10-06 06:00] VITALS: BMI 26.9
[2022-10-06 06:10] LABS: MANUAL DIFF FLAG NO
[2022-10-06 06:17] LABS: Basophils Absolute Auto 0.1 X10*3/uL (0.0-0.2); Basophils Percent Auto 0.4 % (0-2); Eosinophils Absolute Auto 0.2 X10*3/uL (0.0-0.4); Eosinophils Percent Auto 1.9 % (0-4); Hematocrit 31.8 % (37.0-47.0); Hemoglobin 10.2 g/dl (12.0-16.0); Imm Gran Abs Auto 0.07 X10*3/uL (0.00-0.03); Imm Gran Pct Auto 0.6 % (0.0-0.4); Lymphocytes Absolute Auto 2.9 X10*3/uL (1.2-4.9); Lymphocytes Percent Auto 24.5 % (20-40); Mean Corpuscular HGB Conc 32.1 g/dl (31.0-35.0); Mean Corpuscular Hemoglobin 28.4 pg (27.0-33.0); Mean Corpuscular Volume 88.6 fL (80.0-98.0); Mean Platelet Volume 9.7 fL (9.4-12.3); Monocytes Absolute Auto 0.6 X10*3/uL (0.1-1.2); Neutrophils Absolute Auto 7.9 x10*3/uL (2.0-8.3); Neutrophils Percent Auto 67.6 % (45-73); Platelet Count 403 X10*3/uL (160-400); Red Blood Count 3.59 X10*6/uL (4.20-5.50); Red Cell Distribution Width 13.5 % (11.0-16.0); White Blood Count 11.8 X10*3/uL (4.8-10.8)
[2022-10-06 06:59] LABS: Alanine Aminotransferase 7 U/L (0-31); Albumin Level 3.2 g/dL (3.5-5.0); Alkaline Phosphatase 82 U/L (39-117); Anion Gap 13 (12-20); Aspartate Amino Transferase 12 U/L (5-31); Bilirubin Total 0.2 mg/dL (0.0-1.0); Blood Urea Nitrogen 21 mg/dL (9-16); Calcium 9.5 mg/dL (8.4-10.2); Carbon Dioxide 25 mmol/L (22-29); Chloride 102 mmol/L (96-108); Creatinine Clr Calc Pharmacy 66.2; Estimated Glomerular Filt Rate > 60; Glucose Fasting 121 mg/dL (60-99); Potassium 4.4 mmol/L (3.3-5.1); Sodium 136 mmol/L (135-145); Total Protein 5.5 g/dL (6.5-8.0)
[2022-10-06 07:41] VITALS: BP 169/90; PULSE 51; RESP 18; TEMP 36.3; O2SAT 93
[2022-10-06 07:47] LABS: Glucose, Whole Blood 147 mg/dL (60-115)
[2022-10-06] MEDS: Atorvastatin Calcium 20 MG TABLET PO (10:03)
[2022-10-06] MEDS: Cholecalciferol (Vitamin D3) 25 MCG TABLET PO (10:04)
[2022-10-06] MEDS: Folic Acid 1 MG TABLET PO (10:04)
[2022-10-06] MEDS: Cyanocobalamin (Vitamin B-12) 1,000 MCG TABLET 1000 MCG PO (10:04)
[2022-10-06] MEDS: metFORMIN HCl 1,000 MG TABLET 1000 MG PO ×2 (10:05→16:22)
[2022-10-06] MEDS: Sertraline HCL 100 MG TABLET PO (10:05)
[2022-10-06] MEDS: amLODIPine Besylate 5 MG TABLET PO (10:05)
[2022-10-06] MEDS: clonazePAM 1 MG TABLET PO (10:05)
[2022-10-06] MEDS: Apixaban 2.5 MG TABLET PO (10:06)
[2022-10-06] MEDS: Insulin Glargine,Hum.rec.anlog 100 UNIT/ML 10 ML VIAL 8 UNIT SUBCUT (10:07)
[2022-10-06] MEDS: Cholestyramine (With Sugar) 4 GM POWD.PACK PO (10:10)
[2022-10-06] MEDS: 0.9 % Sodium Chloride Flush 10 ML SYRINGE 5 ML IVFLUSH ×3 (10:20→15:54)
--- NOTE | 2022-10-06 11:11 | MHC.CM.PN ---
DAUGHTER CHERRY AND PATIENT ARE BOTH AGREEABLE TO [facility] BED OFF[facility] HAS STARTED AUTH PROCESS. IMM 10/06 IN CHART
--- NOTE | 2022-10-06 11:20 | PM.DS ---
DS: Providers Provider Date of Service: 10/06/22 Date of admission: 09/24/22 02:54 Date of discharge: 10/06/22 Primary care physician: Nayan Pavon MD Consults: 09/24/22 06:58 Consult to Nephrology Routine Consulting Provider: [facility] Reason for consultation: dialysis Has provider been notified: No 09/24/22 15:49 Consult to General Surgery Routine Consulting Provider: [facility] Reason for consultation: removal of central line (no IR over weekend) Consult to Infectious Diseases Routine Consulting Provider: [facility] Reason for consultation: Gram positive bacteremia, central line infx DS: Diagnosis Discharge Diagnosis (1) Severe sepsis: Status: Acute (2) Atrial flutter: Status: Acute (3) Staphylococcus aureus bacteremia: Status: Acute DS: Summary Hospital Course Hospital Course: ?77-year-old female with past medical history of CVA, HTN, HLD, type 2 diabetes, history a flutter, presents the hospital with complaints of weakness.? Patient reports that she has been progressively getting weaker over the past few weeks, she denies having any headache or change in vision, no chest pain, no abdominal pain nausea or vomiting, no diarrhea constipation, no urinary symptoms and no lower extremity edema.? She denies any frequency urgency or dysuria.? She just states that she has had difficulty with ambulation, had 2 falls yesterday, without loss of consciousness, no chest pain, no palpitations.? She states is just generally weak with no acute complaint otherwise.?Of note patient had an extensive hospital stay in June due to acute RI, JHONNY, Rhabdo, intibated and requiring HD.? Patient currently has a PermCath in place because she is hemodialysis dependent.? She denies any pain, or drainage from the site of the PermCath.On arrival to the ED patient found to have temp of 99.9, blood pressure 180/68, WBC count of 16.5, hemoglobin of 11.1, hematocrit 33.1, INR of 1.6, sodium 131 corrected for hyperglycemia, potassium of 5.4, glucose of 464, lactic acid of 2.2, troponin of 70 increased to 79, BNP of 528, and UA that is positive for leukocyte Estrace and WBC as well as bacteria;COVID-19 negative, hospital Course Patient admitted on broad-spectrum antibiotics; subsequent blood cultures grew MSSA. No place to ID who recommended 4 weeks of IV Ancef 2 g q.8 hours. (last dose 10/25/22). As of 10/05/2022, all blood cultures negative x5 days. Midline was inserted to facilitate completion of antibiotic therapy. At this point time she is medically acceptable to transfer to short-term rehab for completion of her therapies Time Spent with Patient Time attestation: Total time managing care of this patient today ____ minutes. Discharge coordination time: Greater than 30 minutes Quality: Safe Use of Opioids Does Pt have an Active Cancer Diagnosis on the Problem List?: No Quality: Stroke Does the patient have a stroke diagnosis?: No Physical Exam Vital Signs: Vital Signs: Last Vital Signs Temp 97.4 F 10/06/22 07:41 Pulse 51 10/06/22 07:41 Resp 18 10/06/22 07:41 BP 169/90 H 10/06/22 07:41 Pulse Ox 93 10/06/22 07:41 O2 Del Method Room Air 10/06/22 07:41 BMI result Body Mass Index 26.9 Const: Other: No acute distress Resp: Other: Clear to auscultation bilaterally no rales rhonchi wheezes Cardio: Other: No S4; positive S1-S2; no S3 murmurs rubs gallops Extrem: Other: No edema bilaterally DS: Data Data Completed and Pending Completed studies during hospitalization [Text1]: Procedures Fluoroscopy of Superior Vena Cava, Guidance (06/28/22) Insertion of Endotracheal Airway into Trachea, Via Natural or Artificial Opening (06/28/22) Insertion of Infusion Device into Right Atrium, Percutaneous Approach (06/28/22) Insertion of Infusion Device into Superior Vena Cava, Percutaneous Approach (06/28/22) Insertion of Tunneled Vascular Access Device into Chest Subcutaneous Tissue and Fascia, Percutaneous Approach (06/28/22) Introduction of Vasopressor into Peripheral Vein, Percutaneous Approach (06/28/22) Performance of Urinary Filtration, Intermittent, Less than 6 Hours Per Day (06/28/22) Removal of Infusion Device from Heart, External Approach (06/28/22) Respiratory Ventilation, 24-96 Consecutive Hours (06/28/22) Labs on day of discharge: Laboratory Results - last 24 hr 10/05/22 10/05/22 10/05/22 11:28 15:59 19:27 WBC RBC Hgb Hct MCV MCH MCHC RDW Plt Count MPV Immature Gran % (Auto) Neut % (Auto) Lymph % (Auto) [place] % (Auto) Eos % (Auto) Baso % (Auto) Lymph # (Auto) [place] # (Auto) Eos # (Auto) Baso # (Auto) Abs Immat Gran (auto) Absolute Neuts (auto) Absolute Nucleated RBC Nucleated RBC % (auto) Sodium Potassium Chloride Carbon Dioxide Anion Gap BUN Creatinine Estim Creat Clear Calc Estimated GFR POC Glucose 187 H 107 143 H Fasting Glucose Calcium Total Bilirubin AST ALT Alkaline Phosphatase Total Protein Albumin 10/06/22 10/06/22 10/06/22 05:26 05:27 07:40 WBC 11.8 H RBC 3.59 L Hgb 10.2 L Hct 31.8 L MCV 88.6 MCH 28.4 MCHC 32.1 RDW 13.5 Plt Count 403 H D MPV 9.7 Immature Gran % (Auto) 0.6 H Neut % (Auto) 67.6 Lymph % (Auto) 24.5 [place] % (Auto) 5.0 Eos % (Auto) 1.9 Baso % (Auto) 0.4 Lymph # (Auto) 2.9 [place] # (Auto) 0.6 Eos # (Auto) 0.2 Baso # (Auto) 0.1 Abs Immat Gran (auto) 0.07 H Absolute Neuts (auto) 7.9 Absolute Nucleated RBC 0.000 Nucleated RBC % (auto) 0.0 Sodium 136 Potassium 4.4 D Chloride 102 Carbon Dioxide 25 Anion Gap 13 BUN 21 H Creatinine 0.75 Estim Creat Clear Calc 66.2 Estimated GFR > 60 POC Glucose 147 H Fasting Glucose 121 H Calcium 9.5 D Total Bilirubin 0.2 AST 12 ALT 7 Alkaline Phosphatase 82 Total Protein 5.5 L Albumin 3.2 L Discharge Plan Discharge Anticipated Discharge Date/Time: 10/06/22 10:52 Patient Disposition: Xfer SNF Discharge Diagnosis: Severe sepsis secondary to UTI Referrals: Emy Curtis [Outside] - 1 Week Po,Nayan Rodriguez MD [Primary Care Provider] - 1 Week Discharge Medications: New clonazepam 1 mg Tablet 1 mg PO BID Qty: 60 0RF cefazolin in dextrose (iso-os) 2 gram/50 mL Piggyback 50 ml IV Q8H 18 Days Qty: 54 0RF Rx Instructions: 2g/50 ml q8hrs x 18 days Continued cyanocobalamin (vitamin B-12) [Vitamin B-12] 1,000 mcg tablet 1,000 mcg PO DAILY 90 Days Qty: 90 2RF simvastatin 40 mg tablet 40 mg PO DAILY 90 Days Qty: 90 2RF cholecalciferol (vitamin D3) 25 mcg (1,000 unit) tablet 25 mcg PO DAILY Qty: 90 3RF Eliquis 2.5 mg tablet 2.5 mg PO BID 90 Days Qty: 180 2RF folic acid 1 mg tablet 1 mg PO DAILY Qty: 90 3RF (DME) lancets [FreeStyle Lancets] 28 gauge misc See Rx Instructions .ROUTE .MEDSUPPLY Qty: 100 3RF Rx Instructions: As directed check BS QD melatonin 3 mg Tablet 6 mg PO BEDTIME PRN (Reason: insomnia) Qty: 30 0RF acetaminophen 325 mg Tablet 650 mg PO Q6H PRN (Reason: Pain, Moderate (Pain Scale 4-6) Qty: 30 0RF sertraline 100 mg tablet 100 mg PO DAILY clonazepam 1 mg tablet 1 mg PO BID chlorpromazine 50 mg tablet 50 mg PO BEDTIME Cholestyramine Light 4 gram powder 1 ea PO DAILY Rx Instructions: mix in 2-4 ounces of beverage metformin 1,000 mg tablet 1,000 mg PO BIDWMEAL Discharge Orders: Discharge Order (Routine); Ordered 10/06/22 Ordered By: Leland Stearns Diet: Advance to usual diet Activity on Discharge: As tolerated Stand Alone Forms: Patient Portal Discharge page Care Plan Goals: Complete course of Ancef 2 g q.8 hours for a total of 28 days. Will need 18 additional days after discharge to complete this therapy Health Concerns: Continue other meds as outlined in discharge summary Plan of Treatment: As per receiving facility Assessment: See discharge summary
[2022-10-06 11:21] LABS: Glucose, Whole Blood 243 mg/dL (60-115)
[2022-10-06 12:00] VITALS: O2SAT 93
[2022-10-06] MEDS: Insulin Lispro 100 UNIT/ML 3 ML VIAL SUBCUT (12:07)
[2022-10-06 14:07] LABS: COVID-19 Test Negative (Negative); IDNOW Serial# 08D9AD1C
[2022-10-06 16:09] LABS: Glucose, Whole Blood 135 mg/dL (60-115)
== END 2022-10-06 19:00 | disposition skilled nursing facility (03) | DRG 314 ==
LOC: HO.ED 09-24 02:47 → HO.EDOVER 09-24 03:02 → HO.IMC 09-24 03:28 → HO.S3 09-29 02:06
PROVIDERS: Internal Medicine; Physician Assistant; Radiology Diagnostic Radiology; Student in an Organized Health Care Education/Training Program; Surgery; Admitting Provider Internal Medicine; Emergency Provider Emergency Medicine; PCP Internal Medicine; Visit Provider Hospitalist
PROC: 02PYX3Z Removal of Infusion Device from Great Vessel, External Approach (ICD-10-PCS; principal; 2022-09-25 12:30)
DX: T80.211A Bloodstream infection due to central venous catheter, initial encounter (principal); A41.01 Sepsis due to Methicillin susceptible Staphylococcus aureus; R65.20 Severe sepsis without septic shock; N17.0 Acute kidney failure with tubular necrosis; N39.0 Urinary tract infection, site not specified; L03.313 Cellulitis of chest wall; I48.92 Unspecified atrial flutter; D72.829 Elevated white blood cell count, unspecified; F41.1 Generalized anxiety disorder; Z20.822 Contact with and (suspected) exposure to COVID-19; Z86.73 Personal history of transient ischemic attack (TIA), and cerebral infarction without residual deficits; Y82.8 Other medical devices associated with adverse incidents; E78.5 Hyperlipidemia, unspecified; K52.9 Noninfective gastroenteritis and colitis, unspecified; I12.9 Hypertensive chronic kidney disease with stage 1 through stage 4 chronic kidney disease, or unspecified chronic kidney disease; N18.30 Chronic kidney disease, stage 3 unspecified; E11.22 Type 2 diabetes mellitus with diabetic chronic kidney disease; E11.65 Type 2 diabetes mellitus with hyperglycemia; R29.6 Repeated falls; E87.5 Hyperkalemia; Z91.81 History of falling; I25.2 Old myocardial infarction; Z87.891 Personal history of nicotine dependence; Z79.01 Long term (current) use of anticoagulants; Z79.84 Long term (current) use of oral hypoglycemic drugs; Z79.899 Other long term (current) drug therapy
CPT/HCPCS: 0241U; 36410; 36415; 70450; 71045; 72125; 73080; 73562; 74177; 80048; 80053; 80076; 80202; 81001; 82550; 82565; 82947; 83605; 83690; 83880; 84484; 85025; 85027; 85610; 85730; 87040; 87070; 87077; 87147; 87186; 87205; 87635; 93005; 93306; 97116; 97162; 97530; 99285; C1751; J0690; J2543; J3010; J3370; Q9957; Q9967

== ENCOUNTER 2022-10-28 11:59 | Emergency (ER) | payer MEDICARE, SELFPAY ==
--- NOTE | ~2022-10-28 | XR_ITS ---
EXAMINATION: Left shoulder and clavicle x-ray CLINICAL INFORMATION: Pain post fall COMPARISON: None. TECHNIQUE: 2 views of the left shoulder and one view of the left clavicle FINDINGS: There is a comminuted minimally displaced fracture of the left proximal humerus probably involving the humeral head, surgical neck and greater tuberosity. Glenohumeral alignment is normal. Mild arthritis at the acromioclavicular joint. No clavicle fracture. Soft tissues are unremarkable. XR/XR shoulder LT min 2V IMPRESSION: Comminuted minimally displaced left proximal humerus fracture.
--- NOTE | ~2022-10-28 | XR_ITS ---
EXAMINATION: Left shoulder and clavicle x-ray CLINICAL INFORMATION: Pain post fall COMPARISON: None. TECHNIQUE: 2 views of the left shoulder and one view of the left clavicle FINDINGS: There is a comminuted minimally displaced fracture of the left proximal humerus probably involving the humeral head, surgical neck and greater tuberosity. Glenohumeral alignment is normal. Mild arthritis at the acromioclavicular joint. No clavicle fracture. Soft tissues are unremarkable. XR/XR clavicle LT IMPRESSION: Comminuted minimally displaced left proximal humerus fracture.
--- NOTE | 2022-10-28 11:59 | ED.FALL ---
HPI - Fall General Chief Complaint: Extremity Injury, Upper <DIANNE Tapia - Last Filed: 10/28/22 16:18> Stated Complaint: Fall, L arm pain per EMS <DIANNE Tapia - Last Filed: 10/28/22 16:18> Source: patient, EMS, RN notes reviewed and old records reviewed <DIANNE Tapia - Last Filed: 10/28/22 16:18> Mode of arrival: EMS <DIANNE Tapia - Last Filed: 10/28/22 16:18> History of Present Illness HPI Narrative: 77-year-old female with past medical history CVA, HLD, HTN, hyponatremia, obesity, osteoarthritis, diabetes, atrial flutter on Eliquis, recently discharged from our facility on 10/06 for severe sepsis, blood cultures grew MSSA, presenting to the ED complaining of left shoulder pain s/p mechanical fall around 8AM this morning with walker. Denies symptoms prior to fall including lightheadedness/dizziness, CP/SOB. Per EMS patient originally signed refusal then called EMS back due to continued LUE pain. Patient admits was recently discharged from short-term rehab on Monday, lives home alone. Denies other symptoms at present including neck/back pain, CP/SOB, abdominal pain, numbness/tingling, weakness <DIANNE Tapia - Last Filed: 10/28/22 16:18> MD complaint: fall <DIANNE Tapia - Last Filed: 10/28/22 16:18> Onset (ago): hour(s) <DIANNE Tapia - Last Filed: 10/28/22 16:18> Related Data Home Medications: Home Medications Medication Instructions Recorded Confirmed metformin 1,000 mg tablet 1,000 mg PO BIDWMEAL 08/05/22 10/28/22 chlorpromazine 50 mg tablet 50 mg PO BEDTIME 09/24/22 10/28/22 cholestyramine-aspartame 4 gram 1 ea PO DAILY diarrhea 09/24/22 10/28/22 oral powder (Cholestyramine Light) sertraline 100 mg tablet 100 mg PO DAILY 09/24/22 09/24/22 Previous Rx's Medication Instructions Recorded cyanocobalamin (vitamin B-12) 1,000 mcg PO DAILY 90 days #90 caps 07/15/21 1,000 mcg tablet (Vitamin B-12) simvastatin 40 mg tablet 40 mg PO DAILY 90 days #90 tabs 06/06/22 acetaminophen 325 mg tablet 650 mg PO Q6H PRN Pain, Moderate 07/15/22 (Pain Scale 4-6 #30 tabs melatonin 3 mg tablet 6 mg PO BEDTIME PRN insomnia #30 07/15/22 tabs cholecalciferol (vitamin D3) 25 25 mcg PO DAILY #90 caps 08/03/22 mcg (1,000 unit) tablet apixaban 2.5 mg tablet (Eliquis) 2.5 mg PO BID 90 days #180 tabs 08/23/22 folic acid 1 mg tablet 1 mg PO DAILY #90 tabs 09/05/22 lancets 28 gauge (FreeStyle #100 ea 09/12/22 Lancets) clonazepam 1 mg tablet 1 mg PO BID #60 tabs 10/06/22 clonazepam 1 mg tablet (Klonopin) 1 mg PO BEDTIME #7 tabs 11/01/22 oxycodone 5 mg tablet 5 mg PO Q6H PRN pain #7 tabs 11/01/22 <DIANNE Tapia - Last Filed: 10/28/22 16:18> Allergies/Adverse Reactions: Allergies Allergy/AdvReac Type Severity Reaction Status Date / Time No Known Allergies Allergy Verified 10/28/22 20:18 [No Known Allergies*] <DIANNE Tapia Last Filed: 10/28/22 16:18> Review of Systems Review of Systems: Constitutional: No Fever, No Chills, No Fatigue, No Malaise ENT/Mouth: No Nasal Congestion, No sore throat, No Rhinorrhea, No Swallowing Difficulty Eyes: No Eye Pain, No Swelling, No Redness Cardiovascular: No Chest Pain, No SOB, No Edema Respiratory: No Cough, No Sputum, No Dyspnea Gastrointestinal: No Nausea, No Vomiting, No Diarrhea, No Constipation, No Abdominal pain Genitourinary: No Dysuria, No Hematuria, No Urinary Incontinence/retention, No Flank Pain Musculoskeletal: + joint pain, No Myalgias, + Joint Swelling Skin: No Skin Lesions, No rash Neuro: No Weakness, No Numbness, No Paresthesias, No Loss of Consciousness, No Dizziness, No Headache <DIANNE Tapia - Last Filed: 10/28/22 16:18> Yes all other systems are reviewed and are negative <DIANNE Tapia - Last Filed: 10/28/22 16:18> Constitutional: Constitutional: Reports as per HPI <DIANNE Tapia - Last Filed: 10/28/22 16:18> Neurologic: Denies Abnormal speech present <DIANNE Tapia - Last Filed: 10/28/22 16:18> [facility], [facility] Past Medical History Attestation statement: The following information was validated with the patient. <DIANNE Tapia - Last Filed: 10/28/22 16:18> Source: old records reviewed <DIANNE Tapia - Last Filed: 10/28/22 16:18> Medical History: Medical History Adjustment disorder with depressed mood Annual physical exam Annual physical exam Atherosclerotic cardiovascular disease Atrial flutter Frequency of micturition Generalized anxiety disorder History of CVA (cerebrovascular accident) Hypercholesterolemia Hypertension Hyponatremia Impacted cerumen of both ears Insomnia Obesity (BMI 30.0-34.9) Osteoarthrosis Overweight (BMI 25.0-29.9) Preop exam for internal medicine Preoperative cardiovascular examination Primary osteoarthritis of left knee Second degree AV block Tobacco abuse Type 2 diabetes mellitus with hyperglycemia <DIANNE Tapia - Last Filed: 10/28/22 16:18> Surgical History: Surgical History H/O breast reconstruction History of cholecystectomy History of hip replacement History of tonsillectomy <DIANNE Tapia - Last Filed: 10/28/22 16:18> Family History Family History: Family History Father Cancer Mother Medical history unknown Brother Liver cancer Sister Hypertension COPD (chronic obstructive pulmonary disease) <DIANNE Tapia - Last Filed: 10/28/22 16:18> Social History Social History: Social History Household Members: None Housing: Apartment Do you presently have visiting nurse or other home services: No Alcohol intake: never Patient Tobacco Use Status: Former Tobacco user Quit Date: 06/2022 Tobacco use type: Cigarette Cigarettes Per Day: 2 e-Cigarette/Vaping Use: Never Used Second Hand Smoke Exposure: No Advance Directives: Yes Advance Directives on File: Yes Advance Directives Date on File: 10/07/22 service: No Current occupational status: retired Current occupation: Right Handed Cognitive needs: No Hearing needs: No Vision needs: Yes <DIANNE Tapia - Last Filed: 10/28/22 16:18> Physical Exam Vital Signs: Vital Signs: Last Vital Signs Temp 98.2 F 11/01/22 04:53 Pulse 70 11/01/22 08:10 Resp 11/01/22 08:10 BP 164/56 H 11/01/22 08:10 Pulse Ox 92 11/01/22 08:10 O2 Del Method Room Air 11/01/22 08:10 BMI result Body Mass Index 26.2 <DIANNE Tapia - Last Filed: 10/28/22 16:18> Vital Signs: Last Vital Signs Temp 98.2 F 11/01/22 04:53 Pulse 70 11/01/22 08:10 Resp 11/01/22 08:10 BP 164/56 H 11/01/22 08:10 Pulse Ox 92 11/01/22 08:10 O2 Del Method Room Air 11/01/22 08:10 BMI result Body Mass Index 26.2 <DIANNE Perez - Last Filed: 10/29/22 17:22> Vital Signs: Last Vital Signs Temp 98.2 F 11/01/22 04:53 Pulse 70 11/01/22 08:10 Resp 11/01/22 08:10 BP 164/56 H 11/01/22 08:10 Pulse Ox 92 11/01/22 08:10 O2 Del Method Room Air 11/01/22 08:10 BMI result Body Mass Index 26.2 <Ashley Iyer NP - Last Filed: 10/30/22 06:50> Vital Signs: Last Vital Signs Temp 98.2 F 11/01/22 04:53 Pulse 70 11/01/22 08:10 Resp 11/01/22 08:10 BP 164/56 H 11/01/22 08:10 Pulse Ox 92 11/01/22 08:10 O2 Del Method Room Air 11/01/22 08:10 BMI result Body Mass Index 26.2 <DIANNE Helm - Last Filed: 10/31/22 07:00> Vital Signs: Last Vital Signs Temp 98.2 F 11/01/22 04:53 Pulse 70 11/01/22 08:10 Resp 16 11/01/22 08:10 BP 164/56 H 11/01/22 08:10 Pulse Ox 92 11/01/22 08:10 O2 Del Method Room Air 11/01/22 08:10 BMI result Body Mass Index 26.2 <DIANNE Rodriguez - Last Filed: 11/01/22 09:10> Const: General: cooperative, healthy appearing, no acute distress, alert and awake <DIANNE Tapia - Last Filed: 10/28/22 16:18> Orientation/consciousness: patient oriented x3 <DIANNE Tapia - Last Filed: 10/28/22 16:18> Limitations: no limitations <DIANNE Tapia - Last Filed: 10/28/22 16:18> HEENT: Head: Yes normal to inspection and Yes atraumatic <DIANNE Tapia Last Filed: 10/28/22 16:18> Ears: hearing grossly normal bilaterally <DIANNE Tapia - Last Filed: 10/28/22 16:18> General nose exam: Normal external nose present <DIANNE Tapia Last Filed: 10/28/22 16:18> Face and sinus: Yes normal facial exam <DIANNE Tapia - Last Filed: 10/28/22 16:18> Eyes: General: appearance normal, both eyes and all related structures <DIANNE Tapia Last Filed: 10/28/22 16:18> EOM: EOMs intact bilaterally <DIANNE Tapia Last Filed: 10/28/22 16:18> Neck: Neck: Yes normal visual inspection and Yes no meningeal signs <DIANNE Tapia Last Filed: 10/28/22 16:18> Resp: Effort & Inspection: normal respiratory effort and no respiratory distress <DIANNE Tapia - Last Filed: 10/28/22 16:18> Cardio: Rate: regular rate <DIANNE Tapia - Last Filed: 10/28/22 16:18> Heart sounds: S1 normal heart sound present and S2 normal heart sound present <DIANNE Tapia - Last Filed: 10/28/22 16:18> GI: Inspection: Yes normal to inspection <DIANNE Tapia - Last Filed: 10/28/22 16:18> Palpation (GI): Soft to palpation, nontender, no guarding and not rigid <Meagan Rutherford PA - Last Filed: 10/28/22 16:18> Back/Spine/Pelvis: Other: No midline cervical/thoracic/lumbar spinous tenderness/step-off or deformity <Meagan Rutherford PA - Last Filed: 10/28/22 16:18> Skin: Rashes: no rashes <DIANNE Tapia - Last Filed: 10/28/22 16:18> Wounds: no wounds <Meagan Rutherford PA - Last Filed: 10/28/22 16:18> Neuro: General: patient oriented x3, tone normal, moves all extremities, no meningeal signs, no focal motor deficits and CN's II-XI intact bilaterally <DIANNE Tapia - Last Filed: 10/28/22 16:18> Cognition (Neuro): normal cognition <DIANNE Tapia - Last Filed: 10/28/22 16:18> Speech: No Abnormal speech present <DIANNE Tapia - Last Filed: 10/28/22 16:18> Extrem: Other: +L shoulder w/mild swelling, no deformity/erythema, +ttp with limited ROM 2/2 pain. NV intact distally <DIANNE Tapia - Last Filed: 10/28/22 16:18> Course Course Course Narrative: -1330--mild leukocytosis 10.9, improved from previous visit. H&H at patient's baseline. -magnesium low 1.1 > 2 g IV repletion ordered. Labs otherwise reassuring -1613--repeat magnesium 1.8 > will give additional p.o. Mag XR shoulder LT min 2V/XR clavicle LT IMPRESSION: Comminuted minimally displaced left proximal humerus fracture. > sling applied. At baseline patient ambulates with a walker, had lengthy discussion with patient she will be unable to ambulate with walker with her arm in a sling. Patient very reluctant & initially refusing STR. On further discussion with patient and daughter patient agreeable to go to rehab although not back to [facility]. Case management aware -physician observation initiated at 16:17 as patient needs more time for placement -1700--ED care transferred to DIANNE Anglin pending case management placement <DIANNE Tapia - Last Filed: 10/28/22 16:18> -1330--mild leukocytosis 10.9, improved from previous visit. H&H at patient's baseline. -magnesium low 1.1 > 2 g IV repletion ordered. Labs otherwise reassuring -3--repeat magnesium 1.8 > will give additional p.o. Mag XR shoulder LT min 2V/XR clavicle LT IMPRESSION: Comminuted minimally displaced left proximal humerus fracture. > sling applied. At baseline patient ambulates with a walker, had lengthy discussion with patient she will be unable to ambulate with walker with her arm in a sling. Patient very reluctant & initially refusing STR. On further discussion with patient and daughter patient agreeable to go to rehab although not back to [facility]. Case management aware -physician observation initiated at 16:17 as patient needs more time for placement -1700--ED care transferred to DIANNE Anglin pending case management placement 10/29/2022 - Physician observation continued. CM still pending placement. VS stable, no current complaints. Will continue to monitor. <DIANNE Perez - Last Filed: 10/29/22 17:22> Reevaluation(s) Reevaluation #1: [id number] pending case management involvement and possible placement in a short-term rehab. Per nursing patient has had some intermittent hypertension throughout her stay blood pressures up to 180 systolic. I did review her medications it appears that she had been taking metoprolol 25 mg until August and I am unsure why this was discontinued. I will start her on low-dose metoprolol and we can monitor her blood pressure while she is here. Nursing was also concerned that last evening patient did have some intermittent confusion. She has no focal deficits today. She is alert and oriented this morning x3. Will check UA. No focal deficits, concern for injury or falls. ?deliruim as patient has been in the ER for several days. Will continue to monitor today. Physician observation continued. <Ashley Iyer NP - Last Filed: 10/30/22 06:50> Reevaluation #2: 10/30. physician observation continued. low dose lopressor started yesterday and BP improved to 108-160 systolic. glucose 311 this morning. will change to a diabetic diet. Patient is getting PRN tylenol and oxycodone for pain. PT recommending STR. Case management on board, referrals made. Will continue to monitor. <DIANNE Helm - Last Filed: 10/31/22 07:00> Time: 06:48 <DIANNE Helm - Last Filed: 10/31/22 07:00> Reevaluation #3: 11/01/2022 0703: Physician observation continues. Patient awaiting placement. 11/01/2022 0910: Patient cleared for discharged to [facility]. <DIANNE Rodriguez - Last Filed: 11/01/22 09:10> Medications Administered Generic Name Dose Route Start Last Admin Trade Name Rileyq PRN Reason Stop Dose Admin Acetaminophen 650 mg 10/28/22 21:06 10/31/22 10:26 Acetaminophen 325 Mg Tablet PO 650 mg Q6H PRN Administration Pain, Moderate (Pain Scale 4-6 Apixaban 2.5 mg 10/29/22 09:00 11/01/22 08:13 Apixaban 2.5 Mg Tablet PO 2.5 mg BID MADELINE Administration Atorvastatin Calcium 20 mg 10/29/22 09:00 11/01/22 08:12 Atorvastatin Calcium 20 Mg Tablet PO 20 mg DAILY MADELINE Administration Chlorpromazine HCl 50 mg 10/29/22 21:00 10/31/22 20:58 Chlorpromazine Hcl 25 Mg Tablet PO 50 mg BEDTIME MADELINE Administration Cholestyramine Resin 4 gm 10/29/22 22:30 10/31/22 22:06 Cholestyramine (With Sugar) 4 Gm Powd.Pack PO 4 gm BEDTIME MADELINE Administration Clonazepam 1 mg 10/29/22 09:00 11/01/22 08:13 Clonazepam 1 Mg Tablet PO 1 mg BID MADELINE Administration Cyanocobalamin 1,000 mcg 10/29/22 09:00 11/01/22 08:12 Cyanocobalamin (Vitamin B-12) 1,000 Mcg Tablet PO 1,000 mcg DAILY MADELINE Administration Docusate Sodium 100 mg 10/30/22 09:00 11/01/22 08:13 Docusate Sodium 100 Mg Capsule PO 100 mg BID MADELINE Administration Folic Acid 1 mg 10/29/22 09:00 11/01/22 08:12 Folic Acid 1 Mg Tablet PO 1 mg DAILY MADELINE Administration Melatonin 6 mg 10/28/22 21:06 10/28/22 21:55 Melatonin 3 Mg Tablet PO 6 mg BEDTIME PRN Administration insomnia Metformin HCl 1,000 mg 10/29/22 08:00 11/01/22 08:12 Metformin Hcl 1,000 Mg Tablet PO 1,000 mg BIDWM MADELINE Administration Metoprolol Succinate 12.5 mg 10/30/22 09:00 11/01/22 08:13 Metoprolol Succinate Er 12.5 Mg Halftab.Er.24h PO 12.5 mg DAILY MADELINE Administration Protocol Oxycodone HCl 5 mg 10/29/22 18:18 11/01/22 08:18 Oxycodone Hcl Immed Release 5 Mg Tablet PO 5 mg Q6H PRN Administration Pain, Severe (Pain Scale 7-10) Vitamin D 25 mcg 10/29/22 09:00 11/01/22 08:13 Cholecalciferol (Vitamin D3) 25 Mcg Tablet PO 25 mcg DAILY MADELINE Administration Discontinued Medications Generic Name Dose Route Start Last Admin Trade Name George PRN Reason Stop Dose Admin Apixaban 2.5 mg 10/28/22 23:40 10/29/22 00:04 Apixaban 2.5 Mg Tablet PO 10/28/22 23:41 2.5 mg ONCE ONE Administration Clonazepam 1 mg 10/28/22 23:39 10/29/22 00:04 Clonazepam 1 Mg Tablet PO 10/28/22 23:40 1 mg ONCE ONE Administration Magnesium Sulfate 2 gm in 50 mls @ 25 mls/hr 10/28/22 13:28 10/28/22 17:42 Magnesium Sulfate/H2o IV 10/28/22 15:27 Infused ONCE ONE Infusion Magnesium Oxide 400 mg 10/28/22 16:15 10/28/22 17:41 Magnesium Oxide 400 Mg Tablet PO 10/28/22 16:16 400 mg ONCE ONE Administration Oxycodone HCl 5 mg 10/28/22 16:15 10/28/22 17:41 Oxycodone Hcl Immed Release 5 Mg Tablet PO 10/28/22 16:16 5 mg ONCE ONE Administration Oxycodone HCl 5 mg 10/29/22 04:45 10/29/22 04:53 Oxycodone Hcl Immed Release 5 Mg Tablet PO 10/29/22 04:46 5 mg ONCE ONE Administration <DIANNE Tapia - Last Filed: 10/28/22 16:18> Medications Administered Generic Name Dose Route Start Last Admin Trade Name Freq PRN Reason Stop Dose Admin Acetaminophen 650 mg 10/28/22 21:06 10/31/22 10:26 Acetaminophen 325 Mg Tablet PO 650 mg Q6H PRN Administration Pain, Moderate (Pain Scale 4-6 Apixaban 2.5 mg 10/29/22 09:00 11/01/22 08:13 Apixaban 2.5 Mg Tablet PO 2.5 mg BID MADELINE Administration Atorvastatin Calcium 20 mg 10/29/22 09:00 11/01/22 08:12 Atorvastatin Calcium 20 Mg Tablet PO 20 mg DAILY MADELINE Administration Chlorpromazine HCl 50 mg 10/29/22 21:00 10/31/22 20:58 Chlorpromazine Hcl 25 Mg Tablet PO 50 mg BEDTIME MADELINE Administration Cholestyramine Resin 4 gm 10/29/22 22:30 10/31/22 22:06 Cholestyramine (With Sugar) 4 Gm Powd.Pack PO 4 gm BEDTIME MADELINE Administration Clonazepam 1 mg 10/29/22 09:00 11/01/22 08:13 Clonazepam 1 Mg Tablet PO 1 mg BID MADELINE Administration Cyanocobalamin 1,000 mcg 10/29/22 09:00 11/01/22 08:12 Cyanocobalamin (Vitamin B-12) 1,000 Mcg Tablet PO 1,000 mcg DAILY MADELINE Administration Docusate Sodium 100 mg 10/30/22 09:00 11/01/22 08:13 Docusate Sodium 100 Mg Capsule PO 100 mg BID MADELINE Administration Folic Acid 1 mg 10/29/22 09:00 11/01/22 08:12 Folic Acid 1 Mg Tablet PO 1 mg DAILY MADELINE Administration Melatonin 6 mg 10/28/22 21:06 10/28/22 21:55 Melatonin 3 Mg Tablet PO 6 mg BEDTIME PRN Administration insomnia Metformin HCl 1,000 mg 10/29/22 08:00 11/01/22 08:12 Metformin Hcl 1,000 Mg Tablet PO 1,000 mg BIDWM MADELINE Administration Metoprolol Succinate 12.5 mg 10/30/22 09:00 11/01/22 08:13 Metoprolol Succinate Er 12.5 Mg Halftab.Er.24h PO 12.5 mg DAILY MADELINE Administration Protocol Oxycodone HCl 5 mg 10/29/22 18:18 11/01/22 08:18 Oxycodone Hcl Immed Release 5 Mg Tablet PO 5 mg Q6H PRN Administration Pain, Severe (Pain Scale 7-10) Vitamin D 25 mcg 10/29/22 09:00 11/01/22 08:13 Cholecalciferol (Vitamin D3) 25 Mcg Tablet PO 25 mcg DAILY MADELINE Administration Discontinued Medications Generic Name Dose Route Start Last Admin Trade Name George PRN Reason Stop Dose Admin Apixaban 2.5 mg 10/28/22 23:40 10/29/22 00:04 Apixaban 2.5 Mg Tablet PO 10/28/22 23:41 2.5 mg ONCE ONE Administration Clonazepam 1 mg 10/28/22 23:39 10/29/22 00:04 Clonazepam 1 Mg Tablet PO 10/28/22 23:40 1 mg ONCE ONE Administration Magnesium Sulfate 2 gm in 50 mls @ 25 mls/hr 10/28/22 13:28 10/28/22 17:42 Magnesium Sulfate/H2o IV 10/28/22 15:27 Infused ONCE ONE Infusion Magnesium Oxide 400 mg 10/28/22 16:15 10/28/22 17:41 Magnesium Oxide 400 Mg Tablet PO 10/28/22 16:16 400 mg ONCE ONE Administration Oxycodone HCl 5 mg 10/28/22 16:15 10/28/22 17:41 Oxycodone Hcl Immed Release 5 Mg Tablet PO 10/28/22 16:16 5 mg ONCE ONE Administration Oxycodone HCl 5 mg 10/29/22 04:45 10/29/22 04:53 Oxycodone Hcl Immed Release 5 Mg Tablet PO 10/29/22 04:46 5 mg ONCE ONE Administration <DIANNE Perez - Last Filed: 10/29/22 17:22> Medications Administered Generic Name Dose Route Start Last Admin Trade Name George PRN Reason Stop Dose Admin Acetaminophen 650 mg 10/28/22 21:06 10/31/22 10:26 Acetaminophen 325 Mg Tablet PO 650 mg Q6H PRN Administration Pain, Moderate (Pain Scale 4-6 Apixaban 2.5 mg 10/29/22 09:00 11/01/22 08:13 Apixaban 2.5 Mg Tablet PO 2.5 mg BID MADELINE Administration Atorvastatin Calcium 20 mg 10/29/22 09:00 11/01/22 08:12 Atorvastatin Calcium 20 Mg Tablet PO 20 mg DAILY MADELINE Administration Chlorpromazine HCl 50 mg 10/29/22 21:00 10/31/22 20:58 Chlorpromazine Hcl 25 Mg Tablet PO 50 mg BEDTIME MADELINE Administration Cholestyramine Resin 4 gm 10/29/22 22:30 10/31/22 22:06 Cholestyramine (With Sugar) 4 Gm Powd.Pack PO 4 gm BEDTIME MADELINE Administration Clonazepam 1 mg 10/29/22 09:00 11/01/22 08:13 Clonazepam 1 Mg Tablet PO 1 mg BID MADELINE Administration Cyanocobalamin 1,000 mcg 10/29/22 09:00 11/01/22 08:12 Cyanocobalamin (Vitamin B-12) 1,000 Mcg Tablet PO 1,000 mcg DAILY MADELINE Administration Docusate Sodium 100 mg 10/30/22 09:00 11/01/22 08:13 Docusate Sodium 100 Mg Capsule PO 100 mg BID MADELINE Administration Folic Acid 1 mg 10/29/22 09:00 11/01/22 08:12 Folic Acid 1 Mg Tablet PO 1 mg DAILY MADELINE Administration Melatonin 6 mg 10/28/22 21:06 10/28/22 21:55 Melatonin 3 Mg Tablet PO 6 mg BEDTIME PRN Administration insomnia Metformin HCl 1,000 mg 10/29/22 08:00 11/01/22 08:12 Metformin Hcl 1,000 Mg Tablet PO 1,000 mg BIDWM MADELINE Administration Metoprolol Succinate 12.5 mg 10/30/22 09:00 11/01/22 08:13 Metoprolol Succinate Er 12.5 Mg Halftab.Er.24h PO 12.5 mg DAILY MADELINE Administration Protocol Oxycodone HCl 5 mg 10/29/22 18:18 11/01/22 08:18 Oxycodone Hcl Immed Release 5 Mg Tablet PO 5 mg Q6H PRN Administration Pain, Severe (Pain Scale 7-10) Vitamin D 25 mcg 10/29/22 09:00 11/01/22 08:13 Cholecalciferol (Vitamin D3) 25 Mcg Tablet PO 25 mcg DAILY MADELINE Administration Discontinued Medications Generic Name Dose Route Start Last Admin Trade Name George PRN Reason Stop Dose Admin Apixaban 2.5 mg 10/28/22 23:40 10/29/22 00:04 Apixaban 2.5 Mg Tablet PO 10/28/22 23:41 2.5 mg ONCE ONE Administration Clonazepam 1 mg 10/28/22 23:39 10/29/22 00:04 Clonazepam 1 Mg Tablet PO 10/28/22 23:40 1 mg ONCE ONE Administration Magnesium Sulfate 2 gm in 50 mls @ 25 mls/hr 10/28/22 13:28 10/28/22 17:42 Magnesium Sulfate/H2o IV 10/28/22 15:27 Infused ONCE ONE Infusion Magnesium Oxide 400 mg 10/28/22 16:15 10/28/22 17:41 Magnesium Oxide 400 Mg Tablet PO 10/28/22 16:16 400 mg ONCE ONE Administration Oxycodone HCl 5 mg 10/28/22 16:15 10/28/22 17:41 Oxycodone Hcl Immed Release 5 Mg Tablet PO 10/28/22 16:16 5 mg ONCE ONE Administration Oxycodone HCl 5 mg 10/29/22 04:45 10/29/22 04:53 Oxycodone Hcl Immed Release 5 Mg Tablet PO 10/29/22 04:46 5 mg ONCE ONE Administration <Ashley Iyer NP - Last Filed: 10/30/22 06:50> Medications Administered Generic Name Dose Route Start Last Admin Trade Name George PRN Reason Stop Dose Admin Acetaminophen 650 mg 10/28/22 21:06 10/31/22 10:26 Acetaminophen 325 Mg Tablet PO 650 mg Q6H PRN Administration Pain, Moderate (Pain Scale 4-6 Apixaban 2.5 mg 10/29/22 09:00 11/01/22 08:13 Apixaban 2.5 Mg Tablet PO 2.5 mg BID MADELINE Administration Atorvastatin Calcium 20 mg 10/29/22 09:00 11/01/22 08:12 Atorvastatin Calcium 20 Mg Tablet PO 20 mg DAILY MADELINE Administration Chlorpromazine HCl 50 mg 10/29/22 21:00 10/31/22 20:58 Chlorpromazine Hcl 25 Mg Tablet PO 50 mg BEDTIME MADELINE Administration Cholestyramine Resin 4 gm 10/29/22 22:30 10/31/22 22:06 Cholestyramine (With Sugar) 4 Gm Powd.Pack PO 4 gm BEDTIME MADELINE Administration Clonazepam 1 mg 10/29/22 09:00 11/01/22 08:13 Clonazepam 1 Mg Tablet PO 1 mg BID MADELINE Administration Cyanocobalamin 1,000 mcg 10/29/22 09:00 11/01/22 08:12 Cyanocobalamin (Vitamin B-12) 1,000 Mcg Tablet PO 1,000 mcg DAILY MADELINE Administration Docusate Sodium 100 mg 10/30/22 09:00 11/01/22 08:13 Docusate Sodium 100 Mg Capsule PO 100 mg BID MADELINE Administration Folic Acid 1 mg 10/29/22 09:00 11/01/22 08:12 Folic Acid 1 Mg Tablet PO 1 mg DAILY MADELINE Administration Melatonin 6 mg 10/28/22 21:06 10/28/22 21:55 Melatonin 3 Mg Tablet PO 6 mg BEDTIME PRN Administration insomnia Metformin HCl 1,000 mg 10/29/22 08:00 11/01/22 08:12 Metformin Hcl 1,000 Mg Tablet PO 1,000 mg BIDWM MADELINE Administration Metoprolol Succinate 12.5 mg 10/30/22 09:00 11/01/22 08:13 Metoprolol Succinate Er 12.5 Mg Halftab.Er.24h PO 12.5 mg DAILY MADELINE Administration Protocol Oxycodone HCl 5 mg 10/29/22 18:18 11/01/22 08:18 Oxycodone Hcl Immed Release 5 Mg Tablet PO 5 mg Q6H PRN Administration Pain, Severe (Pain Scale 7-10) Vitamin D 25 mcg 10/29/22 09:00 11/01/22 08:13 Cholecalciferol (Vitamin D3) 25 Mcg Tablet PO 25 mcg DAILY MADELINE Administration Discontinued Medications Generic Name Dose Route Start Last Admin Trade Name Freq PRN Reason Stop Dose Admin Apixaban 2.5 mg 10/28/22 23:40 10/29/22 00:04 Apixaban 2.5 Mg Tablet PO 10/28/22 23:41 2.5 mg ONCE ONE Administration Clonazepam 1 mg 10/28/22 23:39 10/29/22 00:04 Clonazepam 1 Mg Tablet PO 10/28/22 23:40 1 mg ONCE ONE Administration Magnesium Sulfate 2 gm in 50 mls @ 25 mls/hr 10/28/22 13:28 10/28/22 17:42 Magnesium Sulfate/H2o IV 10/28/22 15:27 Infused ONCE ONE Infusion Magnesium Oxide 400 mg 10/28/22 16:15 10/28/22 17:41 Magnesium Oxide 400 Mg Tablet PO 10/28/22 16:16 400 mg ONCE ONE Administration Oxycodone HCl 5 mg 10/28/22 16:15 10/28/22 17:41 Oxycodone Hcl Immed Release 5 Mg Tablet PO 10/28/22 16:16 5 mg ONCE ONE Administration Oxycodone HCl 5 mg 10/29/22 04:45 10/29/22 04:53 Oxycodone Hcl Immed Release 5 Mg Tablet PO 10/29/22 04:46 5 mg ONCE ONE Administration <DIANNE Helm - Last Filed: 10/31/22 07:00> Medications Administered Generic Name Dose Route Start Last Admin Trade Name Freq PRN Reason Stop Dose Admin Acetaminophen 650 mg 10/28/22 21:06 10/31/22 10:26 Acetaminophen 325 Mg Tablet PO 650 mg Q6H PRN Administration Pain, Moderate (Pain Scale 4-6 Apixaban 2.5 mg 10/29/22 09:00 11/01/22 08:13 Apixaban 2.5 Mg Tablet PO 2.5 mg BID MADELINE Administration Atorvastatin Calcium 20 mg 10/29/22 09:00 11/01/22 08:12 Atorvastatin Calcium 20 Mg Tablet PO 20 mg DAILY MADELINE Administration Chlorpromazine HCl 50 mg 10/29/22 21:00 10/31/22 20:58 Chlorpromazine Hcl 25 Mg Tablet PO 50 mg BEDTIME MADELINE Administration Cholestyramine Resin 4 gm 10/29/22 22:30 10/31/22 22:06 Cholestyramine (With Sugar) 4 Gm Powd.Pack PO 4 gm BEDTIME MADELINE Administration Clonazepam 1 mg 10/29/22 09:00 11/01/22 08:13 Clonazepam 1 Mg Tablet PO 1 mg BID MADELINE Administration Cyanocobalamin 1,000 mcg 10/29/22 09:00 11/01/22 08:12 Cyanocobalamin (Vitamin B-12) 1,000 Mcg Tablet PO 1,000 mcg DAILY MADELINE Administration Docusate Sodium 100 mg 10/30/22 09:00 11/01/22 08:13 Docusate Sodium 100 Mg Capsule PO 100 mg BID MADELINE Administration Folic Acid 1 mg 10/29/22 09:00 11/01/22 08:12 Folic Acid 1 Mg Tablet PO 1 mg DAILY MADELINE Administration Melatonin 6 mg 10/28/22 21:06 10/28/22 21:55 Melatonin 3 Mg Tablet PO 6 mg BEDTIME PRN Administration insomnia Metformin HCl 1,000 mg 10/29/22 08:00 11/01/22 08:12 Metformin Hcl 1,000 Mg Tablet PO 1,000 mg BIDWM MADELINE Administration Metoprolol Succinate 12.5 mg 10/30/22 09:00 11/01/22 08:13 Metoprolol Succinate Er 12.5 Mg Halftab.Er.24h PO 12.5 mg DAILY MADELINE Administration Protocol Oxycodone HCl 5 mg 10/29/22 18:18 11/01/22 08:18 Oxycodone Hcl Immed Release 5 Mg Tablet PO 5 mg Q6H PRN Administration Pain, Severe (Pain Scale 7-10) Vitamin D 25 mcg 10/29/22 09:00 11/01/22 08:13 Cholecalciferol (Vitamin D3) 25 Mcg Tablet PO 25 mcg DAILY MADELINE Administration Discontinued Medications Generic Name Dose Route Start Last Admin Trade Name George PRN Reason Stop Dose Admin Apixaban 2.5 mg 10/28/22 23:40 10/29/22 00:04 Apixaban 2.5 Mg Tablet PO 10/28/22 23:41 2.5 mg ONCE ONE Administration Clonazepam 1 mg 10/28/22 23:39 10/29/22 00:04 Clonazepam 1 Mg Tablet PO 10/28/22 23:40 1 mg ONCE ONE Administration Magnesium Sulfate 2 gm in 50 mls @ 25 mls/hr 10/28/22 13:28 10/28/22 17:42 Magnesium Sulfate/H2o IV 10/28/22 15:27 Infused ONCE ONE Infusion Magnesium Oxide 400 mg 10/28/22 16:15 10/28/22 17:41 Magnesium Oxide 400 Mg Tablet PO 10/28/22 16:16 400 mg ONCE ONE Administration Oxycodone HCl 5 mg 10/28/22 16:15 10/28/22 17:41 Oxycodone Hcl Immed Release 5 Mg Tablet PO 10/28/22 16:16 5 mg ONCE ONE Administration Oxycodone HCl 5 mg 10/29/22 04:45 10/29/22 04:53 Oxycodone Hcl Immed Release 5 Mg Tablet PO 10/29/22 04:46 5 mg ONCE ONE Administration <DIANNE Rodriguez - Last Filed: 11/01/22 09:10> Medical Decision Making Medical Decision Making MDM Narrative: 77-year-old female with past medical history CVA, HLD, HTN, hyponatremia, obesity, osteoarthritis, diabetes, atrial flutter on Eliquis, recently discharged from our facility on 10/06 for severe sepsis, blood cultures grew MSSA, presenting to the ED complaining of left shoulder pain s/p mechanical fall around 8AM this morning with walker. On exam vital signs stable, NAD, nontoxic appearing, physical exam as above. A&Ox3, no focal deficits, left shoulder with noted tenderness and decreased ROM secondary to pain. No midline spinous tenderness. Lower suspicion for ACS/rhabdo. Rule out fracture and metabolic abnormalities Plan: EKG, labs, shoulder/clavicle x-ray Please refer to course for remaining clinical decision making, interpretation of labs/imaging results, and discussions with consultants and/or family members. <DIANNE Tapia - Last Filed: 10/28/22 16:18> 77-year-old female with past medical history CVA, HLD, HTN, hyponatremia, obesity, osteoarthritis, diabetes, atrial flutter on Eliquis, recently discharged from our facility on 10/06 for severe sepsis, blood cultures grew MSSA, presenting to the ED complaining of left shoulder pain s/p mechanical fall around 8AM this morning with walker. On exam vital signs stable, NAD, nontoxic appearing, physical exam as above. A&Ox3, no focal deficits, left shoulder with noted tenderness and decreased ROM secondary to pain. No midline spinous tenderness. Lower suspicion for ACS/rhabdo. Rule out fracture and metabolic abnormalities Plan: EKG, labs, shoulder/clavicle x-ray Please refer to course for remaining clinical decision making, interpretation of labs/imaging results, and discussions with consultants and/or family members. <DIANNE Rodriguez - Last Filed: 11/01/22 09:10> Differential Diagnosis Differential Diagnoses: The differential diagnosis associated with the presentation includes <DIANNE Tapia - Last Filed: 10/28/22 16:18> As above <DIANNE Tapia - Last Filed: 10/28/22 16:18> Admission/Observation Consideration of admission/observation: Escalation of care including admission/observation considered <DIANNE Tapia - Last Filed: 10/28/22 16:18> Lab Data MDM Lab Attestation statement: I reviewed the patient's lab results. <DIANNE Tapia - Last Filed: 10/28/22 16:18> Result Diagrams: 10/28/22 12:57 10/28/22 12:57 <DIANNE Tapia - Last Filed: 10/28/22 16:18> Labs: Lab Results 10/28/22 10/28/22 10/28/22 Range/Units 12:57 12:57 14:13 WBC 10.9 H (4.8-10.8) X10*3/uL RBC 3.86 L (4.20-5.50) X10*6/uL Hgb 10.7 L (12.0-16.0) g/dl Hct 32.6 L (37.0-47.0) % MCV 84.5 (80.0-98.0) fL MCH 27.7 (27.0-33.0) pg MCHC 32.8 (31.0-35.0) g/dl RDW 13.4 (11.0-16.0) % Plt Count 318 (160-400) X10*3/uL MPV 9.5 (9.4-12.3) fL Immature Gran % (Auto) 0.4 (0.0-0.4) % Neut % (Auto) 79.0 H (45-73) % Lymph % (Auto) 11.9 L (20-40) % [place] % (Auto) 7.6 (2-11) % Eos % (Auto) 0.6 (0-4) % Baso % (Auto) 0.5 (0-2) % Lymph # (Auto) 1.3 (1.2-4.9) X10*3/uL [place] # (Auto) 0.8 (0.1-1.2) X10*3/uL Eos # (Auto) 0.1 (0.0-0.4) X10*3/uL Baso # (Auto) 0.1 (0.0-0.2) X10*3/uL Abs Immat Gran (auto) 0.04 H (0.00-0.03) X10*3/uL Absolute Neuts (auto) 8.6 H (2.0-8.3) x10*3/uL Absolute Nucleated RBC 0.000 (0.0-0.012) X10*3/uL Nucleated RBC % (auto) 0.0 (0.0-0.2) /100WBC Sodium 136 (135-145) mmol/L Potassium 3.9 (3.3-5.1) mmol/L Chloride 102 (96-108) mmol/L Carbon Dioxide 26 (22-29) mmol/L Anion Gap 12 (12-20) BUN 14 (9-16) mg/dL Creatinine 0.77 (0.5-1.4) mg/dL Estim Creat Clear Calc 61.5 Estimated GFR > 60 POC Glucose (60-115) mg/dL Random Glucose 295 H (60-115) mg/dL Calcium 9.4 (8.4-10.2) mg/dL Magnesium 1.1 L* (1.6-2.6) mg/dL Total Bilirubin 0.5 (0.0-1.0) mg/dL Direct Bilirubin 0.2 (0.0-0.5) mg/dL AST 10 (5-31) U/L ALT < 5 (0-31) U/L Alkaline Phosphatase 70 (39-117) U/L Total Creatine Kinase 40 (26-140) U/L Total Protein 6.0 L (6.5-8.0) g/dL Albumin 3.5 (3.5-5.0) g/dL Urine Color Urine Appearance Urine pH (5.0-9.0) Ur Specific [place] (1.005-1.025) Urine Protein (Neg-Trace) mg/dL Urine Glucose (UA) (Negative) mg/dL Urine Ketones (Negative) mg/dL Urine Blood (Negative) Urine Nitrite (Negative) Ur Leukocyte Esterase (Negative) Urine RBC (0-2) /HPF Urine WBC (0-5) /HPF Ur Squamous Epith Cells (0-2) /HPF Urine Bacteria (None Seen) Hyaline Casts (0-2) /LPF COVID-19 (MILDRED) Negative (Negative) COVID-19 Clin Com See Note 10/28/22 10/30/22 10/30/22 Range/Units 15:06 07:20 08:09 WBC (4.8-10.8) X10*3/uL RBC (4.20-5.50) X10*6/uL Hgb (12.0-16.0) g/dl Hct (37.0-47.0) % MCV (80.0-98.0) fL MCH (27.0-33.0) pg MCHC (31.0-35.0) g/dl RDW (11.0-16.0) % Plt Count (160-400) X10*3/uL MPV (9.4-12.3) fL Immature Gran % (Auto) (0.0-0.4) % Neut % (Auto) (45-73) % Lymph % (Auto) (20-40) % [place] % (Auto) (2-11) % Eos % (Auto) (0-4) % Baso % (Auto) (0-2) % Lymph # (Auto) (1.2-4.9) X10*3/uL [place] # (Auto) (0.1-1.2) X10*3/uL Eos # (Auto) (0.0-0.4) X10*3/uL Baso # (Auto) (0.0-0.2) X10*3/uL Abs Immat Gran (auto) (0.00-0.03) X10*3/uL Absolute Neuts (auto) (2.0-8.3) x10*3/uL Absolute Nucleated RBC (0.0-0.012) X10*3/uL Nucleated RBC % (auto) (0.0-0.2) /100WBC Sodium (135-145) mmol/L Potassium (3.3-5.1) mmol/L Chloride (96-108) mmol/L Carbon Dioxide (22-29) mmol/L Anion Gap (12-20) BUN (9-16) mg/dL Creatinine (0.5-1.4) mg/dL Estim Creat Clear Calc Estimated GFR POC Glucose 311 H (60-115) mg/dL Random Glucose (60-115) mg/dL Calcium (8.4-10.2) mg/dL Magnesium 1.8 (1.6-2.6) mg/dL Total Bilirubin (0.0-1.0) mg/dL Direct Bilirubin (0.0-0.5) mg/dL AST (5-31) U/L ALT (0-31) U/L Alkaline Phosphatase (39-117) U/L Total Creatine Kinase (26-140) U/L Total Protein (6.5-8.0) g/dL Albumin (3.5-5.0) g/dL Urine Color Yellow Urine Appearance Clear Urine pH 5.5 (5.0-9.0) Ur Specific [place] 1.025 (1.005-1.025) Urine Protein 100 (2+) H (Neg-Trace) mg/dL Urine Glucose (UA) >=1000 H (Negative) mg/dL Urine Ketones Negative (Negative) mg/dL Urine Blood Negative (Negative) Urine Nitrite Negative (Negative) Ur Leukocyte Esterase Negative (Negative) Urine RBC 0-2 (0-2) /HPF Urine WBC 0-5 (0-5) /HPF Ur Squamous Epith Cells 6-10 (0-2) /HPF Urine Bacteria None Seen (None Seen) Hyaline Casts 0-2 (0-2) /LPF COVID-19 (MILDRED) (Negative) COVID-19 Clin Com 10/31/22 Range/Units 10:34 WBC (4.8-10.8) X10*3/uL RBC (4.20-5.50) X10*6/uL Hgb (12.0-16.0) g/dl Hct (37.0-47.0) % MCV (80.0-98.0) fL MCH (27.0-33.0) pg MCHC (31.0-35.0) g/dl RDW (11.0-16.0) % Plt Count (160-400) X10*3/uL MPV (9.4-12.3) fL Immature Gran % (Auto) (0.0-0.4) % Neut % (Auto) (45-73) % Lymph % (Auto) (20-40) % [place] % (Auto) (2-11) % Eos % (Auto) (0-4) % Baso % (Auto) (0-2) % Lymph # (Auto) (1.2-4.9) X10*3/uL [place] # (Auto) (0.1-1.2) X10*3/uL Eos # (Auto) (0.0-0.4) X10*3/uL Baso # (Auto) (0.0-0.2) X10*3/uL Abs Immat Gran (auto) (0.00-0.03) X10*3/uL Absolute Neuts (auto) (2.0-8.3) x10*3/uL Absolute Nucleated RBC (0.0-0.012) X10*3/uL Nucleated RBC % (auto) (0.0-0.2) /100WBC Sodium (135-145) mmol/L Potassium (3.3-5.1) mmol/L Chloride (96-108) mmol/L Carbon Dioxide (22-29) mmol/L Anion Gap (12-20) BUN (9-16) mg/dL Creatinine (0.5-1.4) mg/dL Estim Creat Clear Calc Estimated GFR POC Glucose (60-115) mg/dL Random Glucose (60-115) mg/dL Calcium (8.4-10.2) mg/dL Magnesium (1.6-2.6) mg/dL Total Bilirubin (0.0-1.0) mg/dL Direct Bilirubin (0.0-0.5) mg/dL AST (5-31) U/L ALT (0-31) U/L Alkaline Phosphatase (39-117) U/L Total Creatine Kinase (26-140) U/L Total Protein (6.5-8.0) g/dL Albumin (3.5-5.0) g/dL Urine Color Urine Appearance Urine pH (5.0-9.0) Ur Specific [place] (1.005-1.025) Urine Protein (Neg-Trace) mg/dL Urine Glucose (UA) (Negative) mg/dL Urine Ketones (Negative) mg/dL Urine Blood (Negative) Urine Nitrite (Negative) Ur Leukocyte Esterase (Negative) Urine RBC (0-2) /HPF Urine WBC (0-5) /HPF Ur Squamous Epith Cells (0-2) /HPF Urine Bacteria (None Seen) Hyaline Casts (0-2) /LPF COVID-19 (MILDRED) Negative (Negative) COVID-19 Clin Com See Note <DIANNE Tapia - Last Filed: 10/28/22 16:18> Lab Results 10/28/22 10/28/22 10/28/22 Range/Units 12:57 12:57 14:13 WBC 10.9 H (4.8-10.8) X10*3/uL RBC 3.86 L (4.20-5.50) X10*6/uL Hgb 10.7 L (12.0-16.0) g/dl Hct 32.6 L (37.0-47.0) % MCV 84.5 (80.0-98.0) fL MCH 27.7 (27.0-33.0) pg MCHC 32.8 (31.0-35.0) g/dl RDW 13.4 (11.0-16.0) % Plt Count 318 (160-400) X10*3/uL MPV 9.5 (9.4-12.3) fL Immature Gran % (Auto) 0.4 (0.0-0.4) % Neut % (Auto) 79.0 H (45-73) % Lymph % (Auto) 11.9 L (20-40) % [place] % (Auto) 7.6 (2-11) % Eos % (Auto) 0.6 (0-4) % Baso % (Auto) 0.5 (0-2) % Lymph # (Auto) 1.3 (1.2-4.9) X10*3/uL [place] # (Auto) 0.8 (0.1-1.2) X10*3/uL Eos # (Auto) 0.1 (0.0-0.4) X10*3/uL Baso # (Auto) 0.1 (0.0-0.2) X10*3/uL Abs Immat Gran (auto) 0.04 H (0.00-0.03) X10*3/uL Absolute Neuts (auto) 8.6 H (2.0-8.3) x10*3/uL Absolute Nucleated RBC 0.000 (0.0-0.012) X10*3/uL Nucleated RBC % (auto) 0.0 (0.0-0.2) /100WBC Sodium 136 (135-145) mmol/L Potassium 3.9 (3.3-5.1) mmol/L Chloride 102 (96-108) mmol/L Carbon Dioxide 26 (22-29) mmol/L Anion Gap 12 (12-20) BUN 14 (9-16) mg/dL Creatinine 0.77 (0.5-1.4) mg/dL Estim Creat Clear Calc 61.5 Estimated GFR > 60 POC Glucose (60-115) mg/dL Random Glucose 295 H (60-115) mg/dL Calcium 9.4 (8.4-10.2) mg/dL Magnesium 1.1 L* (1.6-2.6) mg/dL Total Bilirubin 0.5 (0.0-1.0) mg/dL Direct Bilirubin 0.2 (0.0-0.5) mg/dL AST 10 (5-31) U/L ALT < 5 (0-31) U/L Alkaline Phosphatase 70 (39-117) U/L Total Creatine Kinase 40 (26-140) U/L Total Protein 6.0 L (6.5-8.0) g/dL Albumin 3.5 (3.5-5.0) g/dL Urine Color Urine Appearance Urine pH (5.0-9.0) Ur Specific [place] (1.005-1.025) Urine Protein (Neg-Trace) mg/dL Urine Glucose (UA) (Negative) mg/dL Urine Ketones (Negative) mg/dL Urine Blood (Negative) Urine Nitrite (Negative) Ur Leukocyte Esterase (Negative) Urine RBC (0-2) /HPF Urine WBC (0-5) /HPF Ur Squamous Epith Cells (0-2) /HPF Urine Bacteria (None Seen) Hyaline Casts (0-2) /LPF COVID-19 (MILDRED) Negative (Negative) COVID-19 Clin Com See Note 10/28/22 10/30/22 10/30/22 Range/Units 15:06 07:20 08:09 WBC (4.8-10.8) X10*3/uL RBC (4.20-5.50) X10*6/uL Hgb (12.0-16.0) g/dl Hct (37.0-47.0) % MCV (80.0-98.0) fL MCH (27.0-33.0) pg MCHC (31.0-35.0) g/dl RDW (11.0-16.0) % Plt Count (160-400) X10*3/uL MPV (9.4-12.3) fL Immature Gran % (Auto) (0.0-0.4) % Neut % (Auto) (45-73) % Lymph % (Auto) (20-40) % [place] % (Auto) (2-11) % Eos % (Auto) (0-4) % Baso % (Auto) (0-2) % Lymph # (Auto) (1.2-4.9) X10*3/uL [place] # (Auto) (0.1-1.2) X10*3/uL Eos # (Auto) (0.0-0.4) X10*3/uL Baso # (Auto) (0.0-0.2) X10*3/uL Abs Immat Gran (auto) (0.00-0.03) X10*3/uL Absolute Neuts (auto) (2.0-8.3) x10*3/uL Absolute Nucleated RBC (0.0-0.012) X10*3/uL Nucleated RBC % (auto) (0.0-0.2) /100WBC Sodium (135-145) mmol/L Potassium (3.3-5.1) mmol/L Chloride (96-108) mmol/L Carbon Dioxide (22-29) mmol/L Anion Gap (12-20) BUN (9-16) mg/dL Creatinine (0.5-1.4) mg/dL Estim Creat Clear Calc Estimated GFR POC Glucose 311 H (60-115) mg/dL Random Glucose (60-115) mg/dL Calcium (8.4-10.2) mg/dL Magnesium 1.8 (1.6-2.6) mg/dL Total Bilirubin (0.0-1.0) mg/dL Direct Bilirubin (0.0-0.5) mg/dL AST (5-31) U/L ALT (0-31) U/L Alkaline Phosphatase (39-117) U/L Total Creatine Kinase (26-140) U/L Total Protein (6.5-8.0) g/dL Albumin (3.5-5.0) g/dL Urine Color Yellow Urine Appearance Clear Urine pH 5.5 (5.0-9.0) Ur Specific [place] 1.025 (1.005-1.025) Urine Protein 100 (2+) H (Neg-Trace) mg/dL Urine Glucose (UA) >=1000 H (Negative) mg/dL Urine Ketones Negative (Negative) mg/dL Urine Blood Negative (Negative) Urine Nitrite Negative (Negative) Ur Leukocyte Esterase Negative (Negative) Urine RBC 0-2 (0-2) /HPF Urine WBC 0-5 (0-5) /HPF Ur Squamous Epith Cells 6-10 (0-2) /HPF Urine Bacteria None Seen (None Seen) Hyaline Casts 0-2 (0-2) /LPF COVID-19 (MILDRED) (Negative) COVID-19 Clin Com 10/31/22 Range/Units 10:34 WBC (4.8-10.8) X10*3/uL RBC (4.20-5.50) X10*6/uL Hgb (12.0-16.0) g/dl Hct (37.0-47.0) % MCV (80.0-98.0) fL MCH (27.0-33.0) pg MCHC (31.0-35.0) g/dl RDW (11.0-16.0) % Plt Count (160-400) X10*3/uL MPV (9.4-12.3) fL Immature Gran % (Auto) (0.0-0.4) % Neut % (Auto) (45-73) % Lymph % (Auto) (20-40) % [place] % (Auto) (2-11) % Eos % (Auto) (0-4) % Baso % (Auto) (0-2) % Lymph # (Auto) (1.2-4.9) X10*3/uL [place] # (Auto) (0.1-1.2) X10*3/uL Eos # (Auto) (0.0-0.4) X10*3/uL Baso # (Auto) (0.0-0.2) X10*3/uL Abs Immat Gran (auto) (0.00-0.03) X10*3/uL Absolute Neuts (auto) (2.0-8.3) x10*3/uL Absolute Nucleated RBC (0.0-0.012) X10*3/uL Nucleated RBC % (auto) (0.0-0.2) /100WBC Sodium (135-145) mmol/L Potassium (3.3-5.1) mmol/L Chloride (96-108) mmol/L Carbon Dioxide (22-29) mmol/L Anion Gap (12-20) BUN (9-16) mg/dL Creatinine (0.5-1.4) mg/dL Estim Creat Clear Calc Estimated GFR POC Glucose (60-115) mg/dL Random Glucose (60-115) mg/dL Calcium (8.4-10.2) mg/dL Magnesium (1.6-2.6) mg/dL Total Bilirubin (0.0-1.0) mg/dL Direct Bilirubin (0.0-0.5) mg/dL AST (5-31) U/L ALT (0-31) U/L Alkaline Phosphatase (39-117) U/L Total Creatine Kinase (26-140) U/L Total Protein (6.5-8.0) g/dL Albumin (3.5-5.0) g/dL Urine Color Urine Appearance Urine pH (5.0-9.0) Ur Specific [place] (1.005-1.025) Urine Protein (Neg-Trace) mg/dL Urine Glucose (UA) (Negative) mg/dL Urine Ketones (Negative) mg/dL Urine Blood (Negative) Urine Nitrite (Negative) Ur Leukocyte Esterase (Negative) Urine RBC (0-2) /HPF Urine WBC (0-5) /HPF Ur Squamous Epith Cells (0-2) /HPF Urine Bacteria (None Seen) Hyaline Casts (0-2) /LPF COVID-19 (MILDRED) Negative (Negative) COVID-19 Clin Com See Note <DIANNE Perez - Last Filed: 10/29/22 17:22> Lab Results 10/28/22 10/28/22 10/28/22 Range/Units 12:57 12:57 14:13 WBC 10.9 H (4.8-10.8) X10*3/uL RBC 3.86 L (4.20-5.50) X10*6/uL Hgb 10.7 L (12.0-16.0) g/dl Hct 32.6 L (37.0-47.0) % MCV 84.5 (80.0-98.0) fL MCH 27.7 (27.0-33.0) pg MCHC 32.8 (31.0-35.0) g/dl RDW 13.4 (11.0-16.0) % Plt Count 318 (160-400) X10*3/uL MPV 9.5 (9.4-12.3) fL Immature Gran % (Auto) 0.4 (0.0-0.4) % Neut % (Auto) 79.0 H (45-73) % Lymph % (Auto) 11.9 L (20-40) % [place] % (Auto) 7.6 (2-11) % Eos % (Auto) 0.6 (0-4) % Baso % (Auto) 0.5 (0-2) % Lymph # (Auto) 1.3 (1.2-4.9) X10*3/uL [place] # (Auto) 0.8 (0.1-1.2) X10*3/uL Eos # (Auto) 0.1 (0.0-0.4) X10*3/uL Baso # (Auto) 0.1 (0.0-0.2) X10*3/uL Abs Immat Gran (auto) 0.04 H (0.00-0.03) X10*3/uL Absolute Neuts (auto) 8.6 H (2.0-8.3) x10*3/uL Absolute Nucleated RBC 0.000 (0.0-0.012) X10*3/uL Nucleated RBC % (auto) 0.0 (0.0-0.2) /100WBC Sodium 136 (135-145) mmol/L Potassium 3.9 (3.3-5.1) mmol/L Chloride 102 (96-108) mmol/L Carbon Dioxide 26 (22-29) mmol/L Anion Gap 12 (12-20) BUN 14 (9-16) mg/dL Creatinine 0.77 (0.5-1.4) mg/dL Estim Creat Clear Calc 61.5 Estimated GFR > 60 POC Glucose (60-115) mg/dL Random Glucose 295 H (60-115) mg/dL Calcium 9.4 (8.4-10.2) mg/dL Magnesium 1.1 L* (1.6-2.6) mg/dL Total Bilirubin 0.5 (0.0-1.0) mg/dL Direct Bilirubin 0.2 (0.0-0.5) mg/dL AST 10 (5-31) U/L ALT < 5 (0-31) U/L Alkaline Phosphatase 70 (39-117) U/L Total Creatine Kinase 40 (26-140) U/L Total Protein 6.0 L (6.5-8.0) g/dL Albumin 3.5 (3.5-5.0) g/dL Urine Color Urine Appearance Urine pH (5.0-9.0) Ur Specific [place] (1.005-1.025) Urine Protein (Neg-Trace) mg/dL Urine Glucose (UA) (Negative) mg/dL Urine Ketones (Negative) mg/dL Urine Blood (Negative) Urine Nitrite (Negative) Ur Leukocyte Esterase (Negative) Urine RBC (0-2) /HPF Urine WBC (0-5) /HPF Ur Squamous Epith Cells (0-2) /HPF Urine Bacteria (None Seen) Hyaline Casts (0-2) /LPF COVID-19 (MILDRED) Negative (Negative) COVID-19 Clin Com See Note 10/28/22 10/30/22 10/30/22 Range/Units 15:06 07:20 08:09 WBC (4.8-10.8) X10*3/uL RBC (4.20-5.50) X10*6/uL Hgb (12.0-16.0) g/dl Hct (37.0-47.0) % MCV (80.0-98.0) fL MCH (27.0-33.0) pg MCHC (31.0-35.0) g/dl RDW (11.0-16.0) % Plt Count (160-400) X10*3/uL MPV (9.4-12.3) fL Immature Gran % (Auto) (0.0-0.4) % Neut % (Auto) (45-73) % Lymph % (Auto) (20-40) % [place] % (Auto) (2-11) % Eos % (Auto) (0-4) % Baso % (Auto) (0-2) % Lymph # (Auto) (1.2-4.9) X10*3/uL [place] # (Auto) (0.1-1.2) X10*3/uL Eos # (Auto) (0.0-0.4) X10*3/uL Baso # (Auto) (0.0-0.2) X10*3/uL Abs Immat Gran (auto) (0.00-0.03) X10*3/uL Absolute Neuts (auto) (2.0-8.3) x10*3/uL Absolute Nucleated RBC (0.0-0.012) X10*3/uL Nucleated RBC % (auto) (0.0-0.2) /100WBC Sodium (135-145) mmol/L Potassium (3.3-5.1) mmol/L Chloride (96-108) mmol/L Carbon Dioxide (22-29) mmol/L Anion Gap (12-20) BUN (9-16) mg/dL Creatinine (0.5-1.4) mg/dL Estim Creat Clear Calc Estimated GFR POC Glucose 311 H (60-115) mg/dL Random Glucose (60-115) mg/dL Calcium (8.4-10.2) mg/dL Magnesium 1.8 (1.6-2.6) mg/dL Total Bilirubin (0.0-1.0) mg/dL Direct Bilirubin (0.0-0.5) mg/dL AST (5-31) U/L ALT (0-31) U/L Alkaline Phosphatase (39-117) U/L Total Creatine Kinase (26-140) U/L Total Protein (6.5-8.0) g/dL Albumin (3.5-5.0) g/dL Urine Color Yellow Urine Appearance Clear Urine pH 5.5 (5.0-9.0) Ur Specific [place] 1.025 (1.005-1.025) Urine Protein 100 (2+) H (Neg-Trace) mg/dL Urine Glucose (UA) >=1000 H (Negative) mg/dL Urine Ketones Negative (Negative) mg/dL Urine Blood Negative (Negative) Urine Nitrite Negative (Negative) Ur Leukocyte Esterase Negative (Negative) Urine RBC 0-2 (0-2) /HPF Urine WBC 0-5 (0-5) /HPF Ur Squamous Epith Cells 6-10 (0-2) /HPF Urine Bacteria None Seen (None Seen) Hyaline Casts 0-2 (0-2) /LPF COVID-19 (MILDRED) (Negative) COVID-19 Clin Com 10/31/22 Range/Units 10:34 WBC (4.8-10.8) X10*3/uL RBC (4.20-5.50) X10*6/uL Hgb (12.0-16.0) g/dl Hct (37.0-47.0) % MCV (80.0-98.0) fL MCH (27.0-33.0) pg MCHC (31.0-35.0) g/dl RDW (11.0-16.0) % Plt Count (160-400) X10*3/uL MPV (9.4-12.3) fL Immature Gran % (Auto) (0.0-0.4) % Neut % (Auto) (45-73) % Lymph % (Auto) (20-40) % [place] % (Auto) (2-11) % Eos % (Auto) (0-4) % Baso % (Auto) (0-2) % Lymph # (Auto) (1.2-4.9) X10*3/uL [place] # (Auto) (0.1-1.2) X10*3/uL Eos # (Auto) (0.0-0.4) X10*3/uL Baso # (Auto) (0.0-0.2) X10*3/uL Abs Immat Gran (auto) (0.00-0.03) X10*3/uL Absolute Neuts (auto) (2.0-8.3) x10*3/uL Absolute Nucleated RBC (0.0-0.012) X10*3/uL Nucleated RBC % (auto) (0.0-0.2) /100WBC Sodium (135-145) mmol/L Potassium (3.3-5.1) mmol/L Chloride (96-108) mmol/L Carbon Dioxide (22-29) mmol/L Anion Gap (12-20) BUN (9-16) mg/dL Creatinine (0.5-1.4) mg/dL Estim Creat Clear Calc Estimated GFR POC Glucose (60-115) mg/dL Random Glucose (60-115) mg/dL Calcium (8.4-10.2) mg/dL Magnesium (1.6-2.6) mg/dL Total Bilirubin (0.0-1.0) mg/dL Direct Bilirubin (0.0-0.5) mg/dL AST (5-31) U/L ALT (0-31) U/L Alkaline Phosphatase (39-117) U/L Total Creatine Kinase (26-140) U/L Total Protein (6.5-8.0) g/dL Albumin (3.5-5.0) g/dL Urine Color Urine Appearance Urine pH (5.0-9.0) Ur Specific [place] (1.005-1.025) Urine Protein (Neg-Trace) mg/dL Urine Glucose (UA) (Negative) mg/dL Urine Ketones (Negative) mg/dL Urine Blood (Negative) Urine Nitrite (Negative) Ur Leukocyte Esterase (Negative) Urine RBC (0-2) /HPF Urine WBC (0-5) /HPF Ur Squamous Epith Cells (0-2) /HPF Urine Bacteria (None Seen) Hyaline Casts (0-2) /LPF COVID-19 (MILDRED) Negative (Negative) COVID-19 Clin Com See Note <Ashley Iyer, [employer] - Last Filed: 10/30/22 06:50> Lab Results 10/28/22 10/28/22 10/28/22 Range/Units 12:57 12:57 14:13 WBC 10.9 H (4.8-10.8) X10*3/uL RBC 3.86 L (4.20-5.50) X10*6/uL Hgb 10.7 L (12.0-16.0) g/dl Hct 32.6 L (37.0-47.0) % MCV 84.5 (80.0-98.0) fL MCH 27.7 (27.0-33.0) pg MCHC 32.8 (31.0-35.0) g/dl RDW 13.4 (11.0-16.0) % Plt Count 318 (160-400) X10*3/uL MPV 9.5 (9.4-12.3) fL Immature Gran % (Auto) 0.4 (0.0-0.4) % Neut % (Auto) 79.0 H (45-73) % Lymph % (Auto) 11.9 L (20-40) % [place] % (Auto) 7.6 (2-11) % Eos % (Auto) 0.6 (0-4) % Baso % (Auto) 0.5 (0-2) % Lymph # (Auto) 1.3 (1.2-4.9) X10*3/uL [place] # (Auto) 0.8 (0.1-1.2) X10*3/uL Eos # (Auto) 0.1 (0.0-0.4) X10*3/uL Baso # (Auto) 0.1 (0.0-0.2) X10*3/uL Abs Immat Gran (auto) 0.04 H (0.00-0.03) X10*3/uL Absolute Neuts (auto) 8.6 H (2.0-8.3) x10*3/uL Absolute Nucleated RBC 0.000 (0.0-0.012) X10*3/uL Nucleated RBC % (auto) 0.0 (0.0-0.2) /100WBC Sodium 136 (135-145) mmol/L Potassium 3.9 (3.3-5.1) mmol/L Chloride 102 (96-108) mmol/L Carbon Dioxide 26 (22-29) mmol/L Anion Gap 12 (12-20) BUN 14 (9-16) mg/dL Creatinine 0.77 (0.5-1.4) mg/dL Estim Creat Clear Calc 61.5 Estimated GFR > 60 POC Glucose (60-115) mg/dL Random Glucose 295 H (60-115) mg/dL Calcium 9.4 (8.4-10.2) mg/dL Magnesium 1.1 L* (1.6-2.6) mg/dL Total Bilirubin 0.5 (0.0-1.0) mg/dL Direct Bilirubin 0.2 (0.0-0.5) mg/dL AST 10 (5-31) U/L ALT < 5 (0-31) U/L Alkaline Phosphatase 70 (39-117) U/L Total Creatine Kinase 40 (26-140) U/L Total Protein 6.0 L (6.5-8.0) g/dL Albumin 3.5 (3.5-5.0) g/dL Urine Color Urine Appearance Urine pH (5.0-9.0) Ur Specific [place] (1.005-1.025) Urine Protein (Neg-Trace) mg/dL Urine Glucose (UA) (Negative) mg/dL Urine Ketones (Negative) mg/dL Urine Blood (Negative) Urine Nitrite (Negative) Ur Leukocyte Esterase (Negative) Urine RBC (0-2) /HPF Urine WBC (0-5) /HPF Ur Squamous Epith Cells (0-2) /HPF Urine Bacteria (None Seen) Hyaline Casts (0-2) /LPF COVID-19 (MILDRED) Negative (Negative) COVID-19 Clin Com See Note 10/28/22 10/30/22 10/30/22 Range/Units 15:06 07:20 08:09 WBC (4.8-10.8) X10*3/uL RBC (4.20-5.50) X10*6/uL Hgb (12.0-16.0) g/dl Hct (37.0-47.0) % MCV (80.0-98.0) fL MCH (27.0-33.0) pg MCHC (31.0-35.0) g/dl RDW (11.0-16.0) % Plt Count (160-400) X10*3/uL MPV (9.4-12.3) fL Immature Gran % (Auto) (0.0-0.4) % Neut % (Auto) (45-73) % Lymph % (Auto) (20-40) % [place] % (Auto) (2-11) % Eos % (Auto) (0-4) % Baso % (Auto) (0-2) % Lymph # (Auto) (1.2-4.9) X10*3/uL [place] # (Auto) (0.1-1.2) X10*3/uL Eos # (Auto) (0.0-0.4) X10*3/uL Baso # (Auto) (0.0-0.2) X10*3/uL Abs Immat Gran (auto) (0.00-0.03) X10*3/uL Absolute Neuts (auto) (2.0-8.3) x10*3/uL Absolute Nucleated RBC (0.0-0.012) X10*3/uL Nucleated RBC % (auto) (0.0-0.2) /100WBC Sodium (135-145) mmol/L Potassium (3.3-5.1) mmol/L Chloride (96-108) mmol/L Carbon Dioxide (22-29) mmol/L Anion Gap (12-20) BUN (9-16) mg/dL Creatinine (0.5-1.4) mg/dL Estim Creat Clear Calc Estimated GFR POC Glucose 311 H (60-115) mg/dL Random Glucose (60-115) mg/dL Calcium (8.4-10.2) mg/dL Magnesium 1.8 (1.6-2.6) mg/dL Total Bilirubin (0.0-1.0) mg/dL Direct Bilirubin (0.0-0.5) mg/dL AST (5-31) U/L ALT (0-31) U/L Alkaline Phosphatase (39-117) U/L Total Creatine Kinase (26-140) U/L Total Protein (6.5-8.0) g/dL Albumin (3.5-5.0) g/dL Urine Color Yellow Urine Appearance Clear Urine pH 5.5 (5.0-9.0) Ur Specific [place] 1.025 (1.005-1.025) Urine Protein 100 (2+) H (Neg-Trace) mg/dL Urine Glucose (UA) >=1000 H (Negative) mg/dL Urine Ketones Negative (Negative) mg/dL Urine Blood Negative (Negative) Urine Nitrite Negative (Negative) Ur Leukocyte Esterase Negative (Negative) Urine RBC 0-2 (0-2) /HPF Urine WBC 0-5 (0-5) /HPF Ur Squamous Epith Cells 6-10 (0-2) /HPF Urine Bacteria None Seen (None Seen) Hyaline Casts 0-2 (0-2) /LPF COVID-19 (MILDRED) (Negative) COVID-19 Clin Com 10/31/22 Range/Units 10:34 WBC (4.8-10.8) X10*3/uL RBC (4.20-5.50) X10*6/uL Hgb (12.0-16.0) g/dl Hct (37.0-47.0) % MCV (80.0-98.0) fL MCH (27.0-33.0) pg MCHC (31.0-35.0) g/dl RDW (11.0-16.0) % Plt Count (160-400) X10*3/uL MPV (9.4-12.3) fL Immature Gran % (Auto) (0.0-0.4) % Neut % (Auto) (45-73) % Lymph % (Auto) (20-40) % [place] % (Auto) (2-11) % Eos % (Auto) (0-4) % Baso % (Auto) (0-2) % Lymph # (Auto) (1.2-4.9) X10*3/uL [place] # (Auto) (0.1-1.2) X10*3/uL Eos # (Auto) (0.0-0.4) X10*3/uL Baso # (Auto) (0.0-0.2) X10*3/uL Abs Immat Gran (auto) (0.00-0.03) X10*3/uL Absolute Neuts (auto) (2.0-8.3) x10*3/uL Absolute Nucleated RBC (0.0-0.012) X10*3/uL Nucleated RBC % (auto) (0.0-0.2) /100WBC Sodium (135-145) mmol/L Potassium (3.3-5.1) mmol/L Chloride (96-108) mmol/L Carbon Dioxide (22-29) mmol/L Anion Gap (12-20) BUN (9-16) mg/dL Creatinine (0.5-1.4) mg/dL Estim Creat Clear Calc Estimated GFR POC Glucose (60-115) mg/dL Random Glucose (60-115) mg/dL Calcium (8.4-10.2) mg/dL Magnesium (1.6-2.6) mg/dL Total Bilirubin (0.0-1.0) mg/dL Direct Bilirubin (0.0-0.5) mg/dL AST (5-31) U/L ALT (0-31) U/L Alkaline Phosphatase (39-117) U/L Total Creatine Kinase (26-140) U/L Total Protein (6.5-8.0) g/dL Albumin (3.5-5.0) g/dL Urine Color Urine Appearance Urine pH (5.0-9.0) Ur Specific [place] (1.005-1.025) Urine Protein (Neg-Trace) mg/dL Urine Glucose (UA) (Negative) mg/dL Urine Ketones (Negative) mg/dL Urine Blood (Negative) Urine Nitrite (Negative) Ur Leukocyte Esterase (Negative) Urine RBC (0-2) /HPF Urine WBC (0-5) /HPF Ur Squamous Epith Cells (0-2) /HPF Urine Bacteria (None Seen) Hyaline Casts (0-2) /LPF COVID-19 (MILDRED) Negative (Negative) COVID-19 Clin Com See Note <DIANNE Helm - Last Filed: 10/31/22 07:00> Lab Results 10/28/22 10/28/22 10/28/22 Range/Units 12:57 12:57 14:13 WBC 10.9 H (4.8-10.8) X10*3/uL RBC 3.86 L (4.20-5.50) X10*6/uL Hgb 10.7 L (12.0-16.0) g/dl Hct 32.6 L (37.0-47.0) % MCV 84.5 (80.0-98.0) fL MCH 27.7 (27.0-33.0) pg MCHC 32.8 (31.0-35.0) g/dl RDW 13.4 (11.0-16.0) % Plt Count 318 (160-400) X10*3/uL MPV 9.5 (9.4-12.3) fL Immature Gran % (Auto) 0.4 (0.0-0.4) % Neut % (Auto) 79.0 H (45-73) % Lymph % (Auto) 11.9 L (20-40) % [place] % (Auto) 7.6 (2-11) % Eos % (Auto) 0.6 (0-4) % Baso % (Auto) 0.5 (0-2) % Lymph # (Auto) 1.3 (1.2-4.9) X10*3/uL [place] # (Auto) 0.8 (0.1-1.2) X10*3/uL Eos # (Auto) 0.1 (0.0-0.4) X10*3/uL Baso # (Auto) 0.1 (0.0-0.2) X10*3/uL Abs Immat Gran (auto) 0.04 H (0.00-0.03) X10*3/uL Absolute Neuts (auto) 8.6 H (2.0-8.3) x10*3/uL Absolute Nucleated RBC 0.000 (0.0-0.012) X10*3/uL Nucleated RBC % (auto) 0.0 (0.0-0.2) /100WBC Sodium 136 (135-145) mmol/L Potassium 3.9 (3.3-5.1) mmol/L Chloride 102 (96-108) mmol/L Carbon Dioxide 26 (22-29) mmol/L Anion Gap 12 (12-20) BUN 14 (9-16) mg/dL Creatinine 0.77 (0.5-1.4) mg/dL Estim Creat Clear Calc 61.5 Estimated GFR > 60 POC Glucose (60-115) mg/dL Random Glucose 295 H (60-115) mg/dL Calcium 9.4 (8.4-10.2) mg/dL Magnesium 1.1 L* (1.6-2.6) mg/dL Total Bilirubin 0.5 (0.0-1.0) mg/dL Direct Bilirubin 0.2 (0.0-0.5) mg/dL AST 10 (5-31) U/L ALT < 5 (0-31) U/L Alkaline Phosphatase 70 (39-117) U/L Total Creatine Kinase 40 (26-140) U/L Total Protein 6.0 L (6.5-8.0) g/dL Albumin 3.5 (3.5-5.0) g/dL Urine Color Urine Appearance Urine pH (5.0-9.0) Ur Specific [place] (1.005-1.025) Urine Protein (Neg-Trace) mg/dL Urine Glucose (UA) (Negative) mg/dL Urine Ketones (Negative) mg/dL Urine Blood (Negative) Urine Nitrite (Negative) Ur Leukocyte Esterase (Negative) Urine RBC (0-2) /HPF Urine WBC (0-5) /HPF Ur Squamous Epith Cells (0-2) /HPF Urine Bacteria (None Seen) Hyaline Casts (0-2) /LPF COVID-19 (MILDRED) Negative (Negative) COVID-19 Clin Com See Note 10/28/22 10/30/22 10/30/22 Range/Units 15:06 07:20 08:09 WBC (4.8-10.8) X10*3/uL RBC (4.20-5.50) X10*6/uL Hgb (12.0-16.0) g/dl Hct (37.0-47.0) % MCV (80.0-98.0) fL MCH (27.0-33.0) pg MCHC (31.0-35.0) g/dl RDW (11.0-16.0) % Plt Count (160-400) X10*3/uL MPV (9.4-12.3) fL Immature Gran % (Auto) (0.0-0.4) % Neut % (Auto) (45-73) % Lymph % (Auto) (20-40) % [place] % (Auto) (2-11) % Eos % (Auto) (0-4) % Baso % (Auto) (0-2) % Lymph # (Auto) (1.2-4.9) X10*3/uL [place] # (Auto) (0.1-1.2) X10*3/uL Eos # (Auto) (0.0-0.4) X10*3/uL Baso # (Auto) (0.0-0.2) X10*3/uL Abs Immat Gran (auto) (0.00-0.03) X10*3/uL Absolute Neuts (auto) (2.0-8.3) x10*3/uL Absolute Nucleated RBC (0.0-0.012) X10*3/uL Nucleated RBC % (auto) (0.0-0.2) /100WBC Sodium (135-145) mmol/L Potassium (3.3-5.1) mmol/L Chloride (96-108) mmol/L Carbon Dioxide (22-29) mmol/L Anion Gap (12-20) BUN (9-16) mg/dL Creatinine (0.5-1.4) mg/dL Estim Creat Clear Calc Estimated GFR POC Glucose 311 H (60-115) mg/dL Random Glucose (60-115) mg/dL Calcium (8.4-10.2) mg/dL Magnesium 1.8 (1.6-2.6) mg/dL Total Bilirubin (0.0-1.0) mg/dL Direct Bilirubin (0.0-0.5) mg/dL AST (5-31) U/L ALT (0-31) U/L Alkaline Phosphatase (39-117) U/L Total Creatine Kinase (26-140) U/L Total Protein (6.5-8.0) g/dL Albumin (3.5-5.0) g/dL Urine Color Yellow Urine Appearance Clear Urine pH 5.5 (5.0-9.0) Ur Specific [place] 1.025 (1.005-1.025) Urine Protein 100 (2+) H (Neg-Trace) mg/dL Urine Glucose (UA) >=1000 H (Negative) mg/dL Urine Ketones Negative (Negative) mg/dL Urine Blood Negative (Negative) Urine Nitrite Negative (Negative) Ur Leukocyte Esterase Negative (Negative) Urine RBC 0-2 (0-2) /HPF Urine WBC 0-5 (0-5) /HPF Ur Squamous Epith Cells 6-10 (0-2) /HPF Urine Bacteria None Seen (None Seen) Hyaline Casts 0-2 (0-2) /LPF COVID-19 (MILDRED) (Negative) COVID-19 Clin Com 10/31/22 Range/Units 10:34 WBC (4.8-10.8) X10*3/uL RBC (4.20-5.50) X10*6/uL Hgb (12.0-16.0) g/dl Hct (37.0-47.0) % MCV (80.0-98.0) fL MCH (27.0-33.0) pg MCHC (31.0-35.0) g/dl RDW (11.0-16.0) % Plt Count (160-400) X10*3/uL MPV (9.4-12.3) fL Immature Gran % (Auto) (0.0-0.4) % Neut % (Auto) (45-73) % Lymph % (Auto) (20-40) % [place] % (Auto) (2-11) % Eos % (Auto) (0-4) % Baso % (Auto) (0-2) % Lymph # (Auto) (1.2-4.9) X10*3/uL [place] # (Auto) (0.1-1.2) X10*3/uL Eos # (Auto) (0.0-0.4) X10*3/uL Baso # (Auto) (0.0-0.2) X10*3/uL Abs Immat Gran (auto) (0.00-0.03) X10*3/uL Absolute Neuts (auto) (2.0-8.3) x10*3/uL Absolute Nucleated RBC (0.0-0.012) X10*3/uL Nucleated RBC % (auto) (0.0-0.2) /100WBC Sodium (135-145) mmol/L Potassium (3.3-5.1) mmol/L Chloride (96-108) mmol/L Carbon Dioxide (22-29) mmol/L Anion Gap (12-20) BUN (9-16) mg/dL Creatinine (0.5-1.4) mg/dL Estim Creat Clear Calc Estimated GFR POC Glucose (60-115) mg/dL Random Glucose (60-115) mg/dL Calcium (8.4-10.2) mg/dL Magnesium (1.6-2.6) mg/dL Total Bilirubin (0.0-1.0) mg/dL Direct Bilirubin (0.0-0.5) mg/dL AST (5-31) U/L ALT (0-31) U/L Alkaline Phosphatase (39-117) U/L Total Creatine Kinase (26-140) U/L Total Protein (6.5-8.0) g/dL Albumin (3.5-5.0) g/dL Urine Color Urine Appearance Urine pH (5.0-9.0) Ur Specific [place] (1.005-1.025) Urine Protein (Neg-Trace) mg/dL Urine Glucose (UA) (Negative) mg/dL Urine Ketones (Negative) mg/dL Urine Blood (Negative) Urine Nitrite (Negative) Ur Leukocyte Esterase (Negative) Urine RBC (0-2) /HPF Urine WBC (0-5) /HPF Ur Squamous Epith Cells (0-2) /HPF Urine Bacteria (None Seen) Hyaline Casts (0-2) /LPF COVID-19 (MILDRED) Negative (Negative) COVID-19 Clin Com See Note <DIANNE Rodriguez - Last Filed: 11/01/22 09:10> Independent Interpretation I performed an independent interpretation of an: EKG (EKG a flutter at a rate of 69. QRS 92. QTC 460. No STEMI.) <DIANNE Tapia Last Filed: 10/28/22 16:18> Radiology Impression Discussion of test interpretation with radiology: I have reviewed the radiologist's reading. <DIANNE Tapia Last Filed: 10/28/22 16:18> External Record Review External record reviewed: Inpatient record, Office record, Outpatient record, Prior outpatient labs, Prior outpatient radiology, Primary care record and Outside ED record <DIANNE Tapia Last Filed: 10/28/22 16:18> Tests considered The following testing was considered but not selected: As above <DIANNE Tapia Last Filed: 10/28/22 16:18> Discharge Plan Discharge Clinical Impression: Fracture of proximal humerus, Hypomagnesemia, Fall <DIANNE Tapia Last Filed: 10/28/22 16:18> Patient Disposition: [facility] <DIANNE Tapia Last Filed: 10/28/22 16:18> Transfer Details: [facility] <DIANNE Tapia - Last Filed: 10/28/22 16:18> [facility] <DIANNE Perez - Last Filed: 10/29/22 17:22> [facility] <Ashley Iyer NP - Last Filed: 10/30/22 06:50> [facility] <DIANNE Helm - Last Filed: 10/31/22 07:00> [facility] <DIANNE Rodriguez - Last Filed: 11/01/22 09:10> Instructions: Arm Fracture in Adults (ED) <DIANNE Tapia - Last Filed: 10/28/22 16:18> Prescriptions: New oxycodone 5 mg tablet 5 mg PO Q6H PRN (Reason: pain) Qty: 7 0RF Rx Instructions: Partial Fill upon patient request. clonazepam [Klonopin] 1 mg tablet 1 mg PO BEDTIME Qty: 7 0RF Rx Instructions: administer 30 minutes before bedtime No Action cyanocobalamin (vitamin B-12) [Vitamin B-12] 1,000 mcg tablet 1,000 mcg PO DAILY 90 Days Qty: 90 2RF simvastatin 40 mg tablet 40 mg PO DAILY 90 Days Qty: 90 2RF cholecalciferol (vitamin D3) 25 mcg (1,000 unit) tablet 25 mcg PO DAILY Qty: 90 3RF Eliquis 2.5 mg tablet 2.5 mg PO BID 90 Days Qty: 180 2RF folic acid 1 mg tablet 1 mg PO DAILY Qty: 90 3RF (DME) lancets [FreeStyle Lancets] 28 gauge misc See Rx Instructions .ROUTE .MEDSUPPLY Qty: 100 3RF Rx Instructions: As directed check BS QD melatonin 3 mg Tablet 6 mg PO BEDTIME PRN (Reason: insomnia) Qty: 30 0RF acetaminophen 325 mg Tablet 650 mg PO Q6H PRN (Reason: Pain, Moderate (Pain Scale 4-6) Qty: 30 0RF sertraline 100 mg tablet 100 mg PO DAILY chlorpromazine 50 mg tablet 50 mg PO BEDTIME Cholestyramine Light 4 gram powder 1 ea PO DAILY Rx Instructions: mix in 2-4 ounces of beverage clonazepam 1 mg Tablet 1 mg PO BID Qty: 60 0RF metformin 1,000 mg tablet 1,000 mg PO BIDWMEAL <DIANNE Tapia - Last Filed: 10/28/22 16:18> Referrals: [facility] [Provider Group] [facility] [Outside] Po,Nayan Rodriguez MD [Primary Care Provider] - <DIANNE Tapia - Last Filed: 10/28/22 16:18>
[2022-10-28 12:08] VITALS: BP 140/80; BP 185/65; PULSE 66; RESP 18; TEMP 36.7; O2SAT 94; BMI 26.2
--- NOTE | 2022-10-28 12:22 | ECG_ITS ---
Test Reason : FALL Blood Pressure : / mmHG Vent. Rate : 069 BPM Atrial Rate : 300 BPM P-R Int : 000 ms QRS Dur : 092 ms QT Int : 430 ms P-R-T Axes : 000 034 048 degrees QTc Int : 460 ms Atrial flutter with variable A-V block with premature ventricular or aberrantly conducted complexes Septal infarct (cited on or before 02-JUL-2022) Abnormal ECG When compared with ECG of 23-SEP-2022 19:30, Atrial flutter has replaced Atrial fibrillation Nonspecific T wave abnormality, worse in Lateral leads Referred By: Meagan Rutherford Electronically Signed By:SHIRA PASCUAL
--- OUTSIDE RECORDS SUMMARY | 2022-10-28 12:30 | XMS_ITS ---
Author Name Alvaro Persaud Address [address] [place] [address] Organization [facility] Address [address] [place] [place] [address] Care Team Providers Care Whittling Room Operator Name Role Phone Alvaro Persaud Unavailable [phone] PROBLEMS Type Condition ICD9-CM Code [id number] Code Onset Dates Condition Status SNOMED Code Problem Change in bowel function R19.4 Active 32302768 Problem Diarrhea, unspecified type R19.7 Active 80829947 Problem Encounter for screening for malignant neoplasm of colon Z12.11 Active 186005632 ALLERGIES No Known Allergies ENCOUNTERS Encounter Location Date Diagnosis [facility] [address] [place] [phone] Sep, [facility] [address] [place] [phone] Aug, [facility] [address] [place] [phone] Mar, Diarrhea, unspecified type R19.7 [facility] [address] [place] [phone] Nov, Diarrhea, unspecified type R19.7 and Change in bowel function R19.4 [facility] [address] [place] [phone] Sep, [facility] [address] [place] [phone] Jul, [facility] [address] [place] [phone] Mar, [facility] [address] [place] [address] Feb, [facility] [address] [place] [address] Jan, [facility] Outpatient [address] [facility] [place] [id number] Dec, [facility] [address] [place] [address] Nov, Diarrhea, unspecified type R19.7 ; Change in bowel function R19.4 and Encounter for screening for malignant neoplasm of colon Z12.11 [facility] [address] [place] [address] Nov, [facility] [address] [place] [address] October, [facility] [address] [place] [address] [place] [address] Sep, [facility] Outpatient [address] [facility] [place] [id number] May, [facility] [address] [facility] [place] [phone] Nov, IMMUNIZATIONS No Known Immunizations SOCIAL HISTORY [...] ID Subscriber Name Subscriber Date of Group [facility] [address] [place] [address] [phone] [place] [address] teresa Baugh [id number]
[2022-10-28 13:08] LABS: MANUAL DIFF FLAG NO
[2022-10-28 13:10] LABS: Basophils Absolute Auto 0.1 X10*3/uL (0.0-0.2); Basophils Percent Auto 0.5 % (0-2); Eosinophils Absolute Auto 0.1 X10*3/uL (0.0-0.4); Eosinophils Percent Auto 0.6 % (0-4); Hematocrit 32.6 % (37.0-47.0); Hemoglobin 10.7 g/dl (12.0-16.0); Imm Gran Abs Auto 0.04 X10*3/uL (0.00-0.03); Imm Gran Pct Auto 0.4 % (0.0-0.4); Lymphocytes Absolute Auto 1.3 X10*3/uL (1.2-4.9); Lymphocytes Percent Auto 11.9 % (20-40); Mean Corpuscular HGB Conc 32.8 g/dl (31.0-35.0); Mean Corpuscular Hemoglobin 27.7 pg (27.0-33.0); Mean Corpuscular Volume 84.5 fL (80.0-98.0); Mean Platelet Volume 9.5 fL (9.4-12.3); Monocytes Absolute Auto 0.8 X10*3/uL (0.1-1.2); Monocytes Percent Auto 7.6 % (2-11); Neutrophils Absolute Auto 8.6 x10*3/uL (2.0-8.3); Platelet Count 318 X10*3/uL (160-400); Red Blood Count 3.86 X10*6/uL (4.20-5.50); Red Cell Distribution Width 13.4 % (11.0-16.0); White Blood Count 10.9 X10*3/uL (4.8-10.8)
[2022-10-28 13:29] LABS: Alanine Aminotransferase < 5 U/L (0-31); Albumin Level 3.5 g/dL (3.5-5.0); Alkaline Phosphatase 70 U/L (39-117); Anion Gap 12 (12-20); Aspartate Amino Transferase 10 U/L (5-31); Bilirubin Direct 0.2 mg/dL (0.0-0.5); Bilirubin Total 0.5 mg/dL (0.0-1.0); Blood Urea Nitrogen 14 mg/dL (9-16); Calcium 9.4 mg/dL (8.4-10.2); Carbon Dioxide 26 mmol/L (22-29); Chloride 102 mmol/L (96-108); Creatinine Clr Calc Pharmacy 61.5; Estimated Glomerular Filt Rate > 60; Glucose Random 295 mg/dL (60-115); Magnesium 1.1 mg/dL (1.6-2.6); Potassium 3.9 mmol/L (3.3-5.1); Sodium 136 mmol/L (135-145)
[2022-10-28] MEDS: Magnesium Sulfate/H2O 2 GM/50 ML PIGGYBACK IV (13:54)
[2022-10-28 14:32] LABS: COVID-19 Test Negative (Negative); IDNOW Serial# BCCEAD1C
[2022-10-28 14:36] VITALS: BP 154/57; PULSE 63; RESP 16; O2SAT 94
--- NOTE | 2022-10-28 14:39 | MHC.CM.ED ---
Pt arrived to the ED after experiencing and a fall and having complaints of left arm pain. Patient states she lived alone, used a walker, and had previous VNA services with [facility]. Pt states she will decline going to STR. Pt adamant that she will return home today with her previous services. [facility] updated via [facility]. Pts daughter Mitzi present in room, and is also primary contact/HCP. Mitzi will also transport her mother back home. Additionally, pt states she has a meeting on Tuesday 10/31 with [facility] and is looking for additional assistance. ED Meagan aware, and PT bettyal still pending. D/C plan pending, anticipating return home with resumption of services. PCP: Nayan Santiago vax: x 5
--- NOTE | 2022-10-28 15:29 | MHC.CM.ED ---
Received notification from Meagan DEAN that patient is now agreeable to STR. Met with patient and daughter, Mitzi. List of facilities contracted with patient's insurance provided. Patient does not want referral to [facility]. Facility choices: 1) [facility] 2)[facility]. [facility]. Continue to monitor for d/c needs.
[2022-10-28 15:42] LABS: Magnesium 1.8 mg/dL (1.6-2.6)
[2022-10-28 15:48] VITALS: BP 154/57; PULSE 63; O2SAT 94
--- NOTE | 2022-10-28 16:30 | MHC.CM.ED ---
[facility] does not have a bed and [facility] is not contracted with [facility] CM spoke with patient. Will refer to local facilities that contract with [facility] Pt was recently at [facility] and discharged to home on 10/26 with Jean NAIK. Pt fell today and fx humerus. Uses a walker at baseline. Pt not pleased that her choices cannot offer a bed, but CM stressed that patient was just discharge from a facility with home services and fell. Stressing that she needs some additional STR. Pt agreeable to referrals.
--- NOTE | 2022-10-28 17:08 | PHA.MEDREC ---
Pharmacy Consult ? Medication Reconciliation Medications confirmed per patient. No changes from last ADM on 09/24/22 Pharmacy has completed the medication reconciliation.
[2022-10-28] MEDS: oxyCODONE HCl Immed Release 5 MG TABLET PO (17:41)
[2022-10-28] MEDS: Magnesium Oxide 400 MG TABLET PO (17:41)
[2022-10-28 19:39] VITALS: BP 145/70; PULSE 69; RESP 16; TEMP 36.3; O2SAT 97
--- NOTE | 2022-10-28 19:41 | MHC.EDTECH ---
this pct assumed care of patient at 1900 ,vitals sign taken ,patient had an ice cream for dinner ,patient did not want anything else to eat .
--- NOTE | 2022-10-28 20:44 | PC.NURSE ---
pt requesting cholestyramine, eliquis, and klonopin provider aware
[2022-10-28 21:46] VITALS: BP 171/73; PULSE 60; RESP 16; TEMP 36.4; O2SAT 95
[2022-10-28] MEDS: Acetaminophen 325 MG TABLET 650 MG PO (21:54)
[2022-10-28] MEDS: Melatonin 3 MG TABLET 6 MG PO (21:55)
[2022-10-29] MEDS: Apixaban 2.5 MG TABLET PO ×3 (00:04→21:58)
[2022-10-29] MEDS: clonazePAM 1 MG TABLET PO ×3 (00:04→21:58)
--- NOTE | 2022-10-29 00:07 | PC.NURSE ---
pt medicated per Aug, Notified DEA Costello, Will continue to monitor.
--- NOTE | 2022-10-29 04:46 | PC.NURSE ---
pt in 01/26 pain to L shoulder provider aware med to follow
[2022-10-29] MEDS: oxyCODONE HCl Immed Release 5 MG TABLET PO ×2 (04:53→19:43)
[2022-10-29 06:34] VITALS: BP 154/60; PULSE 52; RESP 18; TEMP 36.6; O2SAT 97
--- NOTE | 2022-10-29 07:13 | PC.NURSE ---
patient a&ox3, pt set up for breakfast, left arm sling, + csm/pulses to left upper extremity, pt states her pain is currently 5/10, rings appropriately, call bermudez within reach, will continue to monitor.
--- NOTE | 2022-10-29 08:20 | MHC.CM.PN ---
PER REVIEW OF [facility], NO SNF BED OFFERS FACILITY RESPONSES DO INDICATE THAT [facility] AUTHORIZATION TO ADMIT CANNOT HAPPEN ON THE WEEKEND
[2022-10-29] MEDS: metFORMIN HCl 1,000 MG TABLET 1000 MG PO ×2 (08:36→18:38)
[2022-10-29] MEDS: Atorvastatin Calcium 20 MG TABLET PO (08:36)
[2022-10-29] MEDS: Folic Acid 1 MG TABLET PO (08:36)
[2022-10-29] MEDS: Cyanocobalamin (Vitamin B-12) 1,000 MCG TABLET 1000 MCG PO (08:37)
[2022-10-29] MEDS: Cholecalciferol (Vitamin D3) 25 MCG TABLET PO (08:37)
--- NOTE | 2022-10-29 08:39 | PC.NURSE ---
patient medicated with am meds- takes meds whole with water
--- NOTE | 2022-10-29 08:53 | MHC.CM.PN ---
CALL TO PATIENT'S DAUGHTER, CHERRY ([phone]) CHERRY IS AWARE THAT [facility] DOES NOT OFFER AUTHORIZATION TO ADMIT OVER THE WEEKEND. (RN MADE AWARE OF THIS BARRIER) CHERRY VERIFIED THAT [facility] AND/OR [facility] ARE NOT DESIRABLE. SHE IS AWARE THAT OTHER SNF REFERRALS ARE REVIEWING CASE MANAGEMENT CONTACT NUMBER LEFT FOR CHERRY TO CALL IF SHE HAS ANY FURTHER QUESTIONS
--- NOTE | 2022-10-29 11:35 | PC.NURSE ---
patient oob with assist to bedside commode/tolerated well
--- NOTE | 2022-10-29 12:00 | PC.NURSE ---
pt currently sleeping
--- NOTE | 2022-10-29 13:30 | PC.NURSE ---
pt son called to speak with patient, pt woke to verbal stimulus to answer call, pt was also set up with meal tray to eat after speaking with son, call bermudez within reach, will continue to monitor.
--- NOTE | 2022-10-29 15:32 | PC.NURSE ---
ASSUMED CARE OF THIS PT. PT CURRENTLY SLEEPING, WILL DEFER VS AT THIS TIME.
[2022-10-29 15:39] VITALS: BP 165/50; PULSE 57; RESP 16; TEMP 36.6; O2SAT 96
[2022-10-29 19:47] VITALS: BP 191/64; PULSE 60; RESP 16; TEMP 36.7; O2SAT 95
--- NOTE | 2022-10-29 19:55 | PC.NURSE ---
This sign writer hand assumed care of this Pt at 1900. Pt reports 9/10 constant left arm pain. Sling is applied, Pt able to move all digits to right arm, cap refill WNL, Pt medicated per AUG. Pt able to stand and pivot to bedside commode. Pt noted to be hypertensive , Pt states I think I am on BP medication, not sure the name and I am not taking it , med rec was done by pharmacy.
[2022-10-29 20:43] VITALS: BP 189/64; PULSE 58; RESP 16
[2022-10-29] MEDS: chlorproMAZINE HCl 25 MG TABLET 50 MG PO (21:57)
[2022-10-29] MEDS: Cholestyramine (With Sugar) 4 GM POWD.PACK PO (21:58)
[2022-10-29 23:14] VITALS: BP 197/65; PULSE 65; RESP 16; O2SAT 94
[2022-10-30] VITALS (7 sets, daily range): BP systolic 108–160; BP diastolic 45–68; PULSE 55–77; RESP 12–19; TEMP 35.8–36.7; O2SAT 93–97
--- NOTE | 2022-10-30 02:03 | PC.NURSE ---
Pt A&O to self, confused, attempting to walk out with belongings. States I am [place], I need to get out of here. I don't want to be killed by your gang . Pt reorientated to place and time. Assisted back to bed.
[2022-10-30] MEDS: oxyCODONE HCl Immed Release 5 MG TABLET PO ×2 (05:57→21:32)
[2022-10-30 07:24] LABS: Glucose, Whole Blood 311 mg/dL (60-115)
[2022-10-30] MEDS: Cyanocobalamin (Vitamin B-12) 1,000 MCG TABLET 1000 MCG PO (07:31)
[2022-10-30] MEDS: Apixaban 2.5 MG TABLET PO ×2 (07:31→21:32)
[2022-10-30] MEDS: Acetaminophen 325 MG TABLET 650 MG PO (07:31)
[2022-10-30] MEDS: metFORMIN HCl 1,000 MG TABLET 1000 MG PO ×2 (07:33→16:51)
[2022-10-30] MEDS: Cholecalciferol (Vitamin D3) 25 MCG TABLET PO (07:33)
[2022-10-30] MEDS: Atorvastatin Calcium 20 MG TABLET PO (07:33)
[2022-10-30] MEDS: Metoprolol Succinate ER 12.5 MG HALFTAB.ER.24H PO (07:33)
[2022-10-30] MEDS: clonazePAM 1 MG TABLET PO ×2 (07:33→21:32)
[2022-10-30] MEDS: Folic Acid 1 MG TABLET PO (07:33)
--- NOTE | 2022-10-30 08:00 | PC.NURSE ---
PT IS A/O X 4 NO SOB/BECKY NOTED SPEAKS IN FULL SENTENCES. SLING TO L ARM WITH +CMS. NO EDEMA NOTED. PT AWARE OF PLAN OF CARE.
--- NOTE | 2022-10-30 08:07 | MHC.EDTECH ---
Patient wash and clean, reposition patient relaxing now in bed.
[2022-10-30 08:19] LABS: Appearance Urine Clear; Color Urine Yellow; Glucose Urine UA >=1000 mg/dL (Negative); Leukocyte Esterase Urine Negative (Negative); Nitrite Urine Negative (Negative); PH 5.5 (5.0-9.0); Specific Gravity - Urine 1.025 (1.005-1.025); UMIC TRIGGER UACC YES; Urine Blood Negative (Negative); Urine Ketones Negative (Negative); Urine Protein 100 (2+) mg/dL (Neg-Trace)
[2022-10-30 08:24] LABS: Bacteria Urine None Seen (None Seen); Hyaline Casts Urine 0-2 /LPF (0-2); RBC Urine 0-2 /HPF (0-2); WBC Urine 0-5 /HPF (0-5)
[2022-10-30] MEDS: Docusate Sodium 100 MG CAPSULE PO (08:57)
--- NOTE | 2022-10-30 11:08 | PC.NURSE ---
pt asked this rn to call her daughter (lyudmila, ) for her. daughter was updated on pt status. pt spoke with her daughter as well.
--- NOTE | 2022-10-30 11:12 | PC.NURSE ---
pt sister (home, ).
--- NOTE | 2022-10-30 13:18 | PC.NURSE ---
pt's daughter is at bedside with outside food.
--- NOTE | 2022-10-30 16:22 | MHC.EDTECH ---
THIS PCT ASSUMED CARE OF PATIENT AT 1500 ,ROUNDING DONE ,VITALS SIGN TAKEN ,THIS PCT GAVE PATIENT A BED BATH ,PATIENT IS COMFORTABLE AND IS WATCHING TELEVISION .
--- NOTE | 2022-10-30 17:20 | MHC.EDTECH ---
patient was assisted to bedside commode ,void large amount of urine ,then back to bed .
--- NOTE | 2022-10-30 20:00 | MHC.EDTECH ---
PATIENT ATE 100 % OF DINNER ,DRANK 360 ML MILK ,PATIENT UP TO BEDSIDE COMMODE ,VOID LARGE AMOUNT OF URINE ,BACK TO BED .
[2022-10-30] MEDS: chlorproMAZINE HCl 25 MG TABLET 50 MG PO (21:32)
[2022-10-30] MEDS: Cholestyramine (With Sugar) 4 GM POWD.PACK PO (21:33)
--- NOTE | 2022-10-30 21:49 | MHC.EDTECH ---
PATIENT DRANK SOME MILK FOR SNACK ,VITALS SIGN TAKEN ,PATIENT RESTING QUIETLY IN BED .
--- NOTE | 2022-10-30 23:25 | MHC.EDTECH ---
i took over this assignment at 2300, room 19 rang i went in the room ask if i can help her she stated she wanted me to get the [facility] to take her home i stated they cant they are here for someone else, she then stated no there not im not staying here for your kind to kill me, so i said ok and left the room and informed the nurse
--- NOTE | 2022-10-31 05:30 | PC.NURSE ---
Pt changed and placed on purewick at this time
[2022-10-31 06:02] VITALS: PULSE 65; RESP 18; TEMP 36.6; O2SAT 94
[2022-10-31 07:05] VITALS: BP 190/85; PULSE 115; RESP 18; TEMP 36.7; O2SAT 94
[2022-10-31] MEDS: Apixaban 2.5 MG TABLET PO ×2 (08:17→20:58)
[2022-10-31] MEDS: Atorvastatin Calcium 20 MG TABLET PO (08:17)
[2022-10-31] MEDS: metFORMIN HCl 1,000 MG TABLET 1000 MG PO ×2 (08:17→18:00)
[2022-10-31] MEDS: Folic Acid 1 MG TABLET PO (08:17)
[2022-10-31] MEDS: clonazePAM 1 MG TABLET PO ×2 (08:17→20:58)
[2022-10-31] MEDS: Cholecalciferol (Vitamin D3) 25 MCG TABLET PO (08:17)
[2022-10-31] MEDS: Metoprolol Succinate ER 12.5 MG HALFTAB.ER.24H PO (08:17)
[2022-10-31] MEDS: Cyanocobalamin (Vitamin B-12) 1,000 MCG TABLET 1000 MCG PO (08:18)
[2022-10-31] MEDS: Docusate Sodium 100 MG CAPSULE PO ×2 (08:19→20:58)
--- NOTE | 2022-10-31 08:21 | PC.NURSE ---
Alert with confusion, attempting to get out of bed indepedently. Bed alarm on and frequent checks for safety. Able to be re-directed for short periods of time. Removed left arm sling stating she does not need it right now. Complainso of no pain to left shoulder or arm
--- NOTE | 2022-10-31 09:02 | MHC.CM.ED ---
Addendum entered by Rosa Maria Turner 10/31/22 11:23: [place], [facility], [employer] [facility], [facility], and [facility] on [address]. Met with patient about facility choice. [facility] is 1st choice. Brunilda made aware via telephone at [phone]. Original Note: Patient remains in ER. Clinical updates sent to facilities still following patient: [facility], [facility], [facility], [facility], [facility], [facility], [facility] and [facility]. Continue to monitor for d/c needs.
--- NOTE | 2022-10-31 10:19 | PC.NURSE ---
Abrasion to left elbow clean with DCD placed. Extensive bruising noted to left side and back of left arm
[2022-10-31] MEDS: Acetaminophen 325 MG TABLET 650 MG PO (10:26)
[2022-10-31 11:03] LABS: COVID-19 Test Negative (Negative); IDNOW Serial# 08D9AD1C
[2022-10-31 13:50] VITALS: BP 171/48; PULSE 57; RESP 16; TEMP 36.9; O2SAT 98
--- NOTE | 2022-10-31 19:09 | PC.NURSE ---
report received from DEA Rousseau Pt sleeping on hospital bed at this time, respirations equal and unlabored, skin pwd, sling on left arm intact. Continue plan of care for rehab search
[2022-10-31] MEDS: chlorproMAZINE HCl 25 MG TABLET 50 MG PO (20:58)
[2022-10-31 21:03] VITALS: BP 186/69; PULSE 60; RESP 14; TEMP 36.8; O2SAT 99
[2022-10-31] MEDS: Cholestyramine (With Sugar) 4 GM POWD.PACK PO (22:06)
--- NOTE | 2022-10-31 23:24 | MHC.EDTECH ---
THIS PCT ASSUMED CARE OF PATIENT AT 2300 ,PURE WICK IN PLACE ,PATIENT IS DRY AND IS SLEEPING .
--- NOTE | 2022-11-01 01:06 | PC.NURSE ---
pt sleeping at this time, respirations even and unlabored, skin pwd
[2022-11-01 04:53] VITALS: BP 170/61; PULSE 72; RESP 16; TEMP 36.8; O2SAT 97
--- NOTE | 2022-11-01 04:54 | MHC.EDTECH ---
ROUNDING WAS MADE ,PATIENT WAS INCONTINENT OF URINE ,CARE GIVEN PURE WICK PLACED ,PATIENT WAS REPOSITION AND BOOSTED UP IN BED ,VITALS SIGN TAKEN ,RN PAOLA IS AWARE OF PATIENT HIGH BP .
[2022-11-01 08:10] VITALS: BP 164/56; PULSE 70; RESP 16; O2SAT 92
[2022-11-01] MEDS: Folic Acid 1 MG TABLET PO (08:12)
[2022-11-01] MEDS: Cyanocobalamin (Vitamin B-12) 1,000 MCG TABLET 1000 MCG PO (08:12)
[2022-11-01] MEDS: Atorvastatin Calcium 20 MG TABLET PO (08:12)
[2022-11-01] MEDS: metFORMIN HCl 1,000 MG TABLET 1000 MG PO (08:12)
[2022-11-01] MEDS: clonazePAM 1 MG TABLET PO (08:13)
[2022-11-01] MEDS: Metoprolol Succinate ER 12.5 MG HALFTAB.ER.24H PO (08:13)
[2022-11-01] MEDS: Apixaban 2.5 MG TABLET PO (08:13)
[2022-11-01] MEDS: Cholecalciferol (Vitamin D3) 25 MCG TABLET PO (08:13)
[2022-11-01] MEDS: Docusate Sodium 100 MG CAPSULE PO (08:13)
[2022-11-01] MEDS: oxyCODONE HCl Immed Release 5 MG TABLET PO (08:18)
--- NOTE | 2022-11-01 08:21 | PC.NURSE ---
pt alert and oriented, skin pwd, respirations even and unlabored, pt ate her breakfast, pt is reporting pain in her left shoulder at 7/10, sling is on the left shoulder and perwick in place and draining well about 400cc in the canister
--- NOTE | 2022-11-01 08:57 | MHC.CM.ED ---
Patient remains in ER. Emy Burkett has obtained insurance auth. Patient can leave at 11am. [facility] booked for 11am. [facility]. Attempted to notify patient. Patient currently sleeping. Spoke with patient's daughter/HCP, Mitzi via telephone at [phone]. Mitzi agreeable to discharge plan. Jillian MALIN and Yasemin DEAN aware. Continue to monitor for d/c needs.
--- NOTE | 2022-11-01 09:23 | PC.NURSE ---
attempted to call report to alvino- no answer, will attempt again shortly
--- NOTE | 2022-11-01 10:03 | PC.NURSE ---
attempted to call report again, this time phone was answered and transferred to a voicemail of samson jj where a message was left to have somebody call back for report.
--- NOTE | 2022-11-01 10:04 | PC.NURSE ---
patient a&ox3, lt arm sling intact- pt has +csm/pulses to LUE, pt states her pain has reduced to 4/10 since taking oxycodone earlier this am, pure wick is intact/draining, pt ate breakfast and offers no additional complaints, pt aware she is going to [facility] at 11 am and is happy about this, call bermudez within reach, will continue to monitor.
--- NOTE | 2022-11-01 10:20 | PC.NURSE ---
alvino returned call- report given to kaley
== END 2022-11-01 12:27 | disposition skilled nursing facility (03) ==
PROVIDERS: Nurse Practitioner Family; Physician Assistant; Emergency Provider Emergency Medicine; PCP Internal Medicine
DX: S42.202A Unspecified fracture of upper end of left humerus, initial encounter for closed fracture (principal); W18.30XA Fall on same level, unspecified, initial encounter; E83.42 Hypomagnesemia; Z20.822 Contact with and (suspected) exposure to COVID-19; E11.9 Type 2 diabetes mellitus without complications; I10 Essential (primary) hypertension; E78.5 Hyperlipidemia, unspecified; Y93.9 Activity, unspecified; Y92.039 Unspecified place in apartment as the place of occurrence of the external cause; Y99.9 Unspecified external cause status; Z79.01 Long term (current) use of anticoagulants; Z79.84 Long term (current) use of oral hypoglycemic drugs; Z79.899 Other long term (current) drug therapy; Z79.02 Long term (current) use of antithrombotics/antiplatelets
CPT/HCPCS: 36415; 73000; 73030; 80048; 80076; 81001; 82550; 82947; 83735; 85025; 87635; 93005; 96365; 96366; 97162; 97530; 99285; J3475

== ENCOUNTER 2022-11-25 06:17 | Outpatient (REF) | payer MEDICARE, SELFPAY | END 2022-11-25 06:18 | disposition home or self-care (01) | LOC: HO.HOSX 06:17 | PROVIDERS: Visit Provider Physician Assistant | DX: Z13.89 Encounter for screening for other disorder (principal) ==

== ENCOUNTER 2022-12-01 07:37 | Outpatient (REF) | payer MEDICARE, SELFPAY ==
--- NOTE | ~2022-12-01 | XR_ITS ---
EXAMINATION: XR SHOULDER, LEFT CLINICAL INFORMATION: Pain COMPARISON: Previous x-ray 10/28/2022 TECHNIQUE: 2 views of the left shoulder. FINDINGS: Comminuted impacted fracture of the left proximal humerus. Alignment does not appear appreciably changed. Fracture lines may be slightly indistinct suggestive of evidence of healing. Soft tissues are unremarkable. XR/XR shoulder LT min 2V IMPRESSION: Healing left proximal humeral fracture.
== END 2022-12-01 07:38 | disposition home or self-care (01) ==
LOC: HO.HOSX 07:37
PROVIDERS: Visit Provider Physician Assistant
DX: S42.202A Unspecified fracture of upper end of left humerus, initial encounter for closed fracture (principal)
CPT/HCPCS: 73030; 99212

== ENCOUNTER 2022-12-10 09:32 | Outpatient (REF) | payer MEDICARE, SELFPAY ==
--- NOTE | ~2022-12-10 | XR_ITS ---
EXAMINATION: XR HIP, LEFT CLINICAL INFORMATION: Left hip pain. COMPARISON: 05/06/2019. TECHNIQUE: Two views of the left hip. FINDINGS: Coarse large 7.2 x 6.4 cm pelvic calcification redemonstrated, characteristic of fibroid. Bones are diffusely demineralized. Vascular calcifications. Redemonstration of left total hip prosthesis. Hardware appears intact. XR/XR hip LT min 2V IMPRESSION: Left hip prosthesis in satisfactory alignment. Hardware appears intact. Curvilinear ossification/calcification redemonstrated medial to the lesser trochanter, of indeterminate etiology, possibly related to prior avulsion. Additional imaging with CT scan or MRI should be considered for better visualization as these modalities are much more sensitive for detection of fracture or other underlying pathology.
[2022-12-10 09:52] LABS: MANUAL DIFF FLAG NO
[2022-12-10 10:19] LABS: Basophils Absolute Auto 0.1 X10*3/uL (0.0-0.2); Basophils Percent Auto 0.6 % (0-2); Eosinophils Absolute Auto 0.3 X10*3/uL (0.0-0.4); Eosinophils Percent Auto 2.9 % (0-4); Hemoglobin 11.2 g/dl (12.0-16.0); Imm Gran Abs Auto 0.04 X10*3/uL (0.00-0.03); Imm Gran Pct Auto 0.4 % (0.0-0.4); Lymphocytes Absolute Auto 1.5 X10*3/uL (1.2-4.9); Lymphocytes Percent Auto 16.6 % (20-40); Mean Corpuscular HGB Conc 32.9 g/dl (31.0-35.0); Mean Corpuscular Hemoglobin 27.5 pg (27.0-33.0); Mean Corpuscular Volume 83.3 fL (80.0-98.0); Mean Platelet Volume 9.7 fL (9.4-12.3); Monocytes Absolute Auto 0.6 X10*3/uL (0.1-1.2); Monocytes Percent Auto 6.3 % (2-11); Neutrophils Absolute Auto 6.6 x10*3/uL (2.0-8.3); Neutrophils Percent Auto 73.2 % (45-73); Platelet Count 399 X10*3/uL (160-400); Red Blood Count 4.08 X10*6/uL (4.20-5.50); Red Cell Distribution Width 14.4 % (11.0-16.0); Retic HGB Equivalent 32.5 pg (30.0-35.0); Reticulocyte Percent 2.8 % (0.5-1.8); Reticulocytes Absolute 0.115 X10*6/uL (0.026-0.095); White Blood Count 8.9 X10*3/uL (4.8-10.8)
[2022-12-10 10:26] LABS: B Type Natriuretic Peptide 102 pg/mL (<100)
[2022-12-10 10:53] LABS: Alanine Aminotransferase 16 U/L (0-31); Albumin Level 3.6 g/dL (3.5-5.0); Alkaline Phosphatase 102 U/L (39-117); Anion Gap 16 (12-20); Aspartate Amino Transferase 16 U/L (5-31); Bilirubin Total 0.5 mg/dL (0.0-1.0); Blood Urea Nitrogen 19 mg/dL (9-16); Calcium 9.7 mg/dL (8.4-10.2); Carbon Dioxide 23 mmol/L (22-29); Chloride 101 mmol/L (96-108); Cholesterol 85 mg/dL; Estimated Glomerular Filt Rate > 60; Glucose Random 284 mg/dL (60-115); HDL Cholesterol 41 mg/dL; Iron 41 mcg/dL (30-160); LDL Cholesterol Calculated 18 mg/dl; Percent Iron Saturation 15 % (15-50); Potassium 4.5 mmol/L (3.3-5.1); Sodium 135 mmol/L (135-145); Total Iron Binding Capacity 270 mcg/dL (228-428); Total Protein 6.6 g/dL (6.5-8.0); Triglycerides 131 mg/dL; Unsaturated Iron Binding 229 ug/dL
[2022-12-10 11:04] LABS: Ferritin 289 ng/mL (10-250); Thyroid Stimulating Hormone 2.23 uIU/mL (0.32-4.0)
[2022-12-10 11:19] LABS: Folate > 20.0 ng/mL (> or = 4.0); Vitamin B12 1316 pg/mL (200-900)
== END 2022-12-10 09:33 | disposition home or self-care (01) ==
LOC: HO.LAB 09:32
PROVIDERS: PCP Internal Medicine; Visit Provider Internal Medicine
DX: E11.65 Type 2 diabetes mellitus with hyperglycemia (principal); E78.00 Pure hypercholesterolemia, unspecified; Z96.649 Presence of unspecified artificial hip joint
CPT/HCPCS: 36415; 73502; 80053; 80061; 82607; 82728; 82746; 83540; 83880; 84443; 85025; 85045

== ENCOUNTER 2023-02-24 11:14 | Outpatient (AMB) | payer MEDICARE, SELFPAY ==
[2023-02-24 11:17] VITALS: BMI 25.5
--- NOTE | 2023-02-24 11:17 | MHC.OFFVIS ---
Intake Vital Signs 02/24/23 11:17 Height 5 ft 5 in Weight 153 lb BMI 25.5 Intake Visit Reasons: ov- Right knee possible TKA Intake Note: Jennifer is a 77 year old female who presents today for a follow up of her right knee. Allergies No Known Allergies [No Known Allergies*] Allergy (Verified 12/07/22 10:16) HPI ov- Right knee possible TKA HPI Details Jennifer is a 77 year old Diabetic woman who presents to discuss her right knee OA. She has bilateral knee OA, and received bilateral injections on 03/24/22, with good relief. She complains of pain with daily activity, and feels limited in her activity. She is unable to walk beyond 5 minutes due to her pain recently, which she finds frustrating. She says she used to be active with exercise at the gym, but has not been able to recently. She is seen today with her daughter, who says she has fallen several times in the past. She was initially scheduled for a right TKA on 02/15/22, but this was cancelled due to a diagnosis of afib & CAD. She says she had a heart attack in 06/2022 and is currently on Eliquis. [facility], [facility] Medical History Adjustment disorder with depressed mood Hyponatremia Preoperative cardiovascular examination Atherosclerotic cardiovascular disease Atrial flutter Preop exam for internal medicine Impacted cerumen of both ears Annual physical exam History of CVA (cerebrovascular accident) Frequency of micturition Generalized anxiety disorder Obesity (BMI 30.0-34.9) Annual physical exam Primary osteoarthritis of left knee Second degree AV block Overweight (BMI 25.0-29.9) Insomnia Tobacco abuse Hypercholesterolemia Osteoarthrosis Hypertension Type 2 diabetes mellitus with hyperglycemia Surgical History History of tonsillectomy History of cholecystectomy H/O breast reconstruction History of hip replacement Family History Father Cancer Mother Medical history unknown Brother Liver cancer Sister Hypertension COPD (chronic obstructive pulmonary disease) Social History Household Members: None Housing: Apartment Do you presently have visiting nurse or other home services: No Alcohol intake: never Patient Tobacco Use Status: Former Tobacco user Quit Date: 06/2022 Tobacco use type: Cigarette Cigarettes Per Day: 2 e-Cigarette/Vaping Use: Never Used Second Hand Smoke Exposure: No Advance Directives Date on File: 10/07/22 service: No Current occupational status: retired Current occupation: Right Handed Cognitive needs: No Hearing needs: No Vision needs: Yes Review of Systems Const All systems reviewed & are unremarkable except as noted in HPI and below Physical Exam Vital Signs: BMI result Body Mass Index 25.5 Const General: no acute distress, alert and awake Orientation/consciousness: patient oriented x3 HEENT Head: Yes normocephalic and Yes atraumatic Eyes EOM: EOMs intact bilaterally Resp Effort & Inspection: normal respiratory effort and able to speak in complete sentences Cardio Jugular venous distension: no JVD Skin General skin exam: turgor normal Rashes: no rashes Neuro General: patient oriented x3 Extrem Other: Right Knee: Antalgic gait TTP medial compartment 5-125 degrees ROM Psych Appearance: grossly normal Affect: normal affect Attitude: cooperative Assessment & Plan Assessment & Plan (1) Osteoarthritis of right knee: Code(s): M17.11 - Unilateral primary osteoarthritis, right knee Plan: This is a 76 year old woman with severe varus right knee OA and loss of medial joint space of the right knee. She has pain with daily activity and is limited in her ambulation to <5 minutes. She had mild relief from injections in the past but these do not last long. She feels limited in her ADLs and her QOL is diminished. I discussed her diagnosis and treatment options. I recommend a right TKA. Her KS was about 9 months ago and she feels that she would like to have a TKA b/c she cannot engage in daily activities. I discussed the risks, benefits, and alternatives including, but not limited to, the risk of pain, infection, stiffness, need for further surgery as well as potential medical complications such as blood clots, pulmonary embolism and cardiac complications. I discussed the recovery timeline and process as well as the importance of PT. Jennifer is a good candidate for this surgery, and she wishes to proceed with this decision. She will speak with Migdalia to schedule this procedure. She has a hx of aFib, CAD, a KS in 06/2022, Diabetes, a smoker, and is on Eliquis. She will need cardiac clearance prior to surgery. (2) Type 2 diabetes mellitus with hyperglycemia: Code(s): E11.65 - Type 2 diabetes mellitus with hyperglycemia Qualifiers: Diabetes mellitus supervisor intermediates insulin use: without supervisor intermediates use Qualified Code(s): E11.65 - Type 2 diabetes mellitus with hyperglycemia (3) Atherosclerotic cardiovascular disease: Code(s): I25.10 - Atherosclerotic heart disease of circle coronary artery without angina pectoris (4) Atrial flutter: Code(s): I48.92 - Unspecified atrial flutter (5) Myocardial infarction: Code(s): I21.9 - Acute myocardial infarction, unspecified Plan Scribed for Yoni Paul MD by Jerman Middleton, medical officer psychiatry, on 02/24/23 at 11:40 AM, EST. Coding Level of Care Code Est Pt Level 4 (27932) Diagnoses Osteoarthritis of right knee M17.11 Type 2 diabetes mellitus with hyperglycemia, without long-term current use of insulin E11.65 Diabetes mellitus supervisor intermediates insulin use: without supervisor intermediates use Atherosclerotic cardiovascular disease I25.10 Atrial flutter I48.92 Myocardial infarction I21.9
== END 2023-02-24 11:39 | disposition home or self-care (01) ==
PROVIDERS: PCP Internal Medicine; Visit Provider Orthopaedic Surgery
DX: M17.11 Unilateral primary osteoarthritis, right knee (principal)
CPT/HCPCS: 99214

== ENCOUNTER → 2023-02-24 11:14 | Outpatient (BNVA) | payer MEDICARE, SELFPAY | PROVIDERS: PCP Internal Medicine; Visit Provider Orthopaedic Surgery | DX: M17.0 Bilateral primary osteoarthritis of knee (principal); E11.65 Type 2 diabetes mellitus with hyperglycemia; I25.10 Atherosclerotic heart disease of native coronary artery without angina pectoris; I48.92 Unspecified atrial flutter; I25.2 Old myocardial infarction; Z79.01 Long term (current) use of anticoagulants | CPT/HCPCS: 99212 ==

== ENCOUNTER 2023-03-24 13:46 | Outpatient (AMB) | payer MEDICARE, SELFPAY ==
[2023-03-24 13:54] VITALS: BP 136/80; PULSE 62; O2SAT 94; BMI 24.9
--- NOTE | 2023-03-24 13:54 | MHC.PC.OV ---
Vital Signs 03/24/23 13:54 Height 5 ft 5 in Weight 149 lb 7.574 oz BMI 24.9 BP 136/80 Blood Pressure Location Lt brachial Position Sitting Pulse 62 Pulse Source Pulse Oximeter Pulse Oximetry (%) 94 Oxygen Delivery Method Room Air Intake Visit Reasons: 3mth f/u Allergies No Known Allergies [No Known Allergies*] Allergy (Verified 03/24/23 13:54) Tobacco use date assessed: 11/28/22 Fall risk assessment: No Falls in past year Last assessed Fall Risk: 03/24/23 Dental Screening Dental Screen Date: 03/24/23 Did you have a dental visit in the last 12 months?: No Did you have a dental problem in the last 6 months where you did not have access to dental care?: No Was dental information given to patient?: No HPI 3mth f/u HPI Details 78-year-old female with diabetes mellitus CAD atrial flutter end-stage renal disease hypercholesterolemia coming in for follow-up. Last seen in November 2022 colonoscopy done in 2016. Patient has seen orthopedics for the right knee osteoarthritis patient has been recommended to have total knee arthroplasty [facility] Medical History Adjustment disorder with depressed mood Hyponatremia Preoperative cardiovascular examination Atherosclerotic cardiovascular disease Atrial flutter Preop exam for internal medicine Impacted cerumen of both ears Annual physical exam History of CVA (cerebrovascular accident) Frequency of micturition Generalized anxiety disorder Obesity (BMI 30.0-34.9) Annual physical exam Primary osteoarthritis of left knee Second degree AV block Overweight (BMI 25.0-29.9) Insomnia Tobacco abuse Hypercholesterolemia Osteoarthrosis Hypertension Type 2 diabetes mellitus with hyperglycemia Surgical History History of tonsillectomy History of cholecystectomy H/O breast reconstruction History of hip replacement Family History Father Cancer Mother Medical history unknown Brother Liver cancer Sister Hypertension COPD (chronic obstructive pulmonary disease) Social History Household Members: None Housing: Apartment Do you presently have visiting nurse or other home services: No Alcohol intake: never Patient Tobacco Use Status: Former Tobacco user Quit Date: 06/2022 Tobacco use type: Cigarette Cigarettes Per Day: 2 e-Cigarette/Vaping Use: Never Used Second Hand Smoke Exposure: No Advance Directives Date on File: 10/07/22 service: No Current occupational status: retired Current occupation: Right Handed Cognitive needs: No Hearing needs: No Vision needs: Yes Questionnaire PHQ-9 Over the last 2 weeks, how often have you been bothered by any of the following problems? 1. Little interest or pleasure in doing things: not at all 2. Feeling down, depressed, or hopeless: not at all 3. Trouble falling or staying asleep, or sleeping too much: not at all 4. Feeling tired or having little energy: not at all 5. Poor appetite or overeating: not at all 6. Feeling bad about yourself - or that you are a failure or have let yourself or your family down: not at all 7. Trouble concentrating on things, such as reading the newspaper or watching television: not at all 8. Moving or speaking so slowly that other people could have noticed. Or the opposite - being so fidgety or restless that you have been moving around a lot more than usual: not at all 9. Thoughts that you would be better off or of hurting yourself in some way: not at all Total score: 0 Depression Screening Interpretation: Negative Depression Screening Done: Yes Source: Developed by Drs. Alvaro Landis, Ban Moss, Joe Maradiaga and colleagues, with an educational lee ann from [employer]. Thrive Questionnaire Date Thrive assessed: 08/05/22 AUDIT C Alcohol Use Questionnaire (AUDIT-C) 1. How often do you have a drink containing alcohol?: Monthly or less 2. How many drinks containing alcohol do you have on a typical day when you are drinking?: 1 or 2 3. How often do you have six or more drinks on one occasion?: Never Total Score: 1 NAT-7 AMB Questionnaire NAT-7 Date NAT - 7 assessed: 08/05/22 Source: Developed by Drs. Alvaro Landis, Joe Durán and colleagues, with an educational lee ann from [employer]. Physical exam (Primary Care) Vital Signs: Last Vital Signs Pulse 62 03/24/23 13:54 BP 136/80 03/24/23 13:54 Pulse Ox 94 03/24/23 13:54 Oxygen Delivery Method Room Air 03/24/23 13:54 BMI result Body Mass Index 24.9 Tobacco/Smoking Status: Tobacco use Status Tobacco use date assessed 11/28/22 03/24/23 13:55 Patient Tobacco Use Status Former Tobacco user 03/24/23 13:55 Tobacco use type Cigarette 03/24/23 13:55 e-Cigarette/Vaping Use Never Used 03/24/23 13:55 PHQ-9: PHQ-9 Score PHQ-9: Total score 0 03/24/23 14:25 Depression Screening Interpretation: Negative Thrive Assessment: Date of Thrive Assessment Date Thrive assessed 08/05/22 03/24/23 13:55 Const General: alert; No acute distress Eyes Conjunctivae: conjunctivae normal Resp Auscultation: clear to auscultation bilaterally Cardio Rate: regular rate Rhythm: regular rhythm GI Inspection: Yes normal to inspection Extrem General: Yes normal to inspection and No edema Results AMB Hemoglobin A1c AMB Hemoglobin A1c 8.0 % Last Edit by Laurel Walsh CMA on 03/24/23 14:27 Results Reviewed Results Reviewed: Laboratory Last Values Hgb A1c (Clinic) 8.0 % (4.0-6.0) H 03/24/23 14:26 Assessment and Plan Assessment & Plan (1) Osteoarthritis of right knee: Code(s): M17.11 - Unilateral primary osteoarthritis, right knee Plan: Patient has been in touch with orthopedics and planned knee arthroplasty (2) Type 2 diabetes mellitus with hyperglycemia: Code(s): E11.65 - Type 2 diabetes mellitus with hyperglycemia Qualifiers: Diabetes mellitus halfway insulin use: without halfway use Qualified Code(s): E11.65 - Type 2 diabetes mellitus with hyperglycemia Plan: Decrease the amount of carbohydrate intake, pasta, bread, rice and potatoes are all sugar and that is aside from all the sweet stuff, remember that fruits are good but they are Sweet also. Hemoglobin A1c goal of less than 7.0. Patient is on metformin 1000 mg twice a day and Januvia 100 mg once a day A1c is better at 8.0 but Januvia is known to be weak diabetic medication will change it to Jardiance (3) Atrial flutter: Code(s): I48.92 - Unspecified atrial flutter Plan: Continue with anticoagulation (4) Hypercholesterolemia: Code(s): E78.00 - Pure hypercholesterolemia, unspecified Plan: Avoid fried foods, chicken skin, eggs, butter margarine, pastries and meat. Be it pork or beef they have a lot of cholesterol LDL goal of less than 70 patient is on simvastatin 40 mg once a day November last blood work LDL 18 (5) Atherosclerotic cardiovascular disease: Code(s): I25.10 - Atherosclerotic heart disease of [place] coronary artery without angina pectoris Plan: Control the cholesterol, weight, blood pressure, diabetes, patient was advised to follow-up with cardiology Orders: Orders AMB Hemoglobin A1c Today Z13.9 - Encounter for screening, unspecified Medications: New empagliflozin (Jardiance) 10 mg PO DAILY 30 tabs 4RF E11.65 - Type 2 diabetes mellitus with hyperglycemia Discontinued sitagliptin phosphate (Januvia) Discontinued Reason: Ancillary Entered New Order 100 mg PO DAILY 30 tabs 3RF E11.65 - Type 2 diabetes mellitus with hyperglycemia Coding Level of Care Code Est Pt Level 4 (08989) Diagnoses Osteoarthritis of right knee M17.11 Type 2 diabetes mellitus with hyperglycemia, without long-term current use of insulin E11.65 Diabetes mellitus halfway insulin use: without terminal operations supervisor use Atrial flutter I48.92 Hypercholesterolemia E78.00 Atherosclerotic cardiovascular disease I25.10
== END 2023-03-24 14:49 | disposition home or self-care (01) ==
PROVIDERS: PCP Internal Medicine; Visit Provider Internal Medicine
DX: E11.65 Type 2 diabetes mellitus with hyperglycemia (principal); I48.92 Unspecified atrial flutter; E78.00 Pure hypercholesterolemia, unspecified; I25.10 Atherosclerotic heart disease of native coronary artery without angina pectoris; M17.11 Unilateral primary osteoarthritis, right knee
CPT/HCPCS: 83036; 99214

== ENCOUNTER 2023-04-07 14:35 | Outpatient (AMB) | payer MEDICARE, SELFPAY ==
[2023-04-07 14:37] VITALS: BP 120/82; PULSE 64; BMI 24.7
--- NOTE | 2023-04-07 14:37 | MHC.OFFVIS ---
Intake Vital Signs 04/07/23 14:37 Height 5 ft 5 in Weight 148 lb 9.465 oz BMI 24.7 BP 120/82 Blood Pressure Location Lt brachial Position Sitting Pulse 64 Intake Visit Reasons: pre op TKR Intake Note: pre op TKR Accompanied by: Daughter Allergies No Known Allergies [No Known Allergies*] Allergy (Verified 04/07/23 14:39) Medication List - Last Reconciled 04/07/23 by Marlen Dixon NP acetaminophen 650 mg (2 x 325 mg) PO Q6H PRN apixaban (Eliquis) 2.5 mg PO BID 90 days chlorpromazine 50 mg PO BEDTIME cholecalciferol (vitamin D3) 25 mcg PO DAILY cholestyramine-aspartame 4 gram (Cholestyramine Light) 1 ea PO DAILY clonazepam 1/2 tab in am and 1 tab in pm orally; cyanocobalamin (vitamin B-12) (Vitamin B-12) 1,000 mcg PO DAILY 90 days dapagliflozin propanediol (Farxiga) 5 mg PO DAILY folic acid 1 mg PO DAILY lancets (FreeStyle Lancets) As directed check BS QD melatonin 6 mg (2 x 3 mg) PO BEDTIME PRN metformin 1,000 mg PO BIDWMEAL metoprolol succinate ER 25 mg PO DAILY sertraline 100 mg PO DAILY simvastatin 40 mg PO DAILY 90 days HPI HPI Comments History of Present Illness Details 78-year-old female presents for a pre-operative appointment for a TKR with Dr Paul. She is accompanied by her daughter. She reports she has been doing well but has had a couple of falls due to mobility issues and not being very active due to knee pain. She reports she has been a sharp mid chest pain that last seconds for some time now. Denies shortness of breath, dizziness, or palpitations. She has a history of atrial fluter, NSTEMI, diabetes, and hypercholestremia. She had an echo back in September 2022 showed normal LV systolic function with impaired relaxation. Trivial aortic regurgitation. Pharmacological stress test with nuclear imaging showed mixed ischemia/infarct pattern in mid to distal inferolateral wall. LVEF 59 with stress 65% at rest. No transient ischemic dilation. [facility] Medical History (Updated 04/07/23 @ 15:48 by Marlen Dixon NP) History of CVA (cerebrovascular accident) Adjustment disorder with depressed mood Hyponatremia Preoperative cardiovascular examination Atherosclerotic cardiovascular disease Atrial flutter Preop exam for internal medicine Impacted cerumen of both ears Annual physical exam Frequency of micturition Generalized anxiety disorder Obesity (BMI 30.0-34.9) Annual physical exam Primary osteoarthritis of left knee Second degree AV block Overweight (BMI 25.0-29.9) Insomnia Tobacco abuse Hypercholesterolemia Osteoarthrosis Hypertension Type 2 diabetes mellitus with hyperglycemia Surgical History History of tonsillectomy History of cholecystectomy H/O breast reconstruction History of hip replacement Family History Father Cancer Mother Medical history unknown Brother Liver cancer Sister Hypertension COPD (chronic obstructive pulmonary disease) Social History Household Members: None Housing: Apartment Do you presently have visiting nurse or other home services: No Alcohol intake: never Patient Tobacco Use Status: Former Tobacco user Quit Date: 06/2022 Tobacco use type: Cigarette Cigarettes Per Day: 2 e-Cigarette/Vaping Use: Never Used Second Hand Smoke Exposure: No Advance Directives Date on File: 10/07/22 service: No Current occupational status: retired Current occupation: Right Handed Cognitive needs: No Hearing needs: No Vision needs: Yes Review of Systems Const Denies chills, Denies fatigue, Denies fever(s), Denies frequent falls, Denies weakness, Denies weight gain and Denies weight loss ENT Denies dizziness Card Denies chest pain, Denies chest pain at rest, Denies chest pain with activity, Denies rapid heart rate, Denies pedal edema, Denies edema, Denies leg edema, Denies lightheadedness, Denies palpitations, Denies dyspnea, Denies dyspnea on exertion and Denies orthopnea Resp Denies cough, Denies dyspnea and Denies dyspnea on exertion GI Denies hematochezia and Denies change in stool character Musc Denies abnormal gait, Reports limited range of motion, Reports muscle cramps, Denies muscle weakness, Denies numbness, Denies radiating pain into limb, Denies stiffness and Denies tingling Neuro Denies abnormal gait, Denies dizziness, Denies frequent falls, Denies numbness, Denies tingling and Denies weakness Endo Denies fatigue and Denies palpitations Physical Exam Vital Signs: BMI result Body Mass Index 24.7 Const General: healthy appearing and no acute distress Orientation/consciousness: patient oriented x3 HEENT Head: Yes normal to inspection Eyes General: appearance normal, both eyes and all related structures Neck Neck: Yes normal visual inspection Chest Chest palpation & inspection: normal inspection of the chest Resp Effort & Inspection: normal respiratory effort Auscultation: clear to auscultation bilaterally Cardio Jugular venous distension: no JVD Palpation: normal PMI Rate: regular rate Rhythm: regular rhythm Heart sounds: S1 normal heart sound present, S2 normal heart sound present, no click, no gallops, no murmurs and no rubs GI Inspection: Yes normal to inspection Palpation (GI): Soft to palpation Skin General skin exam: no rashes or lesions noted Neuro General: patient oriented x3 Extrem General: Yes normal to inspection Psych Appearance: grossly normal Office Procedures EKG Details: A-flutter with variable AV block with premature ventricular or aberrantly conducted complexes rightward axis. Spetal infarct age undetermined, QTc 470ms. [id number], Complete Assessment & Plan Assessment & Plan (1) Atrial flutter: Code(s): I48.92 - Unspecified atrial flutter (2) Atherosclerotic cardiovascular disease: Code(s): I25.10 - Atherosclerotic heart disease of [place] coronary artery without angina pectoris (3) History of CVA (cerebrovascular accident): Comment: 2020 Code(s): Z86.73 - Personal history of transient ischemic attack (TIA), and cerebral infarction without residual deficits (4) History of non-ST elevation myocardial infarction (NSTEMI): Code(s): I25.2 - Old myocardial infarction Plan Patient is on eliquis 2.5mg BID. Discussed the importance of this medication in the setting of atrial flutter. That holding this medication does increase risk of stroke. Will discuss with Dr Irizarry in regards to testing and pre-operative risk due to not being seen since her NSTEMI. Return in 6 months to meet with Dr Irizarry. Sooner if needed. Coding Level of Care Code Est Pt Level 4 (33426) Diagnoses Atrial flutter I48.92 Atherosclerotic cardiovascular disease I25.10 History of CVA (cerebrovascular accident) Z86.73 History of non-ST elevation myocardial infarction (NSTEMI) I25.2 CPT Codes EKG - CPT: 69080-[id number], Complete ([id number])
== END 2023-04-07 15:17 | disposition home or self-care (01) ==
PROVIDERS: PCP Internal Medicine; Visit Provider Nurse Practitioner
DX: I48.92 Unspecified atrial flutter (principal); I25.10 Atherosclerotic heart disease of native coronary artery without angina pectoris; Z86.73 Personal history of transient ischemic attack (TIA), and cerebral infarction without residual deficits; I25.2 Old myocardial infarction
CPT/HCPCS: 93010; 99214

== ENCOUNTER → 2023-04-07 14:35 | Outpatient (BNVA) | payer MEDICARE, SELFPAY | PROVIDERS: PCP Internal Medicine; Visit Provider Nurse Practitioner | DX: Z01.810 Encounter for preprocedural cardiovascular examination (principal); I48.92 Unspecified atrial flutter; I44.39 Other atrioventricular block; I25.10 Atherosclerotic heart disease of native coronary artery without angina pectoris; I25.2 Old myocardial infarction; I10 Essential (primary) hypertension; Z86.73 Personal history of transient ischemic attack (TIA), and cerebral infarction without residual deficits | CPT/HCPCS: 93005; 99212 ==

== ENCOUNTER 2023-06-30 13:43 | Outpatient (AMB) | payer MEDICARE, SELFPAY ==
[2023-06-30 13:49] VITALS: BP 148/70; PULSE 65; O2SAT 100; BMI 25.3
--- NOTE | 2023-06-30 13:49 | A.OFFPC_ITS ---
Vital Signs 06/30/23 13:49 Height 5 ft 5 in Weight 152 lb BMI 25.3 BP 148/70 H Blood Pressure Location Lt brachial Position Sitting Pulse 65 Pulse Source Pulse Oximeter Pulse Oximetry (%) 100 Oxygen Delivery Method Room Air Intake Visit Reasons: DM cad, Netting Weaver Required: No Polymer Scientist: Present Accompanied by: Daughter Allergies dapagliflozin [From [facility]] Adverse Reaction (Intermediate, Unverified 06/30/23 15:12) Diarrhea Medication List - Last Reconciled 06/30/23 by Nayan Pavon MD acetaminophen 650 mg (2 x 325 mg) PO Q6H PRN amoxicillin-pot clavulanate 875-125 mg 1 tab PO BID apixaban (Eliquis) 2.5 mg PO BID 90 days chlorpromazine 50 mg PO BEDTIME cholecalciferol (vitamin D3) 25 mcg PO DAILY cholestyramine-aspartame 4 gram (Cholestyramine Light) 1 ea PO DAILY clonazepam 1/2 tab in am and 1 tab in pm orally; cyanocobalamin (vitamin B-12) (Vitamin B-12) 1,000 mcg PO DAILY 90 days folic acid 1 mg PO DAILY lancets (FreeStyle Lancets) As directed check BS QD melatonin 6 mg (2 x 3 mg) PO BEDTIME PRN metformin 1,000 mg PO BIDWMEAL metoprolol succinate ER 25 mg PO DAILY sertraline 100 mg PO DAILY simvastatin 40 mg PO DAILY 90 days sitagliptin phosphate (Januvia) 100 mg PO DAILY Tobacco use date assessed: 06/30/23 Fall risk assessment: No Falls in past year Last assessed Fall Risk: 06/30/23 Dental Screening Dental Screen Date: 06/30/23 Did you have a dental visit in the last 12 months?: Yes Did you have a dental problem in the last 6 months where you did not have access to dental care?: No Was dental information given to patient?: Patient has dentist HPI DM cad, HPI Details 78-year-old female with diabetes mellitu s hypercholesterolemia coronary artery disease atrial flutter and right knee osteoarthritis last seen in March 2023. Patient is here for follow-up. Last colonoscopy December 2016 mammogram done September 2021.Review of the notes patient has seen Cardiology March 2023 preoperative evaluation for total knee replacement under Dr. Paul mobility issues fall pharmacological stress test with nuclear imaging showed mixed ischemia infarct pattern in mid to distal inferolateral wall EF 59% patient presently on Eliquis note on possible cardiac catheterization.. Patient has round mass on the right forehead yellowish states has been scratching it and it turned out to be an infection. Otherwise as for the knee replacement patient wants to hold off from it and still thinking on whether she wants to have the catheterization done did discussed with the patient that patient has high risk of cardiac complications due to her history having coronary artery disease, on anticoagulation for the atrial flutter with a history of CVA, patient also has an uncontrolled diabetes mellitus. Later tells me did not take the Farxiga as she has been having diarrhea from it. Presently on metformin only declined shots and so will start on another pill. [facility] Medical History History of CVA (cerebrovascular accident) Adjustment disorder with depressed mood Hyponatremia Preoperative cardiovascular examination Atherosclerotic cardiovascular disease Atrial flutter Preop exam for internal medicine Impacted cerumen of both ears Annual physical exam Frequency of micturition Generalized anxiety disorder Obesity (BMI 30.0-34.9) Annual physical exam Primary osteoarthritis of left knee Second degree AV block Overweight (BMI 25.0-29.9) Insomnia Tobacco abuse Hypercholesterolemia Osteoarthrosis Hypertension Type 2 diabetes mellitus with hyperglycemia Surgical History History of tonsillectomy History of cholecystectomy H/O breast reconstruction History of hip replacement Family History Father Cancer Mother Medical history unknown Brother Liver cancer Sister Hypertension COPD (chronic obstructive pulmonary disease) Social History Household Members: None Housing: Apartment Do you presently have visiting nurse or other home services: No Alcohol intake: never Patient Tobacco Use Status: Former Tobacco user Quit Date: 06/2022 Tobacco use type: Cigarette Cigarettes Per Day: 2 e-Cigarette/Vaping Use: Never Used Second Hand Smoke Exposure: No Advance Directives Date on File: 10/07/22 service: No Current occupational status: retired Current occupation: Right Handed Cognitive needs: No Hearing needs: No Vision needs: Yes Questionnaire PHQ-9 Over the last 2 weeks, how often have you been bothered by any of the following problems? 1. Little interest or pleasure in doing things: not at all 2. Feeling down, depressed, or hopeless: not at all 3. Trouble falling or staying asleep, or sleeping too much: not at all 4. Feeling tired or having little energy: not at all 5. Poor appetite or overeating: not at all 6. Feeling bad about yourself - or that you are a failure or have let yourself or your family down: not at all 7. Trouble concentrating on things, such as reading the newspaper or watching television: not at all 8. Moving or speaking so slowly that other people could have noticed. Or the opposite - being so fidgety or restless that you have been moving around a lot more than usual: not at all 9. Thoughts that you would be better off or of hurting yourself in some way: not at all Total score: 0 Depression Screening Interpretation: Negative Depression Screening Done: Yes Source: Developed by Drs. Alvaro Landis, Ban Moss, Joe Maradiaga and colleagues, with an educational lee ann from [employer]. Thrive Questionnaire Date Thrive assessed: 06/30/23 I am a: Patient What is your living situation today?: I have a steady place to live Within the past 12 months, did the food you bought not last and you didn't have the money to get more?: Never true Within the past 12 months, did you worry whether your food would run out before you got money to buy more?: Never true Do you have trouble paying for medicines?: No Do you have trouble getting transportation to medical appointments?: No Do you have trouble paying your heating and electricity bill?: No Do you have trouble taking care of your child, family member or friend?: No Do you have trouble with day-to-day activities such as bathing, preparing meals, shopping, managing finances, etc.?: No Are you currently unemployed and looking for a job?: No Are you interested in more education?: No Please select the resources that you would like help with: None AUDIT C Alcohol Use Questionnaire (AUDIT-C) 1. How often do you have a drink containing alcohol?: Monthly or less 2. How many drinks containing alcohol do you have on a typical day when you are drinking?: 1 or 2 3. How often do you have six or more drinks on one occasion?: Never Total Score: 1 NAT-7 AMB Questionnaire NAT-7 Date NAT - 7 assessed: 06/30/23 Feeling nervous, anxious, or on edge: 0 = Not at all Not being able to stop or control worryin = Not at all Worrying too much about different things: 0 = Not at all Trouble relaxin = Not at all Being so restless that it is hard to sit still: 0 = Not at all Becoming easily annoyed or irritable: 0 = Not at all Feeling afraid as if something awful might happen: 0 = Not at all Total NAT-7 score (0-4 normal; 5-9 mild; 10-14 moderate; 15-21 severe): 0 Source: Developed by Drs. Alvaro Landis, Ban Moss, Joe Maradiaga and colleagues, with an educational lee ann from [employer]. Physical exam (Primary Care) Vital Signs: Last Vital Signs Pulse 65 06/30/23 13:49 BP 148/70 H 06/30/23 13:49 Pulse Ox 100 06/30/23 13:49 Oxygen Delivery Method Room Air 06/30/23 13:49 BMI result Body Mass Index 25.3 Tobacco/Smoking Status: Tobacco use Status Tobacco use date assessed 06/30/23 06/30/23 13:51 Patient Tobacco Use Status Former Tobacco user 06/30/23 13:51 Tobacco use type Cigarette 06/30/23 13:51 e-Cigarette/Vaping Use Never Used 06/30/23 13:51 PHQ-9: PHQ-9 Score PHQ-9: Total score 0 06/30/23 14:37 Depression Screening Interpretation: Negative Thrive Assessment: Date of Thrive Assessment Date Thrive assessed 06/30/23 06/30/23 13:51 Const General: alert; No acute distress HENMT Other: Right forehead has a 2 cm rounded yellowish mass. Eyes Conjunctivae: conjunctivae normal Resp Auscultation: clear to auscultation bilaterally Cardio Rate: regular rate Rhythm: regular rhythm GI Inspection: Yes normal to inspection Extrem General: Yes normal to inspection and No edema Results AMB Hemoglobin A1c AMB Hemoglobin A1c 9.6 % Last Edit by SIDNEY Jay on 06/30/23 14:38 Results Reviewed Results Reviewed: Laboratory Last Values Hgb A1c (Clinic) 9.6 % (4.0-6.0) H 06/30/23 13:53 Assessment and Plan Assessment & Plan (1) Type 2 diabetes mellitus with hyperglycemia: Code(s): E11.65 - Type 2 diabetes mellitus with hyperglycemia Qualifiers: Diabetes mellitus long chain dyeing machine operator insulin use: without long chain dyeing machine operator use Qualified Code(s): E11.65 - Type 2 diabetes mellitus with hyperglycemia Plan: Decrease the amount of carbohydrate intake, pasta, bread, rice and potatoes are all sugar and that is aside from all the sweet stuff, remember that fruits are good but they are Sweet also. Hemoglobin A1c goal of less than 7.0 patient on Farxiga 5 mg once a day metformin 1000 mg twice a day but had diarrhea with farxiga addition (2) Hypercholesterolemia: Code(s): E78.00 - Pure hypercholesterolemia, unspecified Plan: Avoid fried foods, chicken skin, eggs, butter margarine, pastries and meat. Be it pork or beef they have a lot of cholesterol LDL goal of less than 70 and triglyceride of less than 150. Last blood work at goal patient on simvastatin 40 mg once a day (3) Primary localized osteoarthritis of knees, bilateral: Code(s): M17.0 - Bilateral primary osteoarthritis of knee Plan: Planned total knee replacement under Dr. Paul. Patient is at high risk and considering not to have the surgery done (4) Atrial flutter: Code(s): I48.92 - Unspecified atrial flutter Plan: Continue with anticoagulation (5) Atherosclerotic cardiovascular disease: Code(s): I25.10 - Atherosclerotic heart disease of [place] coronary artery without angina pectoris Plan: Control the cholesterol, weight, blood pressure, diabetes continue with anticoagulation (6) History of CVA (cerebrovascular accident): Comment: 2019 Code(s): Z86.73 - Personal history of transient ischemic attack (TIA), and cerebral infarction without residual deficits Plan: Continue with anticoagulation (7) Scalp abscess: Code(s): L02.811 - Cutaneous abscess of head [any part, except face] Plan: Urgent Referral to surgeon and antibiotic prescription sent in Orders: Orders AMB Hemoglobin A1c Today E11.65 - Type 2 diabetes mellitus with hyperglycemia Referrals General Surgery Referral L02.811 - Cutaneous abscess of head [any part, except face] Medications: New sitagliptin phosphate (Januvia) 100 mg PO DAILY 30 tabs 3RF E11.65 - Type 2 diabetes mellitus with hyperglycemia amoxicillin-pot clavulanate 875-125 mg 1 tab PO BID 14 tabs 0RF L02.811 - Cut aneous abscess of head [any part, except face] Discontinued dapagliflozin propanediol (Farxiga) Discontinued Reason: Doctor's Order 5 mg PO DAILY 30 tabs 0RF E11.65 - Type 2 diabetes mellitus with hyperglycemia Coding Level of Care Code Est Pt Level 4 (37461) Diagnoses Type 2 diabetes mellitus with hyperglycemia, without long-term current use of insulin E11.65 Diabetes mellitus fdc insulin use: without long chain dyeing machine operator use Hypercholesterolemia E78.00 Primary localized osteoarthritis of knees, bilateral M17.0 Atrial flutter I48.92 Atherosclerotic cardiovascular disease I25.10 History of CVA (cerebrovascular accident) Z86.73 Scalp abscess L02.811
== END 2023-06-30 15:24 | disposition home or self-care (01) ==
PROVIDERS: PCP Internal Medicine; Visit Provider Internal Medicine
DX: E11.65 Type 2 diabetes mellitus with hyperglycemia (principal); I48.92 Unspecified atrial flutter; E78.00 Pure hypercholesterolemia, unspecified; M17.0 Bilateral primary osteoarthritis of knee; I25.10 Atherosclerotic heart disease of native coronary artery without angina pectoris; Z86.73 Personal history of transient ischemic attack (TIA), and cerebral infarction without residual deficits; L02.811 Cutaneous abscess of head [any part, except face]
CPT/HCPCS: 83036; 99214

== ENCOUNTER 2023-07-21 11:10 | Outpatient (AMB) | payer MEDICARE, SELFPAY ==
--- NOTE | 2023-07-21 11:17 | A.OFFVIS_ITS ---
Intake Vital Signs 3 07/21/23 11:30 Height 5 ft 5 in Weight 156 lb 4 oz BMI 26.0 BP 177/75 H Blood Pressure Location Lt brachial Position Sitting Pulse 65 Intake Visit Reasons: Cutaneous abscess of head Intake Note: Patient is seen in office for evaluation and treatment of a cutaneous abscess of the head. Pt c/o: onset a couple, has increase in size, done with antibiotic, painful to the touch, applied warm compress, denies discharge Transportation Maintenance Worker Required: No Accompanied by: Family/Other Allergies dapagliflozin [From [facility]] Adverse Reaction (Intermediate, Unverified 07/21/23 11:25) Diarrhea Medication List - Last Reconciled 07/21/23 by Evans Singh MD acetaminophen 650 mg (2 x 325 mg) PO Q6H PRN apixaban (Eliquis) 2.5 mg PO BID 90 days chlorpromazine 50 mg PO BEDTIME cholecalciferol (vitamin D3) 25 mcg PO DAILY cholestyramine-aspartame 4 gram (Cholestyramine Light) 1 ea PO DAILY clonazepam 1/2 tab in am and 1 tab in pm orally; cyanocobalamin (vitamin B-12) (Vitamin B-12) 1,000 mcg PO DAILY 90 days folic acid 1 mg PO DAILY lancets (FreeStyle Lancets) As directed check BS QD melatonin 6 mg (2 x 3 mg) PO BEDTIME PRN metformin 1,000 mg PO BIDWMEAL metoprolol succinate ER 25 mg PO DAILY sertraline 100 mg PO DAILY simvastatin 40 mg PO DAILY 90 days sitagliptin phosphate (Januvia) 100 mg PO DAILY HPI HPI Comments 2 History of Present Illness0 Details 78-year-old female patient presenting wi th a right forehead skin lesion. She is uncertain how long the lesion has been present but feels it increased in size after she scratched it. She developed an area of redness surrounding the skin lesion and was subsequently placed on oral antibiotics. The redness has now improved with the skin lesion remains. She denies previous surgery at this location. The patient is currently on Eliquis for arrhythmias. She has had a previous CVA and OR. [facility] Medical History History of CVA (cerebrovascular accident) Adjustment disorder with depressed mood Hyponatremia Preoperative cardiovascular examination Atherosclerotic cardiovascular disease Atrial flutter Preop exam for internal medicine Impacted cerumen of both ears Annual physical exam Frequency of micturition Generalized anxiety disorder Obesity (BMI 30.0-34.9) Annual physical exam Primary osteoarthritis of left knee Second degree AV block Overweight (BMI 25.0-29.9) Insomnia Tobacco abuse Hypercholesterolemia Osteoarthrosis Hypertension Type 2 diabetes mellitus with hyperglycemia Surgical History History of tonsillectomy History of cholecystectomy H/O breast reconstruction History of hip replacement Family History Father Cancer Mother Medical history unknown Brother Liver cancer Sister Hypertension COPD (chronic obstructive pulmonary disease) Social History Household Members: None Housing: Apartment Do you presently have visiting nurse or other home services: No Alcohol intake: never Patient Tobacco Use Status: Former Tobacco user Quit Date: 06/2022 Tobacco use type: Cigarette Cigarettes Per Day: 2 e-Cigarette/Vaping Use: Never Used Second Hand Smoke Exposure: No Advance Directives Date on File: 10/07/22 service: No Current occupational status: retired Current occupation: Right Handed Cognitive needs: No Hearing needs: No Vision needs: Yes Review of Systems Const All systems reviewed & are unremarkable except as noted in HPI and below Physical Exam Const General: no acute distress Nutritional Appearance: well nourished Orientation/consciousness: patient oriented x3 HEENT Face images: 2 1. 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 Infection is now improved however the lesion remains. I recommended an excision under local anesthesia for possible underlying skin cancer. After discussion of the procedure, risks, and alternatives, she consents to the surgery. Coding Level of Care Code New Pt Level 4 (15955) Diagnoses Benign skin lesion of forehead L98.9
[2023-07-21 11:30] VITALS: BP 177/75; PULSE 65; BMI 26.0
== END 2023-07-21 11:42 | disposition home or self-care (01) ==
PROVIDERS: PCP Internal Medicine; Referring Provider Internal Medicine; Visit Provider Surgery
DX: L98.9 Disorder of the skin and subcutaneous tissue, unspecified (principal)
CPT/HCPCS: 99214

== ENCOUNTER → 2023-07-21 11:10 | Outpatient (BNVA) | payer MEDICARE, SELFPAY | PROVIDERS: PCP Internal Medicine; Referring Provider Internal Medicine; Visit Provider Surgery | DX: L98.9 Disorder of the skin and subcutaneous tissue, unspecified (principal) | CPT/HCPCS: 99212 ==

== ENCOUNTER 2024-02-16 15:02 | Outpatient (AMB) | payer MEDICARE, SELFPAY ==
[2024-02-16 15:09] VITALS: BP 110/78; PULSE 80; O2SAT 96; BMI 25.3
--- NOTE | 2024-02-16 15:09 | A.OFFPC_ITS ---
Vital Signs 02/16/24 15:09 Height 5 ft 5 in Weight 152 lb BMI 25.3 BP 110/78 Blood Pressure Location Lt brachial Position Sitting Pulse 80 Pulse Source Pulse Oximeter Pulse Oximetry (%) 96 Oxygen Delivery Method Room Air Intake Visit Reasons: DM - see comments Intake Note: Patient is here to follow up on DM. Launch Manager Required: No Insert Cutter: Present Accompanied by: Daughter Allergies dapagliflozin [From [facility]] Adverse Reaction (Intermediate, Verified 02/16/24 15:09) Diarrhea Medication List - Last Reconciled 02/16/24 by Nayan Pavon MD acetaminophen 650 mg (2 x 325 mg) PO Q6H PRN apixaban (Eliquis) 2.5 mg PO BID 90 days blood sugar diagnostic (FreeStyle Test strips) Use 1 test strip once a day chlorpromazine 50 mg PO BEDTIME cholecalciferol (vitamin D3) 25 mcg PO DAILY cholestyramine-aspartame 4 gram (Cholestyramine Light) 1 ea PO DAILY clonazepam 1/2 tab in am and 1 tab in pm orally; cyanocobalamin (vitamin B-12) (Vitamin B-12) 1,000 mcg PO DAILY 90 days folic acid 1 mg PO DAILY lancets (FreeStyle Lancets) As directed check BS QD melatonin 6 mg (2 x 3 mg) PO BEDTIME PRN metformin 1,000 mg PO BIDWMEAL metoprolol succinate ER 25 mg PO DAILY sertraline 100 mg PO DAILY simvastatin 40 mg PO DAILY 90 days sitagliptin phosphate (Januvia) 100 mg PO DAILY Tobacco use date assessed: 02/16/24 Fall risk assessment: 2 + Falls in past year Last assessed Fall Risk: 02/16/24 Dental Screening Dental Screen Date: 06/30/23 HPI DM - see comments HPI Details 78 year old female with diabetes mellitu s hypercholesterolemia osteoarthritis of the knee atrial flutter coronary artery disease history of CVA coming in for follow-up. Last seen in June 2023. Patient's colonoscopy is up-to-date December 2016 due for bone density due for mammogram [facility] Medical History (Updated 02/16/24 @ 16:00 by Nayan Pavon MD) History of CVA (cerebrovascular accident) Adjustment disorder with depressed mood Hyponatremia Preoperative cardiovascular examination Atherosclerotic cardiovascular disease Atrial flutter Preop exam for internal medicine Impacted cerumen of both ears Annual physical exam Frequency of micturition Generalized anxiety disorder Obesity (BMI 30.0-34.9) Annual physical exam Primary osteoarthritis of left knee Second degree AV block Overweight (BMI 25.0-29.9) Insomnia Tobacco abuse Hypercholesterolemia Osteoarthrosis Hypertension Type 2 diabetes mellitus with hyperglycemia Surgical History History of tonsillectomy History of cholecystectomy H/O breast reconstruction History of hip replacement Family History Father Cancer Mother Medical history unknown Brother Liver cancer Sister Hypertension COPD (chronic obstructive pulmonary disease) Social History Household Members: None Housing: Apartment Do you presently have visiting nurse or other home services: No Alcohol intake: never Patient Tobacco Use Status: Former Tobacco user Tobacco use type: Cigarette Cigarettes Per Day: 2 e-Cigarette/Vaping Use: Never Used Second Hand Smoke Exposure: No Advance Directives Date on File: 10/07/22 service: No Current occupational status: retired Current occupation: Right Handed Cognitive needs: Yes (walker, Cane, Wheelchair) Hearing needs: No Vision needs: Yes (Glasses) Questionnaire Thrive Questionnaire Date Thrive assessed: 06/30/23 NAT-7 AMB Questionnaire NAT-7 Date NAT - 7 assessed: 06/30/23 Source: Developed by Drs. Alvaro Landis, Ban Moss, Joe Maradiaga and colleagues, with an educational lee ann from [email or web address] Physical exam (Primary Care) Vital Signs: Last Vital Signs Pulse 80 02/16/24 15:09 BP 110/78 02/16/24 15:09 Pulse Ox 96 02/16/24 15:09 Oxygen Delivery Method Room Air 02/16/24 15:09 BMI result Body Mass Index 25.3 Tobacco/Smoking Status: Tobacco use Status Tobacco use date assessed 02/16/24 02/16/24 15:22 Patient Tobacco Use Status Former Tobacco user 02/16/24 15:22 Tobacco use type Cigarette 02/16/24 15:22 e-Cigarette/Vaping Use Never Used 02/16/24 15:22 Thrive Assessment: Date of Thrive Assessment Date Thrive assessed 06/30/23 02/16/24 15:22 Const General: alert; No acute distress Eyes Conjunctivae: conjunctivae normal Resp Auscultation: clear to auscultation bilaterally Cardio Rate: regular rate Rhythm: regular rhythm GI Inspection: Yes normal to inspection Extrem General: Yes normal to inspection and No edema Results AMB Hemoglobin A1c AMB Hemoglobin A1c 8.2 % Last Edit by SIDNEY Perez on 02/16/24 15:22 Results Reviewed Results Reviewed: Laboratory Last Values Hgb A1c (Clinic) 8.2 % (4.0-6.0) H 02/16/24 15:08 Assessment and Plan Assessment & Plan (1) Type 2 diabetes mellitus with hyperglycemia: Comment: Dr. Rodas Code(s): E11.65 - Type 2 diabetes mellitus with hyperglycemia Qualifiers: Diabetes mellitus long distance billing operator insulin use: without long distance billing operator use Qualified Code(s): E11.65 - Type 2 diabetes mellitus with hyperglycemia Plan: Decrease the amount of carbohydrate intake, pasta, bread, rice and potatoes are all sugar and that is aside from all the sweet stuff, remember that fruits are good but they are Sweet also. Hemoglobin A1c goal of less than 7.0 patient on metformin a 1000 mg twice a day and Januvia 100 mg once a day (2) Hypercholesterolemia: Code(s): E78.00 - Pure hypercholesterolemia, unspecified Plan: Avoid fried foods, chicken skin, eggs, butter margarine, pastries and meat. Be it pork or beef they have a lot of cholesterol LDL goal of less than 70 and triglyceride of less than 150 on simvastatin 40 mg once a day patient needs blood work (3) Atrial flutter: Code(s): I48.92 - Unspecified atrial flutter Plan: Continue with anticoagulation on metoprolol (4) Atherosclerotic cardiovascular disease: Code(s): I25.10 - Atherosclerotic heart disease of [place] coronary artery without angina pectoris Plan: Control the cholesterol, weight, blood pressure, diabetes on anticoagulation Orders: Orders AMB Hemoglobin A1c Today E11.65 - Type 2 diabetes mellitus with hyperglycemia Free T4 (Free Thyroxine) Today E11.65 - Type 2 diabetes mellitus with hyperglycemia Thyroid Stimulating Hormone Today E11.65 - Type 2 diabetes mellitus with hyperglycemia Lipid Panel Today E11.65 - Type 2 diabetes mellitus with hyperglycemia, E78.00 - Pure hypercholesterolemia, unspecified Ferritin Today E11.65 - Type 2 diabetes mellitus with hyperglycemia IRON PROFILE Today E11.65 - Type 2 diabetes mellitus with hyperglycemia Microalbumin, Random (w Creat) Today E11.65 - Type 2 diabetes mellitus with hyperglycemia Creatinine Urine Today E11.65 - Type 2 diabetes mellitus with hyperglycemia Vitamin B12 and Folate Today E11.65 - Type 2 diabetes mellitus with hyperglycemia B Type Natriuretic Peptide Today E11.65 - Type 2 diabetes mellitus with hyperglycemia UA CC w/rflx Micro + Cult Today E11.65 - Type 2 diabetes mellitus with hyperglycemia, R30.0 - Dysuria XR DEXA axial skeleton Today M81.0 - Age-related osteoporosis without current pathological fracture Complete Blood Count Auto Diff Today E11.65 - Type 2 diabetes mellitus with hyperglycemia Comprehensive Met. Panel Today E11.65 - Type 2 diabetes mellitus with hyperglycemia Vitamin D 25-OH Total Today E11.65 - Type 2 diabetes mellitus with hyperglycemia Coding Level of Care Code Est Pt Level 4 (56382) Diagnoses Type 2 diabetes mellitus with hyperglycemia, without long-term current use of insulin E11.65 Diabetes mellitus fdc insulin use: without long distance billing operator use Hypercholesterolemia E78.00 Atrial flutter I48.92 Atherosclerotic cardiovascular disease I25.10
== END 2024-02-16 16:09 | disposition home or self-care (01) ==
PROVIDERS: PCP Internal Medicine; Visit Provider Internal Medicine
DX: E11.65 Type 2 diabetes mellitus with hyperglycemia (principal); E78.00 Pure hypercholesterolemia, unspecified; I48.92 Unspecified atrial flutter; I25.10 Atherosclerotic heart disease of native coronary artery without angina pectoris
CPT/HCPCS: 83036; 99214

== ENCOUNTER 2024-02-24 10:43 | Outpatient (REF) | payer MEDICARE, SELFPAY ==
[2024-02-24 11:05] LABS: MANUAL DIFF FLAG NO
[2024-02-24 11:23] LABS: Basophils Absolute Auto 0.1 X10*3/uL (0.0-0.2); Basophils Percent Auto 0.5 % (0-2); Eosinophils Absolute Auto 0.3 X10*3/uL (0.0-0.4); Eosinophils Percent Auto 3.4 % (0-4); Hematocrit 37.3 % (37.0-47.0); Hemoglobin 12.4 g/dl (12.0-16.0); Imm Gran Abs Auto 0.03 X10*3/uL (0.00-0.03); Imm Gran Pct Auto 0.3 % (0.0-0.4); Lymphocytes Percent Auto 31.4 % (20-40); Mean Corpuscular HGB Conc 33.2 g/dl (31.0-35.0); Mean Corpuscular Hemoglobin 27.9 pg (27.0-33.0); Monocytes Absolute Auto 0.6 X10*3/uL (0.1-1.2); Monocytes Percent Auto 6.1 % (2-11); Neutrophils Absolute Auto 5.5 x10*3/uL (2.0-8.3); Neutrophils Percent Auto 58.3 % (45-73); Platelet Count 389 X10*3/uL (160-400); Red Blood Count 4.44 X10*6/uL (4.20-5.50); Red Cell Distribution Width 13.6 % (11.0-16.0); White Blood Count 9.4 X10*3/uL (4.8-10.8)
[2024-02-24 12:02] LABS: B Type Natriuretic Peptide 50 pg/mL (<100)
[2024-02-24 12:04] LABS: Alanine Aminotransferase 18 U/L (0-31); Albumin Level 4.1 g/dL (3.5-5.0); Alkaline Phosphatase 87 U/L (39-117); Anion Gap 15 (12-20); Aspartate Amino Transferase 17 U/L (5-31); Bilirubin Total 0.4 mg/dL (0.0-1.0); Blood Urea Nitrogen 14 mg/dL (9-16); Calcium 9.8 mg/dL (8.4-10.2); Carbon Dioxide 22 mmol/L (22-29); Chloride 106 mmol/L (96-108); Cholesterol 90 mg/dL (<200); Estimated Glomerular Filt Rate > 60; Glucose Random 150 mg/dL (60-115); HDL Cholesterol 37 mg/dL (>40); Iron 41 mcg/dL (30-160); LDL Cholesterol Calculated 33 mg/dL (<100); Percent Iron Saturation 15 % (15-50); Potassium 4.3 mmol/L (3.3-5.1); Sodium 139 mmol/L (135-145); Total Iron Binding Capacity 278 mcg/dL (228-428); Total Protein 7.7 g/dL (6.5-8.0); Triglycerides 103 mg/dL (<150); Unsaturated Iron Binding 237 ug/dL
[2024-02-24 12:21] LABS: Ferritin 108 ng/mL (10-250); Free T4 (Free Thyroxine) 0.93 ng/dL (0.71-1.85); Thyroid Stimulating Hormone 1.12 uIU/mL (0.32-4.0); Vitamin D 25-OH Total 29.8 ng/mL (>30)
[2024-02-24 12:35] LABS: Folate 8.2 ng/mL (> or = 4.0); Vitamin B12 > 2000 pg/mL (200-900)
== END 2024-02-24 10:44 | disposition home or self-care (01) ==
LOC: HO.LAB 10:43
PROVIDERS: PCP Internal Medicine; Visit Provider Internal Medicine
DX: E11.65 Type 2 diabetes mellitus with hyperglycemia (principal); E78.00 Pure hypercholesterolemia, unspecified
CPT/HCPCS: 36415; 80053; 80061; 82306; 82607; 82728; 82746; 83540; 83880; 84439; 84443; 85025

== ENCOUNTER 2024-03-08 12:56 | Outpatient (REF) | payer MEDICARE, SELFPAY ==
--- NOTE | ~2024-03-08 | MM_ITS ---
EXAMINATION: BONE DENSITOMETRY CLINICAL INDICATION: Age-related osteoporosis without current pathological fracture. COMPARISON: Previous BD dated 11/19/2015 and baseline BD dated 01/17/2008. TECHNIQUE: Using a [employer] (PIROX), dual-energy x-ray absorptiometry was performed of the lumbar spine and right hip. The images are of good technical quality. Summary results are attached. FINDINGS: RIGHT FEMUR, NECK: Current: BMD 1.268 g/cm2, Z-score 3.7, T-score 1.7, normal. Prior: BMD 1.083 g/cm2. Baseline: BMD 0.993 g/cm2. RIGHT FEMUR, TOTAL: Current: BMD 1.156 g/cm2, Z-score 3.1, T-score 1.2, normal, 0.8% decrease from previous, 1.3% decrease from baseline (<5% change is not significant). Prior: BMD 1.165 g/cm2. Baseline: BMD 1.171 g/cm2. AP SPINE L1-L4: Current: BMD 1.423 g/cm2, Z-score 3.9, T-score 2.0, normal, 4.6% increase from previous, 18.6% increase from baseline (<5% change is not significant). Prior: BMD 1.360 g/cm2. Baseline: BMD 1.200 g/cm2. IDENTIFIED RISK FACTORS: Early menopause, secondary osteoporosis, history of fracture (adult). HISTORY OF FRACTURE: Shoulder. MEDICATIONS: Vitamin D. MM/XR DEXA axial skeleton IMPRESSION: 1. DIAGNOSIS: Normal bone density based on the lowest T-score value of 1.2 in the total femur applying World Health Organization criteria. 2. 10-YEAR FRACTURE RISK PREDICTION, FRAX: According to the guidelines, FRAX calculation should only be performed on patients in the osteopenia bone density category. Therefore, FRAX was not performed on this patient. 3. Treatment Recommendations: NOF guidelines recommend consideration for treatment in postmenopausal women and men age 50 and older presenting with the following: -A hip or vertebral (clinical or morphometric) fracture. -T-score less than or equal to -2.5 at the femoral neck or spine after appropriate evaluation to exclude secondary causes. -Low bone mass at the hip or spine and a 10-year fracture probability by FRAX of greater than or equal to 3% for hip fracture or greater than or equal to 20% for major osteoporotic fracture based on the [place] adapted WHO algorithm. 4. Other Recommendations: All treatment decisions require clinical judgment and consideration of individual patient factors, including patient preferences, comorbidities, previous drug use, risk factors not captured in the FRAX model (e.g. frailty, falls, vitamin D deficiency, increased bone turnover, interval significant decline in bone density) and possible under or overestimation of fracture risk by FRAX. FUTURE SCAN RECOMMENDATION: People with diagnosed cases of osteoporosis or at high risk for fracture should have regular bone mineral density tests. For patients eligible for Medicare, routine testing is allowed once every 2 years. The testing frequency can be increased to one year for patients who have rapidly progressing disease, those who are receiving or discontinuing medical therapy to restore bone mass, or have additional risk factors. Electronically signed by: Vern Becerril MD 03/27/2024 08:04 AM EDT
== END 2024-03-08 12:57 | disposition home or self-care (01) ==
LOC: HO.MAMMO 12:56
PROVIDERS: PCP Internal Medicine; Visit Provider Internal Medicine
DX: M81.0 Age-related osteoporosis without current pathological fracture (principal)
CPT/HCPCS: 77080

== ENCOUNTER 2024-03-18 11:22 | Outpatient (AMB) | payer MEDICARE, SELFPAY ==
[2024-03-18 11:23] VITALS: BMI 25.3
--- NOTE | 2024-03-18 11:23 | A.OFFVIS_ITS ---
Vital Signs 03/18/24 11:23 Height 5 ft 5 in Weight 152 lb BMI 25.3 Intake Visit Reasons: OV - Discuss Right TKA Intake Note: Jennifer is a 79 year old female who presents today for a follow up of her Right Knee OA. At her visit on 02/24/23 it was recommended that she move forward with TKA. Today she presents today to discuss surgical intervention, Right TKA. Allergies dapagliflozin [From [facility]] Adverse Reaction (Intermediate, Verified 03/18/24 11:24) Diarrhea HPI HPI OV - Discuss Right TKA: Details: Jennifer is a 79 year old female who presents today for a follow up of her Right Knee OA. At her visit on 02/24/23 it was recommended that she move forward with TKA. Today she presents today to discuss surgical intervention, Right TKA. She can not walk without a walker because of her right knee pain. She has pain at night and pain with activity. She had a heart attack and over a year ago. We had discussed knee replacement in the past but this obviously delayed that. She comes in today wanting to discuss right knee replacement again. She describes being on Eliquis now but not having had any surgery for her heart. [facility] Medical History (Updated 02/16/24 @ 16:00 by Nayan Pavon MD) History of CVA (cerebrovascular accident) Adjustment disorder with depressed mood Hyponatremia Preoperative cardiovascular examination Atherosclerotic cardiovascular disease Atrial flutter Preop exam for internal medicine Impacted cerumen of both ears Annual physical exam Frequency of micturition Generalized anxiety disorder Obesity (BMI 30.0-34.9) Annual physical exam Primary osteoarthritis of left knee Second degree AV block Overweight (BMI 25.0-29.9) Insomnia Tobacco abuse Hypercholesterolemia Osteoarthrosis Hypertension Type 2 diabetes mellitus with hyperglycemia Surgical History History of tonsillectomy History of cholecystectomy H/O breast reconstruction History of hip replacement Family History Father Cancer Mother Medical history unknown Brother Liver cancer Sister Hypertension COPD (chronic obstructive pulmonary disease) Social History Household Members: None Housing: Apartment Do you presently have visiting nurse or other home services: No Alcohol intake: never Patient Tobacco Use Status: Former Tobacco user Tobacco use type: Cigarette Cigarettes Per Day: 2 e-Cigarette/Vaping Use: Never Used Second Hand Smoke Exposure: No Advance Directives Date on File: 10/07/22 service: No Current occupational status: retired Current occupation: Right Handed Cognitive needs: Yes (walker, Cane, Wheelchair) Hearing needs: No Vision needs: Yes (Glasses) Physical Exam Vital Signs: BMI result Body Mass Index 25.3 Const General: no acute distress, alert and awake Orientation/consciousness: patient oriented x3 HEENT Head: Yes normocephalic and Yes atraumatic Eyes EOM: EOMs intact bilaterally Resp Effort & Inspection: normal respiratory effort and able to speak in complete sentences Cardio Jugular venous distension: no JVD Skin General skin exam: turgor normal Rashes: no rashes Neuro General: patient oriented x3 Extrem Other: Right Knee: Antalgic gait TTP medial compartment 5-125 degrees ROM Psych Appearance: grossly normal Affect: normal affect Attitude: cooperative Results Reviewed Results Reviewed: I personally reviewed relevant radiographs. Right knee medial compartment arthritis with varus malalignment Assessment & Plan Assessment & Plan (1) Osteoarthritis of right knee: Code(s): M17.11 - Unilateral primary osteoarthritis, right knee Category: Medical Plan: This is a 79-year-old woman with right knee osteoarthritis. She has had injections in the past and does not want to repeat those. She wants it curative treatment . We had discussed knee replacement in the past but she subsequently had a non ST elevation NE. she wants to revisit this issue. She is also diabetic and has history of a CVA. She underwent a successful left hip replacement approximately 12 years ago. I think is reasonable to get cardiac clearance for her and if she is deemed low risk I think we can proceed forward if she had deemed high risk we will not proceed forward and if she is deemed moderate risk we will discuss. I explained this to her. He seems to understand (2) History of non-ST elevation myocardial infarction (NSTEMI): Code(s): I25.2 - Old myocardial infarction Category: Medical Plan: (3) Type 2 diabetes mellitus with hyperglycemia: Comment: Dr. Rodas Code(s): E11.65 - Type 2 diabetes mellitus with hyperglycemia Category: Medical Qualifiers: Diabetes mellitus fdc insulin use: without middle or intermediate school principal use Qualified Code(s): E11.65 - Type 2 diabetes mellitus with hyperglycemia Plan: Coding Level of Care Code Est Pt Level 4 (66979) Diagnoses Osteoarthritis of right knee M17.11 History of non-ST elevation myocardial infarction (NSTEMI) I25.2 Type 2 diabetes mellitus with hyperglycemia, without long-term current use of insulin E11.65 Diabetes mellitus middle or intermediate school principal insulin use: without middle or intermediate school principal use
== END 2024-03-18 12:11 | disposition home or self-care (01) ==
PROVIDERS: PCP Internal Medicine; Visit Provider Orthopaedic Surgery
DX: M17.11 Unilateral primary osteoarthritis, right knee (principal); I25.2 Old myocardial infarction; E11.65 Type 2 diabetes mellitus with hyperglycemia
CPT/HCPCS: 99214

== ENCOUNTER → 2024-03-18 11:22 | Outpatient (BNVA) | payer MEDICARE, SELFPAY | PROVIDERS: PCP Internal Medicine; Visit Provider Orthopaedic Surgery | DX: M17.11 Unilateral primary osteoarthritis, right knee (principal); I25.2 Old myocardial infarction; E11.65 Type 2 diabetes mellitus with hyperglycemia | CPT/HCPCS: 99212 ==

== ENCOUNTER → 2024-04-18 14:51 | Outpatient (BNVA) | payer MEDICARE, SELFPAY | PROVIDERS: PCP Internal Medicine; Visit Provider Nurse Practitioner Family ==

== ENCOUNTER → 2024-04-26 12:45 | Outpatient (BNV) | payer MEDICARE, SELFPAY | PROVIDERS: PCP Internal Medicine; Visit Provider Internal Medicine | DX: Z12.31 Encounter for screening mammogram for malignant neoplasm of breast (principal) | CPT/HCPCS: 77063; 77067 ==

== ENCOUNTER 2024-04-26 12:47 | Outpatient (REF) | payer MEDICARE, SELFPAY ==
--- NOTE | ~2024-04-26 | MM_ITS ---
EXAMINATION: MM SCREENING DIGITAL BREAST TOMOSYNTHESIS, BILATERAL CLINICAL INFORMATION: Screening. Asymptomatic. COMPARISON: Mammography: Comparison is made with available priors TECHNIQUE: Digital breast mammography with tomosynthesis is performed in both the craniocaudal and mediolateral oblique views along with computer-aided detection (CAD). FINDINGS: There are scattered areas of fibroglandular density (ACR BI-RADS breast composition Category b). Bilateral reduction mammoplasty. There are no significant masses, abnormal calcifications, or other abnormalities. MM/MM tomosynthesis screening BI IMPRESSION: No mammographic evidence of malignancy. ASSESSMENT: BI-RADS BI-RADS 2 - Benign Findings RECOMMENDATION: Routine annual mammography screening. 1 year F/U This examination should not preclude the clinical evaluation of a suspicious palpable abnormality. This patient's information was entered into a reminder system with a target due date for their next mammogram. Electronically signed by: Adrienne Webster DO 05/07/2024 09:13 AM [place]
== END 2024-04-26 12:48 | disposition home or self-care (01) ==
LOC: HO.MAMMO 12:47
PROVIDERS: PCP Internal Medicine; Visit Provider Internal Medicine
DX: Z12.31 Encounter for screening mammogram for malignant neoplasm of breast (principal)
CPT/HCPCS: 77063; 77067

== ENCOUNTER 2024-07-05 13:39 | Outpatient (AMB) | payer MEDICARE, SELFPAY ==
[2024-07-05 13:45] VITALS: BP 122/60; PULSE 65; BMI 24.9
--- NOTE | 2024-07-05 13:45 | A.OFFVIS_ITS ---
Vital Signs 07/05/24 13:45 Height 5 ft 5 in Weight 149 lb 14.629 oz BMI 24.9 BP 122/60 Blood Pressure Location Lt brachial Position Sitting Pulse 65 Pulse Source Monitor Intake Visit Reasons: Preop TKA Allergies dapagliflozin [From [facility]] Adverse Reaction (Intermediate, Verified 03/18/24 11:24) Diarrhea Medication List - Last Reconciled 07/05/24 by Renetta Crawford [employer]SERVATION SCIENTIST-C acetaminophen 650 mg (2 x 325 mg) PO Q6H PRN apixaban (Eliquis) 2.5 mg PO BID 90 days blood sugar diagnostic (FreeStyle Test strips) Use 1 test strip once a day chlorpromazine 50 mg PO BEDTIME cholecalciferol (vitamin D3) 25 mcg PO DAILY cholestyramine-aspartame 4 gram (Cholestyramine Light) 1 ea PO DAILY clonazepam 1/2 tab in am and 1 tab in pm orally; cyanocobalamin (vitamin B-12) (Vitamin B-12) 1,000 mcg PO DAILY 90 days folic acid 1 mg PO DAILY lancets (FreeStyle Lancets) As directed check BS QD melatonin 6 mg (2 x 3 mg) PO BEDTIME PRN metformin 1,000 mg PO BIDWMEAL metoprolol succinate ER 25 mg PO DAILY sertraline 100 mg PO DAILY simvastatin 40 mg PO DAILY 90 days sitagliptin phosphate (Januvia) 100 mg PO DAILY HPI HPI Preop TKA: Details: Jennifer is a 79-year-old female past medical history of hypertension, hyperlipidemia, diabetes, obesity, smoking, quit 06/2023, atrial flutter, NSTEMI 06/2022, abnormal nuclear stress test who is requesting preop clearance for total knee replacement. Today she reports that she has not had any heart issues since her last visit here 04/07/2023. She says does get sharp pains in her chest periodically. She has no pain brought on by walking. She is mostly sedentary and ambulates only short distances with a willing walker. Her activity is limited by bilateral knee pain/arthritis. No shortness of breath, PND, orthopnea or edema. No palpitations, lightheadedness, presyncope, syncope, falls. She is taking her meds as directed. No bleeding issues reported. [facility] Medical History (Updated 07/05/24 @ 16:56 by Renetta Crawford NP-C) Preoperative cardiovascular examination Hypertension History of CVA (cerebrovascular accident) Adjustment disorder with depressed mood Hyponatremia Atherosclerotic cardiovascular disease Atrial flutter Preop exam for internal medicine Impacted cerumen of both ears Annual physical exam Frequency of micturition Generalized anxiety disorder Obesity (BMI 30.0-34.9) Annual physical exam Primary osteoarthritis of left knee Second degree AV block Overweight (BMI 25.0-29.9) Insomnia Tobacco abuse Hypercholesterolemia Osteoarthrosis Type 2 diabetes mellitus with hyperglycemia Surgical History History of tonsillectomy History of cholecystectomy H/O breast reconstruction History of hip replacement Family History Father Cancer Mother Medical history unknown Brother Liver cancer Sister Hypertension COPD (chronic obstructive pulmonary disease) Social History Household Members: None Housing: Apartment Do you presently have visiting nurse or other home services: No Alcohol intake: never Patient Tobacco Use Status: Former Tobacco user Tobacco use type: Cigarette Cigarettes Per Day: 2 e-Cigarette/Vaping Use: Never Used Second Hand Smoke Exposure: No Advance Directives Date on File: 10/07/22 service: No Current occupational status: retired Current occupation: Right Handed Cognitive needs: Yes (walker, Cane, Wheelchair) Hearing needs: No Vision needs: Yes (Glasses) Review of Systems Const All systems reviewed & are unremarkable except as noted in HPI and below Denies weakness ENT Denies dizziness Card Denies chest pain, Denies chest pain with activity, Denies syncope, Denies rapid heart rate, Denies pedal edema, Denies edema, Denies leg edema, Denies lightheadedness, Denies palpitations, Denies dyspnea, Reports dyspnea on exertion (does only very light activity) and Denies orthopnea Resp Denies cough, Denies dyspnea and Reports dyspnea on exertion (does only very light activity) GI Denies hematochezia and Denies change in stool character Musc Details: pain in both knees Reports abnormal gait (uses walker), Denies muscle cramps, Denies muscle weakness, Denies numbness, Denies radiating pain into limb and Denies tingling Neuro Reports abnormal gait (uses walker), Denies dizziness, Denies syncope, Denies numbness, Denies tingling and Denies weakness Endo Denies palpitations Physical Exam Vital Signs: Last Vital Signs Pulse 65 07/05/24 13:45 BP 122/60 07/05/24 13:45 BMI result Body Mass Index 24.9 Const General: cooperative, healthy appearing, comfortable and no acute distress Orientation/consciousness: patient oriented x3 Neck Neck: Yes normal visual inspection Resp Effort & Inspection: normal respiratory effort Auscultation: clear to auscultation bilaterally, no rales, no rhonchi and no wheezes Cardio Rate: regular rate Rhythm: regular rhythm Heart sounds: S1 normal heart sound present, S2 normal heart sound present, no murmurs and no rubs Neuro General: patient oriented x3 Extrem General: Yes normal to inspection, No no pedal edema and No calf tenderness Psych Appearance: grossly normal Mental Status: mental status grossly normal Speech and movement: Normal speech and movement present Office Procedures EKG Details: Today, read by me, atrial flutter with variable AV block, nonspecific intraventricular conduction delay, 1 PVC rate 65 [id number], Complete Assessment & Plan Assessment & Plan (1) Atherosclerotic cardiovascular disease: Code(s): I25.10 - Atherosclerotic heart disease of [place] coronary artery without angina pectoris Category: Medical Plan: NSTEMI 06/2022. Echocardiogram done at that time showed EF 60-65%, wall motion abnormality in the mid to distal LAD territory. Nuclear stress test done 07/06/2022 showed mixed infarct/ischemia in the mid to distal inferior lateral wall. On a follow-up visit cardiac catheterization was discussed and she declined. At this time she is now preop for a knee replacement. She gets atypical chest discomfort. Her activity level is less than 4 Mets. EKG done today shows atrial flutter with variable AV block, 1 PVC, rate 65. She has multiple cardiac risk factors including hypertension, hyperlipidemia, diabetes, prior smoking, obesity. Informed her that in order to clear her for surgery she will need a cardiac catheterization for further evaluation. Details of the procedure, risks, expected outcomes reviewed. If a stent is placed it will postpone her ability to have knee replacement surgery. She is agreeable proceed. Will make arrangements for cardiac catheterization, preprocedure labs ordered. She will need to hold Eliquis prior to the procedure as well as Januvia per protocol. Will update her echocardiogram. Cardiology follow-up 2 weeks post cardiac catheterization. She is not on aspirin as she is on Eliquis. She is on simvastatin with ideal LDL goal less than 70. Labs done 02/24/2024 showed LDL 33. She is on metoprolol. (2) Atrial flutter: Code(s): I48.92 - Unspecified atrial flutter Category: Medical Plan: History of atrial flutter. Unknown to me if this is persistent or paroxysmal. Last sinus EKG I see is 09/24/2022. EKG today shows atrial flutter with variable AV block, rate 65. Will have her continue on metoprolol. Continue Eliquis for anticoagulation. Her Eliquis dose is currently at 2.5 mg b.i.d.. It seems she did have JHONNY in the past with creatinine as high as 6.58. Her creatinine levels have been normal since 09/2022. Based on her current age, weight and creatinine her Eliquis dose should be 5 mg b.i.d.. Will send new dose to her pharmacy and notify her of this. (3) History of non-ST elevation myocardial infarction (NSTEMI): Code(s): I25.2 - Old myocardial infarction Category: Medical Plan: As above (4) Hypercholesterolemia: Code(s): E78.00 - Pure hypercholesterolemia, unspecified Category: Medical Plan: LDL goal less than 70. LDL is well controlled. Continue simvastatin. (5) Osteoarthritis of left knee: Code(s): M17.12 - Unilateral primary osteoarthritis, left knee Category: Medical Plan: Following with Dr. Paul (6) Osteoarthritis of right knee: Code(s): M17.11 - Unilateral primary osteoarthritis, right knee Category: Medical Plan: Following with Dr. Paul (7) Preoperative cardiovascular examination: Code(s): Z01.810 - Encounter for preprocedural cardiovascular examination Category: Medical Plan: Preop for total knee replacement Dr. Paul. Patient believes she is having her left done. No date yet. Cardiac testing needed as above. Once results are known then her preop clearance will be addressed. (8) Hypertension: Code(s): I10 - Essential (primary) hypertension Category: Medical Qualifiers: Hypertension type: essential hypertension Qualified Code(s): I10 - Essential (primary) hypertension Plan: Well controlled at this time. (9) Abnormal nuclear stress test: Code(s): R94.39 - Abnormal result of other cardiovascular function study Category: Medical Plan: As above Plan Time spent on chart review, documentation, interview and assessment Orders: Orders Complete Blood Count Auto Diff Today R94.39 - Abnormal result of other cardiovascular function study Prothrombin Time INR Today R94.39 - Abnormal result of other cardiovascular function study Basic Metabolic Panel Today R94.39 - Abnormal result of other cardiovascular function study CA echo transthoracic complete Today R94.39 - Abnormal result of other cardiovascular function study Cardiac Cath LT w PCI Today I25.10 - Atherosclerotic heart disease of [place] coronary artery without angina pectoris, R94.39 - Abnormal result of other cardiovascular function study, Z01.810 - Encounter for preprocedural cardiovascular examination ECG 3 day holter monitor Today I48.92 - Unspecified atrial flutter Coding Level of Care Code Est Pt Level 4 (26878) Complex EM visit Add On G2211 Diagnoses Atherosclerotic cardiovascular disease I25.10 Atrial flutter I48.92 History of non-ST elevation myocardial infarction (NSTEMI) I25.2 Hypercholesterolemia E78.00 Osteoarthritis of left knee M17.12 Osteoarthritis of right knee M17.11 Preoperative cardiovascular examination Z01.810 Essential hypertension I10 Hypertension type: essential hypertension Abnormal nuclear stress test R94.39 CPT Codes EKG - CPT: [id number], Complete ([id number]) Time Spent (min) 36
== END 2024-07-05 15:07 | disposition home or self-care (01) ==
PROVIDERS: PCP Internal Medicine; Visit Provider Nurse Practitioner Family
DX: I48.92 Unspecified atrial flutter (principal)
CPT/HCPCS: 93010

== ENCOUNTER → 2024-07-05 13:39 | Outpatient (BNVA) | payer MEDICARE, SELFPAY | PROVIDERS: PCP Internal Medicine; Visit Provider Nurse Practitioner Family | DX: Z01.810 Encounter for preprocedural cardiovascular examination (principal); I25.10 Atherosclerotic heart disease of native coronary artery without angina pectoris; I48.92 Unspecified atrial flutter; I25.2 Old myocardial infarction; R94.39 Abnormal result of other cardiovascular function study; I10 Essential (primary) hypertension; E78.00 Pure hypercholesterolemia, unspecified; M17.0 Bilateral primary osteoarthritis of knee | CPT/HCPCS: 93005; 99212 ==

== ENCOUNTER 2024-07-10 10:37 | Outpatient (REF) | payer MEDICARE, SELFPAY ==
[2024-07-10 11:05] LABS: MANUAL DIFF FLAG NO
--- OUTSIDE RECORDS SUMMARY | 2024-07-10 11:52 | XMS_ITS | Clinical Summary ---
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 Active metFORMIN (GLUCOPHAGE) 1,000 mg tablet Take 1 tablet (1,000 mg total) by mouth 2 (two) times a day with meals. Active sertraline (ZOLOFT) 100 mg tablet Take 1 tablet (100 mg total) by mouth 1 (one) time each day. Active simvastatin (ZOCOR) 40 mg tablet Take 1 tablet (40 mg total) by mouth 1 (one) time each day. Active hydrOXYzine HCL (ATARAX) 25 mg tablet Take 1 tablet (25 mg total) by mouth 2 (two) times a day if needed. Active Eliquis 2.5 mg tablet Take 1 tablet (2.5 mg total) by mouth 2 (two) times a day. 06/13/2023 Active Active Problems No known active problems Resolved Problems Problem Noted Date Diagnosed Date Resolved Date Traumatic rhabdomyolysis, initial encounter 05/22/2024 05/24/2024 JHONNY (acute kidney injury) 05/22/2024 Encounters Date Type Department Care Team Description 05/22/2024 12:37 PM EST - 05/24/2024 4:22 PM EST Hospital Encounter [facility] [address] [place] [address] James Herron MD Japaridze, Anna, MD Traumatic rhabdomyolysis, initial encounter ([facility]) (Primary Dx); Elevated troponin Discharge Disposition: Home or Self Care from Last 3 Months Medical History Medical History Date Comments Hypertension Diabetes mellitus ([facility]) CKD (chronic kidney disease) Atrial flutter ([facility]) Social History Tobacco Use Types Packs/Day Years Used Date Smoking Tobacco: Never Smokeless Tobacco: Never Tobacco Cessation:Counseling Given: Not Answered Alcohol Use Standard Drinks/Week Comments Never 0 (1 standard drink = 0.6 oz pur e alcohol) Interpersonal Safety Answer Date Record ed Physical Abuse 05/24/2024 Verbal Abuse 05/24/2024 Sex and Gender Information Value Date Recorded Sex Assigned at Not on file Gender Identity Not on file Sexual Orientation Not on file Job Start Date Occupation Industry Not on file Not on file Not on file Obstetrics History Last Filed Vital Signs Vital Sign Reading Time Taken Comments Blood Pressure 164/71 05/24/2024 11:40 AM EST Pulse 63 05/24/2024 11:40 AM EST Temperature 36.6 ??C (97.9 ??F) 05/24/2024 1 1:40 AM EST Respiratory Rate 20 05/24/2024 11:4 0 AM EST Oxygen Saturation 97% 05/24/2024 11: 40 AM EST Inhaled Oxygen Concentration - - Weight 66.6 kg (146 lb 13.2 oz) 05/23/2024 8:56 AM EST Height 167.6 cm (5' 5.98 ) 05/23/2024 8:56 AM ES T Body Mass Index 23.71 05/23/2024 8:56 AM EST Plan of Treatment Health Maintenance Due Date Last Done Comments Diabetes: Annual Foot Exam 1956 Diabetes: Annual Retina Eye Exam 1955 Zoster Vaccines (1 of 2) 1996 RSV Immunization Patients 60+ Years Old (1 - 1-dose 75+ series) 2021 Pneumococcal Vaccine: 65+ Years (2 of 2 - PCV) 11/09/2022 11/09/2021, 04/25/2017 COVID-19 Vaccine ( - season) 2024 10/25/2022, 05/10/2022, 11/02/2021, Additional history exists Influenza Vaccine (#1) 2024 05/24/2022, 2016 Depression Screening 03/28/2024 Hepatitis C Screening 03/28/2024 Medicare Annual Wellness Visit 03/28/2024 Osteoporosis Screening (Bone Density Screening) 03/28/2024 Social Influencers of Health Screening 03/28/2024 Diabetes: Annual Urine Albumin-Creatinine Ratio (uACR) 05/22/2024 Diabetes: Blood Sugar Control Test (HGBA1C) 11/20/2024 05/22/2024 Diabetes: Annual GFR (Glomerular Filtration Rate) 05/24/2025 05/24/2024, 05/23/2024, 05/22/2024 Falls Risk Assessment 05/24/2025 05/24/2024 Hypertension/CHF/CAD Annual BMP Blood Test 05/24/2025 05/24/2024, 05/23/2024, 05/22/2024 DTaP,Tdap,and Td Vaccines (3 - Td or Tdap) 09/07/2027 09/06/2017, 09/06/2017 Cholesterol Screening (Lipid Panel) 05/23/2029 05/23/2024 HIB Vaccines Aged Out No longer eligi ble based on patient's age to complete this topic HPV Vaccines Aged Out No longer eligi ble based on patient's age to complete this topic Hepatitis A Vaccines Aged Out No long er eligible based on patient's age to complete this topic Hepatitis B Vaccines Aged Out No long er eligible based on patient's age to complete this topic IPV Vaccines Aged Out No longer eligi ble based on patient's age to complete this topic MMR Vaccines Aged Out No longer eligi ble based on patient's age to complete this topic Meningococcal ACWY Vaccine Aged Out N o longer eligible based on patient's age to complete this topic RSV Immunization Patients Under 20 months Aged Out No longer eligible based on patient's age to complete this topic Varicella Vaccines Aged Out No longer eligible based on patient's age to complete this topic Procedures Procedure Name Priority Date/Time Associated Diagnosis Comments POCT GLUCOSE BLOOD Routine 05/24/2024 11 :52 AM EST POCT GLUCOSE BLOOD Routine 05/24/2024 7: 35 AM EST CBC WITH AUTO DIFFERENTIAL Routine 05/24/2024 6:09 AM EST CREATINE KINASE AND CKMB Routine 05/24/2024 6:09 AM EST CBC AND DIFFERENTIAL Routine 05/24/2024 6:09 AM EST BASIC METABOLIC PANEL Routine 05/24/2024 6:09 AM EST POCT GLUCOSE BLOOD Routine 05/23/2024 8: 29 PM EST POCT GLUCOSE BLOOD Routine 05/23/2024 4: 19 PM EST POCT GLUCOSE BLOOD Routine 05/23/2024 10 :23 AM EST TRANSTHORACIC ECHOCARDIOGRAM (TTE) COMPLETE W/ CONTRAST Routine 05/23/2024 8:56 AM EST Elevated troponin CBC WITH AUTO DIFFERENTIAL Routine 05/23/2024 6:15 AM EST LIPID PANEL WITH REFLEX TO DIRECT LDL Routine 05/23/2024 6:15 AM EST MAGNESIUM Routine 05/23/2024 6:15 AM EST CREATINE KINASE AND CKMB Routine 05/23/2024 6:15 AM EST CBC AND DIFFERENTIAL Routine 05/23/2024 6:15 AM EST BASIC METABOLIC PANEL Routine 05/23/2024 6:15 AM EST TROPONIN I HIGH SENSITIVITY Routine 05/22/2024 11:30 PM EST PHOSPHORUS Routine 05/22/2024 10:01 PM EST TROPONIN I HIGH SENSITIVITY Routine 05/22/2024 10:01 PM EST HEPATIC FUNCTION PANEL Routine 10:01 PM EST LACTATE Routine 05/22/2024 10:01 PM EST PROCALCITONIN Add-On 05/22/2024 10:01 PM EST CULTURE BLOOD STAT 05/22/2024 10:01 PM EST ECG 12-LEAD Routine 05/22/2024 8:22 PM EST TROPONIN I HIGH SENSITIVITY STAT 05/22/2024 6:[address] ABDOMEN PELVIS W CONTRAST STAT 05/22/2024 6:14 PM EST TY URINE CULTURE TUBE STAT 05/22/2024 5:15 PM EST URINALYSIS WITH REFLEX MICROSCOPIC AND CULTURE STAT 05/22/2024 5:15 PM EST URINALYSIS WITH REFLEX MICROSCOPIC AND CULTURE STAT 05/22/2024 5:15 PM EST C-REACTIVE PROTEIN Add-On 05/22/2024 4: 05 PM EST CREATINE KINASE STAT Add-on 05/22/2024 4:05 PM EST MAGNESIUM STAT 05/22/2024 4:05 PM EST BASIC METABOLIC PANEL STAT 05/22/2024 4:05 PM EST LACTATE STAT 05/22/2024 2:53 PM EST TROPONIN I HIGH SENSITIVITY STAT 05/22/2024 2:[address] CERVICAL SPINE WO CONTRAST STAT 05/22/2024 2:[address] HEAD WO CONTRAST STAT 05/22/2024 2 :24 PM EST ECG 12-LEAD STAT 05/22/2024 1:48 PM EST MANUAL DIFFERENTIAL - SYSMEX WAM STAT 05/22/2024 1:05 PM EST HEMOGLOBIN A1C Add-On 05/22/2024 1:05 PM EST CBC WITH AUTO DIFFERENTIAL STAT 05/22/2024 1:05 PM EST CBC AND DIFFERENTIAL STAT 05/22/2024 1:05 PM EST IA CRITICAL CARE 30-74 MINUTES Routine 05/22/2024 12:11 PM EST ECG ANNOTATED 05/22/2024 from Last 3 Months Results * (ABNORMAL) POCT Glucose, blood (05/24/2024 11:52 AM EST) Only the most recent of5 resultswithin the time period is included. Glucose POCT 331(H) 70 - 100 mg/dL 05/24/2024 11:53 AM EST [facility] Blood Capillary blood specimen / Unknown 05/24/2024 11:52 AM EST 05/24/2024 11:54 AM EST Amanda Day MD LAB POINT OF CARE TE ST DOCKED DEVICE UNSOLICITED RESULTS [facility] [address] [place] [address], * (ABNORMAL) CBC auto differential (05/24/2024 6:09 AM EST) Only the most recent of3 resultswithin the time period is included. WBC 12.7(H) 4.8 - 10.8 K/mcL LAB HEMETOLOGY METHOD 05/24/2024 7:36 AM EST [facility] RBC 4.30 3.80 - 4.80 M/mcL LAB HEMETOLOGY METHOD 05/24/2024 7:36 AM EST [facility] Hemoglobin 11.4(L) 11.5 - 16.0 g/dL LAB HEMETOLOGY METHOD 05/24/2024 7:36 AM [facility] Hematocrit 35.6 35.0 - 47.0 % LAB HEMETOLOGY METHOD 05/24/2024 7:36 AM [facility] MCV 82.2 79.0 - 98.0 FL LAB HEMETOLOGY METHOD 05/24/2024 7:36 AM [facility] MCH 26.3(L) 27.0 - 32.0 pcg LAB HEMETOLOGY METHOD 05/24/2024 7:36 AM [facility] MCHC 32.0 32.0 - 37.0 g/dL LAB HEMETOLOGY METHOD 05/24/2024 7:36 AM [facility] RDW 13.9 11.0 - 15.0 % LAB HEMETOLOGY METHOD 05/24/2024 7:36 AM [facility] Platelets 343 130 - 400 K/mcL LAB HEMETOLOGY METHOD 05/24/2024 7:36 AM [facility] MPV 9.6 7.0 - 11.0 FL LAB HEMETOLOGY METHOD 05/24/2024 7:36 AM [facility] NRBC 0.0 <1.0 % LAB HEMETOLOGY METHOD 05/24/2024 7:36 AM [facility] NRBC Absolute 0.00 <0.10 K/mcL LAB HEMETOLOGY METHOD 05/24/2024 7:36 AM [facility] Neutrophils Relative 73.0 % LAB HEMETOLOGY METHOD 05/24/2024 7:36 AM [facility] Lymphocytes Relative 18.4 % LAB HEMETOLOGY METHOD 05/24/2024 7:36 AM [facility] Monocytes Relative 5.8 % LAB HEMETOLOGY METHOD 05/24/2024 7:36 AM [facility] Eosinophils Relative 2.0 % LAB HEMETOLOGY METHOD 05/24/2024 7:36 AM EST [facility] Basophils Relative 0.5 % LAB HEMETOLOGY METHOD 05/24/2024 7:36 AM [facility] Immature Granulocytes Relative 0.3 % LAB HEMETOLOGY METHOD 05/24/2024 7:36 AM [facility] Neutrophils Absolute 9.25(H) 1.50 - 7.00 K/mcL LAB HEMETOLOGY METHOD 05/24/2024 7:36 AM EST [facility] Lymphocytes Absolute 2.34 1.00 - 5.00 K/mcL LAB HEMETOLOGY METHOD 05/24/2024 7:36 AM [facility] Monocytes Absolute 0.74 0.20 - 1.00 K/mcL LAB HEMETOLOGY METHOD 05/24/2024 7:36 AM [facility] Eosinophils Absolute 0.26 0.00 - 0.50 K/mcL LAB HEMETOLOGY METHOD 05/24/2024 7:36 AM EST [facility] Basophils Absolute 0.06 0.00 - 0.20 K/mcL LAB HEMETOLOGY METHOD 05/24/2024 7:36 AM [facility] Immature Granulocytes Absolute 0.04(H) 0.00 - 0.03 K/mcL LAB HEMETOLOGY METHOD 05/24/2024 7:36 AM EST [facility] Blood Venous blood specimen / Unknown Venipuncture / Unknown 05/24/2024 6:09 AM EST 05/24/2024 7:25 AM EST Amanda Day MD LAB BLOOD ORDERABLES [facility] [address] [place] [address], * (ABNORMAL) Creatine kinase and CKMB (05/24/2024 6:09 AM EST) Only the most recent of2 resultswithin the time period is included. [facility] Total CK 574(H) 22 - 269 unit/L LAB CHEMISTRY METHOD 05/24/2024 8:10 AM [facility] CK-MB 4.1(H) 1.0 - 3.6 ng/mL LAB CHEMISTRY METHOD 05/24/2024 8:10 AM [facility] CK-MB Index 0.0 0.0 - 5.0 LAB CHEMISTRY METHOD 05/24/2024 8:10 AM [facility] Blood Venous blood specimen / Unknown Venipuncture / Unknown 05/24/2024 6:09 AM EST 05/24/2024 7:26 AM EST Amanda Day MD LAB BLOOD ORDERABLES [facility] [address] [place] [address], * (ABNORMAL) Basic metabolic panel (05/24/2024 6:09 AM EST) Only the most recent of3 resultswithin the time period is included. [facility] Sodium 139 133 - 145 mmol/L LAB CHEMISTRY METHOD 05/24/2024 8:07 AM [facility] Potassium 4.1 3.5 - 5.5 mmol/L LAB CHEMISTRY METHOD 05/24/2024 8:07 AM [facility] Chloride 107 96 - 110 mmol/L LAB CHEMISTRY METHOD 05/24/2024 8:07 AM [facility] CO2 23 21 - 32 mmol/L LAB CHEMISTRY METHOD 05/24/2024 8:07 AM [facility] Anion Gap 9 3 - 11 LAB CHEMISTRY METHOD 05/24/2024 8:07 AM [facility] Glucose 242(H) 70 - 100 mg/dL LAB CHEMISTRY METHOD 05/24/2024 8:07 AM [facility] BUN 21 5 - 25 mg/dL LAB CHEMISTRY METHOD 05/24/2024 8:07 AM [facility] Creatinine 0.77 0.50 - 1.10 mg/dL LAB CHEMISTRY METHOD 05/24/2024 8:07 AM [facility] eGFR 79 >=60 mL/min/1. 73m2 LAB CHEMISTRY METHOD 05/24/2024 8:07 AM [facility] Comment:Calculation based on the??Chronic Kidney Disease Epidemiology Collaboration (CKD-EPI) equation refit??without adjustment for race. BUN/Creatinine Ratio 27.3 LAB CHEMISTRY METHOD 05/24/2024 8:07 AM [facility] Calcium 8.6 8.5 - 10.5 mg/dL LAB CHEMISTRY METHOD 05/24/2024 8:07 AM [facility] Blood Venous blood specimen / Unknown Venipuncture / Unknown 05/24/2024 6:09 AM EST 05/24/2024 7:26 AM EST Amanda Day MD LAB BLOOD ORDERABLES [facility] [address] [place] [address], * (ABNORMAL) TRANSTHORACIC ECHOCARDIOGRAM (TTE) COMPLETE W/ CONTRAST (05/23/2024 8:56 AM EST) LV EDV (A2C) 145 mL CV PACS LV EDV (A4C) 122 mL CV PACS LV Diastolic Volume (BP) 139(A) 46 - 106 mL CV PACS LV ESV (A2C) 71 mL CV PACS LV ESV (A4C) 69 mL CV PACS LV Systolic Volume (BP) 72(A) 14 - 42 mL CV PACS IVSD 0.6 0.6 - 0.9 cm CV PACS LVIDD 5.5(A) 3.8 - 5.2 cm CV PACS LVIDS 3.8(A) 2.2 - 3.5 cm CV PACS LVOT Diameter 2.0 cm CV PACS LVPWD 0.8 0.6 - 0.9 cm CV PACS MV E' Tissue Velocity Lateral 14 cm/s CV PACS MV E' Tissue Velocity Septal 11 cm/s CV PACS Ejection Fraction (A2C) 51 % CV PACS Ejection Fraction (A4C) 43 % CV PACS Ejection Fraction (BP) 49 % CV PACS LVOT Area 3.1 cm2 CV PACS Left Atrium Minor Hixson 6.0 cm CV PACS Left Atrium Major Hixson 6.5 cm CV PACS LA Area Sys (A2C) 25 cm2 CV PACS LA Area Sys (A4C) 23 cm2 CV PACS LA Volume (BP) 76 mL CV PACS RA Area 14.3 cm2 CV PACS RA 2D Volume 30 mL CV PACS Aortic Sinus Valsalva 3.4 cm CV PACS Ascending Aorta 3.3 cm CV PACS MR PISA Nyquist Donell 39 cm/s CV PACS PISA MR Radius 0.90 cm CV PACS MR VTI 187.0 cm CV PACS MR PISA Max Velocity 5.7 m/s CV PACS MR Peak Gradient 131 mmHg CV PACS E Wave Deceleration Time 109(A) 119 - 242 ms CV PACS MV Peak E Donell 1.11 m/s CV PACS PISA MR EROA 0.34 cm2 CV PACS PISA Regurgitant Volume 64 mL CV PACS RV Diastolic Basal Dimension 2.9 2.5 - 4.1 cm CV PACS RV S' 14 cm/s CV PACS TAPSE 20 mm CV PACS LV ESV Index (A4C) 39 mL/m2 CV PACS LV EDV Index (A4C) 70 mL/m2 CV PACS E/E' Ratio Septal 10 CV PACS E/E' Ratio Averaged 9 CV PACS Relative Wall Thickness ratio 0.29 CV PACS FS 31 % CV PACS LV Mass 2D 135 g CV PACS Ascending Aorta Index 1.89 cm/m2 CV PACS RA 2D Volume Index 17 mL/m2 CV PACS LVIDD Index 3.14 cm/m2 CV PACS LVIDS Index 2.17 cm/m2 CV PACS E/E' Ratio Lateral 8 CV PACS LV Systolic Volume Index (BP) 41 mL/m2 CV PACS LV Diastolic Volume Index (BP) 79 mL/m2 CV PACS LA Volume Index (BP) 43 mL/m2 CV PACS LV Mass Index 2D 77 g/m2 CV PACS LV EDV Index (A2C) 83 mL/m2 CV PACS LV ESV Index (A2C) 41 mL/m2 CV PACS BSA 1.76 m2 CV PACS Est. RA Pressure 3 mmHg CV PACS Anatomical Region Laterality Modality Ultrasound Narrative 05/23/2024 10:08 AM EST ?Left ventricle cavity is mildly dilated. Left ventricular systolic function is mildly decreased with an ejection fraction of 40-45%. ?Regional LV wall motion abnormalities noted. See wall scoring diagram. Anterior and septal akinesis noted. ?Left ventricle wall thickness is normal. ?Right ventricle cavity is normal. Right ventricular systolic function is normal. ?Mitral valve demonstrates moderate regurgitation. ?See remainder of the report for additional findings. Left Ventricle Left ventricle cavity is mildly dilated. Wall thickness is normal. Systolic function is mildly decreased with an ejection fraction of 40-45%. There is akinesis in the mid to distal anterior and septal dockery. Left atrial pressure is inconclusive. Right Ventricle Right ventricle cavity appears normal. Systolic function is normal. Left Atrium Left atrium cavity is moderately dilated. Right Atrium Right atrium cavity is normal. IVC/SVC Inferior vena cava structure is normal. Mitral Valve The leaflets are mildly thickened. There is mild annular calcification. There is mild to moderate regurgitation. There is no evidence of mitral valve stenosis. Tricuspid Valve The leaflets exhibit normal excursion. There is trace regurgitation. There is no evidence of tricuspid valve stenosis. Aortic Valve The aortic valve is trileaflet. The leaflets are mildly thickened. There is trace regurgitation. There is no evidence of aortic valve stenosis. Pulmonic Valve Visualized portions of the pulmonic valve appear normal. There is no regurgitation or stenosis. Ascending Aorta The aorta appears normal in size. Pericardium Pericardium appears normal. There is no pericardial effusion. Study Details Overall the study quality was adequate. Definity contrast was given to enhance imaging. Wall Scoring Baseline Score Index: 1.59 The following segments are akinetic: mid anterior, mid anteroseptal, mid inferoseptal, apical anterior and apical septal. The following segments are hyperkinetic: basal anterior, basal anteroseptal, basal inferoseptal, basal inferior, basal inferolateral, basal anterolateral, mid inferior, mid inferolateral, mid anterolateral, apical inferior, apical lateral and apex. James Herron MD CV ECHO PROCEDURES * Lipid panel with reflex to direct LDL (05/23/2024 6:15 AM EST) Cholesterol 107 0 - 200 mg/dL LAB CHEMISTRY METHOD 05/23/2024 8:04 AM [facility] Triglycerides 117 0 - 150 mg/dL LAB CHEMISTRY METHOD 05/23/2024 8:04 AM [facility] HDL 54 >=40 mg/dL LAB CHEMISTRY METHOD 05/23/2024 8:04 AM [facility] LDL Calculated 30 0 - 100 mg/dL LAB CHEMISTRY METHOD 05/23/2024 8:04 AM [facility] VLDL Cholesterol Matthew 23.4 mg/dL LAB CHEMISTRY METHOD 05/23/2024 8:04 AM [facility] Non HDL Chol. (LDL+VLDL) 53 <145 mg/dL LAB CHEMISTRY METHOD 05/23/2024 8:04 AM [facility] Chol/HDL Ratio 2.0 0.0 - 4.4 LAB CHEMISTRY METHOD 05/23/2024 8:04 AM [facility] Blood Venous blood specimen / Unknown Venipuncture / Unknown 05/23/2024 6:15 AM EST 05/23/2024 7:15 AM EST Pedro Luis DEAN LAB BLOOD ORDERABLES [facility] [address] [place] [address], * Magnesium (05/23/2024 6:15 AM EST) Only the most recent of2 resultswithin the time period is included. Magnesium 2.5 1.9 - 2.6 mg/dL LAB CHEMISTRY METHOD 05/23/2024 8:05 AM EST [facility] Blood Venous blood specimen / Unknown Venipuncture / Unknown 05/23/2024 6:15 AM EST 05/23/2024 7:15 AM EST James Herron MD LAB BLOOD ORDERABLE S Performing Organization Address [facility] Co de Phone Number [facility] [address] [place] [address], * (ABNORMAL) Troponin I high sensitivity (05/22/2024 11:30 PM EST) Only the most recent of4 resultswithin the time period is included. Pathologist [facility] [place] High Sensitivity Troponin I 1,460(HH) <=54 ng/L LAB CHEMISTRY METHOD 05/23/2024 12:58 AM EST [facility] Blood Venous blood specimen / Unknown Venipuncture / Unknown 05/22/2024 11:30 PM EST 05/23/2024 12:18 AM EST Narrative [facility] - 05/23/2024 12:58 AM EST High levels of biotin in samples may falsely decrease hsTroponin values. ??Use caution when interpreting hsTroponin results in patients taking biotin who exhibit renal impairment (eGFR <60) or in patients taking more than 20 mg/day of biotin. James Herron MD LAB BLOOD ORDERABLE S Performing Organization Address [facility]/ZIP Co de Phone Number [facility] [address] [place] [address], [place] [phone] * (ABNORMAL) Procalcitonin (05/22/2024 10:01 PM EST) Pathologist [facility] [place] Procalcitonin 0.68(H) <=0.16 ng/mL LAB CHEMISTRY METHOD 05/23/2024 9:44 AM EST [facility] Blood Venous blood specimen / Unknown Venipuncture / Unknown 05/22/2024 10:01 PM EST 05/22/2024 10:29 PM EST Narrative [facility] - 05/23/2024 9:44 AM EST Procalcitonin > 2.00 ng/ml: Procalcitonin Levels above 2.00 ng/ml, on the first day of ICU admission represent a high risk for progression to severe sepsis and/or septic shock. Procalcitonin < 0.50 ng/ml: Procalcitonin levels below 0.50 ng/ml on the first day of ICU admission represent a low risk for progression to severe sepsis and/or septic shock. Concentrations <0.5 ng/mL do not exclude an infection, on account of local ized infections (without systemic signs) which can be associated with such low concentrations, or a systemic infection in its initial stages (<6 hours). Furthermore, increased procalcitonin can occur without infection. PCT concentrations between 0.5 and 2.0 ng/mL should be interpreted taking into account the patient's history. It is recommended to retest PCT within 6-24 hours if any concentrations <2.0 ng/mL are obtained. James Herron MD LAB BLOOD ORDERABLE S Performing Organization Address City/[facility]/ZIP Co de Phone Number [facility] [address] [place] [address], * Blood Culture, Peripheral Draw #1 (05/22/2024 10:01 PM EST) Culture, Blood No growth at 5 days 05/27/2024 11:01 PM EST [facility] Blood Venous blood specimen / Unknown Venipuncture / Unknown 05/22/2024 10:01 PM EST 05/22/2024 10:30 PM EST James Herron MD LAB MICROBIOLOGY - GENERAL ORDERABLES Performing Organization Address City/[facility]/ZIP Co de Phone Number [facility] [address] [place] [address], [place] [phone] * Phosphorus (05/22/2024 10:01 PM EST) Phosphorus 3.4 2.5 - 4.5 mg/dL LAB CHEMISTRY METHOD 05/22/2024 11:00 PM EST [facility] Blood Venous blood specimen / Unknown Venipuncture / Unknown 05/22/2024 10:01 PM EST 05/22/2024 10:29 PM EST James Herron MD LAB BLOOD ORDERABLE S Performing Organization Address City/[facility]/ZIP Co de Phone Number [facility] [address] [place] [address], [place] [phone] * Lactate (05/22/2024 10:01 PM EST) Only the most recent of2 resultswithin the time period is included. [facility] Lactate 1.7 0.4 - 2.0 mmol/L LAB CHEMISTRY METHOD 05/22/2024 10:59 PM EST [facility] Blood Venous blood specimen / Unknown Venipuncture / Unknown 05/22/2024 10:01 PM EST 05/22/2024 10:31 PM EST James Herron MD LAB BLOOD ORDERABLE S Performing Organization Address [facility] Co de Phone Number [facility] [address] [place] [address], [place] [phone] * (ABNORMAL) Hepatic function panel (05/22/2024 10:01 PM EST) [facility] Total Protein 6.6 6.0 - 8.0 g/dL LAB CHEMISTRY METHOD 05/22/2024 11:00 PM EST [facility] Albumin 3.2 3.2 - 5.0 g/dL LAB CHEMISTRY METHOD 05/22/2024 11:00 PM EST [facility] Total Bilirubin 0.6 0.0 - 1.4 mg/dL LAB CHEMISTRY METHOD 05/22/2024 11:00 PM EST [facility] Bilirubin, Direct 0.3 0.0 - 0.3 mg/dL LAB CHEMISTRY METHOD 05/22/2024 11:00 PM EST [facility] Bilirubin, Indirect 0.3 0.0 - 1.1 mg/dL LAB CHEMISTRY METHOD 05/22/2024 11:00 PM EST [facility] ALT (SGPT) 44 10 - 60 unit/L LAB CHEMISTRY METHOD 05/22/2024 11:00 PM EST [facility] AST (SGOT) 65(H) 10 - 42 unit/L LAB CHEMISTRY METHOD 05/22/2024 11:00 PM EST [facility] Alkaline Phosphatase 88 42 - 121 unit/L LAB CHEMISTRY METHOD 05/22/2024 11:00 PM EST [facility] Blood Venous blood specimen / Unknown Venipuncture / Unknown 05/22/2024 10:01 PM EST 05/22/2024 10:29 PM EST James Herron MD LAB BLOOD ORDERABLE S [facility] [address] [place] [address], * ECG 12 lead (05/22/2024 8:22 PM EST) Only the most recent of2 resultswithin the time period is included. Ventricular Rate ECG 68 BPM GEMUSE Atrial Rate 264 BPM GEMUSE QRS Duration 86 ms GEMUSE Q-T Interval 420 ms GEMUSE QTc 447 ms GEMUSE R Hixson 64 degrees GEMUSE T Hixson 101 degrees GEMUSE ECG Interpretation Atrial flutter with 4:1 A-V conduction Anteroseptal infarct (cited on or before 22-MAY-2024) Abnormal ECG When compared with ECG of 22-MAY-2024 13:48, No significant change was found Confirmed by MD Jaguar, James ([id number]) on 05/23/2024 2:44:22 PM GEMUSE 05/22/2024 8:22 PM EST 05/23/2024 2:44 PM EST Karen Rea PA ECG ORDERABLES GEMUSE * CT Abdomen Pelvis w Contrast (05/22/2024 6:14 PM EST) Anatomical Region Laterality Modality Body Computed Tomogra phy 05/22/2024 6:32 PM EST Impressions 05/22/2024 6:32 PM EST 1. No acute intra-abdominal or pelvic findings. No evidence of solid organ injury. 2. Chronic appearing wedge compression fractures of the L1 and T12 vertebral bodies. No adjacent soft tissue edema. There is mild retropulsion into the canal at the L1 level. Recommend comparison with prior imaging if available. 3. Bosniak category IIF cyst present on the right kidney measuring up to 8.7 cm. Recommend comparison with prior imaging. Recommend follow-up imaging in 6 months if no prior is available. 4. Cardiomegaly with coronary atherosclerosis. This document has been electronically signed by: Rm Elam MD on 05/22/2024 18:32:13 Narrative 05/22/2024 6:[address] abdomen and pelvis with IV contrast. COMPARISON: None FINDINGS: Minimal atelectasis along the lung bases. Cardiomegaly. Coronary calcifications present within the LAD and RCA. Cholecystectomy with associated dilatation of the common bile duct. Focal fatty infiltration along the falciform ligament. No evidence of acute hepatic injury. No evidence of acute splenic injury. No peripancreatic edema or evidence of pancreatic laceration. Normal adrenal glands. No evidence of acute renal injury. Left renal cystic lesion at the inferior pole measuring 2.2 cm. Lobulated right renal cystic lesion measuring in total 8.7 x 7.1 x 5.6 cm with internal septations. No hydronephrosis. No free intraperitoneal fluid or air. No bowel obstruction. Appendix is not seen. Moderate distal colonic diverticulosis without evidence of diverticulitis. No mesenteric or retroperitoneal lymphadenopathy. No evidence of abdominal aortic injury. Marked atherosclerotic plaque present along with nonaneurysmal abdominal aorta and branch vessels. Heavy calcified plaque present at the origins of the celiac trunk and SMA. No evidence of injury to the urinary bladder. No free fluid present within the pelvis. Dystrophic calcifications present along the uterus consistent with a fibroid uterus. No adnexal mass. Partially visualized left total hip arthroplasty. No evidence of hardware complication within the visualized portions. Visualized portions of the proximal femur appear intact. Advanced degenerative changes of the right hip. Bones of the pelvis appear intact. Normal vertebral body alignment. Chronic appearing wedge compression fracture of the L1 vertebral body with approximately 30 percent height loss. There is mild retropulsion into the canal at the L1 level. Chronic appearing superior endplate compression fracture of the T12 vertebral body with approximately 10 percent height loss. Moderate multilevel spondylosis. No lower rib fracture identified. Procedure Note Rm Elam MD - 05/22/2024 CT abdomen and pelvis with IV contrast. COMPARISON: None FINDINGS: Minimal atelectasis along the lung bases. Cardiomegaly. Coronary calcifications present within the LAD and RCA. Cholecystectomy with associated dilatation of the common bile duct.Focal fatty infiltration along the falciform ligament. No evidence of acute hepatic injury. No evidence of acute splenicinjury. No peripancreatic edema or evidence of pancreatic laceration. Normal adrenal glands. No evidence of acute renal injury. Left renal cystic lesion at the inferior pole measuring 2.2 cm. Lobulated right renal cystic lesion measuring in total 8.7 x 7.1 x 5.6 cm with internal septations. No hydronephrosis. No free intraperitoneal fluid or air. No bowel obstruction. Appendix is not seen. Moderate distal colonic diverticulosis without evidence of diverticulitis. No mesenteric or retroperitoneal lymphadenopathy. No evidence of abdominal aortic injury. Marked atherosclerotic plaque present along with nonaneurysmal abdominal aorta and branch vessels.Heavy calcified plaque present at the origins of the celiac trunk and SMA. No evidence of injury to the urinary bladder. No free fluid presentwithin the pelvis. Dystrophic calcifications present along the uterusconsistent with a fibroid uterus. No adnexal mass. Partially visualized left total hip arthroplasty. No evidence ofhardware complication within the visualized portions. Visualized portions of the proximal femur appear intact. Advanced degenerative changes of the right hip. Bones of the pelvis appear intact. Normal vertebral body alignment. Chronic appearing wedge compression fracture of the L1 vertebral bodywith approximately 30 percent height loss. There is mild retropulsion intothe canal at the L1 level. Chronic appearing superior endplate compression fracture of the T12 vertebral body with approximately 10 percent height loss. Moderate multilevel spondylosis. No lower rib fracture identified. IMPRESSION: 1. No acute intra-abdominal or pelvic findings. No evidence of solidorgan injury. 2. Chronic appearing wedge compression fractures of the L1 and T12 vertebral bodies. No adjacent soft tissue edema. There is mild retropulsion into the canal at the L1 level. Recommend comparison with prior imaging if available. 3. Bosniak category IIF cyst present on the right kidney measuring up to 8.7 cm. Recommend comparison with prior imaging. Recommend follow-up imaging in 6 months if no prior is available. 4. Cardiomegaly with coronary atherosclerosis. This document has been electronically signed by: Rm Elam MD on 05/22/2024 18:32:[address] PROCEDURES * (ABNORMAL) Urinalysis with reflex microscopic and culture (05/22/2024 5:15 PM EST) Specific [place] Urine 1.030 1.003 - 1.030 LAB URINALYSIS - AUTOMATED METHOD 05/22/2024 6:35 PM [facility] pH, Urine 5.5 5.0 - 8.0 pH LAB URINALYSIS - AUTOMATED METHOD 05/22/2024 6:35 PM [facility] Leukocytes, Urine Negative Negative LAB URINALYSIS - AUTOMATED METHOD 05/22/2024 6:35 PM [facility] Nitrite, Urine Negative Negative LAB URINALYSIS - AUTOMATED METHOD 05/22/2024 6:35 PM [facility] Protein, Urine 100(A) <=Trace mg/dL LAB URINALYSIS - AUTOMATED METHOD 05/22/2024 6:35 PM [facility] Glucose, Urine >=1000(A) Negative mg/dL LAB URINALYSIS - AUTOMATED METHOD 05/22/2024 6:35 PM [facility] Ketones, Urine 15(A) Negative mg/dL LAB URINALYSIS - AUTOMATED METHOD 05/22/2024 6:35 PM [facility] Urobilinogen , Urine 0.2 0.2 - 1.0 mg/dL LAB URINALYSIS - AUTOMATED METHOD 05/22/2024 6:35 PM [facility] Bilirubin, Urine Negative Negative LAB URINALYSIS - AUTOMATED METHOD 05/22/2024 6:35 PM [facility] Blood, Urine Large(A) Negative LAB URINALYSIS - AUTOMATED METHOD 05/22/2024 6:35 PM [facility] RBC, Urine 3.4 0 - 4 /HPF LAB URINALYSIS - AUTOMATED METHOD 05/22/2024 6:35 PM [facility] WBC, Urine 2.7 0 - 4 /HPF LAB URINALYSIS - AUTOMATED METHOD 05/22/2024 6:35 PM [facility] Squamous Epithelial, Urine >100(H) 0 - 60 /LPF LAB URINALYSIS - AUTOMATED METHOD 05/22/2024 6:35 PM [facility] Bacteria, Urine Few(A) Negative /HPF LAB URINALYSIS - AUTOMATED METHOD 05/22/2024 6:35 PM [facility] Hyaline Casts, Urine 1.7 0 - 3 /LPF LAB URINALYSIS - AUTOMATED METHOD 05/22/2024 6:35 PM [facility] Yeast, Urine Present(A) None /HPF LAB URINALYSIS - AUTOMATED METHOD 05/22/2024 6:35 PM [facility] Urine Urine specimen obtained by clean catch procedure / Unknown Non-blood Collection / Unknown 05/22/2024 5:15 PM EST 05/22/2024 6:04 PM EST Karen DEAN LAB URINE ORDERABLES [facility] [address] [place] [address], * Ty urine culture tube (05/22/2024 5:15 PM EST) Extra Tube Hold for add-ons. 05/22/2024 8:01 PM EST [facility] Comment:Auto resulted. Urine Urine specimen obtained by clean catch procedure / Unknown Non-blood Collection / Unknown 05/22/2024 5:15 PM EST 05/22/2024 6:04 PM EST Karen DEAN LAB URINE ORDERABLES Performing Organization Address City/[facility]/ZIP Co de Phone Number [facility] [address] [place] [address], [place] [phone] * (ABNORMAL) C-reactive protein (05/22/2024 4:05 PM EST) Pathologist [facility] [place] C-Reactive Protein 9.02(H) <=0.50 mg/dL LAB CHEMISTRY METHOD 05/22/2024 8:59 PM EST [facility] Blood Venous blood specimen / Unknown Venipuncture / Unknown 05/22/2024 4:05 PM EST 05/22/2024 4:17 PM EST James Herron MD LAB BLOOD ORDERABLE S Performing Organization Address [facility]/ZIP Co de Phone Number [facility] [address] [place] [address], [place] [phone] * (ABNORMAL) Cardiac Enzymes - CPK (05/22/2024 4:05 PM EST) Pathologist [facility] [place] Total CK 2,191(H) 22 - 269 unit/L LAB CHEMISTRY METHOD 05/22/2024 5:02 PM EST [facility] Comment:Results verified by repeat testing Blood Venous blood specimen / Unknown Venipuncture / Unknown 05/22/2024 4:05 PM EST 05/22/2024 4:17 PM EST Karen DEAN LAB BLOOD ORDERABLES Performing Organization Address City/[facility]/ZIP Co de Phone Number [facility] [address] [place] [address], [place] [phone] * CT Cervical Spine wo Contrast (05/22/2024 2:24 PM EST) Anatomical Region Laterality Modality Spine, C-spine Computed Tomogra phy 05/22/2024 2:51 PM EST Impressions 05/22/2024 2:58 PM EST No acute fracture or static subluxation of the cervical spine. Multilevel degenerative changes. ??Several spinal stenoses, most prominent at C5-6. -------- FINAL REPORT -------- Dictated By: Dung Lopez Dictated Date: 05/22/2024 14:51 ET Assigned Physician: Dung Lopez Reviewed and Electronically Signed By: Dung Lopez Signed Date: 05/22/2024 14:58 ET Workstation ID: [id number] Transcribed By: Self Edit Transcribed Date: 05/22/2024 14:51 ET Narrative 05/22/2024 2:[address] cervical spine, 05/22/2024. HISTORY: fall headstrike. TECHNIQUE: Noncontrast CT of the cervical spine with coronal and sagittal reformats. COMPARISON: None. Dose length product: Total for all concurrently acquired exams was ??1501 mGy- cm. FINDINGS: Multifocal atherosclerotic calcifications. ??Heterogeneous appearance of the thyroid gland with suggestion of multiple small nodules; the thyroid could be better evaluated with ultrasound. ??Paraspinous soft tissues are otherwise unremarkable. ??There is no prevertebral soft tissue swelling or CT evidence of an acute epidural hematoma. ??Visualized lung apices are difficult to evaluate due to motion but there is suggestion of biapical scarring. ??Limited views of the upper mediastinum are unremarkable. There is debris in both external auditory canals. ??Visible portions of the skull base are otherwise unremarkable. Reversal of the typical cervical lordosis centered at C4. ??Alignment is maintained. ??No fracture. ??Moderate diffuse degenerative changes of the vertebral endplates and facet joints. ??The C5-6 endplates are partially fused. ??There is mild degenerative spinal stenosis at C3-4 and C4-5. ??Moderate degenerative spinal stenosis at C5- 6. Procedure Note Dung Lopez MD - 05/22/2024 CT cervical spine, 05/22/2024. HISTORY: fall headstrike. TECHNIQUE: Noncontrast CT of the cervical spine with coronal and sagittalreformats. COMPARISON: None. Dose length product: Total for all concurrently acquired exams was 1501mGy-cm. FINDINGS: Multifocal atherosclerotic calcifications. Heterogeneous appearance ofthe thyroid gland with suggestion of multiple small nodules; the thyroidcould be better evaluated with ultrasound. Paraspinous soft tissues areotherwise unremarkable. There is no prevertebral soft tissue swelling orCT evidence of an acute epidural hematoma. Visualized lung apices aredifficult to evaluate due to motion but there is suggestion of biapicalscarring. Limited views of the upper mediastinum are unremarkable. There is debris in both external auditory canals. Visible portions of theskull base are otherwise unremarkable. Reversal of the typical cervical lordosis centered at C4. Alignment ismaintained. No fracture. Moderate diffuse degenerative changes of thevertebral endplates and facet joints. The C5-6 endplates are partiallyfused. There is mild degenerative spinal stenosis at C3-4 and C4-5.Moderate degenerative spinal stenosis at C5-6. IMPRESSION: No acute fracture or static subluxation of the cervical spine. Multilevel degenerative changes. Several spinal stenoses, most prominentat C5-6. -------- FINAL REPORT -------- Dictated By: Dung Lopez Dictated Date: 05/22/2024 14:51 ET Assigned Physician: Dung Lopez Reviewed and Electronically Signed By: Dung Lopez Signed Date: 05/22/2024 14:58 ET Workstation ID: [id number] Transcribed By: Self Edit Transcribed Date: 05/22/2024 14:[address] PROCEDURES * CT Head wo Contrast (05/22/2024 2:24 PM EST) Anatomical Region Laterality Modality Head and Neck Computed Tomogra phy 05/22/2024 2:31 PM EST Impressions 05/22/2024 2:35 PM EST No acute intracranial findings. -------- FINAL REPORT -------- Dictated By: Dung Lopez Dictated Date: 05/22/2024 14:31 ET Assigned Physician: Dung Lopez Reviewed and Electronically Signed By: Dung Lopez Signed Date: 05/22/2024 14:35 ET Workstation ID: [id number] Transcribed By: Self Edit Transcribed Date: 05/22/2024 14:31 ET Narrative 05/22/2024 2:[address] dated 05/22/2024. HISTORY: fall, headstrike, on thinners. COMPARISON: None. TECHNIQUE: Noncontrast head CT with coronal and sagittal reformats. Dose length product: ??Total for all concurrently acquired exams was 1501 mGy- cm. FINDINGS: Brain: No hemorrhage, edema, mass, or extra-axial fluid collection. ??No CT evidence of an acute large vessel infarct. ??Ventricles and sulci are age commensurate. ??Atherosclerotic calcifications of the vertebral arteries and carotid siphons. ??There is a small area of encephalomalacia in the periventricular white matter adjacent to the anterior horn of the right lateral ventricle, likely sequela of a previous small vessel infarct. Sinuses/mastoids: The left anterior clinoid is pneumatized and communicates with the sphenoid sinus. Orbits: Normal. Calvarium: Normal. Other: The skull base soft tissues are normal. ??Debris in the EACs. ??Degenerative changes of the temporomandibular joints. Procedure Note Dung Lopez MD - 05/22/[address] dated 05/22/2024. HISTORY: fall, headstrike, on thinners. COMPARISON: None. TECHNIQUE: Noncontrast head CT with coronal and sagittal reformats. Dose length product: Total for all concurrently acquired exams was 1501mGy-cm. FINDINGS: Brain: No hemorrhage, edema, mass, or extra-axial fluid collection. No CTevidence of an acute large vessel infarct. Ventricles and sulci are agecommensurate. Atherosclerotic calcifications of the vertebral arteriesand carotid siphons. There is a small area of encephalomalacia in theperiventricular white matter adjacent to the anterior horn of the rightlateral ventricle, likely sequela of a previous small vessel infarct. Sinuses/mastoids: The left anterior clinoid is pneumatized andcommunicates with the sphenoid sinus. Orbits: Normal. Calvarium: Normal. Other: The skull base soft tissues are normal. Debris in the EACs.Degenerative changes of the temporomandibular joints. IMPRESSION: No acute intracranial findings. -------- FINAL REPORT -------- Dictated By: Dung Lopez Dictated Date: 05/22/2024 14:31 ET Assigned Physician: Dung Lopez Reviewed and Electronically Signed By: Dung Lopez Signed Date: 05/22/2024 14:35 ET Workstation ID: [id number] Transcribed By: Self Edit Transcribed Date: 05/22/2024 14:31 ET Karen DEAN IMG CT PROCEDURES * (ABNORMAL) Manual differential (05/22/2024 1:05 PM EST) Neutrophils % 83.0 % LAB HEMETOLOGY METHOD 05/22/2024 1:59 PM [facility] Bands % 2.0 % LAB HEMETOLOGY METHOD 05/22/2024 1:59 PM [facility] Lymphocytes % 6.0 % LAB HEMETOLOGY METHOD 05/22/2024 1:59 PM [facility] Monocytes % 10.0 % LAB HEMETOLOGY METHOD 05/22/2024 1:59 PM [facility] Eosinophils % 0.0 % LAB HEMETOLOGY METHOD 05/22/2024 1:59 PM [facility] Basophils % 0.0 % LAB HEMETOLOGY METHOD 05/22/2024 1:59 PM [facility] Neutrophils Absolute Manual 17.26(H) 1.50 - 7.00 K/mcL LAB HEMETOLOGY METHOD 05/22/2024 1:59 PM [facility] Bands Absolute Manual 0.42(H) 0.00 - 0.00 K/mcL LAB HEMETOLOGY METHOD 05/22/2024 1:59 PM EST [facility] Lymphocytes Absolute 1.25 1.00 - 5.00 K/[facility] LAB HEMETOLOGY METHOD 05/22/2024 1:59 PM EST [facility] Monocytes Absolute Manual 2.08(H) 0.20 - 1.00 K/[facility] LAB HEMETOLOGY METHOD 05/22/2024 1:59 PM EST [facility] Eosinophils Absolute Manual 0.00 0.00 - 0.50 K/[facility] LAB HEMETOLOGY METHOD 05/22/2024 1:59 PM EST [facility] Basophils Absolute Manual 0.00 0.00 - 0.20 K/[facility] LAB HEMETOLOGY METHOD 05/22/2024 1:59 PM EST [facility] Rbc Morphology Consistent with indices Consistent with indices, Normal for Ruby LAB HEMETOLOGY METHOD 05/22/2024 1:59 PM EST [facility] Platelet Morphology - WAM See Note(A) Normal LAB HEMETOLOGY METHOD 05/22/2024 1:59 PM EST [facility] Comment:PLT: Normal Blood Venous blood specimen / Unknown Venipuncture / Unknown 05/22/2024 1:05 PM EST 05/22/2024 1:11 PM EST Karen DEAN LAB BLOOD ORDERABLES [facility] [address] [place] [address], * (ABNORMAL) Hemoglobin A1c (05/22/2024 1:05 PM EST) Hemoglobin A1C 7.7(H) <6.5 % LAB CHEMISTRY METHOD 05/23/2024 11:39 AM EST [facility] Mean Bld Glu Estim. 174 mg/dL LAB CHEMISTRY METHOD 05/23/2024 11:39 AM EST [facility] Blood Venous blood specimen / Unknown Venipuncture / Unknown 05/22/2024 1:05 PM EST 05/22/2024 1:11 PM EST Pedro Luis DEAN LAB BLOOD ORDERABLES GUERO COREA [place] ([facility]) [facility] [address] [place] [address], * [place] CRITICAL CARE 30-74 MINUTES (05/22/2024 12:11 PM EST) Narrative Kj Shoemaker MD - 05/22/2024 12:11 PM EST DIANNE Booth ? 05/23/2024 11:17 AM Critical Care Performed by: DIANNE Booth Authorized by: Kj Shoemaker MD ?? Critical care provider statement: ??Critical care time (minutes): ??60 ??Critical care was time spent personally by me on the following activities: ??Development of treatment plan with patient or surrogate, discussions with consultants, examination of patient, obtaining history from patient or surrogate, ordering and review of radiographic studies, ordering and review of laboratory studies, ordering and performing treatments and interventions, re-evaluation of patient's condition and review of old charts ??Care discussed with: admitting provider ?? Kj Shoemaker MD IN CLINIC/BEDSIDE OR DERABLES * ECG-Annotated (05/22/2024) Provider Onbase ECG ORDERABLES from Last 3 Months Advance Directives * Full Code - Default (Latest Code Status on File) Date Activated Date Inactivated Comments 05/22/2024 8:50 PM 05/24/2024 6:28 PM This is orde r is used when code status has not been discussed with the patient, or code status is otherwise unknown/unconfirmed To update the patient's code status, place a code status order. Do not modify or discontinue any currently active code status orders. Care Teams Dust Collector Treater Relationship Specialty Start Date End Date Physician, Pcp Unknown PCP - General 05/22/24
--- OUTSIDE RECORDS SUMMARY | 2024-07-10 11:52 | XMS_ITS | Patient Health Record ---
Author Organization [facility] Address [address] [place] [address] Care Team Providers Care Dental Assisting Instructor Name Role Phone Po Nayan AKHTAR Primary Care Provider Alvaro Grimes Unavailable [phone] REASON FOR REFERRAL No Information MEDICATIONS Medication SIG (Take, Route, Frequency, Duration) Notes Start Date End Date Status Cholestyramine Light 4 GM/DOSE TAKE 1 SCOOP ORALLY ONCE TO TWICE DAILY FOR DIARRHEA (MIX IN 2 TO 4 OUNCES OF BEVERAGE). for 21 Active Simvastatin 40 MG TAKE ONE TABLET BY M OUTH EVERY DAY Oral for 90 Active Sertraline HCl 50 MG TAKE ONE TABLET BY MOUTH EVERY DAY Oral for 30 Active Fenofibrate 160 MG TAKE 1 TABLET BY LUDMILA TH ONCE A DAY (WITH A MEAL) Oral for 30 Active clonazePAM 1 MG (Schedule IV Drug) T ISIDRO 1 TABLET BY MOUTH TWICE DAILY NEEDED FOR ANXIETY Oral for 30 Active metFORMIN HCl 500 MG TAKE TWO TABLETS BY MOUTH EVERY MORNING AND 1 TABLET IN THE EVENING BY MOUTH TWICE DAILY Oral for 30 Active hydrOXYzine HCl 25 MG TAKE ONE TABLET BY MOUTH TWICE A DAY NEEDED Oral for 30 Active Folic Acid 1 MG TAKE ONE TABLET BY M OUTH EVERY DAY Oral for 30 Active Lisinopril 20 MG TAKE 1 TABLET BY LUDMILA TH ONCE A DAY Oral for 30 Active Vitamin D3 25 MCG (1000 UT) TAKE 1 TABLE T BY MOUTH ONCE A DAY.. Oral for 90 Active chlorproMAZINE HCl 50 MG TAKE ONE TABLET BY MOUTH AT BEDTIME Oral for 30 Active Dicyclomine HCl 10 MG 1-2 capsules Orall y Four times a day prn abdominal pain/discomfort for 30 day(s) 09/28/2018 Active glipiZIDE 5 MG TAKE 1 TABLET DAILY Oral for 30 Active Aspirin 81 81 MG 1 tablet Orally Once a day for 30 day(s) Active Dicyclomine HCl 10 MG 1-2 capsules Orall y Four times a day prn abdominal discomfort/bloating/cram ps for 30 day(s) 02/04/2018 Active Dicyclomine HCl 10 MG 1-2 capsules Orall y Four times a day prn abdominal cramps/discomfort/bloati ng for 30 day(s) 03/18/2018 Active Cholestyramine 4 GM/DOSE 1/2 to 1 scoop mixed in water or OJ Orally QD-BID for diarrhea for 30 day(s) Active IMMUNIZATIONS Vaccine Route Administration Date Status Comme nts Influenza Unknown 11/27/2019 Refused SOCIAL HISTORY Tobacco Use: Social History Observation Description Date Details (start date - stop date) Current Smoker NA - NA Sex Assigned At : Social History Observation Description Sex Assigned At Unknown Tobacco Use/Smoking Question Answer Notes Patient is a current smoker How often do you smoke cigarettes? every day How many cigarettes a day do you smoke? 5 or les s Alcohol Screen Question Answer Notes Did you have a drink contain ing alcohol in the past year? Yes How often did you have a dri nk containing alcohol in the past year? Monthly or less (1 point) How many drinks did you have on a typical day when you were drinking in the past year? 1 or 2 drinks (0 point) How often did you have 6 or more drinks on one occasion in the past year? Never (0 point) Points 1 Interpretation Negative PROBLEMS Problem Type ICD Code Onset Dates Problem Status W/U Status Risk SNOMED Code Notes Problem Diarrhea, unspecified type (R19.7) Active confirmed 97576582 Problem Change in bowel function (R19.4) Active confirmed 789671524 Problem Encounter for screening for malignant neoplasm of colon (Z12.11) Active confirmed [id number] PLAN OF TREATMENT Future Test Test Name Order Date COLONOSCOPY 12/08/2016 Insurance Providers Payer Name Payer Address Payer Phone Subscriber Number Group Number Insured Name Patient Relationship to Insured Coverage Start Date Coverage End Date [facility] [address] [facility] [phone] [id number] ROSA DIAZ Self - patient is the insured MEDICAL (GENERAL) HISTORY Medical History History ICD Code Screening colonoscopy 2005--neg. except fpor hyperplastic polyps, diverticulosis, and internal hemorroids NIDDM Hypertension Hyperlipidemia Anxiety She describes a heart block on her EKG Denies SD, CVA,Lung disease,renal diseas e Osteoarthosis Neg. colonoscopy in 12/2016. Biopsies neg for microscopic colitis Neg. labs for celiac disease in 2017. Diarrhea--much better on the cholestyram ine Surgical History Surgery Date(Month/Year) Breast reduction Left hip replacement approx 2010 [facility]
--- OUTSIDE RECORDS SUMMARY | 2024-07-10 11:52 | XMS_ITS | Clinical Summary ---
Author Organization [facility] Address [address] [address] Care Team Providers Care Bailer Operators Supervisor Name Role Phone Nayan Pavon MD Primary Care Provider [phone] Social History Tobacco Use Types Packs/Day Years Used Date Smoking Tobacco: Never Assessed Comments Unknown Sex and Gender Information Value Date Recorded Sex Assigned at Not on file Legal Sex Female 7:57 AM EST Gender Identity Not on file Sexual Orientation Not on file Plan of Treatment Health Maintenance Due Date Last Done Comments Hepatitis B Vaccine (1 of 5 - Risk Dialysis 4-dose series) 1965 Pneumococcal Vaccine: 65+ Years (1 of 1 - PCV) 011 Influenza Vaccine (#1) 2024 Insurance [facility] Care Teams Bailer Operators Supervisor Relationship Specialty Start Date End Date Nayan Pavon MD [facility] [address] [place], [place] PCP - General Internal Medicine 06/30/22
--- OUTSIDE RECORDS SUMMARY | 2024-07-10 11:53 | XMS_ITS ---
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 with home health services [facility] 3 07:44 pm EST - 3 11:46 am EST Immunizations Vaccine Date Influenza 05/24/2022 12:00 am EST TB 1 Step Mantoux (PPD) 07/15/2022 08:15 pm EST PPSV23 (Previous Pneumococcal Polysaccha ride)Vaccine 11/09/2021 12:00 am EDT Tdap (Tetanus, Diphtheria, Pertussis) 12:00 am EDT Moderna Covid-19 Booster (SARS-COV-2) va ccine 11/02/2021 12:00 am EDT Migel-Migel Single Dose Vaccine Covi d-19/SARS-COV-2 09/17/2020 12:00 am EDT [employer] Covid-19 Bi-valent Solut ion 05/10/2022 12:00 am EST Social History
[2024-07-10 12:25] LABS: Basophils Absolute Auto 0.1 X10*3/uL (0.0-0.2); Basophils Percent Auto 0.6 % (0-2); Eosinophils Absolute Auto 0.4 X10*3/uL (0.0-0.4); Eosinophils Percent Auto 4.2 % (0-4); Hematocrit 36.2 % (37.0-47.0); Hemoglobin 11.7 g/dl (12.0-16.0); Imm Gran Abs Auto 0.03 X10*3/uL (0.00-0.03); Imm Gran Pct Auto 0.3 % (0.0-0.4); Lymphocytes Absolute Auto 2.7 X10*3/uL (1.2-4.9); Lymphocytes Percent Auto 27.8 % (20-40); Mean Corpuscular HGB Conc 32.3 g/dl (31.0-35.0); Mean Corpuscular Hemoglobin 26.6 pg (27.0-33.0); Mean Corpuscular Volume 82.3 fL (80.0-98.0); Mean Platelet Volume 9.7 fL (9.4-12.3); Monocytes Absolute Auto 0.5 X10*3/uL (0.1-1.2); Monocytes Percent Auto 5.7 % (2-11); Neutrophils Absolute Auto 5.9 x10*3/uL (2.0-8.3); Neutrophils Percent Auto 61.4 % (45-73); Platelet Count 349 X10*3/uL (160-400); Red Cell Distribution Width 14.5 % (11.0-16.0); White Blood Count 9.5 X10*3/uL (4.8-10.8)
[2024-07-10 12:31] LABS: INTERNATIONAL NORM RATIO 1.1 (0.9-1.1); Prothrombin Time 12.7 SEC (10.9-12.4)
[2024-07-10 13:17] LABS: Anion Gap 13 (12-20); Blood Urea Nitrogen 16 mg/dL (9-16); Calcium 9.4 mg/dL (8.4-10.2); Carbon Dioxide 22 mmol/L (22-29); Chloride 107 mmol/L (96-108); Estimated Glomerular Filt Rate > 60; Glucose Random 184 mg/dL (60-115); Potassium 4.4 mmol/L (3.3-5.1); Sodium 138 mmol/L (135-145)
== END 2024-07-10 10:38 | disposition home or self-care (01) ==
LOC: HO.LAB 10:37
PROVIDERS: PCP Internal Medicine; Visit Provider Nurse Practitioner Family
DX: R94.39 Abnormal result of other cardiovascular function study (principal)
CPT/HCPCS: 36415; 80048; 85025; 85610

== ENCOUNTER → 2024-07-18 23:59 | Outpatient (BNV) | payer MEDICARE, SELFPAY | PROVIDERS: PCP Internal Medicine; Visit Provider Internal Medicine Cardiovascular Disease | DX: I20.89 Other forms of angina pectoris (principal) | CPT/HCPCS: 92978; 93458; 93571; 99152 ==

== ENCOUNTER → 2024-07-23 13:34 | Outpatient (BNV) | payer MEDICARE, SELFPAY | PROVIDERS: PCP Internal Medicine; Visit Provider Internal Medicine | DX: I48.92 Unspecified atrial flutter (principal) | CPT/HCPCS: 93244; 93306 ==

== ENCOUNTER 2024-08-02 12:51 | Outpatient (AMB) | payer MEDICARE, SELFPAY ==
--- NOTE | 2024-08-02 12:56 | A.OFFVIS_ITS ---
Vital Signs 08/02/24 12:57 Height 5 ft 5 in Weight 148 lb BMI 24.6 BP 120/62 Blood Pressure Location Lt brachial Position Sitting Pulse 68 Pulse Source Pulse Oximeter Intake Visit Reasons: Follow up post cardiac cath Allergies dapagliflozin [From [facility]] Adverse Reaction (Intermediate, Verified 03/18/24 11:24) Diarrhea Medication List - Last Reconciled 08/02/24 by ERLIN Ernandez acetaminophen 650 mg (2 x 325 mg) PO Q6H PRN apixaban (Eliquis) 5 mg PO BID blood sugar diagnostic (FreeStyle Test strips) Use 1 test strip once a day chlorpromazine 50 mg PO BEDTIME cholecalciferol (vitamin D3) 25 mcg PO DAILY cholestyramine-aspartame 4 gram (Cholestyramine Light) 1 ea PO DAILY clonazepam 1/2 tab in am and 1 tab in pm orally; cyanocobalamin (vitamin B-12) (Vitamin B-12) 1,000 mcg PO DAILY 90 days folic acid 1 mg PO DAILY lancets (FreeStyle Lancets) As directed check BS QD melatonin 6 mg (2 x 3 mg) PO BEDTIME PRN metformin 1,000 mg PO BIDWMEAL metoprolol succinate ER 25 mg PO DAILY sertraline 100 mg PO DAILY simvastatin 40 mg PO DAILY 90 days sitagliptin phosphate (Januvia) 100 mg PO DAILY HPI HPI Follow up post cardiac cath: Details: Jennifer is a 79-year-old female past medical history of hypertension, hyperlipidemia, diabetes, obesity, smoking, quit 06/2023, atrial flutter, NSTEMI 06/2022, abnormal nuclear stress test who recently underwent a cardiac catheterization and now presents for follow-up. Today she reports that she has not been taking Eliquis for the last 2 weeks due to the high co-pay. She says the medication is ready at the pharmacy but she did not pick it up. She still gets random sharp pains in her chest periodically. She has no pain brought on by walking. She is mostly sedentary and ambulates only short distances with a wheeling walker. Her activity is limited by bilateral knee pain/arthritis. No shortness of breath, PND,orthopnea or edema. No palpitations, lightheadedness, presyncope, syncope, falls. Right radial catheterization site has a marble-sized nodule. Right hand is feeling normal. She is taking her meds as directed. No bleeding issues reported. PENDING SALE TO [facility] Medical History (Updated 08/02/24 @ 16:39 by Renetta Crawford NP-C) Preoperative cardiovascular examination Hypertension History of CVA (cerebrovascular accident) Adjustment disorder with depressed mood Hyponatremia Atherosclerotic cardiovascular disease Atrial flutter Preop exam for internal medicine Impacted cerumen of both ears Annual physical exam Frequency of micturition Generalized anxiety disorder Obesity (BMI 30.0-34.9) Annual physical exam Primary osteoarthritis of left knee Second degree AV block Overweight (BMI 25.0-29.9) Insomnia Tobacco abuse Hypercholesterolemia Osteoarthrosis Type 2 diabetes mellitus with hyperglycemia Surgical History (Updated 08/02/24 @ 16:40 by Renetta Crawford NP-C) History of tonsillectomy History of cholecystectomy H/O breast reconstruction History of hip replacement Family History Father Cancer Mother Medical history unknown Brother Liver cancer Sister Hypertension COPD (chronic obstructive pulmonary disease) Social History Household Members: None Housing: Apartment Do you presently have visiting nurse or other home services: No Alcohol intake: never Patient Tobacco Use Status: Former Tobacco user Tobacco use type: Cigarette Cigarettes Per Day: 2 e-Cigarette/Vaping Use: Never Used Second Hand Smoke Exposure: No Advance Directives Date on File: 10/07/22 service: No Current occupational status: retired Current occupation: Right Handed Cognitive needs: Yes (walker, Cane, Wheelchair) Hearing needs: No Vision needs: Yes (Glasses) Review of Systems Const All systems reviewed & are unremarkable except as noted in HPI and below Denies weakness ENT Denies dizziness Card Denies chest pain, Denies chest pain with activity, Denies syncope, Denies rapid heart rate, Denies pedal edema, Denies edema, Denies leg edema, Denies lightheadedness, Denies palpitations, Denies dyspnea, Denies dyspnea on exertion and Denies orthopnea Resp Denies cough, Denies dyspnea and Denies dyspnea on exertion GI Denies hematochezia and Denies change in stool character Musc Details: uses walker - Lump at right radial cath site Reports abnormal gait, Denies muscle cramps, Reports muscle weakness, Denies n umbness, Denies radiating pain into limb and Denies tingling Neuro Reports abnormal gait, Denies dizziness, Denies syncope, Denies numbness, Denies tingling and Denies weakness Endo Denies palpitations Physical Exam Const Other: flat affect, frail General: cooperative, comfortable and no acute distress Orientation/consciousness: patient oriented x3 Neck Neck: Yes normal visual inspection and Yes no JVD Resp Effort & Inspection: normal respiratory effort Auscultation: clear to auscultation bilaterally, no crackles, no rales, no rhonchi and no wheezes Cardio Jugular venous distension: no JVD Rate: regular rate Rhythm: regular rhythm Heart sounds: S1 normal heart sound present, S2 normal heart sound present, no gallops, no murmurs and no rubs GI Inspection: Yes normal to inspection Skin General skin exam: no rashes or lesions noted Neuro General: patient oriented x3 Extrem Other: right radial cath site with marble size pulsating nodule, no bruit over site, right hand assessment normal. General: Yes normal to inspection, No no pedal edema and No calf tenderness Psych Appearance: grossly normal Mental Status: mental status grossly normal Speech and movement: Normal speech and movement present Assessment & Plan Assessment & Plan (1) Atherosclerotic cardiovascular disease: Code(s): I25.10 - Atherosclerotic heart disease of [place] coronary artery without angina pectoris Category: Medical Plan: NSTEMI 06/2022. Echocardiogram done at that time showed EF 60-65%, wall motion abnormality in the mid to distal LAD territory. Nuclear stress test done 07/06/2022 showed mixed infarct/ischemia in the mid to distal inferior lateral wall. On a follow-up visit cardiac catheterization was discussed and she declined. At this time she is now preop for a knee replacement. She gets atypical chest discomfort. Her activity level is less than 4 Mets. EKG done today shows atrial flutter with variable AV block, 1 PVC, rate 65. She has multiple cardiac risk factors including hypertension, hyperlipidemia, diabetes, prior smoking, obesity. Informed her that in order to clear her for surgery she will need a cardiac catheterization for further evaluation. She agreed with and proceeded to have cardiac catheterization on 07/18/2024 showing left main 55% stenosis, no significant disease elsewhere. Echocardiogram done 07/23/2024 showed EF 66%, basal inferior and basal inferior lateral akinetic. Today she again denies exertional chest discomfort. The need for strict risk factor modification was reviewed. She is not on aspirin as she should be on Eliquis but tells me she has not been taking it for the last 2 weeks due to the high cost. She is on simvastatin with ideal LDL goal less than 70. Labs done 02/24/2024 showed LDL 33. She is on metoprolol. Signs and symptoms of angina reviewed with her. Emergency care if ever needed for symptoms. (2) S/P cardiac cath: Comment: 07/18/2024, left main 55% stenosis, IFR 0.95, lad mild irregularities, left circumflex minimal irregularities, RCA normal. 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 Right hand assessment normal. No bruit audible over nodule. I sent her for stat ultrasound of the radial artery to assess for pseudoaneurysm. Radiology confirms finding of pseudoaneurysm. Spoke with Dr. Salinas. He is able to see/treat patient in his office on Monday. Monday is a holiday. Patient informed of this via phone call after she left the hospital. Instructed to be very cautious of the site and do no heavy lifting or manipulation of the area. Emergency care if she does have bleeding. (4) Atrial flutter: Code(s): I48.92 - Unspecified atrial flutter Category: Medical Plan: History of atrial flutter. Unknown to me if this is persistent or paroxysmal. Last sinus EKG I see is 09/24/2022. EKG last visit shows atrial flutter with variable AV block, rate 65. Pulse today 68. Will have her continue on metoprolol. Continue Eliquis for anticoagulation. Her Eliquis dose was at 2.5 mg b.i.d.. On last visit I increased her dose to 5 mg b.i.d. which is the appropriate dose for her current age, weight and creatinine. I do see in the past she had JHONNY wiith creatinine as high as 6.58. Her creatinine levels have been normal since 09/2022. She was concerned about the high co-pay for Eliquis. I called her pharmacy and they state she has a 1 time co-pay of 350 dollars that is due at the beginning of each year and then her Eliquis co-pay is 47 dollars a month. I left this information on her phone machine after she left the office. Instructed to restart Eliquis as soon as possible. When in the office I discuss the risk of stroke by not taking her anticoagulation and she states understanding. (5) History of non-ST elevation myocardial infarction (NSTEMI): Code(s): I25.2 - Old myocardial infarction Category: Medical Plan: As above (6) Hypercholesterolemia: Code(s): E78.00 - Pure hypercholesterolemia, unspecified Category: Medical Plan: LDL goal less than 70. LDL is well controlled. Continue simvastatin. (7) Osteoarthritis of left knee: Code(s): M17.12 - Unilateral primary osteoarthritis, left knee Category: Medical Plan: Following with Dr. Paul (8) Osteoarthritis of right knee: Code(s): M17.11 - Unilateral primary osteoarthritis, right knee Category: Medical Plan: Following with Dr. Paul (9) Preoperative cardiovascular examination: Code(s): Z01.810 - Encounter for preprocedural cardiovascular examination Category: Medical Plan: Preop for total knee replacement Dr. Paul. Patient believes she is having her left done but tells me she has equal pain in both. No date yet. Recent cardiac catheterization showing moderate left main stenosis. Dr Steele addressed cardiac risk on catheterization report stating that she can proceed with her surgery with an intermediate to high risk for perioperative complications. I did discuss this with patient and she is understanding. I told her it would be up to the surgeon and anesthesia to decide if they are going to proceed. - if she is having surgery then she will need to hold Eliquis 3-4 days prior to her procedure and restart as soon as cleared by surgeon to do so. Continue metoprolol and simvastatin. Note: She is on Januvia which will need to be held per protocol. Call/consult Cardiology if needed. (10) Hypertension: Code(s): I10 - Essential (primary) hypertension Category: Medical Qualifiers: Hypertension type: essential hypertension Qualified Code(s): I10 - Essential (primary) hypertension Plan: Well controlled at this time. (11) Abnormal nuclear stress test: Code(s): R94.39 - Abnormal result of other cardiovascular function study Category: Medical Plan: As above Plan Time spent on chart review, documentation, interview and assessment Orders: Orders US arterial duplex UE RT Today R09.89 - Other specified symptoms and signs involving the circulatory and respiratory systems, Z98.890 - Other specified postprocedural states Coding Level of Care Code Est Pt Level 5 (68392) Complex EM visit Add On G2211 Diagnoses Atherosclerotic cardiovascular disease I25.10 S/P cardiac cath Z98.890 Pseudoaneurysm I72.9 Atrial flutter I48.92 History of non-ST elevation myocardial infarction (NSTEMI) I25.2 Hypercholesterolemia E78.00 Osteoarthritis of left knee M17.12 Osteoarthritis of right knee M17.11 Preoperative cardiovascular examination Z01.810 Essential hypertension I10 Hypertension type: essential hypertension Abnormal nuclear stress test R94.39 Time Spent (min) 45 Comment Complex case, involving outside providers, documentation, assessment, chart review.
[2024-08-02 12:57] VITALS: BP 120/62; PULSE 68; BMI 24.6
--- OUTSIDE RECORDS SUMMARY | 2024-08-02 13:14 | XMS_ITS | Clinical Summary ---
Author Organization [facility] Address [address] [address] Care Team Providers Care Journeyman Sheet Metal Worker Name Role Phone Nayan Pavon MD Primary Care Provider [phone] Social History Tobacco Use Types Packs/Day Years [...] PCV) 011 Influenza Vaccine (#1) 2024 Insurance [facility] Care Teams Journeyman Sheet Metal Worker Relationship Specialty Start Date End Date Nayan Pavon MD [facility] [place] [address] [place], [place] PCP - General Internal Medicine 06/30/22
--- OUTSIDE RECORDS SUMMARY | 2024-08-02 13:14 | XMS_ITS | Patient Health Record ---
Author Organization [facility] Address [address] [place] [address] Care Team Providers Care Interior Design Faculty Member Name Role Phone Nayan Pavon Primary Care Provider Eileen Ruth [phone] Reason For Referral No Information Encounters Encounter Location Date Provider Diagnosis [facility] [address] [place] [address] 12/06/2023 Eileen Yi [facility] [address] [place] [address] 12/12/2023 Eileen Yi Plan Of Treatment No Information Insurance Providers Payer Name Payer Address Payer Phone Subscriber Number Group Number Insured Name Patient Relationship to Insured Coverage Start Date Coverage End Date [facility] [address] [place] [address] [phone] [id number] Jennifer Balderas Self - patient is the insured
--- OUTSIDE RECORDS SUMMARY | 2024-08-02 13:15 | XMS_ITS ---
Author Organization [facility] Address [address] [place] [address] Care Team Providers Care Coating Mixer Name Role Phone Nayan Pavon Primary Care Provider UnavailEileen Madsen [phone] Encounters Encounter Location Date Provider Diagnosis [facility] [address] [place] [address] 03/18/2024 Eileen Yi Plan Of Treatment No Information Progress Notes * Jennifer BALDERASDOB:1944 (79 yo F)Acc No.[id number]:03/18/2024 Progress Notes Patient:?Jennifer BALDERAS Provider:?Eileen Yi DPM :1945???Age:79 Y???Sex:Female D ate:03/18/2024 Address:[address] [place], [place] [id number] Pcp:Nayan Pavon Subjective: * Chief Complaints: * ??? * Medical History:? Objective: * Vitals:? Assessment: Plan: * Treatment: * Images: * The named appointment provid er may or may not be the originator of this progress note, and it is not deemed complete until electronically signed by the appointment provider. Sign off status: Pending * Provider:?Eileen Yi DPM Date:?2023 Generated for Violette bishop/Nan/Isabelleitting on:?08/02/2024 01:15 PM EST
--- OUTSIDE RECORDS SUMMARY | 2024-08-02 13:15 | XMS_ITS ---
Author Organization [facility] Address [address] [place] [address] Care Team Providers Care Soil Scientist Name Role Phone Librado Katlinjameel Primary Care Provider Unavailabl e Black, Eileen Unavailable [phone] REASON FOR VISIT cx appt 03/18/24 Encounters Encounter Location Date Provider Diagnosis [address] [address] 12/12/2023 Eileen Black Plan Of Treatment No Information Progress Notes * Jennifer BALDERASDOB:1944 (78 yo F)Acc No.[id number]:12/12/2023 Patient:?Jennifer Balderas :1945???Age:78 Y???Sex:Female Address:[address] [place] [address] * true * Date:? Generated for Violette bishop/Nan/eTransmitting on:?08/02/2024 01:14 PM EST
--- OUTSIDE RECORDS SUMMARY | 2024-08-02 13:15 | XMS_ITS | Patient Health Record ---
Author Organization [facility] Address [address] [place] [address] Care Team Providers Care Infant Lead Teacher Name Role Phone Po Nayan AKHTAR Primary Care Provider Alvaro Grimes Unavailable [phone] REASON FOR REFERRAL No Information MEDICATIONS Medication [...] Problem Diarrhea, unspecified type (R19.7) Active confirmed [id number] Problem Change in bowel function (R19.4) Active confirmed 042547102 Problem Encounter for screening for malignant neoplasm of colon (Z12.11) Active confirmed [id number] PLAN OF TREATMENT Future Test Test Name Order Date COLONOSCOPY 12/08/2016 Insurance Providers Payer Name Payer Address Payer Phone Subscriber Number Group Number Insured Name Patient Relationship to Insured Coverage Start Date Coverage End Date [facility] [address] [place] [phone] [id number] ROSA DIAZ Self - patient is the insured MEDICAL (GENERAL) HISTORY Medical History History ICD Code Screening colonoscopy 2005--neg. except fpor hyperplastic polyps, diverticulosis, and internal hemorroids NIDDM Hypertension Hyperlipidemia Anxiety She describes a heart block on her EKG Denies [place], CVA,Lung disease,renal diseas e Osteoarthosis Neg. colonoscopy in 12/2016. Biopsies neg for microscopic colitis Neg. labs for celiac disease in 2017. Diarrhea--much better on the cholestyram ine Surgical History Surgery Date(Month/Year) Breast reduction Left hip replacement approx 2010 [facility]
--- OUTSIDE RECORDS SUMMARY | 2024-08-02 13:15 | XMS_ITS ---
Author Organization [facility] Address [address] [place] [id number] Care Team Providers Care Office Manager Executive Assistant Name Role Phone Librado Aiyanajoselin Primary Care Provider Unavailabl e Black, Eileen Unavailable [phone] REASON FOR VISIT WHITESMITH Encounters Encounter Location Date Provider Diagnosis [facility] [address] [place] [address] 12/06/2023 Eileen Black Plan Of Treatment No Information Progress Notes * SHERRIE PaulineadrienneDOB:1944 (78 yo F)Acc No.[id number]:12/06/2023 Patient:?Jennifer Balderas :1945???Age:78 Y???Sex:Female Address:[address] [place] [id number] * true * Date:? Generated for Violette bishop/Nan/eTransmitting on:?08/02/2024 01:15 PM EST
--- OUTSIDE RECORDS SUMMARY | 2024-08-02 13:15 | XMS_ITS | Clinical Summary ---
Author Organization [facility] Address [address] [place] [address] Phone Care Team Providers Care Division Superintendent Name Role Phone Physician, Pcp Unknown Primary Care Provider Silvia vailable Allergies No known active allergies Medications metoprolol succinate (TOPROL-XL) 25 mg 24 hr [...] [facility] [address] [place] [address] James Herron MD Japaridze, Anna, MD Traumatic rhabdomyolysis, initial encounter ([facility]) (Primary Dx); Elevated troponin Discharge Disposition: Home or Self Care from Last 3 Months Medical History Medical History Date Comments Hypertension Diabetes mellitus ([facility]) CKD (chronic kidney disease) Atrial flutter ([facility]) Social History Tobacco Use Types Packs/Day Years Used Date Smoking Tobacco: Never Smokeless Tobacco: Never Tobacco Cessation:Counseling Given: Not Answered Alcohol Use Standard Drinks/Week Comments Never 0 (1 standard drink = 0.6 oz pur e alcohol) Interpersonal Safety Answer Date Record ed Physical Abuse 05/24/2024 Verbal Abuse 05/24/2024 Comments Unknown Sex and Gender Information Value Date Recorded Sex Assigned at Not on file Legal Sex Female 3:44 PM EDT Gender Identity Not on file Sexual Orientation Not on file Obstetrics History Last Filed [...] - 1-dose 75+ series) 2021 Pneumococcal Vaccine: 50+ Years (2 of 2 - PCV) 11/09/2022 11/09/2021, 04/25/2017 COVID-19 Vaccine ( season) 2024 10/25/2022, 05/10/2022, 11/02/2021, Additional history [...] AND DIFFERENTIAL STAT 05/22/2024 1:05 PM EST [facility] 30-74 MINUTES Routine 05/22/2024 12:11 PM EST ECG ANNOTATED 05/22/2024 from Last 3 Months Results * (ABNORMAL) POCT Glucose, blood (05/24/2024 11:52 AM EST) Only the most recent of5 resultswithin the time period is included. Glucose POCT 331(H) 70 - 100 mg/dL 05/24/2024 11:53 AM EST [facility] Blood Capillary blood specimen / Unknown 05/24/2024 11:52 AM EST 05/24/2024 11:54 AM EST us Amanda Day MD LAB POINT OF CARE TE ST DOCKED DEVICE UNSOLICITED RESULTS Final Result [facility] [address] [place] [address], [place] [phone] * (ABNORMAL) CBC auto differential (05/24/2024 6:09 AM EST) Only the most recent of3 resultswithin the time period is included. WBC 12.7(H) 4.8 - 10.8 K/mcL LAB HEMETOLOGY METHOD 05/24/2024 7:36 AM EST [facility] RBC 4.30 3.80 - 4.80 M/mcL LAB HEMETOLOGY METHOD 05/24/2024 7:36 AM EST [facility] Hemoglobin 11.4(L) 11.5 - 16.0 [...] LAB HEMETOLOGY METHOD 05/24/2024 7:36 AM EST [facility] Eosinophils Relative 2.0 % LAB HEMETOLOGY METHOD 05/24/2024 7:36 AM [facility] Basophils Relative 0.5 % LAB HEMETOLOGY METHOD 05/24/2024 7:36 AM [facility] Immature Granulocytes Relative 0.3 % LAB HEMETOLOGY METHOD 05/24/2024 7:36 AM [facility] Neutrophils Absolute 9.25(H) 1.50 - 7.00 K/mcL LAB HEMETOLOGY METHOD 05/24/2024 7:36 AM [facility] Lymphocytes Absolute 2.34 1.00 - 5.00 K/mcL LAB HEMETOLOGY METHOD 05/24/2024 7:36 AM [facility] Monocytes Absolute 0.74 0.20 - 1.00 K/mcL LAB HEMETOLOGY METHOD 05/24/2024 7:36 AM EST [facility] Eosinophils Absolute 0.26 0.00 - 0.50 K/mcL LAB HEMETOLOGY METHOD 05/24/2024 7:36 AM [facility] Basophils Absolute 0.06 0.00 - 0.20 K/mcL LAB HEMETOLOGY METHOD 05/24/2024 7:36 AM [facility] Immature Granulocytes Absolute 0.04(H) 0.00 - 0.03 K/mcL LAB HEMETOLOGY METHOD 05/24/2024 7:36 AM [facility] Blood Venous blood specimen / Unknown Venipuncture / Unknown 05/24/2024 6:09 AM EST 05/24/2024 7:25 AM EST us Amanda Day MD LAB BLOOD ORDERABLES Final Res ult [facility] [address] [place] [address], * (ABNORMAL) Creatine kinase and CKMB (05/24/2024 6:09 AM EST) Only the most recent of2 resultswithin the time period is included. [facility] Total CK 574(H) 22 - 269 unit/L LAB CHEMISTRY METHOD 05/24/2024 8:10 AM EST [facility] CK-MB 4.1(H) 1.0 - 3.6 ng/mL LAB CHEMISTRY METHOD 05/24/2024 8:10 AM [facility] CK-MB Index 0.0 0.0 - 5.0 LAB CHEMISTRY METHOD 05/24/2024 8:10 AM [facility] Blood Venous blood specimen / Unknown Venipuncture / Unknown 05/24/2024 6:09 AM EST 05/24/2024 7:26 AM EST us Amanda Day MD LAB BLOOD ORDERABLES Final Res ult [facility] [address] [place] [address], [place] [phone] * (ABNORMAL) Basic metabolic panel (05/24/2024 6:09 AM EST) Only the most recent of3 resultswithin the time period is included. [facility] Sodium 139 133 - 145 mmol/L LAB [...] mg/dL LAB CHEMISTRY METHOD 05/24/2024 8:07 AM EST [facility] eGFR 79 >=60 mL/min/1. 73m2 LAB CHEMISTRY METHOD 05/24/2024 8:07 AM EST [facility] Comment:Calculation based on the??Chronic Kidney Disease Epidemiology Collaboration (CKD-EPI) equation refit??without adjustment for race. BUN/Creatinine Ratio 27.3 LAB CHEMISTRY METHOD 05/24/2024 8:07 AM [facility] Calcium 8.6 8.5 - 10.5 mg/dL LAB CHEMISTRY METHOD 05/24/2024 8:07 AM [facility] Blood Venous blood specimen / Unknown Venipuncture / Unknown 05/24/2024 6:09 AM EST 05/24/2024 7:26 AM EST us Amanda Day MD LAB BLOOD ORDERABLES Final Res ult [facility] [address] [place] [address], * (ABNORMAL) TRANSTHORACIC ECHOCARDIOGRAM (TTE) COMPLETE W/ [...] 3.1 cm2 CV PACS Left Atrium Minor Clayton 6.0 cm CV PACS Left Atrium Major Clayton 6.5 cm CV PACS LA Area Sys [...] apex. James Herron MD CV ECHO PROCEDURES Final Re sult * Lipid panel with reflex to direct [...] 6:15 AM EST 05/23/2024 7:15 AM EST us Pedro Luis DEAN LAB BLOOD ORDERABLES Final Res ult [facility] [address] [place] [address], * Magnesium (05/23/2024 6:15 AM EST) Only the most recent of2 resultswithin the time period is included. [facility] Magnesium 2.5 1.9 - 2.6 mg/dL LAB CHEMISTRY METHOD 05/23/2024 8:05 AM EST [facility] Blood Venous blood specimen / Unknown Venipuncture / Unknown 05/23/2024 6:15 AM EST 05/23/2024 7:15 AM EST James Herron MD LAB BLOOD ORDERABLES Final Result Performing Organization Address City/[facility]/ZIP Co de Phone Number [facility] [address] [place] [address], * (ABNORMAL) Troponin I high sensitivity (05/22/2024 11:30 PM EST) Only the most recent of4 resultswithin the time period is included. [facility] High Sensitivity Troponin I 1,460(HH) <=54 ng/L LAB CHEMISTRY METHOD 05/23/2024 12:58 AM EST [facility] Blood Venous blood specimen / Unknown Venipuncture / Unknown 05/22/2024 11:30 PM EST 05/23/2024 12:18 AM EST Narrative [facility] - 05/23/2024 12:58 AM EST High levels of biotin in samples may falsely decrease hsTroponin values. ??Use caution when interpreting hsTroponin results in patients taking biotin who exhibit renal impairment (eGFR <60) or in patients taking more than 20 mg/day of biotin. us James Herron MD LAB BLOOD ORDERABLES Final Result Performing Organization Address City/[facility]/ZIP Co de Phone Number [facility] [address] [place] [address], * (ABNORMAL) Procalcitonin (05/22/2024 10:01 PM EST) [facility] Procalcitonin 0.68(H) <=0.16 ng/mL LAB CHEMISTRY METHOD 05/23/2024 9:44 AM EST [facility] Blood Venous blood specimen / Unknown Venipuncture / Unknown 05/22/2024 10:01 PM EST 05/22/2024 10:29 PM EST Narrative [facility] - 05/23/2024 9:44 AM EST [...] are obtained. James Herron MD LAB BLOOD ORDERABLES Final Result [facility] [address] [place] [address], [place] [phone] * Blood Culture, Peripheral Draw #1 (05/22/2024 10:01 PM EST) Culture, Blood No growth at 5 days 05/27/2024 11:01 PM EST [facility] Blood Venous blood specimen / Unknown Venipuncture / Unknown 05/22/2024 10:01 PM EST 05/22/2024 10:30 PM EST us James Herron MD LAB MICROBIOLOGY - GENERAL ORDERABLES Final Result [facility] [address] [place] [address], * Phosphorus (05/22/2024 10:01 PM EST) Phosphorus 3.4 2.5 - 4.5 mg/dL LAB CHEMISTRY METHOD 05/22/2024 11:00 PM EST [facility] Blood Venous blood specimen / Unknown Venipuncture / Unknown 05/22/2024 10:01 PM EST 05/22/2024 10:29 PM EST us James Herron MD LAB BLOOD ORDERABLES Final Result Performing Organization Address [facility] de Phone Number [facility] [address] [place] [address], * Lactate (05/22/2024 10:01 PM EST) Only the most recent of2 resultswithin the time period is included. Pathologist [facility] Lactate 1.7 0.4 - 2.0 mmol/L LAB CHEMISTRY METHOD 05/22/2024 10:59 PM EST [facility] Blood Venous blood specimen / Unknown Venipuncture / Unknown 05/22/2024 10:01 PM EST 05/22/2024 10:31 PM EST us James Herron MD LAB BLOOD ORDERABLES Final Result Performing Organization Address [facility] Co de Phone Number [facility] [address] [place] [address], * (ABNORMAL) Hepatic function panel (05/22/2024 10:01 PM EST) Total Protein 6.6 6.0 - 8.0 g/dL LAB CHEMISTRY METHOD 05/22/2024 11:00 PM EST [facility] Albumin 3.2 3.2 - 5.0 g/dL LAB CHEMISTRY METHOD 05/22/2024 11:00 PM [facility] Total Bilirubin 0.6 0.0 - 1.4 mg/dL LAB CHEMISTRY METHOD 05/22/2024 11:00 PM [facility] Bilirubin, Direct 0.3 0.0 - 0.3 mg/dL LAB CHEMISTRY METHOD 05/22/2024 11:00 PM [facility] Bilirubin, Indirect 0.3 0.0 - 1.1 mg/dL LAB CHEMISTRY METHOD 05/22/2024 11:00 PM [facility] ALT (SGPT) 44 10 - 60 unit/L LAB CHEMISTRY METHOD 05/22/2024 11:00 PM [facility] AST (SGOT) 65(H) 10 - 42 unit/L LAB CHEMISTRY METHOD 05/22/2024 11:00 PM [facility] Alkaline Phosphatase 88 42 - 121 unit/L LAB CHEMISTRY METHOD 05/22/2024 11:00 PM [facility] Blood Venous blood specimen / Unknown Venipuncture / Unknown 05/22/2024 10:01 PM EST 05/22/2024 10:29 PM EST us James Herron MD LAB BLOOD ORDERABLES Final Result [facility] [address] [place] [address], * ECG 12 lead (05/22/2024 8:22 PM EST) Only the most recent of2 resultswithin the time period is included. Ventricular Rate ECG 68 BPM GEMUSE Atrial Rate 264 BPM GEMUSE QRS Duration 86 ms GEMUSE Q-T Interval 420 ms GEMUSE QTc 447 ms GEMUSE R Clayton 64 degrees GEMUSE T Clayton 101 degrees GEMUSE ECG Interpretation Atrial flutter with 4:1 A-V conduction Anteroseptal infarct (cited on or before 22-MAY-2024) Abnormal ECG When compared with ECG of 22-MAY-2024 13:48, No significant change was found Confirmed by MD Jaguar, [place] ([id number]) on 05/23/2024 2:44:22 PM GEMUSE 05/22/2024 8:22 PM EST 05/23/2024 2:44 PM EST us Karen Rea DIANNE ECG ORDERABLES Final Result GEMUSE * CT Abdomen Pelvis w Contrast [...] Elam MD on 05/22/2024 18:32:13 Karen DEAN [facility] CT PROCEDURES Final Result * (ABNORMAL) Urinalysis with reflex microscopic and culture (05/22/2024 5:15 PM EST) Specific [place] Urine 1.030 1.003 - 1.030 LAB URINALYSIS [...] 5:15 PM EST 05/22/2024 6:04 PM EST us Karen DEAN LAB URINE ORDERABLES Final Res ult Performing Organization Address City/[facility]/ZIP Co de Phone Number [facility] [address] [place] [address], * Ty urine culture tube (05/22/2024 5:15 PM EST) Pathologist [facility] Extra Tube Hold for add-ons. 05/22/2024 8:01 PM EST [facility] Comment:Auto resulted. Urine Urine specimen obtained by clean catch procedure / Unknown Non-blood Collection / Unknown 05/22/2024 5:15 PM EST 05/22/2024 6:04 PM EST Karen DEAN LAB URINE ORDERABLES Final Res ult Performing Organization Address [facility] Co de Phone Number [facility] [address] [place] [address], * (ABNORMAL) C-reactive protein (05/22/2024 4:05 PM EST) [facility] C-Reactive Protein 9.02(H) <=0.50 mg/dL LAB CHEMISTRY METHOD 05/22/2024 8:59 PM EST [facility] Blood Venous blood specimen / Unknown Venipuncture / Unknown 05/22/2024 4:05 PM EST 05/22/2024 4:17 PM EST James Herron MD LAB BLOOD ORDERABLES Final Result Performing Organization Address City/[facility]/ZIP Co de Phone Number [facility] [address] [place] [address], * (ABNORMAL) Cardiac Enzymes - CPK (05/22/2024 4:05 PM EST) [facility] Total CK 2,191(H) 22 - 269 unit/L LAB CHEMISTRY METHOD 05/22/2024 5:02 PM EST [facility] Comment:Results verified by repeat testing Blood Venous blood specimen / Unknown Venipuncture / Unknown 05/22/2024 4:05 PM EST 05/22/2024 4:17 PM EST us Karen DEAN LAB BLOOD ORDERABLES Final Res ult [facility] [address] [place] [address], * CT Cervical Spine wo Contrast (05/22/2024 [...] Signed Date: 05/22/2024 14:58 ET Workstation ID: [id number] Transcribed By: Self Edit Transcribed Date: 05/22/2024 [...] Signed Date: 05/22/2024 14:58 ET Workstation ID: [id number] Transcribed By: Self Edit Transcribed Date: 05/22/2024 14:51 ET Karen Rea DIANNE IM CT PROCEDURES Final Result * CT Head wo Contrast (05/22/2024 2:24 PM EST) Anatomical Region Laterality Modality Head and Neck Computed Tomogra phy 05/22/2024 2:31 PM EST Impressions 05/22/2024 2:35 PM EST No acute intracranial findings. -------- FINAL REPORT -------- Dictated By: Dung Lopez Dictated Date: 05/22/2024 14:31 ET Assigned Physician: Dung Lopez Reviewed and Electronically Signed By: Dung Lopez Signed Date: 05/22/2024 14:35 ET Workstation ID: [id number] Transcribed By: Self Edit Transcribed Date: 05/22/2024 [...] Signed Date: 05/22/2024 14:35 ET Workstation ID: [id number] Transcribed By: Self Edit Transcribed Date: 05/22/2024 14:31 ET Karen DEAN IMG CT PROCEDURES Final Result * (ABNORMAL) Manual differential (05/22/2024 1:05 PM EST) Neutrophils % 83.0 % LAB HEMETOLOGY METHOD 05/22/2024 1:59 PM EST [facility] Bands % 2.0 % LAB HEMETOLOGY METHOD 05/22/2024 1:59 PM EST [facility] Lymphocytes % 6.0 % LAB HEMETOLOGY METHOD 05/22/2024 1:59 PM [facility] Monocytes % 10.0 % LAB HEMETOLOGY METHOD 05/22/2024 1:59 PM [facility] Eosinophils % 0.0 % LAB HEMETOLOGY METHOD 05/22/2024 1:59 PM EST [facility] Basophils % 0.0 % LAB HEMETOLOGY METHOD 05/22/2024 1:59 PM EST [facility] Neutrophils Absolute Manual 17.26(H) 1.50 - 7.00 K/mcL LAB HEMETOLOGY METHOD 05/22/2024 1:59 PM EST [facility] Bands Absolute Manual 0.42(H) 0.00 - 0.00 K/mcL LAB HEMETOLOGY METHOD 05/22/2024 1:59 PM [facility] Lymphocytes Absolute 1.25 1.00 - 5.00 K/mcL LAB HEMETOLOGY METHOD 05/22/2024 1:59 PM [facility] Monocytes Absolute Manual 2.08(H) 0.20 - 1.00 K/mcL LAB HEMETOLOGY METHOD 05/22/2024 1:59 PM [facility] Eosinophils Absolute Manual 0.00 0.00 - 0.50 K/mcL LAB HEMETOLOGY METHOD 05/22/2024 1:59 PM EST [facility] Basophils Absolute Manual 0.00 0.00 - 0.20 K/mcL LAB HEMETOLOGY METHOD 05/22/2024 1:59 PM EST [facility] Rbc Morphology Consistent with indices Consistent with indices, Normal for LAB HEMETOLOGY METHOD 05/22/2024 1:59 PM EST [facility] Platelet Morphology - WAM See Note(A) Normal LAB HEMETOLOGY METHOD 05/22/2024 1:59 PM EST [facility] Comment:PLT: Normal Blood Venous blood specimen / Unknown Venipuncture / Unknown 05/22/2024 1:05 PM EST 05/22/2024 1:11 PM EST us Karen DEAN LAB BLOOD ORDERABLES Final Res ult [facility] [address] [place] [address], [place] [phone] * (ABNORMAL) Hemoglobin A1c (05/22/2024 1:05 PM EST) Hemoglobin A1C 7.7(H) <6.5 % LAB CHEMISTRY METHOD 05/23/2024 11:39 AM EST [facility] Mean Bld Glu Estim. 174 mg/dL LAB CHEMISTRY METHOD 05/23/2024 11:39 AM EST [facility] Blood Venous blood specimen / Unknown Venipuncture / Unknown 05/22/2024 1:05 PM EST 05/22/2024 1:11 PM EST Pedro Luis DEAN LAB BLOOD ORDERABLES Final Res ult [facility] [address] [place] [address], [place] [phone] * SD CRITICAL CARE 30-74 MINUTES (05/22/2024 12:11 PM [...] charts ??Care discussed with: admitting provider ?? us Kj Shoemaker MD IN CLINIC/BEDSIDE ORDERABLES Fi nal Result * ECG-Annotated (05/22/2024) us Provider Onbase ECG ORDERABLES Final Result from Last 3 Months Insurance [employer] Advance Directives * Full Code - Default (Latest Code Status on File) Date Activated Date Inactivated Comments 05/22/2024 8:50 PM 05/24/2024 6:28 PM This is ord er is used when code status has not been discussed with the patient, or code status is otherwise unknown/unconfirmed To update the patient's code status, place a code status order. Do not modify or discontinue any currently active code status orders. Care Teams Division Superintendent Relationship Specialty Start Date End Date Physician, Pcp Unknown PCP - General 05/22/24
== END 2024-08-02 15:47 | disposition home or self-care (01) ==
PROVIDERS: PCP Internal Medicine; Visit Provider Nurse Practitioner Family
DX: I25.10 Atherosclerotic heart disease of native coronary artery without angina pectoris (principal); I72.9 Aneurysm of unspecified site; I48.92 Unspecified atrial flutter; I25.2 Old myocardial infarction; E78.00 Pure hypercholesterolemia, unspecified; M17.0 Bilateral primary osteoarthritis of knee; Z01.810 Encounter for preprocedural cardiovascular examination; I10 Essential (primary) hypertension; R94.39 Abnormal result of other cardiovascular function study
CPT/HCPCS: 99215; G2211

== ENCOUNTER 2024-08-02 13:51 | Outpatient (REF) | payer MEDICARE, SELFPAY ==
--- NOTE | ~2024-08-02 | US_ITS ---
CLINICAL HISTORY: R09.89 - s p cardiac cath, abnormal radial pulse, assess for pseudoaneurysm Ultrasound duplex Doppler ultrasound radial artery with waveform analysis: Comparison: None. Findings: Real-time color Doppler ultrasound of the radial artery region of interest reveals a 1.2 cm vascular spherical mass in the anterior surface of the radial artery with bidirectional flow and arterial blood flow within the mass with peak systolic velocity of 82 centimeters/second and no flow during diastole. 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 The neck of the aneurysm is estimated at 1.7 mm. 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 The neck of the aneurysm is 1.7 mm. There is no blood flow during diastole therefore no evidence of arterial venous fistula. This document has been electronically signed by: Madi Reyna MD on 08/02/2024 16:32:55
--- OUTSIDE RECORDS SUMMARY | 2024-08-02 13:54 | XMS_ITS | Clinical Summary ---
Author Organization [facility] Facility Address [address] [address] Care Team Providers Care Velvet Cutter Name Role Phone Nayan Pavon MD Primary Care Provider [phone] Social History Tobacco Use Types Packs/Day Years [...] PCV) 011 Influenza Vaccine (#1) 2024 Insurance [facility] Care Teams Velvet Cutter Relationship Specialty Start Date End Date Nayan Pavon MD [facility] [place] [address] [place], [place] PCP - General Internal Medicine 06/30/22
--- OUTSIDE RECORDS SUMMARY | 2024-08-02 13:54 | XMS_ITS | Clinical Summary ---
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 Operator Name Role Phone Physician, Pcp Unknown Primary [...] - 05/24/2024 4:22 PM EST Hospital Encounter [facility] Intermediate Care Unit [address] [place] [address] James Herron MD Japaridze, Anna, MD Traumatic rhabdomyolysis, initial encounter ([facility]) (Primary Dx); Elevated troponin Discharge Disposition: Home or Self Care from Last 3 Months Medical History Medical History Date Comments Hypertension Diabetes mellitus ([facility]) CKD (chronic kidney disease) Atrial flutter ([facility]) Social History Tobacco Use Types Packs/Day Years [...] AND DIFFERENTIAL STAT 05/22/2024 1:05 PM EST [place] [facility] 30-74 MINUTES Routine 05/22/2024 12:11 PM EST ECG ANNOTATED 05/22/2024 from Last 3 Months Results * (ABNORMAL) POCT Glucose, blood (05/24/2024 11:52 AM EST) Only the most recent of5 resultswithin the time period is included. Glucose POCT 331(H) 70 - 100 mg/dL 05/24/2024 11:53 AM EST [facility] Blood Capillary blood specimen / Unknown 05/24/2024 11:52 AM EST 05/24/2024 11:54 AM EST us Amanda Day MD LAB POINT OF CARE TE ST DOCKED DEVICE UNSOLICITED RESULTS Final Result [facility] [address] [place] [address], [place] [phone] * (ABNORMAL) CBC auto differential (05/24/2024 6:09 AM EST) Only the most recent of3 resultswithin the time period is included. WBC 12.7(H) 4.8 - 10.8 K/mcL LAB HEMETOLOGY METHOD 05/24/2024 7:36 AM EST [facility] RBC 4.30 3.80 - 4.80 M/mcL LAB HEMETOLOGY METHOD 05/24/2024 7:36 AM EST [facility] Hemoglobin 11.4(L) 11.5 - 16.0 g/dL LAB HEMETOLOGY METHOD 05/24/2024 7:36 AM [facility] Hematocrit 35.6 35.0 - 47.0 % LAB HEMETOLOGY METHOD 05/24/2024 7:36 AM [facility] MCV 82.2 79.0 - 98.0 FL LAB HEMETOLOGY METHOD 05/24/2024 7:36 AM [facility] MCH 26.3(L) 27.0 - 32.0 pcg LAB HEMETOLOGY METHOD 05/24/2024 7:36 AM [facility] MCHC 32.0 32.0 - 37.0 g/dL LAB HEMETOLOGY METHOD 05/24/2024 7:36 AM [facility] RDW 13.9 11.0 - 15.0 % LAB HEMETOLOGY METHOD 05/24/2024 7:36 AM [facility] Platelets 343 130 - 400 K/mcL LAB HEMETOLOGY METHOD 05/24/2024 7:36 AM [facility] MPV 9.6 7.0 - 11.0 FL LAB HEMETOLOGY METHOD 05/24/2024 7:36 AM [facility] NRBC 0.0 <1.0 % LAB HEMETOLOGY METHOD 05/24/2024 7:36 AM [facility] NRBC Absolute 0.00 <0.10 K/mcL LAB HEMETOLOGY METHOD 05/24/2024 7:36 AM [facility] Neutrophils Relative 73.0 % LAB HEMETOLOGY METHOD 05/24/2024 7:36 AM [facility] Lymphocytes Relative 18.4 % LAB HEMETOLOGY METHOD 05/24/2024 7:36 AM [facility] Monocytes Relative 5.8 % LAB HEMETOLOGY METHOD 05/24/2024 7:36 AM EST [facility] Eosinophils Relative 2.0 % LAB HEMETOLOGY METHOD 05/24/2024 7:36 AM [facility] Basophils Relative 0.5 % LAB HEMETOLOGY METHOD 05/24/2024 7:36 AM [facility] Immature Granulocytes Relative 0.3 % LAB HEMETOLOGY METHOD 05/24/2024 7:36 AM [facility] Neutrophils Absolute 9.25(H) 1.50 - 7.00 K/mcL LAB HEMETOLOGY METHOD 05/24/2024 7:36 AM [facility] Lymphocytes Absolute 2.34 1.00 - 5.00 K/mcL LAB HEMETOLOGY METHOD 05/24/2024 7:36 AM [facility] Monocytes Absolute 0.74 0.20 - 1.00 K/mcL LAB HEMETOLOGY METHOD 05/24/2024 7:36 AM EST [facility] Eosinophils Absolute 0.26 0.00 - 0.50 K/mcL LAB HEMETOLOGY METHOD 05/24/2024 7:36 AM [facility] Basophils Absolute 0.06 0.00 - 0.20 K/mcL LAB HEMETOLOGY METHOD 05/24/2024 7:36 AM [facility] Immature Granulocytes Absolute 0.04(H) 0.00 - 0.03 K/mcL LAB HEMETOLOGY METHOD 05/24/2024 7:36 AM [facility] Blood Venous blood specimen / Unknown Venipuncture / Unknown 05/24/2024 6:09 AM EST 05/24/2024 7:25 AM EST us Amanda Day MD LAB BLOOD ORDERABLES Final Res ult [facility] [address] [place] [address], * (ABNORMAL) Creatine kinase and CKMB (05/24/2024 6:09 AM EST) Only the most recent of2 resultswithin the time period is included. [facility] Total CK 574(H) 22 - 269 unit/L LAB CHEMISTRY METHOD 05/24/2024 8:10 AM EST [facility] CK-MB 4.1(H) 1.0 - 3.6 ng/mL LAB CHEMISTRY METHOD 05/24/2024 8:10 AM [facility] CK-MB Index 0.0 0.0 - 5.0 LAB CHEMISTRY METHOD 05/24/2024 8:10 AM [facility] Blood Venous blood specimen / Unknown Venipuncture / Unknown 05/24/2024 6:09 AM EST 05/24/2024 7:26 AM EST us Amanda Day MD LAB BLOOD ORDERABLES Final Res ult [facility] [address] [place] [address], [place] [phone] * (ABNORMAL) Basic metabolic panel (05/24/2024 6:09 AM EST) Only the most recent of3 resultswithin the time period is included. [facility] Sodium 139 133 - 145 mmol/L LAB CHEMISTRY METHOD 05/24/2024 8:07 AM [facility] Potassium 4.1 3.5 - 5.5 mmol/L LAB CHEMISTRY METHOD 05/24/2024 8:07 AM [facility] Chloride 107 96 - 110 mmol/L LAB CHEMISTRY METHOD 05/24/2024 8:07 AM [facility] CO2 23 21 - 32 mmol/L LAB CHEMISTRY METHOD 05/24/2024 8:07 AM [facility] Anion Gap 9 3 - 11 LAB CHEMISTRY METHOD 05/24/2024 8:07 AM [facility] Glucose 242(H) 70 - 100 mg/dL LAB CHEMISTRY METHOD 05/24/2024 8:07 AM [facility] BUN 21 5 - 25 mg/dL LAB CHEMISTRY METHOD 05/24/2024 8:07 AM [facility] Creatinine 0.77 0.50 - 1.10 mg/dL LAB CHEMISTRY METHOD 05/24/2024 8:07 AM EST [facility] eGFR 79 >=60 mL/min/1. 73m2 LAB CHEMISTRY METHOD 05/24/2024 8:07 AM EST [facility] Comment:Calculation based on the??Chronic Kidney Disease Epidemiology Collaboration (CKD-EPI) equation refit??without adjustment for race. BUN/Creatinine Ratio 27.3 LAB CHEMISTRY METHOD 05/24/2024 8:07 AM [facility] Calcium 8.6 8.5 - 10.5 mg/dL LAB CHEMISTRY METHOD 05/24/2024 8:07 AM [facility] Blood Venous blood specimen / Unknown Venipuncture / Unknown 05/24/2024 6:09 AM EST 05/24/2024 7:26 AM EST us Amanda Day MD LAB BLOOD ORDERABLES Final Res ult [facility] [address] [place] [address], * (ABNORMAL) TRANSTHORACIC ECHOCARDIOGRAM (TTE) COMPLETE W/ [...] 3.1 cm2 CV PACS Left Atrium Minor [place] 6.0 cm CV PACS Left Atrium Major [place] 6.5 cm CV PACS [place] Area Sys [...] mg/dL LAB CHEMISTRY METHOD 05/23/2024 8:04 AM [facility] Triglycerides 117 0 - 150 mg/dL LAB CHEMISTRY METHOD 05/23/2024 8:04 AM [facility] HDL 54 >=40 mg/dL LAB CHEMISTRY METHOD 05/23/2024 8:04 AM [facility] LDL Calculated 30 0 - 100 mg/dL LAB CHEMISTRY METHOD 05/23/2024 8:04 AM [facility] VLDL Cholesterol Matthew 23.4 mg/dL LAB CHEMISTRY METHOD 05/23/2024 8:04 AM [facility] Non HDL Chol. (LDL+VLDL) 53 <145 mg/dL LAB CHEMISTRY METHOD 05/23/2024 8:04 AM [facility] Chol/HDL Ratio 2.0 0.0 - 4.4 LAB CHEMISTRY METHOD 05/23/2024 8:04 AM [facility] Blood Venous blood specimen / Unknown Venipuncture / Unknown 05/23/2024 6:15 AM EST 05/23/2024 7:15 AM EST us Pedro Luis DEAN LAB BLOOD ORDERABLES Final Res ult [facility] [address] [place] [address], * Magnesium (05/23/2024 6:15 AM EST) Only the most recent of2 resultswithin the time period is included. [facility] Magnesium 2.5 1.9 - 2.6 mg/dL LAB CHEMISTRY METHOD 05/23/2024 8:05 AM EST [facility] Blood Venous blood specimen / Unknown Venipuncture / Unknown 05/23/2024 6:15 AM EST 05/23/2024 7:15 AM EST James Herron MD LAB BLOOD ORDERABLES Final Result Performing Organization Address City/[facility]/ZIP Co de Phone Number [facility] [address] [place] [address], * (ABNORMAL) Troponin I high sensitivity (05/22/2024 11:30 PM EST) Only the most recent of4 resultswithin the time period is included. [facility] High Sensitivity Troponin I 1,460(HH) <=54 ng/L LAB CHEMISTRY METHOD 05/23/2024 12:58 AM EST [facility] Blood Venous blood specimen / Unknown Venipuncture / Unknown 05/22/2024 11:30 PM EST 05/23/2024 12:18 AM EST Narrative [facility] - 05/23/2024 12:58 AM EST High levels of biotin in samples may falsely decrease hsTroponin values. ??Use caution when interpreting hsTroponin results in patients taking biotin who exhibit renal impairment (eGFR <60) or in patients taking more than 20 mg/day of biotin. us James Herron MD LAB BLOOD ORDERABLES Final Result Performing Organization Address City/[facility]/ZIP Co de Phone Number [facility] [address] [place] [address], * (ABNORMAL) Procalcitonin (05/22/2024 10:01 PM EST) [facility] Procalcitonin 0.68(H) <=0.16 ng/mL LAB CHEMISTRY METHOD 05/23/2024 9:44 AM EST [facility] Blood Venous blood specimen / Unknown Venipuncture / Unknown 05/22/2024 10:01 PM EST 05/22/2024 10:29 PM EST Narrative [facility] - 05/23/2024 9:44 AM EST [...] Herron MD LAB BLOOD ORDERABLES Final Result [facility] [address] [place] [address], [place] [phone] * Blood Culture, Peripheral Draw #1 (05/22/2024 10:01 PM EST) Culture, Blood No growth at 5 days 05/27/2024 11:01 PM EST [facility] Blood Venous blood specimen / Unknown Venipuncture / Unknown 05/22/2024 10:01 PM EST 05/22/2024 10:30 PM EST us James Herron MD LAB MICROBIOLOGY - GENERAL ORDERABLES Final Result [facility] [address] [place] [address], * Phosphorus (05/22/2024 10:01 PM EST) Phosphorus 3.4 2.5 - 4.5 mg/dL LAB CHEMISTRY METHOD 05/22/2024 11:00 PM EST [facility] Blood Venous blood specimen / Unknown Venipuncture / Unknown 05/22/2024 10:01 PM EST 05/22/2024 10:29 PM EST us James Herron MD LAB BLOOD ORDERABLES Final Result Performing Organization Address [facility] de Phone Number [facility] [address] [place] [address], * Lactate (05/22/2024 10:01 PM EST) Only the most recent of2 resultswithin the time period is included. Pathologist [facility] Lactate 1.7 0.4 - 2.0 mmol/L LAB CHEMISTRY METHOD 05/22/2024 10:59 PM EST [facility] Blood Venous blood specimen / Unknown Venipuncture / Unknown 05/22/2024 10:01 PM EST 05/22/2024 10:31 PM EST us James Herron MD LAB BLOOD ORDERABLES Final Result Performing Organization Address [facility] Co de Phone Number [facility] [address] [place] [address], * (ABNORMAL) Hepatic function panel (05/22/2024 10:01 PM EST) Total Protein 6.6 6.0 - 8.0 g/dL LAB CHEMISTRY METHOD 05/22/2024 11:00 PM EST [facility] Albumin 3.2 3.2 - 5.0 g/dL LAB CHEMISTRY METHOD 05/22/2024 11:00 PM [facility] Total Bilirubin 0.6 0.0 - 1.4 mg/dL LAB CHEMISTRY METHOD 05/22/2024 11:00 PM [facility] Bilirubin, Direct 0.3 0.0 - 0.3 mg/dL LAB CHEMISTRY METHOD 05/22/2024 11:00 PM [facility] Bilirubin, Indirect 0.3 0.0 - 1.1 mg/dL LAB CHEMISTRY METHOD 05/22/2024 11:00 PM [facility] ALT (SGPT) 44 10 - 60 unit/L LAB CHEMISTRY METHOD 05/22/2024 11:00 PM [facility] AST (SGOT) 65(H) 10 - 42 unit/L LAB CHEMISTRY METHOD 05/22/2024 11:00 PM [facility] Alkaline Phosphatase 88 42 - 121 unit/L LAB CHEMISTRY METHOD 05/22/2024 11:00 PM [facility] Blood Venous blood specimen / Unknown Venipuncture / Unknown 05/22/2024 10:01 PM EST 05/22/2024 10:29 PM EST us James Herron MD LAB BLOOD ORDERABLES Final Result [facility] [address] [place] [address], * ECG 12 lead (05/22/2024 8:22 PM EST) Only the most recent of2 resultswithin the time period is included. Ventricular Rate ECG 68 BPM GEMUSE Atrial Rate 264 BPM GEMUSE QRS Duration 86 ms GEMUSE Q-T Interval 420 ms GEMUSE QTc 447 ms GEMUSE R [place] 64 degrees GEMUSE T [place] 101 degrees GEMUSE ECG Interpretation Atrial flutter with 4:1 A-V conduction Anteroseptal infarct (cited on or before 22-MAY-2024) Abnormal ECG When compared with ECG of 22-MAY-2024 13:48, No significant change was found Confirmed by MD Jaguar, [place] ([id number]) on 05/23/2024 2:44:22 PM GEMUSE 05/22/2024 [...] Elam MD on 05/22/2024 18:32:13 Karen DEAN [facility] CT PROCEDURES Final Result * (ABNORMAL) Urinalysis with reflex microscopic and culture (05/22/2024 5:15 PM EST) Specific [place] Urine 1.030 1.003 - 1.030 LAB URINALYSIS - AUTOMATED METHOD 05/22/2024 6:35 PM [facility] pH, Urine 5.5 5.0 - 8.0 pH LAB URINALYSIS - AUTOMATED METHOD 05/22/2024 6:35 PM [facility] Leukocytes, Urine Negative Negative LAB URINALYSIS - AUTOMATED METHOD 05/22/2024 6:35 PM [facility] Nitrite, Urine Negative Negative LAB URINALYSIS - AUTOMATED METHOD 05/22/2024 6:35 PM [facility] Protein, Urine 100(A) <=Trace mg/dL LAB URINALYSIS - AUTOMATED METHOD 05/22/2024 6:35 PM [facility] Glucose, Urine >=1000(A) Negative mg/dL LAB URINALYSIS - AUTOMATED METHOD 05/22/2024 6:35 PM [facility] Ketones, Urine 15(A) Negative mg/dL LAB URINALYSIS - AUTOMATED METHOD 05/22/2024 6:35 PM [facility] Urobilinogen , Urine 0.2 0.2 - 1.0 mg/dL LAB URINALYSIS - AUTOMATED METHOD 05/22/2024 6:35 PM [facility] Bilirubin, Urine Negative Negative LAB URINALYSIS - AUTOMATED METHOD 05/22/2024 6:35 PM [facility] Blood, Urine Large(A) Negative LAB URINALYSIS - AUTOMATED METHOD 05/22/2024 6:35 PM [facility] RBC, Urine 3.4 0 - 4 /HPF LAB URINALYSIS - AUTOMATED METHOD 05/22/2024 6:35 PM [facility] WBC, Urine 2.7 0 - 4 /HPF LAB URINALYSIS - AUTOMATED METHOD 05/22/2024 6:35 PM [facility] Squamous Epithelial, Urine >100(H) 0 - 60 /LPF LAB URINALYSIS - AUTOMATED METHOD 05/22/2024 6:35 PM [facility] Bacteria, Urine Few(A) Negative /HPF LAB URINALYSIS - AUTOMATED METHOD 05/22/2024 6:35 PM [facility] Hyaline Casts, Urine 1.7 0 - 3 /LPF LAB URINALYSIS - AUTOMATED METHOD 05/22/2024 6:35 PM [facility] Yeast, Urine Present(A) None /HPF LAB URINALYSIS - AUTOMATED METHOD 05/22/2024 6:35 PM [facility] Urine Urine specimen obtained by clean catch procedure / Unknown Non-blood Collection / Unknown 05/22/2024 5:15 PM EST 05/22/2024 6:04 PM EST us Karen DEAN LAB URINE ORDERABLES Final Res ult Performing Organization Address City/[facility]/ZIP Co de Phone Number [facility] [address] [place] [address], * Ty urine culture tube (05/22/2024 5:15 PM EST) Pathologist [facility] Extra Tube Hold for add-ons. 05/22/2024 8:01 PM EST [facility] Comment:Auto resulted. Urine Urine specimen obtained by clean catch procedure / Unknown Non-blood Collection / Unknown 05/22/2024 5:15 PM EST 05/22/2024 6:04 PM EST Karen DEAN LAB URINE ORDERABLES Final Res ult Performing Organization Address [facility] Co de Phone Number [facility] [address] [place] [address], * (ABNORMAL) C-reactive protein (05/22/2024 4:05 PM EST) [facility] C-Reactive Protein 9.02(H) <=0.50 mg/dL LAB CHEMISTRY METHOD 05/22/2024 8:59 PM EST [facility] Blood Venous blood specimen / Unknown Venipuncture / Unknown 05/22/2024 4:05 PM EST 05/22/2024 4:17 PM EST James Herron MD LAB BLOOD ORDERABLES Final Result Performing Organization Address City/[facility]/ZIP Co de Phone Number [facility] [address] [place] [address], * (ABNORMAL) Cardiac Enzymes - CPK (05/22/2024 4:05 PM EST) [facility] Total CK 2,191(H) 22 - 269 unit/L LAB CHEMISTRY METHOD 05/22/2024 5:02 PM EST [facility] Comment:Results verified by repeat testing Blood Venous blood specimen / Unknown Venipuncture / Unknown 05/22/2024 4:05 PM EST 05/22/2024 4:17 PM EST us Karen DEAN LAB BLOOD ORDERABLES Final Res ult [facility] ([facility] [address] [place] [address], * CT Cervical Spine wo Contrast (05/22/2024 [...] Signed Date: 05/22/2024 14:58 ET Workstation ID: [id number] Transcribed By: Self Edit Transcribed Date: 05/22/2024 [...] Signed Date: 05/22/2024 14:58 ET Workstation ID: [id number] Transcribed By: Self Edit Transcribed Date: 05/22/2024 [...] Signed Date: 05/22/2024 14:35 ET Workstation ID: [id number] Transcribed By: Self Edit Transcribed Date: 05/22/2024 [...] Signed Date: 05/22/2024 14:35 ET Workstation ID: [id number] Transcribed By: Self Edit Transcribed Date: 05/22/2024 14:31 ET Karen DEAN IMG CT PROCEDURES Final Result * (ABNORMAL) Manual differential (05/22/2024 1:05 PM EST) Neutrophils % 83.0 % LAB HEMETOLOGY METHOD 05/22/2024 1:59 PM EST [facility] Bands % 2.0 % LAB HEMETOLOGY METHOD 05/22/2024 1:59 PM EST [facility] Lymphocytes % 6.0 % LAB HEMETOLOGY METHOD 05/22/2024 1:59 PM [facility] Monocytes % 10.0 % LAB HEMETOLOGY METHOD 05/22/2024 1:59 PM [facility] Eosinophils % 0.0 % LAB HEMETOLOGY METHOD 05/22/2024 1:59 PM EST [facility] Basophils % 0.0 % LAB HEMETOLOGY METHOD 05/22/2024 1:59 PM EST [facility] Neutrophils Absolute Manual 17.26(H) 1.50 - 7.00 K/mcL LAB HEMETOLOGY METHOD 05/22/2024 1:59 PM EST [facility] Bands Absolute Manual 0.42(H) 0.00 - 0.00 K/mcL LAB HEMETOLOGY METHOD 05/22/2024 1:59 PM [facility] Lymphocytes Absolute 1.25 1.00 - 5.00 K/mcL LAB HEMETOLOGY METHOD 05/22/2024 1:59 PM [facility] Monocytes Absolute Manual 2.08(H) 0.20 - 1.00 K/mcL LAB HEMETOLOGY METHOD 05/22/2024 1:59 PM [facility] Eosinophils Absolute Manual 0.00 0.00 - 0.50 K/mcL LAB HEMETOLOGY METHOD 05/22/2024 1:59 PM EST [facility] Basophils Absolute Manual 0.00 0.00 - 0.20 K/mcL LAB HEMETOLOGY METHOD 05/22/2024 1:59 PM EST [facility] Rbc Morphology Consistent with indices Consistent with indices, Normal for LAB HEMETOLOGY METHOD 05/22/2024 1:59 PM EST [facility] Platelet Morphology - WAM See Note(A) Normal LAB HEMETOLOGY METHOD 05/22/2024 1:59 PM EST [facility] Comment:PLT: Normal Blood Venous blood specimen / Unknown Venipuncture / Unknown 05/22/2024 1:05 PM EST 05/22/2024 1:11 PM EST us Karen DEAN LAB BLOOD ORDERABLES Final Res ult [facility] [address] [place] [address], [place] [phone] * (ABNORMAL) Hemoglobin A1c (05/22/2024 1:05 PM EST) Hemoglobin A1C 7.7(H) <6.5 % LAB CHEMISTRY METHOD 05/23/2024 11:39 AM EST [facility] Mean Bld Glu Estim. 174 mg/dL LAB CHEMISTRY METHOD 05/23/2024 11:39 AM EST [facility] Blood Venous blood specimen / Unknown Venipuncture / Unknown 05/22/2024 1:05 PM EST 05/22/2024 1:11 PM EST Pedro Luis DEAN LAB BLOOD ORDERABLES Final Res ult [facility] [address] [place] [address], [place] [phone] * [place] [facility] 30-74 MINUTES (05/22/2024 12:11 PM [...] currently active code status orders. Care Teams Plodding Machine Operator Relationship Specialty Start Date End Date Physician, Pcp Unknown PCP - General 05/22/24
== END 2024-08-02 13:52 | disposition home or self-care (01) ==
LOC: HO.US 13:51
PROVIDERS: PCP Internal Medicine; Visit Provider Nurse Practitioner Family
DX: R09.89 Other specified symptoms and signs involving the circulatory and respiratory systems (principal); Z98.890 Other specified postprocedural states; I25.10 Atherosclerotic heart disease of native coronary artery without angina pectoris; I72.9 Aneurysm of unspecified site; I48.92 Unspecified atrial flutter; I25.2 Old myocardial infarction; E78.00 Pure hypercholesterolemia, unspecified; M17.12 Unilateral primary osteoarthritis, left knee; M17.11 Unilateral primary osteoarthritis, right knee; I10 Essential (primary) hypertension; R94.39 Abnormal result of other cardiovascular function study
CPT/HCPCS: 93931; 99212

== ENCOUNTER → 2024-08-02 14:17 | Outpatient (BNV) | payer MEDICARE, SELFPAY | PROVIDERS: PCP Internal Medicine; Visit Provider Radiology Diagnostic Radiology | DX: I72.9 Aneurysm of unspecified site (principal) | CPT/HCPCS: 93931 ==

== ENCOUNTER 2024-08-15 12:51 | Outpatient (AMB) | payer MEDICARE, SELFPAY ==
[2024-08-15 12:52] VITALS: BMI 24.6
--- NOTE | 2024-08-15 12:52 | A.OFFVIS_ITS ---
Vital Signs 08/15/24 12:52 Height 5 ft 5 in Weight 148 lb BMI 24.6 Intake Visit Reasons: [employer]/cardio ref Right Radial Psuedoanuerysm Intake Note: [employer], Cardiology Referral for Right Radial psuedoanuerysm s/p Right UE arterial US 08/02/24. This happened after a cardiac cath. Pt still has a large lump that pulsates on her right wrist. Not causing any pain or discomfort Accompanied by: Self / Same As Patient Allergies No Known Allergies Allergy (Verified 08/15/24 12:59) HPI HPI [employer]/cardio ref Right Radial Psuedoanuerysm: Details: Jennifer is presenting today for a right radial artery pseudoaneurysm. She is s/p cardiac cath, appx 4-5w ago. She was found to have a marble-sized lump in the right wrist at her Cardiology follow up and was sent for an US and referred here. She denies any pain at the site. She states she noticed the lump after the procedure. She is not aware of whether it has gotten any bigger. She denies any changes in ROM of her hand. She denies any pain, numbness or tingling in her hand. She is right hand dominant. [facility] Medical History Preoperative cardiovascular examination Hypertension History of CVA (cerebrovascular accident) Adjustment disorder with depressed mood Hyponatremia Atherosclerotic cardiovascular disease Atrial flutter Preop exam for internal medicine Impacted cerumen of both ears Annual physical exam Frequency of micturition Generalized anxiety disorder Obesity (BMI 30.0-34.9) Annual physical exam Primary osteoarthritis of left knee Second degree AV block Overweight (BMI 25.0-29.9) Insomnia Tobacco abuse Hypercholesterolemia Osteoarthrosis Type 2 diabetes mellitus with hyperglycemia Surgical History History of tonsillectomy History of cholecystectomy H/O breast reconstruction History of hip replacement Family History Father Cancer Mother Medical history unknown Brother Liver cancer Sister Hypertension COPD (chronic obstructive pulmonary disease) Social History Household Members: None Housing: Apartment Do you presently have visiting nurse or other home services: No Alcohol intake: never Patient Tobacco Use Status: Former Tobacco user Tobacco use type: Cigarette Cigarettes Per Day: 2 e-Cigarette/Vaping Use: Never Used Second Hand Smoke Exposure: No Advance Directives Date on File: 10/07/22 service: No Current occupational status: retired Current occupation: Right Handed Cognitive needs: Yes (walker, Cane, Wheelchair) Hearing needs: No Vision needs: Yes (Glasses) Review of Systems Const Reports as per HPI and Denies weakness ENT Reports Normal hearing present and Denies dizziness Card Reports as per HPI, Denies chest pain, Denies chest pain at rest, Denies chest pain with activity, Denies dyspnea and Denies dyspnea on exertion Resp Reports as per HPI, Denies cough, Denies dyspnea and Denies dyspnea on exertion GI Reports as per HPI, Denies abdominal pain, Denies nausea and Denies vomiting Musc Denies numbness Skin/Breast Reports as per HPI, Denies erythema and Denies wounds Neuro Reports Normal hearing present, Denies dizziness, Denies numbness, Denies Sensory deficit (Neuro) and Denies weakness Psych Reports no additional complaints Endo Reports no additional complaints Physical Exam Vital Signs: BMI result Body Mass Index 24.6 Const General: healthy appearing and no acute distress Orientation/consciousness: patient oriented x3 HEENT Head: Yes normal to inspection Ears: hearing grossly normal bilaterally Mouth: Normal oral and palatal mucosa present Resp Effort & Inspection: normal respiratory effort and able to speak in complete sentences Auscultation: clear to auscultation bilaterally Cardio Jugular venous distension: no JVD Rate: regular rate Rhythm: regular rhythm Heart sounds: S1 normal heart sound present and S2 normal heart sound present Bruits: no abdominal aortic bruits, no carotid bruits, no femoral bruits and no renal bruits Peripheral pulses: Peripheral pulses 2+ throughout GI Inspection: Yes normal to inspection Palpation (GI): No Abdominal aortic bruit present Skin General skin exam: no rashes or lesions noted Wounds: no wounds Hair: normal Neuro General: patient oriented x3 Cranial nerves: Yes Normal hearing present Cognition (Neuro): normal cognition Gait exam (Neuro): Normal gait present Motor exam (neuro): 5/5 motor strength present throughout Sensory Exam: No Sensory deficit (Neuro) Extrem Other: Right wrist: appx 2cm round marble-like projection noted at the radial artery. Pulsatile. Not painful to palpation. Ulnar pulse strong. Full passive and active ROM of the right wrist and hand/fingers. General: Yes normal to inspection, Yes full ROM, Yes capillary refill normal and Yes normal gait Results Reviewed Results Reviewed: US radial artery 08/02/24: Pseudo aneurysm present in the anterior surface of the radial artery region of interest measuring 1.2 cm in diameter. The neck of the aneurysm is 1.7 mm. There is no blood flow during diastole therefore no evidence of arterial venous fistula Assessment & Plan Assessment & Plan (1) Pseudoaneurysm following procedure: Code(s): T81.718A - Complication of other artery following a procedure, not elsewhere classified, initial encounter; I72.9 - Aneurysm of unspecified site Category: Medical Plan: Jennifer is presenting today on a referral from Cardiology for findings of a pseudoaneurysm in the right radial artery s/p cardiac cath appx 4-5w ago. The pt states it has been there soon after the procedure. She denies any pain at the site. She has been resting her hand. She continues on Eliquis. We have ordered a follow up US to track the progression/regression of the pseudoaneurysm. There are no acute interventions needed at this point. I discussed with her the importance of rest and to not lift/move heavy things with her right hand. I discussed with her that if it opens up, there is bleeding, or any numbness/tingling/hand concerns, to reach out to us or get to the ER. We will continue to monitor. We will have her follow up with us after the US. If there are any questions or concerns, please do not hesitate to reach out to us. Orders: Orders US venous duplex UE RT 1 Week I72.9 - Aneurysm of unspecified site, T81.718A - Complication of other artery following a procedure, not elsewhere classified, initial encounter Coding Level of Care Code New Pt Level 4 (35111) Diagnoses Pseudoaneurysm following procedure T81.718A; I72.9
--- OUTSIDE RECORDS SUMMARY | 2024-08-15 15:18 | XMS_ITS | Clinical Summary ---
Author Organization [facility] Address [address] [place] [address] Phone Care Team Providers Care Split Leather Mosser Name Role Phone Physician, Pcp Unknown Primary [...] - 05/24/2024 4:22 PM EST Hospital Encounter [facility] Intermediate Care Unit [address] [place] [address] James Herron MD Japaridze, Anna, MD Traumatic rhabdomyolysis, initial encounter ([facility]) (Primary Dx); Elevated troponin Discharge Disposition: Home or Self Care from Last 3 Months Medical History Medical History Date Comments Hypertension Diabetes mellitus ([facility]) CKD (chronic kidney disease) Atrial flutter ([facility]) Social History Tobacco Use Types Packs/Day Years [...] patient's age to complete this topic Meningococcal B Vacine Aged Out No lo nger eligible based on patient's age to complete [...] AND DIFFERENTIAL STAT 05/22/2024 1:05 PM EST [facility]-74 MINUTES Routine 05/22/2024 12:11 PM EST ECG ANNOTATED 05/22/2024 from Last 3 Months Results * (ABNORMAL) POCT Glucose, blood (05/24/2024 11:52 AM EST) Only the most recent of5 resultswithin the time period is included. [facility] Glucose POCT 331(H) 70 - 100 mg/dL 05/24/2024 11:53 AM EST [facility] Blood Capillary blood specimen / Unknown 05/24/2024 11:52 AM EST 05/24/2024 11:54 AM EST us Amanda Day MD LAB POINT OF CARE TE ST DOCKED DEVICE UNSOLICITED RESULTS Final Result [facility] [address] [place] [address], [place] [phone] * (ABNORMAL) CBC auto differential (05/24/2024 6:09 AM EST) Only the most recent of3 resultswithin the time period is included. WBC 12.7(H) 4.8 - 10.8 K/mcL LAB HEMETOLOGY METHOD 05/24/2024 7:36 AM EST [facility] RBC 4.30 3.80 - 4.80 M/[facility] LAB HEMETOLOGY METHOD 05/24/2024 7:36 AM [facility] Hemoglobin 11.4(L) 11.5 - 16.0 g/dL LAB HEMETOLOGY METHOD 05/24/2024 7:36 AM [facility] Hematocrit 35.6 35.0 - 47.0 % LAB HEMETOLOGY METHOD 05/24/2024 7:36 AM [facility] MCV 82.2 79.0 - 98.0 FL LAB HEMETOLOGY METHOD 05/24/2024 7:36 AM [facility] MCH 26.3(L) 27.0 - 32.0 pcg LAB HEMETOLOGY METHOD 05/24/2024 7:36 AM [facility] MCHC 32.0 32.0 - 37.0 g/dL LAB HEMETOLOGY METHOD 05/24/2024 7:36 AM [facility] RDW 13.9 11.0 - 15.0 % LAB HEMETOLOGY METHOD 05/24/2024 7:36 AM [facility] Platelets 343 130 - 400 K/mcL LAB HEMETOLOGY METHOD 05/24/2024 7:36 AM [facility] MPV 9.6 7.0 - 11.0 FL LAB HEMETOLOGY METHOD 05/24/2024 7:36 AM [facility] NRBC 0.0 <1.0 % LAB HEMETOLOGY METHOD 05/24/2024 7:36 AM [facility] NRBC Absolute 0.00 <0.10 K/mcL LAB HEMETOLOGY METHOD 05/24/2024 7:36 AM [facility] Neutrophils Relative 73.0 % LAB HEMETOLOGY METHOD 05/24/2024 7:36 AM [facility] Lymphocytes Relative 18.4 % LAB HEMETOLOGY METHOD 05/24/2024 7:36 AM [facility] Monocytes Relative 5.8 % LAB HEMETOLOGY METHOD 05/24/2024 7:36 AM [facility] Eosinophils Relative 2.0 % LAB HEMETOLOGY METHOD 05/24/2024 7:36 AM [facility] Basophils Relative 0.5 % LAB HEMETOLOGY METHOD 05/24/2024 7:36 AM [facility] Immature Granulocytes Relative 0.3 % LAB HEMETOLOGY METHOD 05/24/2024 7:36 AM [facility] Neutrophils Absolute 9.25(H) 1.50 - 7.00 K/mcL LAB HEMETOLOGY METHOD 05/24/2024 7:36 AM [facility] Lymphocytes Absolute 2.34 1.00 - 5.00 K/mcL LAB HEMETOLOGY METHOD 05/24/2024 7:36 AM [facility] Monocytes Absolute 0.74 0.20 - 1.00 K/mcL LAB HEMETOLOGY METHOD 05/24/2024 7:36 AM EST [facility] Eosinophils Absolute 0.26 0.00 - 0.50 K/mcL LAB HEMETOLOGY METHOD 05/24/2024 7:36 AM [facility] Basophils Absolute 0.06 0.00 - 0.20 K/mcL LAB HEMETOLOGY METHOD 05/24/2024 7:36 AM [facility] Immature Granulocytes Absolute 0.04(H) 0.00 - 0.03 K/mcL LAB HEMETOLOGY METHOD 05/24/2024 7:36 AM [facility] Blood Venous blood specimen / Unknown Venipuncture / Unknown 05/24/2024 6:09 AM EST 05/24/2024 7:25 AM EST us Amanda Day MD LAB BLOOD ORDERABLES Final Res ult [facility] [address] [place] [address], [place] [phone] * (ABNORMAL) Creatine kinase and CKMB (05/24/2024 6:09 AM EST) Only the most recent of2 resultswithin the time period is included. [facility] Total CK 574(H) 22 - 269 unit/L LAB CHEMISTRY METHOD 05/24/2024 8:10 AM EST [facility] CK-MB 4.1(H) 1.0 - 3.6 ng/mL LAB CHEMISTRY METHOD 05/24/2024 8:10 AM [facility] CK-MB Index 0.0 0.0 - 5.0 LAB CHEMISTRY METHOD 05/24/2024 8:10 AM [facility] Blood Venous blood specimen / Unknown Venipuncture / Unknown 05/24/2024 6:09 AM EST 05/24/2024 7:26 AM EST us Amanda Day MD LAB BLOOD ORDERABLES Final Res ult [facility] [address] [place] [address], [place] [phone] * (ABNORMAL) Basic metabolic panel (05/24/2024 6:09 AM EST) Only the most recent of3 resultswithin the time period is included. [facility] Sodium 139 133 - 145 mmol/L LAB CHEMISTRY METHOD 05/24/2024 8:07 AM [facility] Potassium 4.1 3.5 - 5.5 mmol/L LAB CHEMISTRY METHOD 05/24/2024 8:07 AM [facility] Chloride 107 96 - 110 mmol/L LAB CHEMISTRY METHOD 05/24/2024 8:07 AM [facility] CO2 23 21 - 32 mmol/L LAB CHEMISTRY METHOD 05/24/2024 8:07 AM [facility] Anion Gap 9 3 - 11 LAB CHEMISTRY METHOD 05/24/2024 8:07 AM [facility] Glucose 242(H) 70 - 100 mg/dL LAB CHEMISTRY METHOD 05/24/2024 8:07 AM [facility] BUN 21 5 - 25 mg/dL LAB CHEMISTRY METHOD 05/24/2024 8:07 AM [facility] Creatinine 0.77 0.50 - 1.10 mg/dL LAB CHEMISTRY METHOD 05/24/2024 8:07 AM [facility] eGFR 79 >=60 mL/min/1. 73m2 LAB CHEMISTRY METHOD 05/24/2024 8:07 AM [facility] Comment:Calculation based on the??Chronic Kidney Disease Epidemiology Collaboration (CKD-EPI) equation refit??without adjustment for race. BUN/Creatinine Ratio 27.3 LAB CHEMISTRY METHOD 05/24/2024 8:07 AM [facility] Calcium 8.6 8.5 - 10.5 mg/dL LAB CHEMISTRY METHOD 05/24/2024 8:07 AM [facility] Blood Venous blood specimen / Unknown Venipuncture / Unknown 05/24/2024 6:09 AM EST 05/24/2024 7:26 AM EST us Amanda Day MD LAB BLOOD ORDERABLES Final Res ult [facility] [address] [place] [address], * (ABNORMAL) TRANSTHORACIC ECHOCARDIOGRAM (TTE) COMPLETE W/ [...] 3.1 cm2 CV PACS Left Atrium Minor Bethel 6.0 cm CV PACS Left Atrium Major Bethel 6.5 cm CV PACS LA Area Sys [...] mg/dL LAB CHEMISTRY METHOD 05/23/2024 8:04 AM [facility] Triglycerides 117 0 - 150 mg/dL LAB CHEMISTRY METHOD 05/23/2024 8:04 AM [facility] HDL 54 >=40 mg/dL LAB CHEMISTRY METHOD 05/23/2024 8:04 AM [facility] LDL Calculated 30 0 - 100 mg/dL LAB CHEMISTRY METHOD 05/23/2024 8:04 AM [facility] VLDL Cholesterol Matthew 23.4 mg/dL LAB CHEMISTRY METHOD 05/23/2024 8:04 AM [facility] Non HDL Chol. (LDL+VLDL) 53 <145 mg/dL LAB CHEMISTRY METHOD 05/23/2024 8:04 AM [facility] Chol/HDL Ratio 2.0 0.0 - 4.4 LAB CHEMISTRY METHOD 05/23/2024 8:04 AM [facility] Blood Venous blood specimen / Unknown Venipuncture / Unknown 05/23/2024 6:15 AM EST 05/23/2024 7:15 AM EST Pedro Luis DEAN LAB BLOOD ORDERABLES Final Res ult [facility] [address] [place] [address], [place] [phone] * Magnesium (05/23/2024 6:15 AM EST) Only the most recent of2 resultswithin the time period is included. [facility] Magnesium 2.5 1.9 - 2.6 mg/dL LAB CHEMISTRY METHOD 05/23/2024 8:05 AM EST [facility] Blood Venous blood specimen / Unknown Venipuncture / Unknown 05/23/2024 6:15 AM EST 05/23/2024 7:15 AM EST us James Herron MD LAB BLOOD ORDERABLES Final Result Performing Organization Address [facility]/ZIP Co de Phone Number [facility] [address] [place] [address], * (ABNORMAL) Troponin I high sensitivity (05/22/2024 11:30 PM EST) Only the most recent of4 resultswithin the time period is included. [facility] High Sensitivity Troponin I 1,460(HH) <=54 ng/L [...] BLOOD ORDERABLES Final Result Performing Organization Address [facility]/ZIP Co de Phone Number [facility] [address] [place] [address], [place] [phone] * (ABNORMAL) Procalcitonin (05/22/2024 10:01 PM EST) Procalcitonin 0.68(H) <=0.16 ng/mL LAB CHEMISTRY METHOD [...] ORDERABLES Final Result [facility] [address] [place] [address], * Blood Culture, Peripheral Draw #1 (05/22/2024 10:01 PM EST) Culture, Blood No growth at 5 days 05/27/2024 11:01 PM EST [facility] Blood Venous blood specimen / Unknown Venipuncture / Unknown 05/22/2024 10:01 PM EST 05/22/2024 10:30 PM EST James Herron MD LAB MICROBIOLOGY - GENERAL ORDERABLES Final Result [facility] [address] [place] [address], [place] [phone] * Phosphorus (05/22/2024 10:01 PM EST) Pathologist [facility] Phosphorus 3.4 2.5 - 4.5 mg/dL LAB CHEMISTRY METHOD 05/22/2024 11:00 PM EST [facility] Blood Venous blood specimen / Unknown Venipuncture / Unknown 05/22/2024 10:01 PM EST 05/22/2024 10:29 PM EST James Herron MD LAB BLOOD ORDERABLES Final Result Performing Organization Address [facility] [[email or web address]] Co de Phone Number [facility] [address] [place] [address], * Lactate (05/22/2024 10:01 PM EST) Only the most recent of2 resultswithin the time period is included. [facility] Lactate 1.7 0.4 - 2.0 mmol/L LAB CHEMISTRY METHOD 05/22/2024 10:59 PM EST [facility] Blood Venous blood specimen / Unknown Venipuncture / Unknown 05/22/2024 10:01 PM EST 05/22/2024 10:31 PM EST James Herron MD LAB BLOOD ORDERABLES Final Result Performing Organization Address City/[facility]/ZIP Co de Phone Number [facility] [address] [place] [address], [place] [phone] * (ABNORMAL) Hepatic function panel (05/22/2024 10:01 PM EST) Pathologist [facility] Total Protein 6.6 6.0 - 8.0 g/dL LAB CHEMISTRY METHOD 05/22/2024 11:00 PM EST [facility] Albumin 3.2 3.2 - 5.0 g/dL LAB CHEMISTRY METHOD 05/22/2024 11:00 PM [facility] Total Bilirubin 0.6 0.0 - 1.4 mg/dL LAB CHEMISTRY METHOD 05/22/2024 11:00 PM [facility] Bilirubin, Direct 0.3 0.0 - 0.3 mg/dL LAB CHEMISTRY METHOD 05/22/2024 11:00 PM [facility] Bilirubin, Indirect 0.3 0.0 - 1.1 mg/dL LAB CHEMISTRY METHOD 05/22/2024 11:00 PM [facility] ALT (SGPT) 44 10 - 60 unit/L LAB CHEMISTRY METHOD 05/22/2024 11:00 PM [facility] AST (SGOT) 65(H) 10 - 42 unit/L LAB CHEMISTRY METHOD 05/22/2024 11:00 PM [facility] Alkaline Phosphatase 88 42 - 121 unit/L LAB CHEMISTRY METHOD 05/22/2024 11:00 PM [facility] Blood Venous blood specimen / Unknown Venipuncture / Unknown 05/22/2024 10:01 PM EST 05/22/2024 10:29 PM EST us James Herron MD LAB BLOOD ORDERABLES Final Result [facility] [address] [place] [address], * ECG 12 lead (05/22/2024 8:22 PM EST) Only the most recent of2 resultswithin the time period is included. Ventricular Rate ECG 68 BPM GEMUSE Atrial Rate 264 BPM [facility]EM[facility] QRS Duration 86 ms GEMUSE Q-T Interval 420 ms GEMUSE QTc 447 ms GEMUSE R Bethel 64 degrees GEMUSE T Bethel 101 degrees GEMUSE ECG Interpretation Atrial flutter with 4:1 A-V conduction Anteroseptal infarct (cited on or before 22-MAY-2024) Abnormal ECG When compared with ECG of 22-MAY-2024 13:48, No significant change was found Confirmed by MD Jaguar, Kewadin ([id number]) on 05/23/2024 2:44:22 PM GEMUSE 05/22/2024 8:22 PM EST 05/23/2024 2:44 PM EST us Karen DEAN ECG ORDERABLES Final Result GEMUSE * CT [...] Elam MD on 05/22/2024 18:32:[address] PROCEDURES Final Result * (ABNORMAL) Urinalysis with reflex microscopic and culture (05/22/2024 5:15 PM EST) Specific [place] Urine 1.030 1.003 - 1.030 LAB URINALYSIS - AUTOMATED METHOD 05/22/2024 6:35 PM [facility] pH, Urine 5.5 5.0 - 8.0 pH LAB URINALYSIS - AUTOMATED METHOD 05/22/2024 6:35 PM [facility] Leukocytes, Urine Negative Negative LAB URINALYSIS - AUTOMATED METHOD 05/22/2024 6:35 PM [facility] Nitrite, Urine Negative Negative LAB URINALYSIS - AUTOMATED METHOD 05/22/2024 6:35 PM [facility] Protein, Urine 100(A) <=Trace mg/dL LAB URINALYSIS - AUTOMATED METHOD 05/22/2024 6:35 PM [facility] Glucose, Urine >=1000(A) Negative mg/dL LAB URINALYSIS - AUTOMATED METHOD 05/22/2024 6:35 PM [facility] Ketones, Urine 15(A) Negative mg/dL LAB URINALYSIS - AUTOMATED METHOD 05/22/2024 6:35 PM [facility] Urobilinogen , Urine 0.2 0.2 - 1.0 mg/dL LAB URINALYSIS - AUTOMATED METHOD 05/22/2024 6:35 PM [facility] Bilirubin, Urine Negative Negative LAB URINALYSIS - AUTOMATED METHOD 05/22/2024 6:35 PM [facility] Blood, Urine Large(A) Negative LAB URINALYSIS - AUTOMATED METHOD 05/22/2024 6:35 PM [facility] RBC, Urine 3.4 0 - 4 /HPF LAB URINALYSIS - AUTOMATED METHOD 05/22/2024 6:35 PM [facility] WBC, Urine 2.7 0 - 4 /HPF LAB URINALYSIS - AUTOMATED METHOD 05/22/2024 6:35 PM [facility] Squamous Epithelial, Urine >100(H) 0 - 60 /LPF LAB URINALYSIS - AUTOMATED METHOD 05/22/2024 6:35 PM [facility] Bacteria, Urine Few(A) Negative /HPF LAB URINALYSIS - AUTOMATED METHOD 05/22/2024 6:35 PM [facility] Hyaline Casts, Urine 1.7 0 - 3 /LPF LAB URINALYSIS - AUTOMATED METHOD 05/22/2024 6:35 PM [facility] Yeast, Urine Present(A) None /HPF LAB URINALYSIS - AUTOMATED METHOD 05/22/2024 6:35 PM [facility] Urine Urine specimen obtained by clean catch procedure / Unknown Non-blood Collection / Unknown 05/22/2024 5:15 PM EST 05/22/2024 6:04 PM EST [facility] Premyamil ME LAB URINE ORDERABLES Final Res ult Performing Organization Address City/[facility]/ZIP Co de Phone Number [facility] [address] [place] [address], * Ty urine culture tube (05/22/2024 5:15 PM EST) Pathologist [facility] Extra Tube Hold for add-ons. 05/22/2024 8:01 PM EST [facility] Comment:Auto resulted. Urine Urine specimen obtained by clean catch procedure / Unknown Non-blood Collection / Unknown 05/22/2024 5:15 PM EST 05/22/2024 6:04 PM EST [facility] Rona ME LAB URINE ORDERABLES Final Res ult Performing Organization Address [facility] [[email or web address]] Co de Phone Number [facility] [address] [place] [address], * (ABNORMAL) C-reactive protein (05/22/2024 4:05 PM EST) [facility] C-Reactive Protein 9.02(H) <=0.50 mg/dL LAB CHEMISTRY METHOD 05/22/2024 8:59 PM EST [facility] Blood Venous blood specimen / Unknown Venipuncture / Unknown 05/22/2024 4:05 PM EST 05/22/2024 4:17 PM EST James Herron MD LAB BLOOD ORDERABLES Final Result Performing Organization Address City/[facility]/ZIP Co de Phone Number [facility] [address] [place] [address], [place] [phone] * (ABNORMAL) Cardiac Enzymes - CPK (05/22/2024 4:05 PM EST) [facility] Total CK 2,191(H) 22 - 269 unit/L LAB CHEMISTRY METHOD 05/22/2024 5:02 PM EST [facility] ([facility] Comment:Results verified by repeat testing Blood Venous blood specimen / Unknown Venipuncture / Unknown 05/22/2024 4:05 PM EST 05/22/2024 4:17 PM EST us Karen Draperjanayyamil PA LAB BLOOD ORDERABLES Final Res ult [facility] ([facility]) [facility] [address] [place] [address], [place] [phone] * CT Cervical Spine wo Contrast (05/22/2024 [...] Signed Date: 05/22/2024 14:58 ET Workstation ID: [id number] Transcribed By: Self Edit Transcribed Date: 05/22/2024 [...] Signed Date: 05/22/2024 14:58 ET Workstation ID: [id number] Transcribed By: Self Edit Transcribed Date: 05/22/2024 14:51 ET Karen Draperbessy [facility] PROCEDURES Final Result * CT Head [...] Signed Date: 05/22/2024 14:35 ET Workstation ID: [id number] Transcribed By: Self Edit Transcribed Date: 05/22/2024 [...] Signed Date: 05/22/2024 14:35 ET Workstation ID: [id number] Transcribed By: Self Edit Transcribed Date: 05/22/2024 14:31 ET Karen DEAN [facility] PROCEDURES Final Result * (ABNORMAL) Manual differential (05/22/2024 1:05 PM EST) Neutrophils % 83.0 % LAB HEMETOLOGY METHOD 05/22/2024 1:59 PM EST [facility] Bands % 2.0 % LAB HEMETOLOGY METHOD 05/22/2024 1:59 PM EST [facility] Lymphocytes % 6.0 % LAB HEMETOLOGY METHOD 05/22/2024 1:59 PM EST [facility] Monocytes % 10.0 % LAB HEMETOLOGY METHOD 05/22/2024 1:59 PM [facility] Eosinophils % 0.0 % LAB HEMETOLOGY METHOD 05/22/2024 1:59 PM [facility] Basophils % 0.0 % LAB HEMETOLOGY METHOD 05/22/2024 1:59 PM [facility] Neutrophils Absolute Manual 17.26(H) 1.50 - 7.00 K/mcL LAB HEMETOLOGY METHOD 05/22/2024 1:59 PM [facility] Bands Absolute Manual 0.42(H) 0.00 - 0.00 K/mcL LAB HEMETOLOGY METHOD 05/22/2024 1:59 PM [facility] Lymphocytes Absolute 1.25 1.00 - 5.00 K/mcL LAB HEMETOLOGY METHOD 05/22/2024 1:59 PM [facility] Monocytes Absolute Manual 2.08(H) 0.20 - 1.00 K/mcL LAB HEMETOLOGY METHOD 05/22/2024 1:59 PM [facility] Eosinophils Absolute Manual 0.00 0.00 - 0.50 K/mcL LAB HEMETOLOGY METHOD 05/22/2024 1:59 PM [facility] Basophils Absolute Manual 0.00 0.00 - 0.20 K/mcL LAB HEMETOLOGY METHOD 05/22/2024 1:59 PM [facility] Rbc Morphology Consistent with indices Consistent with indices, Normal for LAB HEMETOLOGY METHOD 05/22/2024 1:59 PM [facility] Platelet Morphology - WAM See Note(A) Normal LAB HEMETOLOGY METHOD 05/22/2024 1:59 PM [facility] Comment:PLT: Normal Blood Venous blood specimen / Unknown Venipuncture / Unknown 05/22/2024 1:05 PM EST 05/22/2024 1:11 PM EST us Karen DEAN LAB BLOOD ORDERABLES Final Res ult Performing Organization Address [facility] [[email or web address]] Co de Phone Number [facility] [address] [place] [address], [place] [phone] * (ABNORMAL) Hemoglobin A1c (05/22/2024 1:05 PM [...] DEAN LAB BLOOD ORDERABLES Final Res ult Performing Organization Address [facility] [[email or web address]] Co de Phone Number [facility] [address] [place] [address], [place] [phone] * [facility] 30-74 MINUTES (05/22/2024 12:11 PM [...] Result * ECG-Annotated (05/22/2024) us Provider Onbase MD ECG ORDERABLES Final Result from Last 3 [...] currently active code status orders. Care Teams Split Leather Mosser Relationship Specialty Start Date End Date Physician, Pcp Unknown PCP - General 05/22/24
--- OUTSIDE RECORDS SUMMARY | 2024-08-15 15:18 | XMS_ITS ---
Author Organization [facility] Address [address] [place] [address] Care Team Providers Care Director Of Physician Practices Name Role Phone Nayan Pavon Primary Care Provider UnavailEileen Madsen [phone] Encounters Encounter Location Date Provider Diagnosis [facility] [address] [place] [address] 03/18/2024 Eileen Yi Plan Of Treatment No Information Progress Notes * Jennifer BALDERASDOB:1944 (79 yo F)Acc No.[id number]:03/18/2024 Progress Notes Patient:?Jennifer BALDERAS Provider:?Eileen Yi DPM :1945???Age:79 Y???Sex:Female D ate:03/18/2024 Address:[address] [place], [place] [id number] Pcp:Nayan Pavon Subjective: * Chief Complaints: * ??? * Medical History:? Objective: * Vitals:? Assessment: Plan: * Treatment: * Images: * The named appointment provid er may or may not be the originator of this progress note, and it is not deemed complete until electronically signed by the appointment provider. Sign off status: Pending * Provider:?Eileen Yi DPM Date:?2023 Generated for Violette bishop/Nan/Isabelleitting on:?08/15/2024 03:18 PM EST
--- OUTSIDE RECORDS SUMMARY | 2024-08-15 15:18 | XMS_ITS | Patient Health Record ---
Author Organization [facility] Address [address] [place] [address] Care Team Providers Care Physical Optics Teacher Name Role Phone Nayan Pavon Primary Care Provider Eilene Ruth [phone] Reason For Referral No Information Encounters Encounter Location Date Provider Diagnosis [facility] [address] [place] [address] 12/06/2023 Eileen Yi [facility] [address] [place] [address] 12/12/2023 Eileen Yi Plan Of Treatment No Information Insurance Providers Payer Name Payer Address Payer Phone Subscriber Number Group Number Insured Name Patient Relationship to Insured Coverage Start Date Coverage End Date [facility] [address] [place] [address] [id number] Jennifer Balderas Self - patient is the insured
--- OUTSIDE RECORDS SUMMARY | 2024-08-15 15:18 | XMS_ITS ---
Author Organization [facility] Address [address] [place] [address] Care Team Providers Care Deicer Inspector Electric Name Role Phone Librado Katlinjameel Primary Care Provider Unavailabl e Black, Eileen Unavailable [phone] REASON FOR VISIT cx appt 03/18/24 Encounters Encounter Location Date Provider Diagnosis [address] [address] 12/12/2023 Eileen Black Plan Of Treatment No Information Progress Notes * Jennifer HERNANDEZDOB:1944 (78 yo F)Acc No.[id number]:12/12/2023 Patient:?Jennifer Hernandez :1945???Age:78 Y???Sex:Female Address:[address] [place] [address] * true * Date:? Generated for Violette bishop/Nan/eTransmitting on:?08/15/2024 03:18 PM EST
--- OUTSIDE RECORDS SUMMARY | 2024-08-15 15:18 | XMS_ITS | Clinical Summary ---
Author Organization [facility] Facility Address [address] [address] Care Team Providers Care Grey Washer Name Role Phone Nayan Pavon MD Primary Care Provider [phone] Social History Tobacco Use Types Packs/Day Years [...] PCV) 011 Influenza Vaccine (#1) 2024 Insurance [facility] Care Teams Grey Washer Relationship Specialty Start Date End Date Nayan Pavon MD [facility] [address] [place], [place] PCP - General Internal Medicine 06/30/22
--- OUTSIDE RECORDS SUMMARY | 2024-08-15 15:18 | XMS_ITS | Patient Health Record ---
Author Organization [facility] Address [address] [place] [address] Care Team Providers Care Christmas Tree Contractor Name Role Phone Po Nayan AKHTAR Primary Care Provider Alvaro Grimes Unavailable [phone] REASON FOR REFERRAL No Information MEDICATIONS Medication [...] W/U Status Risk SNOMED Code Notes Problem Encounter for screening for malignant neoplasm of colon (Z12.11) Active confirmed 923920692 Problem Change in bowel function (R19.4) Active confirmed 952753188 Problem Diarrhea, unspecified type (R19.7) Active confirmed 90853929 PLAN OF TREATMENT Future Test Test Name Order Date COLONOSCOPY 12/08/2016 Insurance Providers Payer Name Payer Address Payer Phone Subscriber Number Group Number Insured Name Patient Relationship to Insured Coverage Start Date Coverage End Date [facility] [address] [facility] [place] [phone] [id number] ROSA DIAZ Self - patient is the insured MEDICAL (GENERAL) HISTORY Medical History History ICD Code Screening colonoscopy 2005--neg. except fpor hyperplastic polyps, diverticulosis, and internal hemorroids NIDDM Hypertension Hyperlipidemia Anxiety She describes a heart block on her EKG Denies [place], CVA,Lung disease,renal diseas e Osteoarthosis Neg. colonoscopy in 12/2016. Biopsies neg for microscopic colitis Neg. labs for celiac disease in 2017. Diarrhea--much better on the cholestyram ine Surgical History Surgery Date(Month/Year) Breast reduction Left hip replacement approx 2010 [facility]
--- OUTSIDE RECORDS SUMMARY | 2024-08-15 15:18 | XMS_ITS ---
Author Organization [facility] Address [address] [place] [address] Care Team Providers Care Smoke Control Supervisor Name Role Phone Librado Aiyanajoselin Primary Care Provider Unavailabl e Black, Eileen Unavailable [phone] REASON FOR VISIT SHELF DRIER OPERATOR Encounters Encounter Location Date Provider [facility] [address] [place] [address] 12/06/2023 Eileen Black Plan Of Treatment No Information Progress Notes * SHERRIE PaulineadrienneDOB:1944 (78 yo F)Acc No.[id number]:12/06/2023 Patient:?Jennifer Balderas :1945???Age:78 Y???Sex:Female Address:[address] [place] [address] * true * Date:? Generated for Violette bishop/Nan/eTransmitting on:?08/15/2024 03:18 PM EST
== END 2024-08-15 13:33 | disposition home or self-care (01) ==
LOC: HO.HVS 12:51
PROVIDERS: PCP Internal Medicine; Visit Provider Physician Assistant Surgical
DX: T81.718A Complication of other artery following a procedure, not elsewhere classified, initial encounter (principal); I72.9 Aneurysm of unspecified site
CPT/HCPCS: 99204

== ENCOUNTER → 2024-08-15 12:51 | Outpatient (BNVA) | payer MEDICARE, SELFPAY | PROVIDERS: PCP Internal Medicine; Visit Provider Physician Assistant Surgical | DX: T81.718A Complication of other artery following a procedure, not elsewhere classified, initial encounter (principal); I72.9 Aneurysm of unspecified site | CPT/HCPCS: 99202 ==

== ENCOUNTER 2024-09-04 13:01 | Outpatient (REF) | payer MEDICARE, SELFPAY ==
--- NOTE | ~2024-09-04 | US_ITS ---
CLINICAL HISTORY: T81.718A - Complication of other artery following a procedure, not elsew... Examination: Limited ultrasound of the right radial artery Indication: Pseudoaneurysm Comparison: 08/02/2024 Findings: The previously 13 x 8 x 12 pseudoaneurysm currently measures 17 x 14 x 20 mm. Impression: Increased right radial artery pseudoaneurysm size. This document has been electronically signed by: Randal Sánchez MD on 09/05/2024 18:32:37
== END 2024-09-04 13:02 | disposition home or self-care (01) ==
LOC: HO.US 13:01
PROVIDERS: PCP Internal Medicine; Visit Provider Physician Assistant Surgical
DX: T81.718D Complication of other artery following a procedure, not elsewhere classified, subsequent encounter (principal); I72.9 Aneurysm of unspecified site
CPT/HCPCS: 93931

== ENCOUNTER → 2024-09-04 13:02 | Outpatient (BNV) | payer MEDICARE, SELFPAY | PROVIDERS: PCP Internal Medicine; Visit Provider Radiology Vascular & Interventional Radiology | DX: I72.1 Aneurysm of artery of upper extremity (principal) | CPT/HCPCS: 93931 ==

== ENCOUNTER 2024-09-12 12:51 | Outpatient (AMB) | payer MEDICARE, SELFPAY ==
--- NOTE | 2024-09-12 12:59 | A.OFFVIS_ITS ---
Vital Signs 09/12/24 13:02 Height 5 ft 5 in Weight 148 lb BMI 24.6 Intake Visit Reasons: follow up Arterial US radial psuedoaneurysm Intake Note: follow up Right UE Art US for Right Radial psuedoaneurysm 09/04/24. Pt states not causing any pain Manager Of Sales Required: No Accompanied by: Self / Same As Patient Allergies No Known Allergies Allergy (Verified 09/12/24 13:03) HPI HPI follow up Arterial US radial psuedoaneurysm: Details: Complex 79-year-old female presents for follow-up regarding right radial artery pseudo aneurysm. We have had quite a challenge in following up with her as she has failed to follow up on several occasions. 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 At the current time her hand is well perfused no issues good motor and sensation she now presents for routine follow-up with repeat ultrasound [facility] Medical History Preoperative cardiovascular examination Hypertension History of CVA (cerebrovascular accident) Adjustment disorder with depressed mood Hyponatremia Atherosclerotic cardiovascular disease Atrial flutter Preop exam for internal medicine Impacted cerumen of both ears Annual physical exam Frequency of micturition Generalized anxiety disorder Obesity (BMI 30.0-34.9) Annual physical exam Primary osteoarthritis of left knee Second degree AV block Overweight (BMI 25.0-29.9) Insomnia Tobacco abuse Hypercholesterolemia Osteoarthrosis Type 2 diabetes mellitus with hyperglycemia Surgical History History of tonsillectomy History of cholecystectomy H/O breast reconstruction History of hip replacement Family History Father Cancer Mother Medical history unknown Brother Liver cancer Sister Hypertension COPD (chronic obstructive pulmonary disease) Social History Household Members: None Housing: Apartment Do you presently have visiting nurse or other home services: No Alcohol intake: never Patient Tobacco Use Status: Former Tobacco user Tobacco use type: Cigarette Cigarettes Per Day: 2 e-Cigarette/Vaping Use: Never Used Second Hand Smoke Exposure: No Advance Directives Date on File: 10/07/22 service: No Current occupational status: retired Current occupation: Right Handed Cognitive needs: Yes (walker, Cane, Wheelchair) Hearing needs: No Vision needs: Yes (Glasses) Review of Systems Const All systems reviewed & are unremarkable except as noted in HPI and below Reports no additional complaints ENT Reports Normal hearing present Card Denies chest pain, Denies chest pain at rest, Denies chest pain with activity and Denies pedal edema Resp Denies cough GI Denies abdominal pain Musc Denies abnormal gait, Denies muscle cramps and Denies radiating pain into limb Skin/Breast Denies skin ulcer and Denies wounds Neuro Reports Normal hearing present and Denies abnormal gait Psych Reports no additional complaints Physical Exam Vital Signs: BMI result Body Mass Index 24.6 Const General: cooperative, healthy appearing and comfortable Orientation/consciousness: oriented to person, oriented to place and oriented to time HEENT Head: Yes normal to inspection Neck Neck: Yes normal visual inspection Carotids: no bruits Chest Chest palpation & inspection: normal inspection of the chest Resp Effort & Inspection: normal respiratory effort and able to speak in complete sentences Auscultation: clear to auscultation bilaterally, no crackles, no rales, no rhonchi and no wheezes Cardio Other: Prominent right radial artery pulse with a proximally a 2 cm overlying lump Rate: regular rate Rhythm: regular rhythm Heart sounds: S1 normal heart sound present and S2 normal heart sound present Bruits: no carotid bruits Peripheral pulses: Peripheral pulses 2+ throughout GI Inspection: Yes normal to inspection Skin Wounds: no wounds Hair: normal Neuro General: oriented to person, oriented to place and oriented to time Cranial nerves: Yes CN's II-XII intact bilaterally and Yes Normal hearing present Cognition (Neuro): normal cognition Motor exam (neuro): 5/5 motor strength present throughout Extrem Other: venous exam: No significant superficial varicosities or spider telangiectasias, minimal edema General: No clubbing, No cyanosis and No edema Psych Appearance: grossly normal Mental Status: mental status grossly normal Speech and movement: Normal speech and movement present Results Reviewed Results Reviewed: Ultrasound dated 09/04/2024 was reviewed and demonstrates an increase in size. Assessment & Plan Assessment & Plan (1) Pseudoaneurysm following procedure: Code(s): T81.718A - Complication of other artery following a procedure, not elsewhere classified, initial encounter; I72.9 - Aneurysm of unspecified site Category: Medical Plan: In short patient has a right radial artery pseudo aneurysm. Unfortunately this continues to increase in size and due to the overall size will require surgical repair. Patient will require repair of right radial artery. Risks benefits complications of the procedure were discussed in detail with the patient. She understood and consented would like to move forward. Thank you for allowing us to participate in her care. Coding Level of Care Code Est Pt Level 4 (11569) Diagnoses Pseudoaneurysm following procedure T81.718A; I72.9
[2024-09-12 13:02] VITALS: BMI 24.6
--- OUTSIDE RECORDS SUMMARY | 2024-09-12 15:53 | XMS_ITS | Clinical Summary ---
Author Organization [facility] Address [address] [address] Care Team Providers Care Musician Instrumental Name Role Phone Nayan Pavon MD Primary Care Provider [phone] Social History Tobacco Use Types Packs/Day Years [...] Influenza Vaccine (#1) 2024 Insurance [facility] Care Teams Musician Instrumental Relationship Specialty Start Date End Date Nayan Pavon MD [facility] [address] [place], [place] PCP - General Internal Medicine 06/30/22
--- OUTSIDE RECORDS SUMMARY | 2024-09-12 15:53 | XMS_ITS ---
Author Organization [facility] Address [address] [place] [address] Care Team Providers Care Teachers' Assistant Name Role Phone Librado Katlinjameel Primary Care Provider Unavailabl e Black, Eileen Unavailable [phone] REASON FOR VISIT cx appt 03/18/24 Encounters Encounter Location Date Provider Diagnosis [address] [address] 12/12/2023 Eileen Black Plan Of Treatment No Information Progress Notes * Jennifer BALDERASDOB:1944 (78 yo F)Acc No.[id number]:12/12/2023 Patient:?Jennifer Balderas :1945???Age:78 Y???Sex:Female Address:[address] [place] [address] * true * Date:? Generated for Violette bishop/Nan/eTransmitting on:?09/12/2024 03:53 PM EDT
--- OUTSIDE RECORDS SUMMARY | 2024-09-12 15:53 | XMS_ITS ---
Author Organization [facility] Care Team Providers Care Ad Trafficker Name Role Phone Clifton Matamoros Unavailable Unavailable Kathy Garcia Unavailable Unavailable Nancy Ocampo Unavailable Unavailable Allergies and adverse reactions No Known Allergies Care Team Name Role Address Phone Organization Dates Clifton Matamoros PCP [address], [address], [place] (Office): : [facility] 07/16/2022 - 07/29/2022 Kathy Garcia Attending Physician [address], [address], [facility] (Office): : [facility] 07/16/2022 - 07/29/2022 Nancy Ocampo Attending Physician [address] [place] [address], [address], [place] (Office): [facility] 07/16/2022 - 07/29/2022 Goals Section Description Status Target Date I will be at reduced risk fo r adverse drug reactions through the review date. Active 08/04/2022 I will be at reduced risk fo r complications of self care performance deficit and impaired mobility daily through the review date. Active 08/04/2022 I will be at reduced risk fo r new or worsened impaired skin integrity daily through the review date. Active 08/04/2022 I will be free from discomfo rt or adverse side effects related to anti-anxiety therapy through the review date. Active 08/04/19 I will be free from discomfo rt or adverse side effects related to anti-depressant therapy through the review date. Active 08/04 I will be free of fall relat ed injury through the next review date. Active 08/04/2022 I will have no signs or symp toms of complications from dialysis through the next review date. Active 08/04/2022 I will maintain adequate nut ritional status as evidenced by maintaining weight within (X)% of (SPECIFY BASELINE), no s/sx of malnutrition, and consuming at least (X)% of at least (X) meals daily through review date. Active 08/04/2022 I will not have skin breakdo wn due to incontinence through the review date. Active 08/04/2022 I will show effectiveness of medication use as evidenced by a reduction in my behavior/mood symptoms by the review date. Active 08/04/2022 I will show effectiveness of medication use as evidenced by a reduction in my behavior/mood symptoms by the review date. Active 08/04/2022 The resident's advance direc tives are in effect and their wishes will be carried out through the next review. Active Immunizations Immunization Status Vaccine Details Vaccine Code CodeSystem Date Notes Influenza completed Influenza, split virus, trivalent, injectable, contains preservative 141 CVX created date: 07/15/2022 administer ed date: 05/24/2022 TB 1 Step Mantoux (PPD) completed tuberculin skin test; unspecified formulation lotNumber: [id number] expiry: 11/17/2024 Mfg: [employer] Given 0.1 ml Right Forearm intradermally 98 CVX created date: 07/16/2022 consent date: 07/15/2022 administer ed date: 07/16/2022 Educated by tito on 07/15/2022 PPSV23 (Previous Pneumococcal Polysaccharide)V acckevin completed pneumococcal polysaccharide vaccine, 23 valent 33 CVX created date: 07/19/2022 administer ed date: 11/09/2021 Tdap (Tetanus, Diphtheria, Pertussis) completed tetanus toxoid, reduced diphtheria toxoid, and acellular pertussis vaccine, adsorbed 115 CVX created date: 07/15/2022 administer ed date: 09/06/2017 Moderna Covid-19 Booster (SARS-COV-2) vaccine completed SARS-COV-2 (COVID-19) vaccine, mRNA, spike protein, LNP, preservative free, 100 mcg/0.5mL dose or 50 mcg/0.25mL dose 207 CVX created date: 07/15/2022 administer ed date: 11/02/2021 [employer] Single Dose Vaccine Covid-19/SARS-CO V-2 completed SARS-COV-2 (COVID-19) vaccine, vector non-replicating, recombinant spike protein-Ad26, preservative free, 0.5 mL 212 CVX created date: 07/15/2022 administer ed date: 09/17/2020 [employer] Covid-19 Bi-valent Solution completed SARS-COV-2 (COVID-19) vaccine, mRNA, spike protein, LNP, bivalent, preservative free, 30 mcg/0.3 mL dose, glenna-sucrose formulation 300 CVX created date: 07/15/2022 administer ed date: 05/10/2022 Mental Status Section Date Assessment Total Score Description 07/29/2022 BIMS 15 cognitively int act CAM 0 No delirium ind icated PHQ-9 02 minimal depress ion 07/21/2022 BIMS 15 cognitively int act CAM 0 No delirium ind icated PHQ-9 02 minimal depress ion Problems Problem # Description Date of onset Resolved Date Code CodeSystem Concern Status 1 ACUTE KIDNEY FAILURE, UNSPECIFIED 07/15/[address] active 2 ACUTE METABOLIC ACIDOSIS 07/15/[address] active 3 DEPENDENCE ON RENAL DIALYSIS 07/15/[address] active 4 HISTORY OF FALLING 07/15/[address] active 5 MAJOR DEPRESSIVE DISORDER, SINGLE EPISODE, UNSPECIFIED 07/15/[address] active 6 TYPE 2 DIABETES MELLITUS WITHOUT COMPLICATIONS 07/15/[address] active 7 UNSPECIFIED ATRIAL FIBRILLATION 07/15/[address] active Reason for Referral No Reasons for Referral Entered Social History Social History Observation Description Start Date End Date Code Code System Current Smoking Status Tobacco smoking consumption unknown 198501984 SNOMED CT Sex Assigned At Female 1945 [address]12-7 [facility] Vital Signs Code Code System Vitals Name Values and Units Timing Information 60656-9 [facility] Pain Level Value=0.0 07/30/2022 8462-4 [facility] Blood Pressure-Diastolic Value=64 Un its=mmHg 07/30/2022 8480-6 [facility] Blood Pressure-Systolic Ocxjw=388 Un its=mmHg 07/30/2022 2339-0 [facility] Blood Sugar Crump=958.0 Units=mg/dL 07/29/2022 9279-1 [facility] Respiratory Rate Value=18.0 Units=/m in 07/28/2022 8310-5 [facility] Body Temperature Value=98.1 Units=?? F 07/28/2022 8867-4 [facility] Heart rate Value=66.0 Units=/min 02/2023 21448-7 [facility] O2 % dC Oximetry Value=91.0 Units= % 07/28/2022 8302-2 [facility] Height Value=66.0 Units=Inches 07/25/2022 94498-0 [facility] Weight Anywj=670.8 Units=Lbs 06/2022
--- OUTSIDE RECORDS SUMMARY | 2024-09-12 15:53 | XMS_ITS | Patient Health Record ---
Author Organization [facility] Address [address] [place] [address] Care Team Providers Care Senior Linux Unix Engineer Name Role Phone Nayan Pavon Primary Care Provider Eileen Ruth [phone] Reason For Referral No Information Encounters Encounter Location Date Provider Diagnosis [facility] [address] [place] [address] 12/06/2023 Elieen Yi [facility] [address] [place] [address] 12/12/2023 Eileen Yi Plan Of Treatment No Information Insurance Providers Payer Name Payer Address Payer Phone Subscriber Number Group Number Insured Name Patient Relationship to Insured Coverage Start Date Coverage End Date [facility] [address] [place] [address] [phone] [id number] Jennifer Balderas Self - patient is the insured
--- OUTSIDE RECORDS SUMMARY | 2024-09-12 15:54 | XMS_ITS | Clinical Summary ---
Author Organization [facility] Address [address] [place] [address] Phone Care Team Providers Care Bridge Carpenter Name Role Phone Physician, Pcp Unknown Primary [...] 05/22/2024 05/24/2024 JHONNY (acute kidney injury) 05/22/2024 Medical History Medical History Date Comments Hypertension Diabetes mellitus (CMS/HCC) CKD (chronic kidney disease) Atrial flutter (CMS/HCC) Social History Tobacco Use Types Packs/Day Years [...] Procedure Name Priority Date/Time Associated Diagnosis Comments BASIC METABOLIC PANEL Routine 05/24/2024 6:09 AM EST LIPID PANEL WITH REFLEX TO DIRECT LDL Routine 05/23/2024 6:15 AM EST HEMOGLOBIN A1C Add-On 05/22/2024 1:05 PM EST from Last 3 Months or Most Recently Relevant to Health Maintenance Results * (ABNORMAL) Basic metabolic panel (05/24/2024 6:09 AM EST) Sodium 139 133 - 145 mmol/L LAB CHEMISTRY METHOD 05/24/2024 8:07 AM [facility] Potassium 4.1 3.5 - 5.5 mmol/L LAB CHEMISTRY METHOD 05/24/2024 8:07 AM [facility] Chloride 107 96 - 110 mmol/L LAB CHEMISTRY METHOD 05/24/2024 8:07 AM [facility] CO2 23 21 - 32 mmol/L LAB CHEMISTRY METHOD 05/24/2024 8:07 AM [facility] Anion Gap 9 3 - 11 LAB CHEMISTRY METHOD 05/24/2024 8:07 AM [facility] Glucose 242(H) 70 - 100 mg/dL LAB CHEMISTRY METHOD 05/24/2024 8:07 AM [facility] BUN 21 5 - 25 mg/dL LAB CHEMISTRY METHOD 05/24/2024 8:07 AM [facility] Creatinine 0.77 0.50 - 1.10 mg/dL LAB CHEMISTRY METHOD 05/24/2024 8:07 AM [facility] eGFR 79 >=60 mL/min/1. 73m2 LAB CHEMISTRY METHOD 05/24/2024 8:07 AM [facility] Comment:Calculation based on the??Chronic Kidney Disease Epidemiology Collaboration (CKD-EPI) equation refit??without adjustment for race. BUN/Creatinine Ratio 27.3 LAB CHEMISTRY METHOD 05/24/2024 8:07 AM [facility] Calcium 8.6 8.5 - 10.5 mg/dL LAB CHEMISTRY METHOD 05/24/2024 8:07 AM [facility] Blood Venous blood specimen / Unknown Venipuncture / Unknown 05/24/2024 6:09 AM EST 05/24/2024 7:26 AM EST us Amanda Day MD LAB BLOOD ORDERABLES Final Res ult [facility] [address] [place] [address], * Lipid panel with reflex to direct LDL (05/23/2024 6:15 AM EST) Cholesterol 107 0 - 200 mg/dL LAB CHEMISTRY METHOD 05/23/2024 8:04 AM [facility] Triglycerides 117 0 - 150 mg/dL LAB CHEMISTRY METHOD 05/23/2024 8:04 AM [facility] HDL 54 >=40 mg/dL LAB CHEMISTRY METHOD 05/23/2024 8:04 AM [facility] LDL Calculated 30 0 - 100 mg/dL LAB CHEMISTRY METHOD 05/23/2024 8:04 AM [facility] VLDL Cholesterol Matthew 23.4 mg/dL LAB CHEMISTRY METHOD 05/23/2024 8:04 AM [facility] Non HDL Chol. (LDL+VLDL) 53 <145 mg/dL LAB CHEMISTRY METHOD 05/23/2024 8:04 AM [facility] Chol/HDL Ratio 2.0 0.0 - 4.4 LAB CHEMISTRY METHOD 05/23/2024 8:04 AM [facility] Blood Venous blood specimen / Unknown Venipuncture / Unknown 05/23/2024 6:15 AM EST 05/23/2024 7:15 AM EST us Pedro Luis DEAN LAB BLOOD ORDERABLES Final Res ult [facility] [address] [place] [address], [place] [phone] * (ABNORMAL) Hemoglobin A1c (05/22/2024 1:05 PM EST) Hemoglobin A1C 7.7(H) <6.5 % LAB CHEMISTRY METHOD 05/23/2024 11:39 AM [facility] Mean Bld Glu Estim. 174 mg/dL LAB CHEMISTRY METHOD 05/23/2024 11:39 AM EST [facility] Blood Venous blood specimen / Unknown Venipuncture / Unknown 05/22/2024 1:05 PM EST 05/22/2024 1:11 PM EST us Pedro Luis DEAN LAB BLOOD ORDERABLES Final Res ult [facility] [address] [place] [address], from Last 3 Months or Most Recently Relevant to Health Maintenance Insurance [employer] Advance [...] currently active code status orders. Care Teams Bridge Carpenter Relationship Specialty Start Date End Date Physician, Pcp Unknown PCP - General 05/22/24
--- OUTSIDE RECORDS SUMMARY | 2024-09-12 15:54 | XMS_ITS | Patient Health Record ---
Author Organization [facility] Address [address] [place] [address] Care Team Providers Care Steel Cutter Name Role Phone Po Nayan AKHTAR Primary Care Provider Alvaro Grimes Unavailable [phone] Reason For Referral No Information Medications Medication SIG (Take, Route, Frequency, Duration) Notes [...] QD-BID for diarrhea for 30 day(s) Active Immunizations Vaccine Route Administration Date Status Comme nts Influenza Unknown 11/27/2019 Refused Social History Tobacco Use: Social History Observation Description Date Details (start date - stop date) Current Smoker NA - NA Tobacco Use/Smoking Question Answer Notes Patient is [...] Never (0 point) Points 1 Interpretation Negative Section Notes: Smokes 2 cigs QD; occ alcoho l Smokes 2 cigs QD; occ alcoho l Smokes 2 cigs QD; occ alcoho l Problems Problem Type SNOMED Code ICD Code Onset Dates Problem Status W/U Status Risk Notes Problem 086183833 Encounter for screening for malignant neoplasm of colon (Z12.11) Active confirmed Problem 924761871 Change in bowel function (R19.4) Active confirmed Problem 41192250 Diarrhea, unspecified type (R19.7) Active confirmed Plan Of Treatment Future Test Test Name Order Date COLONOSCOPY 12/08/2016 Insurance Providers Payer Name Payer Address Payer Phone Subscriber Number Group Number Insured Name Patient Relationship to Insured Coverage Start Date Coverage End Date [facility] [address] [place] [phone] [id number] ROSA DIAZ Self - patient is the insured Medical (General) History Medical History History ICD Code Screening colonoscopy 2005--neg. except fpor hyperplastic polyps, diverticulosis, and internal hemorroids NIDDM Hypertension Hyperlipidemia Anxiety She describes a heart block on her EKG Denies [place], CVA,Lung disease,renal diseas e Osteoarthosis Neg. colonoscopy in 12/2016. Biopsies neg for microscopic colitis Neg. labs for celiac disease in 2016. Diarrhea--much better on the cholestyram ine Surgical History Surgery Date(Month/Year) Breast reduction Left hip replacement approx 2010 [facility]
--- OUTSIDE RECORDS SUMMARY | 2024-09-12 15:54 | XMS_ITS ---
Author Organization [facility] Address [address] [place] [address] Care Team Providers Care C Unix Developer Name Role Phone Nayan Pavon Primary Care Provider UnavailEileen Madsen [phone] Encounters Encounter Location Date Provider Diagnosis [facility] [address] [place] [address] 03/18/2024 Eileen Yi Plan Of Treatment No Information Progress Notes * Jennifer BALDERASDOB:1944 (79 yo F)Acc No.[id number]:03/18/2024 Progress Notes Patient:?Jennifer BALDERAS Provider:?Eileen Yi DPM :1945???Age:79 Y???Sex:Female D ate:03/18/2024 Address:[address] [place], [place] [id number] Pcp:Nayan Pavon Subjective: * Chief Complaints: * ??? * Medical History:? Objective: * Vitals:? Assessment: Plan: * Treatment: * Images: * The named appointment provid er may or may not be the originator of this progress note, and it is not deemed complete until electronically signed by the appointment provider. Sign off status: Pending * Provider:?Eileen Yi DPM Date:?2023 Generated for Violette bishop/Nan/Adansmitting on:?09/12/2024 03:53 PM EDT
--- OUTSIDE RECORDS SUMMARY | 2024-09-12 15:54 | XMS_ITS ---
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 Generated for Violette bishop/Nan/eTransmitting on:?09/12/2024 03:53 PM EDT
== END 2024-09-12 13:31 | disposition home or self-care (01) ==
LOC: HO.HVS 12:52
PROVIDERS: PCP Internal Medicine; Visit Provider Surgery Vascular Surgery
DX: I72.1 Aneurysm of artery of upper extremity (principal)
CPT/HCPCS: 99214

== ENCOUNTER → 2024-09-12 12:51 | Outpatient (BNVA) | payer MEDICARE, SELFPAY | PROVIDERS: PCP Internal Medicine; Visit Provider Surgery Vascular Surgery | DX: I72.9 Aneurysm of unspecified site (principal); T81.718A Complication of other artery following a procedure, not elsewhere classified, initial encounter; X58.XXXA Exposure to other specified factors, initial encounter; Y93.9 Activity, unspecified; Y92.9 Unspecified place or not applicable; Y99.9 Unspecified external cause status | CPT/HCPCS: 99212 ==

== ENCOUNTER 2024-09-20 11:56 | Day surgery (SDC) | payer MEDICARE, SELFPAY ==
--- NOTE | 2024-09-18 14:16 | HO.ANESPROP2 ---
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 No significant RCA or circumflex disease. Minimal to mild disease in the LAD. Significant dampening of pressure in the left main with angiographic 50 to 60% stenosis. Deemed moderate to high risk for surgery. Afib/flutter - eliquis, but patient hasn't been taking according to cardiology office visit note Case reviewed with Dr Rubin Anesthesia Pre-Procedure Meds Is the patient on any of the following meds?: GLP1/DPP4 PMFSH Active Problems Active Problems: All Active Problems Cervical spinal stenosis (Acute) Pseudoaneurysm following procedure (Acute) Pseudoaneurysm (Acute) S/P cardiac cath (Acute) Abnormal nuclear stress test (Acute) Preoperative cardiovascular examination (Acute) Hypertension (Acute) Benign skin lesion of forehead (Acute) Scalp abscess (Acute) History of non-ST elevation myocardial infarction (NSTEMI) (Acute) History of CVA (cerebrovascular accident) (Acute) Osteoarthritis of left knee (Acute) Osteoarthritis of right knee (Acute) Cognitive impairment (Acute) History of hip replacement (Acute) Fracture of proximal end of left humerus (Acute) Comminuted left humeral fracture (Acute) Staphylococcus aureus bacteremia (Acute) Type 2 diabetes mellitus with hyperglycemia (Acute) Adjustment disorder with depressed mood (Acute) Atherosclerotic cardiovascular disease (Acute) Atrial flutter (Acute) Open wound of left elbow (Acute) End stage renal disease (Acute) Myocardial infarction (Acute) Abrasion of left elbow (Acute) Age-related osteoporosis without current pathological fracture (Acute) Primary localized osteoarthritis of knees, bilateral (Acute) Primary osteoarthritis of right hip (Acute) Overweight (BMI 25.0-29.9) (Acute) Insomnia (Acute) Hypercholesterolemia (Acute) Osteoarthrosis (Acute) Past Medical History Medical History Preoperative cardiovascular examination Hypertension History of CVA (cerebrovascular accident) Adjustment disorder with depressed mood Hyponatremia Atherosclerotic cardiovascular disease Atrial flutter Preop exam for internal medicine Impacted cerumen of both ears Annual physical exam Frequency of micturition Generalized anxiety disorder Obesity (BMI 30.0-34.9) Annual physical exam Primary osteoarthritis of left knee Second degree AV block Overweight (BMI 25.0-29.9) Insomnia Tobacco abuse Hypercholesterolemia Osteoarthrosis Type 2 diabetes mellitus with hyperglycemia Family History Family History Father Cancer Mother Medical history unknown Brother Liver cancer Sister Hypertension COPD (chronic obstructive pulmonary disease) Family history of problems with anesthesia: No Surgical History Surgical History History of tonsillectomy History of cholecystectomy H/O breast reconstruction History of hip replacement History of Problems with Anesthesia: No Social History Social History Household Members: None Housing: Apartment Do you presently have visiting nurse or other home services: No Alcohol intake: never Patient Tobacco Use Status: Former Tobacco user Tobacco use type: Cigarette Cigarettes Per Day: 2 e-Cigarette/Vaping Use: Never Used Second Hand Smoke Exposure: No Use of substances other than those prescribed or required for medical reasons: No Have you been hit, kicked, punched, or otherwise hurt by someone within the past year? If so, by whom?: No Are you DNR?: No Advance Directives: No Advance Directives Information Provided: Yes Advance Directives on File: No Advance Directives Date on File: 10/07/22 Patient : No : No Poor oral hygiene: No service: No Current occupational status: retired Current occupation: Right Handed Cognitive needs: Yes (walker, Cane, Wheelchair) Hearing needs: No Vision needs: Yes (Glasses) Meds Allergies Allergy/AdvReac Type Severity Reaction Status Date / Time No Known Allergies Allergy Verified 09/12/24 13:03 Home Medications ?Medication ?Instructions ?Recorded ?Confirmed ?Last Taken ?Type chlorpromazine 50 mg tablet 50 mg PO BEDTIME 09/24/22 09/20/24 09/23/22 History cholestyramine-aspartame 4 gram 1 ea PO DAILY diarrhea 09/24/22 09/20/24 09/23/22 History oral powder (Cholestyramine Light) sertraline 100 mg tablet 100 mg PO DAILY 09/24/22 09/20/24 09/20/24 History clonazepam 1 mg tablet See Rx Instructions PO .COMPLEX 12/07/22 09/20/24 09/20/24 History Exam Pertinent Lab Results Pertinent Lab Results: Laboratory Tests 07/10/24 11:04 WBC 9.5 Hgb 11.7 L Hct 36.2 L Plt Count 349 Sodium 138 Potassium 4.4 Chloride 107 Carbon Dioxide 22 BUN 16 Creatinine 0.80 Narrative Narrative: cardiac catheterization on 07/18/2024 showing left main 55% stenosis, no significant disease elsewhere. Echocardiogram done 07/23/2024 showed EF 66%, basal inferior and basal inferior lateral akinetic. EKG 06/2024 atrial flutter with variable AV block, nonspecific intraventricular conduction delay, 1 PVC rate 65 Assessment and Plan Assessment Anesthesia Assessment: Chart Reviewed Final Anesthetic Review Family History of Problems with Anesthesia: No History of Problems with Anesthesia: No Documented by User: Lupis Wagner MD 09/20/24 13:32 [facility] Past Medical History Medical History Preoperative cardiovascular examination Hypertension History of CVA (cerebrovascular accident) Adjustment disorder with depressed mood Hyponatremia Atherosclerotic cardiovascular disease Atrial flutter Preop exam for internal medicine Impacted cerumen of both ears Annual physical exam Frequency of micturition Generalized anxiety disorder Obesity (BMI 30.0-34.9) Annual physical exam Primary osteoarthritis of left knee Second degree AV block Overweight (BMI 25.0-29.9) Insomnia Tobacco abuse Hypercholesterolemia Osteoarthrosis Type 2 diabetes mellitus with hyperglycemia Family History Family History Father Cancer Mother Medical history unknown Brother Liver cancer Sister Hypertension COPD (chronic obstructive pulmonary disease) Surgical History Surgical History History of tonsillectomy History of cholecystectomy H/O breast reconstruction History of hip replacement Social History Social History Household Members: None Housing: Apartment Do you presently have visiting nurse or other home services: No Alcohol intake: never Patient Tobacco Use Status: Former Tobacco user Tobacco use type: Cigarette Cigarettes Per Day: 2 e-Cigarette/Vaping Use: Never Used Second Hand Smoke Exposure: No Use of substances other than those prescribed or required for medical reasons: No Have you been hit, kicked, punched, or otherwise hurt by someone within the past year? If so, by whom?: No Are you DNR?: No Advance Directives: No Advance Directives Information Provided: Yes Advance Directives on File: No Advance Directives Date on File: 10/07/22 Patient : No : No Poor oral hygiene: No service: No Current occupational status: retired Current occupation: Right Handed Cognitive needs: Yes (walker, Cane, Wheelchair) Hearing needs: No Vision needs: Yes (Glasses) Meds Allergies Allergy/AdvReac Type Severity Reaction Status Date / Time No Known Allergies Allergy Verified 09/12/24 13:03 Home Medications ?Medication ?Instructions ?Recorded ?Confirmed ?Last Taken ?Type chlorpromazine 50 mg tablet 50 mg PO BEDTIME 09/24/22 09/20/24 09/23/22 History cholestyramine-aspartame 4 gram 1 ea PO DAILY diarrhea 09/24/22 09/20/24 09/23/22 History oral powder (Cholestyramine Light) sertraline 100 mg tablet 100 mg PO DAILY 09/24/22 09/20/24 09/20/24 History clonazepam 1 mg tablet See Rx Instructions PO .COMPLEX 12/07/22 09/20/24 09/20/24 History Exam Airway Mallampati Class: II TM Dist: >3cm Neck ROM: Full Heart: rrr Lungs: cta Assessment and Plan Assessment Anesthesia Assessment: Anesthesia Plan Discussed Final Anesthetic Review NPO: Yes ASA Class: IV Final Preanesthetic Review: No Changes in Pt Med Stat, Meds/Allgs Chart Reviewed and Consent Obtained/Reviewed Patient Risk: Intermediate Procedure Risk: Low Anesthetic Plan Anesthetic Plan: MAC: Disposition: Standard PACU
[2024-09-20] VITALS (8 sets, daily range): BP systolic 129–150; BP diastolic 52–64; PULSE 44–66; RESP 16; TEMP 36.1–36.7; O2SAT 95–98; BMI 24.7
[2024-09-20 12:45] LABS: Hematocrit 37.6 % (37.0-47.0); Hemoglobin 12.3 g/dl (12.0-16.0); Mean Corpuscular HGB Conc 32.7 g/dl (31.0-35.0); Mean Corpuscular Hemoglobin 26.1 pg (27.0-33.0); Mean Corpuscular Volume 79.7 fL (80.0-98.0); Platelet Count 360 X10*3/uL (160-400); Red Blood Count 4.72 X10*6/uL (4.20-5.50); Red Cell Distribution Width 13.7 % (11.0-16.0); White Blood Count 9.5 X10*3/uL (4.8-10.8)
[2024-09-20] MEDS: Lactated Ringers 1,000 ML 100 ML IVCONT (12:50)
[2024-09-20 12:59] LABS: Anion Gap 12 (12-20); Blood Urea Nitrogen 17 mg/dL (9-16); Calcium 9.7 mg/dL (8.4-10.2); Carbon Dioxide 22 mmol/L (22-29); Chloride 109 mmol/L (96-108); Creatinine Clr Calc Pharmacy 52.8; Estimated Glomerular Filt Rate > 60; Glucose Random 143 mg/dL (60-115); Potassium 4.4 mmol/L (3.3-5.1); Sodium 139 mmol/L (135-145)
[2024-09-20 13:38] LABS: Glucose, Whole Blood 121 mg/dL (60-115)
--- NOTE | 2024-09-20 13:42 | MHC.SHP ---
Pre-Procedural Eval Section A - 24 Hr Update-Section A only Date of Service: 09/20/24 The patient is an INPATIENT: No Changes since office visit: Yes Patient answered all questions The patient has been examined within 24 hours of the surgical procedure. The History & Physical has been completed within 30 days and I have reviewed it.: Yes Section B - Complete if H&P > 30 days Chief Complaint: Aneurysm of unspecified site Allergies: Allergies Allergy/AdvReac Type Severity Reaction Status Date / Time No Known Allergies Allergy Verified 09/12/24 13:03 Plan I have reviewed the history and physical and performed a pertinent physical examination on my patient. No changes have occurred unless specified. Time Spent With Patient Time: Total time managing care of this patient today ____ minutes.
--- NOTE | 2024-09-20 15:29 | P.OP_ITS ---
Operative Note Operative Note Date of Service: 09/20/24 Narrative: Operative note by [facility] Preoperative diagnosis: Right radial artery pseudoaneurysm Postoperative diagnosis: Same Procedure:1. Right radial artery exploration 2. Resection of pseudoaneurysms 3. Repair of right radial artery Surgeon:Thiago Salinas M.D. Quality Facilitator: Esthela DEAN Anesthesia: Local with sedation Specimens: 1 Drains: None Estimated blood loss: 100 mL Indications: 71-year-old female with prior cardiac catheterization developed a right radial artery pseudo aneurysm. It was compressed and observed and continued to get larger on follow-up ultrasounds. She now presents for radial artery repair. The patient has signed the informed consent after reviewing risks, complications, benefits, and alternatives previously discussed with the patient. The patient was given the opportunity to ask any additional questions or voice any concerns. All questions were answered to the patient's satisfaction. Procedure in detail: Patient was brought to the operating room prior to which a time-out was called for patient identification site verification. Right arm was prepped and draped in standard surgical fashion. Incision was carried out over the pseudo aneurysm after infiltrating the area with local. Once down through the skin subcu and soft tissue we then dissected around the pseudo aneurysm circumferentially until we got down to the base of the radial artery. This was then resected in its entirety. Once we were through proximal and distal control had to be obtained with direct pressure. Prior to complete resection 3000 units of systemic heparin was administered. Once we did resect this we then got down to the base of the pseudo aneurysm. This was removed. We identified the open puncture site. This was closed off with a 6 0 Prolene suture. We then placed no. After adequate hemostasis was achieved with electrocautery we irrigated the wound thoroughly out. We then placed Vistaseal as a sealant. Deep layer was reapproximated using 3-0 poly Sorb and finally skin was closed using a running 4-0 Monocryl. Steri-Strips and a sterile dressing were applied. At the end the case sponge instrument counts were correct. Patient awoke neurologically intact able to move hand with good perfusion. Less than 2 seconds capillary refill. This note is constructed using voice recognition software. While every effort has been made to ensure accuracy, online journalist errors may have been included. Thank you for allowing me to participate in the care of your patient. Yours sincerely, Thiago Salinas MD, FACS, R.P.V.I.
== END 2024-09-20 17:15 | disposition home or self-care (01) ==
PROVIDERS: PCP Internal Medicine; Visit Provider Surgery Vascular Surgery
PROC: (CPT 35045; principal; 2024-09-20 13:30)
DX: T81.718A Complication of other artery following a procedure, not elsewhere classified, initial encounter (principal); I72.1 Aneurysm of artery of upper extremity; I10 Essential (primary) hypertension; E78.00 Pure hypercholesterolemia, unspecified; E11.65 Type 2 diabetes mellitus with hyperglycemia; I25.10 Atherosclerotic heart disease of native coronary artery without angina pectoris; I44.1 Atrioventricular block, second degree; I48.92 Unspecified atrial flutter; Z86.73 Personal history of transient ischemic attack (TIA), and cerebral infarction without residual deficits; E87.1 Hypo-osmolality and hyponatremia; F43.21 Adjustment disorder with depressed mood; F41.1 Generalized anxiety disorder; Z79.899 Other long term (current) drug therapy; Z99.89 Dependence on other enabling machines and devices; Z98.890 Other specified postprocedural states; Z96.642 Presence of left artificial hip joint; Z87.891 Personal history of nicotine dependence; Z90.49 Acquired absence of other specified parts of digestive tract
CPT/HCPCS: 35045; 36415; 80048; 82947; 85027; 88304; A4649; C9250; J0690; J1644; J2003; J2704; J2795

== ENCOUNTER → 2024-09-20 11:56 | Outpatient (BNV) | payer MEDICARE, SELFPAY | PROVIDERS: PCP Internal Medicine; Visit Provider Surgery Vascular Surgery | DX: I72.1 Aneurysm of artery of upper extremity (principal) | CPT/HCPCS: 35045 ==

== ENCOUNTER 2024-10-03 13:45 | Outpatient (AMB) | payer MEDICARE, SELFPAY ==
--- NOTE | 2024-10-03 13:44 | MHC.OFFVIS ---
Intake Visit Reasons: 2 week post op Right Radial artery repair Intake Note: Patient presents for 2 week post op for right radial artery repair. Some pain here and there no other complaints or concerns. Accompanied by: Self / Same As Patient Allergies No Known Allergies Allergy (Verified 10/03/24 13:45) HPI HPI 2 week post op Right Radial artery repair: Details: Jennifer is presenting today as a 2w follow up s/p right radial pseudoaneurysm repair. She states it is looking and feeling better. She has been keeping the area covered with bandages and the steri-strips have not come off yet. She denies any pain or discomfort to the area. She denies any concerns with her right wrist/hand, she is able to use it fully. Her concerns today are due to transportation issues and knee pain. [facility] Medical History Preoperative cardiovascular examination Hypertension History of CVA (cerebrovascular accident) Adjustment disorder with depressed mood Hyponatremia Atherosclerotic cardiovascular disease Atrial flutter Preop exam for internal medicine Impacted cerumen of both ears Annual physical exam Frequency of micturition Generalized anxiety disorder Obesity (BMI 30.0-34.9) Annual physical exam Primary osteoarthritis of left knee Second degree AV block Overweight (BMI 25.0-29.9) Insomnia Tobacco abuse Hypercholesterolemia Osteoarthrosis Type 2 diabetes mellitus with hyperglycemia Surgical History History of tonsillectomy History of cholecystectomy H/O breast reconstruction History of hip replacement Family History Father Cancer Mother Medical history unknown Brother Liver cancer Sister Hypertension COPD (chronic obstructive pulmonary disease) Social History Household Members: None Housing: Apartment Do you presently have visiting nurse or other home services: No Alcohol intake: never Patient Tobacco Use Status: Former Tobacco user Tobacco use type: Cigarette Cigarettes Per Day: 2 e-Cigarette/Vaping Use: Never Used Second Hand Smoke Exposure: No Advance Directives Date on File: 10/07/22 service: No Current occupational status: retired Current occupation: Right Handed Cognitive needs: Yes (walker, Cane, Wheelchair) Hearing needs: No Vision needs: Yes (Glasses) Review of Systems Const Reports as per HPI and Denies weakness ENT Reports Normal hearing present and Denies dizziness Card Reports as per HPI, Denies chest pain, Denies chest pain at rest, Denies chest pain with activity, Denies dyspnea and Denies dyspnea on exertion Resp Reports as per HPI, Denies cough, Denies dyspnea and Denies dyspnea on exertion GI Reports as per HPI, Denies abdominal pain, Denies nausea and Denies vomiting Musc Denies numbness Skin/Breast Reports as per HPI, Denies erythema and Denies wounds Neuro Reports Normal hearing present, Denies dizziness, Denies numbness, Denies Sensory deficit (Neuro) and Denies weakness Psych Reports no additional complaints Endo Reports no additional complaints Physical Exam Const General: healthy appearing and no acute distress Orientation/consciousness: patient oriented x3 HEENT Head: Yes normal to inspection Ears: hearing grossly normal bilaterally Mouth: Normal oral and palatal mucosa present Resp Effort & Inspection: normal respiratory effort and able to speak in complete sentences Auscultation: clear to auscultation bilaterally Cardio Jugular venous distension: no JVD Rate: regular rate Rhythm: regular rhythm Heart sounds: S1 normal heart sound present and S2 normal heart sound present Bruits: no abdominal aortic bruits, no carotid bruits, no femoral bruits and no renal bruits Peripheral pulses: Peripheral pulses 2+ throughout GI Inspection: Yes normal to inspection Palpation (GI): No Abdominal aortic bruit present Skin General skin exam: no rashes or lesions noted Wounds: no wounds Hair: normal Neuro General: patient oriented x3 Cranial nerves: Yes Normal hearing present Cognition (Neuro): normal cognition Gait exam (Neuro): Normal gait present Motor exam (neuro): 5/5 motor strength present throughout Sensory Exam: No Sensory deficit (Neuro) Extrem Other: Right wrist: bandage intact, no bleeding or discharge noted on the bandage. Steri-strips in place but falling off; they were easily and completely removed without difficulty. The incision is C/D/I. There is no bleeding noted. Radial pulse strong and palpable. Full passive and active ROM of the right hand/wrist. General: Yes normal to inspection, Yes full ROM, Yes capillary refill normal and Yes normal gait Assessment & Plan Assessment & Plan (1) Pseudoaneurysm following procedure: Code(s): T81.718A - Complication of other artery following a procedure, not elsewhere classified, initial encounter; I72.9 - Aneurysm of unspecified site Category: Medical Plan: Jennifer is presenting today for a 2w follow up s/p right radial artery pseudoaneurysm repair on 09/20/24. She denies any pain or discomfort in the wrist. We were able to remove the bandage and steri-strips without difficulty. The incision site looks great and there is no deficits in ROM. We applied a bandage to the middle of the site, per pt request; there is no bleeding or drainage, just a small dry skin area. We discussed to keep the area clean and dry and the sutures are dissolvable. We discussed that she will not need to follow up with us unless she has any other vascular concerns. Thank you for allowing us to participate in the patient's care. If there are any questions or concerns, please do not hesitate to reach out to us. Coding Level of Care Code Est Pt Level 3 (01537) Diagnoses Pseudoaneurysm following procedure T81.718A; I72.9
--- OUTSIDE RECORDS SUMMARY | 2024-10-03 16:49 | XMS_ITS | Clinical Summary ---
Author Organization [facility] Facility Address [address] [address] Care Team Providers Care Yard Crane Operator Name Role Phone Nayan Pavon MD Primary Care Provider [phone] Social History Tobacco Use Types Packs/Day Years [...] Risk Dialysis 4-dose series) 1966 Pneumococcal Vaccine: 50+ Years (1 of 1 - PCV) 996 Influenza Vaccine (Season Ended) 2025 Insurance [facility] MCR Care Teams Yard Crane Operator Relationship Specialty Start Date End Date Nayan Pavon MD [facility] [place] [id number] [place], [place] PCP - General Internal Medicine 06/30/22
--- OUTSIDE RECORDS SUMMARY | 2024-10-03 16:49 | XMS_ITS | Clinical Summary ---
Author Organization [facility] Address [address] [place] [address] Phone Care Team Providers Care Sales Support Representative Name Role Phone Physician, Pcp Unknown Primary [...] Date Diagnosed Date Resolved Date Traumatic rhabdomyolysis, in itial encounter ([facility] V24) 05/22/2024 05/24/2024 JHONNY (acute kidney injury) ([facility] V24) 05/22/2024 05/24/2024 Medical History Medical History Date Comments Hypertension Diabetes mellitus ([facility] V24, [facility] V28) CKD (chronic kidney disease) Atrial flutter ([facility] V24, [facility] V28) Social History Tobacco Use Types Packs/Day Years [...] Vaccines (1 of 2) 1996 RSV Immunization Adult Patients (1 - 1-dose 75+ series) 2021 Pneumococcal Vaccine: 50+ Years (2 of 2 - PCV) 11/09/2022 11/09/2021, 04/25/2017 COVID-19 Vaccine (2023- season) 2024 10/25/2022, 05/10/2022, 11/02/2021, Additional history exists Depression Screening 03/28/2024 Hepatitis C Screening 03/28/2024 Medicare Annual Wellness Visit 03/28/2024 Osteoporosis Screening (Bone Density Screening) 03/28/2024 Social Influencers of Health Screening 03/28/2024 Diabetes: Annual Urine Albumin-Creatinine Ratio (uACR) 05/22/2024 Diabetes: Blood Sugar Control Test (HGBA1C) 11/20/2024 05/22/2024 Influenza Vaccine (Season Ended) 2025 05/24/2022, 04/25/2017 Diabetes: Annual GFR (Glomerular Filtration Rate) 05/24/2025 [...] age to complete this topic Meningococcal B Vaccine Aged Out No l onger eligible based on patient's age to complete [...] mmol/L LAB CHEMISTRY METHOD 05/24/2024 8:07 AM [facility] Potassium 4.1 3.5 - 5.5 mmol/L LAB CHEMISTRY METHOD 05/24/2024 8:07 AM [facility] Chloride 107 96 - 110 mmol/L LAB CHEMISTRY METHOD 05/24/2024 8:07 AM [facility] CO2 23 21 - 32 mmol/L LAB CHEMISTRY METHOD 05/24/2024 8:07 AM [facility] Anion Gap 9 3 - 11 LAB CHEMISTRY METHOD 05/24/2024 8:07 AM [facility] Glucose 242(H) 70 - 100 mg/dL LAB CHEMISTRY METHOD 05/24/2024 8:07 AM [facility] BUN 21 5 - 25 mg/dL LAB CHEMISTRY METHOD 05/24/2024 8:07 AM [facility] Creatinine 0.77 0.50 - 1.10 mg/dL LAB CHEMISTRY METHOD 05/24/2024 8:07 AM [facility] eGFR 79 >=60 mL/min/1. 73m2 LAB CHEMISTRY METHOD 05/24/2024 8:07 AM [facility] Comment:Calculation based on the??Chronic Kidney Disease Epidemiology Collaboration (CKD-EPI) equation refit??without adjustment for race. BUN/Creatinine Ratio 27.3 LAB CHEMISTRY METHOD 05/24/2024 8:07 AM [facility] Calcium 8.6 8.5 - 10.5 mg/dL LAB CHEMISTRY METHOD 05/24/2024 8:07 AM [facility] Blood Venous blood specimen / Unknown Venipuncture / Unknown 05/24/2024 6:09 AM EST 05/24/2024 7:26 AM EST us Amanda Day MD LAB BLOOD ORDERABLES Final Res ult [facility] [address] [place] [address], [place] [phone] * Lipid panel with reflex to direct LDL (05/23/2024 6:15 AM EST) Cholesterol 107 0 - 200 mg/dL LAB CHEMISTRY METHOD 05/23/2024 8:04 AM EST [facility] Triglycerides 117 0 - 150 mg/dL LAB CHEMISTRY METHOD 05/23/2024 8:04 AM [facility] HDL 54 >=40 mg/dL LAB CHEMISTRY METHOD 05/23/2024 8:04 AM [facility] LDL Calculated 30 0 - 100 mg/dL LAB CHEMISTRY METHOD 05/23/2024 8:04 AM [facility] VLDL Cholesterol Matthew 23.4 mg/dL LAB CHEMISTRY METHOD 05/23/2024 8:04 AM [facility] Non HDL Chol. (LDL+VLDL) 53 <145 mg/dL LAB CHEMISTRY METHOD 05/23/2024 8:04 AM [facility] Chol/HDL Ratio 2.0 0.0 - 4.4 LAB CHEMISTRY METHOD 05/23/2024 8:04 AM [facility] Blood Venous blood specimen / Unknown Venipuncture / Unknown 05/23/2024 6:15 AM EST 05/23/2024 7:15 AM EST us Pedro Luis DEAN LAB BLOOD ORDERABLES Final Res ult [facility] [address] [place] [address], [place] [phone] * (ABNORMAL) Hemoglobin A1c (05/22/2024 1:05 PM EST) Hemoglobin A1C 7.7(H) <6.5 % LAB CHEMISTRY METHOD 05/23/2024 11:39 AM [facility] Mean Bld Glu Estim. 174 mg/dL LAB CHEMISTRY METHOD 05/23/2024 11:39 AM EST [facility] Blood Venous blood specimen / Unknown Venipuncture / Unknown 05/22/2024 1:05 PM EST 05/22/2024 1:11 PM EST us Pedro Luis DEAN LAB BLOOD ORDERABLES Final Res ult [facility] [address] [place] [address], from Last 3 Months or Most Recently [...] currently active code status orders. Care Teams Sales Support Representative Relationship Specialty Start Date End Date Physician, Pcp Unknown PCP - General 05/22/24
== END 2024-10-03 13:58 | disposition home or self-care (01) ==
LOC: HO.HVS 13:45
PROVIDERS: PCP Internal Medicine; Visit Provider Physician Assistant Surgical
DX: T81.718A Complication of other artery following a procedure, not elsewhere classified, initial encounter (principal); I72.9 Aneurysm of unspecified site
CPT/HCPCS: 99024

== ENCOUNTER → 2024-10-03 13:45 | Outpatient (BNVA) | payer MEDICARE, SELFPAY | PROVIDERS: PCP Internal Medicine; Visit Provider Physician Assistant Surgical | DX: T81.718D Complication of other artery following a procedure, not elsewhere classified, subsequent encounter (principal); I72.9 Aneurysm of unspecified site | CPT/HCPCS: 99212 ==

== ENCOUNTER 2025-01-13 13:31 | Outpatient (AMB) | payer MEDICARE, SELFPAY ==
--- NOTE | 2025-01-13 13:40 | A.OFFPC_ITS ---
Vital Signs 01/13/25 13:41 Height 5 ft 5 in Weight 154 lb 1.65 oz BMI 25.6 BP 142/54 H Blood Pressure Location Lt brachial Respiration 18 Pulse 48 L Pulse Source Pulse Oximeter Temp 96.9 F Temp Source Temporal Artery Scan Pulse Oximetry (%) 97 Oxygen Delivery Method Room Air Intake Visit Reasons: Follow up visit Command Center Analyst Required: No Accompanied by: Self / Same As Patient Allergies No Known Allergies Allergy (Verified 01/13/25 13:42) Medication List - Last Reconciled 01/13/25 by Nayan Pavon MD acetaminophen 650 mg (2 x 325 mg) PO Q6H PRN apixaban (Eliquis) 5 mg PO BID blood sugar diagnostic (FreeStyle Test strips) Use 1 test strip once a day chlorpromazine 50 mg PO BEDTIME cholecalciferol (vitamin D3) 25 mcg PO DAILY cholestyramine-aspartame 4 gram (Cholestyramine Light) 1 ea PO DAILY clonazepam 1/2 tab in am and 1 tab in pm orally; cyanocobalamin (vitamin B-12) (Vitamin B-12) 1,000 mcg PO DAILY 90 days empagliflozin (Jardiance) 10 mg PO DAILY folic acid 1 mg PO DAILY lancets (FreeStyle Lancets) As directed check BS QD melatonin 6 mg (2 x 3 mg) PO BEDTIME PRN metformin 1,000 mg PO BIDWMEAL metoprolol succinate ER 25 mg PO DAILY sertraline 100 mg PO DAILY simvastatin 40 mg PO DAILY 90 days Tobacco use date assessed: 01/13/25 Fall risk assessment: 2 + Falls in past year Last assessed Fall Risk: 01/13/25 Dental Screening Dental Screen Date: 01/13/25 Did you have a dental visit in the last 12 months?: No Did you have a dental problem in the last 6 months where you did not have access to dental care?: No Was dental information given to patient?: Patient has dentist [facility] Medical History Preoperative cardiovascular examination Hypertension History of CVA (cerebrovascular accident) Adjustment disorder with depressed mood Hyponatremia Atherosclerotic cardiovascular disease Atrial flutter Preop exam for internal medicine Impacted cerumen of both ears Annual physical exam Frequency of micturition Generalized anxiety disorder Obesity (BMI 30.0-34.9) Annual physical exam Primary osteoarthritis of left knee Second degree AV block Overweight (BMI 25.0-29.9) Insomnia Tobacco abuse Hypercholesterolemia Osteoarthrosis Type 2 diabetes mellitus with hyperglycemia Surgical History History of tonsillectomy History of cholecystectomy H/O breast reconstruction History of hip replacement Family History Father Cancer Mother Medical history unknown Brother Liver cancer Sister Hypertension COPD (chronic obstructive pulmonary disease) Social History Household Members: None Housing: Apartment Do you presently have visiting nurse or other home services: No Alcohol intake: never Patient Tobacco Use Status: Former Tobacco user Tobacco use type: Cigarette Cigarettes Per Day: 2 e-Cigarette/Vaping Use: Never Used Second Hand Smoke Exposure: No Advance Directives Date on File: 10/07/22 service: No Current occupational status: retired Current occupation: Right Handed Cognitive needs: Yes (walker, Cane, Wheelchair) Hearing needs: No Vision needs: Yes (Glasses) Questionnaire PHQ-9 Over the last 2 weeks, how often have you been bothered by any of the following problems? 1. Little interest or pleasure in doing things: not at all 2. Feeling down, depressed, or hopeless: not at all 3. Trouble falling or staying asleep, or sleeping too much: not at all 4. Feeling tired or having little energy: not at all 5. Poor appetite or overeating: not at all 6. Feeling bad about yourself - or that you are a failure or have let yourself or your family down: not at all 7. Trouble concentrating on things, such as reading the newspaper or watching television: not at all 8. Moving or speaking so slowly that other people could have noticed. Or the op posite - being so fidgety or restless that you have been moving around a lot more than usual: not at all 9. Thoughts that you would be better off or of hurting yourself in some way: not at all Total score: 0 Depression Screening Interpretation: Negative Depression Screening Done: Yes Source: Developed by Drs. Alvaro Landis, Ban B.WJoe Junior and colleagues, with an educational lee ann from [employer]. Thrive Questionnaire Date Thrive assessed: 01/13/25 I am a: Patient What is your living situation today?: I have a steady place to live Within the past 12 months, did the food you bought not last and you didn't have the money to get more?: Never true Within the past 12 months, did you worry whether your food would run out before you got money to buy more?: Never true Do you have trouble paying for medicines?: No Do you have trouble getting transportation to medical appointments?: No Do you have trouble paying your heating and electricity bill?: No Do you have trouble taking care of your child, family member or friend?: No Do you have trouble with day-to-day activities such as bathing, preparing meals, shopping, managing finances, etc.?: No Are you currently unemployed and looking for a job?: No Are you interested in more education?: No Please select the resources that you would like help with: None THRIVE Score: 0 AUDIT C Alcohol Use Questionnaire (AUDIT-C) 1. How often do you have a drink containing alcohol?: Monthly or less 2. How many drinks containing alcohol do you have on a typical day when you are drinking?: 1 or 2 3. How often do you have six or more drinks on one occasion?: Never Total Score: 1 NAT-7 AMB Questionnaire NAT-7 Date NAT - 7 assessed: 01/13/25 Feeling nervous, anxious, or on edge: 0 = Not at all Not being able to stop or control worryin = Not at all Worrying too much about different things: 0 = Not at all Trouble relaxin = Not at all Being so restless that it is hard to sit still: 0 = Not at all Becoming easily annoyed or irritable: 0 = Not at all Feeling afraid as if something awful might happen: 0 = Not at all Total NAT-7 score (0-4 normal; 5-9 mild; 10-14 moderate; 15-21 severe): 0 Source: Developed by Drs. Alvaro Landis, Joe Durán and colleagues, with an educational lee ann from [employer]. Physical exam (Primary Care) Vital Signs: Last Vital Signs Temp 96.9 F 01/13/25 13:41 Pulse 48 L 01/13/25 13:41 Resp 18 01/13/25 13:41 BP 142/54 H 01/13/25 13:41 Pulse Ox 97 01/13/25 13:41 Oxygen Delivery Method Room Air 01/13/25 13:41 BMI result Body Mass Index 25.6 Tobacco/Smoking Status: Tobacco use Status Tobacco use date assessed 01/13/25 01/13/25 13:49 Patient Tobacco Use Status Former Tobacco user 01/13/25 13:49 Tobacco use type Cigarette 01/13/25 13:49 e-Cigarette/Vaping Use Never Used 01/13/25 13:49 PHQ-9: PHQ-9 Score PHQ-9: Total score 0 01/13/25 13:49 Depression Screening Interpretation: Negative Thrive Assessment: Date of Thrive Assessment Date Thrive assessed 01/13/25 01/13/25 13:49 Const General: alert; No acute distress Eyes Conjunctivae: conjunctivae normal Resp Auscultation: clear to auscultation bilaterally Cardio Rate: regular rate Rhythm: regular rhythm GI Inspection: Yes normal to inspection Extrem General: Yes normal to inspection and No edema Results AMB Hemoglobin A1c AMB Hemoglobin A1c 7.5 % Last Edit by Shikha Sims CMA on 01/13/25 13:57 Results Reviewed Results Reviewed: Laboratory Last Values Hgb A1c (Clinic) 7.5 % (4.0-6.0) H 01/13/25 13:45 Coding Level of Care Code Est Pt Level 4 (05443) Complex EM visit Add On G2211 Diagnoses Essential hypertension I10 Hypertension type: essential hypertension Atherosclerotic cardiovascular disease I25.10 Atrial flutter I48.92 Type 2 diabetes mellitus with hyperglycemia, without long-term current use of insulin E11.65 Diabetes mellitus terminal operations manager insulin use: without terminal operations manager use End stage renal disease N18.6 Hypercholesterolemia E78.00 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 Decrease salt intake and exercise patient is on metoprolol 25 mg once a day (2) Atherosclerotic cardiovascular disease: Code(s): I25.10 - Atherosclerotic heart disease of [place] coronary artery without angina pectoris Category: Medical Plan: Control the cholesterol, weight, blood pressure, diabetes continue with anticoagulation (3) Atrial flutter: Code(s): I48.92 - Unspecified atrial flutter Category: Medical Plan: Continue with anticoagulation continue to monitor renal function (4) Type 2 diabetes mellitus with hyperglycemia: Comment: Dr. Rodas Code(s): E11.65 - Type 2 diabetes mellitus with hyperglycemia Category: Medical Qualifiers: Diabetes mellitus retirement insulin use: without terminal operations manager use Qualified Code(s): E11.65 - Type 2 diabetes mellitus with hyperglycemia Plan: Decrease the amount of carbohydrate intake, pasta, bread, rice and potatoes are all sugar and that is aside from all the sweet stuff, remember that fruits are good but they are Sweet also. 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 She has a history of hypercholesterolemia, with her last cholesterol check in February 2024 showing an LDL of 33 mg/dL. The patient has osteoporosis, with the last bone density test conducted in February 2024. She has coronary artery disease , and she is currently on anticoagulation therapy. Her renal function was normal in the last blood work done in September 2024. The patient has a history of atrial flutter and diabetes mellitus, with a recent hemoglobin A1c of 7.5%. She is on metformin 1000 mg twice a day, and there is a plan to add Jardiance to better control her blood sugar levels. She experienced a cerebrovascular accident in the past and has hypertension, managed with metoprolol 25 mg once a day. The patient has a nuclear cataract and follows up with an eye doctor, last seen in September 2024. She had a right radial artery pseudoaneurysm, status post repair in 2024. The patient reports arthritis, particularly severe in the right knee, and is considering a referral to orthopedics. Health Maintenance - Blood work monitoring for anticoagulation therapy and renal function every three months - Regular follow-up with eye doctor for nuclear cataract - Referral to orthopedics for arthritis management Social History Review of Systems Physical Exam Results - Echocardiogram in July 2024 showing ejection fraction fixed at 6%, with akinetic basal inferior and inferior lateral segments, no valvular problems - Blood work in September 2024 with normal blood count, electrolytes, and renal function, hemoglobin A1c at 7.5% - Cholesterol check in February 2024 with LDL of 33 mg/dL Plan The patient will continue on metoprolol 25 mg once a day for hypertension management. Anticoagulation therapy will be continued, with regular monitoring of renal function and blood work every three months to ensure safety and efficacy. For diabetes management, the patient's current regimen of metformin 1000 mg twice a day will be supplemented with Jardiance, pending insurance approval, to achieve better glycemic control. The patient is advised to maintain hydration and avoid NSAIDs to protect renal function. A referral to orthopedics is planned for further evaluation and management of arthritis, particularly affecting the right knee. Regular follow-up with the eye doctor is recommended for monitoring the nuclear cataract. Patient was informed and verbally consented to the use of an ambient scribe for clinic note documentation during this visit. Discussion Notes I discussed with the patient the importance of continuing her current medications, including metoprolol and anticoagulation therapy, and the need for regular blood work to monitor her renal function and blood counts. We talked about adding Jardiance to her diabetes management plan to better control her blood sugar levels, and I explained the potential side effects and the need to check with her insurance for coverage. I also recommended maintaining hydration and avoiding NSAIDs to protect her renal function. We discussed the referral to orthopedics for her arthritis and the importance of regular follow-up with her eye doctor for her cataract. Patient Instructions - Continue taking metoprolol 25 mg daily. - Maintain hydration and avoid NSAIDs. - Schedule and attend regular blood work every three months. - Follow up with the eye doctor as scheduled. - Consider referral to orthopedics for knee arthritis. Orders: Orders AMB Hemoglobin A1c Today Z13.9 - Encounter for screening, unspecified Complete Blood Count Auto Diff 3 Months E11.65 - Type 2 diabetes mellitus with hyperglycemia Creatinine Urine 3 Months E11.65 - Type 2 diabetes mellitus with hyperglycemia Vitamin B12 and Folate 3 Months E11.65 - Type 2 diabetes mellitus with hyperg lycemia Hemoglobin A1c 3 Months E11.65 - Type 2 diabetes mellitus with hyperglycemia Comprehensive Met. Panel 3 Months E11. - Type 2 diabetes mellitus with hyperglycemia Free T4 (Free Thyroxine) 3 Months E11. - Type 2 diabetes mellitus with hyperglycemia Thyroid Stimulating Hormone 3 Months E11. - Type 2 diabetes mellitus with hyperglycemia Microalbumin, Random (w Creat) 3 Months E11. - Type 2 diabetes mellitus with hyperglycemia Lipid Panel 3 Months E11. - Type 2 diabetes mellitus with hyperglycemia, E78.00 - Pure hypercholesterolemia, unspecified Vitamin D 25-OH Total 3 Months E11. - Type 2 diabetes mellitus with hyperglycemia Referrals Orthopedics Referral M17.11 - Unilateral primary osteoarthritis, right knee Medications: New empagliflozin (Jardiance) 10 mg PO DAILY 30 tabs 3RF E11.65 - Type 2 diabetes mellitus with hyperglycemia Refilled folic acid 1 mg PO DAILY 90 tabs 3RF I10 - Essential (primary) hypertension
[2025-01-13 13:41] VITALS: BP 142/54; PULSE 48; RESP 18; TEMP 36.1; O2SAT 97; BMI 25.6
--- OUTSIDE RECORDS SUMMARY | 2025-01-13 14:13 | XMS_ITS | Clinical Summary ---
Author Organization [facility] Address [address] [place] [address] Phone Care Team Providers Care Personal Secretary Name Role Phone Physician, Pcp Unknown Primary [...] Resolved Date Traumatic rhabdomyolysis, in itial encounter ([facility] V24) 05/22/2024 05/24/2024 JHONNY (acute kidney injury) ([facility] V24) 05/22/2024 05/24/2024 Medical History Medical History Date Comments Hypertension Diabetes mellitus ([facility] V24, [facility] V28) CKD (chronic kidney disease) Atrial flutter ([facility] V24, [facility] V28) Social History Tobacco Use Types [...] 63 05/24/2024 11:40 AM EST Temperature 36.6 C (97.9 F) 05/24/2024 11:40 AM EST Respiratory Rate 20 05/24/2024 11:4 [...] 2024 10/25/2022, 05/10/2022, 11/02/2021, Additional history exists Hepatitis C Screening 03/28/2024 Medicare Annual Wellness Visit 03/28/2024 Osteoporosis Screening (Bone Density Screening) 03/28/2024 Social Influencers of Health Screening 03/28/2024 Diabetes: Annual Urine Albumin-Creatinine Ratio (uACR) 05/22/2024 Depression Screening 06/19/2024 Diabetes: Blood Sugar Control Test (HGBA1C) 11/20/2024 05/22/2024 Influenza Vaccine (#1) 2025 05/24/2022, 2016 Diabetes: Annual GFR (Glomerular Filtration Rate) 05/24/2025 [...] mmol/L LAB CHEMISTRY METHOD 05/24/2024 8:07 AM [facility] Potassium 4.1 3.5 - 5.5 mmol/L LAB CHEMISTRY METHOD 05/24/2024 8:07 AM [facility] Chloride 107 96 - 110 mmol/L LAB CHEMISTRY METHOD 05/24/2024 8:07 AM [facility] CO2 23 21 - 32 mmol/L LAB CHEMISTRY METHOD 05/24/2024 8:07 AM [facility] Anion Gap 9 3 - 11 LAB CHEMISTRY METHOD 05/24/2024 8:07 AM [facility] Glucose 242(H) 70 - 100 mg/dL LAB CHEMISTRY METHOD 05/24/2024 8:07 AM [facility] BUN 21 5 - 25 mg/dL LAB CHEMISTRY METHOD 05/24/2024 8:07 AM [facility] Creatinine 0.77 0.50 - 1.10 mg/dL LAB CHEMISTRY METHOD 05/24/2024 8:07 AM [facility] eGFR 79 >=60 mL/min/1. 73m2 LAB CHEMISTRY METHOD 05/24/2024 8:07 AM [facility] Comment:Calculation based on the Chronic Kidney Disease Epidemiology Collaboration (CKD-EPI) equation refit without adjustment for race. BUN/Creatinine Ratio 27.3 LAB CHEMISTRY METHOD 05/24/2024 8:07 AM [facility] Calcium 8.6 8.5 - 10.5 mg/dL LAB CHEMISTRY METHOD 05/24/2024 8:07 AM [facility] Blood Venous blood specimen / Unknown Venipuncture / Unknown 05/24/2024 6:09 AM EST 05/24/2024 7:26 AM EST us Amanda Day MD LAB BLOOD ORDERABLES Final Res ult [facility] [address] [place] [address], * Lipid panel with reflex to direct LDL (05/23/2024 6:15 AM EST) Cholesterol 107 0 - 200 mg/dL LAB CHEMISTRY METHOD 05/23/2024 8:04 AM EST [facility] Triglycerides 117 0 - 150 mg/dL LAB CHEMISTRY METHOD 05/23/2024 8:04 AM [facility] HDL 54 >=40 mg/dL LAB CHEMISTRY METHOD 05/23/2024 8:04 AM EST [facility] LDL Calculated 30 0 - 100 mg/dL LAB CHEMISTRY METHOD 05/23/2024 8:04 AM [facility] VLDL Cholesterol Matthew 23.4 mg/dL LAB CHEMISTRY METHOD 05/23/2024 8:04 AM EST [facility] Non HDL Chol. (LDL+VLDL) 53 <145 mg/dL LAB CHEMISTRY METHOD 05/23/2024 8:04 AM [facility] Chol/HDL Ratio 2.0 0.0 - 4.4 LAB CHEMISTRY METHOD 05/23/2024 8:04 AM [facility] Blood Venous blood specimen / Unknown Venipuncture / Unknown 05/23/2024 6:15 AM EST 05/23/2024 7:15 AM EST us Pedro Luis DEAN LAB BLOOD ORDERABLES Final Res ult [facility] [address] [place] [address], * (ABNORMAL) Hemoglobin A1c (05/22/2024 1:05 PM EST) Hemoglobin A1C 7.7(H) <6.5 % LAB CHEMISTRY METHOD 05/23/2024 11:39 AM EST [facility] Mean Bld Glu Estim. 174 mg/dL LAB CHEMISTRY METHOD 05/23/2024 11:39 AM EST [facility] Blood Venous blood specimen / Unknown Venipuncture / Unknown 05/22/2024 1:05 PM EST 05/22/2024 1:11 PM EST us Pedro Luis Montoya PA LAB BLOOD ORDERABLES Final Res ult [facility] [address] [place] [address], from Last 3 Months or Most Recently [...] currently active code status orders. Care Teams Personal Secretary Relationship Specialty Start Date End Date Physician, Pcp Unknown PCP - General 05/22/24
--- OUTSIDE RECORDS SUMMARY | 2025-01-13 14:13 | XMS_ITS | Clinical Summary ---
Author Organization [facility] Facility Address [address] [address] Care Team Providers Care Hr Assistant Name Role Phone Nayan Pavon MD Primary Care Provider [phone] Social History Tobacco Use Types Packs/Day Years Used Date Smoking Tobacco: Never Assessed Comments Unknown Sex and Gender Information Value Date Recorded Sex Assigned at Not on file Legal Sex Female 7:57 AM EST Gender Identity Not on file Sexual Orientation Not on file Plan of Treatment Health Maintenance Due Date Last Done Comments Pneumococcal Vaccine: 50+ Ye ars (1 of 1 - PCV) 1996 Influenza Vaccine (#1) 2025 Hepatitis B Vaccine Aged Out No longe r eligible based on patient's age to complete this topic Insurance [facility] Care Teams Hr Assistant Relationship Specialty Start Date End Date Nayan Pavon MD [facility] [place] [address] [place], [place] PCP - General Internal Medicine 06/30/22
== END 2025-01-13 14:28 | disposition home or self-care (01) ==
LOC: HO.HMCH 13:31
PROVIDERS: PCP Internal Medicine; Visit Provider Internal Medicine
DX: I12.0 Hypertensive chronic kidney disease with stage 5 chronic kidney disease or end stage renal disease (principal); I48.92 Unspecified atrial flutter; E11.65 Type 2 diabetes mellitus with hyperglycemia; N18.6 End stage renal disease; I25.10 Atherosclerotic heart disease of native coronary artery without angina pectoris; E78.00 Pure hypercholesterolemia, unspecified; I72.1 Aneurysm of artery of upper extremity

== ENCOUNTER → 2025-01-13 13:31 | Outpatient (BNVA) | payer MEDICARE, SELFPAY | PROVIDERS: PCP Internal Medicine; Visit Provider Internal Medicine | DX: I12.9 Hypertensive chronic kidney disease with stage 1 through stage 4 chronic kidney disease, or unspecified chronic kidney disease (principal); E11.22 Type 2 diabetes mellitus with diabetic chronic kidney disease; E11.65 Type 2 diabetes mellitus with hyperglycemia; I25.10 Atherosclerotic heart disease of native coronary artery without angina pectoris; I48.92 Unspecified atrial flutter; N18.6 End stage renal disease; E78.00 Pure hypercholesterolemia, unspecified; I72.1 Aneurysm of artery of upper extremity; M17.11 Unilateral primary osteoarthritis, right knee; Z79.01 Long term (current) use of anticoagulants | CPT/HCPCS: 83036; 96127; 99212 ==

== ENCOUNTER 2025-03-21 08:31 | Outpatient (REF) | payer MEDICARE, SELFPAY ==
--- NOTE | ~2025-03-21 | XR_ITS ---
EXAMINATION: XR KNEE, RIGHT CLINICAL INFORMATION: M25.569 - Pain in unspecified knee COMPARISON: None available. TECHNIQUE: AP standing, sunrise, and lateral views of the right knee. FINDINGS: There is severe narrowing of the medial joint space. There is moderate narrowing of the lateral patellofemoral joint. There are tricompartmental marginal sites. There is mild medial subluxation of the femur in the knee joint. There is no joint effusion. There is extensive calcification in the arterial vasculature. XR/XR knee RT 3V IMPRESSION: Severe osteoarthritis. Extensive atherosclerotic vascular disease. Electronically signed by: Nimesh Ann MD 03/21/2025 01:31 PM EDT RP
--- OUTSIDE RECORDS SUMMARY | 2025-03-24 09:07 | XMS_ITS | Clinical Summary ---
Author Organization [facility] Address [address] [place] [address] Phone Care Team Providers Care Edge Roller Name Role Phone Physician, Pcp Unknown Primary [...] Resolved Date Traumatic rhabdomyolysis, in itial encounter ([facility] V24) 05/22/2024 05/24/2024 JHONNY (acute kidney injury) ([facility] V24) 05/22/2024 05/24/2024 Medical History Medical History Date Comments Hypertension Diabetes mellitus ([facility] V24, [facility] V28) CKD (chronic kidney disease) Atrial flutter ([facility] V24, [facility] V28) Social History Tobacco Use Types Packs/Day [...] mmol/L LAB CHEMISTRY METHOD 05/24/2024 8:07 AM [facility] Potassium 4.1 3.5 - 5.5 mmol/L LAB CHEMISTRY METHOD 05/24/2024 8:07 AM [facility] Chloride 107 96 - 110 mmol/L LAB CHEMISTRY METHOD 05/24/2024 8:07 AM [facility] CO2 23 21 - 32 mmol/L LAB CHEMISTRY METHOD 05/24/2024 8:07 AM [facility] Anion Gap 9 3 - 11 LAB CHEMISTRY METHOD 05/24/2024 8:07 AM [facility] Glucose 242(H) 70 - 100 mg/dL LAB CHEMISTRY METHOD 05/24/2024 8:07 AM [facility] BUN 21 5 - 25 mg/dL LAB CHEMISTRY METHOD 05/24/2024 8:07 AM [facility] Creatinine 0.77 0.50 - 1.10 mg/dL LAB CHEMISTRY METHOD 05/24/2024 8:07 AM [facility] eGFR 79 >=60 mL/min/1. 73m2 LAB CHEMISTRY METHOD 05/24/2024 8:07 AM [facility] Comment:Calculation based on the Chronic Kidney Disease Epidemiology Collaboration (CKD-EPI) equation refit without adjustment for race. BUN/Creatinine Ratio 27.3 LAB CHEMISTRY METHOD 05/24/2024 8:07 AM [facility] Calcium 8.6 8.5 - 10.5 mg/dL LAB CHEMISTRY METHOD 05/24/2024 8:07 AM [facility] Blood Venous blood specimen / Unknown Venipuncture / Unknown 05/24/2024 6:09 AM EST 05/24/2024 7:26 AM EST us Amanda Day MD LAB BLOOD ORDERABLES Final Res ult [facility] [address] [place] [address], * Lipid panel with reflex to direct LDL (05/23/2024 6:15 AM EST) Cholesterol 107 0 - 200 mg/dL LAB CHEMISTRY METHOD 05/23/2024 8:04 AM EST [facility] Triglycerides 117 0 - 150 mg/dL LAB CHEMISTRY METHOD 05/23/2024 8:04 AM EST [facility] HDL 54 >=40 mg/dL LAB CHEMISTRY METHOD 05/23/2024 8:04 AM [facility] LDL Calculated 30 0 - 100 mg/dL LAB CHEMISTRY METHOD 05/23/2024 8:04 AM [facility] VLDL Cholesterol Matthew 23.4 mg/dL LAB CHEMISTRY METHOD 05/23/2024 8:04 AM EST [facility] Non HDL Chol. (LDL+VLDL) 53 <145 mg/dL LAB CHEMISTRY METHOD 05/23/2024 8:04 AM [facility] Chol/HDL Ratio 2.0 0.0 - 4.4 LAB CHEMISTRY METHOD 05/23/2024 8:04 AM [facility] Blood Venous blood specimen / Unknown Venipuncture / Unknown 05/23/2024 6:15 AM EST 05/23/2024 7:15 AM EST us Pedro Luis DEAN LAB BLOOD ORDERABLES Final Res ult [facility] [address] [place] [address], * (ABNORMAL) Hemoglobin A1c (05/22/2024 1:05 PM EST) Hemoglobin A1C 7.7(H) <6.5 % LAB CHEMISTRY METHOD 05/23/2024 11:39 AM EST [facility] Mean Bld Glu Estim. 174 mg/dL LAB CHEMISTRY METHOD 05/23/2024 11:[address] [facility] ([facility]) [facility] Blood Venous blood specimen / Unknown Venipuncture / Unknown 05/22/2024 1:05 PM EST 05/22/2024 1:11 PM EST us Pedro Luis DEAN LAB BLOOD ORDERABLES Final Res [facility] [address] [place] [address], from Last 3 Months or Most Recently [...] currently active code status orders. Care Teams Edge Roller Relationship Specialty Start Date End Date Physician, Pcp Unknown PCP - General 05/22/24
--- OUTSIDE RECORDS SUMMARY | 2025-03-24 09:08 | XMS_ITS | Clinical Summary ---
Author Organization [facility] Facility Address [address] [address] Care Team Providers Care Route Driver Coin Machines Name Role Phone Nayan Pavon MD Primary Care Provider Social History Tobacco Use Types Packs/Day Years [...] patient's age to complete this topic Insurance [facility] Care Teams Route Driver Coin Machines Relationship Specialty Start Date End Date Nayan Pavon MD [facility] [place] [address] [place], [place] PCP - General Internal Medicine 06/30/22
== END 2025-03-21 08:32 | disposition home or self-care (01) ==
LOC: HO.HOSX 08:31
PROVIDERS: Visit Provider Physician Assistant
DX: M17.11 Unilateral primary osteoarthritis, right knee (principal)
CPT/HCPCS: 73562; 99212

== ENCOUNTER 2025-03-21 13:16 | Outpatient (AMB) | payer MEDICARE, SELFPAY ==
--- NOTE | 2025-03-21 13:22 | MHC.OFFVIS ---
Vital Signs 03/21/25 13:40 Height 5 ft 5 in Weight 154 lb BMI 25.6 Intake Visit Reasons: OV-Rt knee OA f/u Intake Note: Jennifer is a 80 year old female who presents today for a follow up of her bilateral knee OA. At patients last visit with Dr. Paul in February, a discussion was discussed for a TKA. She also had a aspiration and injection on 03/24/22 of both knees. She states injection did not help. Her pain is located at the anterior aspect of knee and travels down the leg. Finds little relief with Tylenol Arthritis. She mentions that she has had a couple of falls and her knee gives out. She uses a walker with ambulation. Accompanied by: Daughter Allergies No Known Allergies Allergy (Verified 03/21/25 13:31) HPI HPI OV-Rt knee OA f/u: Details: Ms. Tameka gaines is a 80-year-old female who presents to the office today accompanied by her daughter for chronic bilateral knee pain right worse than left. She has a significant complicated past medical history of hypertension, hyperlipidemia, diabetes type 2, obesity, tobacco abuse (quit ), atrial flutter on Eliquis (noncompliance in the past due to a high co-pay), CVA, NSTEMI , cardiac catheterization, atherosclerotic cardiovascular disease, second-degree AV block and hypercholesterolemia. Patient uses a walker to assist with ambulation. She is looking to discuss right total knee arthroplasty. Patient was last seen in our cardio vascular office on 08/02/2024 by ERLIN León who deemed the patient intermediate to high risk for perioperative complications. Additionally, the patient had a right radial artery repair performed on 09/20/[address] Salinas. [facility] Medical History Preoperative cardiovascular examination Hypertension History of CVA (cerebrovascular accident) Adjustment disorder with depressed mood Hyponatremia Atherosclerotic cardiovascular disease Atrial flutter Preop exam for internal medicine Impacted cerumen of both ears Annual physical exam Frequency of micturition Generalized anxiety disorder Obesity (BMI 30.0-34.9) Annual physical exam Primary osteoarthritis of left knee Second degree AV block Overweight (BMI 25.0-29.9) Insomnia Tobacco abuse Hypercholesterolemia Osteoarthrosis Type 2 diabetes mellitus with hyperglycemia Surgical History History of tonsillectomy History of cholecystectomy H/O breast reconstruction History of hip replacement Family History Father Cancer Mother Medical history unknown Brother Liver cancer Sister Hypertension COPD (chronic obstructive pulmonary disease) Social History Household Members: None Housing: Apartment Do you presently have visiting nurse or other home services: No Alcohol intake: never Patient Tobacco Use Status: Former Tobacco user Tobacco use type: Cigarette Cigarettes Per Day: 2 e-Cigarette/Vaping Use: Never Used Second Hand Smoke Exposure: No Advance Directives Date on File: 10/07/22 service: No Current occupational status: retired Current occupation: Right Handed Cognitive needs: Yes (walker, Cane, Wheelchair) Hearing needs: No Vision needs: Yes (Glasses) Review of Systems Const All systems reviewed & are unremarkable except as noted in HPI and below Physical Exam Vital Signs: BMI result Body Mass Index 25.6 Const General: cooperative, healthy appearing and no acute distress Orientation/consciousness: patient oriented x3 HEENT Head: Yes normocephalic and Yes atraumatic Eyes EOM: EOMs intact bilaterally Resp Effort & Inspection: normal respiratory effort and able to speak in complete sentences Cardio Jugular venous distension: no JVD Skin General skin exam: turgor normal Rashes: no rashes Neuro General: patient oriented x3 Extrem Other: Right Knee: Antalgic gait TTP medial compartment 5-125 degrees ROM Psych Appearance: grossly normal Mental Status: mental status grossly normal Affect: normal affect Attitude: cooperative Assessment & Plan Assessment & Plan (1) Osteoarthritis of right knee: Code(s): M17.11 - Unilateral primary osteoarthritis, right knee Category: Medical Plan Ms. English this is a 80-year-old female who presents to the office today accompanied by her daughter for chronic bilateral knee pain right worse than left. She has a significant complicated past medical history of hypertension, hyperlipidemia, diabetes type 2, obesity, tobacco abuse (quit ), atrial flutter on Eliquis (noncompliance in the past due to a high co-pay), CVA, NSTEMI , cardiac catheterization, atherosclerotic cardiovascular disease, second-degree AV block and hypercholesterolemia. Patient uses a walker to assist with ambulation. She is looking to discuss right total knee arthroplasty. Patient was last seen in our cardio vascular office on 08/02/2024 by ERLIN León who deemed the patient intermediate to high risk for perioperative complications. Additionally, the patient had a right radial artery repair performed on 09/20/[address] Salinas. While in the office today, I discussed with the patient at length that with her past medical history and comorbidities that unfortunately she would not be a surgical candidate for our practice. Patient does not wish to move forward with any additional conservative treatment options such as physical therapy, cortisone injection or viscosupplementation. I am happy to help this patient with a referral in which I have placed a [place] [facility] who would it be more equipped to handle her comorbidities. Patient understands and accepts. A referral has been placed. She will follow up with our office PRN, sooner if needed. X-rays of the right knee which were obtained while in the office today and were reviewed by me, Adelia Stanley PA-C, revealed significant osteoarthritis. Orders: Orders XR knee RT 3V Today M25.569 - Pain in unspecified knee Referrals Orthopedics Referral M17.11 - Unilateral primary osteoarthritis, right knee Coding Level of Care Code Est Pt Level 4 (83874) Diagnoses Osteoarthritis of right knee M17.11
[2025-03-21 13:40] VITALS: BMI 25.6
--- OUTSIDE RECORDS SUMMARY | 2025-03-21 13:42 | XMS_ITS | Clinical Summary ---
Author Organization [facility] Address [address] [place] [address] Phone Care Team Providers Care Test Deck Supervisor Name Role Phone Physician, Pcp Unknown Primary [...] Resolved Date Traumatic rhabdomyolysis, in itial encounter ([facility] V24) 05/22/2024 05/24/2024 JHONNY (acute kidney injury) ([facility] V24) 05/22/2024 05/24/2024 Medical History Medical History Date Comments Hypertension Diabetes mellitus ([facility] V24, [facility] V28) CKD (chronic kidney disease) Atrial flutter ([facility] V24, [facility] V28) Social History Tobacco Use Types Packs/Day Years Used Date Smoking Tobacco: Never Smokeless Tobacco: Never Tobacco Cessation:Counseling Given: Not Answered Alcohol Use Standard Drinks/Week Comments Never 0 (1 standard drink = 0.6 oz pur e alcohol) Interpersonal Safety Answer Date Record ed Physical Abuse Unrecognized value 05/24/2024 Verbal Abuse Unrecognized value 05/24/2024 Comments Unknown Sex and Gender Information [...] of 2 - PCV) 11/09/2022 11/09/2021, 04/25/2017 Hepatitis C Screening 03/28/2024 Medicare Annual Wellness Visit 03/28/2024 Osteoporosis Screening (Bone Density Screening) 03/28/2024 Social Influencers of Health Screening 03/28/2024 Diabetes: Annual Urine Albumin-Creatinine Ratio (uACR) 05/22/2024 Depression Screening 06/19/2024 Diabetes: Blood Sugar Control Test (HGBA1C) 11/20/2024 05/22/2024 COVID-19 Vaccine ( season) 2025 10/25/2022, 05/10/2022, 11/02/2021, Additional history exists Influenza Vaccine (#1) 2025 05/24/2022, 2016 Diabetes: [...] 05/24/2024 8:07 AM [facility] eGFR 79 >=60 mL/min/1. 73m2 LAB CHEMISTRY METHOD 05/24/2024 8:07 AM [facility] Comment:Calculation based on the Chronic [...] MD LAB BLOOD ORDERABLES Final Res ult [facility] [address] [place] [address], * Lipid panel with reflex to direct LDL (05/23/2024 6:15 AM EST) Cholesterol 107 0 - 200 mg/dL LAB CHEMISTRY METHOD 05/23/2024 8:04 AM EST [facility] Triglycerides 117 0 - 150 mg/dL LAB CHEMISTRY METHOD 05/23/2024 8:04 AM EST [facility] HDL 54 >=40 mg/dL LAB CHEMISTRY METHOD 05/23/2024 8:04 AM [facility] LDL Calculated 30 0 - 100 mg/dL LAB CHEMISTRY METHOD 05/23/2024 8:04 AM [facility] VLDL Cholesterol Matthew 23.4 mg/dL LAB CHEMISTRY METHOD 05/23/2024 8:04 AM EST [facility] Non HDL Chol. (LDL+VLDL) 53 <145 mg/dL LAB CHEMISTRY METHOD 05/23/2024 8:04 AM [facility] Chol/HDL Ratio 2.0 0.0 - 4.4 LAB CHEMISTRY METHOD 05/23/2024 8:04 AM [facility] Blood Venous blood specimen / Unknown Venipuncture / Unknown 05/23/2024 6:15 AM EST 05/23/2024 7:15 AM EST us Pedro Luis DEAN LAB BLOOD ORDERABLES Final Res ult [facility] [address] [place] [address], * (ABNORMAL) Hemoglobin A1c (05/22/2024 1:05 PM EST) Hemoglobin A1C 7.7(H) <6.5 % LAB CHEMISTRY METHOD 05/23/2024 11:39 AM EST [facility] Mean Bld Glu Estim. 174 mg/dL LAB CHEMISTRY METHOD 05/23/2024 11:39 AM EST [facility] Blood Venous blood specimen / Unknown Venipuncture / Unknown 05/22/2024 1:05 PM EST 05/22/2024 1:11 PM EST us Pedro Luis DEAN LAB BLOOD ORDERABLES Final Res [facility]) [facility] [address] [place] [address], from Last 3 Months or Most Recently [...] currently active code status orders. Care Teams Test Deck Supervisor Relationship Specialty Start Date End Date Physician, Pcp Unknown PCP - General 05/22/24
== END 2025-03-21 14:00 | disposition home or self-care (01) ==
LOC: HO.HOS 13:17
PROVIDERS: PCP Internal Medicine; Visit Provider Physician Assistant
DX: M17.11 Unilateral primary osteoarthritis, right knee (principal)
CPT/HCPCS: 99214

== ENCOUNTER → 2025-03-21 13:19 | Outpatient (BNV) | payer MEDICARE, SELFPAY | PROVIDERS: Visit Provider Radiology Diagnostic Radiology | DX: M17.11 Unilateral primary osteoarthritis, right knee (principal); I70.90 Unspecified atherosclerosis | CPT/HCPCS: 73562 ==